=== PATIENT | female | born 1945 | race Caucasian/White ===

== ENCOUNTER 2022-08-31 08:48 | Emergency (ER) | payer OTHER, SELFPAY ==
[2022-08-31] VITALS (65 sets, daily range): BP systolic 57–163; BP diastolic 30–121; PULSE 80–127; RESP 20; TEMP 36.2; O2SAT 92–100
--- NOTE | 2022-08-31 09:37 | ED.GENADULT ---
HPI - General Adult General Time Seen by Provider: 09:37 Date Seen: 08/31/22 Chief complaint: Edema Stated complaint: Facial and tongue swelling +Covid 9 days Time Seen by Provider: 08/31/22 09:37 Source: patient, RN notes reviewed and old records reviewed Mode of arrival: ambulatory Limitations: no limitations History of Present Illness HPI narrative: Mary Jane is a very pleasant 77-year-old female with a history of hypertension currently on lisinopril, history of GERD currently on Protonix who comes to the emergency room for facial swelling. Patient notes the onset of some mild facial swelling yesterday morning at 1000 hours. She notes that she noticed this after she was brushing her teeth. She had no gum pain or recent work on her teeth. Last night she took a Benadryl after the swelling seemed to spread to her upper lip. Throughout the next 24 hours she has noticed gradual spreading of this to across her upper lip to her left lower jaw line and now to the right side of her tongue. She has never had this happen to her in the past. She denies any new medications or [id number]-dqa-[id number] medications. She did take her lisinopril this morning. Patient denies any difficulty with breathing, wheezing, swallowing or sore throat. She has not noticed a change in her voice. She notes that she is on day 9 or 10 of a COVID illness. She denies respiratory problems or shortness of breath. Related Data Previous Rx's Medication Instructions Recorded lisinopril 40 mg tablet 40 mg PO QDAY #90 tabs 06/20/22 Allergies Allergy/AdvReac Type Severity Reaction Status Date / Time bacitracin AdvReac Intermediate Verified 08/31/22 09:02 [From Neosporin ([id number])] gentamicin AdvReac Intermediate Verified 08/31/22 09:02 neomycin AdvReac Intermediate Verified 08/31/22 09:02 [From Neosporin ([id number])] polymyxin B AdvReac Intermediate Verified 08/31/22 09:02 [From Neosporin ([id number])] tobramycin AdvReac Intermediate Verified 08/31/22 09:02 Review of Systems Status of ROS: Reports: 10 or more systems reviewed and unremarkable except as noted in History and below Const: Denies: fever or fatigue ENMT: Denies: throat pain, neck pain, throat swelling, difficulty swallowing or hoarseness Cardio: Denies: chest pain or shortness of breath with exertion Resp: Denies: shortness of breath or cough GI: Denies: abdominal pain, nausea or difficulty swallowing : Denies: painful urination Musculo: Denies: neck pain Integ/Breast: Reports: skin swelling Neuro: Denies: headache Endo: Denies: fatigue Allergy/Immuno: Denies: throat swelling PFSH PFSH Medical History Hypertension Social History Smoking Status: Smoker, status unknown Non-prescribed substance use: denies use Exam Narrative: Exam Narrative: Mary Jane is alert and oriented. Very well-spoken woman in no acute distress. Nontoxic in appearance Eyes are clear. Patient has obvious non erythematous edema of the upper lip with some slight protrude parents there. Mild fullness negligible of the right lower draw line. No pain with palpation. Dentition appear to be intact with no swelling of the gum line. Tongue shows some slight increased size on the right less than 25% of the tongue compromise. Posterior oropharynx easily seen and open. Neck is supple without lymphadenopathy. Heart with regular rate and rhythm and lungs are clear in all lung dalton. Abdomen soft. Lower extremities without edema or calf tenderness. Const: Vital Signs, click to edit/add: Vital Signs - 24 hr 08/31/22 08:57 08/31/22 09:50 08/31/22 13:43 Temperature 97.1 F L Pulse Rate 97 Pulse Rate [Right Pulse Oximeter] 83 Respiratory Rate 20 Blood Pressure Blood Pressure [Ri ght Upper Arm] 156/121 H Pulse Oximetry 100 97 Oxygen Delivery Me thod Room Air 08/31/22 14:00 08/31/22 14:02 08/31/22 14:20 Temperature Pulse Rate 83 86 87 Pulse Rate [Right Pulse Oximeter] Respiratory Rate Blood Pressure 161/94 H Blood Pressure [Ri ght Upper Arm] Pulse Oximetry 97 96 97 Oxygen Delivery Me thod 08/31/22 14:23 08/31/22 14:40 08/31/22 14:42 Temperature Pulse Rate 89 92 80 Pulse Rate [Right Pulse Oximeter] Respiratory Rate Blood Pressure 162/89 H 152/102 H Blood Pressure [Ri ght Upper Arm] Pulse Oximetry 97 98 98 Oxygen Delivery Me thod 08/31/22 14:43 08/31/22 15:00 08/31/22 15:02 Temperature Pulse Rate 89 93 92 Pulse Rate [Right Pulse Oximeter] Respiratory Rate Blood Pressure 149/97 H Blood Pressure [Ri ght Upper Arm] Pulse Oximetry 98 97 97 Oxygen Delivery Me thod 08/31/22 15:20 08/31/22 15:22 08/31/22 15:40 Temperature Pulse Rate 94 95 96 Pulse Rate [Right Pulse Oximeter] Respiratory Rate Blood Pressure 147/82 H Blood Pressure [Ri ght Upper Arm] Pulse Oximetry 97 97 97 Oxygen Delivery Me thod 08/31/22 15:42 08/31/22 16:00 08/31/22 16:01 Temperature Pulse Rate 109 H 99 102 H Pulse Rate [Right Pulse Oximeter] Respiratory Rate Blood Pressure 135/82 139/87 Blood Pressure [Ri ght Upper Arm] Pulse Oximetry 98 97 98 Oxygen Delivery Me thod 08/31/22 16:20 08/31/22 16:22 08/31/22 16:40 Temperature Pulse Rate 93 98 102 H Pulse Rate [Right Pulse Oximeter] Respiratory Rate Blood Pressure 141/69 H Blood Pressure [Ri ght Upper Arm] Pulse Oximetry 98 97 97 Oxygen Delivery Me thod 08/31/22 16:42 Temperature Pulse Rate 103 H Pulse Rate [Right Pulse Oximeter] Respiratory Rate Blood Pressure 139/83 Blood Pressure [Ri ght Upper Arm] Pulse Oximetry 96 Oxygen Delivery Me thod Documenting provider has reviewed patient's vital signs: yes Course Course Hospital Course: At this time I am most worried about angioedema. There does not appear to be underlying dental problems here. Patient is on day 9 or 10 of a COVID infection. She does not appear to have any sequela of that as she is breathing normally and oxygen saturations are 100%. At this time patient will receive dexamethasone 10 mg, Benadryl 50 mg, famotidine 20 mg IV. She will be monitor here in the emergency room. We did speak about the possibility of worsening symptoms and should that occur I will need to likely RSI/intubation and transfer for complement therapy. She does understand that. Reevaluation(s) Reevaluation #1: Patient noted to be improved at 1130 after having received steroids, H2 maricarmen as well as antihistamine. Will continue to monitor at this time. Reevaluation #2: Patient feels that she has been resting comfortably. She does not feel any worse than when she was previously checked on and she is better than when she 1st arrived. I feel that her exam shows that she has had mild improvement of the swelling but still has some edema edema in the upper lip. Time: 13:18 Reevaluation #3: Patient now noted to have worsening swelling once again although she still states she is feeling well. She has developed a slight list to her speech. Airway continues to be patent. Consult with [facility] expediter service order. Time: 16:00 Additional Reevaluation(s): Post epinephrine administration, hydroxyzine IM and repeat dose of steroids, patient is noted to be improved. Still has fullness of the jaw however and some slight edema of the upper lip. At this time would recommend continued monitoring and admission. Consultations Consultation #1: I had the pleasure of speaking to Dr. Fong expediter service order at [facility]. Patient's swelling has slightly worsened since she has been here. She herself does not feel better but I can visualize this. He did suggest the use of epi, repeat dose of dexamethasone 10 mg and hydroxyzine as he feels this has more antihistamine benefit than Benadryl does. I did discuss this with patient and she is willing to do a trial of this. If this is not helpful will need to call [facility] back as patient likely needs complement. Will consider RSI prior to transport. Time: 14:30 Vital Signs Vital signs: Initial Vital Signs Temperature 97.1 F L 08/31/22 08:57 Temperature Source Temporal Artery Scan 08/31/22 08:57 Pulse Rate 83 08/31/22 08:57 Pulse Rhythm 08/31/22 08:57 Respiratory Rate 20 08/31/22 08:57 Blood Pressure 156/121 H 08/31/22 08:57 Blood Pressure Mean 132 08/31/22 08:57 Blood Pressure Position Semi-Fowlers 08/31/22 08:57 Pulse Oximetry 100 08/31/22 08:57 Oxygen Delivery Method 08/31/22 08:57 Vital Signs Temperature 97.1 F L 08/31/22 08:57 Pulse Rate 83 08/31/22 08:57 Respiratory Rate 20 08/31/22 08:57 Blood Pressure 156/121 H 08/31/22 08:57 Pulse Oximetry 100 08/31/22 08:57 Oxygen Delivery Method 08/31/22 08:57 Temperature 97.1 F L 08/31/22 08:57 Pulse Rate 103 H 08/31/22 16:42 Respiratory Rate 20 08/31/22 08:57 Blood Pressure 139/83 08/31/22 16:42 Pulse Oximetry 96 08/31/22 16:42 Oxygen Delivery Method 08/31/22 08:57 Medical Decision Making MDM Narrative Medical decision making narrative: 1. Angioedema-patient received dexamethasone 10 mg, Benadryl 50 mg, famotidine 20 mg IV initially. She did show improvement but however did note increasing edema after approximately 2-1/2 hours. After consultation with expediter service order patient received additional dose of dexamethasone 10 mg, hydroxyzine 50 mg IM as well as EpiPen. Patient has had gradual improvement but again still has some mild persisting edema. I do not feel comfortable sending her home as she did take her morning dose of lisinopril. Plan is to admit to the floor if we are able. At this time no beds available until 2300 hours Patient is willing to stay in the emergency room if necessary. Medications for overnight include: Famotidine IV at 2200 hours Hydroxyzine 50 mg p.o. at 2200 hours and every 6 hours after that. Epi as needed for recurrent symptoms. Should a 2nd dose of epinephrine be needed suggest transfer to tertiary care for complement therapy. If patient needs to stay in the ED overnight and has resolution of symptoms will need to discharge home on prednisone 40 mg daily for 4 days, Zyrtec 10 mg p.o. b.i.d. for 4 days. This case will be signed out to my partner Dr. Vazquez. At this point I have spoken with Dr. Philippe hospitalist should a bed become available at 2300 hours. Medical Records Medical records reviewed: Yes I reviewed the patient's medical records Lab Data Lab results reviewed: Yes I reviewed the patient's lab results Labs: Lab Results 08/31/22 08/31/22 Range/Units 09:50 09:50 WBC 6.29 (4.50-11.00) K/uL RBC 4.02 (4.00-5.20) m/uL Hgb 12.2 (12.0-16.0) gm/dL Hct 38.8 (33.0-51.0) % MCV 97 (80-100) fL MCH 30 (26-34) pg MCHC 31 L (32-36) gm/dL RDW Coeff of Valdo 13.1 (11.5-15.5) % Plt Count 332 (140-440) K/uL Neut % (Auto) 65.0 (42.0-72.0) % Lymph % (Auto) 22.7 (20-44) % Pennington % (Auto) 8.3 (0.0-11.0) % Eos % (Auto) 3.2 (0.0-7.0) % Baso % (Auto) 0.6 (0.0-3.0) % Neut # (Auto) 4.09 (1.7-7.0) K/uL Lymph # (Auto) 1.43 (0.90-2.90) K/uL Pennington # (Auto) 0.50 (0.00-0.90) K/UL Eos # (Auto) 0.20 (0.00-0.50) K/uL Baso # (Auto) 0.04 (0.00-0.30) K/uL Abs Immat Gran (auto) 0.01 (0.00-0.30) K/uL Imm/Tot Granulo (auto) 0.2 % Sodium 141 (135-149) mmol/L Potassium 4.0 (3.6-5.1) mmol/L Chloride 107 (96-114) mmol/L Carbon Dioxide 27 (20-32) mmol/L BUN 21 (7-30) mg/dL Creatinine 0.9 (0.5-1.5) mg/dL Estimated GFR 66 ml/min Glucose 105 (60-115) mg/dL Calcium 9.4 (8.4-10.6) mg/dL Total Bilirubin 0.6 (0.1-1.5) mg/dL AST 31 (12-35) U/L ALT 25 (4-35) U/L Alkaline Phosphatase 87 (40-150) U/L C-Reactive Protein 0.7 (0.5-1.0) mg/dL Total Protein 7.8 (6.0-8.3) g/dL Albumin 4.4 (3.3-5.0) g/dL Procalcitonin 0.05 (<0.50) ng/mL Critical Care Time Critical Care Time Critical Care Time: Yes Attestation: The patient required my highest level preparedness to intervene emergently and I personally spent this critical care time directly and personally managing the patient. This critical care time included: Obtaining a history; Examining the patient; Pulse oximetry; Ordering and reviewing of studies; Arranging urgent treatment with development of a management plan; Evaluation of patients response to treatment; Frequent reassessment discussions with other providers. This critical care time was performed to assess and manage the high probability of imminent life-threatening deterioration that could result in multiorgan failure. It was exclusive of separate billable procedures and treating other patients and teaching time. Total Critical Care Time in Minutes: 90 Discharge Plan Discharge Clinical Impression: Angio-edema Patient Disposition: Home, Self-Care Condition: Improved Additional Instructions: For patient if she is discharged from the emergency room: Stop lisinopril. This is most likely the cause of your facial swelling. You will need to follow-up with your primary MD for new blood pressure medications. Zyrtec 10 mg twice daily for 4 days Prednisone 40 mg daily for 4 days Return to the emergency room for worsening symptoms especially for swelling of the face or tongue. Prescriptions: No Action lisinopril 40 mg tablet 40 mg PO QDAY Qty: 90 0RF Follow Up/Referrals: Anderson Castillo MD [Primary Care Provider] - Stand Alone Forms: [facility] Info Instructions
--- OUTSIDE RECORDS SUMMARY | 2022-08-31 10:05 | XMS_ITS | Encounter Summary ---
:1945 Author Organization [facility] Address [address] [place] [address] Care Team Providers Name Role Phone Chastity Davidson M.D. 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 - 01/03/2019 2:15 PM CDT PREPROCEDURE DIAGNOSIS: Ganglion cyst left ring finger POSTPROCEDURE DIAGNOSIS: Ganglion cyst left ring finger PROCEDURE: Excision of ganglion cyst from the left ring finger SURGEON: Jesus Choe MD ASSIST: None ANESTHESIA: Local EBL: Minimal COMPLICATIONS: None DESCRIPTION OF THE PROCEDURE: Prior to the procedure the risks and benefits of the procedure were discussed with the patient. Written consent was obtained and the site was identified. The patient was brought to the procedure room and placed in the supine position. Patient was prepped and draped in usual sterile fashion. Patient identified using preoperative pause. Attention was turned to the patient's left ring finger where there was a 8 mm subcutaneous ganglion cyst just proximal to the PIP joint. A longitudinal incision was made in the skin overlying the cyst using a 15 blade and then blunt sharpdissection was used to dissect out the cystic mass. The mass was excised in its entirety. The wound was irrigated with normal saline and the skin was closed using interrupted 4-0 Prolene sutures. Clean, dry dressings were applied. The patient tolerated the procedure well. There were no complications. documented in this encounter Plan of Treatment Not on filedocumented as of this encounter Visit Diagnoses Diagnosis Mass Finger Left documented in this encounter Care Teams Textile Machine Operator Relationship Specialty Start Date End Date Chastity Davidson M.D. PCP - General 03/19/17 01/11/20 documented as of this encounter
--- OUTSIDE RECORDS SUMMARY | 2022-08-31 10:05 | XMS_ITS | Encounter Summary ---
:1945 Author Organization [facility] Address [address] [place] [address] Care Team Providers Name Role Phone Chastity Davidson M.D. Primary Care Provider Unavailable Reason for Visit Reason Comments Follow-up Post-op Follow-up Post-op Outpatient (Routine) - Closed Specialty Diagnoses / Procedures Referred By Contact Refer red To Contact Orthopedic Surgery Gabriela Hernandez, [facility] [address] [place] [phone] Referral ID Status Reason Start Date Expiration Date Visits Requ ested Visits Authorized [id number] Closed 12/08/2018 12/08/2019 1 1 Encounter Details Date Type Department Care Team Description 06/10/2019 Office Visit Department of Fausto Hoffman, Follow Up Knee Orthopedic Surgery in [place] 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 - 06/10/2019 8:00 AM CDT SUBJECTIVE Pain reported: CHIEF COMPLAINT / REASON FOR VISIT Mary Jane Rockwell is a 74 y.o. female who presents for follow-up of Follow-up and Post-op of the Left Knee and Follow-up and Post-op of the Right Knee and is under the care of Chastity Davidson M.D.. HISTORY OF PRESENT ILLNESS Patient is a very pleasant 74-year-old female presenting today with her for revaluation of her knees. She is status post total knee arthroplasties approximately 1 year ago. Today she is doing quite well. She is very happy with the outcome of her knees. She has no pain and has been using it normally without difficulty or issue. Denies fevers or chills. No numbness or paresthesias. Her surgical history is notable for: Past Surgical History: Procedure Laterality Date ??? ARTHROPLASTY REPLACEMENT TOTAL KNEE Left 03/30/2018 Procedure: ARTHROPLASTY REPLACEMENT TOTAL KNEE; Surgeon: Fausto Hoffman D.O.; Location: [facility] ??? ARTHROPLASTY REPLACEMENT TOTAL KNEE Right 06/01/2018 Procedure: ARTHROPLASTY REPLACEMENT TOTAL KNEE; Surgeon: Fausto Hoffman D.O.; Location: [facility] ??? COLONOSCOPY N/A 02/01/2018 Procedure: COLONOSCOPY; Surgeon: Jazmyne Weaver M.D.; Location: [facility] ??? CYST REMOVAL ??? ESOPHAGOGASTRODUODENOSCOPY N/A 02/01/2018 Procedure: ESOPHAGOGASTRODUODENOSCOPY; Surgeon: Jazmyne Weaver M.D.; Location: [facility] ??? TONSILLECTOMY AND ADENOIDECTOMY N/A 1950 Tonsillectomy and adenoidectomy The following portions of the patient's history were reviewed and updated as appropriate: allergies,current medications, family history, medical history, social history, surgical history and problem list. REVIEW OF SYSTEMS All other systems reviewed and are negative. OBJECTIVE PHYSICAL EXAM Ortho Exam General Appearance: Appears to be their stated age and healthy. Body habitus: Normal. The patient isalert and oriented to person, place, and time. The patient's mood appears good. HEENT: Normocephalic, extraocular movements intact. Respiratory: Respirations are unlabored. Psych: Patient has a normal mood and affect. Extremities: Today her knees demonstrate essentially symmetric appearance. No erythema or ecchymosis. Incisions are well healed. No effusion. She has full extension bilaterally with flexion to approximately 130??. Knees are stable to varus valgus stress testing. Negative Homans. She has intact EHL FHLdorsiflexion and plantar flexion. Sensations are intact distally and symmetric. Cap refills are brisk. IMAGING Obtained radiographs of both knees were obtained reviewed. X-rays do not demonstrate new acute process. No fractures or dislocations. No interval change regarding alignment or positioning of components. ASSESSMENT / PLAN 1. Status post right total knee arthroplasty 06/01/2018 2. Status post left total knee arthroplasty, 03/30/2018 ?? Today we had a lengthy discussion patient regarding her knees. She continues to do quite well. She is happy with her outcome, as are we. She is using it normally without pain or restriction. Today we did discuss precautions regarding her knee replacements. All her questions were answered in detail. Atthis point she may follow up with us on an as-needed basis. She voiced understanding agreement this plan. documented in this encounter Plan of Treatment Not on filedocumented as of this encounter Visit Diagnoses Diagnosis Follow Up Knee Replacement Status Post - Primary documented in this encounter Care Teams Cycle Manager Relationship Specialty Start Date End Date Chastity Davidson M.D. PCP - General 03/19/17 01/11/20 documented as of this encounter
--- OUTSIDE RECORDS SUMMARY | 2022-08-31 10:05 | XMS_ITS | Encounter Summary ---
:1945 Author Organization [facility] Address [address] [place] [address] Care Team Providers Name Role Phone Chastity Davidson M.D. Primary Care Provider Unavailable Reason for Referral Outpatient (Routine) - Closed Specialty Diagnoses / Procedures Referred By Contact Refer red To Contact Plastic Surgery Diagnoses Mass Finger Left [facility]ush [address] [place] [phone] Referral ID Status Reason Start Date Expiration Date Visits Requ ested Visits Authorized [id number] Closed 12/07/2018 12/07/2019 1 1 LINING PASTER Reason for Visit Reason Comments Other cyst on left ring finger Encounter Details Date Type Department Care Team Description 12/07/2018 Office Visit Department of Family Matt Davidson Left Medicine in Ankush Haywood (Primary Dx) [address] [phone] Social History Tobacco Use Types Packs/Day Years Used Date Smoking Tobacco: Former Cigarettes 0.3 35 Smokeless Tobacco: Never Comments: quit about 10 yrs ago Alcohol Use Standard Drinks/Week Comments Yes 3 (1 standard drink = 0.6 oz pure 2x or so per month 1 drink each alcohol) time Sex Assigned at Date Recorded Female 10/12/2017 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 - 12/07/2018 10:00 AM CST SUBJECTIVE CHIEF COMPLAINT/REASON FOR VISIT Chief Complaint Patient presents with ??? Other cyst on left ring finger HISTORY OF PRESENT ILLNESS Mary Jane Rockwell is a 73 y.o. female who presents with off mass on her left 4th finger on the side of the finger between PIP and MCP. She had a similar 1 above her wrist that was taken off. She saysit has been about 2 months and her said it has been about 2 years that it has been there. Itis nontender but she can't get her ring on and off. REVIEW OF SYSTEMS Review of systems was negative except as noted in HPI. ALLERGIES/CONTRAINDICATIONS Allergies Allergen Reactions ??? Gentamicin Other (see comments) Made my eyes worse ??? Neosporin (Sff-Sjx-Boogg) [Rsukdgbr-Kmawagxcbt-Vaifmtwmz] Other (see comments) ??? Tobramycin Other (see comments) Made my eyes worse CURRENT MEDICATIONS Current Outpatient Prescriptions Medication Sig Dispense Refill ??? acetaminophen (for_TYLENOL 8 HR) 650 mg ER tablet Take 1,300 mg by mouth 2 (two) times a day. Asneeded ??? CALCIUM CARBONATE/VITAMIN D3 (CALCIUM WITH VITAMIN D ORAL) Take by mouth daily. ??? lisinopril (PRINIVIL,ZESTRIL) 5 mg tablet Take 1 tablet (5 mg total) by mouth daily. 90 tablet 1 ??? multivitamin capsule Take by mouth daily. ??? pantoprazole (PROTONIX) 20 mg EC tablet Take 1 tablet (20 mg total) by mouth daily. 90 tablet 3 OBJECTIVE VITAL SIGNS BP 136/84 (BP Location: Left arm, Patient Position: Sitting, Cuff Size: Large) Pulse 76 Temp 36.7 ??C (Temporal) Resp 20 Wt 84.8 kg BMI 34.40 kg/m?? PHYSICAL EXAMINATION General: The patient is in no apparent distress and is alert and oriented. Mood and affect normal. Patient is very pleasant. Lungs: Clear to auscultation bilaterally. Heart: Regular rate and rhythm without murmur. Extremities: As described above on the side of the left ring finger there is a 2 cm x 1 cm by 0.5 cmtall soft slightly bluish mass. . ASSESSMENT / PLAN #1 Mass Finger Left We are going to refer her to Plastic surgery because of where this is along the neurovascular chain of that finger. - Plastic Surgery - Hand and upper extremity consult (clinic); Future; Expected date: 12/07/2018 ADMINISTRATIVE BILLING Total time spent 20 minutes, 15 minutes spent in counseling and coordination of care. LINING PASTER documented in this encounter Plan of Treatment Scheduled Referrals Name Type Priority Associated Diagnoses [facility] - [facility]patient Referral Routine Mass Finger Left Expected: Hand and upper 12/07/2018 extremity consult (Approxima te), (clinic) Expires: 12/07/2021 documented as of this encounter Visit Diagnoses Diagnosis Mass Finger Left - Primary documented in this encounter Care Teams Bridge Maintenance Worker Relationship Specialty Start Date End Date Chastity Davidson M.D. PCP - General 03/19/17 01/11/20 documented as of this encounter
--- OUTSIDE RECORDS SUMMARY | 2022-08-31 10:05 | XMS_ITS | Encounter Summary ---
:1945 Author Organization [facility] Address [address] [place] [address] Care Team Providers Name Role Phone Elsewhere, Pcp Primary Care Provider Unavailable Encounter Details Date Type Department Care Team Description 07/30/2021 Orders Only [facility] PCP [facility] Aaron Lerner, D.O. 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
--- OUTSIDE RECORDS SUMMARY | 2022-08-31 10:05 | XMS_ITS | Encounter Summary ---
:1945 Author Organization [facility] Address [address] [place] [address] Care Team Providers Name Role Phone Chastity Davidson M.D. Primary Care Provider Unavailable Encounter Details Date Type Department Care Team Description 09/09/2019 Orders Only [facility]CP [facility] MNBart Padilla M.D. 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 PCP - General 03/19/17 01/11/20 documented as of this encounter
--- OUTSIDE RECORDS SUMMARY | 2022-08-31 10:05 | XMS_ITS | Encounter Summary ---
:1945 Author Organization [facility] Address [address] [place] [address] Care Team Providers Name Role Phone Chastity Davidson M.D. Primary Care Provider Unavailable Reason for Visit Reason Comments Deformity Ring finger Outpatient (Routine) - Closed Specialty Diagnoses / Procedures Referred By Contact Refer red To Contact Plastic Surgery Diagnoses Mass Finger Left Chastity Davidson [facility] [address] [place] [phone] Referral ID Status Reason Start Date Expiration Date Visits Requ ested Visits Authorized [id number] Closed 12/07/2018 12/07/2019 1 1 Encounter Details Date Type Department Care Team Description 12/22/2018 Comprehensive Visit Department of Jesus Choe Mass Finger Left Orthopedic Surgery Ankush Trotter (Primary Dx) in [address] [place], [place] [phone] (Work) [phone] Social History Tobacco Use Types Packs/Day Years Used Date Smoking Tobacco: Former Cigarettes 0.3 35 Smokeless Tobacco: Never Comments: quit about 10 yrs ago Alcohol Use Standard Drinks/Week Comments Yes 3 (1 standard drink = 0.6 oz pure 2x or so per month 1 drink each alcohol) time Sex Assigned at Date Recorded 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 - 12/22/2018 2:30 PM CDT SUBJECTIVE CHIEF COMPLAINT / REASON FOR VISIT Mary Jane Rockwell is a 73 y.o. female who presents for evaluation of Deformity of the Left Hand (Ring finger). HISTORY OF PRESENT ILLNESS Cherri is a 73-year-old woman who presents today for evaluation and treatment of a mass of her left ring finger. The mass has been there for several months. She denies any pain from the cyst however shedoes note that it is no longer possible to fit her wedding ring on. She denies any history of trauma. Past Surgical History: Procedure Laterality Date ??? ARTHROPLASTY REPLACEMENT TOTAL KNEE Left 03/30/2018 Procedure: ARTHROPLASTY REPLACEMENT TOTAL KNEE; Surgeon: Fausto Hoffman D.O.; Location: [facility] ??? ARTHROPLASTY REPLACEMENT TOTAL KNEE Right 06/01/2018 Procedure: ARTHROPLASTY REPLACEMENT TOTAL KNEE; Surgeon: Fausto Hoffman D.O.; Location: [facility] ??? COLONOSCOPY N/A 02/01/2018 Procedure: COLONOSCOPY; Surgeon: Jazmyne Weaver M.D.; Location: [facility] ??? CYST REMOVAL ??? ESOPHAGOGASTRODUODENOSCOPY N/A 02/01/2018 Procedure: ESOPHAGOGASTRODUODENOSCOPY; Surgeon: Jazmyne Weaver M.D.; Location: [facility] ??? TONSILLECTOMY AND ADENOIDECTOMY N/A 1950 Tonsillectomy and adenoidectomy The following portions of the patient's history were reviewed and updated as appropriate: allergies,current medications, medical history, social history, surgical history and problem list. Smoking status: Former Smoker Packs/day: 0.25 Years: 35.00 Types: Cigarettes Smokeless tobacco: Never Used Comment: quit about 10 yrs ago REVIEW OF SYSTEMS Review of Systems OBJECTIVE Vitals: 12/22/18 1423 BP: 126/82 Pulse: 70 Temp: 36.2 ??C PHYSICAL EXAM GENERAL: Well appearing in no apparent distress. NEURO: Alert and oriented x 3 PSYCH: Normal mood and affect HEENT: Extra ocular movements intact. Normal external ears. RESPIRATORY: Respirations non-labored. SKIN: No rashes, lacerations or abrasions. VASCULAR: Normal capillary refill. Ortho Exam Evaluation of the left ring finger demonstrates a roughly 1 cm firm mass along the dorsum of the PIPjoint. The mass is firm but mobile. She has full range of motion in the joint. ASSESSMENT / PLAN Mary Jane Rockwell is a 73 y.o. woman with what appears to be a simple ganglion cyst arising from the PIP joint of the left ring finger. We discussed treatment options including aspiration and surgical excision. She prefers to have the lesion excised. We will make arrangements to have this performed in the procedure room under local anesthesia at a later date. documented in this encounter Plan of Treatment Scheduled Orders Name Type Priority Associated Diagnoses Order S chedule ORS Miscellaneous Procedures Routine Mass Finger Left Expect ed: procedure 12/22/2018 (Approximate), Expires: 2021 documented as of this encounter Visit Diagnoses Diagnosis Mass Finger Left - Primary documented in this encounter Care Teams Maintenance Worker Municipal Relationship Specialty Start Date End Date Chastity Davidson M.D. PCP - General 03/19/17 01/11/20 documented as of this encounter
--- OUTSIDE RECORDS SUMMARY | 2022-08-31 10:05 | XMS_ITS | Encounter Summary ---
:1945 Author Organization [facility] Address [address] [place] [address] Care Team Providers Name Role Phone Chastity Davidson M.D. Primary Care Provider Unavailable Reason for Visit Reason Comments Med Refill Encounter Details Date Type Department Care Team Description 04/20/2019 Refill Department of Family Medicine in [facility]anna Temple L.P.N. 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 PCP - General 03/19/17 01/11/20 documented as of this encounter
--- OUTSIDE RECORDS SUMMARY | 2022-08-31 10:05 | XMS_ITS | Encounter Summary ---
:[address] [facility] Address [address] [place] [address] Care Team Providers Name Role Phone Zandra Valera APRN, C.N.P., M.S.N. Primary Care Provider Encounter Details Date Type Department Care Team Description 11/09/2020 Orders Only [facility] Lees Jr[facility] M.D. 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 PCP - General 01/12/20 12/25/[address] [place] [address] [place] [phone] documented as of this encounter
--- OUTSIDE RECORDS SUMMARY | 2022-08-31 10:05 | XMS_ITS | Clinical Summary ---
:1945 Author Organization [facility] Address [address] [place] [address] Care Team Providers Name Role Phone Elsewhere, Pcp Primary Care Provider Unavailable Source Comments Patient records contain information from all sites at [facility]. For routine questions regarding patient records, call [phone] during business hours, M-F 8:00 AM - 5:00 PM Central Time. Record requests for emergency care only can be directed to [phone] at any time.[facility] Allergies Active Allergy Reactions Severity Noted Date Comments Gentamicin Other (see comments) 11/13/2009 Made my eyes worse Yucxqoxa-Fwhlfiszeq-Gzjus Other (see comments) 010 Triple antibotic yxin Tobramycin Other (see comments) 11/13/2009 Made my eyes worse Medications Medication Sig Dispensed Refills Start Date End Date Status CALCIUM Take by mouth 0 11/13/2009 Activ e CARBONATE/VITAMIN D3 daily. (CALCIUM WITH VITAMIN D ORAL) multivitamin capsule Take by mouth 0 11/13/2009 Active daily. acetaminophen Take 1,300 mg by 0 Active (for_TYLENOL 8 HR) 650 mouth 2 (two) mg ER tablet times a day. As needed amoxicillin (AMOXIL) Take four (4) 4 capsule 0 12/22/2018 Active 500 mg capsule capsules - one (1) to two (2) hours prior to dental appointment. Additional Information Patient not taking. Reported on 12/02/2019 pantoprazole (PROTONIX) 20 mg Take 1 tablet (20 mg 90 tablet 3 12/02/2019 Active EC tablet total) by mouth daily. lisinopriL (PRINIVIL,ZESTRIL) Take 1 tablet (10 mg 90 tablet 3 12/02/2019 Active 10 mg tablet total) by mouth daily. Active Problems Problem Noted Date Chronic Idiopathic Constipation 06/02/2018 Gastroesophageal Reflux Disease 06/01/2018 Hypertension Essential Primary 06/01/2018 Follow Up Knee Replacement Status Post 05/10/2018 Overview: Added automatically from request for mindy matias [id number] Anemia 11/06/2017 Overview: Added automatically from request for mindy matias [id number] Hemorrhage Gastrointestinal 10/22/2017 Arthropathy 11/14/2009 Aftercare Total Knee Arthroplasty Resolved Problems Problem Noted Date Resolved Date Primary Osteoarthritis Knee Right 03/03/20182018 Primary Osteoarthritis Knee Left 03/03/2018 019 Hypertension Benign Renovascular 12/24/2010 020 Overview: Benign hypertension Immunizations Name Administration Dates Next Due Influenza, Unspecified 07/24/2014 PCV13 10/12/2017 PPSV23 12/17/2010 Tdap 01/14/2011 influenza high dose (65 years or older) 08/20/2017, 06/20/20 16, 08/31/2015 (PF) Family History Medical History Relation Name Comments Parkinsons disease Aunt Colon cancer Father Lung cancer Grandfather Prostate cancer Grandfather Dementia Grandmother Breast cancer Mother Alcohol consumption Son 1 carlos Anxiety State, Unspecified Son 1 carlos Hypertension Son 1 carlos Hypertension Son 2 warner Relation Name Status Comments Aunt Daughter cesia Alive Father Grandfather Grandmother Mother Son 1 carlos Alive Son 2 warner Alive Social History Tobacco Use Types Packs/Day Years Used Date Smoking Tobacco: Former Cigarettes 0.3 35 Smokeless Tobacco: Never Comments: quit about 10 yrs ago Alcohol Use Standard Drinks/Week Comments Yes 3 (1 standard drink = 0.6 oz pure 2x or so per month 1 drink each alcohol) time Sex Assigned at Date Recorded 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 Last Filed Vital Signs Vital Sign Reading Time Taken Comments Blood Pressure 160/101 03/31/2020 4:00 PM CDT Pulse 73 03/31/2020 3:45 PM CDT Temperature 36.9 ??C (98.4 ??F) 03/31/2020 12:56 PM CDT Respiratory Rate 20 03/31/2020 12:56 PM CDT Oxygen Saturation 99% 03/31/2020 3:45 PM CDT Inhaled Oxygen Concentration - - Weight 87.5 kg (192 lb 14.4 oz) 03/31/2020 12:55 PM CDT Height 160 cm (5' 3) 03/31/2020 12:55 PM CDT Body Mass Index 34.17 03/31/2020 12:55 PM CDT Plan of Treatment Health Maintenance Due Date Last Done Comments Office Visit for Blood Pressure 1945 Check / Re-check Zoster Vaccines (1 of 2) 1995 Depression Screening (Annual 10/05/2021 PHQ-2) Fall Risk Screen (Annual) 10/05/2021 DTaP,Tdap,and Td Vaccines (3 - Td 06/23/2032 06/23/2022, or Tdap) Pneumococcal vaccine (65+ years) Completed 10/12/2017, Colonoscopy Discontinued 02/01/2018, 01/27/2006 Colorectal Cancer Surveillance Discontinued Hepatitis C Screening Completed 12/02/2019 Mammogram Discontinued 10/22/2020, 10/14/2019, 10/07/2018, Additional history exists COVID-19 Vaccine Completed 06/23/2022, 08/01/2021, 12/16/2020, Additional history exists Influenza Vaccine Completed 06/23/2022, 07/05/2021, 07/19/2020, Additional history exists CT Colonography Discontinued Cologuard Discontinued Medical Devices Implanted Type Area Drums Teacher Device Identifier Shelf Model / Expiration Serial / Date Lot Cmnt Bn Hi Visc Pmma 40 - [id number] Bone Cement Stryke r [id number] 10/04/2019 [id number] / Implanted: Qty: 1 on 06/01/2018 by Fausto Hoffman D.O. at [facility] / [id number] Ins Tib Att Rot Ps Sz4 7 - [id number] Knee Left: [employer] [id number] 05/04/2022 [id number] / Implanted: Qty: 1 on 03/30/2018 by Fausto Hoffman D.O. at [facility] Implant Knee / [id number] Ins Tib Att Rot Ps Sz4 10 - [id number] Knee Depuy Synthes [id number] 06/04/2022 [id number] / Implanted: Qty: 1 on 06/01/2018 by Fausto Hoffman D.O. at [facility] Implant / [id number] Insurance Payer Benefit Plan / Subscriber ID Effective Dates Phone Addre ss Type Group AETNA AETNA MEDICARE [id number] 2021-Present [phone] [address] [place] [address] AARP AARP MEDICARE [id number] 2020-Present [phone] [address] [address] [place] [address] Advance Directives For more information, please contact: [phone] Documents on File Type Date Recorded Patient Store Team Leader Explanati on Advance Directives 04/02/2018 11:24 AM Health Car e Directive Latest Code Status on File Code Status Date Activated Date Inactivated Comments Full Code 06/01/2018 3:40 PM 06/03/2018 1:12 PM Question Answer Comments Full Code: Discussed Code Status History Code Status Date Activated Date Inactivated Comments Full Code 06/01/2018 6:24 AM 06/01/2018 3:40 PM Question Answer Comments Full Code: Discussed Full Code 03/30/2018 1:27 PM 04/01/2018 4:24 PM Question Answer Comments Full Code: Discussed Full Code 03/30/2018 7:46 AM 03/30/2018 1:26 PM Question Answer Comments Full Code: Discussed Healthcare Agents on File Name Relationship Healthcare Agent Relationship Co mmunication Nima Rockwell Spouse Health Care Agent [phone] ( Home) Cesia Rockwell Daughter First Alternate Health Care Age nt Warner Rockwell Son Second Alternate Health Care Ag ent Care Teams Tent Assembler Relationship Specialty Start Date End Date Elsewhere, Pcp PCP - General Family Medicine 12/26/20
--- OUTSIDE RECORDS SUMMARY | 2022-08-31 10:05 | XMS_ITS | Encounter Summary ---
:1945 Author Organization [facility] Address [address] [place] [address] Care Team Providers Name Role Phone Chastity Davidson M.D. Primary Care Provider Unavailable Encounter Details Date Type Department Care Team Description 06/10/2019 Hospital Encounter Department of Gabriela Hernandez 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 As needed amoxicillin (AMOXIL) 500 Take four (4) 4 capsule 0 12/23/19 19 mg capsule capsules - one (1) to two (2) hours prior to dental appointment. CALCIUM CARBONATE/VITAMIN Take by mouth daily. 0 11/13/2009 D3 (CALCIUM WITH VITAMIN D ORAL) multivitamin capsule Take by mouth daily. 0 11/13 lisinopril Take 1 tablet (5 mg 90 tablet 1 04/20/201912/02 (PRINIVIL,ZESTRIL) 5 mg total) by mouth tablet daily. pantoprazole (PROTONIX) Take 1 tablet (20 mg 90 tablet 3 12/02/2019 20 mg EC tablet total) by mouth daily. documented as of this encounter Plan of Treatment Not on filedocumented as of this encounter Procedures Procedure Name Priority Date/Time Associated Comments Diagnosis DX KNEE BILATERAL RAD - Routine 06/10/2019 7:30 Aftercare Total Res ults for this 3 VIEWS (most inpatients AM CDT Knee Arthroplasty proced ure are in and all the results outpatients) section. documented in this encounter Results DX Knee Bilateral 3 Views (06/10/2019 7:30 AM CDT) Anatomical Region Laterality Modality Lower Extremity, Knee, Musculoskeletal RST LOS, Bilateral Digital Radiography Musculoskeletal ARZ LOS, Muskuloskeletal FLA LOS Specimen (Source) Anatomical Collection Method Collection Time Re ceived Time Location / / Volume Laterality 06/10/2019 8:06 AM CDT Impressions 06/10/2019 8:08 AM CDT Stable bilateral total knee arthroplasti es. Narrative 06/10/2019 8:08 AM CDT EXAM: DX KNEE BILATERAL 3 VIEWS COMPARISON: 12/08/2018 and 07/05/2018. FINDINGS: Soft tissues are unremarkable except for a left knee joint effusion. No fracture or destructive lesion is rafael ntified. Bilateral total knee arthroplasties are stable and unchanged. There is no significant interval change compared with 12/08/2018 and 07/05/2018. Procedure Note Pierre Marquez Jr., M.D. - 2018 EXAM: DX KNEE BILATERAL 3 VIEWS COMPARISON: 12/08/2018 and 07/05/2018. FINDINGS: Soft tissues are unremarkable except for a left knee joint effusion. No fracture or destructive lesion is rafael ntified. Bilateral total knee arthroplasties are stable and unchanged. There is no significant interval change compared with 12/08/2018 and 07/05/2018. IMPRESSION: Stable bilateral total knee arthroplasti es. Gabriela Hernandez P.A.-C. [facility] IMAGING PROC EDURES documented in this encounter Visit Diagnoses Diagnosis Aftercare Total Knee Arthroplasty documented in this encounter Care Teams Production Operations Manager Relationship Specialty Start Date End Date Chastity Davidson M.D. PCP - General 03/19/17 01/11/20 documented as of this encounter
--- OUTSIDE RECORDS SUMMARY | 2022-08-31 10:05 | XMS_ITS | Encounter Summary ---
:1945 Author Organization [facility] Address [address] [place] [address] Care Team Providers Name Role Phone Chastity Davidson M.D. Primary Care Provider Unavailable Reason for Referral Outpatient (Routine) - Closed Specialty Diagnoses / Procedures Referred By Contact Refer zoraida To Contact Orthopedic Surgery Gabriela Hernandez [facility] [address] [place] [phone] Referral ID Status Reason Start Date Expiration Date Visits Requ ested Visits Authorized [id number] Closed 12/08/2018 12/08/2019 1 1 T MANAGER Reason for Visit Reason Comments Follow-up LV: 09/08, L TKA, DOS 03/30, i edd completed, states she has no concerns Follow-up Outpatient (Routine) - Closed Specialty Diagnoses / Procedures Referred By Contact Ana Laura conway To Contact Orthopedic Surgery Gabriela Hernandez [facility]. [address] [place] [phone] Referral ID Status Reason Start Date Expiration Date Visits Requ ested Visits Authorized [id number] Closed 09/08/2018 09/08/2019 1 1 Encounter Details Date Type Department Care Team Description 12/08/2018 Office Visit Department of Gabriela [facility] Total Knee Orthopedic Surgery in [place] [facility] ([place], [place] [address] [phone] Social History Tobacco Use Types Packs/Day Years Used Date Smoking Tobacco: Former Cigarettes 0.3 35 Smokeless Tobacco: Never Comments: quit about 10 yrs ago Alcohol Use Standard Drinks/Week Comments Yes 3 (1 standard drink = 0.6 oz pure 2x or so per month 1 drink each alcohol) time Sex Assigned at Date Recorded 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 - 12/08/2018 2:45 PM CST REASON FOR VISIT Follow-up bilateral knee HISTORY OF PRESENT ILLNESS Mary Jane Rockwell is a 73 y.o. female who underwent a right total knee arthroplasty on 06/01/2018 and a left total knee arthroplasty on 03/30/[address] Hoffman. At her last appointment, patient was continuing to do quite well. Admitted to little to no pain. Was doing home exercise program. Today she states she continues to do well. No concerns or complaints. Overall very pleased with both knees. No other concerns today. Denies numbness, tingling, and fevers. SURGICAL HISTORY Past Surgical History: Procedure Laterality Date ??? ARTHROPLASTY REPLACEMENT TOTAL KNEE Left 03/30/2018 Procedure: ARTHROPLASTY REPLACEMENT TOTAL KNEE; Surgeon: Fausto Hoffman D.O.; Location: [facility] ??? ARTHROPLASTY REPLACEMENT TOTAL KNEE Right 06/01/2018 Procedure: ARTHROPLASTY REPLACEMENT TOTAL KNEE; Surgeon: Fausto Hoffman D.O.; Location: [facility] ??? COLONOSCOPY N/A 02/01/2018 Procedure: COLONOSCOPY; Surgeon: Jazmyne Weaver M.D.; Location: [facility] ??? CYST REMOVAL ??? ESOPHAGOGASTRODUODENOSCOPY N/A 02/01/2018 Procedure: ESOPHAGOGASTRODUODENOSCOPY; Surgeon: Jazmyne Weaver M.D.; Location: [facility] ??? TONSILLECTOMY AND ADENOIDECTOMY N/A 1950 Tonsillectomy and adenoidectomy HOME MEDICATIONS Home Medications ACETAMINOPHEN (FOR_TYLENOL 8 HR) 650 MG ER TABLET Take 1,300 mg by mouth 2 (two) times a day. As needed CALCIUM CARBONATE/VITAMIN D3 (CALCIUM WITH VITAMIN D ORAL) Take by mouth daily. LISINOPRIL (PRINIVIL,ZESTRIL) 5 MG TABLET Take 1 tablet (5 mg total) by mouth daily. MULTIVITAMIN CAPSULE Take by mouth daily. PANTOPRAZOLE (PROTONIX) 20 MG EC TABLET Take 1 tablet (20 mg total) by mouth daily. SOCIAL HISTORY Tobacco history is History Smoking Status ??? Former Smoker ??? Packs/day: 0.25 ??? Years: 35.00 ??? Types: Cigarettes Smokeless Tobacco ??? Never Used Comment: quit about 10 yrs ago . REVIEW OF SYSTEMS Constitutional: negative for chills, fever, nausea, vomiting. OBJECTIVE VITAL SIGNS BP 128/84 (12/08/18 1435) Temp 36.5 ??C (12/08/18 1435) Pulse Resp 14 (12/08/18 1435) SpO2 Body mass index is 34.69 kg/m??. LAB VALUES Lab Results Component Value Date WBC 6.7 06/03/2018 HGB 9.3 (L) 06/03/2018 HCT 28.9 (L) 06/03/2018 MCV 96.3 06/03/2018 PLT 244 06/03/2018 O PHYSICAL EXAM Orthopedic Physical Examination GENERAL: Patient appears alert, active, comfortable, and in no acute distress. The patient is alert and oriented to person, place, and time and able to follow commands. does answer all questions appropriately. SKIN/VASCULAR: The left lower extremity does appear well perfused. Dorsalis Pedis pulse is 2+ and capillary refill is <= 2 sec through all toes. Surgical site appearance: Intact. No significant erythema, ecchymosis, or concerns for infection. Calves are soft and nontender. MUSCULOSKELETAL: Attention was drawn to the patients bilateral lower extremities. Patient demonstrates unaffected ability to perform active ankle dorsiflexion, plantar flexion, inversion, eversion, as well as flex and extend all toes. EHL and FHL intact. Range of motion demonstrates range of motion dem onstrates 0 to 130?? bilaterally. Negative varus and valgus stress bilaterally. NEUROLOGIC: Intact sensation to light touch through the deep peroneal, superficial peroneal, sural, saphenous, and tibial nerve distributions of the affected leg. DIAGNOSTIC RESULTS Radiographs of the right knee demonstrate bilateral knee arthroplasties are intact. No acute fractures or dislocations noted. No evidence of loosening or dislocation. IMPRESSION/ASSESSMENT/PLAN 1. Status post right total knee arthroplasty performed on 06/01/[address] Hoffman 2. Status post left total knee arthroplasty performed on 03/30/[address] Hoffman Mary Jane Rockwell is a 73 y.o. female who is doing well and continuing to progress in her recoveryas expected. On exam she continues to be neurovascularly intact and has adequate range of motion. Overall we are very pleased with her progress. No concerns. She continues to be pain-free. Patient is approximately 6 months out from surgery on her right knee in 9 months out from surgery on her left knee. We will see her back in approximately 6 months for re-evaluation radiographs of her bilateral knees. ADMINISTRATIVE/BILLING No Charge, post-operative visit. T MANAGER documented in this encounter Plan of Treatment Scheduled Referrals Name Type Priority Associated Order Schedule Diagnoses Orthopedic Surgery Outpatient Referral Routine Ex pected: office visit 06/10/2019 (clinic) (Approximate), Expires: 12/08/2021 documented as of this encounter Results DX Knee Bilateral 3 [...] total knee arthroplasti es. Gabriela Hernandez P.A.-C. IMG DIAGNOSTIC IMAGING PROC EDURES documented in this encounter Visit Diagnoses Diagnosis Aftercare Total Knee Arthroplasty - Prim magdi Aftercare Total Knee Arthroplasty documented in this encounter Care Teams Garnett Mechanic Relationship Specialty Start Date End Date Chastity Davidson M.D. PCP - General 03/19/17 01/11/20 documented as of this encounter
--- OUTSIDE RECORDS SUMMARY | 2022-08-31 10:05 | XMS_ITS | Encounter Summary ---
:1945 Author Organization [facility] Address [address] [place] [address] Care Team Providers Name Role Phone Zandra Valera APRN, C.N.PLa, M.S.N. Primary Care Provider Encounter Details Date Type Department Care Team Description 03/05/2020 Orders Only [facility] PCP [facility] MNT Zandra Valera APRN, C.N.P., M.S.N. 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 PCP - General 01/12/20 12/25/20 [address] [facility] [place] [phone] documented as of this encounter
--- OUTSIDE RECORDS SUMMARY | 2022-08-31 10:05 | XMS_ITS | Encounter Summary ---
:1945 Author Organization [facility] Address [address] [place] [address] Care Team Providers Name Role Phone Chastity Davidson M.D. Primary Care Provider Unavailable Reason for Visit Reason Comments Post-op Left hand ring finger cyst e xcision Encounter Details Date Type Department Care Team Description 01/10/2019 Office Visit Department of Jesus Choe M.D. 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 - 01/10/2019 11:30 AM CDT REASON FOR VISIT Chief Complaint Patient presents with ??? Left Hand - Post-op Left hand ring finger cyst excision HPI Patient is a very pleasant 73 y.o. female here today status post excision of a ganglion cyst from the left ring finger on 01/03/2019 under the care of Dr. Choe. She feels as though this is well-healing. She denies any questions or concerns at the visit today. ROS Review of systems is negative other then pertinent positives in the HPI. VITAL SIGNS Vitals: 01/10/19 1119 BP: 128/74 Temp: 36.4 ??C Physical Exam GENERAL: Patient is well appearing, in no apparent distress NEURO: Patient is alert and oriented X3 PSYCH: Patient has normal and affect HEENT: Extraocular movements are intact. Ears are of normal positioning. RESPIRATORY: Respirations are unlabored MUSCULOSKELETAL: Patient moves extremities in a grossly normal range of motion. SKIN: Sutures were removed by nursing. Incision line remained clean, dry, and intact without erythema, induration, or drainage of the left ring finger. ASSESSMENT Ganglion cyst of the left ring finger status post excision PLAN Patient will continue to watch this area for any signs or symptoms of infection. She will call with questions, concerns, or any changes in symptoms. She was in agreement with this plan. documented in this encounter Plan of Treatment Not on filedocumented as of this encounter Visit Diagnoses Diagnosis Cyst Ganglion - Primary documented in this encounter Care Teams Welder Repair Relationship Specialty Start Date End Date Chastity Davidson M.D. PCP - General 03/19/17 01/11/20 documented as of this encounter
--- OUTSIDE RECORDS SUMMARY | 2022-08-31 10:05 | XMS_ITS | Encounter Summary ---
:1945 Author Organization [facility] Address [address] [place] [address] Care Team Providers Name Role Phone Elsewhere, Pcp Primary Care Provider Unavailable Reason for Visit Reason Comments Appointment BP check Encounter Details Date Type Department Care Team Description 10/19/2020 Clinical Communication Department of Jarocho Valera (BP Family Medicine in [facility], check) Marni Pollock, M.S.N. 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 - 12/26/2020 10:05 AM CDT Please attempt to contact patient, again. Inform patient nurse BP checks are no charge to patient and see if she would be willing to schedule. Telephone Encounter - Valeria Mukherjee - 10/19/2020 12:59 PM CST Patient states that do to insurance changes we are now out of network and she is working on checkingwith them to see if she can continue to come here or not. Does not want to schedule at this time. PREMISE SERVICE REPRESENTATIVE Telephone Encounter - Bonita Brooks L.PLaN. - 10/19/2020 11:41 AM OFF PREMISE SERVICE REPRESENTATIVE Please call patient to come in for a Blood Pressure check. Order is in the que. Thank you PREMISE SERVICE REPRESENTATIVE documented in this encounter Plan of Treatment Not on filedocumented as of this encounter Visit Diagnoses Not on filedocumented in this encounter Care Teams Undercover Cop Relationship Specialty Start Date End Date Elsewhere, Pcp PCP - General Family Medicine 12/26/20 documented as of this encounter
--- OUTSIDE RECORDS SUMMARY | 2022-08-31 10:05 | XMS_ITS | Encounter Summary ---
:1945 Author Organization [facility] Address [address] [place] [address] Care Team Providers Name Role Phone Zandra Valera APRN, C.N.P., M.S.N. Primary Care Provider Reason for Referral Outpatient (Routine) - Closed Specialty Diagnoses / Procedures Referred By Contact Refer red To Contact Diagnoses Screening Mammogram Average Risk Patient Zandra Valera APRN, [facility] Region Procedures BI Breast Screening Bilateral C.N.P., M.S.N. [address] [place] [phone] Referral ID Status Reason Start Date Expiration Date Visits Requ ested Visits Authorized [id number] Closed 10/19/2020 10/19/2021 1 1 ASSEMBLY TEAM WORKER Reason for Visit Outpatient (Routine) - Closed Specialty Diagnoses / Procedures Referred By Contact Refer red To Contact Diagnoses Screening Mammogram Average Risk Patient Zandra Valera APRN, [facility] Region Procedures BI Breast Screening Bilateral C.N.P., M.S.N. [address] [place] [phone] Referral ID Status Reason Start Date Expiration Date Visits Requ ested Visits Authorized [id number] Closed 10/19/2020 10/19/2021 1 1 Encounter Details Date Type Department Care Team Description 10/22/2020 Hospital Encounter Department of Kj Valera Mammogram Radiology in Zandra Allen APRN, Average Risk Patient [place] C.N.P., M.S.N. 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 As needed amoxicillin (AMOXIL) 500 Take four (4) 4 capsule 0 12/23/19 19 mg capsule capsules - one (1) to two (2) hours prior to dental appointment. CALCIUM CARBONATE/VITAMIN Take by mouth daily. 0 11/13/2009 D3 (CALCIUM WITH VITAMIN D ORAL) lisinopriL Take 1 tablet (10 mg 90 tablet 3 12/02/2019 (PRINIVIL,ZESTRIL) 10 mg total) by mouth tablet daily. multivitamin capsule Take by mouth daily. 0 11/13 pantoprazole (PROTONIX) 20 Take 1 tablet (20 mg 90 tablet 3 12/02/2019 mg EC tablet total) by mouth daily. documented as of this encounter Plan of Treatment Not on filedocumented as of this encounter Procedures Procedure Name Priority Date/Time Associated Comments Diagnosis BI BREAST RAD - Routine 10/22/2020 11:45 Screening Results fo r this SCREENING (most inpatients AM SUB ASSEMBLY TEAM WORKER Mammogram Average proced ure are in BILATERAL and all Risk Patient the results outpatients) section. documented in this encounter Results BI Breast Screening Bilateral (10/22/2020 11:45 AM SUB ASSEMBLY TEAM WORKER) Anatomical Region Laterality Modality Breast, Breast Imaging RST LOS, Breast Imaging ARZ LOS, H[address] st Bilateral Mammography Imaging FLA LOS Specimen (Source) Anatomical Collection Method Collection Time Re ceived Time Location / / Volume Laterality 10/22/2020 11:59 AM SUB ASSEMBLY TEAM WORKER Impressions 10/22/2020 12:00 PM SUB ASSEMBLY TEAM WORKER Benign. RECOMMENDATION: ??Annual Screening Mammo gram ASSESSMENT: ??BI-RADS: 2: Benign. Narrative 10/22/2020 12:00 PM SUB ASSEMBLY TEAM WORKER EXAM: ??BI BREAST SCREENING BILATERAL Current study was evaluated with a [employer] KROGNI Aided Detection (CAD) system. INDICATION: ??Screening mammogram. COMPARISON: ??Prior exam(s) were availab le and reviewed for comparison. DENSITY: ??c. The breast(s) are heteroge neously dense, which may obscure small masses. FINDINGS: ??No mammographic findings of malignancy. Scattered benign calcifications within both breasts. Procedure Note Yohan Bateman M.D. - 10/22/2020Formatt ing of this note might be different from the original. EXAM: BI BREAST SCREENING BILATERAL Current study was evaluated with a [employer] ter Aided Detection (CAD) system. INDICATION: Screening mammogram. COMPARISON: Prior exam(s) were available and reviewed for comparison. DENSITY: c. The breast(s) are heterogene ously dense, which may obscure small masses. FINDINGS: No mammographic findings of ma lignancy. Scattered benign calcifications within both breasts. IMPRESSION: Benign. RECOMMENDATION: Annual Screening Mammogr am ASSESSMENT: BI-RADS: 2: Benign. Michael Eugene APRNNSidney., M.S.N. IMG BI PROCEDURE S documented in this encounter Visit Diagnoses Diagnosis Screening Mammogram Average Risk Patient documented in this encounter Care Teams Scrap Iron Loader Relationship Specialty Start Date End Date Zandra Valera APRN, C.N.P., M.S.N. PCP - General 01/12/20 12/25/[address] [place] [address] [place] [phone] documented as of this encounter
--- OUTSIDE RECORDS SUMMARY | 2022-08-31 10:05 | XMS_ITS | Encounter Summary ---
:1945 Author Organization [facility] Address [address] [place] [address] Care Team Providers Name Role Phone Chastity Davidson M.D. Primary Care Provider Unavailable Encounter Details Date Type Department Care Team Description 12/08/2018 Hospital Encounter Department of Gabriela Hernandez [facility] Total Knee Radiology, [facility], in [address] [id number] Social History Tobacco Use Types Packs/Day Years Used Date Smoking Tobacco: Former Cigarettes 0.3 35 Smokeless Tobacco: Never Comments: quit about 10 yrs ago Alcohol Use Standard Drinks/Week Comments Yes 3 (1 standard drink = 0.6 oz pure 2x or so per month 1 drink each alcohol) time Sex Assigned at Date Recorded Female 10/12/2017 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 As needed CALCIUM CARBONATE/VITAMIN Take by mouth 0 010 D3 (CALCIUM WITH VITAMIN D daily. ORAL) multivitamin capsule Take by mouth 0 11/13/2009 daily. lisinopril Take 1 tablet (5 mg 90 tablet 1 11/16/201804/20 (PRINIVIL,ZESTRIL) 5 mg total) by mouth tablet daily. pantoprazole (PROTONIX) 20 Take 1 tablet (20 90 tablet 3 12/02/2019 mg EC tablet mg total) by mouth daily. documented as of this encounter Plan of Treatment Not on filedocumented as of this encounter Procedures Procedure Name Priority Date/Time Associated Comments Diagnosis DX KNEE RIGHT RAD - Routine 12/08/2018 2:09 Aftercare Total Results for this STANDING 1-2 (most inpatients PM SERVICE ORDER DISPATCHER CHIEF Knee Arthroplasty proced ure are in VIEWS and all the results outpatients) section. documented in this encounter Results DX Knee Right Standing 1-2 Views (12/08/2018 2:09 PM SERVICE ORDER DISPATCHER CHIEF) Anatomical Region Laterality Modality Lower Extremity, Knee, Musculoskeletal RST LOS, Right Digital Radiography Musculoskeletal ARZ LOS, Muskuloskeletal FLA LOS Specimen (Source) Anatomical Collection Method Collection Time Re ceived Time Location / / Volume Laterality 12/08/2018 4:02 PM SERVICE ORDER DISPATCHER CHIEF Impressions 12/08/2018 4:04 PM SERVICE ORDER DISPATCHER CHIEF IMPRESSION: Stable postoperative finding s status post right knee arthroplasty. Narrative 12/08/2018 4:04 PM SERVICE ORDER DISPATCHER CHIEF EXAM: DX KNEE RIGHT STANDING 1-2 VIEWS COMPARISON: 09/08/2018. FINDINGS: Postoperative findings status post bilateral knee arthroplasty. Small right suprapatellar joint effusion simil ar to previous. No acute fracture or destructive osseous abnormality. Procedure Note Len Hillman M.D. - 12/08/2018For matting of this note might be different from the original. EXAM: DX KNEE RIGHT STANDING 1-2 VIEWS COMPARISON: 09/08/2018. FINDINGS: Postoperative findings status post bilateral knee arthroplasty. Small right suprapatellar joint effusion simil ar to previous. No acute fracture or destructive osseous abnormality. IMPRESSION: Stable postoperative finding s status post right knee arthroplasty. Gabriela Hernandez P.A[facility] PROC EDURES documented in this encounter Visit Diagnoses Diagnosis Aftercare Total Knee Arthroplasty documented in this encounter Care Teams Acquisition Manager Relationship Specialty Start Date End Date Chastity Davidson M.D. PCP - General 03/19/17 01/11/20 documented as of this encounter
--- OUTSIDE RECORDS SUMMARY | 2022-08-31 10:05 | XMS_ITS | Clinical Summary ---
:1945 Author Organization [facility] [place] [address] Care Team Providers Name Role Phone Anderson Castillo MD Primary Care Provider [phone] Allergies Not on File Medications Not on file Active Problems Not on file Family History Medical History Relation Name Comments Cancer-breast Mother Relation Name Status Comments Mother Social History Tobacco Use Types Packs/Day Years Used Date Never Assessed Sex Assigned at Date Recorded Not on file Obstetrics History Plan of Treatment Health Maintenance Due Date Last Done Comments Tdap 1956 Depression screening for age 12+ 1957 BMI (ht and wt on same day) for age 18+ 1963 Hepatitis C screening for age 18-79 1963 Tetanus booster 1965 Zoster (shingles) series for age 50+ (1 of 1995 2) DEXA/DXA scan for age 65+ 2010 Pneumococcal series for age 65+ (1 - PCV) 2010 COVID-19 vaccine series (3 - Booster for 12/30/202108/01/2 021, 12/16/2020 Moderna series) Influenza for age 65+ 06/05/2022 Results Not on filefrom Last 3 Months Insurance Payer Benefit Plan / Subscriber ID Effective Dates Phone Addre ss Type Group MEDICARE PART A MEDICARE PART A [id number] 2010-Present ATTN: CLAIMS - HB USE ONLY HB ONLY [address] [place] [address] [employer] [id number] 2021-Present [address] [employer] [place] [employer] [place] [phone] Care Teams Dog Bather Relationship Specialty Start Date End Date Anderson Castillo MD PCP - General Family Practice 11/07/211999 [place] [address]
--- OUTSIDE RECORDS SUMMARY | 2022-08-31 10:05 | XMS_ITS | Encounter Summary ---
:1945 Author Organization [facility] Address [address] [place] [address] Care Team Providers Name Role Phone Zandra Valera APRN, C.N.P., M.S.N. Primary Care Provider Reason for Visit Reason Comments Numbness R arm numbness since she wok e. Tingling in 4th and 5th fingers. Hx of htn. LKW 0500 when she got up to use bathroom. Feels funny in her chest, comes and goes. Negative FAST exam . Reports she has arthritis all over. Encounter Details Date Type Department Care Team Description 03/31/2020 Emergency [facility] Nica Wall Pares thesias Hand (Primary Dx); [facility] Marni ARMIJO, Hypertension Essential Primary Emergency Department M.S.N. 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 - 03/31/2020 3:55 PM CDT Make sure to see your Primary Provider this week regarding your blood pressure. AttachmentsThe following attachments cannot be sent through Care Everywhere. Preventing Hypertension (Guinean)How to Take Your Blood Pressure (Guinean) Paresthesia Zldi-re-Ipdl (Guinean)documented in this encounter Medications at Time of Discharge Medication Sig Dispensed Refills Start Date End Date acetaminophen (for_TYLENOL Take 1,300 mg by 0 8 HR) 650 mg ER tablet mouth 2 (two) times a day. As needed CALCIUM CARBONATE/VITAMIN Take by mouth daily. 0 11/13/2009 D3 (CALCIUM WITH VITAMIN D ORAL) lisinopriL Take 1 tablet (10 mg 90 tablet 3 12/02/2019 (PRINIVIL,ZESTRIL) 10 mg total) by mouth tablet daily. multivitamin capsule Take by mouth daily. 0 11/13 pantoprazole (PROTONIX) 20 Take 1 tablet (20 mg 90 tablet 3 12/02/2019 mg EC tablet total) by mouth daily. amoxicillin (AMOXIL) 500 Take four (4) 4 capsule 0 12/23/19 19 mg capsule capsules - one (1) to two (2) hours prior to dental appointment. documented as of this encounter ED Notes Nica Wall APRN, C.N.Gisele., M.S.N. - 03/31/2020 1:00 PM CDT SUBJECTIVE: CHIEF COMPLAINT/REASON FOR VISIT: Numbness (R arm numbness since she woke. Tingling in 4th and 5th fingers. Hx of htn. LKW 0500 when she got up to use bathroom. Feels funny in her chest, comes and goes. Negative FAST exam. Reports she has arthritis all over.) HISTORY OF PRESENT ILLNESS: 74 yr old female presents with 4th and 5th fingers on right hand feeling tingling and chest feels different. She will intermittently have the right 4th and 5th fingers go to sleep on feel numb duringthe night and will resolve when she rolls over. The feeling she has today is the same as before however the tingling in fingers has not resolved. Her chest feels funny however she denies any chest pain, shortness of breath, nausea, sweatiness, or weakness. History provided by: Patient Chest Pain Pain location: Unable to specify Pain quality comment: No pain just a different feeling. Pain severity: No pain Onset quality: Sudden Duration: 5 hours Timing: Constant Progression: Unchanged Chronicity: New Relieved by: None tried Worsened by: Nothing Ineffective treatments: None tried REVIEW OF SYSTEMS: Cardiovascular: Positive for chest pain. All other systems reviewed and are negative. ALLERGIES/MEDICATIONS: Reviewed in medical record PAST MEDICAL/FAMILY/SOCIAL HISTORY: Medical History: Past Medical History: Diagnosis Date ??? Anemia ??? Arthritis Inflammatory (HCC) ??? Mendez's Esophagus ??? Gastroesophageal Reflux Disease NOS ??? Hemorrhage Gastrointestinal ??? Hypertension NOS ??? Primary Osteoarthritis Knee Left ??? Primary Osteoarthritis Knee Right Patient Active Problem List Diagnosis Date Noted ??? Chronic Idiopathic Constipation 06/02/2018 ??? Gastroesophageal Reflux Disease 06/01/2018 ??? Hypertension Essential Primary 06/01/2018 ??? Follow Up Knee Replacement Status Post 05/10/2018 ??? Aftercare Total Knee Arthroplasty ??? Anemia 11/06/2017 ??? Hemorrhage Gastrointestinal 10/22/2017 ??? Arthropathy 11/14/2009 Surgical History: Past Surgical History: Procedure Laterality Date ??? ARTHROPLASTY REPLACEMENT TOTAL KNEE Left 03/30/2018 Procedure: ARTHROPLASTY REPLACEMENT TOTAL KNEE; Surgeon: Fausto Hoffman D.O.; Location: [facility] ??? ARTHROPLASTY REPLACEMENT TOTAL KNEE Right 06/01/2018 Procedure: ARTHROPLASTY REPLACEMENT TOTAL KNEE; Surgeon: Fausto Hoffman D.O.; Location: [facility] ??? COLONOSCOPY N/A 02/01/2018 Procedure: COLONOSCOPY; Surgeon: Jazmyne Weaver M.D.; Location: [facility] ??? CYST REMOVAL ??? ESOPHAGOGASTRODUODENOSCOPY N/A 02/01/2018 Procedure: ESOPHAGOGASTRODUODENOSCOPY; Surgeon: Jazmyne Weaver M.D.; Location: [facility] ??? TONSILLECTOMY AND ADENOIDECTOMY N/A 1950 Tonsillectomy and adenoidectomy Family History: Reviewed in chart Social History: Social History Socioeconomic History ??? Marital status: Spouse name: None ??? Number of children: None ??? Years of education: None ??? Highest education level: None Occupational History ??? None Social Needs ??? Financial resource strain: None ??? Food insecurity Worry: None Inability: None ??? Transportation needs Medical: None Non-medical: None Tobacco Use ??? Smoking status: Former Smoker Packs/day: 0.25 Years: 35.00 Pack years: 8.75 Types: Cigarettes ??? Smokeless tobacco: Never Used ??? Tobacco comment: quit about 10 yrs ago Substance and Sexual Activity ??? Alcohol use: Yes Alcohol/week: 3.0 standard drinks Types: 3 Glasses of wine per week Comment: 2x or so per month 1 drink each time ??? Drug use: No ??? Sexual activity: Yes Partners: Male control/protection: Post-menopausal Lifestyle ??? Physical activity Days per week: None Minutes per session: None ??? Stress: None Relationships ??? Social connections Talks on phone: None Gets together: None Attends mormonism service: None Active member of club or organization: None Attends meetings of clubs or organizations: None Relationship status: None ??? Intimate partner violence Fear of current or ex partner: None Emotionally abused: None Physically abused: None Forced sexual activity: None Other Topics Concern ??? None Social History Narrative ??? None Social History Substance and Sexual Activity Alcohol Use Yes ??? Alcohol/week: 3.0 standard drinks ??? Types: 3 Glasses of wine per week Comment: 2x or so per month 1 drink each time Social History Substance and Sexual Activity Drug Use No OBJECTIVE: INITIAL VITAL SIGNS: Initial Vitals Temperature Pulse Rate Heart Rate Resp Rate Blood Pressure SpO2 03/31/20 1256 03/31/20 1256 -- 03/31/20 1256 03/31/20 1256 03/31/20 1256 36.9 ??C 86 20 157/89 99 % Pain Score 03/31/20 1257 0 - No pain PHYSICAL EXAMINATION: Constitutional: Nursing note and vitals reviewed. She is active and cooperative. Non-toxic appearance. She does not have a sickly appearance. She does not appear ill. No distress. HENT: Head: Normocephalic and atraumatic. No signs of injury. Mouth/Throat: Oropharynx is clear and moist. Mucous membranes are moist. Eyes: Conjunctivae and EOM are normal. Pupils are equal, round, and reactive to light. Extraocular Movements: EOM normal. Neck: Normal range of motion. Neck supple. Cardiovascular: Normal rate, regular rhythm and normal heart sounds. Pulses are strong and palpable. No murmur heard.Capillary refill: takes less than 3 seconds, Edema: no edema noted Pulmonary/Chest: Effort normal and breath sounds normal. There is normal air entry. Musculoskeletal: Normal range of motion. Neurological: She is alert and oriented to person, place, and time. No cranial nerve deficit (grossly intact II-XII). Skin: Skin is warm, dry and intact. Psychiatric: She has a normal mood and affect. Her behavior is normal. Judgment and thought content normal. LABS: Labs Reviewed COMPREHENSIVE METABOLIC PANEL, S/P - Abnormal Result Value Potassium, P 4.5 Sodium, P 141 Chloride, P 105 Bicarbonate, P 26 Anion Gap, P 10 BUN, P 14 Creatinine, P 1.02 eGFR Black 63 eGFR Non-Black 54 (*) Calcium, Total, P 9.6 Glucose, P 110 Protein, Total, P 7.7 Albumin, P 4.1 Aspartate Aminotransferase (AST), P 29 Alkaline Phosphatase, P 84 Alanine Aminotransferase (ALT), P 17 Bilirubin, Total, P 0.6 CBC WITH DIFFERENTIAL, B Hemoglobin 12.7 Hematocrit 38.9 Erythrocytes 4.06 MCV 95.8 RBC Distrib Width 13.4 Platelet Count 306 Leukocytes 7.2 Neutrophils 4.55 Lymphocytes 1.63 Monocytes 0.77 Eosinophils 0.17 Basophils 0.04 TROPONIN T, BASELINE, 5TH GEN, P Troponin T, Baseline, 5th gen 9 TROPONIN T, 2H/6H, 5TH GEN, P Troponin T, 2 hr, 5th gen 9 2H Delta 0 2H Delta Interp Not Changing Troponin T, 6 hr, 5th gen CANCELED Narrative: Specimen Information: Specimen ID: [id number] Specimen Type: Blood Specimen Collection Start Date: 03/31/2020 3:09 PM Specimen Received Date: 03/31/2020 3:14 PM Specimen ID: [id number] Specimen Type: Blood ECG: Ecg 12 Lead Result Date: 03/31/2020 Normal sinus rhythm Normal ECG When compared with ECG of 08-MAR-2018 15:18, No significant change was found Reviewed by CHEYANNE Page RADIOLOGY: DX Chest Portable 1 View Final Result No acute abnormality. ED COURSE: ED Course as of Mar 31 1613 Sat Mar 31, 2020 1352 Discussed with patient results. Both troponins are 9 with a negative delta. EKG is normal. Denies any chest pain. No previous history. Patient is stable to follow up outpatient with her primary provider in 1-2 days to discuss outpatient cardiac evaluation. She does have hypertension that is asymptomatic and she needs follow up with primary provider in 1-2 days. Final Diagnoses: as of Mar 31 1613 Paresthesias Hand Hypertension Essential Primary INTERVENTIONS: Medications sodium chloride 0.9 % injection 2-10 mL (has no administration in time range) aspirin chewable tablet 324 mg (324 mg oral Given 03/31/20 1313) ASSESSMENT AND PLAN: Impression and Plan Doubt cva or tia in regards to the tingling in the right 4th and 5th fingers. Patient has had the same sensation previously at night and it usually resolves on its own when she rolls over. Today the sensation hasn't gone away. Denies any weakness in the affected arm/hand. Denies any chest pain or associated symptoms. Does have a different sensation in her entire chest that she has intermittently. Labs have a negative troponin. ekg normal. Although patient does have hypertensin today she states at home it is much better. Needs to follow up with her primary provider this week to discuss her hypertension and outpatient cardiology evaluation. The intermittent tingling in her fingers seems to be rel ated to her sleeping position and she needs to try and adjust how she is sleeping. Return for chest pain, shortness of breath, or new concerns. Differential Diagnoses Cardiac, cva, neuropathy, anxiety I personally reviewed the lab result(s) and my interpretation is documented in ED Course and normal. I personally reviewed the radiology image(s) and reviewed the radiology report(s). The Radiology exam interpretation(s) is/are documented in ED Course and normal. I independently reviewed the ECG tracing and my interpretation is documented in ED Course and normal. DIAGNOSIS: Final diagnoses: [R20.2] Paresthesias Hand [I10] Hypertension Essential Primary ED DISCHARGE MEDS: ED Prescriptions None DISPOSITION: Home or Self Fpc or Self Care DISCHARGE VITAL SIGNS: Vitals: 03/31/20 1600 BP: (!) 160/101 Pulse: Resp: Temp: SpO2: FOLLOW UP: primary provider Nica Wall APRN [facility] Emergency Medicine Nica Wall APRN, C.N.P., M.S.N. 03/31/20 1620 documented in this encounter Plan of Treatment Not on filedocumented as of this encounter Procedures Procedure Name Priority Date/Time Associated Comments Diagnosis TROPONIN T, 2H/6H, Timed 03/31/2020 3:09 Result s for 5TH GEN, P PM CDT this procedure are in the results section. TROPONIN T, STAT 03/31/2020 1:17 Results for BASELINE, 5TH GEN, P PM CDT this pr ocedure are in the results section. CBC WITH STAT 03/31/2020 1:17 Results for DIFFERENTIAL, B PM CDT this procedu re are in the results section. COMPREHENSIVE STAT 03/31/2020 1:17 Results for METABOLIC PANEL, S/P PM CDT this pr ocedure are in the results section. DX CHEST PORTABLE 1 RAD - Semiurgent 03/31/2020 1:15 R esults for VIEW (Fast; most ED PM CDT this procedur e patients; some are in the inpatients) results section. ECG STAT 03/31/2020 1:10 Results for PM CDT this procedure are in the results section. documented in this encounter Results Troponin T, 2H/6H, 5th Gen (03/31/2020 3:09 PM CDT) athologist Signature Troponin T, 2 9 <=10 ng/L 03/31/2020 [facility] hr, 5th gen 3:32 PM CDT Comment: Biotin has been identified by the lore diaz as a potential interfering substance. ??Higher concentr ations of biotin may be found in multivitamins, hair/nail supple ments, and workout supplements. ??If the result does not ma [facility] clinical observations, repeat testing after patient refrains fr om the use of supplements for at least 12 hours. 2H Delta 0 ng/L 03/31/2020 3:32 PM CDT MK[facility] 2H Delta Interp Not Changing 03/31/2020 3:32 PM CD T [facility] Troponin T, 6 hr, 5th gen CANCELED ng/L 03/31/2020 3:3 2 PM CDT MK[facility] Comment: Result canceled by the ray castillo Specimen Anatomical Collection Method Collection Time Receive d Time (Source) Location / / Volume Laterality Blood (Blood, 03/31/2020 3:09 PM 03/31/20 20 3:14 Venous) CDT PM CDT Narrative [facility] - 03/31/2020 3:32 PM CDT Specimen Information: Specimen ID: [id number] Specimen Type: Blood Specimen Collection Start Date: 03/31/20 ??3:09 PM Specimen Received Date: 03/31/2020 ??3:1 4 PM Specimen ID: [id number] Specimen Type: Blood Nica Wall APRN C.N.P., M.S.N. LAB BLOOD TROPONIN Performing Organization Address City/State/ZIP Code Phon e Number [facility]- [address] [place] [id number] [facility] [place] [address] System in [facility] [address] [place] [address] Troponin T, Baseline, 5th gen (03/31/2020 1:17 PM CDT) athologist Signature Troponin T, 9 <=10 ng/L 03/31/2020 [facility] Baseline, 5th 1:49 PM CDT gen Comment: Biotin has been identified by the lore diaz as a potential interfering substance. ??Higher concentr ations of biotin may be found in multivitamins, hair/nail supple ments, and workout supplements. ??If the result does not ma [facility] clinical observations, repeat testing after patient refrains fr om the use of supplements for at least 12 hours. Specimen Anatomical Collection Method Collection Time Receive d Time (Source) Location / / Volume Laterality Blood (Blood, 03/31/2020 1:17 PM 03/31/20 20 1:24 Venous) CDT PM CDT Michael Araujo APRNNSidney., M.S.N. LAB BLOOD TROPONIN Performing Organization Address City/State/ZIP Code Phon e Number [facility]- [address] [place] [phone] [place] [address] [place] [address] [address] (ABNORMAL) Comprehensive Metabolic Panel (03/31/2020 1:17 PM CDT) P athologist Signature Potassium, P 4.5 3.6 - 5.2 03/31/2020 [facility] mmol/L 1:48 PM CDT Sodium, P 141 135 - 145 03/31/2020 [facility] mmol/L 1:48 PM CDT Chloride, P 105 98 - 107 03/31/2020 [facility] mmol/L 1:48 PM CDT Bicarbonate, P 26 22 - 29 03/31/2020 [facility] mmol/L 1:48 PM CDT Anion Gap, P 10 7 - 15 03/31/2020 [facility] 1:48 PM CDT BUN (Blood Urea 14 6 - 21 03/31/2020 [facility] Nitrogen), P mg/dL 1:48 PM CDT Creatinine 1.02 0.59 - 03/31/2020 [facility] 1.04 mg/dL 1:48 PM CDT eGFR-Black/Afric 63 >=60 03/31/2020 [facility] an Macedonian mL/min/BSA 1:48 PM CDT Comment: ----ADDITIONAL INFORMATION---- Estimated GFR calculated using the 2009 CKD_EPI creatinine equation. eGFR Non-Black/ 54 (L) >=60 mL/min/BSA 03/31/2020 1:48 PM CDT [facility] Macedonian Comment: ----ADDITIONAL INFORMATION---- Estimated GFR calculated using the 2009 CKD_EPI creatinine equation. Calcium, Total, P 9.6 8.8 - 10.2 mg/dL 03/31/2020 1:48 PM CDT [facility] Glucose, P 110 70 - 140 mg/dL 03/31/2020 1:48 PM CDT M KTO Protein, Total, P 7.7 6.3 - 7.9 g/dL 03/31/2020 1:48 P M CDT MK[facility] Albumin, P 4.1 3.5 - 5.0 g/dL 03/31/2020 1:48 PM CDT M KTO Aspartate Aminotransferase 29 8 - 43 U/L 03/31/2020 1 :48 PM CDT [facility] (AST), P Alkaline Phosphatase, P 84 35 - 104 U/L 03/31/2020 1: 48 PM CDT [facility] Alanine Aminotransferase (ALT), 17 7 - 45 U/L 020 1:48 PM CDT MKTO P Bilirubin, Total, P 0.6 <=1.2 mg/dL 03/31/2020 1:48 PM CDT MKTO Specimen Anatomical Collection Method Collection Time Receive d Time (Source) Location / / Volume Laterality Blood (Blood, 03/31/2020 1:17 PM 03/31/20 20 1:24 Venous) CDT PM CDT Mahendra Araujo APRN.N.P., M.S.N. LAB BLOOD ADD-ON Performing Organization Address City/State/ZIP Code Phon e Number [facility]- [address] [place] [id number] [place] [address] CBC with Differential, Blood (03/31/2020 1:17 PM CDT) P athologist Signature Hemoglobin 12.7 11.6 - 03/31/2020 [facility] 15.0 g/dL 1:27 PM CDT Hematocrit 38.9 35.5 - 03/31/2020 [facility] 44.9 % 1:27 PM CDT Erythrocytes 4.06 3.92 - 03/31/2020 [facility] 5.13 1:27 PM CDT x10(12)/L MCV 95.8 78.2 - 03/31/2020 [facility] 97.9 fL 1:27 PM CDT RBC Distrib Width 13.4 12.2 - 03/31/2020 [facility] 16.1 % 1:27 PM CDT Platelet Count 306 157 - 371 03/31/2020 [facility] x10(9)/L 1:27 PM CDT Leukocytes 7.2 3.4 - 9.6 03/31/2020 [facility] x10(9)/L 1:27 PM CDT Neutrophils 4.55 1.56 - 03/31/2020 [facility] 6.45 1:27 PM CDT x10(9)/L Lymphocytes 1.63 0.95 - 03/31/2020 [facility] 3.07 1:27 PM CDT x10(9)/L Monocytes 0.77 0.26 - 03/31/2020 [facility] 0.81 1:27 PM CDT x10(9)/L Eosinophils 0.17 0.03 - 03/31/2020 [facility] 0.48 1:27 PM CDT x10(9)/L Basophils 0.04 0.01 - 03/31/2020 [facility] 0.08 1:27 PM CDT x10(9)/L Specimen Anatomical Collection Method Collection Time Receive d Time (Source) Location / / Volume Laterality Blood (Blood, 03/31/2020 1:17 PM 03/31/20 20 1:24 Venous) CDT PM CDT Mahendra Araujo APRN.N.P., M.S.N. LAB BLOOD ADD-ON Performing Organization Address City/State/ZIP Code Phon e Number [facility]- [address] [place] [id number] [place] [address] DX Chest Portable 1 View (03/31/2020 1:15 PM CDT) Anatomical Region Laterality Modality Chest, Thoracic RST LOS, Thoracic ARZ LOS, Thoracic N/A Digital Radiography FLA LOS Specimen (Source) Anatomical Collection Method Collection Time Re ceived Time Location / / Volume Laterality 03/31/2020 1:44 PM CDT Impressions 03/31/2020 1:46 PM CDT No acute abnormality. Narrative 03/31/2020 1:46 PM CDT EXAM: DX CHEST PORTABLE 1 VIEW COMPARISON: Chest radiograph from 016 FINDINGS: The lungs and costophrenic sul ci are clear. No pneumothorax. The cardiomediastinal contours are within no rmal limits. No acute osseous abnormality. Procedure Note Shiraz Lyons M.D. - 03/31/2020Formattin g of this note might be different from the original. EXAM: DX CHEST PORTABLE 1 VIEW COMPARISON: Chest radiograph from 016 FINDINGS: The lungs and costophrenic sul ci are clear. No pneumothorax. The cardiomediastinal contours are within no rmal limits. No acute osseous abnormality. IMPRESSION: No acute abnormality. Nica Wall APRN, C.N.P., M.S.N. IMG DIAGNOSTIC [facility] GING PROCEDURES ECG 12 Lead (03/31/2020 1:10 PM CDT) P athologist Signature Ventricular Rate 77 BPM MUSE ECG/Min AK Interval 142 ms MUSE QRSD Interval 94 ms MUSE QT Interval 384 ms MUSE QTC Interval 434 ms MUSE P [place] 50 degrees MUSE R [place] -4 degrees MUSE T Wave [place] 27 degrees MUSE Specimen Anatomical Collection Method Collection Time Receive d Time (Source) Location / / Volume Laterality 03/31/2020 1:10 PM 0 1:15 CDT PM CDT Impressions MUSE - 03/31/2020 1:15 PM CDT Normal sinus rhythm Normal ECG When compared with ECG of 08-MAR-2018 15 :18, No significant change was found Reviewed by CHEYANNE Page Narrative This result has an attachment that is no t available. Procedure Note Khadar Burnett M.D., Ph.D. - 03/31/2020Fo rmatting of this note might be different from the original. IMPRESSION: Normal sinus rhythm Normal ECG When compared with ECG of 08-MAR-2018 15 :18, No significant change was found Reviewed by CHEYANNE Page Nica Wall APRN, C.N.P., M.S.N. ECG ORDERABLES Performing Organization Address City/State/ZIP Code Phon e Number MUSE MUSE NA documented in this encounter Visit Diagnoses Diagnosis Paresthesias Hand - Primary Hypertension Essential Primary documented in this encounter Administered Medications Inactive Administered Medications - up to 3 most recent administrations Medication Order MAR Action Action Date Dose Rate Site aspirin chewable tablet 324 mg Given 03/31/2020 1:13 PM CDT 324 mg 324 mg, oral, Once, On 03/31/20 at 1307, For 1 dose sodium chloride 0.9 % injection 2-10 mL 2-10 mL, intravenous, As needed, line care, Starting o n 03/31/20 at 1305 documented in this encounter Active and Recently Administered Medications Times are shown in CDT. Scheduled Medication Order 03/29/2020 03/30/2020 03/31/2020 aspirin chewable tablet 324 mg (COMPLETED) 1313 (Given - Provider: Samanta Bernal R.N.) 324 mg, oral, Once, On 03/31/20 at 1307, For 1 dose PRN Medication Order 03/29/2020 03/30/2020 03/31/2020 sodium chloride 0.9 % injection 2-10 mL(Linked Group 1) 2-10 mL, intravenous, As needed, line care, Starting on Sat 03/31 at 1305 Linked Groups Order Group 1: Place peripheral IV: No upper extremity site restrictions (COMPLETED) Upper extremity site restriction: No upp er extremity site restrictions
Quantity of PIVs requested: One
STAT, Once, 03/31/20 at 1306, For 1 occurrence And sodium chloride 0.9 % injection 2-10 mLJump to med 2-10 mL, intravenous, As needed, line ca re, Starting on 03/31/20 at 1305 documented in this encounter Care Teams Track Service Worker Relationship Specialty Start Date End Date Zandra Valera APRN, C.N.P., M.S.N. PCP - General 01/12/20 12/25/[address] [place] [address] [place] [phone] documented as of this encounter
--- OUTSIDE RECORDS SUMMARY | 2022-08-31 10:05 | XMS_ITS | Encounter Summary ---
:1945 Author Organization [facility] Address [address] [place] [address] Care Team Providers Name Role Phone Chastity Davidson M.D. Primary Care Provider Unavailable Reason for Visit Reason Comments Annual Exam no concerns Appointment Request (Routine) - Closed Specialty Diagnoses / Procedures Referred By Contact Refer red To Contact Family Medicine Referral ID Status Reason Start Date Expiration Date Visits Requ ested Visits Authorized [id number] Closed 11/28/2019 11/27/2020 1 1 Encounter Details Date Type Department Care Team Description 12/02/2019 Office Visit Department of Family Agustín Davidson Essential Primary (Primary Dx); Medicine in [place] Gastroesophage al Reflux Disease; [facility] Screening Test Laboratory; [address] [place] [address]; [place], [place] [phone] Social History Tobacco Use Types Packs/Day Years Used Date Smoking Tobacco: Former Cigarettes 0.3 35 Smokeless Tobacco: Never Comments: quit about 10 yrs ago Alcohol Use Standard Drinks/Week Comments Yes 3 (1 standard drink = 0.6 oz pure 2x or so per month 1 drink each alcohol) time Sex Assigned at Date Recorded Female 10/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 as of this encounter Last Filed Vital Signs Vital Sign Reading Time Taken Comments Blood Pressure 142/94 12/02/2019 9:24 AM VETERINARY SURGERY TECHNICIAN Pulse 72 12/02/2019 9:19 AM VETERINARY SURGERY TECHNICIAN Temperature 36.2 ??C (97.2 ??F) 12/02/2019 9:19 AM VETERINARY SURGERY TECHNICIAN Respiratory Rate 16 12/02/2019 9:19 AM VETERINARY SURGERY TECHNICIAN Oxygen Saturation - - Inhaled Oxygen Concentration - - Weight 86.2 kg (190 lb 0.6 oz) 12/02/2019 9:19 AM VETERINARY SURGERY TECHNICIAN Height 157 cm (5' 1.81) 12/02/2019 9:19 AM VETERINARY SURGERY TECHNICIAN Body Mass Index 34.97 12/02/2019 9:19 AM VETERINARY SURGERY TECHNICIAN documented in this encounter Progress Notes Chastity Davidson M.D. - 12/02/2019 9:30 AM CST SUBJECTIVE CHIEF COMPLAINT/REASON FOR VISIT Annual Exam (no concerns) HISTORY OF PRESENT ILLNESS Mary Jane Rockwell is a 74 y.o. female who presents for med check and refills. She has some chronicmedical issues but nothing that really is bothering her right now. She has chronic back pain but that does not bother her unless she standing too long or bending over. She has had some vertigo and at times she can lose her balance. She does have elevation in her blood pressure today and evidently we decreased her to 5 mg lisinopril because she was going low. We decided to increase that up again. She has a history of MRSA that was noted when she had her 2nd total knee arthroplasty so they thought shegot it when she had her 1st 1 and was in the hospital. She also had anemia with both of her knee operations. REVIEW OF SYSTEMS Musculoskeletal: Positive for back pain. Mild low back pain when active and standing at times Neurological: Positive for loss of balance or tendency to fall easily. Vertigo The following systems were negative: Constitutional, Skin, Eyes, ENT, CV, Respiratory, GI, , Hematologic, Psych MEDICAL HISTORY Patient Active Problem List Diagnosis ??? Arthropathy ??? Hemorrhage Gastrointestinal ??? Anemia ??? Aftercare Total Knee Arthroplasty ??? Follow Up Knee Replacement Status Post ??? Gastroesophageal Reflux Disease ??? Hypertension Essential Primary ??? Chronic Idiopathic Constipation SURGICAL HISTORY Past Surgical History: Procedure Laterality Date ??? ARTHROPLASTY REPLACEMENT TOTAL KNEE Left 03/30/2018 Procedure: ARTHROPLASTY REPLACEMENT TOTAL KNEE; Surgeon: Fausto Hoffman D.O.; Location: [facility] ??? ARTHROPLASTY REPLACEMENT TOTAL KNEE Right 06/01/2018 Procedure: ARTHROPLASTY REPLACEMENT TOTAL KNEE; Surgeon: Fausto Hoffman D.O.; Location: [facility] ??? COLONOSCOPY N/A 02/01/2018 Procedure: COLONOSCOPY; Surgeon: Jazmyne Weaver M.D.; Location: [facility] GI LAB ??? CYST REMOVAL ??? ESOPHAGOGASTRODUODENOSCOPY N/A 02/01/2018 Procedure: ESOPHAGOGASTRODUODENOSCOPY; Surgeon: Jazmyne Weaver M.D.; Location: [facility] GI LAB ??? TONSILLECTOMY AND ADENOIDECTOMY N/A 1950 Tonsillectomy and adenoidectomy FAMILY HISTORY Family History Problem Relation Age of Onset ??? Breast cancer Mother ??? Prostate cancer Grandfather ??? Lung cancer Grandfather ??? Parkinsons disease Aunt ??? Dementia Grandmother ??? Colon cancer Father ??? Hypertension Son ??? Anxiety State, Unspecified Son ??? Alcohol consumption Son ??? Hypertension Son SOCIAL HISTORY Social History Tobacco Use ??? Smoking status: Former Smoker Packs/day: 0.25 Years: 35.00 Pack years: 8.75 Types: Cigarettes ??? Smokeless tobacco: Never Used ??? Tobacco comment: quit about 10 yrs ago Substance Use Topics ??? Alcohol use: Yes Alcohol/week: 3.0 standard drinks Types: 3 Glasses of wine per week Comment: 2x or so per month 1 drink each time ??? Drug use: No ALLERGIES/CONTRAINDICATIONS Allergies Allergen Reactions ??? Gentamicin Other (see comments) Made my eyes worse ??? Neosporin (Fut-Sqf-Kiymn) [Yircgdov-Imfwypcemi-Jyqrcisut] Other (see comments) Triple antibotic ??? Tobramycin Other (see comments) Made my eyes worse CURRENT MEDICATIONS Current Outpatient Medications Medication Sig Dispense Refill ??? acetaminophen (for_TYLENOL 8 HR) 650 mg ER tablet Take 1,300 mg by mouth 2 (two) times a day. Asneeded ??? CALCIUM CARBONATE/VITAMIN D3 (CALCIUM WITH VITAMIN D ORAL) Take by mouth daily. ??? lisinopriL (PRINIVIL,ZESTRIL) 5 mg tablet Take 1 tablet (5 mg total) by mouth daily. 90 tablet 1 ??? multivitamin capsule Take by mouth daily. ??? pantoprazole (PROTONIX) 20 mg EC tablet Take 1 tablet (20 mg total) by mouth daily. 90 tablet 3 ??? amoxicillin (AMOXIL) 500 mg capsule Take four (4) capsules - one (1) to two (2) hours prior to dental appointment. (Patient not taking: Reported on 12/02/2019 ) 4 capsule 0 OBJECTIVE VITAL SIGNS BP (!) 142/94 Pulse 72 Temp 36.2 ??C (Temporal) Resp 16 Ht 157 cm Wt 86.2 kg BMI 34.97 kg/m?? PHYSICAL EXAMINATION General: Alert, in no apparent distress, nontoxic appearing. Mood and affect were appropriate to thesituation. HEENT: Oropharynx was clear with slight erythema, but no exudate or tonsillar enlargement. Moist mucous membranes. Tympanic membranes pearly mathews bilaterally. Neck: Trachea was midline. No lymphadenopathy. Positive thyromegaly. No carotid bruits. Heart: S1, S2 with no significant murmurs, rubs or gallops. Regular rate and rhythm. Lungs: Breath sounds were clear throughout bilaterally. Respirations were regular, nonlabored. Abdomen: Soft, nontender, nondistended with bowel sounds active x 4 quadrants. No abdominal bruits. No rebound tenderness or guarding. No obvious masses or hernias. No organomegaly noted. Extremities: Without redness, swelling, or edema. Skin: Metzger, warm, dry and intact with no rashes noted. Neurologic: No focal deficits. Sensorimotor function was intact in the bilateral upper and lower extremities. Normal gait and posture noted. DTRs 2+/4. Strengths 5/5. ASSESSMENT / PLAN #1 Hypertension Essential Primary We are checking a basic metabolic panel and we are going to increase her lisinopril up from 5 mg to 10 mg. - Basic Metabolic Panel #2 Gastroesophageal Reflux Disease Patient with history of GERD and we refilled her pantoprazole. #3 Screening Test Laboratory For health maintenance she is getting a hepatitis C screen. - HCV Ab Scrn w/Reflex to HCV PCR, Serum #4 Anemia She has had anemia and we would like to recheck to see if she has adequate on her hemoglobin. - CBC with Differential, Blood #5 Goiter Thyroid felt big so we're checking a TSH. Other orders - pantoprazole (PROTONIX) 20 mg EC tablet; Take 1 tablet (20 mg total) by mouth daily., Starting Thu12/02/2019, Normal - lisinopriL (PRINIVIL,ZESTRIL)10 mg tablet; Take 1 tablet (10 mg total) by mouth daily., Starting Thu12/02/2019, Normal ADMINISTRATIVE BILLING: Total time spent 40 minutes, 35 minutes spent in counseling and coordination of care. RINARY SURGERY TECHNICIAN documented in this encounter Plan of Treatment Not on filedocumented as of this encounter Procedures Procedure Name Priority Date/Time Associated Diagnosis Comme nts HCV AB SCRN Routine 12/02/2019 10:05 Screening Test Results f or this W/REFLEX TO HCV AM VETERINARY SURGERY TECHNICIAN Laboratory procedure ar e in PCR, S the results section. CBC WITH Routine 12/02/2019 10:05 Anemia Results for this DIFFERENTIAL, B AM VETERINARY SURGERY TECHNICIAN procedure ar e in the results section. THYROID-STIMULATING Routine 12/02/2019 10:05 Goiter Resu lts for this HORMONE-SENSITIVE AM VETERINARY SURGERY TECHNICIAN procedure are in (S-TSH) the results section. BASIC METABOLIC Routine 12/02/2019 10:05 Hypertension Results for this PANEL, S/P AM VETERINARY SURGERY TECHNICIAN Essential Primary procedure are in the results section. documented in this encounter Results S-TSH (Thyroid-Stimulating Hormone - Sensitive) (12/02/2019 10:05 AM VETERINARY SURGERY TECHNICIAN) P athologist Signature TSH, Sensitive 3.1 0.3 - 4.2 12/02/2019 [facility] mIU/L 1:17 PM VETERINARY SURGERY TECHNICIAN Comment: Biotin has been identified by the lore diaz as a potential interfering substance. ??Higher concentr ations of biotin may be found in multivitamins, hair/nail supple ments, and workout supplements. ??If the result does not [facility] clinical observations, repeat testing after patient refrains fr om the use of supplements for at least 12 hours. Specimen Anatomical Collection Method Collection Time Receive d Time (Source) Location / / Volume Laterality Blood (Blood, 12/02/2019 10:05 12/02/2019 Venous) AM VETERINARY SURGERY TECHNICIAN 12:56 PM VETERINARY SURGERY TECHNICIAN Chastity Davidson M.D. LAB BLOOD ADD-ON Performing Organization Address City/State/ZIP Code Phon e Number [facility]- [address] [place] [phone] [facility] [place] [address] System [address] CBC with Differential, Blood (12/02/2019 10:05 AM VETERINARY SURGERY TECHNICIAN) P athologist Signature Hemoglobin 13.1 11.6 - 12/02/2019 [facility] 15.0 g/dL 12:52 PM VETERINARY SURGERY TECHNICIAN Hematocrit 40.0 35.5 - 12/02/2019 [facility] 44.9 % 12:52 PM VETERINARY SURGERY TECHNICIAN Erythrocytes 4.21 3.92 - 12/02/2019 [facility] 5.13 12:52 PM VETERINARY SURGERY TECHNICIAN x10(12)/L MCV 95.0 78.2 - 12/02/2019 [facility] 97.9 fL 12:52 PM VETERINARY SURGERY TECHNICIAN RBC Distrib Width 14.3 12.2 - 12/02/2019 [facility] 16.1 % 12:52 PM VETERINARY SURGERY TECHNICIAN Platelet Count 253 157 - 371 12/02/2019 [facility] x10(9)/L 12:52 PM VETERINARY SURGERY TECHNICIAN Leukocytes 5.5 3.4 - 9.6 12/02/2019 [facility] x10(9)/L 12:52 PM VETERINARY SURGERY TECHNICIAN Neutrophils 2.97 1.56 - 12/02/2019 [facility] 6.45 12:52 PM VETERINARY SURGERY TECHNICIAN x10(9)/L Lymphocytes 1.68 0.95 - 12/02/2019 [facility] 3.07 12:52 PM VETERINARY SURGERY TECHNICIAN x10(9)/L Monocytes 0.63 0.26 - 12/02/2019 [facility] 0.81 12:52 PM VETERINARY SURGERY TECHNICIAN x10(9)/L Eosinophils 0.19 0.03 - 12/02/2019 [facility] 0.48 12:52 PM VETERINARY SURGERY TECHNICIAN x10(9)/L Basophils 0.01 0.01 - 12/02/2019 [facility] 0.08 12:52 PM VETERINARY SURGERY TECHNICIAN x10(9)/L Specimen Anatomical Collection Method Collection Time Receive d Time (Source) Location / / Volume Laterality Blood (Blood, 12/02/2019 10:05 12/02/2019 Venous) AM VETERINARY SURGERY TECHNICIAN 12:47 PM VETERINARY SURGERY TECHNICIAN Chastity Davidson M.D. LAB BLOOD ADD-ON Performing Organization Address City/State/ZIP Code Phon e Number [facility]- [address] [place] [address], [place] [phone] [facility] [place] [place] [address] System [address] Basic Metabolic Panel (12/02/2019 10:05 AM VETERINARY SURGERY TECHNICIAN) athologist Signature Potassium, P 4.4 3.6 - 5.2 12/02/2019 [facility] mmol/L 1:28 PM VETERINARY SURGERY TECHNICIAN Sodium, P 140 135 - 145 12/02/2019 [facility] mmol/L 1:28 PM VETERINARY SURGERY TECHNICIAN Chloride, P 103 98 - 107 12/02/2019 [facility] mmol/L 1:28 PM VETERINARY SURGERY TECHNICIAN Bicarbonate, P 25 22 - 29 12/02/2019 [facility] mmol/L 1:28 PM VETERINARY SURGERY TECHNICIAN Anion Gap, P 12 7 - 15 12/02/2019 [facility] 1:28 PM VETERINARY SURGERY TECHNICIAN BUN (Blood Urea 18 6 - 21 12/02/2019 [facility] Nitrogen), P mg/dL 1:28 PM VETERINARY SURGERY TECHNICIAN Creatinine 0.72 0.59 - 12/02/2019 [facility] 1.04 mg/dL 1:28 PM VETERINARY SURGERY TECHNICIAN eGFR-Black/Afric >90 >=60 12/02/2019 [facility] an [place]ican mL/min/BSA 1:28 PM VETERINARY SURGERY TECHNICIAN Comment: ----ADDITIONAL INFORMATION---- Estimated GFR calculated using the 2009 CKD_EPI creatinine equation. eGFR Non-Black/ 83 >=60 mL/min/BSA 1:28 PM VETERINARY SURGERY TECHNICIAN [facility] Comment: ----ADDITIONAL INFORMATION---- Estimated GFR calculated using the 2009 CKD_EPI creatinine equation. Calcium, Total, P 10.0 8.8 - 10.2 mg/dL 12/02/2019 1:28 PM VETERINARY SURGERY TECHNICIAN [facility] Glucose, P 100 70 - 140 mg/dL 12/02/2019 1:28 PM VETERINARY SURGERY TECHNICIAN [facility] Specimen Anatomical Collection Method Collection Time Receive d Time (Source) Location / / Volume Laterality Blood (Blood, 12/02/2019 10:05 12/02/2019 Venous) AM VETERINARY SURGERY TECHNICIAN 12:53 PM VETERINARY SURGERY TECHNICIAN Chastity Davidson M.D. LAB BLOOD ADD-ON Performing Organization Address City/State/ZIP Code Phon e Number [facility]- [address] [place] [phone] [facility] [place] [address] [address] HCV Ab Scrn w/Reflex to HCV PCR, Serum (12/02/2019 10:05 AM VETERINARY SURGERY TECHNICIAN) athologist Signature HCV Ab Screen, Negative Negative 12/03/2019 [facility] 7:16 AM VETERINARY SURGERY TECHNICIAN Comment: Qbecqb-tg-tgkrnb ratio is <1.00 . Specimen Anatomical Collection Method Collection Time Receive d Time (Source) Location / / Volume Laterality Blood (Blood, 12/02/2019 10:05 12/03/2019 6:12 Venous) AM VETERINARY SURGERY TECHNICIAN AM VETERINARY SURGERY TECHNICIAN Chastity Davidson M.D. LAB MICROBIOLOGY - BLOOD ORD ERABLES Performing Organization Address City/State/ZIP Code Phon e Number [facility] [address] [place] [address] SUPPORT CENTER [facility] [place] [address] Laboratory Medicine and Pathology [address] [place] documented in this encounter Visit Diagnoses Diagnosis Hypertension Essential Primary - Primary Gastroesophageal Reflux Disease Screening Test Laboratory Anemia Goiter documented in this encounter Care Teams Heavy Equipment Engine Mechanic Relationship Specialty Start Date End Date Chastity Davidson M.D. PCP - General 03/19/17 01/11/20 documented as of this encounter
[2022-08-31] MEDS: FAMOTIDINE 10 MG/ML inj 20 MG IVP ×2 (10:06→21:46)
[2022-08-31] MEDS: diphenhydrAMINE 50 MG/ML inj IVP (10:06)
[2022-08-31] MEDS: dexAMETHasone 10 MG/ML inj IVP (10:06)
--- OUTSIDE RECORDS SUMMARY | 2022-08-31 10:06 | XMS_ITS | Encounter Summary ---
:1945 Author Organization [facility] Address [address] [place] [address] Care Team Providers Name Role Phone Chastity Davidson M.D. Primary Care Provider Unavailable Reason for Visit Physical Therapy (Routine) - Canceled Specialty Diagnoses / Procedures Referred By Contact Refer red To Contact Diagnoses Aftercare Total Knee Arthroplasty Gabriela Hernandez [facility] Procedures PT Ongoing treatment P.A.-C. [address] [place] [phone] Referral ID Status Reason Start Date Expiration Date Visits V isits Requested Authorized [id number] Canceled 06/04/2018 07/30/2018 99 11 Encounter Details Date Type Department Care Team Description 07/22/2018 Clinical Support Department of Physical Irena Hernandez ret, P.A.-C. Aftercare Total Knee Medicine and Selwyn Nielson, PBruno, D.P.T. 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 - 07/22/2018 9:00 AM CDT Physical Therapy Outpatient Treatment Note SUBJECTIVE Patient Name: Mary Jane Rockwell Referring Provider: Flower Villalba Rehab Diagnosis: 1. Aftercare Total Knee Arthroplasty Reason for Referral: patient is status post right TKA on 06/01/2018. Patient was discharged from hospital on 06/03/2018. Onset Date: 06/01/18 Payor: [facility] / Plan: [employer] FOR [employer] HMO / Product Type: HMO / No Data Recorded Total Visit Count: 11 Visit Count since last G-Codes: 1 Pt comments: patient reports that she tolerated last therapy session well and that posterior knee felt better after therapy. OBJECTIVE Pain: Ortho Exam TREATMENT Treatment today consisted of: Therapeutic Exercise: Warmup on NuStep 5 min to improve passive knee range of motion. Exercise - Position Seated Exercise 1: Warmup on NuStep and upright bike 5 min each for PROM and endurance. Leg press machine: BLE 60 lb x 20, RLE 60 lb x 10 x 2, heel raises 60 lb RLE x 20. Knee extension RLE 12.5 lb x 10 Standing Exercise 2: 6 in step step-up and side step x 10 Step-down and side step 4 in height x 10 2in step step-down without upper extremity support x 20 Standing Exercise 3: Green Thera-Band 40 ft x 5 sidestepping. Green Thera-Band x 40 hip abduction BLE. Green Thera-Band x 20 x 2 hip extension BLE Assessment Clinical Impression: Patient tolerated therapy session well. Patient tolerated to all exercises very well she reports muscle fatigue at end of therapy session at hamstrings buttock and quads in BLE patient continues to improve with balance and confidence performing step-ups and step-downs Patient will continue to benefit from outpatient physical therapy to work on strengthening and balance BLE right > left Clinical Decision Making: Low: no complicating factors, 1-2 eval elements, stable clinical presentation Functional Goals and Timeframes: PT Goal #1: Patient will be independent home exercise program in order to improve knee PROM and strengthening PT Goal #1 Date: 04/09/18 PT Goal #2: Patient will navigate stairs in reciprocal pattern without use of railing in order to navigate stairs at home PT Goal #2 Date: 06/11/18 PT Goal #3: Patient will ambulate without assistive device independently in order to return to priorlevel of function PT Goal #3 Date: 08/13/18 Plan Continue to work on PROM, balance and strengthening of RLE. Dropped down to 1 time a week to see howpatient responds to decrease therapy tentative discharge 08/05/2018 Treatment/Interventions: Therapeutic exercise, Manual therapy, Neuromuscular re-education Plan: Continue with current plan Selwyn Nielson P.T., D.P.T. Time Spent with Patient Therapeutic Exercise (min): 30 min Time Calculation Total Timed Units (min): 30 min Total Treatment Time (min): 30 min Functional G-code Worksheet documented in this encounter Plan of Treatment Not on filedocumented as of this encounter Visit Diagnoses Diagnosis Aftercare Total Knee Arthroplasty documented in this encounter Care Teams Account Officer Relationship Specialty Start Date End Date Chastity Davidson M.D. PCP - General 03/19/17 01/11/20 documented as of this encounter
--- OUTSIDE RECORDS SUMMARY | 2022-08-31 10:06 | XMS_ITS | Encounter Summary ---
:1945 Author Organization [facility] Address [address] [place] [address] Care Team Providers Name Role Phone Chastity Davidson M.D. Primary Care Provider Unavailable Reason for Visit Physical Therapy (Routine) - Canceled Specialty Diagnoses / Procedures Referred By Contact Refer red To Contact Diagnoses Aftercare Total Knee Arthroplasty Gabriela Hernandez [facility] Procedures PT Ongoing treatment P.A.-C. [address] [place] [address] Referral ID Status Reason Start Date Expiration Date Visits V isits Requested Authorized [id number] Canceled 06/04/2018 07/30/2018 99 11 Encounter Details Date Type Department Care Team Description 07/29/2018 Clinical Support Department of Physical Irena Hernandez ret, P.A.-C. Aftercare Total Knee Medicine and Selwyn Nielson, PBruno, D.P.T. 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 - 07/29/2018 9:00 AM CDT Physical Therapy Outpatient Treatment Note SUBJECTIVE Patient Name: Mary Jane Rockwell Referring Provider: Flower Villalba Rehab Diagnosis: 1. Aftercare Total Knee Arthroplasty Reason for Referral: patient is status post right TKA on 06/01/2018. Patient was discharged from hospital on 06/03/2018. Onset Date: 06/01/18 Payor: [facility] / Plan: [employer] HMO / Product Type: HMO / No Data Recorded Total Visit Count: 12 Visit Count since last G-Codes: 2 Pt comments: patient reports that she tolerated last therapy session well and that posterior knee felt better after therapy and that she is ready for discharge OBJECTIVE Pain: Pain Assessment Pain Assessment: 0-10 Numeric Pain Intensity Scale Pain Score: 0 - No pain Ortho Exam TREATMENT Treatment today consisted of: Reviewed hip exercises x 20 x 2: Hip abduction in the supine with red Thera- Band, side-lying with leg straight, standing, and with hip abduction with bridging and achieve final measurements bilateral knees 0-125 ?? Assessment Clinical Impression: Patient completed 12 outpatient physical therapies for status post right TKA. During that time patient received manual therapy, therapeutic exercise, and neuromuscular re-education. Patient met all 3 goals listed below and improved outcome measure from 26% disability to 2%. Patient is confident that she will be able to continue independently with home exercise program to continue improving activity tolerance and strengthening and BLE right > left. Interpretation: [employer] Osteoarthritis Index (WOMAC): 0% equates to no pain, stiffness or difficulty with functional activities. Eval score 26% discharge score 2% Functional Goals and Timeframes: PT Goal #1: [...] function PT Goal #3 Date: 08/13/18 Plan Discharge Selwyn Nielson P.T., D.P.T. Time Spent with Patient Therapeutic Exercise (min): 15 min Time Calculation Total Timed Units (min): 15 min Total Treatment Time (min): 15 min Functional G-code Worksheet Functional Assessment Tool Used: [employer] Functional Limitation: Mobility: Walking and moving around Mobility: Walking and Moving Around Goal Status (G8979): 0 percent impaired, limited or restricted Mobility: Walking and Moving Around Discharge Status (G8980): 0 percent impaired, limited or restricted documented in this encounter Plan of Treatment Not on filedocumented as of this encounter Visit Diagnoses Diagnosis Aftercare Total Knee Arthroplasty documented in this encounter Care Teams Deck Specialist Relationship Specialty Start Date End Date Chastity Davidson M.D. PCP - General 03/19/17 01/11/20 documented as of this encounter
--- OUTSIDE RECORDS SUMMARY | 2022-08-31 10:06 | XMS_ITS | Encounter Summary ---
:1945 Author Organization [facility] Address [address] [place] [address] Care Team Providers Name Role Phone Chastity Davidson M.D. Primary Care Provider Unavailable Reason for Visit Auth/Cert Specialty Diagnoses / Procedures Referred By Contact Refer red To Contact Diagnoses Follow Up Knee Replacement Status Post Procedures [place] ARTHRO KNEE CONDYLE&PLAT (TKA) ARTHROPLASTY REPLACEMENT TOTAL KNEE Referral ID Status Reason Start Date Expiration Date Visits Requ ested Visits Authorized [id number] 1 1 Encounter Details Date Type Department Care Team Description 06/01/2018 Surgery [facility] NAVEED OR Fausto Hoffman, ARTHROPLASTY REPLACEMENT [address] [facility] 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 - 06/03/2018 11:07 AM CDT DISCHARGE SUMMARY BRIEF OVERVIEW Discharge Provider: Fausto Hoffman D.O. Primary Care Providers: Chastity Davidson M.D. [facility] [address] [place] [phone] Primary Care Provider Primary Care Provider Other Providers: Gabriela Hernandez PA-C Admission Date: 06/01/2018 Discharge Date: 06/03/2018 PRINCIPAL DIAGNOSIS No Principal Problem: There is no principal problem currently on the Problem List. Please update theProblem List and refresh. SECONDARY DIAGNOSES Active Problems: Aftercare Total Knee Arthroplasty Gastroesophageal Reflux Disease Hypertension Essential Primary Chronic Idiopathic Constipation Resolved Problems: * No resolved hospital problems. * Operative Procedures: Scheduled (Keven), Completed (Comp) or Canceled (Can) Case IDs Date Procedure Surgeon Location Status [id number] 06/01/18 ARTHROPLASTY REPLACEMENT TOTAL KNEE Fausto Hoffman D.O. [facility] OR Comp DISCHARGE DISPOSITION Home or Self Care [1] OUTPATIENT FOLLOW UP Future Appointments Date Time Provider Department Center 06/04/2018 7:00 AM Selwyn Nielson P.T., D.P.T. [facility] 06/16/2018 3:15 PM Gabriela Hernandez P.A.-C. [facility] 07/05/2018 10:15 AM DX [facility] RM 01 DR SILVA DX [facility] 07/05/2018 11:00 AM Fausto Hoffman D.O. [facility] 09/08/2018 3:00 PM DX [facility] ORTHO RM 01 RAD DX [facility] 09/08/2018 3:30 PM Gabriela Hernandez P.A.-C. ORS [facility] TEST RESULTS PENDING AT DISCHARGE DETAILS OF HOSPITAL STAY REASON FOR ADMISSION Follow Up Knee Replacement Status Post Follow Up Knee Replacement Status Post HOSPITAL COURSE This is a 73 year old female who underwent the above procedure on 06/01/[address] Hoffman. Please refer to his operative report dated the same day for further details regarding this operation itself. Prior to admission, the patient was medically optimized for the operation and subsequently taken to the operating room as planned. The patient tolerated the procedure well and was admitted to the generalcare floor for continued recovery and observation. The patient has not had any complications during her hospital stay. She has remained afebrile and vital signs have been stable. The patient has been tolerating a regular diet without difficulty. She has been having bowel movements and has been able to void independently without issues. The patient has been working with physical therapy and toleratingit well. The operative incisions appear to be well-healing and there is not a significant amount of drainage/strike through bleeding noted over the Aquacel dressing. No erythema or concerns for infection. As such, the patient is ready to be discharged home today. All instructions regarding diet, activity, and wound care were discussed thoroughly with the patient today. All questions and concerns wereanswered to her satisfaction. CONSULTS ORDERED DURING THIS ADMISSION IP CONSULT TO CARE MANAGEMENT IP CONSULT TO HOSPITAL INTERNAL MEDICINE CONDITION AT DISCHARGE stable Discharge instructions were provided to the patient and caregiver(s). documented in this encounter Medications at Time of Discharge Medication Sig Dispensed Refills Start Date End Date acetaminophen Take 1,300 mg by 0 (for_TYLENOL 8 HR) 650 mg mouth 2 (two) times ER tablet a day. As needed CALCIUM CARBONATE/VITAMIN Take by mouth daily. 0 11/13/2009 D3 (CALCIUM WITH VITAMIN D ORAL) multivitamin capsule Take by mouth daily. 0 11/13 lisinopril Take 1 tablet (5 mg 90 tablet 3 10/12/201711/16 (for_PRINIVIL,ZESTRIL) 5 total) by mouth mg tablet daily. pantoprazole Take 1 tablet (20 mg 90 tablet 3 01/08/2018 (for_PROTONIX) 20 mg EC total) by mouth tablet daily. aspirin [address] tablet Take 1 tablet (81 mg 90 tablet 11 12/07/2018 total) by mouth 2 (two) times a day. oxyCODONE (ROXICODONE) 5 Take 1-2 tablets 90 tablet 0 06/0306/16/2018 mg immediate release (5-10 mg total) by tablet mouth every 4 (four) hours as needed for moderate pain or score 4-6 of 10. sennosides-docusate Take 1 tablet by 30 tablet 0 06/03/2018 06/16/2018 sodium (SENOKOT-S) 8.6-50 mouth at bedtime as mg per tablet needed for constipation. documented as of this encounter Progress Notes Ziyad Gavin P.TLa - 06/03/2018 9:00 AM CDT Physical Therapy Inpatient Treatment Note SUBJECTIVE Patient Comments: Patient reports she is doing well did take two pain medications though. Patient reports he has no concerns about going home with her . Patient's and her sister in law all were present during the session. OBJECTIVE Patient demonstrates independence with supine to sit to stand. Patient is independent with ambulation with a wheeled walker 80 m no loss of balance and equal step length. Patient was able to demonstrate independence with the total knee home exercise program achieved 0-105 degrees knee flexion active assistive range of motion. Reviewed plan of care with the patient and she had no further questions. Pain Assessment Pain Score: 1 Pain Type: Surgical pain Pain Location: Knee Pain Orientation: Right Pain Descriptors: Sore Pain Interventions: Cold applied Measures - Tools Assessment Patient being discharged home with family today and will have outpatient therapy follow-up. Patient has met the goals is independent with home exercise program Measures - Tools Plan Patient agrees with the plan of care and goals. Time Spent with Patient Group Therapy (min): 30 min Total Treatment Time (min): 30 min Functional G-code Worksheet Nestor Frances PLaT.A. - 06/02/2018 1:03 PM CDT Physical Therapy Inpatient Treatment Note SUBJECTIVE Patient Comments: Patient pleasant and willing to participate in Joint Camp. was present forboth session. OBJECTIVE Pain Assessment Pain Assessment: 0-10 Numeric Pain Intensity Scale Pain Score: 1 Pain Type: Surgical pain Pain Location: Knee Pain Orientation: Right Pain Onset: Ongoing Pain Frequency: Constant/continuous Clinical Progression: Gradually improving Exercise - Protocol Total Joints Exercise: Total knee Total Joints Exercise Comment: 0-113 degrees. Transfer - Sit to Stand # of Assistants: 1 Device: Front wheeled walker Level of Assistance: Modified Independent Transfer - Stand to Sit # of Assistants: 1 Level of Assistance: Modified Independent Device: Front wheeled walker Endurance Ambulation # of Assistants: 1 Level of Assistance: Modified Independent Device: Front wheeled walker Distance: 80 Meters Stairs # of Assistants: 1 Level of Assistance: Supervision/Set-up # Stairs: 5 Rails: 2 Device: No device Measures - Tools Assessment Measures - Tools Patient continues to show good progression. Patient was independent with transfers and ambulation. Patient ambulated 80 m using front wheel walker. Patient received green feet today. Patient demonstrated up and down 5 steps using 2 railings. Patient required verbal and tactile cues to complete TKA exer cises. Will continue to progress patient as able until discharge. Plan Patient plans to return to home with help of and family, which would be appropriate from a therapy point of view. Patient agrees with the plan of care and goals. EMERGENCY PREPAREDNESS MANAGER Trackin Time Spent with Patient Group Therapy (min): 90 min Total Treatment Time (min): 90 min Functional G-code Worksheet Khadijah Cutler O.T. - 06/02/2018 11:44 AM CDT Patient sleeping upon arrival. Patient had family member present. Patient reports that upon last discharge from her left TKA, she had no difficulty with ADLs. Patient states that she feels very comfortable with her discharge plan, no OT needs at this time. OT will sign off. Gabriela Hernandez P.A.-C. - 06/02/2018 9:17 AM CDT SUBJECTIVE: Mary Jane was seen and examined this morning. She is POD 1 from a right total knee arthroplasty. No major concerns overnight. Doing well this morning. Has been able to ambulate to her chair and the bathroom with a walker. Pain is well controlled. Denies numbness, tingling, nausea, and fevers. OBJECTIVE: VITALS: Vitals: 06/02/18 0700 BP: 115/71 Pulse: 102 Resp: 18 Temp: 36.9 ??C SpO2: 95% LABS: Recent Results (from the past 24 hour(s)) CBC with Differential Collection Time: 06/02/18 6:44 AM Result Value Hemoglobin 8.7 (L) Hematocrit 27.3 (L) Erythrocytes 2.81 (L) MCV 97.2 RBC Distrib Width 14.5 Platelet Count 248 Leukocytes 5.0 Neutrophils 2.88 Lymphocytes 1.17 Monocytes 0.70 Eosinophils 0.19 Basophils 0.01 GENERAL: Patient is comfortably sitting in her chair . Alert and oriented, in no acute distress. SKIN: Aquacel dressing in place. Minimal strikethrough bleeding. No significant erythema or concernsfor infection. MSK: Sensation to light touch intact to the distal extremity. Superficial peroneal, deep peroneal, tibial, sural, and saphenous nerves all intact. Active dorsiflexion and plantarflexion of the ankle noted. EHL and FHL intact. Calves soft and nontender. Brisk capillary refill. ASSESSMENT/PLAN: 1. POD 2 right from total knee arthroplasty - patient is doing well postoperatively. Vitals and labs are stable. - pain is well controlled this morning - Aquacel dressing is dry and intact - weight-bearing as tolerated to the operative extremity - pain control - ice and elevate - physical therapy/occupational therapy - ASA 325 mg b.i.d. for DVT prophylaxis - keep Aquacel dressing in place, reinforced as needed - disposition: Pending social Work and Physical therapy recommendations. Likely discharge home tomorrow if medically stable 2. Acute blood loss anemia - hemoglobin 8.7. Asymptomatic. Continue to monitor for now 3. Hypertension 4. GERD Mercy Mancuso D.O. - 06/02/2018 7:35 AM CDT SUBJECTIVE Subjective Patient was seen and evaluated this morning. Patient slept well overnight and worked with PT yesterday afternoon was noted to have worsening of right knee pain after working with physical therapy. Painimproved with the use scheduled Tylenol and oxycodone. Vital signs stable. Continues to remain afebrile and had good range of motion of right knee. Able to ambulate to the bathroom with use of walker. Patient notes that she has not had a bowel movement in the past day, requests Senna. She denies lightheadedness or dizziness. Review of systems: Completely negative review of systems unless noted in subjective section. MEDICATIONS Reviewed in the electronic health record today OBJECTIVE PHYSICAL EXAM Admission Weight: 86 kg Current Weight: 86 kg Temperature: [36 ??C-36.9 ??C] 36.9 ??C Heart Rate: [67-88] 78 Resp Rate: [11-21] 18 Blood Pressure: (80-135)/(42-119) 115/71 SpO2: [94 %-100 %] 95 % Pulse Rate: [64-102] 102 BP 120/88 Pulse 90 Temp 36.9 ??C Resp 16 Ht 157 cm Wt 86 kg SpO2 100% BMI 34.89 kg/m?? General: ??Alert, in no apparent distress. Pleasant Heart: ??S1, S2 with no significant murmurs, rubs or gallops. ??Regular rate and rhythm. Lungs: ??Breath sounds were clear throughout bilaterally. ??Respirations were regular, nonlabored. Abdomen: ??Soft, nontender, nondistended with bowel sounds active x 4 quadrants. ??No abdominal bruits. ??No rebound tenderness or guarding. ?? Extremities: ??Without redness or swelling. Patient is able to ambulate with the use of her walker. Range of motion near 90?? at this time without worsening of pain. Nontender to palpation of right knee. Strength of right and left lower extremities are symmetric and 5/5. Distal pulses intact. Trace LEedema of right leg. Skin: [place], warm, dry and intact with no rashes noted. Neurologic: ??No focal deficits. ??Sensorimotor function was intact in the bilateral upper and lowerextremities. ?? DIAGNOSTICS: Reviewed in the electronic health record today. DX Knee Right 2 View Final Result IMPRESSION: Total knee arthroplasty ? Recent Results (from the past 24 hour(s)) CBC with Differential Collection Time: 06/02/18 6:44 AM Result Value Hemoglobin 8.7 (L) Hematocrit 27.3 (L) Erythrocytes 2.81 (L) MCV 97.2 RBC Distrib Width 14.5 Platelet Count 248 Leukocytes 5.0 Neutrophils 2.88 Lymphocytes 1.17 Monocytes 0.70 Eosinophils 0.19 Basophils 0.01 ASSESSMENT / PLAN Assessment and plan: Mary Jane Rockwell??is a 73 y.o.??female?? with a past medical history of hypertension, GERD, and bilateral knee osteoarthritis status post left knee replacement (March 2018) that presents today postoperatively after total right knee arthroplasty earlier this afternoon. Patient was consulted for further medical management. ?? #1 Follow Up Knee Replacement Status Post - Patient is doing well post operatively of her right total knee arthroplasty. She is up and able toambulate with the use of a walker, has near 90?? flexion of her right knee, and lower extremity strength is 5/5 bilaterally. - Pain management with use of scheduled Tylenol and p.r.n. q4h oxycodone. - Ad Vicki movement, nursing staff. - PT/OT Consulted. ?? #GERD: Protonix ?? #HTN: Lisinopril and daily ASA #Chronic Constipation: Senna BID ?? #Anemia: -hemoglobin this morning was 8.7. Likely secondary to acute blood loss during surgery. - patient noted to have history of anemia prior. - Hg had went to to ~9 after past knee replacement. - Asymptomatic Continue home calcium carbonate carbonate with vitamin-D and multivitamin. ?? FEN: -Regular Diet as tolerated - NaCL 0.9 at 75 ml/hr ?? Dispo: Expect 1-2 days in-hospital status post right knee arthroplasty. ?? Associated attestation - Geovanna Sutton D.O. - 06/02/2018 6:39 PM CDT I saw and evaluated the patient, participating in the de la torre portions of the service. I reviewed the resident/fellow???s note. I agree with the resident/fellow???s findings and plan. Mina Cisneros BCC - 06/01/2018 4:49 PM CDT A Spiritual Care Coordination Note Only: Pt. is [facility] [employer] chris and pt. is a member of [place], [place]. Rest Room Matron Gregory is the fuel house attendant and the fuel house attendant is f/u. Ziyad Gavin P.T. - 06/01/2018 4:24 PM CDT Physical Therapy Inpatient Treatment Note SUBJECTIVE Patient Comments: Patient very pleasant woman. Patient seen postop right total knee to be weightbearas tolerated. Patient accompanied by her daughter and . Patient just had a left total knee done back in March reports everything went well. Patient lives in a multilevel home. She was independentwith ADLs and self cares prior to this. OBJECTIVE Patient demonstrating independence with supine to sit. Patient was contact guard assist with sit to stand. Patient was able to ambulate with a wheeled walker 5 m to the bathroom. Patient is standby assist with sit to stand from the toilet was able to wash her hands as well. Reviewed postop isometrics in the plan of care with the patient and her family. Measures - Tools Assessment Patient this time demonstrates standby assist contact guard with mobility. Patient went home last time with success after her other total knee and plans to do the same this time. Please refer to chart for goals. Measures - Tools Plan we will progress as able and start joint Camp. Patient agrees with the plan of care and goals. Time Spent with Patient Functional G-code Worksheet documented in this encounter H&P Notes Fausto Hoffman D.O. - 06/01/2018 7:19 AM CDT INTERVAL HISTORY AND PHYSICAL PRE-PROCEDURE UPDATE H&P reviewed. The patient was examined and there are no significant changes to the H&P. I discussed the risks, benefits, and alternatives to further non- operative versus surgical treatment. At no time were any guarantees implied or stated. Patient expressed understanding and a preference to proceed with surgery. Informed consent was obtained. Fausto Hoffman D.O. Source Note - Chastity Davidson M.D. - 05/17/2018 9:45 AM CDT SUBJECTIVE CHIEF COMPLAINT/REASON FOR VISIT Chief Complaint Patient presents with ??? Pre-op Exam Rt knee Dr Mary Mejía HISTORY OF PRESENT ILLNESS Mary Jane Rockwell is a 73 y.o. female who presents at the request of Dr. Hoffman for preoperative evaluation for surgery on right total knee arthroplasty that will take place at [facility] on 05/24/2018. REVIEW OF SYSTEMS See pertinent findings noted above in the History of Present Illness.Musculoskeletal: Positive for arthralgias and pain or stiffness in the joints. Right knee The following systems were negative: Constitutional, Skin, Eyes, ENT, CV, Respiratory, GI, , Hematologic, Neuro, Psych MEDICAL HISTORY Patient Active Problem List Diagnosis ??? Hypertension Benign Renovascular ??? Reflux Esophageal ??? Arthropathy ??? Hemorrhage Gastrointestinal ??? Anemia ??? Screening Cancer Colon ??? Primary Osteoarthritis Knee Right ??? Primary Osteoarthritis Knee Left ??? Aftercare Total Knee Arthroplasty ??? Follow Up Knee Replacement Status Post SURGICAL HISTORY Past Surgical History: Procedure Laterality Date ??? ARTHROPLASTY REPLACEMENT TOTAL KNEE Left 03/30/2018 Procedure: ARTHROPLASTY REPLACEMENT TOTAL KNEE; Surgeon: Fausto Hoffman D.O.; Location: [facility] ??? COLONOSCOPY N/A 02/01/2018 Procedure: COLONOSCOPY; [...] ??? Alcohol consumption Son ??? Hypertension Son No anesthesia or bleeding problems. SOCIAL HISTORY Social History Substance Use Topics ??? Smoking status: Former Smoker Packs/day: 0.25 Years: 35.00 Types: Cigarettes ??? Smokeless tobacco: Never Used Comment: quit about 10 yrs ago ??? Alcohol use 1.8 oz/week 3 Glasses of wine per week Comment: 2x or so per month 1 drink each time ALLERGIES/CONTRAINDICATIONS Allergies Allergen Reactions ??? Gentamicin Other (see comments) Made my eyes worse ??? Neosporin (Plo-Lyf-Bntvm) [Lhkgilgg-Urfezrhsjz-Nipxeunie] Other (see comments) ??? Tobramycin Other (see comments) Made my eyes worse CURRENT MEDICATIONS Current Outpatient Prescriptions Medication Sig Dispense Refill ??? acetaminophen (for_TYLENOL 8 HR) 650 mg ER tablet Take 1,300 mg by mouth 2 (two) times a day. Asneeded ??? CALCIUM CARBONATE/VITAMIN D3 (CALCIUM WITH VITAMIN D ORAL) Take by mouth daily. ??? lisinopril (for_PRINIVIL,ZESTRIL) 5 mg tablet Take 1 tablet (5 mg total) by mouth daily. 90 tablet 3 ??? multivitamin capsule Take by mouth daily. ??? mupirocin (BACTROBAN) 2 % ointment Apply to the nose twice daily starting 5 days before surgery,including the morning of surgery. 22 g 0 ??? oxyCODONE (ROXICODONE) 5 mg immediate release tablet Take 1 tablet (5 mg total) by mouth every 4(four) hours as needed for moderate pain or score 4-6 of 10. 90 tablet 0 ??? pantoprazole (for_PROTONIX) 20 mg EC tablet Take 1 tablet (20 mg total) by mouth daily. 90 tablet 3 ??? traMADol (ULTRAM) 50 mg tablet Take 1 tablet (50 mg total) by mouth every 4 (four) hours as needed for pain. 60 tablet 0 ??? sennosides-docusate sodium (SENOKOT-S) 8.6-50 mg per tablet Take 1 tablet by mouth 2 (two) timesa day. (Patient not taking: Reported on 05/17/2018 ) 30 tablet 0 OBJECTIVE VITAL SIGNS BP 126/86 (BP Location: Left arm, Patient Position: Sitting, Cuff Size: Regular) Pulse 78 Temp 36.1 ??C (Temporal) Ht 157 cm Wt 85.9 kg BMI 34.85 kg/m?? PHYSICAL EXAMINATION General: Alert, in no apparent distress, nontoxic appearing. Mood and affect were appropriate to thesituation. HEENT: No pallor or icterus. Conjunctivae and sclerae clear without redness or drainage. Oropharynx was clear with no erythema, exudate or tonsillar enlargement. Moist mucous membranes. Tympanic membranes pearly mathews left but right partially obscured by cerumen.. Neck: Trachea was midline. No lymphadenopathy. No thyromegaly or palpable masses. No carotid bruits. Heart: S1, S2 with no significant murmurs, rubs or gallops. Regular rate and rhythm. Lungs: Breath sounds were clear throughout bilaterally. Respirations were regular, nonlabored. Abdomen: Soft, nontender, nondistended with bowel sounds active x 4 quadrants. No abdominal bruits. No rebound tenderness or guarding. No obvious masses or hernias. No organomegaly noted. Extremities: Without redness, swelling, but trace edema. Skin: [place], warm, dry and intact with no rashes noted. Neurologic: No focal deficits. Sensorimotor function was intact in the bilateral upper and lower extremities. Pupils were equal, round, and reactive to light. Normal gait and posture noted. DTR???s 2+/4, Strengths 5/5. DIAGNOSTICS Results for orders placed or performed during the hospital encounter of 05/17/18 Bacterial Culture, Aerobic + Susc, Urine Result Value Ref Range Bacterial Culture, Aerobic, Urine Mixed byron. Hemoglobin Result Value Ref Range Hemoglobin 11.9 11.6 - 15.0 g/dL Urinalysis with Microscopic if Indicated Result Value Ref Range Source Midstream Clarity Clear Clear Color Yellow Blood Trace (A) Negative Nitrite Negative Negative Leukocyte Esterase Negative Negative Protein 30 (A) mg/dL Glucose Negative Negative mg/dL Ketones, QI(U) Trace (A) Negative mg/dL Bilirubin Small (A) Negative pH 6.0 5.0 - 8.0 Specific [place] 1.020 1.001 - 1.035 Urobilinogen 0.2 0.2 - 1.0 mg/dL Microscopic Manual Result Value Ref Range White Blood Cells 4-10 /hpf Red Blood Cells 3-10 (A) 0 - 2 /hpf Dysmorphic Red Blood Cells <=25 <=25 % Squamous Cells Occ-3 /hpf Type and Screen (with reflex Antibody ID) Result Value Ref Range RH Type POS Antibody Screen NEG Type & Screen Expiraton 05/20/2018 23:59 ASSESSMENT / PLAN #1 Preoperative Exam We will check CBC, UA/ UC, and a protime. She just had her other knee done 6 weeks ago and EKG was done then. She has tolerated that procedure well and I forsee that she will be cleared for this procedure. - CBC with Differential, Blood - Bacterial Culture, Aerobic + Susc, Urine; Future; Expected date: 05/17/2018 - Urinalysis with Microscopic if Indicated; Future; Expected date: 05/17/2018 - PT (Prothrombin Time) with INR #2 Hypertension Benign Renovascular She was taking the hydrochlorothiazide the last time she had surgery because her blood pressure wentlow. Her blood pressure has been well controlled without it, but will test a basic metabolic panel. - BMP (Basic Metabolic Panel) Addendum: Urine culture showed mixed byron so were going to clear patient for surgery. ADMINISTRATIVE BILLING Total time spent 25 minutes, 20 minutes spent in counseling and coordination of care. documented in this encounter Consult Notes Amanda Maza L.S.W. - 06/02/2018 3:12 PM CDTAssociated Order(s): IP CONSULT TO CARE MANAGEMENT SUBJECTIVE PT/OT has cleared patient to return home with support from her and family when medically stable. OBJECTIVE Mary Jane Rockwell is a 72 year old female admitted due to Follow Up Knee Replacement Status Post [Z09]. Social work was consulted for discharge planning. ASSESSMENT / PLAN ASSESSMENT Not complete. PLAN 1. Patient will discharge home with the support of family when medically stable. 2. Social Work will continue to assist as needed or requested. Lary Quan 06/02/2018 Mercy Mancuso D.O. - 06/01/2018 6:10 PM CDTAssociated Order(s): IP CONSULT TO [facility] Date of admission: 06/01/2018 Primary care physician: Dr. Davidson Requesting provider: Dr. Barragan, orthopedics History of present illness: Mary Jane Rockwell is a 73 y.o. female with a past medical history of hypertension, GERD, and bilateral knee osteoarthritis status post left knee replacement (March 2018) that presents today postoperatively after total right knee arthroplasty earlier this afternoon. Patient was consulted for further me dical management. Patient reports that she is doing well post surgery and that she has been up and able to ambulate to the bathroom using her walker. She reports minimal right knee pain since the procedure and stay that pain is well controlled with the use of scheduled Tylenol and p.r.n. Oxycodone (patient uses this at home Q 4 p.r.n. prior to the procedure). She denies fevers, chills, numbness, tingling, or weakness of her right lower extremity postprocedure. She has a history of hypertension for which she takes lisinopril 5 mg, GERD for which she takes Protonix, pain medications for knee pain (described above), calcium carbonate with vitamin D3, and daily multivitamin. She no longer takes senna as that is what she previously used for constipation. Reportsnormal bowel movements. Past Medical History: Diagnosis Date ??? Anemia ??? Arthritis Inflammatory (HCC) ??? Mendez's Esophagus ??? Gastroesophageal Reflux Disease NOS ??? Hemorrhage Gastrointestinal ??? Hypertension NOS ??? Primary Osteoarthritis Knee Left ??? Primary Osteoarthritis Knee Right Past Surgical History: Procedure Laterality Date ??? ARTHROPLASTY REPLACEMENT TOTAL KNEE Left 03/30/2018 Procedure: ARTHROPLASTY REPLACEMENT TOTAL KNEE; Surgeon: Fausto Hoffman D.O.; Location: [facility] ??? COLONOSCOPY N/A 02/01/2018 Procedure: COLONOSCOPY; Surgeon: Jazmyne Weaver M.D.; Location: [facility] GI LAB ??? CYST REMOVAL ??? ESOPHAGOGASTRODUODENOSCOPY N/A 02/01/2018 Procedure: ESOPHAGOGASTRODUODENOSCOPY; Surgeon: Jazmyne Weaver M.D.; Location: [facility] ??? TONSILLECTOMY AND ADENOIDECTOMY N/A 1950 Tonsillectomy and adenoidectomy Family History Problem Relation Age of Onset ??? Breast cancer Mother ??? Prostate cancer Grandfather ??? Lung cancer Grandfather ??? Parkinsons disease Aunt ??? Dementia Grandmother ??? Colon cancer Father ??? Hypertension Son ??? Anxiety State, Unspecified Son ??? Alcohol consumption Son ??? Hypertension Son Social History Social History ??? Marital status: Spouse name: N/A ??? Number of children: N/A ??? Years of education: N/A Social History Main Topics ??? Smoking status: Former Smoker Packs/day: 0.25 Years: 35.00 Types: Cigarettes ??? Smokeless tobacco: Never Used Comment: quit about 10 yrs ago ??? Alcohol use 1.8 oz/week 3 Glasses of wine per week Comment: 2x or so per month 1 drink each time ??? Drug use: No ??? Sexual activity: Yes Partners: Male control/ protection: Post-menopausal Other Topics Concern ??? None Social History Narrative ??? None Allergies Allergen Reactions ??? Gentamicin Other (see comments) Made my eyes worse ??? Neosporin (Hyw-Qjr-Plqnk) [Ssbhjsod-Csctdkxvtj-Cicoupbcv] Other (see comments) ??? Tobramycin Other (see comments) Made my eyes worse Current Facility-Administered Medications Medication Dose Route Frequency Provider Last Rate Last Dose ??? acetaminophen tablet 1,000 mg (TYLENOL) 1,000 mg oral Q6H KEVEN Gabriela Hernandez, P.A.-C. 1,000mg at 06/01/18 1551 ??? aspirin tablet 325 mg 325 mg oral BID Gabriela Hernandez, P.A.-C. ??? bisacodyl suppository 10 mg (DULCOLAX) 10 mg rectal Daily PRN Gabriela Hernandez, P.A.-C. ??? calcium carbonate chewable tablet 400 mg of calcium (TUMS) 400 mg of calcium oral Q2H PRN Gabriela Hernandez P.A.-C. ??? [START ON 06/02/2018] calcium carbonate-vitamin D3 1,250 mg (500 mg calcium)- 200 unit per tablet 1 tablet 1 tablet oral Daily Gabriela Hernandez P.A.-C. ??? ceFAZolin in dextrose (iso-os) IVPB 2 g (ANCEF) 2 g intravenous Q8H Gabriela Hernandez P.A.-C.200 mL/hr at 06/01/18 1223 2 g at 06/01/18 1223 ??? dexamethasone injection 4 mg (DECADRON) 4 mg intravenous Once PRN Gabriela Hernandez P.A.-C. ??? droperidol injection 0.625 mg (INAPSINE) 0.625 mg intravenous Q6H PRN Gabriela Hernandez P.A.-C. ??? fentaNYL (SUBLIMAZE) 50 mcg/mL injection - ADS Override Pull ??? fentaNYL injection (SUBLIMAZE) Code/Trauma/Sedation Anderson Brennan M.D. 50 mcg at 06/01/18 0732 ??? HYDROmorphone injection 0.25 mg (DILAUDID) 0.25 mg intravenous Q2H PRN Gabriela Hernandez P.A.-C. ??? ketorolac injection 15 mg (TORADOL) 15 mg intravenous Q6H Gabriela Hernandez P.A.-C. ??? [START ON 06/02/2018] lisinopril tablet 5 mg (PRINIVIL,ZESTRIL) 5 mg oral Daily Mercy Mancuso, Charleen.O. ??? menthol lozenge 1 lozenge 1 lozenge oral PRN Gabriela Hernandez P.A.-C. ??? midazolam (PF) (VERSED) 1 mg/mL injection - ADS Override Pull ??? midazolam (PF) injection (VERSED) Code/Trauma/Sedation Anderson Brennan M.D. 2 mg at [id number] ??? [START ON 06/02/2018] xukkcaqdnagv-siou-NL-Ca-minerals 9 mg iron-400 mcg tablet 1 tablet (THERAPEUTIC-M) 1 tablet oral Daily Gabriela Hernandez P.A.-C. ??? NaCl 0.9% infusion 75 mL/hr intravenous Continuous Gabriela Hernandez P.A.-C. 75 mL/hr at 06/01/18 1552 75 mL/hr at 06/01/18 1552 ??? naloxone injection 0.2 mg (NARCAN) 0.2 mg intravenous PRN Gabriela Hernandez P.A.-C. ??? ondansetron (PF) injection 4 mg (ZOFRAN) 4 mg intravenous Q6H PRN Gabriela Hernandez P.A.-C. ??? oxyCODONE IR tablet 5 mg (ROXICODONE) 5 mg oral Q4H PRN Gabriela Hernandez P.A.-C. 5 mg at 06/01/18 1631 Or ??? oxyCODONE IR tablet 10 mg (ROXICODONE) 10 mg oral Q4H PRN Gabriela Hernandez P.A.-C. ??? [START ON 06/02/2018] pantoprazole DR tablet 40 mg (PROTONIX) 40 mg oral Daily before breakfast Gabriela Hernandez P.A.-C. ??? polyethylene glycol powder packet 1 packet (MIRALAX) 1 packet oral Daily PRN Gabriela Hernandez P.A.-C. ??? promethazine injection 6.25 mg (PHENERGAN) 6.25 mg intravenous Q6H PRN Gabriela Hernandez P.A.-C. ??? vancomycin injection PRN Fausto Hoffman D.O. 1 g at 06/01/18 0916 BP 120/88 Pulse 90 Temp 36.9 ??C Resp 16 Ht 157 cm Wt 86 kg SpO2 100% BMI 34.89 kg/m?? General: Alert, in no apparent distress. [place]: S1, S2 with no significant murmurs, rubs or gallops. Regular rate and rhythm. Lungs: Breath sounds were clear throughout bilaterally. Respirations were regular, nonlabored. Abdomen: Soft, nontender, nondistended with bowel sounds active x 4 quadrants. No abdominal bruits. No rebound tenderness or guarding. Extremities: Without redness or swelling. Patient is able to ambulate with the use of her walker. Right leg is wrapped in dressing. Range of motion near 90?? at this time without worsening of pain. Nontender to palpation of right knee. Strength of right and left lower extremities are symmetric and 5/5. Distal pulses intact. Skin: [place], warm, dry and intact with no rashes noted. Neurologic: No focal deficits. Sensorimotor function was intact in the bilateral upper and lower extremities. No results found for this or any previous visit (from the past 24 hour(s)). DX Knee Right 2 View Final Result IMPRESSION: Total knee arthroplasty Assessment and plan: Mary Jane Rockwell is a 73 y.o. female with a past medical history of hypertension, GERD, and bilateral knee osteoarthritis status post left knee replacement (March 2018) that presents today postoperatively after total right knee arthroplasty earlier this afternoon. Patient was consulted for further nd dical management. #1 Follow Up Knee Replacement Status Post - Patient is doing well post operatively of her right total knee arthroplasty. She is up and able toambulate with the use of a walker, has near 90?? flexion of her right knee, and lower extremity strength is 5/5 bilaterally. - Pain management with use of scheduled Tylenol and p.r.n. q4h oxycodone. - Ad Vicki movement, nursing staff. - PT/OT Consulted. #GERD: Protonix #HTN: Lisinopril and daily ASA Continue home calcium carbonate carbonate with vitamin-D and multivitamin. FEN: -Regular Diet as tolerated - NaCL 0.9 at 75 ml/hr Dispo: Expect 1-2 days in-hospital status post right knee arthroplasty. Associated attestation - Guanako Mora M.D. - 06/13/2018 8:30 AM CDT I saw and evaluated the patient, participating in the de [place] tor[place] portions of the service. I reviewed the resident/fellow???s note. I agree with the resident/fellow???s findings and plan. documented in this encounter Nursing Notes Janiya Greer R.N. - 06/03/2018 11:00 AM CDT INPATIENT DISCHARGE SUMMARY Discharge Provider: Fausto Hoffman D.O. Admission Date: 06/01/2018 Discharge Date: 06/03/2018 DISCHARGE DISPOSITION Home/Self Care CONDITION AT DISCHARGE stable TREATMENTS None DEVICES/EQUIPMENT None PROFESSIONAL SKILLED SERVICES None MODE OF DISCHARGE Wheelchair TRANSPORTATION Private Vehicle ACCOMPANIED BY Escort/Volunteer All belongings sent home with patient. Pt dc'd home with family with return appt and RX . Reviewed cares and dc instructions TAT Janiya Greer R.N. - 06/03/2018 10:57 AM CDT Goals: Clinical Goals for the Shift: Patient to have adequate pain control. Patient to rest Identify possible barriers to meeting goals/advancing plan of care: Stability of the patient: Moderately Stable - Low risk of patient condition declining or worsening End of Shift Summary: Pt to therapy and tolerated well. Surg staff seen and relaxed home. Dr Sutton seen and ok to dc home. F/U appt and Therapy scheduled for 06-04-18. Pt given home RX for home and reviewed dc instructions for home care, activities,wound care . Lea Sanders R.N. - 06/03/2018 4:50 AM CDT Goals: Clinical Goals for the Shift: Patient to have adequate pain control. Patient to rest Identify possible barriers to meeting goals/advancing plan of care: none Stability of the patient: Moderately Stable - Low risk of patient condition declining or worsening End of Shift Summary: patient rested well during the night. Used call light appropriately. Pain was managed with Oxycodone. Jayla Nagy R.N. - 06/02/2018 9:00 PM CDT Goals: Maintain a safe environment Progressing Pain control Identify possible barriers to meeting goals/advancing plan of care: none Stability of the patient: Moderately Stable - Low risk of patient condition declining or worsening End of Shift Summary: pt has been doing very well. Had minimal pain at the surgical site, well controlled with meds. Ambulating in room independently, no complaints. Plan to be d/c'd in am. Len Payan R.N. - 06/02/2018 3:33 PM CDT Goals: Pain control, walk in halls with staff BID. Identify possible barriers to meeting goals/advancing plan of care: None Stability of the patient: Moderately Stable - Low risk of patient condition declining or worsening End of Shift Summary: Patient doing well, pain has been controlled with minimal PRN use, and patienthas been up walking in halls with staff. Received green feet today and hopes to Dc tomorrow. Brigitte Lombardo R.N. - 06/02/2018 12:58 AM CDT Goals: Clinical Goals for the Shift: Patient to have adequate pain control. Patient to rest Identify possible barriers to meeting goals/advancing plan of care: None Stability of the patient: Moderately Stable - Low risk of patient condition declining or worsening End of Shift Summary: Patient resting in bed. Patient up to restroom, no complaint of pain with movement. ICE to right side. Patient has no other complaints at this time. Will continue to monitor patient. See MAR, patient declined toradol. Patient up to restroom again, with no complaints. Jayla Nagy R.N. - 06/01/2018 8:48 PM CDT Goals: stable post op recovery, pain control. Identify possible barriers to meeting goals/advancing plan of care: none Stability of the patient: Moderately Stable - Low risk of patient condition declining or worsening End of Shift Summary: Pt has been doing well this evening. Got up and worked with PT. Had moderate pain after, pain meds given as scheduled. VSS. Will continue with present POC. Emy Eagle R.N. - 06/01/2018 2:41 PM CDT Goals: Clinical Goals for the Shift: Patient will get situated in room and have adequate pain management Identify possible barriers to meeting goals/advancing plan of care: Post-Op Stability of the patient: Moderately Stable - Low risk of patient condition declining or worsening End of Shift Summary: Patient was situated in her room and denies having any pain. Patient is vitally stable. Will continue to monitor and follow plan of care. documented in this encounter OR Notes Op Note - Fausto Hoffman D.O. - 06/01/2018 8:19 AM CDT FULL OP NOTE Procedure(s): ARTHROPLASTY REPLACEMENT TOTAL KNEE (Right) Surgeon(s) and Role: * Fausto Hoffman D.O. - Primary Anesthesia Type: Regional Pre-Operative Diagnosis: Follow Up Knee Replacement Status Post [Z09] Post-Operative Diagnosis: Same as pre-operative diagnosis Findings: As expected Complications: None Description of Procedure: FOREIGN LANGUAGE INTERPRETER: Ileana Hernandez PA-C -The physician certified medical technician assistant was necessary in the surgical case as described above. The presence of a skilled physician certified medical technician assistant was integral for patient positioning, retraction, component implantation, and wound closure. DVT PROPHYLAXIS: Intermittent Compression devices for DVT prophylaxis were placed on the non-operative lower extremity INFECTION CONTROL l: This procedure was performed in a laminar airflow room. The surgical team wore total body exhaust suits. Tobramycin antibiotic impregnated cement was used during the procedure. Preoperative prophylactic antibiotics were given intravenously following appropriate S.C.I.P protocol. SURGICAL INDICATIONS: This is a 73 y.o. year old female with a history of pain and disability from progressive deterioration of the knee. Conservative management efforts have failed. I discussed the risks, benefits, and alternatives to further non-operative versus surgical treatment. At no time were any guarantees implied or stated. Patient expressed understanding and a preference to proceed with surgery. Informed consent was obtained. SURGICAL CONSENT: I discussed the risks, benefits, and alternatives to further non-operative versus surgical treatment. At no time were any guarantees implied or stated. Patient expressed understandingand a preference to proceed with surgery. Informed consent was obtained. PROCEDURE: The patient was met in the preop holding area where the operative limb was identified andappropriately marked with a skin pen. The appropriate antibiotic was verified. The patient was prepared by the nursing staff for the surgical procedure. The patient was also evaluated by the anesthesiastaff and the preoperative regional blocks as indicated were placed by anesthesia. Patient was then transported to the surgical operating room. The patient was placed on the operatingroom table in the supine position. And the above- designated anesthetic was induced. The patient was checked to make sure that all bony prominences were properly padded. A tourniquet was placed on the proximal thigh. Great care was taken in being certain that the tourniquet was well- padded. The tourniquet and genitilia were sealed from the operative zone by an impervious drape. The skin was then prepared with antibacterial prep and sterile draping was performed. A final timeout was performed verifying the appropriate limb for surgery and also verifying that thepreoperative prophylactic antibiotic of choice has been given based on the S.C.I.P. Standards. The extremity was exsanguinated and the pneumatic tourniquet was elevated. The anterior midline incision and joint arthrotomy was then performed exposing the knee joint. A minimal incision and a dissection was performed throughout the procedure in an effort to reduce morbidity, but still have adequate exposure to safely perform the procedure under direct vision. A proper debridement of inflammatory tissue and synovium as well as bony osteophytes was performed. The total knee component system was then used to size the distal femur, proximal tibia, patella, and tibial tray. Based on these sizes the appropriate jig system was used to make the proper cuts on the distal femur, proximal tibia and patella. During the procedure all soft tissues as well as neurovascular structures were appropriately protected and monitored. Additional osteophytes were removed from bone as necessary. Copious irrigation was performed frequently throughout the procedure. Electrocautery was used as necessary. Once all the appropriate cuts were made, the trial components were placed. With the trial componentsin position, the knee was taken through a range of motion. The knee achieved full extension without instability, as well as full flexion. There were no signs of anterior, posterior, medial, or lateral instability. The trial components were then removed. Additional extensive irrigation was performed. The cut surfaces were then appropriately dried. The periarticular injection was then placed in the posterior compartment and also in the medial and lateral gutters. This consisted of about 50% of the total volume. Using cement the final components were cemented into position. Once all permanent components had been cemented into place and the cement had hardened as well as excess cement removed, the range of motion of the knee was again evaluated. The knee reached full extension without hyperextension. The knee r eached full flexion without signs of anterior, posterior, medial, or lateral instability. Additionalirrigation was performed using an antibiotic solution. The remaining 50% of the injection was then injected in the anterior capsule and the surrounding anterior tissues. The tourniquet was released and hemostasis was fully obtained with electrocautery. Once hemostasis was adequate we performed a betadine solution irrigation, followed by placing 1 gram of vancomycin powder in the wound. The capsule was closed with #2 vicryl and a barbed running suture. The subcutaneous tissue was closed with multiple absorbable sutures. The skin was approximated using surgical maryana. Aquacell dressing was applied. The patient was transported to the recovery room when determined stable by the anesthesia personnel. Specimens * No specimens in log * Drains Estimated Blood Loss No blood loss documented. Implants Implant Name Type Inv. Item Serial No. Automotive Dismantler Lot No. LRB No. Used Action CMNT BN HI VISC PMMA 40 - [id number] Bone Cement CMNT BN HI VISC PMMA 40 [employer]Bubble [id number] Right 1 Implanted CMNT BN HI VISC PMMA 40 - [id number] Bone Cement CMNT BN HI VISC PMMA 40 [place] [id number] Right 1 Implanted PAT ATT MDLZD 35 - [id number] Knee Implant PAT ATT MDLZD 35 [employer] Spine [id number] Right 1 Implanted KN FEM ATT RT CMNT PS SZ-4 - [id number] Knee Implant KN FEM ATT RT CMNT PS SZ-4 Depuy Spine [id number] Right 1 Implanted BSPLT TIB ATT ROT SZ4 - [id number] Knee Implant BSPLT TIB ATT ROT SZ4 Depuy Synthes [id number] Right1 Implanted INS TIB ATT ROT PS SZ4 10 - [id number] Knee Implant INS TIB ATT ROT PS SZ4 10 Depuy Synthes [id number] Right 1 Implanted Intra-op Medications Date/Time Order Dose Route Action Action by 06/01/2018 0808 ceFAZolin in dextrose (iso-os) IVPB 2 g (ANCEF) 2 g intravenous Given Mahendra Ahmadi 06/01/2018 0816 tranexamic acid 1 g in NaCl 0.9% IVPB 1 g intravenous New Bag Mahendra Ahmadi 06/01/2018 0916 vancomycin injection 1 g topical Given Sergo Hoffman D.O. documented in this encounter Plan of Treatment Not on filedocumented as of this encounter Procedures Procedure Name Priority Date/Time Associated Comments Diagnosis CBC WITH Routine 06/03/2018 7:03 Results for DIFFERENTIAL, B AM CDT this procedu re are in the results section. CBC WITH Routine 06/02/2018 6:44 Results for DIFFERENTIAL, B AM CDT this procedu re are in the results section. DX KNEE RIGHT 2 RAD - Routine 06/01/2018 10:19 Results for VIEW (most inpatients AM CDT this proced ure and all are in the outpatients) results section. ADULT OXYGEN Routine 06/01/2018 10:02 THERAPY AM CDT EXTUBATION Routine 06/01/2018 10:02 AM CDT ARTHROPLASTY 06/01/2018 7:41 Follow Up Knee REPLACEMENT TOTAL AM CDT Replacement Status KNEE Post documented in this encounter Results (ABNORMAL) CBC with Differential (06/03/2018 7:03 AM CDT) [facility] Method Time Signature Hemoglobin 9.3 (L) 11.6 - 06/03/2018 [facility] 15.0 g/dL 7:20 AM CDT [facility] Hematocrit 28.9 (L) 35.5 - 06/03/2018 [facility] 44.9 % 7:20 AM CDT [facility] Erythrocytes 3.00 (L) 3.92 - 06/03/2018 [facility] 5.13 7:20 AM CDT [facility] x10(12)/L [facility] MCV 96.3 78.2 - 06/03/2018 [facility] 97.9 fL 7:20 AM T [facility] RBC Distrib Width 14.6 12.2 - 06/03/2018 [facility] 16.1 % 7:20 AM CDT [facility] Platelet Count 244 157 - 371 06/03/2018 [facility] x10(9)/L 7:20 AM CDT [facility] Leukocytes 6.7 3.4 - 9.6 06/03/2018 [facility] x10(9)/L 7:20 AM T [facility] Neutrophils 4.63 1.56 - 06/03/2018 [facility] 6.45 7:20 AM CDT [facility] x10(9)/L [facility] Lymphocytes 0.96 0.95 - 06/03/2018 [facility] 3.07 7:20 AM CDT [facility] x10(9)/L [facility] Monocytes 0.81 0.26 - 06/03/2018 [facility] 0.81 7:20 AM CDT [facility] x10(9)/L [facility] Eosinophils 0.29 0.03 - 06/03/2018 [facility] 0.48 7:20 AM CDT [facility] x10(9)/L [facility] Basophils 0.01 0.01 - 06/03/2018 [facility] 0.08 7:20 AM CDT [facility] x10(9)/L [facility] Specimen Anatomical Collection Method Collection Time Receive d Time (Source) Location / / Volume Laterality Blood (Blood, 06/03/2018 7:03 AM 06/03/20 18 7:14 Venous) CDT AM CDT Gabriela Hernandez P.A.-C. LAB BLOOD ADD-ON Performing Organization Address City/State/ZIP Code Phon e Number [facility] [address] [place] [address] LAB (ABNORMAL) CBC with Differential (06/02/2018 6:44 AM CDT) [facility] Method Time Signature Hemoglobin 8.7 (L) 11.6 - 06/02/2018 [facility] 15.0 g/dL 7:06 AM T [facility] Hematocrit 27.3 (L) 35.5 - 06/02/2018 [facility] 44.9 % 7:06 AM CDT [facility] Erythrocytes 2.81 (L) 3.92 - 06/02/2018 [facility] 5.13 7:06 AM CDT [facility] x10(12)/L [facility] MCV 97.2 78.2 - 06/02/2018 [facility] 97.9 fL 7:06 AM CDT [facility] RBC Distrib Width 14.5 12.2 - 06/02/2018 [facility] 16.1 % 7:06 AM T [facility] Platelet Count 248 157 - 371 06/02/2018 [facility] x10(9)/L 7:06 AM T [facility] Leukocytes 5.0 3.4 - 9.6 06/02/2018 [facility] x10(9)/L 7:06 AM T [facility] Neutrophils 2.88 1.56 - 06/02/2018 [facility] 6.45 7:06 AM CDT HEALTH x10(9)/L [facility] Lymphocytes 1.17 0.95 - 06/02/2018 [facility] 3.07 7:06 AM CDT HEALTH x10(9)/L [facility] Monocytes 0.70 0.26 - 06/02/2018 [facility] 0.81 7:06 AM CDT HEALTH x10(9)/L [facility] Eosinophils 0.19 0.03 - 06/02/2018 [facility] 0.48 7:06 AM CDT [facility](9[facility] Basophils 0.01 0.01 - 06/02/2018 [facility] 0.08 7:06 AM CDT HEALTH x10(9)/[facility] Specimen Anatomical Collection Method Collection Time Receive d Time (Source) Location / / Volume Laterality Blood (Blood, 06/02/2018 6:44 AM 06/02/20 18 6:54 Venous) CDT AM CDT Gabriela Hernandez P.A.-C. LAB BLOOD ADD-ON Performing Organization Address City/State/ZIP Code Phon e Number [facility] [address] [place] [address] LAB DX Knee Right 2 View (06/01/2018 10:19 AM CDT) Anatomical Region Laterality Modality Knee, Lower Extremity, Musculoskeletal RST LOS Right Digital Radiography Specimen (Source) Anatomical Collection Method Collection Time Re ceived Time Location / / Volume Laterality 06/01/2018 11:00 AM CDT Impressions 06/01/2018 11:08 AM CDT IMPRESSION: Total knee arthroplasty Narrative 06/01/2018 11:08 AM CDT EXAM: DX KNEE RIGHT 2 VIEW COMPARISON: February 24, 2018 FINDINGS: There is been total knee arthr oplasty. Position and alignment is satisfactory. An ossific opacity seen pr eviously superior and lateral to the patella is no longer evident. Gas in sof t tissues and surgical maryana are noted. Procedure Note Gabe Elliott M.D. - 06/01/2018Forma tting of this note might be different from the original. EXAM: DX KNEE RIGHT 2 VIEW COMPARISON: February 24, 2018 FINDINGS: There is been total knee arthr oplasty. Position and alignment is satisfactory. An ossific opacity seen pr eviously superior and lateral to the patella is no longer evident. Gas in sof t tissues and surgical maryana are noted. IMPRESSION: Total knee arthroplasty Gabriela Hernandez P.A.-C. IMG DIAGNOSTIC IMAGING PROC EDURES documented in this encounter Visit Diagnoses Diagnosis Follow Up Knee Replacement Status Post - Primary Aftercare Total Knee Arthroplasty Follow Up Knee Replacement Status Post documented in this encounter Admitting Diagnoses Diagnosis Follow Up Knee Replacement Status Post documented in this encounter Administered Medications Inactive Administered Medications - up to 3 most recent administrations Medication Order MAR Action Action Date Dose Rate Site acetaminophen tablet 1,000 mg Given 06/03/2018 6:13 AM CDT 1,000 mg (TYLENOL) 1,000 mg, oral, Every 6 hours scheduled, First dose on Thu06/01/18 at 1600 Given 06/03/2018 12:08 AM CDT 1,000 mg Given 06/02/2018 6:01 PM CDT 1,000 mg aspirin tablet 325 mg Given 06/03/2018 8:01 AM CDT 325 mg 325 mg, oral, 2 times daily, First dose on Thu06/01/18 at 2100 Given 06/02/2018 8:06 PM CDT 325 mg Given 06/02/2018 8:13 AM CDT 325 mg calcium carbonate-vitamin D3 1,250 mg (500 Given 06/03 8:00 AM CDT 1 tablet mg calcium)-200 unit per tablet 1 tablet 1 tablet, oral, Daily, First dose on Thu06/02/18 at 0900 Given 06/02/2018 8:12 AM CDT 1 tablet EPINEPHrine 0.2 mg, ketorolac 30 mg, Given 06/01/2018 9:35 AM CD T Right Knee ropivacaine (PF) 300 mg in NaCl 0.9% injection periarticular, Once, On Thu06/01/18 at 0900, For 1 dose, Intra-Op, Drug Monitoring Program: Pharmacist to adjust medication order based on comorbities and indication. lisinopril tablet 5 mg (PRINIVIL,ZESTRIL ) Given 06/03/2018 8:01 AM CDT 5 mg 5 mg, oral, Daily, First dose on Thu06/02/18 at 0900 Given 06/02/2018 8:13 AM CDT 5 mg hxvcfyfbcvol-iyek-MR-Ca-minerals 9 mg Given 06/03/2018 8:01 AM C DT 1 tablet iron-400 mcg tablet 1 tablet (THERAPEUTI C-M) 1 tablet, oral, Daily, First dose on Thu06/02/18 at 0900 Given 06/02/2018 8:12 AM CDT 1 tablet NaCl 0.9% infusion Rate/Dose Verify 06/02/2018 6:19 AM CDT 75 mL/hr 75 mL/hr 75 mL/hr, intravenous, Continuous, Starting on Thu06/01/18 at 1545, May discontinue once oral intake and urine output is adequate New Bag 06/02/2018 5:43 AM CDT 75 mL/hr 75 mL/hr New Bag 06/01/2018 3:52 PM CDT 75 mL/hr 75 mL/hr oxyCODONE IR tablet 10 mg (ROXICODONE) Given 06/03/2018 8:01 AM CDT 10 mg 10 mg, oral, Every 4 hours PRN, severe pain or score 7-10 of 10, Starting on Thu06/01/18 at 1540, Second line therapy. If patient is greater than 7 after 2 hours, call service for new order. oxyCODONE IR tablet 5 mg (ROXICODONE) Given 06/03/2018 4:19 AM CDT 5 mg 5 mg, oral, Every 4 hours PRN, moderate pain or score 4-6 of 10, Starting on Thu06/01/18 at 1540, Second line therapy Given 06/03/2018 12:08 AM CDT 5 mg Given 06/02/2018 8:06 PM CDT [address] tablet 40 mg (PROTONIX) Given 06/03/2018 6:12 AM CDT 40 mg 40 mg, oral, Daily before breakfast, First dose on Thu06/02/18 at 0700, Swallow whole. Do NOT crush, chew, or split tablet. Given 06/02/2018 6:15 AM CDT 40 mg sennosides-docusate sodium 8.6-50 mg per Given 06/03/2018 8:01 A M CDT 1 tablet tablet 1 tablet (SENOKOT-S) 1 tablet, oral, 2 times daily, First dose on Thu06/02/18 at 0900 Given 06/02/2018 8:06 PM CDT 1 tablet Given 06/02/2018 11:58 AM CDT 1 tablet vancomycin injection Given 06/01/2018 9:16 AM CDT 1 g Right Knee As needed, Starting on Thu06/01/18 at 0916, Intra-Op documented in this encounter Active and Recently Administered Medications Times are shown in CDT. Scheduled Medication Order 06/01/2018 06/02/2018 06/03/2018 acetaminophen tablet 1,000 mg (TYLENOL) (COMPLETED) 07 04 (Given - Provider: Lupe Layton R.N.) 1,000 mg, oral, Once, On Thu06/01/18 at 0645, For 1 dose, Pre-Op acetaminophen tablet 1,000 mg (TYLENOL) 1551 (Given - Provider: Jayla Nagy RLaN.) 0042 (Given - Provider: Brigitte Lombardo R.N.)0615 (Given - Provider: Brigitte M Goskeson, R.N.)1158 (Given - Provider: Len Payan R.N.)1801 (Given - Provider: Jayla Nagy R.N.) 0008 (Given - Provider: Lea Sanders RLaNLa)0613 (Given - Provider: Lea Sanders RLaNLa) 1,000 mg, oral, Every 6 hours scheduled, First dose on Thu at 1600 aspirin tablet 325 mg 2008 (Given - Provider: Jayla chua RLaNLa) 08 (Given - Provider: Len Payan R.N.)2005 (Given - Provider: Jayla Nagy R.N.) 0801 (Given - Provider: Beverly DiazNLa) 325 mg, oral, 2 times daily, First dose on Thu06/01/18 at 2100 calcium carbonate-vitamin D3 1,250 mg (5 00 mg calcium)-200 unit per tablet 1 tablet 0812 (Given - Provider: Len pablo RSuresh) 0800 (Given - Provider: Janiya Greer R.N.) 1 tablet, oral, Daily, First dose on Thu06/02/18 at 0900 ceFAZolin in dextrose (iso-os) IVPB 2 g (ANCEF) (COMPL ETED) 0808 (Given - Provider: Lei Ahmadi APRN, [facility]) 2 g, intravenous, at 200 mL/hr, Administ er over 30 Minutes, Once, Thu06/01/18 at 0630, For 1 dose, Intra-Op, Preoperatively within 1 hour prior to surgical incision premix, Drug Monitoring Program: Phar macist to adjust medication order based on comorbities and indication., Indications: Prophylaxis, Surgical ceFAZolin in dextrose (iso-os) IVPB 2 g (ANCEF) (COMPL ETED) 1223 (New Bag - Provider: Ann-Marie Sanford R.N.)2009 (New Bag - Provider: Jayla Nagy R.N.) 2 g, intravenous, at 200 mL/hr, Administ er over 30 Minutes, Every 8 hours, First dose on Thu06/01/18 at 1215, For 2 doses, First post-operative dose to be given 4 hours from last pre-operative/intra-ope rative dose. Dose: 1 gm for patients lance ghing less than 80 kg, 2 gm for patients weighing 80 kg or greater. premix, Drug Monitoring Program: Pharmacist to adjust medication order based on comorbities an d indication., Indications: Prophylaxis, surgical celecoxib capsule 200 mg (CeleBREX) (COMPLETED) 07 ( Given - Provider: Lupe Layton R.N.) 200 mg, oral, Once, On Thu06/01/18 at 0645, For 1 dose EPINEPHrine 0.2 mg, ketorolac 30 mg, rop ivacaine (PF) 300 mg in NaCl 0.9% injection (COMPLETED) 899 (Due)0935 (Given - Provider: Bal Hernandez P.A.-C.) periarticular, Once, On Thu06/01/18 at 0 900, For 1 dose, Intra-Op, Drug Monitoring Program: Pharmacist to adjust medication order based on comorbities and indication. lisinopril tablet 5 mg (PRINIVIL,ZESTRIL) 0813 (Given - Provider: Len Payan R.N.) 0801 (Given - Provider: Janiya bettencourt R.N.) 5 mg, oral, Daily, First dose on Thu06/02/18 at 0900 fewgldfjbooy-oocg-QQ-Ca-minerals 9 mg ir on-400 mcg tablet 1 tablet (THERAPEUTIC-M) 0812 (Given - Provider: Len pablo R.N.) 0801 (Given - Provider: Janiya Greer R.N.) 1 tablet, oral, Daily, First dose on Thu06/02/18 at 0900 oxyCODONE 12 hr tablet 10 mg (OxyCONTIN) (COMPLETED) 0 705 (Given - Provider: Lupe Layton R.N.) 10 mg, oral, Once, On Thu06/01/18 at 064 5, For 1 dose, Pre-Op, On arrival to patient waiting area Swallow whole. Do NOT crush, chew, or split tablet. pantoprazole DR tablet 40 mg (PROTONIX) 0615 (Given - Provider: Brigitte M Goskeson, R.N.) 0612 (Given - Provider: Lea Sanders R.NLa) 40 mg, oral, Daily before breakfast, Fir st dose on Thu06/02/18 at 0700, Swallow whole. Do NOT crush, chew, or split tablet. sennosides-docusate sodium 8.6-50 mg per tablet 1 tablet (SE NOKOT-S) 1158 (Given - Provider: Len Payan R.N.)2005 (Given - Provider: Jayla Nagy R.N.) 0801 (Given - Provider: Janiya bettencourt R.N.) 1 tablet, oral, 2 times daily, First dose on Thu06/02/18 at 0900 tranexamic acid 1 g in NaCl 0.9% IVPB (COMPLETED) 0816 (New Bag - Provider: Lei Ahmadi APRN, MARY JO)0929 (Bolus - Provider: Lei Ahmadi APRN, MARY JO) 1 g, intravenous, at 150 mL/hr, Administ er over 20 Minutes, Once, Thu06/01/18 at 0630, For 1 dose, Intra-Op, Administer in OR upon induction Mini-Bag Plus bag, Drug Monitoring Program: Pharmacist to adj ust medication order based on comorbities and indication. Continuous Medication Order 06/01/2018 06/02/2018 06/03/2018 lactated ringers (CANCELED) 0742 (New Bag - Provider: Lei Ahmadi APRN, MARY JO)0840 (New Bag - Provider: Lei Ahmadi APRN, MARY JO)0957 (Anesthesia Volume Adjustment - Provider: Lei Ahmadi APRN, MARY JO) 20 mL/hr, intravenous, at 20 mL/hr, Cont inuous, Starting Thu06/01/18 at 0645, Pre-Op NaCl 0.9% infusion 1552 (New Bag - Provider: Jayla chua, R.N.) 0543 (New Bag - Provider: Brigitte Lombardo R.NLa)0619 (Rate/Dose Verify - Provider: Brigitte Lombardo R.NLa) 75 mL/hr, intravenous, Continuous, Start ing on Thu06/01/18 at 1545, May discontinue once oral intake and urine output is adequate PRN Medication Order 06/01/2018 06/02/2018 06/03/2018 bisacodyl suppository 10 mg (DULCOLAX) 10 mg, rectal, Daily PRN, constipation, Starting Thu06/01/18 at 1539, Ordered sequence of administration: polyethylene glycol, then bisacodyl until BM achieved. calcium carbonate chewable tablet 400 mg of calcium (TUMS) 400 mg of calcium, oral, Every 2 hour NH N, indigestion, Starting Thu06/01/18 at 1539, Doses listed are in mg of elemental calcium. Take with food. 500 mg calcium carbonate contains 200 mg of elemental calcium. dexamethasone injection 4 mg (DECADRON) 4 mg, intravenous, Once as needed, nause a, vomiting, Starting Thu06/01/18 at 1539, For 1 dose, Give only if NOT given during the pre or intraoperative period. If ondansetron ordered, give dexamethasone with first dose of ondansetron. droperidol injection 0.625 mg (INAPSINE) 0.625 mg, intravenous, Every 6 hours PRN , nausea, vomiting, Starting Thu06/01/18 at 1539, For 48 hours, Total of 3 doses in 24 hour period. RASS must be -2 or higher to administer. Reassess for nausea o r vomiting after at least 10 minutes. If nausea or vomiting persists administer next ordered antiemetic medications (order for antiemetic medication administration ondansetron then droperidol then promethazine). fentaNYL injection (SUBLIMAZE) (CANCELED) 0730 (Given - Provider: Lupe Layton RWagner.)0732 (Given - Provider: Lupe Layton R.N.) Code/trauma/sedation medication, Starting on Thu06/01/18 at 0730 HYDROmorphone injection 0.25 mg (DILAUDID) 0.25 mg, intravenous, Every 2 hour PRN, severe pain or score 7-10 of 10, Starting Thu06/01/18 at 1539, For 2 doses, May administer if pain is greater than 7 after scheduled and PRN regimen exhausted. If pain remains greater than 7, notify primary service. menthol lozenge 1 lozenge 1 lozenge, oral, As needed, sore throat, Starting Thu06/01/18 at 1539 midazolam (PF) injection (VERSED) (CANCELED) 0728 (Giv en - Provider: Lupe Layton R.N.) Code/trauma/sedation medication, Starting on Thu06/01/18 at 0728 naloxone injection 0.2 mg (NARCAN) 0.2 mg, intravenous, As needed, respirat ory depression, Starting Thu06/01/18 at 1539, For respiratory rate less than 8 breaths per minute or RASS score of -3, - 4, -5. Apply oxygen to keep oxygen saturations greater than 90% and notify service. ondansetron (PF) injection 4 mg (ZOFRAN) 4 mg, intravenous, Every 6 hours PRN, na usea, vomiting, Starting Thu06/01/18 at 1539, For 48 hours, Reassess for nausea or vomiting after at least 10 minutes. If nausea or vomiting persists administer n ext ordered antiemetic medications (orde r for antiemetic medication administration ondansetron then droperidol then promethazine). oxyCODONE IR tablet 10 mg (ROXICODONE)(Linked Group 1) 1631 (See Alternative - Provider: Jayla Nagy R.N.)2009 (See Alternative - Provider: Jayla Nagy RWagner.) 0042 (See Alternative - Provider: Brigitte Lombardo R.N.)0428 (See Alternative - Provider: Brigitte Lombardo R.N.)0812 (See Alternative - Provider: Len Payan RSuresh)1159 (See Alternative - Provider: Len Payan R.Dom) 0008 (See Alternative - Provider: Lea Sanders R.NLa)0419 (See Alternative - Provider: Lea Sanders R.N.)0801 (Given - Provider: Janiya Greer RLaNLa) 10 mg, oral, Every 4 hours PRN, severe p ain or score 7-10 of 10, Starting on Thu06/01/18 at 1540, Second line therapy. If patient is greater than 7 after 2 hours, call service for new order. 1535 (See Alternati ve - Provider: Jayla Nagy RLaN.)2005 (See Alternative - Provider: Beverly KiserN.) oxyCODONE IR tablet 5 mg (ROXICODONE)(Linked Group 1) 1631 (Given - Provider: Jayla Nagy R.N.)2008 (Given - Provider: Beverly KiserN.) 0042 (Given - Provider: Brigitte Lombardo R.N.)0428 (Given - Provider: Brigitte Lombardo R.N.)0812 (Given - Provider: Len Payan R.N.)1159 (Given - Provider: Len Payan R.N.)1535 (Given - Provider: Sergo Kiser.N.) 0008 (Given - Provider: Lea Sanders R.N.)0419 (Given - Provider: Lea Sanders RSuresh)0801 (See Alternative - Provider: Janiya Greer RLaNLa) 5 mg, oral, Every 4 hours PRN, moderate pain or score 4-6 of 10, Starting on Thu06/01/18 at 1540, Second line therapy 2005 (Given - Pr ovider: Jayla Nagy R.NLa) polyethylene glycol powder packet 1 packet (MIRALAX) 1 packet, oral, Daily PRN, constipation, Starting Thu06/01/18 at 1539, Ordered sequence of administration: polyethylene glycol, then bisacodyl until BM achieved. Avoid mixing with starch-based thickened liquids. promethazine injection 6.25 mg (PHENERGAN) 6.25 mg, intravenous, Every 6 hours PRN, nausea, vomiting, Starting Thu06/01/18 at 1539, For 48 hours, RASS must be -2 or higher to administer. Reassess for nausea/vomiting after at least 10 minutes. If nausea or vomiting persists administer next ordered antiemetic medications (order for antiemetic medication administration ondansetron then droperidol then promethazine). scopolamine base 1 mg over 3 days 1 patch (TRANSDERM S STATOR TESTER) (CANCELED) 0701 (Medication Applied - Provider: Lupe Layton R.N.)1540 (Medication Removed - Provider: Jayla Nagy R.N. - Comment: Time automatically adjusted from order being discontinued) 1 patch, transdermal, Administer over 72 Hours, Once as needed, nausea, vomiting, Starting on Thu06/01/18 at 0639, For 1 dose, Pre-Op vancomycin injection (CANCELED) 0916 (Given - Provider: Fausto Hoffman D.O.) As needed, Starting on Thu06/01/18 at 0916, Intra-Op Linked Groups Order Group 1: oxyCODONE IR tablet 5 mg (ROXICODONE)Jump to med 5 mg, oral, Every 4 hours PRN, moderate pain or score 4-6 of 10, Starting on Thu06/01/18 at 1540
Second line therapy
Or oxyCODONE IR tablet 10 mg (ROXICODONE)Jump to med 10 mg, oral, Every 4 hours PRN, severe p ain or score 7-10 of 10, Starting on Thu06/01/18 at 1540
Second line therapy. If patient is greater than 7 after 2 hours, call service for new order.
documented in this encounter Care Teams [place] Relationship Specialty Start Date End Date Chastity Davidson M.D. PCP - General 03/19/17 01/11/20 documented as of this encounter
--- OUTSIDE RECORDS SUMMARY | 2022-08-31 10:06 | XMS_ITS | Encounter Summary ---
:1945 Author Organization [facility] Address [address] [place] [address] Care Team Providers Name Role Phone Chastity Davidson M.D. Primary Care Provider Unavailable Reason for Referral Physical Therapy (Routine) - Closed Specialty Diagnoses / Procedures Referred By Contact Refer red To Contact Physical Medicine and Diagnoses Aftercare Total Knee Arthroplasty Gabriela Hernandez [facility] Rehabilitation Procedures PT Evaluate and treat Gisele Wood.A.-CLa [address] [place] [address] Referral ID Status Reason Start Date Expiration Date Visits Requ ested Visits Authorized [id number] Closed 06/03/2018 06/03/2019 12 12 Reason for Visit Auth/Cert Specialty Diagnoses / Procedures Referred By Contact Refer red To Contact Diagnoses Follow Up Knee Replacement Status Post Procedures [place] ARTHRO KNEE CONDYLE&PLAT (TKA) ARTHROPLASTY REPLACEMENT TOTAL KNEE Referral ID Status Reason Start Date Expiration Date Visits Requ ested Visits Authorized [id number] 1 1 Encounter Details Date Type Department Care Team Description 06/01/2018 - Hospital Encounter [facility] Fausto Hoffman Knee Replacement Status Post (Primary Dx); 06/03/2018 Kym Freeman D.O. 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 Primary Care Providers: Chastity Davidson M.D. (General) [address] [place] [phone] Primary Care Provider Primary Care Provider Other [...] Case IDs Date Procedure Surgeon Location Status [id number] 8/28/18 ARTHROPLASTY REPLACEMENT TOTAL KNEE Fausto Hoffman D.O. [facility] OR Comp DISCHARGE DISPOSITION Home or Self Care [1] OUTPATIENT FOLLOW UP Future Appointments Date Time Provider Department Center 06/04/2018 7:00 AM Selwyn Nielson P.T., Charleen.PBruno [facility] 06/16/2018 3:15 PM Gabriela Hernandez P.A.-C. [facility] 07/05/2018 10:15 AM DX [facility] RM [address] DR SILVA DX [facility] 07/05/2018 11:00 AM Fausto Hoffman D.O. [facility] 09/08/2018 3:00 PM DX [facility] ORTHO RM 01 RAD DX [facility] 09/08/2018 3:30 PM Gabriela Hernandez P.A.-C. [facility] TEST RESULTS PENDING AT DISCHARGE DETAILS OF [...] of this encounter Progress Notes Ziyad Gavin P.T. - 06/03/2018 9:00 AM CDT Physical Therapy [...] 30 min Functional G-code Worksheet Nestor Frances P.TPadilla - 06/02/2018 1:03 PM CDT Physical Therapy [...] with the plan of care and goals. 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 Trace LEedema of right leg. Skin: [place], warm, dry and intact with no rashes [...] Spiritual Care Coordination Note Only: Pt. is [employer] [place] [employer] chris and pt. is a member of [facility], [place], [place]. Customer Service Receptionist Gregory is the health data analyst and the health data analyst is f/u. Ziyad Gavin P.T. - 06/01/2018 [...] knee arthroplasty that will take place at [facility] on 05/24/2018. REVIEW OF SYSTEMS See pertinent [...] TOTAL KNEE; Surgeon: Fausto Hoffman D.O.; Location[facility] ??? COLONOSCOPY N/A 02/01/2018 Procedure: COLONOSCOPY; Surgeon: Jazmyne Weaver M.D.; Location: [facility] GI LAB ??? CYST REMOVAL ??? ESOPHAGOGASTRODUODENOSCOPY N/A 02/01/2018 Procedure: ESOPHAGOGASTRODUODENOSCOPY; Surgeon: Jazmyne Weaver M.D.; Location: [facility] GI LAB ??? TONSILLECTOMY AND ADENOIDECTOMY [...] comments) Made my eyes worse ??? Neosporin (Pew-Avy-Dxead) [Yvsabect-Xwqrjdqkbc-Vtiozefpc] Other (see comments) ??? Tobramycin Other (see [...] Without redness, swelling, but trace edema. Skin: [place], warm, dry and intact with no rashes [...] Negative pH 6.0 5.0 - 8.0 Specific [place] 1.020 1.001 - 1.035 Urobilinogen 0.2 0.2 [...] 6:10 PM CDTAssociated Order(s): IP CONSULT TO HOSPITAL INTERNAL MEDICINE Date of admission: 06/01/2018 [...] TOTAL KNEE; Surgeon: Fausto Hoffman D.O.; Location: [facility] ??? COLONOSCOPY N/A 02/01/2018 Procedure: COLONOSCOPY; Surgeon: Jazmyne Weaver M.D.; Location: [facility] GI LAB ??? CYST REMOVAL ??? ESOPHAGOGASTRODUODENOSCOPY N/A 02/01/2018 Procedure: ESOPHAGOGASTRODUODENOSCOPY; Surgeon: Jazmyne Weaver M.D.; Location: [facility] GI LAB ??? TONSILLECTOMY AND ADENOIDECTOMY [...] comments) Made my eyes worse ??? Neosporin (Kvj-Uhl-Mnart) [Thohjuab-Vbgmghkueh-Bwrczedci] Other (see comments) ??? Tobramycin Other (see comments) Made my eyes worse Current Facility-Administered Medications Medication Dose Route Frequency Provider Last Rate Last Dose ??? acetaminophen tablet 1,000 mg (TYLENOL) 1,000 mg oral Q6H KEVEN Gabriela Hernandez P.A.-CLa 1,000mg at 06/01/18 1551 ??? aspirin tablet 325 mg 325 mg oral BID Gabriela Hernandez P.A.-C. ??? bisacodyl suppository 10 mg (DULCOLAX) 10 mg rectal Daily PRN Gabriela Hernandez P.A.-C. ??? calcium carbonate chewable tablet 400 mg of calcium (TUMS) 400 mg of calcium oral Q2H PRN Gabriela Hernandez P.A.-C. ??? [START ON 06/02/2018] calcium carbonate-vitamin D3 1,250 mg (500 mg calcium)- 200 unit per tablet 1 tablet 1 tablet oral Daily Gabriela Hernandez P.A.-C. ??? ceFAZolin in dextrose (iso-os) IVPB 2 g (ANCEF) 2 g intravenous Q8H Gabriela Hernandez, P.A.-C.200 mL/hr at 06/01/18 1223 2 g [...] (PRINIVIL,ZESTRIL) 5 mg oral Daily Mercy Mancuso, Miriam. ??? menthol lozenge 1 lozenge 1 lozenge oral PRN Gabriela Hernandez P.A.-C. ??? midazolam (PF) (VERSED) 1 mg/mL injection - ADS Override Pull ??? midazolam (PF) injection (VERSED) Code/Trauma/Sedation Anderson Brennan M.D. 2 mg at [id number] ??? [START ON 06/02/2018] jlvqkhskcevf-dbtt-CE-Ca-minerals 9 mg iron-400 mcg tablet 1 tablet [...] symmetric and 5/5. Distal pulses intact. Skin: [place], warm, dry and intact with no rashes [...] was consulted for further me dical management. #1 Follow Up Knee Replacement [...] RX . Reviewed cares and dc instructions Janiya Greer R.N. - 06/03/2018 10:57 AM [...] As expected Complications: None Description of Procedure: ASSISTANT WOMEN'S SOCCER COACH: Ileana Hernandez PA-C -The physician assistant account executive was necessary in the surgical case as described above. The presence of a skilled physician assistant account executive was integral for patient positioning, retraction, component [...] Implant Name Type Inv. Item Serial No. Banking Pin Adjuster Lot No. LRB No. Used Action CMNT BN HI VISC PMMA 40 - [id number] Bone Cement CMNT BN HI VISC PMMA 40 Fel[place]erto [id number] Right 1 Implanted CMNT BN HI VISC PMMA 40 - [id number] Bone Cement CMNT BN HI VISC PMMA 40 Aurora [id number] Right 1 Implanted PAT ATT MDLZD 35 - [id number] Knee Implant PAT ATT MDLZD 35 Depuy Spine [id number] Right 1 Implanted KN FEM ATT RT CMNT PS SZ-4 - [id number] Knee Implant KN FEM ATT RT CMNT PS SZ-4 Depuy Spine [id number] Right 1 Implanted BSPLT TIB ATT ROT SZ4 - [id number] Knee Implant BSPLT TIB ATT ROT SZ4 Depuy Synthes [id number] Right1 Implanted INS TIB ATT ROT PS SZ4 10 - [id number] Knee Implant INS TIB ATT ROT PS SZ4 10 Depuy Synthes [id number] Right 1 Implanted Intra-op Medications Date/Time Order [...] CBC with Differential (06/03/2018 7:03 AM CDT) [facility] Method Time Signature Hemoglobin 9.3 (L) 11.6 - 06/03/2018 [facility] 15.0 g/dL 7:20 AM CDT [facility] Hematocrit 28.9 (L) 35.5 - 06/03/2018 [facility] 44.9 % 7:20 AM CDT [facility] Erythrocytes 3.00 (L) 3.92 - 06/03/2018 [facility] 5.13 7:20 AM CDT HEALTH x10(12)/L [facility] MCV 96.3 78.2 - 06/03/2018 [facility] 97.9 fL 7:20 AM T [facility] RBC Distrib Width 14.6 12.2 - 06/03/2018 [facility] 16.1 % 7:20 AM CDT [facility] [place] [facility] Platelet Count 244 157 - 371 06/03/2018 [facility] x10(9)/L 7:20 AM T [facility] Leukocytes 6.7 3.4 - 9.6 06/03/2018 [facility] x10(9)/L 7:20 AM CDT [facility] Neutrophils 4.63 1.56 - 06/03/2018 [facility] 6.45 7:20 AM CDT HEALTH x10(9)/L [facility] Lymphocytes 0.96 0.95 - 06/03/2018 [facility] 3.07 7:20 AM CDT HEALTH x10(9)/L [facility] Monocytes 0.81 0.26 - 06/03/2018 [facility] 0.81 7:20 AM CDT HEALTH x10(9)/L [facility] Eosinophils 0.29 0.03 - 06/03/2018 [facility] 0.48 7:20 AM CDT HEALTH x10(9)/L [facility] Basophils 0.01 0.01 - 06/03/2018 [facility] 0.08 7:20 AM CDT HEALTH x10(9)/L [facility] Specimen Anatomical Collection Method Collection Time Receive d Time (Source) Location / / Volume Laterality Blood (Blood, 06/03/2018 7:03 AM 06/03/20 18 7:14 Venous) CDT AM CDT Gabriela Hernandez P.A.-C. LAB BLOOD ADD-ON Performing Organization Address City/State/ZIP Code Phon e Number [facility] [address] [place] [address] LAB (ABNORMAL) CBC with Differential (06/02/2018 6:44 AM CDT) [facility] Method Time Signature Hemoglobin 8.7 (L) 11.6 - 06/02/2018 [facility] 15.0 g/dL 7:06 AM [facility] Hematocrit 27.3 (L) 35.5 - 06/02/2018 [facility] 44.9 % 7:06 AM T [facility] Erythrocytes 2.81 (L) 3.92 - 06/02/2018 [facility] 5.13 7:06 AM CDT HEALTH x10(12)/L [facility] MCV 97.2 78.2 - 06/02/2018 [facility] 97.9 fL 7:06 AM [facility] LAB RBC Distrib Width 14.5 12.2 - 06/02/2018 [facility] 16.1 % 7:06 AM T [facility] Platelet Count 248 157 - 371 06/02/2018 [facility] x10(9)/L 7:06 AM T [facility] Leukocytes 5.0 3.4 - 9.6 06/02/2018 [facility] x10(9)/L 7:06 AM T [facility] Neutrophils 2.88 1.56 - 06/02/2018 [facility] 6.45 7:06 AM CDT HEALTH x10(9)/L [facility] Lymphocytes 1.17 0.95 - 06/02/2018 [facility] 3.07 7:06 AM CDT HEALTH x10(9)/L [facility] Monocytes 0.70 0.26 - 06/02/2018 [facility] 0.81 7:06 AM CDT HEALTH x10(9)/L [facility] Eosinophils 0.19 0.03 - 06/02/2018 [facility] 0.48 7:06 AM CDT HEALTH x10(9)/L [facility] Basophils 0.01 0.01 - 06/02/2018 [facility] 0.08 7:06 AM CDT HEALTH x10(9)/L [facility] Specimen Anatomical Collection Method Collection Time Receive d Time (Source) Location / / Volume Laterality Blood (Blood, 06/02/2018 6:44 AM 06/02/20 18 6:54 Venous) CDT AM CDT Gabriela Hernandez P.A.-C. LAB BLOOD ADD-ON Performing Organization Address City/State/ZIP Code Phon e Number [facility] [address] [place] [address] LAB DX Knee Right 2 View (06/01/2018 [...] Post - Primary Aftercare Total Knee Arthroplasty Aftercare Total Knee Arthroplasty Gastroesophageal Reflux Disease Hypertension Essential Primary Chronic Idiopathic Constipation documented in this encounter Admitting Diagnoses Diagnosis Follow Up Knee Replacement Status Post documented in this encounter Administered Medications Inactive Administered Medications - up to 3 most recent administrations Medication Order MAR Action Action Date Dose Rate Site acetaminophen tablet 1,000 mg Given 06/01/2018 7:04 AM CDT 1,000 mg (TYLENOL) 1,000 mg, oral, Once, On Thu06/01/18 at 0645, For 1 dose, Pre-Op acetaminophen tablet 1,000 mg (TYLENOL) Given 06/03/2018 6:13 AM CDT 1,000 mg 1,000 mg, oral, Every 6 hours scheduled, [...] Given 06/02/2018 8:12 AM CDT 1 tablet ceFAZolin in dextrose (iso-os) IVPB 2 g New Bag 06/01/2018 8:1 0 PM 2 g 200 mL/hr (ANCEF) CDT 2 g, intravenous, at 200 mL/hr, Administer over 30 Minutes, Every 8 hours, First dose on Thu06/01/18 at 1215, For 2 doses, First post-operative dose to be given 4 hours from last pre-operative/intra-operative dose. Dose: 1 gm for patients weighing less than 80 kg, 2 gm for patients weighing 80 kg or greater. premix, Drug Monitoring Program: Pharmacist to adjust medication order based on comorbities and indication., Indications: Prophylaxis, surgical New Bag 06/01/2018 12:23 PM CDT 2 g 200 mL/hr celecoxib capsule 200 mg (CeleBREX) Given 06/01/2018 7:04 AM CDT 200 mg 200 mg, oral, Once, On Thu06/01/18 at 0645, For 1 dose fentaNYL injection (SUBLIMAZE) Given 06/01/2018 7:32 AM CDT 50 mcg Code/trauma/sedation medication, Starting on Thu06/01/18 at 0730 Given 06/01/2018 7:30 AM CDT 50 mcg lisinopril tablet 5 mg (PRINIVIL,ZESTRIL ) Given 06/03/2018 8:01 AM CDT 5 mg 5 mg, oral, Daily, First dose on Thu06/02/18 at 0900 Given 06/02/2018 8:13 AM CDT 5 mg midazolam (PF) injection (VERSED) Given 06/01/2018 7:28 AM CDT 2 mg Code/trauma/sedation medication, Starting on Thu06/01/18 at 0728 dufcrcyewqwb-pofs-AL-Ca-minerals 9 mg Given 06/03/2018 8:01 AM C [...] PM CDT 75 mL/hr 75 mL/hr oxyCODONE 12 hr tablet 10 mg (OxyCONTIN) Given 06/01/2018 7:05 AM CDT 10 mg 10 mg, oral, Once, On Thu06/01/18 at 0645, For 1 dose, Pre-Op, On arrival to patient waiting area Swallow whole. Do NOT crush, chew, or split tablet. oxyCODONE IR tablet 10 mg (ROXICODONE) Given [...] Given 06/02/2018 6:15 AM CDT 40 mg scopolamine base 1 mg Medication Applied 06/01/2018 7:01 AM 1 patch Behind Left Ear over 3 days 1 patch CDT (TRANSDERM SCOP) 1 patch, transdermal, Administer over 72 Hours, Once as needed, nausea, vomiting, Starting on Thu06/01/18 at 0639, For 1 dose, Pre-Op sennosides-docusate sodium 8.6-50 mg per Given 06/03/2018 8:01 A M CDT 1 tablet tablet 1 tablet (SENOKOT-S) 1 tablet, oral, 2 times daily, First dose on Thu06/02/18 at 0900 Given 06/02/2018 8:06 PM CDT 1 tablet Given 06/02/2018 11:58 AM CDT 1 tablet documented in this encounter Active and Recently Administered Medications Times are shown in CDT. Scheduled Medication Order 06/01/2018 06/02/2018 06/03/2018 acetaminophen tablet 1,000 mg (TYLENOL) (COMPLETED) 07 04 (Given - Provider: Lupe Layton R.N.) 1,000 mg, oral, Once, On Thu06/01/18 at 0645, For 1 dose, Pre-Op acetaminophen tablet 1,000 mg (TYLENOL) 1551 (Given - Provider: Jayla Nagy R.N.) 0042 (Given - Provider: Brigitte Lombardo R.N.)0615 (Given - Provider: Brigitte Lombardo R.N.)1158 (Given - Provider: Len Payan R.N.)1801 (Given - Provider: Jayla Nagy R.N.) 0008 (Given - Provider: Lea Sanders R.N.)0613 (Given - Provider: Lea Sanders R.N.) 1,000 mg, oral, Every 6 hours scheduled, First dose on Thu at 1600 aspirin tablet 325 mg 2008 (Given - Provider: Jayla chua RLaNLa) 0813 (Given - Provider: Len Payan R.N.)2005 (Given - Provider: Jayla Nagy R.N.) 0801 (Given - Provider: Janiya bettencourt R.N.) 325 mg, oral, 2 times daily, First [...] 0808 (Given - Provider: Lei Ahmadi APRN, GAMING HOST) 2 g, intravenous, at 200 mL/hr, Administ [...] surgical celecoxib capsule 200 mg (CeleBREX) (COMPLETED) 703 ( Given - Provider: Lupe Layton R.N.) 200 mg, oral, Once, On Thu06/01/18 at 0645, For 1 dose EPINEPHrine 0.2 mg, ketorolac 30 mg, rop ivacaine (PF) 300 mg in NaCl 0.9% injection (COMPLETED) 899 (Due)0935 (Given - Provider: Bal Hernandez P.A.-C.) periarticular, Once, Thu06/01/18 at 0900 , For 1 dose, Intra-Op, Drug Monitoring Program: Pharmacist to adjust medication order based on comorbities and indication. lisinopril tablet 5 mg (PRINIVIL,ZESTRIL) 0813 (Given - Provider: Len Payan R.N.) 0801 (Given - Provider: Janiya bettencourt R.N.) 5 mg, oral, Daily, First dose on Thu06/02/18 at 0900 lmqkgffkbbsl-vnsc-ND-Ca-minerals 9 mg ir on-400 mcg tablet 1 tablet (THERAPEUTIC-M) 0812 (Given - Provider: Beverly CrawfordNLa) 0801 (Given - Provider: Janiya Greer R.N.) [...] mg (PROTONIX) 0615 (Given - Provider: Brigitte Lombardo RLaNLa) 0612 (Given - Provider: Lea Sanders RLaNLa) 40 mg, oral, Daily before breakfast, Fir st dose on Thu06/02/18 at 0700, Swallow whole. Do NOT crush, chew, or split tablet. sennosides-docusate sodium 8.6-50 mg per tablet 1 tablet (SE NOKOT-S) 1158 (Given - Provider: Len Payan RLaNLa)2005 (Given - Provider: Jayla Nagy RLaNLa) 0801 (Given - Provider: Janiya bettencourt RLaNLa) 1 tablet, oral, 2 times daily, First [...] infusion 1552 (New Bag - Provider: Jayla chua R.NLa) 0543 (New Bag - Provider: Brigitte Lombardo RLaN.)0619 (Rate/Dose Verify - Provider: Brigitte Lombardo R.N.) 75 mL/hr, intravenous, Continuous, Start ing on [...] mg of calcium, oral, Every 2 hour [place] N, indigestion, Starting Thu06/01/18 at 1539, Doses [...] (CANCELED) 0730 (Given - Provider: Lupe Layton R.N.)0732 (Given - Provider: Lupe Layton R.N.) Code/trauma/sedation [...] 1631 (See Alternative - Provider: Jayla Nagy R.N.)2008 (See Alternative - Provider: Jayla Nagy R.N.) 0042 (See Alternative - Provider: Brigitte Lombardo R.N.)0428 (See Alternative - Provider: Brigitte Lombardo R.N.)0812 (See Alternative - Provider: Len Payan R.N.)1159 (See Alternative - Provider: Len Payan R.N.) 0008 (See Alternative - Provider: Lea Sanders R.N.)0419 (See Alternative - Provider: Lea Sanders R.N.)0801 (Given - Provider: Janiya Greer R.N.) 10 mg, oral, Every 4 hours PRN, severe p ain or score 7-10 of 10, Starting on Thu06/01/18 at 1540, Second line therapy. If patient is greater than 7 after 2 hours, call service for new order. 153 (See Alternati ve - Provider: Jayla Nagy R.N.)2005 (See Alternative - Provider: Jayla Nagy R.N.) oxyCODONE IR tablet 5 mg (ROXICODONE)(Linked Group 1) 1631 (Given - Provider: Jayla Nagy R.N.)2008 (Given - Provider: Jayla Nagy R.N.) 0042 (Given - Provider: Brigitte Lombardo R.N.)0428 (Given - Provider: Brigitte Lombardo R.N.)0812 (Given - Provider: Len Payan R.N.)1159 (Given - Provider: Len Payan R.N.)1535 (Given - Provider: Jayla Nagy R.N.) 0008 (Given - Provider: Lea Sanders R.N.)0419 (Given - Provider: Lea Sanders R.N.)0801 (See Alternative - Provider: Beverly EscobedoNLa) 5 mg, oral, Every 4 hours PRN, moderate pain or score 4-6 of 10, Starting on Thu06/01/18 at 1540, Second line therapy 2005 (Given - Pr ovider: Jayla Nagy R.N.) polyethylene glycol powder packet 1 packet (MIRALAX) [...] over 3 days 1 patch (TRANSDERM S MULLING MACHINE OPERATOR) (CANCELED) 0701 (Medication Applied - Provider: Lupe Layton R.N.)1540 (Medication Removed - Provider: Jayla Nagy R.N. - Comment: Time automatically adjusted from order being discontinued) 1 patch, transdermal, Administer over 72 Hours, Once as needed, nausea, vomiting, Starting on Thu06/01/18 at 0639, For 1 dose, Pre-Op vancomycin injection (CANCELED) 0916 (Given - Provider: Fausto Hoffman D.O.) As needed, Starting Thu06/01/18 at 0916, Intra-Op Linked Groups Order [...] order.
documented in this encounter Care Teams Stroboscope Operator Relationship Specialty Start Date End Date Chastity Davidson M.D. PCP - General 03/19/17 01/11/20 documented as of this encounter
--- OUTSIDE RECORDS SUMMARY | 2022-08-31 10:06 | XMS_ITS | Encounter Summary ---
:1945 Author Organization [facility] Address [address] [place] [address] Care Team Providers Name Role Phone Chastity Davidson M.D. Primary Care Provider Unavailable Reason for Visit Reason Comments Med Refill Encounter Details Date Type Department Care Team Description 11/16/2018 Refill Department of Family Medicine Belen Emmanuel, L.P.N. 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 - 11/16/2018 8:37 AM WIGS SALESPERSON Last visit with you 05/17/18. SALESPERSON documented in this encounter Plan of Treatment Not on filedocumented as of this encounter Visit Diagnoses Not on filedocumented in this encounter Care Teams Forensic Pathologist Relationship Specialty Start Date End Date Chastity Davidson M.D. PCP - General 03/19/17 01/11/20 documented as of this encounter
--- OUTSIDE RECORDS SUMMARY | 2022-08-31 10:06 | XMS_ITS | Encounter Summary ---
:1945 Author Organization [facility] Address [address] [place] [address] Care Team Providers Name Role Phone Chastity Davidson M.D. Primary Care Provider Unavailable Reason for Visit Physical Therapy (Routine) - Canceled Specialty Diagnoses / Procedures Referred By Contact Refer red To Contact Diagnoses Aftercare Total Knee Arthroplasty Gabriela Hernandez [facility] Procedures PT Ongoing treatment P.A.-C. [address] [place] [address] Referral ID Status Reason Start Date Expiration Date Visits V isits Requested Authorized [id number] Canceled 06/04/2018 07/30/2018 99 11 Encounter Details Date Type Department Care Team Description 06/25/2018 Clinical Support Department of Physical Irena Hernandez ret, P.A.-C. Aftercare Total Knee Medicine and Selwyn Nielson, PBruno, D.P.T. 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 - 06/25/2018 10:00 AM CDT Physical Therapy Outpatient Treatment Note SUBJECTIVE Patient Name: Mary Jane Rockwell Referring Provider: Flower Villalba Rehab Diagnosis: 1. Aftercare Total Knee Arthroplasty Reason for Referral: patient is status post right TKA on 06/01/2018. Patient was discharged from hospital on 06/03/2018. Onset Date: 06/01/18 Payor: [facility] / Plan: [employer] HMO / Product Type: HMO / No Data Recorded Total Visit Count: 4 Visit Count since last G-Codes: 3 Pt comments: patient reports she tolerated last therapy session well and that she has seen a big improvement in pain and confidence going downstairs since last therapy. OBJECTIVE Pain: Pain Assessment Pain Score: 3 (Right knee) Ortho Exam TREATMENT Treatment today consisted of: Therapeutic Exercise: Warmup on NuStep 5 min to improve passive knee range of motion. Exercise - Position Standing Exercise 2: 6 in step step-up and side step x 10: With upper extremity support and without upper extremity support. Step-down and side step 4 in height x 10: With upper extremity support and without upper extremity support. 2 in step step-down without upper extremity support x 20 Six stairs in stair while x 4 reciprocal pattern ascending step to descending left leg leading. Assessment Clinical Impression: Decision to again focus on stairs secondary to patient still having difficulty navigating home. Patient required max verbal cues to correct RLE while navigating downstairs. Patient tends to kick right hip out while keeping right knee straight while descending stairs. By 4th set patient was able to perform with minimal cuing and decreased compensation from hip Clinical Decision Making: Low: no complicating factors, [...] Date: 08/13/18 Plan Continue to work on PROM and strengthening of RLE. Treatment/Interventions: Therapeutic exercise, Manual therapy, Neuromuscular re-education [...] Arthroplasty documented in this encounter Care Teams School Traffic Guard Relationship Specialty Start Date End Date Chastity Davidson M.D. PCP - General 03/19/17 01/11/20 documented as of this encounter
--- OUTSIDE RECORDS SUMMARY | 2022-08-31 10:06 | XMS_ITS | Encounter Summary ---
:1945 Author Organization [facility] Address [address] [place] [address] Care Team Providers Name Role Phone Chastity Davidson M.D. Primary Care Provider Unavailable Reason for Visit Physical Therapy (Routine) - Canceled Specialty Diagnoses / Procedures Referred By Contact Refer red To Contact Diagnoses Aftercare Total Knee Arthroplasty Gabriela Hernandez [facility] Procedures PT Ongoing treatment P.A.-C. [address] [place] [address] Referral ID Status Reason Start Date Expiration Date Visits V isits Requested Authorized [id number] Canceled 06/04/2018 07/30/2018 99 11 Encounter Details Date Type Department Care Team Description 06/28/2018 Clinical Support Department of Physical Irena Hernandez ret, P.A.-C. Aftercare Total Knee Medicine and Selwyn Nielson, PBruno, D.P.T. 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 - 06/28/2018 10:30 AM CDT Physical Therapy Outpatient Treatment Note SUBJECTIVE Patient Name: Mary Jane Rockwell Referring Provider: Flower Villalba Rehab Diagnosis: 1. Aftercare Total Knee Arthroplasty Reason for Referral: patient is status post right TKA on 06/01/2018. Patient was discharged from hospital on 06/03/2018. Onset Date: 06/01/18 Payor: [facility] / Plan: [employer] H[employer] / Product Type: HMO / No Data Recorded Total Visit Count: 5 Visit Count since last G-Codes: 4 Pt comments: patient reports that she was quite sore after last therapy session however she continues to try and work on ambulating and navigating stairs patient reports that she is now able to descendstairs however this still takes max concentration. OBJECTIVE Pain: Pain Assessment Pain Score: 4 (Right knee/thigh) Ortho Exam TREATMENT Treatment today consisted of: Therapeutic Exercise: Warmup on NuStep 5 min to improve passive knee range of motion. Squats to chair height and to 8 in height x 10 x 2 each 6 in step step-down intermittent upper extremity support using mirror and max verbal cuing x 10 x 2 Neuromuscular Re-education: 4 in candace without upper extremity support x 10 with RLE stance: Forward, side, retro Assessment Clinical Impression: Patient tolerated therapy session well. Patient continues to have difficulty with navigating downstairs however patient is now able to perform proper step- down without compensating in at the hip however this still continues max concentration on patient's part. Patient did fatigue with squats to 8 in height and with step-downs. Patient performed very well on balance exercises with stance on RLE CGA toSBA Clinical Decision Making: Low: no complicating factors, [...] Nielson P.T., D.P.T. Time Spent with Patient Neuromuscular Re-Education (min): 15 min Therapeutic Exercise (min): 15 min Time Calculation Total Timed Units (min): 30 min Total Treatment Time (min): 30 min Functional G-code Worksheet documented in this encounter Plan of Treatment Not on filedocumented as of this encounter Visit Diagnoses Diagnosis Aftercare Total Knee Arthroplasty documented in this encounter Care Teams Specimen Accessioner Relationship Specialty Start Date End Date Chastity Davidson M.D. PCP - General 03/19/17 01/11/20 documented as of this encounter
--- OUTSIDE RECORDS SUMMARY | 2022-08-31 10:06 | XMS_ITS | Encounter Summary ---
:1945 Author Organization [facility] Address [address] [place] [address] Care Team Providers Name Role Phone Chastity Davidson M.D. Primary Care Provider Unavailable Reason for Visit Reason Comments Follow-up right knee. patient is doing well. she does have a more pain this time around. Appointment Request (Routine) - Closed Specialty Diagnoses / Procedures Referred By Contact Refer red To Contact Orthopedic Surgery Referral ID Status Reason Start Date Expiration Date Visits Requ ested Visits Authorized [id number] Closed 05/10/2018 05/10/2019 1 1 Encounter Details Date Type Department Care Team Description 06/16/2018 Office [facility] Knee [facility] Surgery in A, P.A.-C. 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 - 06/16/2018 3:15 PM CDT REASON FOR CONSULT Postoperative followup right knee HISTORY OF PRESENT ILLNESS Mary Jane Rockwell is a 73 y.o. female who underwent a right total knee arthroplasty on 06/01/[address] Hoffman. Patient states they are doing well postoperatively. Upon discharge, patient was able to return home without issues. They have been ambulating with the use of a walker. Pain is controlled with the use of narcotic pain medications. States that her knee is more sore this time than her last replacement. They are not currently experiencing numbness, tingling to the effected limb. Her first physical therapy session is scheduled for the end of the week. Patient has not had any issues with incision drainage or healing to this point. No other concerns today. SURGICAL HISTORY Past Surgical History: Procedure Laterality Date ??? ARTHROPLASTY REPLACEMENT TOTAL KNEE Left 03/30/2018 Procedure: ARTHROPLASTY REPLACEMENT TOTAL KNEE; Surgeon: Fausto Hoffman D.O.; Location: [facility] ??? ARTHROPLASTY REPLACEMENT TOTAL KNEE Right 06/01/2018 Procedure: ARTHROPLASTY REPLACEMENT TOTAL KNEE; Surgeon: Fausto Hoffman D.O.; Location: [facility] ??? COLONOSCOPY N/A 02/01/2018 Procedure: COLONOSCOPY; Surgeon: Jazmyne Weaver M.D.; Location: [facility] ??? CYST REMOVAL ??? ESOPHAGOGASTRODUODENOSCOPY N/A 02/01/2018 Procedure: ESOPHAGOGASTRODUODENOSCOPY; Surgeon: Jazmyne Weaver M.D.; Location: [facility] ??? TONSILLECTOMY AND ADENOIDECTOMY N/A 1950 Tonsillectomy and adenoidectomy HOME MEDICATIONS Home Medications ACETAMINOPHEN (FOR_TYLENOL 8 HR) 650 MG ER TABLET Take 1,300 mg by mouth 2 (two) times a day. As needed ASPIRIN [address] TABLET Take 1 tablet (81 mg total) by mouth 2 (two) times a day. CALCIUM CARBONATE/VITAMIN D3 (CALCIUM WITH VITAMIN D ORAL) Take by mouth daily. LISINOPRIL (FOR_PRINIVIL,ZESTRIL) 5 MG TABLET Take 1 tablet (5 mg total) by mouth daily. MULTIVITAMIN CAPSULE Take by mouth daily. PANTOPRAZOLE (FOR_PROTONIX) 20 MG EC TABLET Take 1 tablet (20 mg total) by mouth daily. SOCIAL HISTORY Tobacco history is History Smoking Status ??? Former Smoker ??? Packs/day: 0.25 ??? Years: 35.00 ??? Types: Cigarettes Smokeless Tobacco ??? Never Used Comment: quit about 10 yrs ago . REVIEW OF SYSTEMS Constitutional: negative for chills, fever, nausea, vomiting. OBJECTIVE VITAL SIGNS BP 128/74 (06/16/18 1506) Temp (!) 35.7 ??C (06/16/18 1506) Pulse Resp SpO2 There is no height or weight on file to calculate BMI. LAB VALUES Lab Results Component Value Date [...] does answer all questions appropriately. SKIN/VASCULAR: The right lower extremity does appear well perfused. Dorsalis Pedis pulse is 2+ and capillary refill is <= 2 sec through all toes. Surgical site appearance: Intact. No significant erythema, ecchymosis, or concerns for infection. Calves are soft and nontender. MUSCULOSKELETAL: Attention was drawn to the patients right lower extremity. Patient demonstrates unaffected ability to perform active ankle dorsiflexion, plantar flexion, inversion, eversion, as well as flex and extend all toes. EHL and FHL intact. Range of motion lacking a few degrees from full extension. Flexion to 100??. Negative varus and valgus stress. NEUROLOGIC: Intact sensation to light touch through the deep peroneal, superficial peroneal, sural, saphenous, and tibial nerve distributions of the affected leg. DIAGNOSTIC RESULTS No results found. He likes to open the for IMPRESSION/ASSESSMENT/PLAN 1. Status post right total knee arthroplasty, date of surgery 06/01/2018 2. Status post left total knee arthroplasty, date of surgery 03/30/2018 Mary Jane Rockwell is a 73 y.o. female who is doing well and continuing to progress in their recovery as expected from their above stated procedure. According to the most recent radiographs of the operative extremity, the patients replacement is stable without any evidence of loosening, dislocation, o r acute fractures. On physical exam, the patient demonstrates no acute neuromuscular deficit to operative extremity. Surgical incision appears to be healing well without signs of active drainage, erythema, or concern for infection today. Therefore, surgical maryana were removed today and Steri-strips placed over the top of the incision. Wound care instructions: Surgical maryana were removed in office today by nursing staff and cleansedwith Betadine solution. Patient will begin performing daily wound care cleansing with soap and running water. Patient will avoid submersion of wound in areas such as hot tubs, lakes, baths and also avoid saunas and steam rooms for at least two more weeks. Patient was advised to contact our Clinic if they were to develop fevers, chills, nausea, or vomiting or in they begin to notice any redness, warmth, or purulent drainage from their surgical incision site. Plan/Follow up instructions: Mary Jane Rockwell will continue to have a full weight bearing status to the operative extremity and progress in their activities as tolerated. The patient may begin to wean away from their walker to a cane as tolerated. She will continue to work with physical therapy for strengthening and range of motion in their operative extremity. The patient is encourage to continueto ice and elevate the operative extremity as needed. She will followup in 1 month for repeat films and reevaluation for both her right and left knee. We did give her a refill of her narcotic pain medication today. Patient understood and agreed to the above plan. ADMINISTRATIVE/BILLING No Charge, post-operative visit. documented in this encounter Procedure Notes Shani Ratliff C.M.A. - 06/16/2018 3:15 PM CDTAssociated Order(s): SUTURE REMOVAL Post-Procedure Diagnose(s): Aftercare Total Knee Arthroplasty Suture removal Date/Time: 06/16/2018 4:03 PM Performed by: SHANI RATLIFF Authorized by: GABRIELA HERNANDEZ Pre-procedure details: Sutures were placed at [facility] facility: yes Indicaton: scheduled staple removal Location: Lower extremity Lower extremity location: Knee Knee location: Right knee Procedure details: Wound appearance: No signs of infection Number of maryana removed: 18 Post-procedure details: Procedure completed successfully: no Complications: no immediate complications Post-removal: Steri-Strips applied documented in this encounter Plan of Treatment Not on filedocumented as of this encounter Procedures Procedure Name Priority Date/Time Associated Diagnosis Comme nts SUTURE REMOVAL Routine 06/16/2018 3:15 PM Aftercare Total Knee Results for this CDT Arthroplasty procedure are i n the results section. documented in this encounter Results SUTURE REMOVAL (06/16/2018 3:15 PM CDT) Narrative [facility] - 06/16/2018 3:15 PM CDT Shani Ratliff, C.M.A. ? 06/16/2018 ??4:05 PM Suture removal Date/Time: 06/16/2018 4:03 PM Performed by: SHANI RATLIFF Authorized by: GABRIELA HERNANDEZ Pre-procedure details: ??Sutures were placed at [facility] facility: yes ?Indicaton: scheduled staple removal ?Location: ??Lower extremity ??Lower extremity location: ??Knee ??Knee location: ??Right knee Procedure details: ??Wound appearance: ??No signs of infec tion ??Number of maryana removed: ??18 Post-procedure details: ??Procedure completed successfully: no ?Complications: no immediate complicat ions ?Post-removal: ??Steri-Strips applied Gabriela Hernandez P.A.-C. PROCEDURE/MINOR SURGICAL OR DERABLES Performing Organization Address City/State/ZIP Code Phon e Number MMODAL MMODAL NA documented in this encounter Visit Diagnoses Diagnosis Aftercare Total Knee Arthroplasty - Prim magdi documented in this encounter Care Teams Certified Court Interpreter Relationship Specialty Start Date End Date Chastity Davidson M.D. PCP - General 03/19/17 01/11/20 documented as of this encounter
--- OUTSIDE RECORDS SUMMARY | 2022-08-31 10:06 | XMS_ITS | Encounter Summary ---
:1945 Author Organization [facility] Address [address] [place] [address] Care Team Providers Name Role Phone Chastity Davidson M.D. Primary Care Provider Unavailable Reason for Visit Physical Therapy (Routine) - Canceled Specialty Diagnoses / Procedures Referred By Contact Refer red To Contact Diagnoses Aftercare Total Knee Arthroplasty Gabriela Hernandez [facility] Procedures PT Ongoing treatment P.A.-C. [address] [place] [address] Referral ID Status Reason Start Date Expiration Date Visits V isits Requested Authorized [id number] Canceled 06/04/2018 07/30/2018 99 11 Encounter Details Date Type Department Care Team Description 07/06/2018 Clinical Support Department of Physical Irena Hernandez ret, P.A.-C. Aftercare Total Knee Medicine and Selwyn Nielson, PBruno, D.P.T. 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 - 07/06/2018 10:00 AM CDT Physical Therapy Outpatient Treatment Note SUBJECTIVE Patient Name: Mary Jane Rockwell Referring Provider: Flower Villalba Rehab Diagnosis: 1. Aftercare Total Knee Arthroplasty Reason for Referral: patient is status post right TKA on 06/01/2018. Patient was discharged from hospital on 06/03/2018. Onset Date: 06/01/18 Payor: [facility] / Plan: [employer] HMO / Product Type: HMO / No Data Recorded Total Visit Count: 7 Visit Count since last G-Codes: 6 Pt comments: patient reports that she tolerated last therapy session well and feels that knee continues to improve. She did have increased knee pain after last therapy session that lasted into the weekend. OBJECTIVE Pain: Pain Assessment Pain Score: 3 (Right knee) Ortho Exam TREATMENT Treatment today consisted of: Therapeutic Exercise: Warmup on NuStep 5 min to improve passive knee range of motion. Exercise - Position Seated Exercise: More Seated Exercises Seated Exercise 1: Warmup on NuStep and upright bike 5 min each for PROM and endurance. Leg press machine: BLE 60 lb x 20, RLE 60 lb x 10 x 2, heel raises 60 lb RLE x 20. Knee extension RLE 12.5 lb x 10 Standing Exercise: More Standing Exercises Standing Exercise 3: Green Thera-Band 40 ft x 5 sidestepping. Green Thera-Band x 40 hip abduction BLE. Green Thera-Band x 20 x 2 hip extension BLE Assessment Clinical Impression: Patient tolerated therapy session well. Decision to continue to work on strengthening for RLE quad hamstring and also hip glute med glute max. Patient had most difficulty with knee extension RLE reporting some pain by 10th repetition she also had increased hip pain with hip abduction BLE. Patient will continue to benefit from outpatient [...] on PROM, balance and strengthening of RLE. Treatment/Interventions: Therapeutic exercise, [...] Arthroplasty documented in this encounter Care Teams Tire Layer Relationship Specialty Start Date End Date Chastity Davidson M.D. PCP - General 03/19/17 01/11/20 documented as of this encounter
--- OUTSIDE RECORDS SUMMARY | 2022-08-31 10:06 | XMS_ITS | Encounter Summary ---
:1945 Author Organization [facility] Address [address] [place] [address] Care Team Providers Name Role Phone Chastity Davidson M.D. Primary Care Provider Unavailable Reason for Visit Reason Comments Med Refill Encounter Details Date Type Department Care Team Description 12/06/2018 Refill Department of Family Medicine, Belen Hopper, L.P.N. 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 - 12/06/2018 3:00 PM BOW REHAIRER Last visit with you 05/17/18. REHAIRER documented in this encounter Plan of Treatment Not on filedocumented as of this encounter Visit Diagnoses Not on filedocumented in this encounter Care Teams Department Manager Relationship Specialty Start Date End Date Chastity Davidson M.D. PCP - General 03/19/17 01/11/20 documented as of this encounter
--- OUTSIDE RECORDS SUMMARY | 2022-08-31 10:06 | XMS_ITS | Encounter Summary ---
:1945 Author Organization [facility] Address [address] [place] [address] Care Team Providers Name Role Phone Chastity Davidson M.D. Primary Care Provider Unavailable Reason for Visit Physical Therapy (Routine) - Canceled Specialty Diagnoses / Procedures Referred By Contact Refer red To Contact Diagnoses Aftercare Total Knee Arthroplasty Gabriela Hernandez [facility] Procedures PT Ongoing treatment P.A.-C. [address] [place] [address] Referral ID Status Reason Start Date Expiration Date Visits V isits Requested Authorized [id number] Canceled 06/04/2018 07/30/2018 99 11 Encounter Details Date Type Department Care Team Description 07/12/2018 Clinical Support Department of Physical Irena Hernandez ret, P.A.-C. Aftercare Total Knee Medicine and Selwny Nielson, PBruno, D.P.T. 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 - 07/12/2018 9:30 AM CDT Physical Therapy Outpatient Treatment Note SUBJECTIVE Patient Name: Mary Jane Rockwell Referring Provider: Flower Villalba Rehab Diagnosis: 1. Aftercare Total Knee Arthroplasty Reason for Referral: patient is status post right TKA on 06/01/2018. Patient was discharged from hospital on 06/03/2018. Onset Date: 06/01/18 Payor: [facility] / Plan: [employer] HMO / Product Type: HMO / No Data Recorded Total Visit Count: 9 Visit Count since last G-Codes: 8 Pt comments: patient reports that she tolerated last therapy session well and that posterior knee felt better after therapy. She reports that yesterday she rule to and from [place] using RLE and irritated back of knee again. OBJECTIVE Pain: Pain Assessment Pain Score: 3 (Right knee) Ortho Exam TREATMENT Treatment today consisted of: Therapeutic Exercise: Warmup on NuStep 5 min to improve passive knee range of motion. Hamstring curl machine BLE 30 lb x 20, RLE 30 lb x5, RLE 15 lb x 10. Prolonged stretch hamstring machine 2 minutes x3 Bilateral RDL 7lbs x20. Single RDL 7lbs x20 Hmatsign curls x20 Assessment Clinical Impression: Patient tolerated therapy session well. To focus on RLE hamstring secondary to patient still having pain/weakness. Patient tolerated to all exercises very well she did feel a stretch on hamstring machine however when trying to perform stretching in seated or standing patient does not feel any stretch. Patient will continue to benefit from outpatient [...] Nielson P.T., D.P.T. Time Spent with Patient Manual Therapy (min): 10 min Therapeutic Exercise (min): 20 min Time Calculation Total Timed Units (min): 30 min Total Treatment Time (min): 30 min Functional G-code Worksheet documented in this encounter Plan of Treatment Not on filedocumented as of this encounter Visit Diagnoses Diagnosis Aftercare Total Knee Arthroplasty documented in this encounter Care Teams Netting Weaver Relationship Specialty Start Date End Date Chastity Davidson M.D. PCP - General 03/19/17 01/11/20 documented as of this encounter
--- OUTSIDE RECORDS SUMMARY | 2022-08-31 10:06 | XMS_ITS | Encounter Summary ---
:1945 Author Organization [facility] Address [address] [place] [address] Care Team Providers Name Role Phone Chastity Davidson M.D. 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 documented in this encounter Results ANESTHESIOLOGY IMAGE EXAM (06/01/2018 7:20 AM CDT) Specimen (Source) Anatomical Collection Method Collection Time Re ceived Time Location / / Volume Laterality 06/01/2018 7:20 AM CDT Narrative [facility] - 06/01/2018 7:42 AM CDT This order has been created and auto-finalized to support the import of images acquired without order. The clini robert documentation to support these images can be found on the encounter umm t produced images. Provider Not In System IMG NON RAD IMAGING PROCEDUR ES Performing Organization Address City/State/ZIP Code Phon e Number [facility] NA documented in this encounter Visit Diagnoses Not on filedocumented in this encounter Care Teams Food And Beverage Lead Relationship Specialty Start Date End Date Chastity Davidson M.D. PCP - General 03/19/17 01/11/20 documented as of this encounter
--- OUTSIDE RECORDS SUMMARY | 2022-08-31 10:06 | XMS_ITS | Encounter Summary ---
:1945 Author Organization [facility] Address [address] [place] [address] Care Team Providers Name Role Phone Chastity Davidson M.D. Primary Care Provider Unavailable Reason for Visit Physical Therapy (Routine) - Canceled Specialty Diagnoses / Procedures Referred By Contact Refer red To Contact Diagnoses Aftercare Total Knee Arthroplasty Gabriela Hernandez [facility] Procedures PT Ongoing treatment P.A.-C. [address] [place] [phone] Referral ID Status Reason Start Date Expiration Date Visits V isits Requested Authorized [id number] Canceled 06/04/2018 07/30/2018 99 11 Encounter Details Date Type Department Care Team Description 06/22/2018 Clinical Support Department of Physical Irena Hernandez ret, P.A.-C. Aftercare Total Knee Medicine and Selwyn Nielson, PBruno, D.P.T. 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 - 06/22/2018 9:00 AM CDT Physical Therapy Outpatient Treatment Note SUBJECTIVE Patient Name: Mary Jane Rockwell Referring Provider: Flower Villalba Rehab Diagnosis: 1. Aftercare Total Knee Arthroplasty Reason for Referral: patient is status post right TKA on 06/01/2018. Patient was discharged from hospital on 06/03/2018. Onset Date: 06/01/18 Payor: [facility] / Plan: [employer] HMO / Product Type: HMO / No Data Recorded Total Visit Count: 3 Visit Count since last G-Codes: 2 Pt comments: patient tolerated last therapy session well. She reports that she continues to be noncompliant with home exercise program and reports she is very fearful of descending stairs with trustingRLE OBJECTIVE Pain: Pain Assessment Pain Score: 3 (Right knee) Ortho Exam TREATMENT Treatment today consisted of: Therapeutic Exercise: Warmup on NuStep 5 min to improve passive knee range of motion. Exercise - Position Standing Exercise: More Standing Exercises Standing Exercise 2: 6 in step step-up and side step x 10: With upper extremity support and without upper extremity support. Step-down and side step 4 in height x 10: With upper extremity support and without upper extremity support. 2 in step step-down without upper extremity support x 20 Assessment Clinical Impression: Patient arrived late to therapy session. Decision to focus on strengthening RLE while working on confidence of navigating stairs at home. Patient relies heavily on upper extremity support when descending steps. Patient reports increased pain at right knee lateral aspect 4/10 pain. Patient required maxverbal tactile and mirror feedback cues in order to perform stairs without compensating. Clinical Decision Making: Low: no complicating factors, [...] Time Spent with Patient Therapeutic Exercise (min): 20 min Time Calculation Total Timed Units (min): 20 min Total Treatment Time (min): 20 min Functional G-code Worksheet documented in this encounter Plan of Treatment Not on filedocumented as of this encounter Visit Diagnoses Diagnosis Aftercare Total Knee Arthroplasty documented in this encounter Care Teams Fire Ranger Relationship Specialty Start Date End Date Chastity Davidson M.D. PCP - General 03/19/17 01/11/20 documented as of this encounter
--- OUTSIDE RECORDS SUMMARY | 2022-08-31 10:06 | XMS_ITS | Encounter Summary ---
:1945 Author Organization [facility] Address [address] [place] [address] Care Team Providers Name Role Phone Chastity Davidson M.D. Primary Care Provider Unavailable Reason for Visit Physical Therapy (Routine) - Canceled Specialty Diagnoses / Procedures Referred By Contact Refer red To Contact Diagnoses Aftercare Total Knee Arthroplasty Gabriela Hernandez [facility] Procedures PT Ongoing treatment P.A.-C. [address] [place] [address] Referral ID Status Reason Start Date Expiration Date Visits V isits Requested Authorized [id number] Canceled 06/04/2018 07/30/2018 99 11 Encounter Details Date Type Department Care Team Description 06/18/2018 Clinical Support Department of Physical Irena Hernandez ret, P.A.-C. Aftercare Total Knee Medicine and Selwyn Nielson, PBruno, D.P.T. 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 - 06/18/2018 1:30 PM CDT Physical Therapy Outpatient Treatment Note SUBJECTIVE Patient Name: Mary Jane Rockwell Referring Provider: Flower Villalba Rehab Diagnosis: 1. Aftercare Total Knee Arthroplasty Reason for Referral: patient is status post right TKA on 06/01/2018. Patient was discharged from hospital on 06/03/2018. Onset Date: 06/01/18 Payor: [facility] / Plan: [employer] HMO / Product Type: HMO / No Data Recorded Total Visit Count: 2 Visit Count since last G-Codes: 1 Pt comments: patient returns outpatient physical therapies since initial eval on 06/04/2018. Patient reports that she had not been performing any exercises or stretches since initial eval. She reports that right knee has been a little bit more painful than left knee however she reports overall right knee is doing fair. OBJECTIVE Pain: Pain Assessment Pain Score: 3 (Right knee) Ortho Exam TREATMENT Treatment today consisted of: Therapeutic Exercise: Warmup on NuStep 5 min to improve passive knee range of motion. Step-up 4 in step x 10 RLE. Sit to stands x 20 without upper extremity support. Split squat right leg leading x 10 with railing. LAQ 5 lb ankle weight x 10. Seated high knee marching RLE x 10 5 lb ankle weight. Manual Therapy: Other Manual Therapy: PROM and therapy 0?? from full knee extension 105?? flexion RLE. Following techniques were used: Prolonged stretch, patient lead stretch, therapist lead stretch, and contract relax. Assessment Clinical Impression: Decision to keep therapy light today secondary to patient reporting that she has not performed any exercises or stretches since surgery. Although she has not been performing any home exercise program range of motion is fair with 0-105 degrees before stretching. After stretching patient was 110?? flexion. Patient did report muscle soreness and fatigue on right thigh after performing light therapeutic exercise will see how patient responds next therapy session Clinical Decision Making: Low: no complicating factors, [...] Time Spent with Patient Manual Therapy (min): 15 min Therapeutic Exercise (min): 15 min Time Calculation Total Timed Units (min): 30 min Total Treatment Time (min): 30 min Functional G-code Worksheet documented in this encounter Plan of Treatment Not on filedocumented as of this encounter Visit Diagnoses Diagnosis Aftercare Total Knee Arthroplasty documented in this encounter Care Teams Patient Educator Relationship Specialty Start Date End Date Chastity Davidson M.D. PCP - General 03/19/17 01/11/20 documented as of this encounter
--- OUTSIDE RECORDS SUMMARY | 2022-08-31 10:06 | XMS_ITS | Encounter Summary ---
:1945 Author Organization [facility] Address [address] [place] [address] Care Team Providers Name Role Phone Chastity Davidson M.D. Primary Care Provider Unavailable Encounter Details Date Type Department Care Team Description 09/08/2018 Hospital Encounter Department of Fausto Hoffman Osteoarthritis Radiology, Dawson Sulema Kirby [facility], in [address] [place] [phone] [place], [place] [phone] (Work) [phone] Social History Tobacco Use Types Packs/Day Years Used Date Smoking Tobacco: Former Cigarettes 0.3 35 Smokeless Tobacco: Never Comments: quit about 10 yrs ago Alcohol Use Standard Drinks/Week Comments Yes 3 (1 standard drink = 0.6 oz pure 2x or so per month 1 drink each alcohol) time Sex Assigned at Date Recorded 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 As needed CALCIUM CARBONATE/VITAMIN Take by mouth daily. 0 11/13/2009 D3 (CALCIUM WITH VITAMIN D ORAL) multivitamin capsule Take by mouth daily. 0 11/[address] tablet Take 1 tablet (81 mg 90 tablet 11 12/07/2018 total) by mouth 2 (two) times a day. HYDROcodone-acetaminophen Indication: 60 tablet 0 8 12/07/2018 (NORCO) 5-325 mg per Prolonged Acute tabletIndications: Pain/Traumatic Prolonged Acute Injury. 1-2 tabs PO Pain/Traumatic Injury Q6H PRN lisinopril Take 1 tablet (5 mg 90 tablet 3 10/12/201711/16 (for_PRINIVIL,ZESTRIL) 5 total) by mouth mg tablet daily. oxyCODONE (ROXICODONE) 5 Take 1-2 tablets 60 tablet 0 06/1612/07/2018 mg immediate release (5-10 mg total) by tabletIndications: mouth every 4 (four) Prolonged Acute hours as needed for Pain/Traumatic Injury moderate pain or score 4-6 of 10 Indication: Prolonged Acute Pain/Traumatic Injury. pantoprazole Take 1 tablet (20 mg 90 tablet 3 01/08/2018 (for_PROTONIX) 20 mg EC total) by mouth tablet daily. sennosides-docusate Take 1 tablet by 30 tablet 0 06/16/2018 12/07/2018 sodium (SENOKOT-S) 8.6-50 mouth at bedtime as mg per tablet needed for constipation. traMADol (ULTRAM) 50 mg Take 1 tablet (50 mg 30 tablet 0 12/07/2018 tabletIndications: total) by mouth Prolonged Acute every 4 (four) hours Pain/Traumatic Injury as needed for pain Indications: Prolonged Acute Pain/Traumatic Injury. documented as of this encounter Plan of Treatment Not on filedocumented as of this encounter Procedures Procedure Name Priority Date/Time Associated Diagnosis Comme nts DX KNEE RIGHT RAD - Routine 09/08/2018 2:37 Primary Results fo r STANDING 1-2 (most inpatients PM EXTENSION WORK INSTRUCTOR Osteoarthritis Knee this procedure VIEWS and all Right are in the outpatients) results section. documented in this encounter Results DX Knee Right Standing 1-2 Views (09/08/2018 2:37 PM EXTENSION WORK INSTRUCTOR) Anatomical Region Laterality Modality Lower Extremity, Knee, Musculoskeletal RST LOS, Right Digital Radiography Musculoskeletal ARZ LOS, Muskuloskeletal FLA LOS Specimen (Source) Anatomical Collection Method Collection Time Re ceived Time Location / / Volume Laterality 09/08/2018 3:20 PM EXTENSION WORK INSTRUCTOR Impressions 09/08/2018 3:21 PM EXTENSION WORK INSTRUCTOR IMPRESSION: Status post bilateral knee r eplacement. Narrative 09/08/2018 3:21 PM EXTENSION WORK INSTRUCTOR EXAM: DX KNEE RIGHT STANDING 1-2 VIEWS COMPARISON: 07/05/2018 FINDINGS: Bilateral knee prostheses are unchanged in appearance, with no evidence of fracture, dislocation or pro sthesis loosening. The surrounding soft tissues appear normal. Procedure Note Wai Ralph M.D. - 09/08/2018Format ting of this note might be different from the original. EXAM: DX KNEE RIGHT STANDING 1-2 VIEWS COMPARISON: 07/05/2018 FINDINGS: Bilateral knee prostheses are unchanged in appearance, with no evidence of fracture, dislocation or pro sthesis loosening. The surrounding soft tissues appear normal. IMPRESSION: Status post bilateral knee r eplacement. Fausto [facility] PROCE KIN documented in this encounter Visit Diagnoses Diagnosis Primary Osteoarthritis Knee Right documented in this encounter Care Teams Ent Consultant Relationship Specialty Start Date End Date Chastity Davidson M.D. PCP - General 03/19/17 01/11/20 documented as of this encounter
--- OUTSIDE RECORDS SUMMARY | 2022-08-31 10:06 | XMS_ITS | Encounter Summary ---
:1945 Author Organization [facility] Address [address] [place] [address] Care Team Providers Name Role Phone Chastity Davidson M.D. Primary Care Provider Unavailable Encounter Details Date Type Department Care Team Description 10/07/2018 Hospital Encounter Department of K[facility] Davidson Mammogram Radiology in Chastity Albrecht M.D. 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 documented in this encounter Results BI Breast Screening Bilateral (10/07/2018 1:15 PM ALUM MIXER) Anatomical Region Laterality Modality Breast, Breast Imaging RST LOS, Breast Imaging ARZ LOS, [place] [address] Bilateral Mammography Imaging FLA LOS Specimen (Source) Anatomical Collection Method Collection Time Re ceived Time Location / / Volume Laterality 10/07/2018 1:37 PM ALUM MIXER Impressions 10/07/2018 1:38 PM ALUM MIXER IMPRESSION: ??Benign. RECOMMENDATION: ??Annual Screening Mammo gram ASSESSMENT: ??BI-RADS: 2: Benign. Narrative 10/07/2018 1:38 PM ALUM MIXER EXAM: ??BI BREAST SCREENING BILATERAL Current study was evaluated with a Compu RunRev Aided Detection (CAD) system. INDICATION: ??Screening mammogram. COMPARISON: ??Prior exam(s) were availab le and reviewed for comparison. DENSITY: ??c. The breast(s) are heteroge neously dense, which may obscure small masses. FINDINGS: ??No mammographic findings of malignancy. Scattered benign calcifications again noted throughout ea ch breast. Procedure Note Wai Ralph M.D. - 10/07/2018Format ting of this note might be different from the original. EXAM: BI BREAST SCREENING BILATERAL Current study was evaluated with a Compu RunRev Aided Detection (CAD) system. INDICATION: Screening mammogram. COMPARISON: Prior exam(s) were available and reviewed for comparison. DENSITY: c. The breast(s) are heterogene ously dense, which may obscure small masses. FINDINGS: No mammographic findings of ma lignancy. Scattered benign calcifications again noted throughout ea ch breast. IMPRESSION: Benign. RECOMMENDATION: Annual Screening Mammogr am ASSESSMENT: BI-RADS: 2: Benign. Chastity Davidson M.D. IMG BI PROCEDURES documented in this encounter Visit Diagnoses Diagnosis Screening Mammogram Breast Cancer documented in this encounter Care Teams Precision Millwright Relationship Specialty Start Date End Date Chastity Davidson M.D. PCP - General 03/19/17 01/11/20 documented as of this encounter
--- OUTSIDE RECORDS SUMMARY | 2022-08-31 10:06 | XMS_ITS | Encounter Summary ---
:1945 Author Organization [facility] Address [address] [place] [address] Care Team Providers Name Role Phone Chastity Davidson M.D. Primary Care Provider Unavailable Encounter Details Date Type Department Care Team Description 07/05/2018 Hospital Encounter Department of Fausto Hoffman Primary Osteoarthritis Knee Left; Radiology, Kym Kirby D.O. 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 documented in this encounter Results DX Knee Bilateral Standing 2 Views (07/05/2018 10:15 AM CDT) Anatomical Region Laterality Modality Lower Extremity, Knee, Musculoskeletal RST LOS, Bilateral Digital Radiography Musculoskeletal ARZ LOS, Muskuloskeletal FLA LOS Specimen (Source) Anatomical Collection Method Collection Time Re ceived Time Location / / Volume Laterality 07/05/2018 10:20 AM CDT Impressions 07/05/2018 10:21 AM CDT IMPRESSION: Stable bilateral total knee arthroplasties. Narrative 07/05/2018 10:21 AM CDT EXAM: DX KNEE BILATERAL STANDING 2 VIEWS COMPARISON: Right knee of 06/01/2018 and left knee of 05/10/2018. FINDINGS: There are small knee joint eff usions bilaterally. There is no change in appearance or alignment of bilateral total knee arthroplasties. There is no evidence of loosening or dislocation. Procedure Note Pierre Marquez Jr., M.D. - 2017 EXAM: DX KNEE BILATERAL STANDING 2 VIEWS COMPARISON: Right knee of 06/01/2018 and left knee of 05/10/2018. FINDINGS: There are small knee joint eff usions bilaterally. There is no change in appearance or alignment of bilateral total knee arthroplasties. There is no evidence of loosening or dislocation. IMPRESSION: Stable bilateral total knee arthroplasties. Fausto [facility] ARIANNE SANDERSON documented in this encounter Visit Diagnoses Diagnosis Primary Osteoarthritis Knee Left Primary Osteoarthritis Knee Right Primary Osteoarthritis Knee Bilateral documented in this encounter Care Teams Mold Shifter Relationship Specialty Start Date End Date Chastity Davidson M.D. PCP - General 03/19/17 01/11/20 documented as of this encounter
--- OUTSIDE RECORDS SUMMARY | 2022-08-31 10:06 | XMS_ITS | Encounter Summary ---
:1945 Author Organization [facility] Address [address] [place] [address] Care Team Providers Name Role Phone Chastity Davidson M.D. Primary Care Provider Unavailable Reason for Visit Physical Therapy (Routine) - Closed Specialty Diagnoses / Procedures Referred By Contact Refer red To Contact Physical Medicine and Diagnoses Aftercare Total Knee Arthroplasty Gabriela Hernandez [facility] Procedures PT Evaluate and treat [place] P.A.-CLa [address] [place] [phone] Referral ID Status Reason Start Date Expiration Date Visits Requ ested Visits Authorized [id number] Closed 06/03/2018 06/03/2019 12 12 Encounter Details Date Type Department Care Team Description 06/04/2018 Comprehensive Visit Department of Gabriela Hernandez P.ALa-CLa Aftercare Total Physical Medicine and Selwyn Nielson, PLaTLa, D.P.T. 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 - 06/04/2018 7:00 AM CDT Consults Physical Therapy Evaluation and Treatment Outpatient By co-signing this note, the provider certifies the therapy being provided to this patient is reasonable and necessary for the diagnosis or treatment of this patient. SUBJECTIVE Patient's Name: Mary Jane Rockwell Referring Provider: Flower Villalba Rehab Diagnosis: 1. Aftercare Total Knee Arthroplasty Reason for Referral: patient is status post right TKA on 06/01/2018. Patient was discharged from hospital on 06/03/2018. Onset Date: 06/01/18 Payor: [employer] / Plan: [employer] HMO / Product Type: HMO / PT Next Certification Date: 08/27/18 PERTINENT MEDICAL / SURGICAL HISTORY: Patient Active Problem List Diagnosis ??? Hypertension Benign Renovascular ??? Reflux Esophageal ??? Arthropathy ??? Hemorrhage Gastrointestinal ??? Anemia ??? Screening Cancer Colon ??? Primary Osteoarthritis Knee Right ??? Primary Osteoarthritis Knee Left ??? Aftercare Total Knee Arthroplasty ??? Follow Up Knee Replacement Status Post ??? Gastroesophageal Reflux Disease ??? Hypertension Essential Primary ??? Chronic Idiopathic Constipation Past Surgical History: Procedure Laterality Date ??? ARTHROPLASTY REPLACEMENT TOTAL KNEE Left 03/30/2018 Procedure: ARTHROPLASTY REPLACEMENT TOTAL KNEE; Surgeon: Fausto Hoffman D.O.; Location: [facility] ??? ARTHROPLASTY REPLACEMENT TOTAL KNEE Right 06/01/2018 Procedure: ARTHROPLASTY REPLACEMENT TOTAL KNEE; Surgeon: Fausto Hoffman D.O.; [facility] ??? COLONOSCOPY N/A 02/01/2018 Procedure: COLONOSCOPY; Surgeon: Jazmyne Weaver M.D.; Location: [facility] ??? CYST REMOVAL ??? ESOPHAGOGASTRODUODENOSCOPY N/A 02/01/2018 Procedure: ESOPHAGOGASTRODUODENOSCOPY; Surgeon: Jazmyne Weaver M.D.; Location: [facility] ??? TONSILLECTOMY AND ADENOIDECTOMY N/A 1950 Tonsillectomy and adenoidectomy Prior Hospitalization: 06/01/2018 to 06/03/2018 Total Visit Count: 1 Visit Count since last G-Codes: 1 Mary Jane Rockwell is a 73 y.o. female who presents to outpatient physical therapy for evaluation. Her symptoms consist of status post right TKA, which began 06/01/18. Overall she reports her status is improving . History of Present Illness/Current Level of Function: Patient is status post right TKA on 06/01/2018. Patient was discharged from hospital on 06/03/2018. She reports that she has had no difficulty returning home and that she is able to navigate around home independently. Currently patient requires use of FWW for all ambulation and transfers. Aggravating Factors: Prolonged positions or initial movement Relieving Factors: Movement ice medication Previous Treatments: None Occupational Profile Prior Level of Function: Patient had left TKA 2 months prior to this current surgery patient was ambulating without assistive device and was independent with all activities prior to recent surgery Patient/Caregiver Goals: Improve mobility strength and PROM of right knee. OBJECTIVE REVIEW OF SYSTEMS General ROS: negative for - chills, fatigue or fever PHYSICAL EXAM Pain: Pain Assessment Pain Score: 5 - Moderate pain (Right knee) Observation/Inspection: Patient is a pleasant 73-year-old female in no acute distress incision is covered by island bandage she has [id number] swelling around right knee. Range of Motion: ROM - Lower Extremity Screen: Impaired right (5?? from full knee extension to 104??flexion) Strength:Strength - Lower Extremity Screen: (Right knee not tested secondary to postsurgical gross strength 3+/5) Neuro Screen/Motor Control: Patient denies any numbness or tingling in RLE. Ambulation/Balance: Device: Front wheeled walker decreased stance on RLE antalgic gait pattern. Ortho Exam Outcome Measures: Interpretation: [employer] Osteoarthritis Index (WOMAC): 0% equates to no pain, stiffness or difficulty with functional activities. Eval score 26% TREATMENT Treatment today consisted of: Therapeutic Exercise: Exercise - Position Position Exercise Comment: Initiated and practiced home exercise program: X 20 x 2; sit to stands without upper extremity support, step-up RLE. Stretching x5 x5 minute holds x2: Seated knee flexion, seated knee extension, supine knee flexion/knee extension hip at 90?? Assessment Clinical Impression: Ms. Rockwell presents to physical therapy with signs and symptoms consistent with right TKA on 06/01/2018. Overall patient reports that symptoms are improving. Rehab Potential: Ms. Rockwell has Excellent potential to achieve established physical therapy goalswithin the time frame outlined below, provided she actively participates in her physical therapy treatment plan and home program. Complicating Factors: Personal Factors: Age Clinical Presentation: Stable Examination elements: 1-2 Clinical Decision Making Complexity: Low: no complicating factors, 1-2 eval elements, [...] of function PT Goal #3 Date: 08/13/18 The severity of Ms. Rockwell???s functional limitation will be re-assessed within the next 20 visits. Plan Ms. Rockwell was educated regarding evaluative findings, diagnosis, prognosis, potential risks and benefits of rehabilitation interventions. A collaborative effort was used to establish goals and planof care. She was informed of her right to make decisions regarding her care, including refusal of examination or treatment or selection of therapy services from another provider if desired. The treatment plan may be progressed or modified based upon her response to treatment. Treatment Plan: Start of Plan of Care: 06/04/2018 PT Next Certification Date: 08/27/18 Number of Visits: up to 20 visits PT Duration: 10 weeks PT Frequency: 1-2x/week Treatment interventions may include: Therapeutic exercise, Manual therapy, Neuromuscular re-education Selwyn Nielson PPierre., D.P.T. Time Spent with Patient PT Evaluation (min): 20 min Therapeutic Exercise (min): 30 min Time Calculation Total Timed Units (min): 30 min Total Treatment Time (min): 50 min Functional G-code Worksheet Functional Assessment Tool Used: womac Functional Limitation: Mobility: Walking and moving around Mobility: Walking and Moving Around Current Status (G8978): At least 20 percent but less than 40 percent impaired, limited or restricted Mobility: Walking and Moving Around Goal Status (G8979): 0 percent impaired, limited or restricted documented in this encounter Plan of Treatment Not on filedocumented as of this encounter Visit Diagnoses Diagnosis Aftercare Total Knee Arthroplasty documented in this encounter Care Teams Fruit [employer] 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 PCP - General 03/19/17 01/11/20 documented as of this encounter
--- OUTSIDE RECORDS SUMMARY | 2022-08-31 10:06 | XMS_ITS | Encounter Summary ---
:1945 Author Organization [facility] Address [address] [place] [address] Care Team Providers Name Role Phone Chastity Davidson M.D. Primary Care Provider Unavailable Reason for Visit Physical Therapy (Routine) - Canceled Specialty Diagnoses / Procedures Referred By Contact Refer red To Contact Diagnoses Aftercare Total Knee Arthroplasty Gabriela Hernandez [facility] Procedures PT Ongoing treatment P.A.-C. [address] [place] [phone] Referral ID Status Reason Start Date Expiration Date Visits V isits Requested Authorized [id number] Canceled 06/04/2018 07/30/2018 99 11 Encounter Details Date Type Department Care Team Description 07/16/2018 Clinical Support Department of Physical Irena Hernandez ret, P.A.-C. Aftercare Total Knee Medicine and Selwyn Nielson, PBruno, D.P.T. 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 - 07/16/2018 9:30 AM CDT Physical Therapy Outpatient Treatment Note SUBJECTIVE Patient Name: Mary Jane Rockwell Referring Provider: Flower Villalba Rehab Diagnosis: 1. Aftercare Total Knee Arthroplasty Reason for Referral: patient is status post right TKA on 06/01/2018. Patient was discharged from hospital on 06/03/2018. Onset Date: 06/01/18 Payor: [facility] / Plan: [employer] HMO / Product Type: HMO / No Data Recorded Total Visit Count: 10 Visit Count since last G-Codes: 9 Pt comments: patient reports that she tolerated last therapy session well and that posterior knee felt better after therapy. OBJECTIVE Pain: Pain Assessment Pain Score: [...] muscle fatigue at end of therapy session that hamstrings buttock and quads BLE patient continues to improve with balance [...] Time (min): 30 min Functional G-code Worksheet Functional Assessment Tool Used: Subjective Functional Limitation: Mobility: Walking and moving around Mobility: Walking and Moving Around Current Status (G8978): At least 1 percent but less than 20 percent impaired, limited or restricted Mobility: Walking and Moving Around Goal Status (G8979): 0 percent impaired, limited or restricted documented in this encounter Plan of Treatment Not on filedocumented as of this encounter Visit Diagnoses Diagnosis Aftercare Total Knee Arthroplasty documented in this encounter Care Teams Vp Medical Relationship Specialty Start Date End Date Chastity Davidson M.D. PCP - General 03/19/17 01/11/20 documented as of this encounter
--- OUTSIDE RECORDS SUMMARY | 2022-08-31 10:06 | XMS_ITS | Encounter Summary ---
:1945 Author Organization [facility] Address [address] [place] [address] Care Team Providers Name Role Phone Chastity Davidson M.D. 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 Reason for Visit Reason Comments Follow-up BL TKA DOS:06/01/18 Follow-up Encounter Details Date Type Department Care Team Description 09/08/2018 Office Visit Department of [facility] Knee [facility]opedic Surgery in [place], [facility] ([place], [place]) [address] [place] [phone] Social History Tobacco Use Types Packs/Day Years Used Date Smoking Tobacco: Former Cigarettes 0.3 35 Smokeless Tobacco: Never Comments: quit about 10 yrs ago Alcohol Use Standard Drinks/Week Comments Yes 3 (1 standard drink = 0.6 oz pure 2x or so per month 1 drink each alcohol) time Sex Assigned at Date Recorded 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 - 09/08/2018 3:30 PM CST REASON FOR VISIT Postoperative followup left total knee arthroplasty on March 30, 2018 and right total knee arthroplasty on June 01, 2018 HISTORY OF PRESENT ILLNESS Mary Jane Rockwell is a 73 y.o. female who underwent a left total knee arthroplasty on March 30, 2018 and right total knee arthroplasty on June 01, [address] Hoffman. Patient states she is doing well postoperatively . She has completed physical therapy and now participates in a exercise program that i nvolves total body workout. She denies any numbness, tingling and/or fever. At this point she denieshaving any pain except right lateral aspect of knee only when driving. SURGICAL HISTORY Past Surgical History: Procedure Laterality Date ??? ARTHROPLASTY REPLACEMENT TOTAL KNEE Left 03/30/2018 Procedure: ARTHROPLASTY REPLACEMENT TOTAL KNEE; Surgeon: Fausto Hoffman D.O.; Location: [facility] ??? ARTHROPLASTY REPLACEMENT TOTAL KNEE Right 06/01/2018 Procedure: ARTHROPLASTY REPLACEMENT TOTAL KNEE; Surgeon: Fausto Hoffman D.O.; Location: [facility] ??? COLONOSCOPY N/A 02/01/2018 Procedure: COLONOSCOPY; Surgeon: Jazmyne Weaver M.D.; Location: [facility] ??? CYST REMOVAL ??? ESOPHAGOGASTRODUODENOSCOPY N/A 02/01/2018 Procedure: ESOPHAGOGASTRODUODENOSCOPY; Surgeon: Jazmyne Weaver M.D.; Location: [facility] ??? TONSILLECTOMY AND ADENOIDECTOMY [...] VITAMIN D ORAL) Take by mouth daily. HYDROCODONE-ACETAMINOPHEN (NORCO) 5-325 MG PER TABLET Indication: Prolonged Acute Pain/Traumatic Injury. 1-2 tabs PO Q6H PRN LISINOPRIL (FOR_PRINIVIL,ZESTRIL) 5 MG TABLET Take 1 tablet (5 mg total) by mouth daily. MULTIVITAMIN CAPSULE Take by mouth daily. OXYCODONE (ROXICODONE) 5 MG IMMEDIATE RELEASE TABLET Take 1-2 tablets (5-10 mg total) by mouth every 4 (four) hours as needed for moderate pain or score 4-6 of 10 Indication: Prolonged Acute Pain/Traumatic Injury. PANTOPRAZOLE (FOR_PROTONIX) 20 MG EC TABLET Take 1 tablet (20 mg total) by mouth daily. SENNOSIDES-DOCUSATE SODIUM (SENOKOT-S) 8.6-50 MG PER TABLET Take 1 tablet by mouth at bedtime as needed for constipation. TRAMADOL (ULTRAM) 50 MG TABLET Take 1 tablet (50 mg total) by mouth every 4 (four) hours as needed for pain Indications: Prolonged Acute Pain/Traumatic Injury. SOCIAL HISTORY Tobacco history is History Smoking Status ??? Former Smoker ??? Packs/day: 0.25 ??? Years: 35.00 ??? Types: Cigarettes Smokeless Tobacco ??? Never Used Comment: quit about 10 yrs ago . REVIEW OF SYSTEMS Constitutional: negative for chills, fever, nausea, vomiting. OBJECTIVE VITAL SIGNS BP Temp 36.4 ??C (09/08/18 1532) Pulse Resp SpO2 There is no height or weight on file to calculate BMI. PHYSICAL EXAM Orthopedic Physical Examination GENERAL: Patient appears alert, active, comfortable, and in no acute distress. The patient is alert and oriented to person, place, and time and able to follow commands. does answer all questions appropriately. SKIN/VASCULAR: The left and right lower extremity does appear well perfused. Dorsalis Pedis pulse is2+ and capillary refill is <= 2 sec through all toes. Surgical site appearance: Intact. No significant erythema, ecchymosis, or concerns for infection. Calves are soft and nontender. MUSCULOSKELETAL: Attention was drawn to the patients left and right lower extremities. Patient demonstrates unaffected ability to perform active ankle dorsiflexion, plantar flexion, inversion, eversion, as well as flexion and extension of all toes. EHL and FHL intact. Range of motion of the knee demons trates approximately 0 -130?? with flexion/extension. NEUROLOGIC: Intact sensation to light touch through the deep peroneal, superficial peroneal, sural, saphenous, and tibial nerve distributions of the affected leg. DIAGNOSTIC RESULTS Dx Knee Right Standing 1-2 Views Result Date: 09/08/2018 Impression: IMPRESSION: Status post bilateral knee replacement. IMPRESSION/ASSESSMENT/PLAN 1. Status post left total knee arthroplasty, date of surgery March 30, 2018 2. Status post right total knee arthroplasty, date of surgery June 01, 2018 Mary Jane Rockwell is a 73 y.o. female who is doing well and continuing to progress in her recoveryas expected from the above stated procedures. On physical exam, the patient demonstrates no acute neuromuscular deficit to the operative extremities. Her surgical incisions appear to be healing well. Today we provided and discussed knee exercises to help with her right knee pain she experiences duringdriving. Overall pleased with her progress. Plan/Follow up instructions: Mary Jane Rockwell will follow up in 3 months for her right knee with repeat imaging. Patient understood and agreed to the above plan. TER PUMP OPERATOR documented in this encounter Plan of Treatment Scheduled Referrals Name Type Priority Associated Order Schedule Diagnoses Orthopedic Surgery Outpatient Referral Routine Ex pected: office visit 12/07/2018 (clinic) (Approximate), Expires: 09/08/2021 documented as of this encounter Results DX Knee Right Standing 1-2 Views (12/08/2018 2:09 PM BOOSTER PUMP OPERATOR) Anatomical Region Laterality Modality Lower Extremity, Knee, Musculoskeletal RST LOS, Right Digital Radiography Musculoskeletal ARZ LOS, Muskuloskeletal FLA LOS Specimen (Source) Anatomical Collection Method Collection Time Re ceived Time Location / / Volume Laterality 12/08/2018 4:02 PM BOOSTER PUMP OPERATOR Impressions 12/08/2018 4:04 PM BOOSTER PUMP OPERATOR IMPRESSION: Stable postoperative finding s status post right knee arthroplasty. Narrative 12/08/2018 4:04 PM BOOSTER PUMP OPERATOR EXAM: DX KNEE RIGHT STANDING 1-2 VIEWS COMPARISON: 09/08/2018. FINDINGS: Postoperative findings status post bilateral knee arthroplasty. Small right suprapatellar joint effusion simil ar to previous. No acute fracture or destructive osseous abnormality. Procedure Note Lne Hillman M.D. - 12/08/2018For matting of this [...] Arthroplasty documented in this encounter Care Teams Nurse Consultant Relationship Specialty Start Date End Date Chastity Davidson M.D. PCP - General 03/19/17 01/11/20 documented as of this encounter
--- OUTSIDE RECORDS SUMMARY | 2022-08-31 10:06 | XMS_ITS | Encounter Summary ---
:1945 Author Organization [facility] Address [address] [place] [address] Care Team Providers Name Role Phone Chastity Davidson M.D. Primary Care Provider Unavailable Reason for Visit Auth/Cert Specialty Diagnoses / Procedures Referred By Contact Refer red To Contact Diagnoses Follow Up Knee Replacement Status Post Procedures TX ARTHRO KNEE CONDYLE&PLAT (TKA) ARTHROPLASTY REPLACEMENT TOTAL KNEE Referral ID Status Reason Start Date Expiration Date Visits Requ ested Visits Authorized [id number] 1 1 Encounter Details Date Type Department Care Team Description 06/01/2018 Anesthesia Event [facility] OR Yony Mason M.D. [address] [place] [address] 1025 [facility] Moe Banda, D.OLa [address] [place] [address] [place] [address] 52 Anesthesia Record Procedure Summary Procedure Name Responsible Anesthesia Start Anesthesia Stop Anesthesiologist Time Time ARTHROPLASTY Yony Mason M.D. 06/01/18 0742 06/01/18 0957 REPLACEMENT TOTAL KNEE (Right) Events Date Time Event Comment 06/01/2018 0717 0741 In Room 0742 An Start Machine/Equipmen t Checked Infection Precautions Foll owed Procedure/Site Verified NPO Sta tus Verified Supine Standard ASA Mon itors Applied 0810 Turnover to Proceduralist 0819 Proc Start 0951 Proc Fin 0951 Turnover to ANE Staff 0952 an stop data 0953 Out of Room 0957 An End I completed my h andoff to the receiving staff during [facility] we 1. Identified the patient 2. Ident ified the responsible provider 3. Revi ewed the pertinent medical history 4. Discu ssed the surgical course 5. Reviewed intra-o p anesthesia management and issues during an esthesia 6. Set expectations for post-procedure period 7. Allowed opportun ity for questions and acknowledgement of understanding. Name Total midazolam 1 mg/mL injection 1 mg propofol 10 mg/mL infusion 458.81 mg bupivacaine-EPINEPHrine PF 0.5%-1:200,000 injection 30 mL ceFAZolin in dextrose (iso-os) IVPB 2 g (ANCEF) 2 g bupivacaine PF 0.75% injection 1.8 mL morphine PF 1 mg/mL Regional 0.15 mg tranexamic acid 1 g in NaCl 0.9% IVPB 2 g ketamine 10 mg/mL injection 30 mg phenylephrine 100 mcg/mL injection 600 mcg lactated ringers 1,900 mL Agents No agents on file. Blood No blood administrations on file. Lines, Drains, and Airways Type Details Placement Removal (RETIRED) Incision 03/30/18; 1004; Knee; 03/30/18 1004 by 0000 by Left; AMEYA MILLER Linell R, Olimpia Rainey I., CAR.; 03/31/20; Resolved R.N. R.N. Peripheral IV Placement Date: 06/01/18; 06/01/18 0715 by 06/03 1022 by Placement Time: 714; Lupe Layton Vanotte rloo, Catheter Size: 20 G; R.N. Janiya R.N. Orientation: Left; Location: Wrist; Site Prep: Chlorhexidine (Preferred); Technique: Anatomical landmarks; Inserted by: Lc Ahmadi CRNA; Insertion Attempts: 1; Removal Date: 06/03/18; Removal Time: 1022 (RETIRED) Incision 06/01/18; 0931; Knee; 06/01/18 0931 by 0000 by Right; TANYA AQC 3.5X12, Lizette Ward John son, Janice I., DRSG CAST PAD WEBRIL 6X4 R.N. R.N. 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 - 06/01/2018 10:56 AM CDT Patient: Mary Jane Rockwell Procedure Summary Date: 06/01/18 Room / Location: [place] [address] [id number] / [facility] OR Anesthesia Start: 741 Anesthesia Stop: 956 Procedure: ARTHROPLASTY REPLACEMENT TOTAL KNEE (Right ) Diagnosis: Follow Up Knee Replacement Status Post (Follow Up Knee Replacement Status Post [Z09]) Provider: Fausto Hoffman D.O. Responsible Provider: Yony Mason M.D. Anesthesia Type: regional ASA Status: 2 Anesthesia Type: regional Last vitals BP 111/71 (06/01/18 1050) Temp 36.2 ??C (06/01/18 1001) Pulse 72 (06/01/18 1050) Resp 14 (06/01/18 1050) SpO2 97 % (06/01/18 1050) Anesthesia Post Evaluation 06/01/2018 10:56 AM Patient Disposition: general care unit Cardiovascular status: hemodynamics (HR & BP) acceptable Respiratory status: patent airway with spontaneous effort Temperature: normothermic Oxygen requirements: room air Level of consciousness: awake Pain score: pain adequately controlled and/or at baseline Post Op nausea/vomiting: none Hydration status: euvolemic Anesthesia Procedure Notes - Yony Mason M.D. - 06/01/2018 7:39 AM CDT Associated Order(s): ANESTHESIA REGIONAL BLOCK Regional Block Date/Time: 06/01/2018 7:39 AM Performed by: YONY MASON Authorized by: YONY MASON Location: Pre Op / PACU [place] protocol: All relevant documentation and testing were reviewed and available. All required blood products, implants, devices and/or special equipment were made available as applicable. The pre-procedure verification was conducted, the correct site was marked if required, and the procedural time out was conducted prior to performing the procedure and confirmed in a procedural pause: yes Pre-procedure details: Appropriate hand hygiene, gown, cap, mask, protective eyewear, sterile gloves, skin preparation, sterile drape, and strict aseptic technique were utilized as applicable for the procedure.: yes Skin prep: chlorhexidine Sedation/Anesthesia (see MAR for exact dosages): Anesthesia method: local infiltration Procedure details: Block type: pain block Block type comment: Post-Op pain block at request of surgeon Positioning: supine Block technique: ultrasound guided Ultrasound image: image acquired and saved Adductor canal blockade were identified. Local anesthetic was injected under direct visualization and good circumferential spread was observed. No pain on injection or needle advancement. No complications noted patient tolerated procedure well. Injection technique: single injection Needle type: insulated Gauge: 20G Test dose: yes- negative test dose Incremental injection of local anesthetic with aspiration every:5cc Pain with needle advancement or injection of local anesthetic: no Post-procedure details: Procedure completed successfully: successful procedure Other complications: none Anesthesia Preprocedure Evaluation - Yony Mason M.D. - 06/01/2018 7:17 AM CDT Anesthesia Pre-Evaluation Pertinent components of the patient's history including current problem list, medical history, surgical history, family history, social history, medications and allergies were reviewed and updated as appropriate. The patient was examined and the Pre-op diagnosis, planned procedure, and H&P were reviewed and remain unchanged. PROBLEM LIST Relevant Problems HEME (+) Anemia OBJECTIVE PHYSICAL EXAMINATION Airway (HEENT) Mallampati: II TM Distance: >3 FB Neck ROM: Full Cardiovascular Rhythm: Regular Rate: Normal Cardiovascular Assessment: Normal Functional Capacity: >4 METS Pulmonary Pulmonary Assessment: Clear Neurological Normal Dental Normal General / Constitutional Normal Abdomen Normal Musculoskeletal Normal Skin Normal ASSESSMENT / PLAN ANESTHESIA PLAN ASA: 2 Anesthesia Plan: regional Patient seen and allergies reviewed; anesthesia plan and risks discussed directly with patient / legal guardian, or through an per diem interpreter; patient evaluated and approved for anesthesia / sedation. The use of blood products not discussed documented in this encounter Plan of Treatment Not on filedocumented as of this encounter Procedures Procedure Name Priority Date/Time Associated Comments Diagnosis MC ANE NERVE BLOCK Routine 06/01/2018 7:39 AM Res ults for this WITH ULTRASOUND CDT procedure ar e in the results section. TX US GUIDE PLC NDL Routine 06/01/2018 7:39 AM Re sults for this CDT procedure are i n the results section. TX INJ ANES FEM Routine 06/01/2018 7:39 AM Result s for this NERVE CDT procedure are i n the results section. documented in this encounter Results TX INJ ANES FEM NERVE, TX US GUIDE PLC NDL, MC ANE NERVE BLOCK WITH ULTRASOUND (06/01/2018 7:39 AM CDT) Narrative Yony Mason M.D. - 06/01/2018 7:39 A M CDT Yony Mason M.D. ? 06/01/2018 ??7:39 AM Regional Block Date/Time: 06/01/2018 7:39 AM Performed by: YONY MASON Authorized by: YONY MASON Location: Pre Op / PACU [place] protocol: All relevant documentation and testing w ere reviewed and available. All required blood products, implants, devic es and/or special equipment were made available as applicable. The pre-pr ocedure verification was conducted, the correct site was marked i f required, and the procedural time out was conducted prior to performi ng the procedure and confirmed in a procedural pause: yes ?? Pre-procedure details: Appropriate hand hygiene, gown, cap, mas k, protective eyewear, sterile gloves, skin preparation, sterile drape, and strict aseptic technique were utilized as applicable for the procedure .: yes ?? Skin prep: chlorhexidine Sedation/Anesthesia (see MAR for exact d osages): Anesthesia method: local infiltration Procedure details: Block type: pain block ?? Block type comment: Post-Op pain block a t request of surgeon Positioning: supine ?? Block technique: ultrasound guided ?? Ultrasound image: image acquired and helen ed Adductor canal blockade were identified. Local anesthetic was injected under direct visualization and good circ umferential spread was observed. No pain on injection or needle advanceme nt. No complications noted patient tolerated procedure well. Injection technique: single injection Needle type: insulated Gauge: 20G Test dose: yes- negative test dose ?? Incremental injection of local anestheti c with aspiration every:5cc Pain with needle advancement or injectio n of local anesthetic: no ?? Post-procedure details: Procedure completed successfully: succes sful procedure Other complications: none Procedure Note Yony Mason M.D. - 06/01/2018 7:39 A M CDT Regional Block Date/Time: 06/01/2018 7:39 AM Performed by: YONY MASON Authorized by: YONY MASON Location: Pre Op / PACU [place] protocol: All relevant documentation and testing w ere reviewed and available. All required blood products, implants, devices and/or special equipment were made available as applicable. The pre-procedure verification was conducted, the correct site was marked i f required, and the procedural time out was conducted prior to performing the procedure and confirmed in a procedural pause: yes Pre-procedure details: Appropriate hand hygiene, gown, cap, mas k, protective eyewear, sterile gloves, skin preparation, sterile drape, and strict aseptic technique were utilized as applicable for the procedure.: yes Skin prep: chlorhexidine Sedation/Anesthesia (see MAR for exact d osages): Anesthesia method: local infiltration Procedure details: Block type: pain block Block type comment: Post-Op pain block a t request of surgeon Positioning: supine Block technique: ultrasound guided Ultrasound image: image acquired and helen ed Adductor canal blockade were identified. Local anesthetic was injected under direct visualization and good circumferential spread was observed. No pain on injection or needle advancement. No complications noted patient tolerated procedure well. Injection technique: single injection Needle type: insulated Gauge: 20G Test dose: yes- negative test dose Incremental injection of local anestheti c with aspiration every:5cc Pain with needle advancement or injectio n of local anesthetic: no Post-procedure details: Procedure completed successfully: succes sful procedure Other complications: none Yony Mason M.D. PROCEDURE/MINOR SURGICAL ORD ERABLES documented in this encounter Visit Diagnoses Not on filedocumented in this encounter Administered Medications Inactive Administered Medications - up to 3 most recent administrations Medication Order MAR Action Action Date Dose Rate Site bupivacaine PF 0.75 % (7.5 mg/mL) Given 06/01/2018 8:01 AM CDT 1 .8 mL injection (MARCAINE) As needed, Starting on Thu06/01/18 at 0801, Anesthesia Intra-op bupivacaine-EPINEPHrine (PF) 0.5 %-1:200,000 Given 8 7:35 AM CDT 10 mL injection (MARCAINE w/EPI) As needed, Starting on Thu06/01/18 at 0733, Anesthesia Intra-op Given 06/01/2018 7:34 AM CDT 10 mL Given 06/01/2018 7:33 AM CDT 10 mL ceFAZolin in dextrose (iso-os) IVPB 2 g (ANCEF) Given 06/01/2018 8:08 AM CDT 2 g 2 g, intravenous, at 200 mL/hr, Administer over 30 Minutes, Once, On Thu06/01/18 at 0630, For 1 dose, Intra-Op, Preoperatively within 1 hour prior to surgical incision premix, Drug Monitoring Program: Pharmacist to adjust medication order based on comorbities and indication., Indications: Prophylaxis, surgical ketamine injection (KETALAR) Given 06/01/2018 9:12 AM CDT 10 mg As needed, Starting on Thu06/01/18 at 0829, Anesthesia Intra-op Given 06/01/2018 8:52 AM CDT 10 mg Given 06/01/2018 8:29 AM CDT 10 mg lactated ringers New Bag 06/01/2018 8:40 AM CDT 20 mL/hr, intravenous, Continuous, Starting on Thu06/01/18 at 0645, Pre-Op New Bag 06/01/2018 7:42 AM CDT midazolam (PF) injection (VERSED) Given 06/01/2018 8:16 AM CDT 1 mg intravenous, As needed, Starting on Thu06/01/18 at 0816, Anesthesia Intra-op morphine (PF) injection Regional (DURAMO RPH) Given 06/01/2018 8:01 AM CDT 0.15 mg As needed, Starting on Thu06/01/18 at 0801, Anesthesia Intra-op phenylephrine injection Given 06/01/2018 9:29 AM CDT 100 mcg As needed, Starting on Thu06/01/18 at 0856, Anesthesia Intra-op Given 06/01/2018 9:25 AM CDT 100 mcg Given 06/01/2018 9:16 AM CDT 100 mcg propofol 10 mg/mL infusion Rate/Dose 06/01/2018 9:03 35 mcg/kg/min 1 8.06 (DIPRIVAN) Change AM CDT mL/hr intravenous, Continuous Infusion: Per Instructions PRN, Starting on Thu06/01/18 at 0806, Anesthesia Intra-op Rate/Dose Change 06/01/2018 8:52 AM CDT 45 mcg/kg/min 23.2 mL/hr Rate/Dose Change 06/01/2018 8:35 AM CDT 55 mcg/kg/min 28.4 mL/hr tranexamic acid 1 g in NaCl 0.9% IVPB Bolus 06/01/2018 9:29 AM CDT 1 g 1 g, intravenous, at 150 mL/hr, Administer over 20 Minutes, Once, On Thu06/01/18 at 0630, For 1 dose, Intra-Op, Administer in OR upon induction Mini-Bag Plus bag, Drug Monitoring Program: Pharmacist to adjust medication order based on comorbities and indication. New Bag 06/01/2018 8:16 AM CDT 1 g documented in this encounter Care Teams Groundsman Relationship Specialty Start Date End Date Chastity Davidson M.D. PCP - General 03/19/17 01/11/20 documented as of this encounter
--- OUTSIDE RECORDS SUMMARY | 2022-08-31 10:06 | XMS_ITS | Encounter Summary ---
:[address] [facility] Address [address] [place] [address] Care Team Providers Name Role Phone Chastity Davidson M.D. Primary Care Provider Unavailable Reason for Visit Reason Comments Follow-up Follow-up Encounter Details Date Type Department Care Team Description 07/05/2018 Office Visit Department of Gabriela Hernandez P.A.-C . Follow Up Knee Orthopedic Surgery in Fausto Hoffman D.O. 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 - 07/05/2018 11:00 AM CDT SUBJECTIVE Pain reported: CHIEF COMPLAINT / REASON FOR VISIT Mary Jane Rockwell is a 73 y.o. female who presents for follow-up of No chief complaint on file. and is under the care of Chastity Davidson M.D.. HISTORY OF PRESENT ILLNESS Patient is a very pleasant 73-year-old female presented for revaluation of her right knee. She is status post right total knee arthroplasty on 06/01/2018. Today she states she is doing quite well. She is happy with her progress. She still has pain, primarily at night. She does continue to take pain medication for this. She has been working with therapy and is happy with her improvement. No new concerns today. No numbness paresthesias. No fevers or chills. Her surgical history is notable for: Past Surgical History: Procedure Laterality Date ??? ARTHROPLASTY REPLACEMENT TOTAL KNEE Left 03/30/2018 Procedure: ARTHROPLASTY REPLACEMENT TOTAL KNEE; Surgeon: Fausto Hoffman D.O.; Location: [facility] ??? ARTHROPLASTY REPLACEMENT TOTAL KNEE Right 06/01/2018 Procedure: ARTHROPLASTY REPLACEMENT TOTAL KNEE; Surgeon: Fausto Hoffman D.O.; Location: [facility] ??? COLONOSCOPY N/A 02/01/2018 Procedure: COLONOSCOPY; Surgeon: Jazmyne Weaver M.D.; Location: [facility] ??? CYST REMOVAL ??? ESOPHAGOGASTRODUODENOSCOPY N/A 02/01/2018 Procedure: ESOPHAGOGASTRODUODENOSCOPY; Surgeon: Jazmyne Weaver M.D.; Location: [facility] ??? TONSILLECTOMY AND ADENOIDECTOMY N/A 1950 Tonsillectomy and adenoidectomy The following portions of the patient's history were reviewed and updated as appropriate: allergies,current medications, family history, medical history, social history, surgical history and problem list. REVIEW OF SYSTEMS All other systems reviewed and are negative. OBJECTIVE PHYSICAL EXAM Ortho Exam Extremities: My attention then 1st directed toward the right knee. Incision is well healed. No surrounding erythema or ecchymosis. Normal postoperative appearance. She does lack, still, 1 or 2?? full extension. Flexion to 110??. knee is stable to varus valgus stress testing.. Negative Homans. She has intact EHL FHL dorsiflexion and plantar flexion. Sensations are intact. Cap fill is brisk. I then evaluate patient's left knee. Again incision is well healed. No surrounding erythema or ecchymosis. She is able fully extend the knee and flex to 120??. Knee is stable to varus and valgus stresstesting. Negative Homans. She has intact EHL FHL dorsiflexion and plantar flexion. Sensations are intact. Cap fill is brisk. IMAGING Radiographs of bilateral knees were obtained reviewed. X-rays do not demonstrate any acute process. No fracture dislocation. No interval change regards to alignment positioning of components. ASSESSMENT / PLAN 1. Status post right total knee arthroplasty 06/01/2018 2. Status post left total knee arthroplasty, 03/30/2018 Today we had a lengthy discussion patient regarding her knees. This point she is doing quite well. She is happy with her progress as are we. She will continue with outpatient therapy. We encouraged home exercise program. We also reviewed continued restrictions precautions. We will give her final prescriptions for [place] and tramadol to use only as needed. She will stop the oxycodone. I would like to see her back in 2 months for revaluation. She voiced understanding agreement this plan. documented in this encounter Plan of Treatment Not on filedocumented as of this encounter Visit Diagnoses Diagnosis Follow Up Knee Replacement Status Post - Primary documented in this encounter Care Teams Table Worker Relationship Specialty Start Date End Date Chastity Davidson M.D. PCP - General 03/19/17 01/11/20 documented as of this encounter
--- OUTSIDE RECORDS SUMMARY | 2022-08-31 10:06 | XMS_ITS | Encounter Summary ---
:1945 Author Organization [facility] Address [address] [place] [address] Care Team Providers Name Role Phone Chastity Davidson M.D. Primary Care Provider Unavailable Reason for Visit Physical Therapy (Routine) - Canceled Specialty Diagnoses / Procedures Referred By Contact Refer red To Contact Diagnoses Aftercare Total Knee Arthroplasty Gabriela Hernandez [facility] Procedures PT Ongoing treatment P.A.-C. [address] [place] [address] Referral ID Status Reason Start Date Expiration Date Visits V isits Requested Authorized [id number] Canceled 06/04/2018 07/30/2018 99 11 Encounter Details Date Type Department Care Team Description 07/02/2018 Clinical Support Department of Physical Irena Hernandez ret, P.A.-C. Aftercare Total Knee Medicine and Selwyn Nielson, PBruno, D.P.T. 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 - 07/02/2018 10:00 AM CDT Physical Therapy Outpatient Treatment Note SUBJECTIVE Patient Name: Mary Jane Rockwell Referring Provider: Flower Villalba Rehab Diagnosis: 1. Aftercare Total Knee Arthroplasty Reason for Referral: patient is status post right TKA on 06/01/2018. Patient was discharged from hospital on 06/03/2018. Onset Date: 06/01/18 Payor: [facility] / Plan: [employer] HMO / Product Type: HMO / No Data Recorded Total Visit Count: 6 Visit Count since last G-Codes: 5 Pt comments: patient reports that she tolerated last therapy session well and feels that knee continues to improve OBJECTIVE Pain: Pain Assessment Pain Score: 3 (Right knee) Ortho Exam TREATMENT Treatment today consisted of: Therapeutic Exercise: Warmup on NuStep 5 min to improve passive knee range of motion. 6 stairs x 6: Ascending alternating step without upper extremity support. Descending alternating step 3 sets with upper extremity support 3 sets without Neuromuscular Re-education: tandem stance 30 x3 sec right leg leading left leg leading Assessment Clinical Impression: Patient tolerated therapy session very well. Patient had improved sequencing and balance performing stairs. Patient no longer needed to pause before every step- down with RLE and was able to perform with minimal cuing. Upon ascending stairs without upper extremity support patient would lean forward andattempt to have LLE assist RLE however by 3rd set patient was able to navigate stairs in upright position with equal royce between steps. With balance exercises patient had increased difficulty with right foot back compared to left foot Clinical Decision Making: Low: no complicating factors, [...] Time Spent with Patient Neuromuscular Re-Education (min): 10 min Therapeutic Exercise (min): 10 min Time Calculation Total Timed Units (min): 20 min Total Treatment Time (min): 20 min Functional G-code Worksheet documented in this encounter Plan of Treatment Not on filedocumented as of this encounter Visit Diagnoses Diagnosis Aftercare Total Knee Arthroplasty documented in this encounter Care Teams Arbitrator Relationship Specialty Start Date End Date Chastity Davidson M.D. PCP - General 03/19/17 01/11/20 documented as of this encounter
--- OUTSIDE RECORDS SUMMARY | 2022-08-31 10:07 | XMS_ITS | Encounter Summary ---
:1945 Author Organization [facility] Address [address] [place] [address] Care Team Providers Name Role Phone Chastity Davidson M.D. Primary Care Provider Unavailable Reason for Visit Reason Onset Date Comments Post Hospital Follow-up 04/02/2018 Encounter Details Date Type Department Care Team Description 04/02/2018 Clinical Communication Department of Claudette Momin [facility] Family Medicine, Maritza RSuresh Follow-up [facility], in [address] [place] [address] [address] [facility] [phone] [place], [place] [phone] (Work) [phone] Social History Tobacco Use Types Packs/Day Years Used Date Smoking Tobacco: Former Cigarettes 0.3 35 Smokeless Tobacco: Never Comments: quit about 10 yrs ago Alcohol Use Standard Drinks/Week Comments Yes 3 (1 standard drink = 0.6 oz pure 2x or so per month 1 drink each alcohol) time Sex Assigned at Date Recorded Female 10/12/2017 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 - 04/02/2018 10:18 AM CDT SUBJECTIVE REASON FOR CALL Post-Hospital follow-up phone call with patient after Mary Jane Rockwell discharge on 04/01/18 for RTKA. General Health Mary Jane Rockwell notes today she is feeling the same than when she left the hospital. Patient confirms that the condition for which she was admitted remains the same experiencing post oppain as expected. Home management assessment post discharge: Patient states she has no questions or concerns. Actions taken: home care instructions reinforced or provided, provider notified and appointment ordered/scheduled as per TCM guidelines Infection related to a resistant organism: no Surgical/Procedural Follow-up Medication Status Medication status assessment: is taking new medications as prescribed Medication management: Patient states medication is self managed. MTM Referral warranted: no Patient's understanding of medication's side effects: Patient recalls and understands some of the side effects and reactions relating to new medication(s) - education provided? yes. Medications concerns: none Is patient taking any of the following: Controlled substances: yes Taking as instructed: yes Experiencing side effects: no Antibiotics: no Labs scheduled: n/a Taking as instructed:n/a Experiencing side effects: n/a Diabetic medications: no Type: n/a Home glucose monitoring: n/a Difficulties managing diabetes since discharge: n/a Anticoagulants: no Home Care/Equipment Home care ordered: no Activities of Daily Living Has activities of daily living changed since hospitalization: yes - decreased mobility due to RTKA surgery Ambulation Has ambulation changed since hospitalization: yes - using walker Difficulty ambulating: yes post op RTKA Follow-Up Appointment Follow-up appointment scheduled? yes Date of appointment: 04/06/18 Does patient plan to go to the appointment?: yes Concerns about getting to the appointment: issues getting to your appointment: none General Care and Feedback Actions: reviewed discharge plan of care with patient Post-Hospital Assessment: Areas for hospital feedback: Post hospital near miss assessment: Rescheduled post hospital follow upto within 7 days of discharge. documented in this encounter Plan of Treatment Not on filedocumented as of this encounter Visit Diagnoses Not on filedocumented in this encounter Care Teams Integrated Circuit Ic Layout Designer Relationship Specialty Start Date End Date Chastity Davidson M.D. PCP - General 03/19/17 01/11/20 documented as of this encounter
--- OUTSIDE RECORDS SUMMARY | 2022-08-31 10:07 | XMS_ITS | Encounter Summary ---
:1945 Author Organization [facility] Address [address] [place] [address] Care Team Providers Name Role Phone Chastity Davidson M.D. Primary Care Provider Unavailable Reason for Visit Physical Therapy (Routine) - Canceled Specialty Diagnoses / Procedures Referred By Contact Refer red To Contact Diagnoses Aftercare Total Knee Arthroplasty Gabriela Hernandez [facility] Procedures PT Ongoing treatment P.A.-C. [address] [place] [phone] Referral ID Status Reason Start Date Expiration Date Visits V isits Requested Authorized [id number] Canceled 04/02/2018 05/20/2018 99 11 Encounter Details Date Type Department Care Team Description 04/09/2018 Clinical Support Department of Physical Irena Hernandez ret, P.A.-C. Aftercare Total Knee Medicine and Selwyn Nielson, PBruno, D.P.T. 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 - 04/09/2018 8:00 AM CDT Physical Therapy Outpatient Treatment Note SUBJECTIVE Patient Name: Mary Jane Rockwell Referring Provider: Flower Villalba Rehab Diagnosis: 1. Aftercare Total Knee Arthroplasty Reason for Referral: Patient is status post left TKA on 03/30/2018. Onset Date: 03/30/18 Payor: [facility] / Plan: [facility] FOR [employer] HMO / Product Type: HMO / Total Visit Count: 2 Visit Count since last G-Codes: 1 03/30/2018 for total knee Pt comments: patient reports that all exercises have been going well at home she does report increase in swelling secondary to not elevating or icing as much as she should be. OBJECTIVE Pain: Pain Assessment Pain Assessment: 0-10 Numeric Pain Intensity Scale Pain Score: 2 Ortho Exam TREATMENT Treatment today consisted of: Manual Therapy: Other Manual Therapy: PROM and therapy 3?? from full knee extension 115?? flexion Therapeutic Exercise: Exercise - Position Seated Exercise: More Seated Exercises Seated Exercise 1: Warmup on NuStep to improved PROM 8 min. Hamstring curl 30 lb x 10. Hamstring curl machine holds 2 min x3. Standing Exercise: More Standing Exercises Standing Exercise 1: Step-up 6 in step x 10, side step-up 2 in step x 10, step- down 2 in step x 10. Home Exercise Program/Education: Educated patient and on how to use Vinny wrap to help with swelling. Assessment Clinical Impression: Patient tolerated all therapy exercises well today she did have moderate difficulty with 2 in step Downs secondary to pain. PROM is progressing nicely. Patient arrived with FWW however after assessing balance patient can now start to trial using SEC for all ambulation Clinical Decision Making: Low: no complicating factors, [...] priorlevel of function PT Goal #3 Date: 06/11/18 Plan Continue to work with patient on PROM AROM strengthening and balance for LLE Treatment/Interventions: Therapeutic exercise, Manual therapy, Neuromuscular re-education [...] Arthroplasty documented in this encounter Care Teams Forging Operator Relationship Specialty Start Date End Date Chastity Davidson M.D. PCP - General 03/19/17 01/11/20 documented as of this encounter
--- OUTSIDE RECORDS SUMMARY | 2022-08-31 10:07 | XMS_ITS | Encounter Summary ---
:1945 Author Organization [facility] Address [address] [place] [address] Care Team Providers Name Role Phone Chastity Davidson M.D. Primary Care Provider Unavailable Reason for Visit Reason Comments Post Hospital Follow-up follow up L TKA Outpatient (Routine) - Closed Specialty Diagnoses / Procedures Referred By Contact Refer red To Contact Diagnoses Primary Osteoarthritis Knee Right Primary Osteoarthritis Knee Left Hypertension Benign Renovascular Bonilla Bragg M.D. [facility] [address] [place] [phone] Referral ID Status Reason Start Date Expiration Date Visits Requ ested Visits Authorized [id number] Closed 04/01/2018 04/01/2019 1 1 Encounter Details Date Type Department Care Team Description 04/06/2018 Office Visit Department of Family Davidson, Primary Osteoarthritis Knee Right (Primary Dx); Medicine tony Haywood M.D. 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 - 04/06/2018 11:15 AM CDT SUBJECTIVE CHIEF COMPLAINT/REASON FOR VISIT Chief Complaint Patient presents with ??? Post Hospital Follow-up follow up L TKA HISTORY OF PRESENT ILLNESS Mary Jane Rockwell is a 72 y.o. female who presents in follow-up for hospitalization for left totalknee arthroplasty. Dr. Hoffman did the procedure on 03/30/2018. She will be seeing the PA to remove dressing and maryana on 04/12/[address] Hoffman on 05/10/2018. The top of the dressing is loose kne e little so we did put some Tegaderm over the top as she is not supposed to remove that till she sees the PA. Her pain is basically well controlled. She says it hurts with weight-bearing some but she is using oxycodone as needed. She does say she has had a sharp pain in the last couple of days down the front of her knee. She has a lot of bruising on the posterior thigh and medial thigh. She ices and elevates and she is doing physical therapy twice a week. Her blood pressure went low while she was int hospital so they removed her hydrochlorothiazide and potassium. Her blood pressure is within normal limits right now but told her to watch closely is we may have to restart the medication. 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 Other than discussion in HPI, complete review of systems is negative. ALLERGIES/CONTRAINDICATIONS Allergies Allergen Reactions ??? Gentamicin Other (see comments) Made my eyes worse ??? Neosporin (Ydc-Vgo-Drdwe) [Uzpatvlj-Njgqvfmmwk-Shgcfdigq] Other (see comments) ??? Tobramycin Other (see comments) Made my eyes worse CURRENT MEDICATIONS Current Outpatient Prescriptions Medication Sig Dispense Refill ??? acetaminophen (for_TYLENOL 8 HR) 650 mg ER tablet Take 1,300 mg by mouth 2 (two) times a day. Asneeded ??? aspirin 81 mg chewable tablet Chew 1 tablet (81 mg total) 2 (two) times a day. 90 tablet 0 ??? CALCIUM CARBONATE/VITAMIN D3 (CALCIUM WITH VITAMIN D ORAL) Take by mouth daily. ??? lisinopril (for_PRINIVIL,ZESTRIL) 5 mg tablet Take 1 tablet (5 mg total) by mouth daily. 90 tablet 3 ??? multivitamin capsule Take by mouth daily. ??? oxyCODONE (ROXICODONE) 5 mg immediate release tablet Take 1 tablet (5 mg total) by mouth every 4(four) hours as needed for moderate pain or score 4-6 of 10. 90 tablet 0 ??? pantoprazole (for_PROTONIX) 20 mg EC tablet Take 1 tablet (20 mg total) by mouth daily. 90 tablet 3 ??? sennosides-docusate sodium (SENOKOT-S) 8.6-50 mg per tablet Take 1 tablet by mouth 2 (two) timesa day. 30 tablet 0 OBJECTIVE VITAL SIGNS BP 130/86 (BP Location: Left arm, Patient Position: Sitting, Cuff Size: Large) Pulse 96 Temp 36.8 ??C (Temporal) Resp 20 Ht 158 cm Wt 89.6 kg BMI 35.89 kg/m?? PHYSICAL EXAMINATION General: The patient is in no apparent distress and is alert and oriented. Mood and affect normal. Patient is very pleasant. Lungs: Clear to auscultation bilaterally. Heart: Regular rate and rhythm without murmur. Abdomen: Soft, nontender without hepatosplenomegaly, rebound or rigidity. Skin: Bruising as mentioned in HPI Extremities: No cyanosis, clubbing but 1+ edema on the left lower extremity. Musculoskeletal: Left knee bends to 110?? and extends to 170??. Dressing has minimal dry blood on itand we did not remove it Neuro: Balance, coordination and gait are normal. Speech and recall are normal. DTR 2+/4, Strengths 5/5. ASSESSMENT / PLAN #1 Primary Osteoarthritis Knee Right She says she is probably going to get the right knee done when she is rehab the left side. That alsowas in stage arthritis. #2 Primary Osteoarthritis Knee Left She is progressing nicely with her range of motion and strength. She is working with physical therapy and will see Orthopedics next week. #3 Hypertension Benign Renovascular She will monitor but her blood pressure and contact me if it started to go high. #4 Other Specified Anemias Her hemoglobin was low after surgery so were going to check the CBC to make sure she is improving. - CBC with Differential, Blood Other orders - Post Hospital Visit Primary Care ADMINISTRATIVE BILLING Total time spent 25 minutes, 20 minutes spent in counseling and coordination of care. documented in this encounter Plan of Treatment Not on filedocumented as of this encounter Procedures Procedure Name Priority Date/Time Associated Diagnosis Comme nts CBC WITH Routine 04/06/2018 11:48 AM Other Specified Resul ts for this DIFFERENTIAL, B CDT Anemias procedure ar e in the results section. documented in this encounter Results (ABNORMAL) CBC with Differential, Blood (04/06/2018 11:48 AM CDT) [facility] Method Time Signature Hemoglobin 10.4 (L) 11.6 - 04/06/2018 [facility] 15.0 g/dL 12:17 PM CDT [facility] Hematocrit 32.5 (L) 35.5 - 04/06/2018 [facility] 44.9 % 12:17 PM CDT [facility] Erythrocytes 3.30 (L) 3.92 - 04/06/2018 [facility] 5.13 12:17 PM CDT [facility] MCV 98.5 (H) 78.2 - 04/06/2018 [facility] 97.9 fL 12:17 PM CDT [facility] RBC Distrib Width 13.9 12.2 - 04/06/2018 [facility] 16.1 % 12:17 PM T [facility] Platelet Count 368 157 - 371 04/06/2018 [facility] x10(9)/L 12:17 PM CDT [facility] Leukocytes 6.1 3.4 - 9.6 04/06/2018 [facility] x10(9)/L 12:17 PM CDT [facility] Neutrophils 3.76 1.56 - 04/06/2018 [facility] 6.45 12:17 PM CDT [facility] x10(9)/[facility] Lymphocytes 1.34 0.95 - 04/06/2018 [facility] 3.07 12:17 PM CDT [facility]10(9[facility] Monocytes 0.76 0.26 - 04/06/2018 [facility] 0.81 12:17 PM CDT [facility]10(9[facility] Eosinophils 0.23 0.03 - 04/06/2018 [facility] 0.48 12:17 PM CDT [facility](9[facility] Basophils 0.03 0.01 - 04/06/2018 [facility] 0.08 12:17 PM CDT [facility] x10(9[facility] Specimen Anatomical Collection Method Collection Time Receive d Time (Source) Location / / Volume Laterality Blood (Blood, 04/06/2018 11:48 04/06/2018 Venous) AM CDT 12:13 PM CDT Chastity Davidson M.D. LAB BLOOD ADD-ON Performing Organization Address City/State/ZIP Code Phon e Number [facility] [address] [place] [address], [place] [phone] [facility] documented in this encounter Visit Diagnoses Diagnosis Primary Osteoarthritis Knee Right - Prim magdi Primary Osteoarthritis Knee Left Hypertension Benign Renovascular Other Specified Anemias documented in this encounter Care Teams Latin American Studies Director Relationship Specialty Start Date End Date Chastity Davidson M.D. PCP - General 03/19/17 01/11/20 documented as of this encounter
--- OUTSIDE RECORDS SUMMARY | 2022-08-31 10:07 | XMS_ITS | Encounter Summary ---
:1945 Author Organization [facility] Address [address] [place] [address] Care Team Providers Name Role Phone Chastity Davidson M.D. Primary Care Provider Unavailable Reason for Visit Physical Therapy (Routine) - Canceled Specialty Diagnoses / Procedures Referred By Contact Refer red To Contact Diagnoses Aftercare Total Knee Arthroplasty Gabriela Hernandez [facility] Procedures PT Ongoing treatment P.A.-C. [address] [place] [phone] Referral ID Status Reason Start Date Expiration Date Visits V isits Requested Authorized [id number] Canceled 04/02/2018 05/20/2018 99 11 Encounter Details Date Type Department Care Team Description 05/04/2018 Clinical Support Department of Physical Irena Hernandez ret, P.A.-C. Aftercare Total Knee Medicine and Selwyn Nielson, PBruno, D.P.T. 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 - 05/04/2018 9:30 AM CDT Physical Therapy Outpatient Treatment Note SUBJECTIVE Patient Name: Mary Jane Rockwell Referring Provider: Flower Villalba Rehab Diagnosis: 1. Aftercare Total Knee Arthroplasty Reason for Referral: Patient is status post left TKA on 03/30/2018. Onset Date: 03/30/18 Payor: [facility] / Plan: [facility] FOR [employer] HMO / Product Type: HMO / Total Visit Count: 9 Visit Count since last G-Codes: 8 03/30/2018 for total knee status post 2 weeks Pt comments: patient reports that she tolerated last therapy session well and that she has been compliant with home exercise program. She has most difficulty with knee extension exercises. OBJECTIVE Pain: Pain Assessment Pain Assessment: 0-10 Numeric Pain Intensity Scale Pain Score: 1 (left knee) Ortho Exam TREATMENT Treatment today consisted of: Therapeutic Exercise: Exercise - Position Seated Exercise 1: Warmup on NuStep and upright bike to improve PROM x5 minutes. Leg press machine LLE: 60 lb x 10, 80 lb x5. Leg extension machine LLE: 25 lb eccentric lowering x5, concentric and eccentric 12.5 lb x5. Assessment Clinical Impression: Today's therapy focus was on strengthening along with neuromuscular re- education. Patient had increased difficulty with knee extension machine only tolerating 12.5 lb for concentric muscle activation. Patient was able to tolerate eccentric activation 25 lb. Patient also has increased difficulty with ankle activation/righting technique for balance compared to right ankle. Patient required verbal and demonstration for correction. At end of therapy patient had improved ankle righting technique for improved balance. Clinical Decision Making: Low: no complicating factors, [...] on PROM AROM strengthening and balance for LLE. Patient has follow-up appointment with Dr. mclaughlin at that time patient will discuss possible elective total knee arthroplasty for right knee if that is the case was plan for tentative discharge 05/28/2018 Treatment/Interventions: Therapeutic exercise, Manual therapy, Neuromuscular re-education Plan: Continue with current plan Selwyn Nielson P.T., D.P.T. Time Spent with Patient Therapeutic Exercise (min): 25 min Time Calculation Total Timed Units (min): 25 min Total Treatment Time (min): 25 min Functional G-code Worksheet documented in this encounter Plan of Treatment Not on filedocumented as of this encounter Visit Diagnoses Diagnosis Aftercare Total Knee Arthroplasty documented in this encounter Care Teams Shake Feeder Relationship Specialty Start Date End Date Chastity Davidson M.D. PCP - General 03/19/17 01/11/20 documented as of this encounter
--- OUTSIDE RECORDS SUMMARY | 2022-08-31 10:07 | XMS_ITS | Encounter Summary ---
:[address] [facility] Address [address] [place] [address] Care Team Providers Name Role Phone Chastity Davidson M.D. Primary Care Provider Unavailable Reason for Visit Reason Comments Follow-up Encounter Details Date Type Department Care Team Description 05/10/2018 Office Visit Department of Gabriela Hernandez P.A.-C . Follow Up Knee Replacement Status Post (Primary Dx); Orthopedic Surgery Fausto Hoffman D.O. 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 - 05/10/2018 11:00 AM CDT SUBJECTIVE Pain reported: Site 1 Pain Score: 1, Pain Location: Knee, Pain Orientation: Left, Pain Descriptors: Tingling, Other(Comment) (discomfort), Pain Frequency: Constant/continuous, (05/10/18 1112 : Radha Alex) CHIEF COMPLAINT / REASON FOR VISIT Chris Rockwell is a 73 y.o. female who presents for follow-up of Follow-up of the Left Knee andis under the care of Chastity Davidson M.D.. HISTORY OF PRESENT ILLNESS Patient is a pleasant 70-year-old female presented for evaluation her left as well as her right knee. She is status post left total knee arthroplasty on 03/30. She states she is doing quite well. She has no pain is quite happy with her progress. She wishes to discuss proceeding with right total knee ar throplasty. No other new concerns. Her surgical history is notable for: Past Surgical History: Procedure Laterality Date ??? ARTHROPLASTY REPLACEMENT TOTAL KNEE Left 03/30/2018 Procedure: ARTHROPLASTY REPLACEMENT TOTAL KNEE; Surgeon: Fausto Hoffman D.O.; Location: [facility] ??? ARTHROPLASTY REPLACEMENT TOTAL KNEE Right 06/01/2018 Procedure: ARTHROPLASTY REPLACEMENT TOTAL KNEE; Surgeon: Fausto Hoffman D.O.; Location: [facility] ??? COLONOSCOPY N/A 02/01/2018 Procedure: COLONOSCOPY; Surgeon: Jazmyne Weaver M.D.; Location: [facility] ??? CYST REMOVAL ??? ESOPHAGOGASTRODUODENOSCOPY N/A 02/01/2018 Procedure: ESOPHAGOGASTRODUODENOSCOPY; Surgeon: Jazmyne Weaver M.D.; Location: [facility] ??? TONSILLECTOMY AND ADENOIDECTOMY N/A 1950 Tonsillectomy and adenoidectomy The following portions of the patient's history were reviewed and updated as appropriate: allergies,current medications, family history, medical history, social history, surgical history and problem list. REVIEW OF SYSTEMS All other systems reviewed and are negative. OBJECTIVE PHYSICAL EXAM Ortho Exam Extremities: My attention is 1st directed toward her left knee. Incisions well healed. No surrounding erythema or ecchymosis. Patient lacks maybe 0 degree or 2 from full extension is able to flex to 110?? without difficulty. Knee is stable to varus valgus stress testing. Negative Homans. She has intact EHL FHL dorsiflexion and plantar flexion. Sensations are intact. Cap fill is brisk. Then evaluate the patient's right knee. No erythema or ecchymosis. Mild knee effusion. Genu valgus deformity. Nearly fully correctable. She is able to fully extend the knee and flex to 120??. Pain withflexion. Retropatellar crepitance noted with range of motion testing. Tenderness to the lateral joint line. Negative Homans. She has intact EHL FHL dorsiflexion and plantar flexion. Sensations are intact. Cap fill is brisk. DIAGNOSTICS IMAGING Two views of the left knee were obtained reviewed. X-rays do not demonstrate acute process. No fracture dislocation. No interval change regards to alignment positioning components. ASSESSMENT / PLAN #1 Follow Up Knee Replacement Status Post #2 Primary Osteoarthritis Knee Right Today we had a lengthy discussion the patient regarding her knees. At this point she is doing fairlywell with the left knee. She really has no pain is happy with her progress up to this point. Her main concern is the right knee. This gives her pain at rest. She has failed conservative treatment up tothis point and is happy with her knee, and wish to proceed with surgery. I discussed the risks, benefits, and alternatives to further non-operative versus surgical treatment. At no time were any guarantees implied or stated. Patient expressed understanding and a preference to proceed with surgery. Informed consent was obtained. The earliest mutually convenient time we will schedule her for right total knee arthroplasty. She voiced understanding agreement this plan. documented in this encounter Plan of Treatment Not on filedocumented as of this encounter Procedures Procedure Name Priority Date/Time Associated Diagnosis Comme nts MRSA/STAPHYLOCOCCU Routine 05/10/2018 11:47 Primary Osteoarthr itis Results for this S AUREUS, NASAL, AM CDT Knee Right procedure a re in BY PCR the results section. documented in this encounter Results DX Knee Right Standing 1-2 Views (09/08/2018 2:37 PM UTILITY SYSTEM OPERATOR) Anatomical Region Laterality Modality Lower Extremity, Knee, Musculoskeletal RST LOS, Right Digital Radiography Musculoskeletal ARZ LOS, Muskuloskeletal FLA LOS Specimen (Source) Anatomical Collection Method Collection Time Re ceived Time Location / / Volume Laterality 09/08/2018 3:20 PM UTILITY SYSTEM OPERATOR Impressions 09/08/2018 3:21 PM UTILITY SYSTEM OPERATOR IMPRESSION: Status post bilateral knee r eplacement. Narrative 09/08/2018 3:21 PM UTILITY SYSTEM OPERATOR EXAM: DX KNEE RIGHT STANDING 1-2 [...] Status post bilateral knee r eplacement. Fausto Hoffman D.O. IMG DIAGNOSTIC IMAGING PROCE KIN Hemoglobin (05/17/2018 10:28 AM CDT) athologist Signature Hemoglobin 11.9 11.6 - 15.0 05/17/2018 [facility] g/dL 12:43 PM CDT [facility] Specimen Anatomical Collection Method Collection Time Receive d Time (Source) Location / / Volume Laterality Blood (Blood, 05/17/2018 10:28 05/17/2018 Venous) AM CDT 12:21 PM CDT Fausto Hoffman D.O. LAB BLOOD ADD-ON Performing Organization Address City/State/ZIP Code Phon e Number [facility]- [address] [place] [phone] [place] (ABNORMAL) MRSA/Staphylococcus aureus, Nasal, by PCR (05/10/2018 11:47 AM CDT) athologist Signature MRSA, PCR Negative Negative 05/10/2018 [facility] 2:35 PM CDT [facility] Comment: Notes\S\\S\CHRIS ROCKWELL 1945 Staphylococcus aureus, Positive (A) Negative 05/10/2018 2:3 5 PM [facility] PCR CDT [facility] Comment: Notes\S\\S\CHRIS ROCKWELL 1945 Specimen Anatomical Collection Method Collection Time Receive d Time (Source) Location / / Volume Laterality Swab (Nares) 05/10/2018 11:47 05/10/2018 AM CDT 12:05 PM CDT Fausto Hoffman D.O. 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 PCP - General 03/19/17 01/11/20 documented as of this encounter
--- OUTSIDE RECORDS SUMMARY | 2022-08-31 10:07 | XMS_ITS | Encounter Summary ---
:1945 Author Organization [facility] Address [address] [place] [address] Care Team Providers Name Role Phone Chastity Davidson M.D. Primary Care Provider Unavailable Reason for Visit Physical Therapy (Routine) - Closed Specialty Diagnoses / Procedures Referred By Contact Refer red To Contact Physical Medicine and Diagnoses Aftercare Total Knee Arthroplasty Gabriela Hernandez [facility] Rehabilitation Procedures PT Evaluate and treat Israel, P.A.-CLa [address] [place] [address] Referral ID Status Reason Start Date Expiration Date Visits Requ ested Visits Authorized [id number] Closed 04/01/2018 04/01/2019 12 12 Encounter Details Date Type Department Care Team Description 04/02/2018 Comprehensive Visit Department of Gabriela Hernandez PLaALa-CLa Aftercare Total Physical Medicine and Selwyn Nielson, PLaTLa, D.P.T. 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 - 04/02/2018 7:00 AM CDT Consults Physical Therapy Evaluation and Treatment Outpatient SUBJECTIVE Patient's Name: Mary Jane Rockwell Referring Provider: Flower Villalba Rehab Diagnosis: 1. Aftercare Total Knee Arthroplasty Reason for Referral: Patient is status post left TKA on 03/30/2018. Onset Date: 03/30/18 Payor: [facility] / Plan: [employer] HMO / Product Type: HMO / PERTINENT MEDICAL / SURGICAL HISTORY: Patient Active Problem List Diagnosis ??? Hypertension Benign Renovascular ??? Reflux Esophageal ??? Arthropathy ??? Hemorrhage Gastrointestinal ??? Anemia ??? Screening Cancer Colon ??? Primary Osteoarthritis Knee Right ??? Primary Osteoarthritis Knee Left ??? Aftercare Total Knee Arthroplasty Past Surgical History: Procedure Laterality Date ??? ARTHROPLASTY REPLACEMENT TOTAL KNEE Left 03/30/2018 Procedure: ARTHROPLASTY REPLACEMENT TOTAL KNEE; Surgeon: aFusto Hoffman D.O.; Location: [facility] ??? COLONOSCOPY N/A 02/01/2018 Procedure: COLONOSCOPY; Surgeon: Jazmyne Weaver M.D.; Location: [facility] ??? CYST REMOVAL ??? ESOPHAGOGASTRODUODENOSCOPY N/A 02/01/2018 Procedure: ESOPHAGOGASTRODUODENOSCOPY; Surgeon: Jazmyne Weaver M.D.; Location: [facility] ??? TONSILLECTOMY AND ADENOIDECTOMY N/A 1950 Tonsillectomy and adenoidectomy Prior Hospitalization: 03/30/2018 to 04/01/2018 Total Visit Count: 1 Visit Count since last G-Codes: 1 Mary Jane Rockwell is a 72 y.o. female who presents to outpatient physical therapy for evaluation. Her symptoms consist of left TKA, which began 03/30/18. Overall she reports her status is improving . History of Present Illness/Current Level of Function: Prior to total knee arthroplasty of the left knee patient was independent with all functional tasks and mobility without using assistive device. Currently patient requires using FWW for all mobility and is performing step to pattern with stairs Aggravating Factors: Moving the knee Relieving Factors: Ice and medication Previous Treatments: None Occupational Profile Prior Level of Function: Patient was independent with all functional tasks and mobility without use of assistive device however pain was 7/10 Patient/Caregiver Goals: Get better OBJECTIVE REVIEW OF SYSTEMS General ROS: negative for - chills, fatigue or fever PHYSICAL EXAM Pain: Pain Assessment Pain Assessment: 0-10 Numeric Pain Intensity Scale Pain Score: 2 Observation/Inspection: Patient is a pleasant 72-year-old female in no acute distress Posture: Fair posture with mild guarding of LLE. Range of Motion: ROM - Lower Extremity Screen: Impaired left (10?? from full knee extension 105?? flexion) Strength:Strength - Lower Extremity Screen: (LLE not tested secondary to postsurgical grossly 3/5 strength) Neuro Screen/Motor Control: Patient denies any numbness or tingling in LLE patellar tendon reflex not tested secondary to postsurgical. Palpation: Patient has mild to moderate swelling LLE. All bony structures are intact no abnormal findings Ambulation/Balance: Static Standing-Balance: Good (Maintains balance without support) Dynamic Standing-Balance: Fair (Maintains balance with handheld assistance) Device: Front wheeled walker Quality: Decreased heel strike, Decreased toe off Ortho Exam Outcome Measures: Interpretation: [employer] Osteoarthritis Index (WOMAC): 0% equates to no pain, stiffness or difficulty with functional activities. Eval score 11% TREATMENT Treatment today consisted of: Therapeutic Exercise: Exercise - Position Position Exercise Comment: Initiated and practiced home exercise program: X 20 x 2; sit to stands without upper extremity support, step-up LLE. Stretching x5 x5 minute holds x2: Seated knee flexion, seated knee extension, supine knee flexion/knee extension hip at 90?? Assessment Clinical Impression: Mary Jane Rockwell is a 72 y.o. female who presents to outpatient physical therapy for evaluation. Her symptoms consist of left TKA, which began 03/30/18. Overall she reports her status is improving .Patient is doing very well progressing nicely with minimal pain. Rehab Potential: Ms. Rockwell has Excellent potential [...] of function PT Goal #3 Date: 06/11/18 The severity of Ms. Rockwell???s functional limitation [...] Treatment Plan: Start of Plan of Care: 04/02/2018 PT Next Certification Date: 06/25/18 Number of Visits: up to 20 visits PT Duration: Two x a week for 10 weeks Treatment interventions may include: Therapeutic exercise, Manual therapy, Neuromuscular re-education Selwyn Nielson P.T., D.P.T. Time Spent with Patient PT Evaluation (min): 20 min Therapeutic Exercise (min): 30 min Time Calculation Total Timed Units (min): 30 min Total Treatment Time (min): 50 min Functional G-code Worksheet Functional Assessment Tool Used: WOMAC Functional Limitation: Mobility: Walking and moving around Mobility: Walking and Moving Around Current Status (G8978): At least 1 percent but less than 20 percent impaired, limited or restricted Mobility: Walking and Moving Around Goal Status (G8979): 0 percent impaired, limited or restricted By co-signing this note, the provider certifies the therapy being provided to this patient is reasonable and necessary for the diagnosis or treatment of this patient. documented in this encounter Plan of Treatment Not on filedocumented as of this encounter Visit Diagnoses Diagnosis Aftercare Total Knee Arthroplasty documented in this encounter Care Teams Answerer Relationship Specialty Start Date End Date Chastity Davidson M.D. PCP - General 03/19/17 01/11/20 documented as of this encounter
--- OUTSIDE RECORDS SUMMARY | 2022-08-31 10:07 | XMS_ITS | Encounter Summary ---
:1945 Author Organization [facility] Address [address] [place] [address] Care Team Providers Name Role Phone Chastity Davidson M.D. Primary Care Provider Unavailable Encounter Details Date Type Department Care Team Description 05/17/2018 Hospital Encounter Department of Fausto Hoffman Follow Up Knee Replacement Status Post; Laboratory Medicine J, D.OLa Preoperative Exam in [address] [address] [place], [place] [phone] (Work) [phone] Social History Tobacco Use Types Packs/Day Years Used Date Smoking Tobacco: Former Cigarettes 0.3 35 Smokeless Tobacco: Never Comments: quit about 10 yrs ago Alcohol Use Standard Drinks/Week Comments Yes 3 (1 standard drink = 0.6 oz pure 2x or so per month 1 drink each alcohol) time Sex 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 As needed CALCIUM CARBONATE/VITAMIN Take by mouth daily. 0 11/13/2009 D3 (CALCIUM WITH VITAMIN D ORAL) multivitamin capsule Take by mouth daily. 0 11/13 acetaminophen (TYLENOL) Take 2 tablets 90 tablet 0 06/03/20 18 06/03/2018 500 mg tablet (1,000 mg total) by mouth every 6 (six) hours. aspirin 325 mg tablet Take 1 tablet (325 90 tablet 0 201706/03/2018 mg total) by mouth 2 (two) times a day. aspirin [address] tablet Take 1 tablet (81 mg 90 tablet 11 12/07/2018 total) by mouth 2 (two) times a day. lisinopril Take 1 tablet (5 mg 90 tablet 3 10/12/201711/16 (for_PRINIVIL,ZESTRIL) 5 total) by mouth mg tablet daily. mupirocin (BACTROBAN) 2 % Apply to the nose 22 g 0 04/201806/03/2018 ointment twice daily starting 5 days before surgery, including the morning of surgery. oxyCODONE (ROXICODONE) 5 Take 1 tablet (5 mg 90 tablet 0 06/03/2018 mg immediate release total) by mouth tablet every 4 (four) hours as needed for moderate pain or score 4-6 of 10. oxyCODONE (ROXICODONE) 5 Take 1-2 tablets 90 tablet 0 06/0306/16/2018 mg immediate release (5-10 mg total) by tablet mouth every 4 (four) hours as needed for moderate pain or score 4-6 of 10. pantoprazole Take 1 tablet (20 mg 90 tablet 3 01/08/2018 (for_PROTONIX) 20 mg EC total) by mouth tablet daily. sennosides-docusate Take 1 tablet by 30 tablet 0 04/01/2018 06/03/2018 sodium (SENOKOT-S) 8.6-50 mouth 2 (two) times mg per tablet a day. sennosides-docusate Take 1 tablet by 30 tablet 0 06/03/2018 06/16/2018 sodium (SENOKOT-S) 8.6-50 mouth at bedtime as mg per tablet needed for constipation. traMADol (ULTRAM) 50 mg Take 1 tablet (50 mg 60 tablet 0 06/03/2018 tablet total) by mouth every 4 (four) hours as needed for pain. documented as of this encounter Plan of Treatment Not on filedocumented as of this encounter Procedures Procedure Name Priority Date/Time Associated Diagnosis Comme nts URINALYSIS WITH Routine 05/17/2018 10:42 Preoperative Exam Res ults for this MICROSCOPIC IF AM CDT procedure are in INDICATED, U the results section. MICROSCOPIC MANUAL Routine 05/17/2018 10:42 Resul ts for this AM CDT procedure are i n the results section. BACTERIAL CULTURE, Routine 05/17/2018 10:42 Preoperative Exam Results for this AEROBIC + SUSC, AM CDT procedure ar e in URINE the results section. HEMOGLOBIN, B Routine 05/17/2018 10:28 Follow Up Knee Results for this AM CDT Replacement Status procedure are in Post the results section. TYPE AND SCREEN Routine 05/17/2018 10:21 Results for this AM CDT procedure are i n the results section. documented in this encounter Results (ABNORMAL) Microscopic Manual (05/17/2018 10:42 AM CDT) P athologist Signature White Blood 4-10 /hpf 05/17/2018 [facility] Cells 12:53 PM CDT [facility]- [facility] Comment: ----REFERENCE VALUE---- Males: 0-3 Females: 0-10 Unknown: 0-10 Red Blood Cells 3-10 (A) 0 - 2 /hpf 05/17/2018 12:53 PM [facility] [employer] [facility]- [facility] Dysmorphic Red Blood <=25 <=25 % 05/17/2018 12:53 PM [facility] [employer] CDT [facility]- [facility] Squamous Cells Occ-3 /hpf 05/17/2018 12:53 PM [facility] Specimen Anatomical Collection Method Collection Time Receive d Time (Source) Location / / Volume Laterality Urine 05/17/2018 10:42 05/17/2018 AM CDT 12:47 PM CDT Chastity Davidson M.D. LAB URINE ORDERABLES Performing Organization Address City/State/ZIP Code Phon e Number [facility]- [address] [place] [address], [place] [phone] [place] [facility] (ABNORMAL) Urinalysis with Microscopic if Indicated (05/17/2018 10:42 AM CDT) P athologist Signature Source Midstream 05/17/2018 [facility] 10:48 AM CDT [facility] Clarity Clear Clear 05/17/2018 [facility] 10:48 AM [facility] Color Yellow 05/17/2018 [facility] 10:48 AM [facility] Comment: ----REFERENCE VALUE---- Colorless Yellow [place] Blood Trace (A) Negative 05/17/2018 [facility]:[address] [facility] Nitrite Negative Negative 05/17/2018 10:48 AM [facility] Leukocyte Esterase Negative Negative 05/17/2018 10:48 AM [facility] Protein 30 (A) mg/dL 05/17/2018 10:48 AM [facility] Comment: ----REFERENCE VALUE---- Negative Trace Glucose Negative Negative mg/dL 05/17/2018 10:48 AM [facility] Ketones, QI(U) Trace (A) Negative mg/dL 05/17/2018 10:48 AM [facility] Bilirubin Small (A) Negative 05/17/2018 10:48 AM [facility] pH 6.0 5.0 - 8.0 05/17/2018 10:48 AM [facility] Specific [place] 1.020 1.001 - 1.035 05/17/2018 10:48 AM [facility] Urobilinogen 0.2 0.2 - 1.0 mg/dL 05/17/2018 10:48 AM [facility] Specimen Anatomical Collection Method Collection Time Receive d Time (Source) Location / / Volume Laterality Urine (Urine, 05/17/2018 10:42 05/17/2018 Clean Catch) AM CDT 10:42 AM CDT Chastity Davidson M.D. LAB URINE ORDERABLES Performing Organization Address City/State/ZIP Code Phon e Number [facility]- [address] [place], [place] [address] [place] [facility] Bacterial Culture, Aerobic + Susc, Urine (05/17/2018 10:42 AM CDT) Analysis Performed At Patho logist Time Signature Bacterial Mixed 05/18/2018 [facility] Culture, byron. 10:49 AM CDT HEALTH Aerobic, Urine SYSTEM- [place] [facility] Specimen Anatomical Collection Method Collection Time Receive d Time (Source) Location / / Volume Laterality Urine (Urine, 05/17/2018 10:42 05/17/2018 1:56 Midstream) AM CDT PM CDT Comment: Specimen Source Site: Urine Chastity Davidson M.D. LAB MICROBIOLOGY - GENERAL O RDERABLES Performing Organization Address City/[facility]/ZIP Code Phon e Number [facility] [address] [place] [address] LAB Hemoglobin (05/17/2018 10:28 AM CDT) P athologist Signature Hemoglobin 11.9 11.6 - 15.0 05/17/2018 [facility] g/dL 12:43 PM CDT [facility] Specimen Anatomical Collection Method Collection Time Receive d Time (Source) Location / / Volume Laterality Blood (Blood, 05/17/2018 10:28 05/17/2018 Venous) AM CDT 12:21 PM CDT Fausto Hoffman D.O. LAB BLOOD ADD-ON Performing Organization Address City/[facility] Phon e Number [facility]- [address] [place] [phone] [place] [facility] Type and Screen (with reflex Antibody ID) (05/17/2018 10:21 AM CDT) [facility] gist Method Time Signature ABO Group O 05/20/2018 [facility] 2:26 PM T [facility] Rh Type POS 05/18/2018 [facility] 12:32 AM T [facility] Antibody Screen NEG 05/18/2018 [facility] 12:32 AM T [facility] Type & Screen 07/12/2018 05/20/2018 [facility] Expiration 23:59 2:26 PM [facility] ELXM Eligible Y 05/20/2018 [facility] 2:26 PM [facility] LAB Specimen Anatomical Collection Method Collection Time Receive d Time (Source) Location / / Volume Laterality Blood 05/17/2018 10:21 05/17/2018 AM CDT 11:25 PM CDT Fausto Hoffman D.O. LAB BLOOD BANK TEST ORDERABL ES Performing Organization Address City/State/ZIP Code Phon e Number [facility]- [address] [place], [place] [phone] [place] [facility]- [address] [place] [address], [facility] documented in this encounter Visit Diagnoses Diagnosis Follow Up Knee Replacement Status Post Preoperative Exam documented in this encounter Care Teams Visual Communications Instructor Relationship Specialty Start Date End Date Chastity Davidson M.D. PCP - General 03/19/17 01/11/20 documented as of this encounter
--- OUTSIDE RECORDS SUMMARY | 2022-08-31 10:07 | XMS_ITS | Encounter Summary ---
:1945 Author Organization [facility] Address [address] [place] [address] Care Team Providers Name Role Phone Chastity Davidson M.D. 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 documented in this encounter Results ANESTHESIOLOGY IMAGE EXAM (03/30/2018 8:15 AM CDT) Specimen (Source) Anatomical Collection Method Collection Time Re ceived Time Location / / Volume Laterality 03/30/2018 8:13 AM CDT Narrative [facility] - 03/30/2018 8:22 AM CDT This order has been created [...] on filedocumented in this encounter Care Teams Machine Builder Relationship Specialty Start Date End Date Chastity Davidson M.D. PCP - General 03/19/17 01/11/20 documented as of this encounter
--- OUTSIDE RECORDS SUMMARY | 2022-08-31 10:07 | XMS_ITS | Encounter Summary ---
:1945 Author Organization [facility] Address [address] [place] [address] Care Team Providers Name Role Phone Chastity Davidson M.D. Primary Care Provider Unavailable Reason for Referral Outpatient (Routine) - Closed Specialty Diagnoses / Procedures Referred By Contact Refer red To Contact Diagnoses Primary Osteoarthritis Knee Right Primary Osteoarthritis Knee Left Hypertension Benign Renovascular Bonilla Bragg M.D. [address] [phone] Referral ID Status Reason Start Date Expiration Date Visits Requ ested Visits Authorized [id number] Closed 04/01/2018 04/01/2019 1 1 Scheduling Instructions We will be contacting you with more info rmation on this referral. An appointment will be scheduled for you. More information i s listed below. hysical Therapy (Routine) - Closed Specialty Diagnoses / Procedures Referred By Contact Refer red To Contact Physical Medicine and Diagnoses Aftercare Total Knee Arthroplasty Gabriela Hernandez [facility] Rehabilitation Procedures PT Evaluate and treat Regina Wood [address] [place] [phone] Referral ID Status Reason Start Date Expiration Date Visits Requ ested Visits Authorized [id number] Closed 04/01/2018 04/01/2019 12 12 Reason for Visit Auth/Cert Specialty Diagnoses / Procedures Referred By Contact Refer red To Contact Diagnoses Primary Osteoarthritis Knee Left Procedures AR ARTHRO KNEE CONDYLE&PLAT (TKA) ARTHROPLASTY REPLACEMENT TOTAL KNEE Referral ID Status Reason Start Date Expiration Date Visits Requ ested Visits Authorized [id number] 1 1 Encounter Details Date Type Department Care Team Description 03/30/2018 - Hospital Encounter [facility] Fausto Hoffman Primary Osteoarthritis Knee Right (Primary Dx[facility], Second [address] [place] [address] Primary Osteoarthritis Knee Left; Floor [place], [place] Hypertension Benign Renovasc ular [address] [facility] [phone] [place], [place] [phone] (Work) [phone] Social History Tobacco Use Types Packs/Day Years Used Date Smoking Tobacco: Former Cigarettes 0.3 35 Smokeless Tobacco: Never Comments: quit about 10 yrs ago Alcohol Use Standard Drinks/Week Comments Yes 3 (1 standard drink = 0.6 oz pure 2x or so per month 1 drink each alcohol) time Sex Assigned at Date Recorded Female 10/12/2017 8:[address] [facility] documented as of this encounter Last Filed Vital Signs Vital Sign Reading Time Taken Comments Blood Pressure 106/71 04/01/2018 11:22 AM CDT Pulse 77 04/01/2018 11:22 AM CDT Temperature 36.8 ??C (98.2 ??F) 04/01/2018 11:22 AM CDT Respiratory Rate 18 04/01/2018 11:22 AM CDT Oxygen Saturation 100% 04/01/2018 11:22 AM CDT Inhaled Oxygen Concentration - - Weight 86.5 kg (190 lb 11.2 oz) 03/30/2018 7:02 AM CDT Height 158 cm (5' 2.21) 03/30/2018 7:02 AM CDT Body Mass Index 34.65 03/30/2018 7:02 AM CDT documented in this encounter Discharge Summaries Gabriela Hernandez P.A.-C. - 04/01/2018 10:42 AM CDT DISCHARGE SUMMARY BRIEF OVERVIEW Discharge Provider: Fausto Hoffman D.O. Primary Care Providers: Chastity Davidson M.D. (General) [address] [place] [phone] Primary Care Provider Primary Care Provider Admission Date: 03/30/2018 Discharge Date: PRINCIPAL DIAGNOSIS Primary Osteoarthritis Knee Left SECONDARY DIAGNOSES Principal Problem: Primary Osteoarthritis Knee Left Active Problems: Primary Osteoarthritis Knee Right Resolved Problems: * No resolved hospital problems. * Operative Procedures: Scheduled (Keven), Completed (Comp) or Canceled (Can) Case IDs Date Procedure Surgeon Location Status [id number] 03/30/18 ARTHROPLASTY REPLACEMENT TOTAL KNEE Fausto Hoffman D.O. [facility] OR Comp DISCHARGE DISPOSITION Home or Self Care [1] OUTPATIENT FOLLOW UP Future Appointments Date Time Provider Department Center 04/12/2018 11:30 AM Gabriela Hernandez P.A.-C. ORS [facility] 05/10/2018 10:15 AM DX [facility] 01 DR RICARDO CALDERON [facility] 05/10/2018 11:00 AM Fausto Hoffman D.O. ORS [facility] 07/05/2018 10:15 AM DX [facility] [address] DR RICARDO CALDERON [facility] 07/05/2018 11:00 AM Gabriela Hernandez P.A.-C. ORS [facility] TEST RESULTS PENDING AT DISCHARGE DETAILS OF HOSPITAL STAY REASON FOR ADMISSION Primary Osteoarthritis Knee Left Primary Osteoarthritis Knee Right HOSPITAL COURSE This is a 72 year old female who underwent the above procedure on 03/30/[address] Hoffman. Please refer to his [...] questions and concerns wereanswered to her satisfaction. PERTINENT LAB VALUES Hemoglobin: 9.5 Hematocrit: 29.8 Platelets: 251 White Blood Cell Count: 6.3 VITAL SIGNS Temperature Core: 36.9 Heart Rate: 90 Systolic Blood Pressure: 116 Diastolic Blood Pressure: 73 CONSULTS ORDERED DURING THIS ADMISSION IP CONSULT [...] by mouth tablet daily. aspirin 81 mg chewable Chew 1 tablet (81 mg 90 tablet 0 05/17/2018 tablet total) 2 (two) times a day. oxyCODONE (ROXICODONE) 5 Take 1 tablet (5 mg 90 tablet 0 06/03/2018 mg immediate release total) by mouth tablet every 4 (four) hours as needed for moderate pain or score 4-6 of 10. sennosides-docusate Take 1 tablet by 30 tablet 0 04/01/2018 06/03/2018 sodium (SENOKOT-S) 8.6-50 mouth 2 (two) times mg per tablet a day. documented as of this encounter Progress Notes Nestor Frances P.T.A. - 04/01/2018 12:50 PM CDT Physical Therapy Inpatient Treatment Note SUBJECTIVE Patient Comments: Patient pleasant willing to participate in Joint Camp both a.m. and p.m. sessions. 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 OBJECTIVE Pain Assessment Pain Assessment: 0-10 Numeric Pain Intensity Scale Pain Score: 1 Pain Type: Surgical pain Pain Location: Knee Pain Orientation: Left Pain Descriptors: Aching Pain Onset: Ongoing Exercise - Protocol Total Joints Exercise: Total knee Total Joints Exercise Comment: 0-110 degrees . x 10 reps. Bed Mobility - Supine to Sit Level of Assistance: Independent Device: None Bed Mobility - Sit to Supine Level of Assistance: Independent Device: None Transfer - Sit to Stand # of Assistants: 1 Device: Front wheeled walker Level of Assistance: Modified Independent Transfer - Stand to Sit # of Assistants: 1 Level of Assistance: Modified Independent Device: Front wheeled walker Endurance Ambulation Level of Assistance: Modified Independent Device: Front wheeled walker Distance: 80 Meters Stairs # of Assistants: 1 Level of Assistance: Supervision/Set-up # Stairs: 5 Rails: 2 Device: No device Measures - Tools Assessment Measures - Tools Patient continues to show good progression. Patient is independent with home bed mobility transfers and ambulation. Patient ambulated independently 80 meters using front wheel walker. Patient received green feet. Had discussion of discharge planning and all questions were answered. Patient received front wheel walker. Patient plans to return to home later today. Plan Patient plans to return to home with help of , which would be appropriate from a therapy point of view. Patient agrees with the plan of care and goals. PATTERN PUNCHER Trackin Time Spent with Patient Group Therapy (min): 120 min Total Treatment Time (min): 120 min Functional G-code Worksheet TAT Bonilla Bragg M.D. - 04/01/2018 11:31 AM CDT INTERNAL MEDICINE PROGRESS NOTE Date of Admission: 03/30/2018 LOS: 2 days REASON FOR CONSULT: Medical comanagement SUBJECTIVE: Mary Jane Rockwell was seen and examined at the bedside along with nursing staff, this morning patient denies any chest pain, shortness of breath or palpitation. Her left upper extremity rash noted jared significantly improved. No significant events reported overnight. OBJECTIVE: VITAL SIGNS: Vitals: 04/01/18 1122 BP: 106/71 Pulse: 77 Resp: 18 Temp: 36.8 ??C SpO2: 100% PHYSICAL EXAMINATION: General: A pleasant patient lying comfortably on the recliner. Patient appears in no acute distress. HEENT: Atraumatic, normocephalic, mucosal membranes are moist. Skin: No rash Heart: S1, S2, I could not appreciate any murmur. Chest: Clear to auscultation bilaterally. Abdomen: Soft, nontender. Extremities: No edema. An aquacel noted placed at the Surgical site on left knee. Central nervous system: Patient is AO x3. Neurological examination is grossly intact. Intake/Output Summary (Last 24 hours) at 04/01/18 1131 Last data filed at 04/01/18 0435 Gross per 24 hour Intake 1180 ml Output 301 ml Net 879 ml DIAGNOSTIC DATA: LABS: Results from last 7 days Lab Units 04/01/18 0717 03/31/18 0729 WHITE BLOOD CELLS x10(9)/L 6.3 9.3 HEMOGLOBIN g/dL 9.5* 9.6* HEMATOCRIT % 29.8* 29.7* PLATELETS AUTO x10(9)/L 251 246 Results from last 7 days Lab Units 04/01/18 0717 03/31/18 0729 SODIUM mmol/L 139 138 POTASSIUM mmol/L 3.9 3.7 CHLORIDE mmol/L 103 101 BUN mg/dL 29* 24* CREATININE mg/dL 0.94 0.94 CALCIUM mg/dL 9.1 9.4 CURRENT INPATIENT MEDICATIONS: Scheduled Meds: acetaminophen 1,000 mg oral Q6H KEVEN aspirin 81 mg oral BID lisinopril 5 mg oral Daily multivitamin/mineral-adult 1 tablet oral Daily pantoprazole 40 mg oral Daily before breakfast sennosides-docusate sodium 1 tablet oral BID Continuous Infusions: PRN Meds:bisacodyl ??? calcium carbonate ??? dexamethasone ??? droperidol ??? benzocaine-menthol ??? morphine ??? naloxone ??? ondansetron ??? oxyCODONE OR oxyCODONE ??? polyethylene glycol ??? povidone iodine (Betadine) 15 mL in NaCl 0.9% 500 mL irrigation OSM ??? promethazine ASSESSMENT/PLAN: Delightful 72 year old female with HTN, GERD, Mendez's esophagus, osteoarthritis, GI bleeding 02/01 (colonoscopy & endoscopy reviewed but no clear source of bleeding on these reports). She is doingvery well post operatively. Today is postop day 2 ?? # Left total knee arthroplasty 03/30. Uncomplicated # Left upper extremity rash, improved # HTN on lisinopril # GERD on PPI ?? Plan: > Continue lisinopril with holding parameters (Hold SBP <120) > given currently blood pressure is on lower side, we will discontinue hydrochlorothiazide(as well as potassium supplements) > In regards to left upper extremityrash, it is significantly Improved. > patient has cleared by physical therapy team and is scheduled for discharge later today. From medicine standpoint, patient is stable to be discharged with recommendations to follow up with primarycare physician in 1 week, that visit her antihypertensive regimen should be further optimized. ?? Deep venous thrombosis prophylaxis: Per Orthopedic Service Code status: Full Code ADMINISTRATIVE BILLING TIME: Total time spent 25 minutes, 20 minutes spent in [id number] evaluation and coordination of care (This document was generated using voice recognition software and may contain errors including errors in grammar, punctuation and spellings as well as unintended word substitution errors. In order to expedite delivery, this note was not edited. If there are any questions or concerns, please feel free to contact the dictating provider for clarification) Bonilla Bragg M.D. - 03/31/2018 9:26 PM CDT INTERNAL MEDICINE PROGRESS NOTE Date of Admission: 03/30/2018 LOS: 1 day REASON FOR CONSULT: Medical comanagement SUBJECTIVE: Mary Jane Rockwell was seen and examined at the bedside along with nursing staff, this morning patient denies any chest pain, shortness of breath or palpitation. Patient did complain about minimal left upper extremity rash, But denied for any associated itching. OBJECTIVE: VITAL SIGNS: Vitals: 03/31/18 1854 BP: 106/72 Pulse: 83 Resp: 16 Temp: 36 ??C SpO2: 100% PHYSICAL EXAMINATION: General: A pleasant patient lying comfortably on the recliner. Patient appears in no acute distress. HEENT: Atraumatic, normocephalic, mucosal membranes are moist. Skin: Very mild left upper extremity rash Heart: S1, S2, I could not appreciate any murmur. Chest: Clear to auscultation bilaterally. Abdomen: Soft, nontender. Extremities: No edema. And aquacel noted placed at the Surgical site on left knee. Central nervous system: Patient is AO x3. Neurological examination is grossly intact. Intake/Output Summary (Last 24 hours) at 03/31/182125 Last data filed at 03/31/18 1355 Gross per 24 hour Intake 1310 ml Output 551 ml Net 759 ml Weight change: DIAGNOSTIC DATA: LABS: Results from last 7 days Lab Units 03/31/18 0729 WHITE BLOOD CELLS x10(9)/L 9.3 HEMOGLOBIN g/dL 9.6* HEMATOCRIT % 29.7* PLATELETS AUTO x10(9)/L 246 Results from last 7 days Lab Units 03/31/18 0729 SODIUM mmol/L 138 POTASSIUM mmol/L 3.7 CHLORIDE mmol/L 101 BUN mg/dL 24* CREATININE mg/dL 0.94 CALCIUM mg/dL 9.4 CURRENT INPATIENT MEDICATIONS: Scheduled Meds: acetaminophen 1,000 mg oral Q6H KEVEN aspirin 81 mg oral BID lisinopril 5 mg oral Daily multivitamin/mineral-adult 1 tablet oral Daily pantoprazole 40 mg oral Daily before breakfast sennosides-docusate sodium 1 tablet oral BID Continuous Infusions: PRN Meds:bisacodyl ??? calcium carbonate ??? dexamethasone ??? droperidol ??? benzocaine-menthol ??? morphine ??? naloxone ??? ondansetron ??? oxyCODONE OR oxyCODONE ??? polyethylene glycol ??? povidone iodine (Betadine) 15 mL in NaCl 0.9% 500 mL irrigation OSM ??? promethazine ASSESSMENT/PLAN: Delightful 72 year old female with HTN, GERD, Mendez's esophagus, osteoarthritis, GI bleeding 02/01 (colonoscopy & endoscopy reviewed but no clear source of bleeding on these reports). She is doingvery well post operatively. Today is postop day 1 ?? # Left total knee arthroplasty 03/30. Uncomplicated # Left upper extremity rash # HTN on lisinopril & HCTZ # GERD on PPI ?? Plan: > Continue lisinopril with holding parameters (Hold SBP <120) > Continue to hold HCTZ given blood pressure is still on lower side > Please call hospitalist purple team with questions > In regards to left upper extremityrash, this may be side effect to any of multiple medications she received while during service. Given it is very mild in nature, will continue to monitor at this time. ?? Deep venous thrombosis prophylaxis: Per Orthopedic Service per their protocol. Code status: Full Code ADMINISTRATIVE BILLING TIME: Total time spent 25 minutes, 18 minutes spent in [id number] evaluation and coordination of care (This document was generated using voice recognition software and may contain errors including errors in grammar, punctuation and spellings as well as unintended word substitution errors. In order to expedite delivery, this note was not edited. If there are any questions or concerns, please feel free to contact the dictating provider for clarification) Nestor Frances, P.TPadilla - 03/31/2018 1:00 PM CDT Physical Therapy Inpatient Treatment Note SUBJECTIVE Patient Comments: Patient pleasant and willing to participate and Joint Camp both a.m. and p.m. sessions. was present for both sessions. OBJECTIVE Pain Assessment Pain Assessment: 0-10 Numeric Pain Intensity Scale Pain Score: 1 Pain Type: Surgical pain Pain Location: Knee Pain Orientation: Left Exercise - Protocol Total Joints Exercise: Total knee Total Joints Exercise Comment: 3-110 degrees . x 10 reps. Transfer - Sit to Stand # of Assistants: 1 Device: Front wheeled walker Level of Assistance: Supervision/Set-up Transfer - Stand to Sit # of Assistants: 1 Level of Assistance: Supervision/Set-up Device: Front wheeled walker Endurance Ambulation # of Assistants: 1 Level of Assistance: Supervision/Set-up Device: Front wheeled walker Distance: 80 Meters Measures - Tools Assessment Measures - Tools Patient continues to show good progression. Patient showing independence with transfers and mobility. Patient ambulated 80 meters using front wheel walker independently. Patient received green feet. Patient received verbal and tactile cues for proper completion of TKA exercises. Will continue to progress as patient is able. Plan Patient plans to return to home with help of , which would be appropriate from a therapy point of view. Patient agrees with the plan of care and goals. PATTERN PUNCHER Trackin Time Spent with Patient Group Therapy (min): 120 min Total Treatment Time (min): 120 min Functional G-code Worksheet Gabriela Hernandez P.A.-C. - 03/31/2018 8:54 AM CDT SUBJECTIVE: Mary Jane was seen and examined this morning. She is POD 1 from a left total knee arthroplasty. No major concerns overnight. Patient admits to little to no pain today. She has been able to ambulate to her chair in the bathroom without issues. She Has not worked with physical therapy yet this morning. She was hoping to discharge home tomorrow.Denies numbness, tingling, nausea, and fevers. OBJECTIVE: VITALS: Vitals: 03/31/18 0722 BP: 104/68 Pulse: 85 Resp: 16 Temp: 36.2 ??C SpO2: 97% LABS: Recent Results (from the past 24 hour(s)) CBC with Differential Collection Time: 03/31/18 7:29 AM Result Value Hemoglobin 9.6 (L) Hematocrit 29.7 (L) Erythrocytes 3.12 (L) MCV 95.2 RBC Distrib Width 13.8 Platelet Count 246 Leukocytes 9.3 Neutrophils 7.65 (H) Lymphocytes 1.05 Monocytes 0.60 Eosinophils 0.01 (L) Basophils 0.01 Basic Metabolic Panel Collection Time: 03/31/18 7:29 AM Result Value Potassium, S 3.7 Sodium, S 138 Chloride, S 101 Bicarbonate, S 26 Anion Gap 11 Bld Urea Nitrog(BUN), S 24 (H) Creatinine, S 0.94 eGFR-Non Black 61 eGFR-Black 70 Calcium, Total 9.4 Glucose, S 151 (H) GENERAL: Patient is comfortably Sitting in a chair . Alert and oriented, in no [...] nontender. Brisk capillary refill. ASSESSMENT/PLAN: 1. POD 1 from Left total knee arthroplasty - Patient is doing well postoperatively. Vitals and labs are stable. - Aquacel dressing With minimal saturation and intact. - Pain is well controlled this morning - Weight-bearing as tolerated to the operative extremity - Physical therapy - Pain control - Ice and elevate - ASA 81 mg b.i.d. For DVT prophylaxis x 6 weeks - Keep Aquacel dressing in place, reinforced as needed - Disposition: Likely discharge home tomorrow depending on social Work and Physical therapy assessment 2. Acute blood loss anemia - Hemoglobin 9.6. Asymptomatic. Continue to monitor for now 3. Hypertension Gabriela Hernandez P.A.-C. - 03/31/2018 8:48 AM CDT Error Trudy Rainey L.S.W. - 03/22/2018 1:45 PM CDT Psychosocial Assessment SUBJECTIVE DEMOGRAPHIC INFORMATION Referral by: Referral Source: Early Screen for Discharge Planning Referral Reason: Psychosocial assessment, Discharge Planning Discharge Planning: Early screen discharge Person(s) present during interview: Patient Primary care clinic and provider: Chastity Davidson M.D. Primary Language: Romanian Rn Office services used: None. Legal Status: No legal concerns noted. Legal Decision Maker: Self Citizenship: [place] Citizen REASON FOR CONSULT Psychosocial assessment, Discharge Planning Auxiliary Equipment Tender contacted patient at home to complete pre-surgical discharge planning. Patient is a 72 y.o. female who is anticipated to undergo surgery with Dr. Hoffman on her knee. Patient shared she is currently independent with her ADL's and has no concerns of returning home. patient reports her and daughter will assist her as needed. Auxiliary Equipment Tender thanked patient for sharing her discharge plan and shared that physical therapy will also assess to make sure that is an appropriate and safe option. Patientexpressed understanding and had no questions at this time. Disclaimer: The patient was advised regarding the various topics to be interviewed during this evaluation. Patient consented to proceed. The information provided in the assessment is based on review ofthe medical record as well as the face to face interview with the patient. The patient was advised that the content of this interview will be shared with the health care team. It was discussed with thepatient that staff are mandated reporters and they reported understanding. Past Medical History: Diagnosis Date ??? Anemia ??? Arthritis Inflammatory (HCC) ??? Mendez's Esophagus ??? Gastroesophageal Reflux Disease NOS ??? Hemorrhage Gastrointestinal ??? Hypertension NOS ??? Primary Osteoarthritis Knee Left ??? Primary Osteoarthritis Knee Right Past Surgical History: Procedure Laterality Date ??? COLONOSCOPY N/A 02/01/2018 Procedure: COLONOSCOPY; Surgeon: Jazmyne Weaver M.D.; Location: [facility] ??? CYST REMOVAL ??? ESOPHAGOGASTRODUODENOSCOPY N/A 02/01/2018 Procedure: ESOPHAGOGASTRODUODENOSCOPY; Surgeon: Jazmyne Weaver M.D.; Location: [facility] ??? TONSILLECTOMY AND ADENOIDECTOMY N/A 1950 Tonsillectomy and adenoidectomy SOCIAL HISTORY Early growth and development: The patient met social and developmental milestones as expected. Family of Origin: Patient is . She lives with her spouse, Nima, of 48 years. They live in their home outside of [place], [place]. Patient has three adult children and states they are very supportive. Marital Status / Family / Household Status: Household information: Number of persons in household: 2 Relationships of persons in household: patient and spouse/SO Type of housing: Home Pets: Not discussed. Support Systems: Spouse, Children. We have not received permission to contact them. Primary caregiver: Self Spirituality / Sabianist / Culture: No jain affiliation History: None. Education: Not discussed. Employment: Retired Psychosocial Risk Factors impacting the patient: None noted. Abuse, Neglect, Maltreatment, Trauma: Current: None reported. Past: None reported. ENVIRONMENTAL SUPPORTS Current Living Situation: Private residence Patient's Home Environment: House Anticipated modifications to the patient's home environment: None FUNCTIONAL STATUS (ADL's and IADL's) Activities of Daily Living Functional Status: Independent Type of Residence: Private residence Level of Assistance: Independent Dressing: Independent Feeding: Independent Bathing: Independent Grooming: Independent Toileting: Independent Behavior: Oriented Communication: Can write, Talks, Understands speaking, Understands Romanian, Reads It is anticipated that the patient will need assistance with tasks appropriate to the patient's age/development, None. ASSISTIVE DEVICES Patient has the following equipment: Not discussed. Patient anticipates potentially needing the following additional equipment: Walker [employer]ACLE DATABASE MANAGER Formal and Informal Resources: The patient does not have an identified caregiver. FINANCES/INSURANCE Primary [place] [employer] [facility] [place] insurance: N/A Income Information Does the Patient have any Financial Concerns?: No Income Source: Social security ADVANCE DIRECTIVES Legal Decision Maker: Self OBJECTIVE Current psychological symptoms: Behaviors Observed: Calm, Pleasant Patient Level of Consciousness: Alert and oriented Status of Patient's Memory: Intact Patient Cooperation: Cooperative ASSESSMENT / PLAN IMPRESSION Patient was alert and oriented to person, place, time and situation. INTERVENTIONS 1. Psychosocial assessment completed. 2. Provided supportive services. 3. Provided education regarding the role of social work. 4. Provided education regarding referral resources and options. Patient educational needs assessed: ready to learn with no apparent learning barriers. Education on treatment plan provided according to patient???s preferred learning style. Patient expressed understanding of the information provided and expressed the intention, except where otherwise noted, to follow through with the recommendations. PLAN ?? Patient is a 72 y.o. female who is anticipated to undergo surgery with Dr. Hoffman on March 30. Auxiliary Equipment Tender contacted patient to complete presurgical discharge planning. Patient desires to return home at discharge as her will assist as well as her daughter. Patient had no questions or concerns for medical underwriter at this time. Anticipated barriers to the transition of care/plan: None noted. Lary Bethea 03/22/2018 documented in this encounter H&P Notes Fausto Hoffman D.O. - 03/30/2018 7:18 AM CDT INTERVAL HISTORY AND PHYSICAL PRE-PROCEDURE [...] obtained. Fausto Hoffman D.O. Source Note - Fausto Hoffman D.O. - 03/03/2018 2:45 PM CDT SUBJECTIVE Pain reported: REASON FOR CONSULT Mary Jane Rockwell is a 72 y.o. female who presents for evaluation of No chief complaint on file. and is under the care of Chastity Davidson M.D.. HISTORY OF PRESENT ILLNESS patient is a very pleasant 72-year-old female presenting at the request of Dr. Chastity Davidson M.D. for evaluation left greater than right knee pain. This is been ongoing for some time without specific injury or trauma that she recall. She does have pain in her left knee that will give out with activity. Minimal symptoms at rest it will only awaken her on occasion. She does take Tylenol with norelief in symptoms. No other treatment up to this point. Her current list of health issues include: #1 Primary Osteoarthritis Knee Right #2 Primary Osteoarthritis Knee Left #3 Hypertension Benign Renovascular #4 Reflux Esophageal #5 Arthropathy #6 Hemorrhage Gastrointestinal #7 Anemia #8 Screening Cancer Colon Her surgical history is notable for: Past Surgical History: Procedure Laterality Date ??? COLONOSCOPY N/A 02/01/2018 Procedure: COLONOSCOPY; Surgeon: Jazmyne Weaver M.D.; Location: [facility] ??? ESOPHAGOGASTRODUODENOSCOPY N/A 02/01/2018 Procedure: ESOPHAGOGASTRODUODENOSCOPY; Surgeon: Jazmyne Weaver M.D.; Location: [facility] ??? TONSILLECTOMY AND ADENOIDECTOMY N/A 1950 Tonsillectomy and adenoidectomy Tobacco history is History Smoking Status ??? Former Smoker ??? Packs/day: 0.25 ??? Years: 35.00 ??? Types: Cigarettes Smokeless Tobacco ??? Never Used . The following portions of the patient's history were reviewed and updated as appropriate: allergies,current medications, family history, medical history, social history, surgical history and problem list. REVIEW OF SYSTEMS All other systems reviewed and are negative. OBJECTIVE body mass index is unknown because there is no height or weight on file. PHYSICAL EXAM Ortho Exam General Appearance: Appears to be their stated age and healthy. Body habitus: normal. The patient isalert and oriented to person, place, and time. The patient's mood appears good. HEENT: Normocephalic, extraocular movements intact Respiratory: Respirations are unlabored Psych: Patient has a normal mood and affect Extremities: The 1st evaluate the patient's left knee. No surrounding erythema or ecchymosis. No significant knee effusion today. She is able fully extend the knee and flex to approximately 110??. Retropatellar crepitance is noted. Lateral greater than medial joint line tenderness. Knee is grossly stable ligamentous testing. Negative Homans. She has intact EHL FHL dorsiflexion and plantar flexion. Sensations are intact. Cap fill is brisk. Evaluation of the right knee is very similar. Again no erythema ecchymosis or muscle atrophy. No significant effusion. She has full extension and flexion to 120??. Mild crepitance noted with range of motion testing. Knee is stable ligamentous testing. Mild joint line tenderness. She is neurovascular intact. IMAGING Multiple radiographs of bilateral knees were obtained reviewed. X-rays do not demonstrate any acute process. There is significant tricompartmentaldegenerative changes to the right knee. 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 The left knee also demonstrates advanced degenerative changes with tricompartmental changes and loss of lateral joint space. ASSESSMENT / PLAN #1 Primary Osteoarthritis Knee Right #2 Primary Osteoarthritis Knee Left Today we had a lengthy discussion with patient regarding knees. We discussed the natural progressionof osteoarthritis. She is unhappy with her knees in wish to proceed with surgery. I discussed the risks, benefits, and alternatives to further non-operative versus surgical treatment. At no time were any guarantees implied or stated. Patient expressed understanding and a preference to proceed with surgery. Informed consent was obtained. At the earliest mutually convenient time we will schedule her for left total knee arthroplasty. The right knee will likely be performed later thisyear. She voiced understanding agreement this plan. documented in this encounter Consult Notes Debbie Ram O.T. - 03/31/2018 3:11 PM CDT Occupational Therapy Inpatient Evaluation/Treatment SUBJECTIVE Principal Problem: Primary Osteoarthritis Knee Left Reason for Referral: discharge disposition and ADL education History of Present Illness: L TKA Onset Date: 03/30/18 Family/Caregiver Present: No Patient/Caregiver Goals: return to home OBJECTIVE Pain Assessment Pain Assessment: 0-10 Numeric Pain Intensity Scale Pain Score: 0 - No pain Home Equipment Gait Devices: Walker rolling or standard Type of Home: House Home Layout: One level, Laundry in basement Home Access: Stairs to enter with rails Entrance Stairs-Rails: Right Entrance Stairs-Number of Steps: 2 Bathroom Shower/Tub: Tub/shower unit Bathroom Toilet: Comfort height Level of [place]: Independent with ADLs and functional transfers, Independent with homemaking with ambulation Lives With: Spouse Receives Help From: Family ADL Assistance: Independent Homemaking Assistance: Independent (was receiving some assist with laundry from spouse) Driving: Independent Current Level of Function LE Dressing LE Dressing Comments: Patient was educated regarding how to complete lower extremity dressing appropriately in order to adhere to precautions. She was able to verbalize comprehension. She was able to complete donning/doffing socks independently. Noted that patient did cross legs for one attempt of donning socks. She was provided with education as to how to complete more appropriately and safely. Bed Mobility - Supine to Sit Level of Assistance: Independent Comments: Bed was raised to the appropriate taller height of her bed at home. Transfer - Sit to Stand Device: Front wheeled walker Level of Assistance: Modified Independent Transfers - Shower/Tub # of Assistants: 1 Device: FWW Level of Assistance: Supervision/Set-up Comments: Patient was provided with education as to how to complete in a safe manner. Cognition Cognition Comments: No overt cognitive deficits noted at time of initial evaluation. Patient did demonstrate some impulsivity and was educated regarding the importance of taking her time to complete tasks. AM-PAC Activity: How much help from another person does the patient currently need??? Putting on and taking off regular lower body clothing?: None Putting on and taking off regular upper body clothing?: None Taking care of personal grooming such as brushing teeth?: None Bathing (including washing, rinsing, drying)?: A Little Toileting, which includes using toilet, bedpan, or urinal?: None Eating meals?: None AM-PAC Activity: Score Daily Activities Raw Score (max 24): 23 Daily Activities Standardized Score: 51.12 Daily Activities CMS 0-100% Score: 15.86 Daily Activities CMS Modifier: CI Assessment Patient is a 72 year old female who was admitted on 03/30/18 to undergo a L TKA. Prior to her hospitalization, patient was residing in a [facility] with her spouse where she was independent in all ADLs/IADLs. Patient participated in OT initial evaluation on this date with activities as detailed above. She diddemonstrate one instance of impulsivity and was educated regarding this safety hazard. Otherwise, noadditional overt concerns were noted at time of evaluation. Patient is appropriate to return to homewith spouse at time of discharge. No further acute OT needs. Rehab Potential: Excellent Occupational Profile and History review: Brief Performance Deficits: 1 - 3 performance deficits Evaluation Complexity: Low Barriers to Discharge: None Discharge Recommendation: Ongoing skilled outpatient therapy recommended (home with spouse) Plan OT Frequency: One-time visit OT Duration: 1x OT evaluation Inpatient OT Received On Date: 03/31/18 Requires Inpatient Follow-Up: No Plan: Plan of care initiated Patient agrees with the plan of care and goals. Time Spent with Patient OT Evaluation (min): 15 min Time Calculation Total Treatment Time (min): 15 min Functional G-code Worksheet Daily Activities Raw Score (max 24): 23 Daily Activities Standardized Score: 51.12 Daily Activities CMS 0-100% Score: 15.86 Daily Activities CMS Modifier: CI Trudy Rainey L.S.W. - 03/31/2018 8:10 AM CDTAssociated Order(s): IP CONSULT TO CARE MANAGEMENT SUBJECTIVE Patient is a 72 y.o. female admitted to [facility] on 03/30/2018 due to Primary Osteoarthritis Knee Left [M17.12] Primary Osteoarthritis Knee Right [M17.11]. Auxiliary Equipment Tender is familiar with patient as medical underwriter previously complete a full Psychosocial Assessment on March 22, 2018. At that time, patients' plan was to return home with her . OBJECTIVE Auxiliary Equipment Tender received the above consult. Auxiliary Equipment Tender reviewed physical therapy note and notes patient is anticipated to return home with her family upon discharge. Auxiliary Equipment Tender will continue to be available as needs arise. ASSESSMENT / PLAN ASSESSMENT Patient was not assessed. PLAN 1. Care team reporting patient is expected to discharge to home when medically stable. 2. There are no identified social work needs at this time. 3. Social work will assist as needed and requested. Lary Bethea 03/31/2018 Ziyad Gavin P.T. - 03/30/2018 3:00 PM CDT Physical Therapy Inpatient Evaluation and Treatment SUBJECTIVE patient very pleasant individual accompanied by her and daughter. Patient reportsstill some numbness and had some incontinence of urine in the bed. Patient lives in a 1 level home with 2 steps in a railing. She has a standard and a 4 wheeled walker available to her at home as well as a cane. Patient has been independent with mobility and ADLs up and does plan but limited distance ambulation. Primary Osteoarthritis Knee Left Reason for Referral: Mobility and discharge plan History of Present Illness: postop left total knee Onset Date: 03/30/18 Patient Active Problem List Diagnosis ??? Hypertension Benign Renovascular ??? Reflux Esophageal ??? Arthropathy ??? Hemorrhage Gastrointestinal ??? Anemia ??? Screening Cancer Colon ??? Primary Osteoarthritis Knee Right ??? Primary Osteoarthritis Knee Left OBJECTIVE Patient's upper extremities and right lower extremity within functional limits active range of motion. Patient is contact guard assist with supine to sit to stand. Patient was assisted with min to contact guard assist to a commode and into recliner with a wheeled walker. Patient is able take 1-2 small steps with a walker. Reviewed postop isometrics with the patient. Reviewed plan of care with the patient in agreement with the plan and hopes to go home with her at discharge. Pain Assessment Pain Score: 0 - No pain Pain Interventions: Cold applied Cognition Orientation: Oriented X4 Precautions Weight Bearing Status: weightbear as tolerated Cognition Orientation: Oriented X4 Measures - Tools AM-PAC Mobility: How much difficulty does the patient currently have??? Turning over in bed (including adjusting bedclothes, sheets and blankets)?: A Little Sitting down on and standing up from a chair with arms (e.g., wheelchair, bedside commode, etc.): A Little Moving from lying on back to sitting on the side of the bed?: A Little AM-PAC Mobility: How much help from another person does the patient currently need??? Moving to and from a bed to a chair: A Little Need to walk in hospital room?: A Lot Climbing 3-5 steps with a railing?: A Lot AM-PAC Mobility: Score Basic Mobility Raw Score: 16 Basic Mobility Standardized Score: 40.78 CMS 0-100% Score: 54.16 % Basic Mobility CMS Modifier: CK Assessment Clinical Impression Patient contact guard to Min assist with 1st time up. Patient will go home with family assist at discharge. Rehab Potential: Excellent Discharge Recommendation: Ongoing skilled outpatient therapy recommended (Home with family) Recommendation: Home independently (With family) Measures - Tools Plan Will progress as able. Treatment/Interventions: Therapeutic exercise, Therapeutic functional activity, Gait training PT Frequency: Twice a day PT Duration: one week PT Goal #1: patient be independent with bed mobilit PT Goal #1 Date: 04/06/18 PT Goal #2: patient be independent with ambulation with PT Goal #2 Date: 04/06/18 PT Goal #3: patient be independent with a total knee home exercise program 0-90 degrees knee flexion PT Goal #3 Date: 04/06/18 PT Goal #4: patient independent on stairs with a railing PT Goal #4 Date: 04/06/18 Patient agrees with the plan of care and goals. Time Spent with Patient PT Evaluation (min): 14 min Therapeutic Activity (min): 14 min Total Timed Units (min): 14 min Total Treatment Time (min): 28 min Functional G-code Worksheet Basic Mobility Raw Score: 16 Basic Mobility Standardized Score: 40.78 CMS 0-100% Score: 54.16 % Basic Mobility CMS Modifier: CK Balwinder Chaudhry M.D. - 03/30/2018 2:51 PM CDTAssociated Order(s): IP CONSULT TO HOSPITAL INTERNAL MEDICINE CONSULT- HOSPITALIST TIME OF NOTE: 2:51 PM Requesting Physician: Fausto Hoffman D.O. Reason for Consult: Post op management after ARTHROPLASTY REPLACEMENT TOTAL KNEE (Left Knee) History of present illness: Patient is a 72 y.o. female who presents for elective left TKA. She is doing well after surgery and has no complaints. We discussed her current medications. Reviewed history of GERD, HTN, Mendez's esophagus, hiatal hernia, hemorrhoids. The patient denies any headaches, vision changes, hearing problems, problems swallowing, chest pain,shortness of breath, Palpitations, cough, sputum, abdominal pain, nausea, vomiting, constipation, diarrhea, dysuria, blood in urine/ stool, focal tingling/ weakness/ numbness, fevers or chills. Past Medical History: Diagnosis Date ??? Anemia ??? Arthritis Inflammatory (HCC) ??? Mendez's Esophagus ??? Gastroesophageal Reflux Disease NOS ??? Hemorrhage Gastrointestinal ??? Hypertension NOS ??? Primary Osteoarthritis Knee Left ??? Primary Osteoarthritis Knee Right Past Surgical History: Procedure Laterality Date ??? COLONOSCOPY N/A 02/01/2018 Procedure: COLONOSCOPY; Surgeon: Jazmyne Weaver M.D.; Location: [facility] ??? CYST REMOVAL ??? ESOPHAGOGASTRODUODENOSCOPY N/A 02/01/2018 Procedure: ESOPHAGOGASTRODUODENOSCOPY; Surgeon: Jazmyne Weaver M.D.; Location: [facility] ??? TONSILLECTOMY AND ADENOIDECTOMY N/A 1950 Tonsillectomy and adenoidectomy Prescriptions Prior to Admission Medication Sig Dispense Refill Last Dose ??? acetaminophen (for_TYLENOL 8 HR) 650 mg ER tablet Take 1,300 mg by mouth 2 (two) times a day. Asneeded 03/30/2018 at 0500 ??? CALCIUM CARBONATE/VITAMIN D3 (CALCIUM WITH VITAMIN D ORAL) Take by mouth daily. 03/29/2018 at Unknown time ??? hydroCHLOROthiazide (for_HYDRODIURIL) 25 mg tablet Take 1 tablet (25 mg total) by mouth daily. 90 tablet 3 03/29/2018 at Unknown time ??? lisinopril (for_PRINIVIL,ZESTRIL) 5 mg tablet Take 1 tablet (5 mg total) by mouth daily. 90 tablet 3 03/29/2018 at Unknown time ??? multivitamin capsule Take by mouth daily. Past Month at Unknown time ??? pantoprazole (for_PROTONIX) 20 mg EC tablet Take 1 tablet (20 mg total) by mouth daily. 90 tablet 3 03/30/2018 at Unknown time ??? potassium chloride (K-TAB) 20 mEq CR tablet Take 99 mEq by mouth daily. 03/30/2018 at Unknown time Allergies Allergen Reactions ??? Gentamicin Other (see comments) Made my eyes worse ??? Neosporin (Mjk-Pml-Utkhu) [Picbvvqg-Vyohyazfuv-Iflvtmcqv] Other (see comments) ??? Tobramycin Other (see comments) Made my eyes worse Social History Substance Use Topics ??? Smoking status: Former Smoker Packs/day: 0.25 Years: 35.00 Types: Cigarettes ??? Smokeless tobacco: Never Used Comment: quit about 10 yrs ago ??? Alcohol use 1.8 oz/week 3 Glasses of wine per week Comment: 2x or so per month 1 drink each time Family History Problem Relation Age of Onset ??? Breast cancer Mother ??? Prostate cancer Grandfather ??? Lung cancer Grandfather ??? Parkinsons disease Aunt ??? Dementia Grandmother ??? Colon cancer Father ??? Hypertension Son ??? Anxiety State, Unspecified Son ??? Alcohol consumption Son ??? Hypertension Son Review of Systems: Pertinent review of systems is as noted in the Interval history of present illness(HPI) above. PHYSICAL EXAM Vitals: Vitals: 03/30/18 1255 03/30/18 1300 03/30/18 1330 03/30/18 1400 BP: 117/71 131/73 129/63 BP Location: Patient Position: Pulse: 69 65 72 83 Resp: 12 18 18 20 Temp: (!) 35.9 ??C (!) 35.9 ??C (!) 35.9 ??C TempSrc: SpO2: 100% 98% 99% 98% Weight: Height: General: The patient is pleasant, awake and appears comfortable. Skin: Warm and no cyanosis Eyes: EOMI, conjunctivae: clear. HENT: Mucosae - moist, Neck Supple Chest: CTA b/l, b/l symmetrical breath sounds CV: S1S2+, RRR, no JVD GI: Soft, NTND, BS+ Genitourinary: No suprapubic pain Neurologic: AAO*3, no new focal deficits Extremities: No edema Left TKA, dressed Imaging Studies: DX Knee Left 2 Views (Results Pending) Medications: Scheduled Meds: acetaminophen 1,000 mg oral Q6H KEVEN [START ON 03/31/2018] aspirin 81 mg oral BID ceFAZolin 2 g intravenous Q8H fentaNYL ketorolac 15 mg intravenous Q6H KEVEN [START ON 03/31/2018] lisinopril 5 mg oral Daily midazolam (PF) [START ON 03/31/2018] multivitamin/mineral-adult 1 tablet oral Daily [START ON 03/31/2018] pantoprazole 40 mg oral Daily before breakfast sennosides-docusate sodium 1 tablet oral BID Continuous Infusions: NaCl 0.9% infusion 75 mL/hr Last Rate: 75 mL/hr (03/30/18 1412) PRN Meds: bisacodyl ??? calcium carbonate ??? dexamethasone ??? droperidol ??? HYDROmorphone ??? benzocaine-menthol ??? naloxone ??? ondansetron ??? oxyCODONE OR oxyCODONE ??? polyethylene glycol ??? povidone iodine (Betadine) 15 mL in NaCl 0.9% 500 mL irrigation OSM ??? promethazine ??? vancomycin ASSESSMENT AND PLAN: Delightful 72 year old female with HTN, GERD, Mendez's esophagus, osteoarthritis, GI bleeding 02/01 (colonoscopy & endoscopy reviewed but no clear source of bleeding on these reports). She is doingvery well post operatively. # Left total knee arthroplasty 03/30. Uncomplicated # HTN on lisinopril & HCTZ # GERD on PPI Plan: > Continue lisinopril with hold parameters (Hold SBP <120) > Hold HCTZ until BP re-assessed 03/31 by hospitalist > Please call hospitalist purple team with questions Total time spent 60 minutes, 50 minutes spent in twuf-dy-orqa evaluation and coordination of care Balwinder Chaudhry M.D. 03/30/2018 2:51 PM (This document was generated using voice recognition software and may contain errors including errors in grammar, punctuation and spellings as well as unintended word substitution errors. In order to expedite delivery, this note was not edited. If there are any questions or concerns, please feel free to contact the dictating provider for clarification) documented in this encounter Nursing Notes Belen Elias R.N. - 04/01/2018 2:18 PM CDT INPATIENT DISCHARGE SUMMARY Discharge Provider: Fabiola att. providers found Admission Date: 03/30/2018 Discharge Date: 04/01/2018 DISCHARGE DISPOSITION Home/Self Care CONDITION AT DISCHARGE stable TREATMENTS None DEVICES/EQUIPMENT Walker [employer] Physical Therapy MODE OF DISCHARGE Wheelchair TRANSPORTATION Private Vehicle ACCOMPANIED BY Nurse and Family: daughter All belongings sent home with patient. Mina Cardoza R.N. - 04/01/2018 12:44 AM CDT Goals: Patient to report good sleep hygiene and adequate pain control for the shift. Identify possible barriers to meeting goals/advancing plan of care: none evident Stability of the patient: Moderately Stable - Low risk of patient condition declining or worsening End of Shift Summary: Patient stated receiving great sleep for the shift. Pain was well controlled, reduced PRN medication @ 0400 due to reduced pain. Patient states she thinks she is ready for discharge after today's therapy sessions. Portia Purvis R.N. - 03/31/2018 10:30 PM CDT Goals: Clinical Goals for the Shift: Patient will have adequate pain control and will use call light when needing assistance. Identify possible barriers to meeting goals/advancing plan of care: none Stability of the patient: Moderately Stable - Low risk of patient condition declining or worsening End of Shift Summary: Patient calling appropriately. Patient reporting pain improvement with PRN. Patient asks for PRNs when needed. Patient walking independently in halls and room. Meenakshi Lucero R.N. - 03/31/2018 1:16 PM CDT Goals: Adequate pain control, participate in joint camp Identify possible barriers to meeting goals/advancing plan of care: none Stability of the patient: Moderately Stable - Low risk of patient condition declining or worsening End of Shift Summary: Pt reported adequate pain control with oxy and tylenol. Participated in joint camp and obtained her green feet. Lora Taylor R.N. - 03/31/2018 5:48 AM CDT Goals: Clinical Goals for the Shift: Patient will have adequate pain control and will use call light when needing assistance. Identify possible barriers to meeting goals/advancing plan of care: None. Stability of the patient: Moderately Stable - Low risk of patient condition declining or worsening End of Shift Summary: Patient's pain has been well controlled with scheduled tylenol and toradol. She rates her pain 0-1/10 when lying still and 2-3 when moving. Patient used her call light appropriately when needing assistance to the bathroom. She tolerated ambulating well and slept between cares. iG Schwab R.N. - 03/30/2018 7:14 PM CDT Goals: Adequate pain control. Encourage activity as tolerated. Identify possible barriers to meeting goals/advancing plan of care: None Stability of the patient: Moderately Stable - Low risk of patient condition declining or worsening End of Shift Summary: Pain is adequately controlled with scheduled Tylenol and scheduled Toradol. Noother significant changes and pt remains fall free. documented in this encounter OR Notes Op Note - Fausto Hoffman D.O. - 03/30/2018 9:48 AM CDT FULL OP NOTE Procedure(s): ARTHROPLASTY REPLACEMENT TOTAL KNEE (Left) Surgeon(s) and Role: * Fausto Hoffman D.O. - Primary Anesthesia Type: Regional Pre-Operative Diagnosis: Primary Osteoarthritis Knee Left [M17.12] Post-Operative Diagnosis: Findings: Complications: Description of Procedure: MANAGER FIXED INCOME: Ileana Hernandez PA-C -The physician personal banking assistant was necessary in the surgical case as described above. The presence of a skilled physician personal banking assistant was integral for patient positioning, retraction, component implantation, and wound closure. DVT PROPHYLAXIS: Intermittent Compression devices for DVT prophylaxis were placed on the non-operative lower extremity INFECTION CONTROL l: This procedure was performed in a laminar airflow room. The surgical team wore total body exhaust suits. . Preoperative prophylactic antibiotics were given intravenously following appropriate S.C.I.P protocol. SURGICAL INDICATIONS: This is a 72 y.o. year old female with a history of pain and disability from progressive deterioration of the knee. Conservative management efforts have failed. This patient has elected to proceed with joint replacement surgery. The details of the procedure as well as the postoperative protocol and long-term prognosis have been reviewed and are understood by the patient. Any andall questions have been answered. SURGICAL CONSENT: I discussed the risks, benefits, [...] Implant Name Type Inv. Item Serial No. Cane Burner Lot No. [id number] No. Used Action PALACOS R BONE CEMENT Knee Implant [employer] [id number] Left 2 Implanted KN FEM ATT LT CMNT BEENA SZ-4N - [id number] Knee Implant KN FEM ATT LT CMNT BEENA SZ-4N Depuy Spine [id number] Left 1 Implanted BSPLT TIB ATT ROT SZ3 - [id number] Knee Implant BSPLT TIB ATT ROT SZ3 [employer] [id number] Left 1 Implanted PAT ATT MDLZD 35 - [id number] Knee Implant PAT ATT MDLZD 35 Dep[employer] Spine [id number] Left 1 Implanted INS TIB ATT ROT PS SZ4 7 - [id number] Knee Implant INS TIB ATT ROT PS SZ4 7 [employer] [id number] Implanted Intra-op Medications Date/Time Order Dose Route Action Action by 03/30/2018 1039 EPINEPHrine 0.2 mg, ketorolac 30 mg, ropivacaine (PF) 300 mg in NaCl 0.9% injectionperiarticular Given Sergo Hoffman 03/30/2018 1058 tranexamic acid 1 g in NaCl 0.9% IVPB 1 g intravenous Bolus Charleen Garcia 03/30/2018 0938 tranexamic acid 1 g in NaCl 0.9% IVPB 1 g intravenous New Bag Charleen Garcia 03/30/2018 1052 vancomycin injection 1 g Given Sergo Hoffman D.O. documented in this encounter Plan of Treatment Scheduled Referrals Name Type Priority Associated Diagnoses Order S chedule Post Hospital Outpatient Referral Routine Primary Osteoarthrit is Expected: Visit Primary Knee Right 04/08/2018 Care Primary Osteoarthritis (Appr oximate), Knee Left Expires: Hypertension Benign 04/01/20 21 Renovascular documented as of this encounter Procedures Procedure Name Priority Date/Time Associated Diagnosis Comme nts CBC WITH Routine 04/01/2018 7:17 Results for DIFFERENTIAL, B AM CDT this procedu re are in the results section. BASIC METABOLIC Routine 04/01/2018 7:17 Results f or PANEL, S/P AM CDT this procedure are in the results section. CBC WITH Routine 03/31/2018 7:29 Results for DIFFERENTIAL, B AM CDT this procedu re are in the results section. BASIC METABOLIC Routine 03/31/2018 7:29 Results f or PANEL, S/P AM CDT this procedure are in the results section. DX KNEE LEFT 2 RAD - Routine 03/30/2018 Results for VIEWS (most inpatients 12:32 PM CDT this proced ure and all are in the outpatients) results section. ADULT OXYGEN Routine 03/30/2018 THERAPY 11:35 AM CDT ARTHROPLASTY 03/30/2018 9:12 Primary REPLACEMENT TOTAL AM CDT Osteoarthritis Knee KNEE Left documented in this encounter Results (ABNORMAL) Basic Metabolic Panel (04/01/2018 7:17 AM CDT) P athologist Signature Potassium, S 3.9 3.6 - 5.2 04/01/2018 [facility] mmol/L 7:57 AM T [facility] Sodium, S 139 135 - 145 04/01/2018 [facility] mmol/L 7:57 AM T [facility] Chloride, S 103 98 - 107 04/01/2018 [facility] mmol/L 7:57 AM T [facility] Bicarbonate, S 25 22 - 29 04/01/2018 [facility] mmol/L 7:57 AM [facility] Anion Gap 11 7 - 15 04/01/2018 [facility] 7:57 AM [facility] BUN (Blood Urea 29 (H) 6 - 21 04/01/2018 [facility] Nitrogen), S mg/dL 7:57 AM T [facility] Creatinine 0.94 0.59 - 04/01/2018 [facility] 1.04 mg/dL 7:57 AM [facility] eGFR-Non 61 >=60 04/01/2018 [facility] Black/ mL/min/BSA 7:57 AM T [facility] Comment: ----ADDITIONAL INFORMATION---- Estimated GFR calculated using the 2009 CKD_EPI creatinine equation. eGFR-Black/ 70 >=60 mL/min/BSA 2017 7:57 AM [facility] Comment: ----ADDITIONAL INFORMATION---- Estimated GFR calculated using the 2009 CKD_EPI creatinine equation. Calcium, Total, S 9.1 8.8 - 10.2 mg/dL 04/01/2018 7 :57 AM CDT [facility] Glucose, S 105 70 - 140 mg/dL 04/01/2018 7:57 AM CDT [facility] Specimen Anatomical Collection Method Collection Time Receive d Time (Source) Location / / Volume Laterality Blood (Blood, 04/01/2018 7:17 AM 04/01/20 18 7:21 Venous) CDT AM CDT Balwinder Chaudhry M.D. LAB BLOOD ADD-ON Performing Organization Address City/State/[facility] Code Phon e Number [place] [id number] [place] [address] LAB (ABNORMAL) CBC with Differential (04/01/2018 7:17 AM CDT) [facility] Method Time Signature Hemoglobin 9.5 (L) 11.6 - 04/01/2018 [facility] 15.0 g/dL 7:28 AM [facility] Hematocrit 29.8 (L) 35.5 - 04/01/2018 [facility] 44.9 % 7:28 AM [facility] Erythrocytes 3.10 (L) 3.92 - 04/01/2018 [facility] 5.13 7:28 AM [facility] x10(12)/L [facility] MCV 96.1 78.2 - 04/01/2018 [facility] 97.9 fL 7:28 AM [facility] RBC Distrib Width 13.8 12.2 - 04/01/2018 [facility] 16.1 % 7:28 AM [facility] Platelet Count 251 157 - 371 04/01/2018 [facility] x10(9)/L 7:28 AM CDT [facility] Leukocytes 6.3 3.4 - 9.6 04/01/2018 [facility] x10(9)/L 7:28 AM CDT [facility] Neutrophils 3.40 1.56 - 04/01/2018 [facility] 6.45 7:28 AM CDT [facility] x10(9)/L [facility] Lymphocytes 2.11 0.95 - 04/01/2018 [facility] 3.07 7:28 AM CDT HEALTH x10(9)/L [facility] Monocytes 0.67 0.26 - 04/01/2018 [facility] 0.81 7:28 AM CDT HEALTH x10(9)/L [facility] Eosinophils 0.09 0.03 - 04/01/2018 [facility] 0.48 7:28 AM CDT HEALTH x10(9)/L [facility] Basophils 0.02 0.01 - 04/01/2018 [facility] 0.08 7:28 AM CDT [facility] x10(9)/L [facility] Specimen Anatomical Collection Method Collection Time Receive d Time (Source) Location / / Volume Laterality Blood (Blood, 04/01/2018 7:17 AM 04/01/20 18 7:21 Venous) CDT AM CDT Gabriela Hernandez P.A.-C. LAB BLOOD ADD-ON Performing Organization Address City/State/ZIP Code Phon e Number [facility] [address] [place] [address] LAB (ABNORMAL) Basic Metabolic Panel (03/31/2018 7:29 AM CDT) P athologist Signature Potassium, S 3.7 3.6 - 5.2 03/31/2018 [facility] mmol/L 8:28 AM CDT [facility] Sodium, S 138 135 - 145 03/31/2018 [facility] mmol/L 8:28 AM CDT [facility] Chloride, S 101 98 - 107 03/31/2018 [facility] mmol/L 8:28 AM CDT [facility] Bicarbonate, S 26 22 - 29 03/31/2018 [facility] mmol[facility]L 8:28 [facility] Anion Gap 11 7 - 15 03/31/2018 [facility] 8:28 AM [facility] BUN (Blood Urea 24 (H) 6 - 21 03/31/2018 [facility] Nitrogen), S mg/dL 8:28 AM [facility] Creatinine 0.94 0.59 - 03/31/2018 [facility] 1.04 mg/dL 8:28 AM [facility] eGFR-Non 61 >=60 03/31/2018 [facility] Black/ mL/min/BSA 8:28 AM [facility] Comment: ----ADDITIONAL INFORMATION---- Estimated GFR calculated using the 2009 CKD_EPI creatinine equation. eGFR-Black/ 70 >=60 mL/min/BSA 2017 8:28 AM [facility] Comment: ----ADDITIONAL INFORMATION---- Estimated GFR calculated using the 2009 CKD_EPI creatinine equation. Calcium, Total, S 9.4 8.8 - 10.2 mg/dL 03/31/2018 8:28 AM [facility] Glucose, S 151 (H) 70 - 140 mg/dL 03/31/2018 8:28 AM [facility] Specimen Anatomical Collection Method Collection Time Receive d Time (Source) Location / / Volume Laterality Blood (Blood, 03/31/2018 7:29 AM 03/31/20 18 7:43 Venous) CDT AM CDT Balwinder Chaudhry M.D. LAB BLOOD ADD-ON Performing Organization Address City/State/ZIP Code Phon e Number [facility] [address] [place] [address] LAB (ABNORMAL) CBC with Differential (03/31/2018 7:29 AM CDT) [facility] Method Time Signature Hemoglobin 9.6 (L) 11.6 - 03/31/2018 [facility] 15.0 g/dL 7:47 AM [facility] Hematocrit 29.7 (L) 35.5 - 03/31/2018 [facility] 44.9 % 7:47 AM [facility] Erythrocytes 3.12 (L) 3.92 - 03/31/2018 [facility] 5.13 7:47 AM CDT [facility] x10(12)/L [facility] MCV 95.2 78.2 - 03/31/2018 [facility] 97.9 fL 7:47 AM CDT [facility] RBC Distrib Width 13.8 12.2 - 03/31/2018 [facility] 16.1 % 7:47 AM CDT [facility] Platelet Count 246 157 - 371 03/31/2018 [facility] x10(9)/L 7:47 AM CDT [facility] Leukocytes 9.3 3.4 - 9.6 03/31/2018 [facility] x10(9)/L 7:47 AM CDT [facility] Neutrophils 7.65 (H) 1.56 - 03/31/2018 [facility] 6.45 7:47 AM CDT [facility] x10(9)/L [facility] Lymphocytes 1.05 0.95 - 03/31/2018 [facility] 3.07 7:47 AM CDT [facility] x10(9)/L [facility] Monocytes 0.60 0.26 - 03/31/2018 [facility] 0.81 7:47 AM CDT [facility] x10(9)/L [facility] Eosinophils 0.01 (L) 0.03 - 03/31/2018 [facility] 0.48 7:47 AM CDT [facility] x10(9)/L [facility] Basophils 0.01 0.01 - 03/31/2018 [facility] 0.08 7:47 AM CDT [facility] x10(9)/L [facility] Specimen Anatomical Collection Method Collection Time Receive d Time (Source) Location / / Volume Laterality Blood (Blood, 03/31/2018 7:29 AM 03/31/20 18 7:43 Venous) CDT AM CDT Gabriela Hernandez P.A.-C. LAB BLOOD ADD-ON Performing Organization Address City/State/ZIP Code Phon e Number [facility] [address] [place] [address] LAB DX Knee Left 2 Views (03/30/2018 12:32 PM CDT) Anatomical Region Laterality Modality Lower Extremity, Knee, Musculoskeletal RST LOS Left Digital Radiography Specimen (Source) Anatomical Collection Method Collection Time Re ceived Time Location / / Volume Laterality 03/30/2018 3:58 PM CDT Impressions 03/30/2018 3:59 PM CDT IMPRESSION: Interval placement of left t otal knee prosthesis. Narrative 03/30/2018 3:59 PM CDT EXAM: DX KNEE LEFT 2 VIEWS COMPARISON: 02/24/2018 FINDINGS: There is interval placement of the total right knee prosthesis including patella prosthesis. Skin stapl es and air in the soft tissues from recent surgery are noted. Procedure Note Merna Pak M.D. - 03/30/2018Fo rmatting of this note might be different from the original. EXAM: DX KNEE LEFT 2 VIEWS COMPARISON: 02/24/2018 FINDINGS: There is interval placement of the total right knee prosthesis including patella prosthesis. Skin stapl es and air in the soft tissues from recent surgery are noted. IMPRESSION: Interval placement of left t otal knee prosthesis. Gabriela Hernandez P.A.-C. [facility] PROC EDURES documented in this encounter Visit Diagnoses Diagnosis Primary Osteoarthritis Knee Left - Prima ry Primary Osteoarthritis Knee Right Aftercare Total Knee Arthroplasty Primary Osteoarthritis Knee Left Hypertension Benign Renovascular Primary Osteoarthritis Knee Right documented in this encounter Admitting Diagnoses Diagnosis Primary Osteoarthritis Knee Left documented in this encounter Administered Medications Inactive Administered Medications - up to 3 most recent administrations Medication Order MAR Action Action Date Dose Rate Site acetaminophen tablet 1,000 mg Given 04/01/2018 11:59 AM CDT 1,00 0 mg (TYLENOL) 1,000 mg, oral, Every 6 hours scheduled, First dose on Thu03/30/18 at 1345 Given 04/01/2018 6:04 AM CDT 1,000 mg Given 04/01/2018 12:06 AM CDT 1,000 mg aspirin chewable tablet 81 mg Given 04/01/2018 8:03 AM CDT 81 mg 81 mg, oral, 2 times daily, First dose on Thu03/31/18 at 0900 Given 03/31/2018 8:22 PM CDT 81 mg Given 03/31/2018 8:10 AM CDT 81 mg ceFAZolin in dextrose (iso-os) IVPB 2 g New Bag 03/30/2018 9:0 8 PM 2 g 200 mL/hr (ANCEF) CDT 2 g, intravenous, at 200 mL/hr, Administer over 30 Minutes, Every 8 hours, First dose on Thu03/30/18 at 1330, For 2 doses, First post-operative dose to be given 4 hours from last pre-operative/intra-operative dose. , Dose: 1 gm for patients weighing less than 80 kg, 2 gm for patients weighing 80 kg or greater. premix, Drug Monitoring Program: Pharmacist to adjust medication order based on comorbities and indication., Indications: Prophylaxis, surgical New Bag 03/30/2018 2:12 PM CDT 2 g 200 mL/hr fentaNYL injection (SUBLIMAZE) Given 03/30/2018 8:12 AM CDT 50 mcg Code/trauma/sedation medication, Starting on Thu03/30/18 at 0812 ketorolac injection 15 mg (TORADOL) Given 03/31/2018 6:14 AM CDT 15 mg 15 mg, intravenous, Every 6 hours scheduled, First dose on Thu03/30/18 at 1345, For 4 doses, Hold if CrCl < 50ml/min Adult IV push rate: Over 15 seconds. Peds IV push rate: Over 1 minute. 60 mg dose only for IM, not recommended for IV., Drug Monitoring Program: Pharmacist to adjust medication order based on comorbities and indication. Given 03/31/2018 12:03 AM CDT 15 mg Given 03/30/2018 6:08 PM CDT 15 mg lisinopril tablet 5 mg (PRINIVIL,ZESTRIL ) Given 04/01/2018 8:03 AM CDT 5 mg 5 mg, oral, Daily, First dose on Thu03/31/18 at 0900, Hold for SBP <120mmHg Given 03/31/2018 8:10 AM CDT 5 mg midazolam (PF) injection (VERSED) Given 03/30/2018 8:12 AM CDT 1 mg Code/trauma/sedation medication, Starting on Thu03/30/18 at 0812 lbzizcdxzoqg-omwr-LO-Ca-minerals 9 mg Given 04/01/2018 8:03 AM C DT 1 tablet iron-400 mcg tablet 1 tablet (THERAPEUTI C-M) 1 tablet, oral, Daily, First dose on Thu03/31/18 at 0900 Given 03/31/2018 8:10 AM CDT 1 tablet NaCl 0.9% infusion New Bag 03/30/2018 2:12 PM CDT 75 mL/hr 75 mL/hr 75 mL/hr, intravenous, Continuous, Starting on Thu03/30/18 at 1330, May discontinue once oral intake and urine output is adequate oxyCODONE IR tablet 10 mg (ROXICODONE) Given 04/01/2018 8:06 AM CDT 10 mg 10 mg, oral, Every 4 hours PRN, severe pain or score 7-10 of 10, Starting on Thu03/30/18 at 1326, Second line therapy. If patient is greater than 7 after 2 hours, call service for new order. Given 04/01/2018 12:06 AM CDT 10 mg oxyCODONE IR tablet 5 mg (ROXICODONE) Given 04/01/2018 12:00 PM CDT 5 mg 5 mg, oral, Every 4 hours PRN, moderate pain or score 4-6 of 10, Starting on Thu03/30/18 at 1326, Second line therapy Given 04/01/2018 4:08 AM CDT 5 mg Given 03/31/2018 8:22 PM CDT [address] tablet 40 mg (PROTONIX) Given 04/01/2018 6:04 AM CDT 40 mg 40 mg, oral, Daily before breakfast, First dose on Thu03/31/18 at 0700, Swallow whole. Do NOT crush, chew, or split tablet. Given 03/31/2018 6:14 AM CDT 40 mg sennosides-docusate sodium 8.6-50 mg per Given 04/01/2018 8:03 A M CDT 1 tablet tablet 1 tablet (SENOKOT-S) 1 tablet, oral, 2 times daily, First dose on Thu03/30/18 at 2100, Do not give if patient has diarrhea. Given 03/31/2018 8:22 PM CDT 1 tablet Given 03/31/2018 8:16 AM CDT 1 tablet documented in this encounter Active and Recently Administered Medications Times are shown in CDT. Scheduled Medication Order 03/30/2018 03/31/2018 04/01/2018 acetaminophen tablet 1,000 mg (TYLENOL) 5589 (Given - Provider: Marnie Yeung RLaN.)1808 (Given - Provider: Gi Schwab R.N.) 0003 (Given - Provider: Beverly ChenNLa)0614 (Given - Provider: Lora Taylor R.N.)1215 (Given - Provider: Beverly CardosoNLa)1808 (Given - Provider: Beverly ValverdeNLa) 0006 (Given - Provider: Mina tee R.N.)0604 (Given - Provider: Mina Cardoza R.N.)1159 (Given - Provider: Belen Elias R.N.) 1,000 mg, oral, Every 6 hours scheduled, First dose on Thu at 1345 aspirin chewable tablet 81 mg 0810 (Give n - Provider: Meenakshi Lucero RLaNLa)202 (Given - Provider: Portia Purvis RLaNLa) 0803 (Given - Provider: Belen Elias R.N.) 81 mg, oral, 2 times daily, First dose on Thu03/31/18 at 0900 ceFAZolin in dextrose (iso-os) IVPB 2 g (ANCEF) (COMPL ETED) 0930 (Given - Provider: Martínez Garcia APRN, PLASTERING SUPERVISOR) 2 g, intravenous, at 200 mL/hr, Administ er over 30 Minutes, Once, Thu03/30/18 at 0800, For 1 dose, Pre-Op, Preoperatively within 1 hour prior to surgical incision premix, Drug Monitoring Program: Pharma cist to adjust medication order based on comorbities and indication., Indications: Prophylaxis, Surgical ceFAZolin in dextrose (iso-os) IVPB 2 g (ANCEF) (COMPL ETED) 1412 (New Bag - Provider: Marnie Yeung RLaNLa)210 (New Bag - Provider: Gi Schwab RSuresh) 2 g, intravenous, at 200 mL/hr, Administ er over 30 Minutes, Every 8 hours, First dose on Thu03/30/18 at 1330, For 2 doses, First post-operative dose to be given 4 hours from last pre-operative/intra-ope rative dose. , Dose: 1 gm for patients w eighing less than 80 kg, 2 gm for patients weighing 80 kg or greater. premix, Drug Monitoring Program: Pharmacist to adjust medication order based on comorbities and indication., Indications: Prophylaxis, surgical EPINEPHrine 0.2 mg, ketorolac 30 mg, rop ivacaine (PF) 300 mg in NaCl 0.9% injection (COMPLETED) 0800 (Due)1039 (Given - Provider: Fausto Hoffman D.O.) periarticular, Once, Thu03/30/18 at 0800 , For 1 dose, Intra-Op, Drug Monitoring Program: Pharmacist to adjust medication order based on comorbities and indication. ketorolac injection 15 mg (TORADOL) (COMPLETED) 1412 ( Given - Provider: Beverly WallNLa)1808 (Given - Provider: Gi Schwab R.N.) 0003 (Given - Provider: Lora Taylor R.N.)0614 (Given - Provider: Sergo Chen.N.) 15 mg, intravenous, Every 6 hours schedu led, First dose on Thu03/30/18 at 1345, For 4 doses, Hold if CrCl < 50ml/min Adult IV push rate: Over 15 seconds. Peds IV push rate: Over 1 minute. 60 mg dose only for IM, not recommended for IV., Dr ug Monitoring Program: Pharmacist to adjust medication order based on comorbities and indication. lisinopril tablet 5 mg (PRINIVIL,ZESTRIL) 0810 (Given - Provider: Meenakshi Lucero RLaNLa) 0803 (Given - Provider: Beverly Stephenson) 5 mg, oral, Daily, First dose on Thu03/31/18 at 0900, Hold for S BP <120mmHg qclcilrsybjr-jaml-DM-Ca-minerals 9 mg ir on-400 mcg tablet 1 tablet (THERAPEUTIC-M) 0810 (Given - Provider: Meenakshi Lucero R.N.) 0803 (Given - Provider: Belen Elias R.N.) 1 tablet, oral, Daily, First dose on Thu03/31/[address] tablet 40 mg (PROTONIX) 0614 (Given - Provider: Lora Taylor R.N.) 0604 (Given - Provider: Mina tee R.NLa) 40 mg, oral, Daily before breakfast, Fir st dose on Thu03/31/18 at 0700, Swallow whole. Do NOT crush, chew, or split tablet. sennosides-docusate sodium 8.6-50 mg per tablet 1 tabl et (SENOKOT-S) 2108 (Given - Provider: Gi Schwab, R.N.) 0816 (Given - Provider: Meenakshi Lucero , R.N.)2021 (Given - Provider: Portia Purvis R.N.) 08 (Given - Provider: Belen Elias R.N.) 1 tablet, oral, 2 times daily, First dos e on Thu03/30/18 at 2100, Do not give if patient has diarrhea. tranexamic acid 1 g in NaCl 0.9% IVPB (COMPLETED) 0938 (New Bag - Provider: Martínez Garcia APRN, MARY JO)1058 (Bolus - Provider: Martínez Garcia APRN, MARY JO) 1 g, intravenous, at 150 mL/hr, Administ er over 20 Minutes, Once, Thu03/30/18 at 0800, For 1 dose, Intra-Op, Administer in OR upon induction Mini-Bag Plus bag, Drug Monitoring Program: Pharmacist to adj ust medication order based on comorbities and indication. Continuous Medication Order 03/30/2018 03/31/2018 04/01/2018 lactated ringers (CANCELED) 0730 (Due)0912 (Canceled E ntry - Provider: Martínez Garcia APRN, AMRY JO)0924 (New Bag - Provider: Martínez Garcia APRN, MARY JO)0943 (Canceled Entry - Provider: Martínez Garcia APRN, MARY JO)1015 (New Bag - Provider: Martínez Garcia APRN, PLASTERING SUPERVISOR) 20 mL/hr, intravenous, at 20 mL/hr, Cont inuous, Starting Thu03/30/18 at 0730, Pre-Op 1136 (Anesthesia Volume Adjustment - Pro vider: Martínez Garcia APRN, MARY JO) NaCl 0.9% infusion (CANCELED) 1412 (New Bag - Provider: Scotty Dyson, R.NLa) 75 mL/hr, intravenous, Continuous, Start ing on Thu03/30/18 at 1330, May discontinue once oral intake and urine output is adequate PRN Medication Order 03/30/2018 03/31/2018 04/01/2018 bisacodyl suppository 10 mg (DULCOLAX) 10 mg, rectal, Daily PRN, constipation, Starting Thu03/30/18 at 1326, Ordered sequence of administration: polyethylene glycol, then bisacodyl until BM achieved. calcium carbonate chewable tablet 400 mg of calcium (TUMS) 400 mg of calcium, oral, Every 2 hour AR N, indigestion, Starting Thu03/30/18 at 1326, Doses listed are in mg of elemental calcium. Take with food. 500 mg calcium carbonate contains 200 mg of elemental calcium. dexamethasone injection 4 mg (DECADRON) 4 mg, intravenous, Once as needed, nause a, vomiting, Starting Thu03/30/18 at 1326, For 1 dose, Give only if NOT given during the pre or intraoperative period. If ondansetron ordered, give dexamethasone with first dose of ondansetron. droperidol injection 0.625 mg (INAPSINE) 0.625 mg, intravenous, Every 6 hours PRN , nausea, vomiting, Starting Thu03/30/18 at 1326, For 48 hours, Total of 3 doses in 24 hour period. RASS must be -2 or higher to administer. Reassess for nausea o r vomiting after at least 10 minutes. If nausea or vomiting persists administer next ordered antiemetic medications (order for antiemetic medication administration ondansetron then droperidol then promethazine)., Indications: Nausea and Vomiting fentaNYL injection (SUBLIMAZE) (COMPLETED) 811 (Given - Provider: Giorgi Betancourt M.D.) Code/trauma/sedation medication, Starting on Thu03/30/18 at 0812 menthol lozenge 1 lozenge 1 lozenge, oral, As needed, sore throat, Starting Thu03/30/18 at 1326 midazolam (PF) injection (VERSED) (COMPLETED) 811 (Gi ghazal - Provider: Giorgi Betancourt M.D.) Code/trauma/sedation medication, Starting on Thu03/30/18 at 0812 morphine injection 1 mg 1 mg, intravenous, Every 2 hour PRN, sev ere pain or score 7-10 of 10, Starting Thu03/30/18 at 1824 naloxone injection 0.2 mg (NARCAN) 0.2 mg, intravenous, As needed, respirat ory depression, Starting Thu03/30/18 at 1326, For respiratory rate less than 8 breaths per minute or RASS score of -3, - 4, -5. Apply oxygen to keep oxygen saturations greater than 90% and notify service. ondansetron (PF) injection 4 mg (ZOFRAN) 4 mg, intravenous, Every 6 hours PRN, na usea, vomiting, Starting Thu03/30/18 at 1326, For 48 hours, Reassess for nausea or vomiting after at least 10 minutes. If nausea or vomiting persists administer n ext ordered antiemetic medications (orde r for antiemetic medication administration ondansetron then droperidol then promethazine). oxyCODONE IR tablet 10 mg (ROXICODONE)(Linked Group 1) 2108 (See Alternative - Provider: Gi Schwab R.N.) 0810 (See Alternative - Provider: Meenakshi Lucero R.N.)1540 (See Alternative - Provider: Portia Purvis R.N.)2021 (See Alternative - Provider: Portia Purvis R.N.) 0006 (Given - Provider: Mina Cardoza R.N.)0408 (See Alternative - Provider: Mina Cardoza R.N.)0759 (See Alternative - Provider: Belen Elias R.N.)0806 (Given - Provider: Belen Elias R.N.) 10 mg, oral, Every 4 hours PRN, severe p ain or score 7-10 of 10, Starting on Thu03/30/18 at 1326, Second line therapy. If patient is greater than 7 after 2 hours, call service for new order. 1200 (See Alternative - Provider: Belen Elias R.N.) oxyCODONE IR tablet 5 mg (ROXICODONE)(Linked Group 1) 2108 (Given - Provider: Gi Schwab R.N.) 0810 (Given - Provider: Meenakshi Lucero R.N.)1540 (Given - Provider: Portia Purvis R.N.)2021 (Given - Provider: Portia Purvis R.N.) 0006 (See Alternative - Provider: Carmelo Cardoza R.N.)0408 (Given - Provider: Mina Cardoza R.N.)0759 (Not Given - Provider: Belen Elias R.N. - Reason: Other - Comment: 5 mg, removed twice from pyxis. 10mg given total.) 5 mg, oral, Every 4 hours PRN, moderate pain or score 4-6 of 10, Starting on Thu03/30/18 at 1326, Second line therapy 08 06 (See Alternative - Provider: Belen Elias R.N.)1200 (Given - Provider: Belen Elias R.N.) polyethylene glycol powder packet 1 packet (MIRALAX) 1 packet, oral, Daily PRN, constipation, Starting e 03/30/18 at 1326, Ordered sequence of administration: polyethylene glycol, then bisacodyl until BM achieved. Avoid mixing with starch-based thickened liquids. povidone-iodine 15 mL in NaCl 0.9 % 500 mL irrigation (CANCELED) 1050 (Given - Provider: Fausto Hoffman D.O.) As needed, Starting e 03/30/18 at 1050, Intra-Op promethazine injection 6.25 mg (PHENERGAN) 6.25 mg, intravenous, Every 6 hours PRN, nausea, vomiting, Starting e 03/30/18 at 1326, For 48 hours, RASS must be -2 or higher to administer. Reassess for nausea/vomiting after at least 10 minutes. If nausea or vomiting persists administer next ordered antiemetic medications (order for antiemetic medication administration ondansetron then droperidol then promethazine). vancomycin injection (CANCELED) 1052 (Given - Provider : Fausto Hoffman D.O. - Comment: PLACED IN WOUND.) As needed, Starting e 03/30/18 at 1052, Intra-Op Linked Groups Order Group 1: oxyCODONE IR tablet 5 mg (ROXICODONE)Jump to med 5 mg, oral, Every 4 hours PRN, moderate pain or score 4-6 of 10, Starting on Thu03/30/18 at 1326
Second line therapy
Or oxyCODONE IR tablet 10 mg (ROXICODONE)Jump to med 10 mg, oral, Every 4 hours PRN, severe p ain or score 7-10 of 10, Starting on Thu03/30/18 at 1326
Second line therapy. If patient is greater than 7 after 2 hours, call service for new order.
documented in this encounter Care Teams Revenue Accountant Relationship Specialty Start Date End Date Chastity Davidson M.D. PCP - General 03/19/17 01/11/20 documented as of this encounter
--- OUTSIDE RECORDS SUMMARY | 2022-08-31 10:07 | XMS_ITS | Encounter Summary ---
:1945 Author Organization [facility] Address [address] [place] [address] Care Team Providers Name Role Phone Chastity Davidson M.D. Primary Care Provider Unavailable Encounter Details Date Type Department Care Team Description 05/10/2018 Hospital Encounter Department of [facility], [place] [facility], in [address] [place] [phone] [place], [place] [phone] (Work) [phone] Social History Tobacco Use Types Packs/Day Years Used Date Smoking Tobacco: Former Cigarettes 0.3 35 Smokeless Tobacco: Never Comments: quit about 10 yrs ago Alcohol Use Standard Drinks/Week Comments Yes 3 (1 standard drink = 0.6 oz pure 2x or so per month 1 drink each alcohol) time Sex Assigned at Date Recorded 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 aspirin 81 mg chewable Chew 1 tablet (81 mg 90 tablet 0 05/17/2018 tablet total) 2 (two) times a day. aspirin [address] tablet Take 1 tablet (81 mg 90 tablet 11 12/07/2018 total) by mouth 2 (two) times a day. lisinopril Take 1 tablet (5 mg 90 tablet 3 10/12/201711/16 (for_PRINIVIL,ZESTRIL) 5 total) by mouth mg tablet daily. oxyCODONE (ROXICODONE) 5 Take 1 tablet (5 [...] Date/Time Associated Diagnosis Comme nts DX KNEE LEFT RAD - Routine 05/10/2018 10:19 Primary Results fo r STANDING 1-2 (most inpatients AM CDT Osteoarthritis Knee this procedure VIEWS and all Left are in the outpatients) results section. documented in this encounter Results DX Knee Left Standing 1-2 Views (05/10/2018 10:19 AM CDT) Anatomical Region Laterality Modality Lower Extremity, Knee, Musculoskeletal RST LOS Left Digital Radiography Specimen (Source) Anatomical Collection Method Collection Time Re ceived Time Location / / Volume Laterality 05/10/2018 11:04 AM CDT Impressions 05/10/2018 11:06 AM CDT IMPRESSION: Stable left total knee arthr oplasty. Narrative 05/10/2018 11:06 AM CDT EXAM: DX KNEE LEFT STANDING 1-2 VIEWS COMPARISON: 03/30/2018. FINDINGS: There is a small left knee rell nt effusion. There is no change in appearance or alignment of left total kn ee arthroplasty which shows no evidence of loosening or dislocation. Incidentall y visualized right knee on the AP view demonstrates advanced degenerative osteo arthritis primarily involving the medial compartment. 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 Procedure Note Pierre Marquez Jr., M.D. - 2017 EXAM: DX KNEE LEFT STANDING 1-2 VIEWS COMPARISON: 03/30/2018. FINDINGS: There is a small left knee rell nt effusion. There is no change in appearance or alignment of left total kn ee arthroplasty which shows no evidence of loosening or dislocation. Incidentall y visualized right knee on the AP view demonstrates advanced degenerative osteo arthritis primarily involving the medial compartment. 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 IMPRESSION: Stable left total knee arthr oplasty. [facility] ARIANNE SANDERSON documented in this encounter Visit Diagnoses Diagnosis Primary Osteoarthritis Knee Left documented in this encounter Care Teams Bioinformatics Analyst Relationship Specialty Start Date End Date Chastity Davidson M.D. PCP - General 03/19/17 01/11/20 documented as of this encounter
--- OUTSIDE RECORDS SUMMARY | 2022-08-31 10:07 | XMS_ITS | Encounter Summary ---
:1945 Author Organization [facility] Address [address] [place] [address] Care Team Providers Name Role Phone Chastity Davidson M.D. Primary Care Provider Unavailable Encounter Details Date Type Department Care Team Description 05/27/2018 Orders Only Department of Orthopedic Patricia Torres R.N. 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 PCP - General 03/19/17 01/11/20 documented as of this encounter
--- OUTSIDE RECORDS SUMMARY | 2022-08-31 10:07 | XMS_ITS | Encounter Summary ---
:[address] [facility] Address [address] [place] [address] Care Team Providers Name Role Phone Chastity Davidson M.D. Primary Care Provider Unavailable Reason for Visit Physical Therapy (Routine) - Canceled Specialty Diagnoses / Procedures Referred By Contact Refer red To Contact Diagnoses Aftercare Total Knee Arthroplasty Gabriela Hernandez [facility] Procedures PT Ongoing treatment P.A.-C. [address] [place] [address] Referral ID Status Reason Start Date Expiration Date Visits V isits Requested Authorized [id number] Canceled 04/02/2018 05/20/2018 99 11 Encounter Details Date Type Department Care Team Description 04/16/2018 Clinical Support Department of Physical Irena Hernandez ret, P.A.-C. Aftercare Total Knee Medicine and [place]wyn Nielson, PBruno, D.P.T. 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 - 04/16/2018 1:30 PM CDT Physical Therapy Outpatient Treatment Note SUBJECTIVE Patient Name: Mary Jane Rockwell Referring Provider: Flower Villalba Rehab Diagnosis: 1. Aftercare Total Knee Arthroplasty Reason for Referral: Patient is status post left TKA on 03/30/2018. Onset Date: 03/30/18 Payor: [facility] / Plan: [facility] FOR [employer] HMO / Product Type: HMO / Total Visit Count: 4 Visit Count since last G-Codes: 3 03/30/2018 for total knee status post 2 weeks Pt comments: patient reports that she tolerated last therapy session well and that she has been compliant with home exercise program. She has most difficulty with knee extension exercises. OBJECTIVE Pain: Pain Assessment Pain Assessment: 0-10 Numeric Pain Intensity Scale Pain Score: 2 (Left knee) Hello Ortho Exam .rhb TREATMENT Treatment today consisted of: Manual Therapy: Other Manual Therapy: PROM and therapy 3?? from full knee extension 115?? flexion current range of motion at end of therapy 3?? from full knee extension to 115?? flexion Therapeutic Exercise: Exercise - Position Seated Exercise 1: Warmup on NuStep and upright bike to improved PROM 5 min. Standing Exercise 1: Step-up 6 in step x 10, side step-up 4 in step x 10, step- down 4 in step x 10. Toe taps 8 in x10: RLE only, LLE only, alternating. Sit to stand without upper extremity support x 10: RLE kept forward, elevated seat height light taps, regular chair height light taps Assessment Clinical Impression: Patient tolerated therapy session well today she continues to have difficulty with step-downs however this improved with patient now tolerating 4 in step Downs. Patient was able to perform full revolution on upright bike and demonstrated mild hip hiking. Sit to stands in order to improve knee strengthfor LLE. Overall patient is doing very well with minor cuing for all exercises. PROM has not improved since last therapy however patient's function has improved. Clinical Decision Making: Low: no complicating factors, [...] Time Spent with Patient Manual Therapy (min): 5 min Therapeutic Exercise (min): 25 min Time Calculation Total Timed Units (min): 30 min Total Treatment Time (min): 30 min Functional G-code Worksheet documented in this encounter Plan of Treatment Not on filedocumented as of this encounter Visit Diagnoses Diagnosis Aftercare Total Knee Arthroplasty documented in this encounter Care Teams Filer And Sander Relationship Specialty Start Date End Date Chastity Davidson M.D. PCP - General 03/19/17 01/11/20 documented as of this encounter
--- OUTSIDE RECORDS SUMMARY | 2022-08-31 10:07 | XMS_ITS | Encounter Summary ---
:[address] [facility] Address [address] [place] [address] Care Team Providers Name Role Phone Chastity Davidson M.D. Primary Care Provider Unavailable Reason for Visit Physical Therapy (Routine) - Canceled Specialty Diagnoses / Procedures Referred By Contact Refer red To Contact Diagnoses Aftercare Total Knee Arthroplasty Gabriela Hernandez [facility] Procedures PT Ongoing treatment P.A.-C. [address] [place] [phone] Referral ID Status Reason Start Date Expiration Date Visits V isits Requested Authorized [id number] Canceled 04/02/2018 05/20/2018 99 11 Encounter Details Date Type Department Care Team Description 05/07/2018 Clinical Support Department of Physical Irena Hernandez ret, P.A.-C. Aftercare Total Knee Medicine and [place]wyn Nielson, PBruno, D.P.T. 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 - 05/07/2018 11:30 AM CDT Physical Therapy Outpatient Treatment Note SUBJECTIVE Patient Name: Mary Jane Rockwell Referring Provider: Flower Villalba Rehab Diagnosis: 1. Aftercare Total Knee Arthroplasty Reason for Referral: Patient is status post left TKA on 03/30/2018. Onset Date: 03/30/18 Payor: [facility] / Plan: [facility] FOR [employer] HMO / Product Type: HMO / Total Visit Count: 10 Visit Count since last G-Codes: 9 03/30/2018 for total knee status post 2 [...] x5, concentric and eccentric 12.5 lb x5. Neuromuscular Re-education: Neuromuscular Re-Education: Single leg stance level ground intermittent upper extremity support 10 trials < 10 sec. On foam tandem stance right leg leading left leg leading x3 15 sec. Wobble board LLE x 10: Forward/backwards/side to side/clockwise rotation Assessment Clinical Impression: Today's therapy focus was [...] improved ankle righting technique for improved balance. Patient will continue to benefit from outpatient physical therapy in order to work on balance, strength, and performing functional tasks. Clinical Decision Making: Low: no complicating factors, [...] Time Spent with Patient Neuromuscular Re-Education (min): 20 min Therapeutic Exercise (min): 10 min Time [...] Arthroplasty documented in this encounter Care Teams Film Editor Supervisor Relationship Specialty Start Date End Date Chastity Davidson M.D. PCP - General 03/19/17 01/11/20 documented as of this encounter
--- OUTSIDE RECORDS SUMMARY | 2022-08-31 10:07 | XMS_ITS | Encounter Summary ---
:1945 Author Organization [facility] Address [address] [place] [address] Care Team Providers Name Role Phone Chastity Davidson M.D. Primary Care Provider Unavailable Reason for Visit Physical Therapy (Routine) - Canceled Specialty Diagnoses / Procedures Referred By Contact Refer red To Contact Diagnoses Aftercare Total Knee Arthroplasty Gabriela Hernandez [facility] Procedures PT Ongoing treatment P.A.-C. [address] [place] [address] Referral ID Status Reason Start Date Expiration Date Visits V isits Requested Authorized [id number] Canceled 04/02/2018 05/20/2018 99 11 Encounter Details Date Type Department Care Team Description 04/20/2018 Clinical Support Department of Physical Irena Hernandez ret, P.A.-C. Aftercare Total Knee Medicine and Selwyn Nielson, PBruno, D.P.T. 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 - 04/20/2018 8:00 AM CDT Physical Therapy Outpatient Treatment Note SUBJECTIVE Patient Name: Mary Jane Rockwell Referring Provider: Flower Villalba Rehab Diagnosis: 1. Aftercare Total Knee Arthroplasty Reason for Referral: Patient is status post left TKA on 03/30/2018. Onset Date: 03/30/18 Payor: [facility] / Plan: [facility] FOR [employer] H[employer] / Product Type: HMO / Total Visit Count: 5 Visit Count since last G-Codes: 4 03/30/2018 for total knee status post 2 weeks Pt comments: patient reports that she tolerated last therapy session well and that she has been compliant with home exercise program. She has most difficulty with knee extension exercises. OBJECTIVE Pain: Pain Assessment Pain Assessment: 0-10 Numeric Pain Intensity Scale Pain Score: 2 (Left knee) Hello Ortho Exam TREATMENT Treatment today consisted of: Manual Therapy: Other Manual Therapy: PROM and therapy 0?? from full knee extension 120?? flexion Therapeutic Exercise: Exercise - Position Seated Exercise 1: Warmup on NuStep and upright bike to improved PROM 7 min. Hamstring curl 30 lb x 10. Hamstring curl machine holds 2 min x3. Prone Exercises: More Prone Exercises Prone Exercise 1: Prone knee extension prolonged stretch x5 mins. Therapist and patient lead knee flexion with contract relax knee flexion x20 Assessment Clinical Impression: Patient tolerated therapy session well today decision to focus on manual therapy patient improved from last therapy session from 3?? from full knee extension to 115?? to today's measurements 0-120 degrees. Patient reported that last therapy session she had increased knee pain lasting 3 days. Patient also reports that swelling continues to do well only having swelling at end of day Clinical Decision Making: Low: no complicating factors, [...] Time Spent with Patient Manual Therapy (min): 20 min Therapeutic Exercise (min): 10 min Time Calculation Total Timed Units (min): 30 min Total Treatment Time (min): 30 min Functional G-code Worksheet documented in this encounter Plan of Treatment Not on filedocumented as of this encounter Visit Diagnoses Diagnosis Aftercare Total Knee Arthroplasty documented in this encounter Care Teams Sports Official Relationship Specialty Start Date End Date Chastity Davidson M.D. PCP - General 03/19/17 01/11/20 documented as of this encounter
--- OUTSIDE RECORDS SUMMARY | 2022-08-31 10:07 | XMS_ITS | Encounter Summary ---
:1945 Author Organization [facility] Address [address] [place] [address] Care Team Providers Name Role Phone Chastity Davidson M.D. Primary Care Provider Unavailable Reason for Visit Physical Therapy (Routine) - Canceled Specialty Diagnoses / Procedures Referred By Contact Refer red To Contact Diagnoses Aftercare Total Knee Arthroplasty Gabriela Hernandez [facility] Procedures PT Ongoing treatment P.A.-C. [address] [place] [phone] Referral ID Status Reason Start Date Expiration Date Visits V isits Requested Authorized [id number] Canceled 04/02/2018 05/20/2018 99 11 Encounter Details Date Type Department Care Team Description 2018 Clinical Support Department of Physical Irena Hernandez ret, P.A.-C. Aftercare Total Knee Medicine and Selwyn Nielson, PBruno, D.P.T. 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 - 2018 9:30 AM CDT Physical Therapy Outpatient Treatment Note SUBJECTIVE Patient Name: Mary Jane Rockwell Referring Provider: Flower Villalba Rehab Diagnosis: 1. Aftercare Total Knee Arthroplasty Reason for Referral: Patient is status post left TKA on 03/30/2018. Onset Date: 03/30/18 Payor: [facility] / Plan: [facility] HMO / Product Type: HMO / Total Visit Count: 8 Visit Count since last G-Codes: 7 03/30/2018 for total knee status post 2 weeks Pt comments: patient reports that she tolerated last therapy session well and that she has been compliant with home exercise program. She has most difficulty with knee extension exercises. OBJECTIVE Pain: Pain Assessment Pain Assessment: 0-10 Numeric Pain Intensity Scale Pain Score: 1 (Left knee) Hello Ortho Exam TREATMENT Treatment today consisted of: Manual Therapy: Therapeutic Exercise: Exercise - Position Seated Exercise [...] Arthroplasty documented in this encounter Care Teams Architecture Department Chair Relationship Specialty Start Date End Date Chastity Davidson M.D. PCP - General 03/19/17 01/11/20 documented as of this encounter
--- OUTSIDE RECORDS SUMMARY | 2022-08-31 10:07 | XMS_ITS | Encounter Summary ---
:1945 Author Organization [facility] Address [address] [place] [address] Care Team Providers Name Role Phone Chastity Davidson M.D. Primary Care Provider Unavailable Reason for Visit Reason Comments Pre-op Exam Rt knee Dr Mary Mejía Appointment Request (Routine) - Closed Specialty Diagnoses / Procedures Referred By Contact Refer red To Contact Orthopedic Surgery Referral ID Status Reason Start Date Expiration Date Visits Requ ested Visits Authorized [id number] Closed 05/10/2018 05/10/2019 1 1 Encounter Details Date Type Department Care Team Description 05/17/2018 Office Visit Department of Family Urmila Davidson ative Exam (Primary Dx); Medicine in [place] Hypertension B [facility]ign [facility] [place] [address] [place] [address] Social History Tobacco Use Types Packs/Day Years Used Date Smoking Tobacco: Former Cigarettes 0.3 35 Smokeless Tobacco: Never Comments: quit about 10 yrs ago Alcohol Use Standard Drinks/Week Comments Yes 3 (1 standard drink = 0.6 oz pure 2x or so per month 1 drink each alcohol) time Sex Assigned at Date Recorded 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 - 05/17/2018 9:45 AM CDT SUBJECTIVE CHIEF COMPLAINT/REASON FOR VISIT Chief Complaint Patient presents with ??? Pre-op Exam Rt knee Dr Mary Mejía HISTORY OF PRESENT ILLNESS Mary Jane Rockwell is a 73 y.o. female who presents at the request of Dr. Hoffman for preoperative evaluation for surgery on right total knee arthroplasty that will take place at [facility] on 05/24/2018. REVIEW OF SYSTEMS See pertinent [...] TOTAL KNEE; Surgeon: Fausto Hoffman D.O.; Location: [facility] ??? COLONOSCOPY N/A 02/01/2018 Procedure: COLONOSCOPY; Surgeon: Jazmyne Weaver M.D.; Location: [facility] ??? CYST REMOVAL ??? ESOPHAGOGASTRODUODENOSCOPY N/A 02/01/2018 Procedure: ESOPHAGOGASTRODUODENOSCOPY; Surgeon: Jazmyne Weaver M.D.; Location: [facility] ??? TONSILLECTOMY AND ADENOIDECTOMY [...] comments) Made my eyes worse ??? Neosporin (Jyp-Wco-Xnnyf) [Balklfib-Xcgjprkewx-Lvhobazko] Other (see comments) ??? Tobramycin Other (see [...] Without redness, swelling, but trace edema. Skin: [place], warm, dry and intact with no rashes [...] Negative pH 6.0 5.0 - 8.0 Specific [place] 1.020 1.001 - 1.035 Urobilinogen 0.2 0.2 [...] Name Priority Date/Time Associated Diagnosis Comme nts PROTHROMBIN TIME Routine 05/17/2018 10:28 Preoperative Exam Re sults for this (PT), P AM CDT procedure are i n the results section. CBC WITH Routine 05/17/2018 10:28 Preoperative Exam Result s for this DIFFERENTIAL, B AM CDT procedure ar e in the results section. BASIC METABOLIC Routine 05/17/2018 10:28 Hypertension Benign R esults for this PANEL, S/P AM CDT Renovascular procedure are i n the results section. documented in this encounter Results (ABNORMAL) Urinalysis with Microscopic if Indicated (05/17/2018 10:42 AM CDT) P athologist Signature Source Midstream 05/17/2018 [facility] 10:48 AM [facility] Clarity Clear Clear 05/17/2018 [facility] 10:48 AM [facility] Color Yellow 05/17/2018 [facility] 10:48 AM [facility] Comment: ----REFERENCE VALUE---- Colorless Yellow [place] Blood Trace (A) Negative 05/17/2018 10:48 AM [facility] Nitrite Negative Negative 05/17/2018 10:48 AM [facility] Leukocyte Esterase Negative Negative 05/17/2018 10:48 AM [facility] Protein 30 (A) mg/dL 05/17/2018 10:48 AM [facility] Comment: ----REFERENCE VALUE---- Negative Trace Glucose Negative Negative mg/dL 05/17/2018 10:48 AM [facility] Ketones, QI(U) Trace (A) Negative mg/dL 05/17/2018 10:48 AM [facility] Bilirubin Small (A) Negative 05/17/2018 10:48 AM [facility] pH 6.0 5.0 - 8.0 05/17/2018 10:48 AM [facility] Specific [place] 1.020 1.001 - 1.035 05/17/2018 10:48 AM [facility] Urobilinogen 0.2 0.2 - 1.0 mg/dL 05/17/2018 10:48 AM [facility] Specimen Anatomical Collection Method Collection Time Receive d Time (Source) Location / / Volume Laterality Urine (Urine, 05/17/2018 10:42 05/17/2018 Clean Catch) AM CDT 10:42 AM CDT Chastity Davidson M.D. LAB URINE ORDERABLES Performing Organization Address City/State/ZIP Code Phon e Number [facility] [address] [place], [place] [address] [place] LAB Bacterial Culture, Aerobic + Susc, Urine (05/17/2018 10:42 AM CDT) Analysis Performed At Patho logist Time Signature Bacterial Mixed 05/18/2018 [facility] Culture, byron. 10:49 AM CDT [facility] Aerobic, [facility] Specimen Anatomical Collection Method Collection Time Receive d Time (Source) Location / / Volume Laterality Urine (Urine, 05/17/2018 10:42 05/17/2018 1:56 Midstream) AM CDT PM CDT Comment: Specimen Source Site: Urine Chastity Davidson M.D. LAB MICROBIOLOGY - GENERAL O RDERABLES Performing Organization Address City/[facility]/ZIP Code Phon e Number [facility] [address] [place] [address] LAB PT (Prothrombin Time) with INR (05/17/2018 10:28 AM CDT) P athologist Signature Prothrombin 9.1 8.8 - 11.9 05/17/2018 [facility] Time, P sec 12:34 PM CDT [facility] [place] [facility] INR 0.9 0.9 - 1.2 05/17/2018 [facility] 12:34 PM CDT [facility] [place] [facility] Comment: Standard intensity warfarin therapeutic range: 2.0 to 3.0 High intensity warfarin therapeutic rang e: 2.5 to 3.5 Specimen Anatomical Collection Method Collection Time Receive d Time (Source) Location / / Volume Laterality Blood (Blood, 05/17/2018 10:28 05/17/2018 Venous) AM CDT 12:20 PM CDT Chastity Davidson M.D. LAB BLOOD ADD-ON Performing Organization Address City/State/ZIP Code Phon e Number [facility]- [address] [place] [phone] [place] [facility] BMP (Basic Metabolic Panel) (05/17/2018 10:28 AM CDT) P athologist Signature Potassium, S 4.6 3.6 - 5.2 05/17/2018 [facility] mmol/L 12:46 PM CDT [facility] [place] [facility] Sodium, S 140 135 - 145 05/17/2018 [facility] mmol/L 12:46 PM CDT [facility] [place] [facility] Chloride, S 102 98 - 107 05/17/2018 [facility] mmol/L 12:46 PM [facility] Bicarbonate, S 27 22 - 29 05/17/2018 [facility] mmol/L 12:46 PM [facility] Anion Gap 11 7 - 15 05/17/2018 [facility] 12:46 PM [facility] BUN (Blood Urea 17 6 - 21 05/17/2018 [facility] Nitrogen), S mg/dL 12:46 PM [facility] Creatinine 0.78 0.59 - 05/17/2018 [facility] 1.04 mg/dL 12:46 PM [facility] eGFR-Non 76 >=60 05/17/2018 [facility] Black/ mL/min/BSA 12:46 PM [facility] Comment: ----ADDITIONAL INFORMATION---- Estimated GFR calculated using the 2009 CKD_EPI creatinine equation. eGFR-Black/ 87 >=60 mL/min/BSA 2017 12:46 PM [facility] [place] [facility] Comment: ----ADDITIONAL INFORMATION---- Estimated GFR calculated using the 2009 CKD_EPI creatinine equation. Calcium, Total, S 9.8 8.8 - 10.2 mg/dL 05/17/2018 1 2:46 PM [facility] Glucose, S 90 70 - 140 mg/dL 05/17/2018 12:46 PM [facility] Specimen Anatomical Collection Method Collection Time Receive d Time (Source) Location / / Volume Laterality Blood (Blood, 05/17/2018 10:28 05/17/2018 Venous) AM CDT 12:21 PM CDT Chastity Davidson M.D. LAB BLOOD ADD-ON Performing Organization Address City/State/ZIP Code Phon e Number [facility] [address] [facility], [place] [phone] [facility] (ABNORMAL) CBC with Differential, Blood (05/17/2018 10:28 AM CDT) [facility] Method Time Signature Hemoglobin 11.8 11.6 - 05/17/2018 [facility] 15.0 g/dL 12:43 PM [facility] [place] [facility] Hematocrit 37.3 35.5 - 05/17/2018 [facility] 44.9 % 12:43 PM CDT [facility] [place] [facility] Erythrocytes 3.78 (L) 3.92 - 05/17/2018 [facility] 5.13 12:43 PM CDT HEALTH x10(12)/L SYSTEM- [place] [facility] MCV 98.7 (H) 78.2 - 05/17/2018 [facility] 97.9 fL 12:43 PM CDT [facility] [place] [facility] RBC Distrib Width 14.9 12.2 - 05/17/2018 [facility] 16.1 % 12:43 PM CDT [facility] [place] [facility] Platelet Count 349 157 - 371 05/17/2018 [facility] x10(9)/L 12:43 PM CDT [facility] [place] [facility] Leukocytes 5.4 3.4 - 9.6 05/17/2018 [facility] x10(9)/L 12:43 PM CDT [facility] [place] [facility] Neutrophils 3.36 1.56 - 05/17/2018 [facility] 6.45 12:43 PM CDT [facility]ALTH x10(9)/L [facility] [place] [facility] Lymphocytes 1.31 0.95 - 05/17/2018 [facility] 3.07 12:43 PM CDT [facility]ALTH x10(9)/L SYSTEM- [place] [facility] Monocytes 0.50 0.26 - 05/17/2018 [facility] 0.81 12:43 PM CDT [facility] x10(9)/L [facility]- [place] [facility] Eosinophils 0.20 0.03 - 05/17/2018 [facility] 0.48 12:43 PM CDT [facility] x10(9)/L [facility] [place] [facility] Basophils 0.02 0.01 - 05/17/2018 [facility] 0.08 12:43 PM CDT [facility] x10(9)/L [facility] [place] [facility] Specimen Anatomical Collection Method Collection Time Receive d Time (Source) Location / / Volume Laterality Blood (Blood, 05/17/2018 10:28 05/17/2018 Venous) AM CDT 12:21 PM CDT Chastity Davidson M.D. LAB BLOOD ADD-ON Performing Organization Address City/State/ZIP Code Phon e Number [facility]- [address] [facility], [place] [phone] [place] [facility] documented in this encounter Visit Diagnoses Diagnosis Preoperative Exam - Primary Hypertension Benign Renovascular documented in this encounter Care Teams Project Management Engineer Relationship Specialty Start Date End Date Chastity Davidson M.D. PCP - General 03/19/17 01/11/20 documented as of this encounter
--- OUTSIDE RECORDS SUMMARY | 2022-08-31 10:07 | XMS_ITS | Encounter Summary ---
:1945 Author Organization [facility] Address [address] [place] [address] Care Team Providers Name Role Phone Chastity Davidson M.D. Primary Care Provider Unavailable Reason for Visit Physical Therapy (Routine) - Canceled Specialty Diagnoses / Procedures Referred By Contact Refer red To Contact Diagnoses Aftercare Total Knee Arthroplasty Gabriela Hernandez [facility] Procedures PT Ongoing treatment P.A.-C. [address] [place] [address] Referral ID Status Reason Start Date Expiration Date Visits V isits Requested Authorized [id number] Canceled 04/02/2018 05/20/2018 99 11 Encounter Details Date Type Department Care Team Description 04/13/2018 Clinical Support Department of Physical Irena Hernandez ret, P.A.-C. Aftercare Total Knee Medicine and Selwyn Nielson, PBruno, D.P.T. 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 - 04/13/2018 8:30 AM CDT Physical Therapy Outpatient Treatment Note SUBJECTIVE Patient Name: Mary Jane Rockwell Referring Provider: Flower Villalba Rehab Diagnosis: 1. Aftercare Total Knee Arthroplasty Reason for Referral: Patient is status post left TKA on 03/30/2018. Onset Date: 03/30/18 Payor: [facility] / Plan: [facility] FOR [employer] HMO / Product Type: HMO / Total Visit Count: 3 Visit Count since last G-Codes: 2 03/30/2018 for total knee Pt comments: patient reports that she tolerated last therapy session well and that follow up for staple removal appointment also went very well. Patient reports that she does notice now decreased swelling since using stocking along with Vinny wrapping. OBJECTIVE Pain: Pain Assessment Pain Assessment: 0-10 Numeric Pain Intensity Scale Pain Score: 2 (LLE ) Ortho Exam TREATMENT Treatment today consisted of: Manual Therapy: current range of motion at end of therapy 3?? from full knee extension to 115?? flexion Therapeutic Exercise: Exercise - Position Seated Exercise 1: Warmup on NuStep and upright bike to improved PROM 5 min. Hamstring curl 30 lb x 10. Hamstring curl machine holds 2 min x3. Standing Exercise 1: Step-up 6 in step x 10, side step-up 2 in step x 10, step- down 4 in step x 10. Toe taps 8 in x10: RLE only, LLE only, alternating Sidestepping red Thera-Band 40 ft x2 Assessment Clinical Impression: Patient tolerated therapy session well today she continues to have difficulty with step-downs however this improved with patient now tolerating 4 in step Downs. Patient was able to perform full revolution on upright bike and demonstrated mild hip hiking. Decision to work on toe taps today secondary to patient having difficulty lifting leg up patient tends to circumduct at the hip when performing stair. After isolating toe taps patient was able to perform without circumducting the hip. Overall patient is doing very well with minor cuing for all exercises. Clinical Decision Making: Low: no complicating factors, [...] Arthroplasty documented in this encounter Care Teams Stock Selector Relationship Specialty Start Date End Date Chastity Davidson M.D. PCP - General 03/19/17 01/11/20 documented as of this encounter
--- OUTSIDE RECORDS SUMMARY | 2022-08-31 10:07 | XMS_ITS | Encounter Summary ---
:1945 Author Organization [facility] Address [address] [place] [address] Care Team Providers Name Role Phone Chastity Davidson M.D. Primary Care Provider Unavailable Reason for Visit Reason Comments Post-op Appointment Request (Routine) - Closed Specialty Diagnoses / Procedures Referred By Contact Refer red To Contact Orthopedic Surgery Referral ID Status Reason Start Date Expiration Date Visits Requ ested Visits Authorized [id number] Closed 03/03/2018 03/03/2019 1 1 Encounter Details Date Type Department Care Team Description 04/12/2018 Office Visit Department of Gabriela Hernandez Total Knee Orthopedic Surgery in A, P.A.-C. 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 - 04/12/2018 11:30 AM CDT REASON FOR CONSULT Postoperative followup left knee HISTORY OF PRESENT ILLNESS Mary Jane Rockwell is a 72 y.o. female who underwent a left total knee arthroplasty on 03/30/[address] Hoffman. Patient states they are doing well postoperatively. Upon discharge, patient was able to discharge home without issues. They have been ambulating with the use of a walker, however patient stat es that she has begin transitioning to a cane.. Pain is controlled with the use of narcotic pain medications, for which she states she has begin to wean away from these. They are not currently experiencing numbness, tingling, weakness to the effected limb. Patient has not had any issues with incision drainage or healing to this point. No other concerns today. SURGICAL HISTORY Past Surgical History: Procedure Laterality Date ??? ARTHROPLASTY REPLACEMENT TOTAL KNEE Left 03/30/2018 Procedure: ARTHROPLASTY REPLACEMENT TOTAL KNEE; Surgeon: Fausto Hoffman D.O.; Location: [facility] ??? COLONOSCOPY N/A 02/01/2018 Procedure: COLONOSCOPY; Surgeon: Jazmyne Weaver M.D.; Location: [facility] ??? CYST REMOVAL ??? ESOPHAGOGASTRODUODENOSCOPY N/A 02/01/2018 Procedure: ESOPHAGOGASTRODUODENOSCOPY; Surgeon: Jazmyne Weaver M.D.; Location: [facility] ??? TONSILLECTOMY AND ADENOIDECTOMY N/A 1950 Tonsillectomy and adenoidectomy HOME MEDICATIONS Home Medications ACETAMINOPHEN (FOR_TYLENOL 8 HR) 650 MG ER TABLET Take 1,300 mg by mouth 2 (two) times a day. As needed ASPIRIN 81 MG CHEWABLE TABLET Chew 1 tablet (81 mg total) 2 (two) times a day. CALCIUM CARBONATE/VITAMIN D3 (CALCIUM WITH VITAMIN D ORAL) Take by mouth daily. LISINOPRIL (FOR_PRINIVIL,ZESTRIL) 5 MG TABLET Take 1 tablet (5 mg total) by mouth daily. MULTIVITAMIN CAPSULE Take by mouth daily. OXYCODONE (ROXICODONE) 5 MG IMMEDIATE RELEASE TABLET Take 1 tablet (5 mg total) by mouth every 4 (four) hours as needed for moderate pain or score 4-6 of 10. PANTOPRAZOLE (FOR_PROTONIX) 20 MG EC TABLET Take 1 tablet (20 mg total) by mouth daily. SENNOSIDES-DOCUSATE SODIUM (SENOKOT-S) 8.6-50 MG PER TABLET Take 1 tablet by mouth 2 (two) times a day. SOCIAL HISTORY Tobacco history is History Smoking Status ??? Former Smoker ??? Packs/day: 0.25 ??? Years: 35.00 ??? Types: Cigarettes Smokeless Tobacco ??? Never Used Comment: quit about 10 yrs ago . REVIEW OF SYSTEMS Constitutional: negative for chills, fever, nausea, vomiting. OBJECTIVE VITAL SIGNS BP Temp 36.7 ??C (04/12/18 1116) Pulse Resp SpO2 There is no height or weight on file to calculate BMI. LAB VALUES Lab Results Component Value Date WBC 6.1 04/06/2018 HGB 10.4 (L) 04/06/2018 HCT 32.5 (L) 04/06/2018 MCV 98.5 (H) 04/06/2018 PLT 368 04/06/2018 O PHYSICAL EXAM Orthopedic Physical Examination GENERAL: [...] Attention was drawn to the patients left lower extremity. Patient demonstrates unaffected ability to perform active ankle dorsiflexion, plantar flexion, inversion, eversion, as well asflex and extend all toes. EHL and FHL intact. Knee range of motion demonstrates 110?? of flexion. Lacking a few degrees from full extension. Negative varus and valgus stress. NEUROLOGIC: Intact sensation to light touch through the deep peroneal, superficial peroneal, sural, saphenous, and tibial nerve distributions of the affected leg. DIAGNOSTIC RESULTS No results found. IMPRESSION/ASSESSMENT/PLAN 1. Status post left total knee arthroplasty 2. Date of surgery 03/30/2018 Mary Jane Rockwell is a 72 y.o. female who is doing well and [...] their activities as tolerated. The patient may continue towean away from their walker to a cane as tolerated. She will continue to work with physical therapy for strengthening and range of motion in their left knee. The patient is encourage to continue to iceand elevate the operative extremity as needed. She will followup in 1 month for repeat films and reevaluation. Patient understood and agreed to the above plan. ADMINISTRATIVE/BILLING No Charge, post-operative visit. documented in this encounter Procedure Notes Rita Eng C.M.A. - 04/12/2018 11:30 AM CDTAssociated Order(s): SUTURE REMOVAL Suture removal Date/Time: 04/12/2018 11:28 AM Performed by: RITA ENG Authorized by: GABRIELA HERNANDEZ Pre-procedure details: Sutures were placed at [facility] facility: yes Indicaton: scheduled staple removal Location: Lower extremity Lower extremity location: Knee Knee location: Left knee Procedure details: Wound appearance: Good wound healing, clean and good approximation of wound edges Number of maryana removed: 30 Post-procedure details: Procedure completed successfully: yes Complications: no immediate complications Post-removal: Steri-Strips applied documented in this encounter Plan of Treatment Not on filedocumented as of this encounter Procedures Procedure Name Priority Date/Time Associated Diagnosis Comme nts SUTURE REMOVAL Routine 04/12/2018 11:30 AM Aftercare Total Kne e Results for this CDT Arthroplasty procedure are i n the results section. documented in this encounter Results SUTURE REMOVAL (04/12/2018 11:30 AM CDT) Narrative [facility] - 04/12/2018 11:30 AM CDT Rita Eng, C.M.A. ? 04/12/2018 12:05 PM Suture removal Date/Time: 04/12/2018 11:28 AM Performed by: RITA ENG Authorized by: GABRIELA HERNANDEZ Pre-procedure details: ??Sutures were placed at [facility] facility: yes ?Indicaton: scheduled staple removal ?Location: ??Lower extremity ??Lower extremity location: ??Knee ??Knee location: ??Left knee Procedure details: ??Wound appearance: ??Good wound healin g, clean and good approximation of wound edges ??Number of maryana removed: ??30 Post-procedure details: ??Procedure completed successfully: yes ?Complications: no immediate complicat ions ?Post-removal: ??Steri-Strips applied Gabriela Hernandez P.A.-C. PROCEDURE/MINOR SURGICAL OR DERABLES Performing Organization Address City/State/ZIP Code Phon e Number [facility] NA documented in this encounter Visit Diagnoses Diagnosis Aftercare Total Knee Arthroplasty - Prim magdi documented in this encounter Care Teams Early Childhood Associate Relationship Specialty Start Date End Date Chastity Davidson M.D. PCP - General 03/19/17 01/11/20 documented as of this encounter
--- OUTSIDE RECORDS SUMMARY | 2022-08-31 10:07 | XMS_ITS | Encounter Summary ---
:1945 [facility] Address [address] [place] [address] Care Team Providers Name Role Phone Chastity Davidson M.D. Primary Care Provider Unavailable Reason for Visit Physical Therapy (Routine) - Canceled Specialty Diagnoses / Procedures Referred By Contact Refer red To Contact Diagnoses Aftercare Total Knee Arthroplasty Gabriela Hernandez [facility] Procedures PT Ongoing treatment P.A.-C. [address] [place] [address] Referral ID Status Reason Start Date Expiration Date Visits V isits Requested Authorized [id number] Canceled 04/02/2018 05/20/2018 99 11 Encounter Details Date Type Department Care Team Description 04/23/2018 Clinical Support Department of Physical Irena Hernandez ret, P.A.-C. Aftercare Total Knee Medicine and Selwyn Nielson, PBruno, D.P.T. 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 - 04/23/2018 7:30 AM CDT Physical Therapy Outpatient Treatment Note SUBJECTIVE Patient Name: Mary Jane Rockwell Referring Provider: Flower Villalba Re[facility] Diagnosis: 1. Aftercare Total Knee Arthroplasty Reason for Referral: Patient is status post left TKA on 03/30/2018. Onset Date: 03/30/18 Payor: [facility] / Plan: [employer] H[employer] / Product Type: HMO / Total Visit Count: 6 Visit Count since last G-Codes: 5 03/30/2018 for total knee status post 2 [...] Hamstring curl machine holds 2 min x3. Leg press machine 40 lb LLE x 10 Standing Exercise: More Standing Exercises Prone Exercise 1: Prone knee extension prolonged stretch x5 mins. Therapist and patient lead knee flexion with contract relax knee flexion x20 1 min seated holds 10 in seat height x3 Bilateral calf stretch and soleus stretch 1 min each x3 Hamstring stretch standing touching toes 30 sec x5 Leg on chair sitting back 10 sec holds x 10 Assessment Clinical Impression: Patient tolerated therapy session well today decision to focus on manual therapy patient improved from last therapy session from 3?? from full knee extension to 115?? to today's measurements 0-120 degrees. Patient reports that [place] and would like for knee to be tolerating car ride up which will be 2 hours. Will check in with patient to see how well knee tolerated car ride. Patient also reports that swelling continues to [...] Arthroplasty documented in this encounter Care Teams Engraver Wood Relationship Specialty Start Date End Date Chastity Davidson M.D. PCP - General 03/19/17 01/11/20 documented as of this encounter
--- OUTSIDE RECORDS SUMMARY | 2022-08-31 10:07 | XMS_ITS | Encounter Summary ---
:1945 Author Organization [facility] Address [address] [place] [address] Care Team Providers Name Role Phone Chastity Davidson M.D. Primary Care Provider Unavailable Encounter Details Date Type Department Care Team Description 05/11/2018 Orders Only Department of Orthopedic Patricia Torres R.N. 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 PCP - General 03/19/17 01/11/20 documented as of this encounter
--- OUTSIDE RECORDS SUMMARY | 2022-08-31 10:08 | XMS_ITS | Encounter Summary ---
:1945 Author Organization [facility] Address [address] [place] [address] Care Team Providers Name Role Phone Chastity Davidson M.D. Primary Care Provider Unavailable Encounter Details Date Type Department Care Team Description 03/22/2018 Hospital Encounter Department of Fausto Hoffman Primary Osteoarthritis Laboratory Sulema Kirby Knee Left Medicine, Specialty [address] [facility] [address], in [facility] [phone] [place] [address] [place], [place] (Work) [phone] Social History Tobacco Use Types Packs/Day Years Used Date Smoking Tobacco: Former Cigarettes 0.3 35 Smokeless Tobacco: Never Alcohol Use Standard Drinks/Week Comments Yes 3 (1 standard drink = 0.6 oz pure alcoho l) none since Oct Sex Assigned at Date Recorded 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 As needed CALCIUM CARBONATE/VITAMIN D3 Take by mouth 0 06/2010 (CALCIUM WITH VITAMIN D daily. ORAL) multivitamin capsule Take by mouth 0 11/13/2009 daily. aspirin 81 mg chewable Chew 1 tablet (81 90 tablet 0 201705/17/2018 tablet mg total) 2 (two) times a day. hydroCHLOROthiazide Take 1 tablet (25 90 tablet 3 8 04/01/2018 (for_HYDRODIURIL) 25 mg mg total) by tablet mouth daily. lisinopril Take 1 tablet (5 90 tablet 3 10/12/2017 11/16/19 19 (for_PRINIVIL,ZESTRIL) 5 mg mg total) by tablet mouth daily. oxyCODONE (ROXICODONE) 5 mg Take 1 tablet (5 90 tablet 0 06/03/2018 immediate release tablet mg total) by mouth every 4 (four) hours as needed for moderate pain or score 4-6 of 10. pantoprazole (for_PROTONIX) Take 1 tablet (20 90 tablet 3 0 01/08/2018 12/06/2018 20 mg EC tablet mg total) by mouth daily. potassium 99 mg tablet Take 1 tablet by 0 04/01/2018 mouth daily. potassium chloride (K-TAB) Take 99 mEq by 0 03/31/2018 20 mEq CR tablet mouth daily. sennosides-docusate sodium Take 1 tablet by 30 tablet 0 06/03/2018 (SENOKOT-S) 8.6-50 mg per mouth 2 (two) tablet times a day. documented as of this encounter Plan of Treatment Not on filedocumented as of this encounter Procedures Procedure Name Priority Date/Time Associated Diagnosis Comme nts HEMOGLOBIN, B Routine 03/22/2018 3:52 PM Primary Osteoarthriti s Results for this CDT Knee Left procedure are i n the results section. TYPE AND SCREEN Routine 03/22/2018 3:51 PM Primary Osteoarthri tis Results for this CDT Knee Left procedure are i n the results section. documented in this encounter Results Hemoglobin (03/22/2018 3:52 PM CDT) P athologist Signature Hemoglobin 12.4 11.6 - 15.0 03/22/2018 [facility] g/dL 4:08 PM CDT [facility] Specimen Anatomical Collection Method Collection Time Receive d Time (Source) Location / / Volume Laterality Blood (Blood, 03/22/2018 3:52 PM 03/22/20 18 4:04 Venous) CDT PM CDT Fausto Hoffman D.O. LAB BLOOD ADD-ON Performing Organization Address City/State/ZIP Code Phon e Number [facility] [address] [place] [address] LAB Type and screen (03/22/2018 3:51 PM CDT) [facility] gist Method Time Signature ABO Group O 03/22/2018 [facility] 4:54 PM CDT [facility] Rh Type POS 03/22/2018 [facility] 4:54 PM CDT [facility] Antibody Screen NEG 03/22/2018 [facility] 4:54 PM CDT [facility] Type & Screen 05/20/2018 [facility] Expiration 23:59 [facility] ELXM Eligible Y 03/22/2018 [facility] 4:54 PM CDT [facility] Specimen Anatomical Collection Method Collection Time Receive d Time (Source) Location / / Volume Laterality Blood (Blood, 03/22/2018 3:51 PM 03/22/20 18 4:04 Venous) CDT PM CDT Narrative [facility] - 03/22/2018 4:54 PM CDT Specimen Information: Specimen ID: [id number] Specimen Type: Blood Specimen Collection Start Date: 03/22/20 18 ??3:51 PM Specimen Received Date: 03/22/2018 ??4:0 4 PM Specimen ID: [id number] Specimen Type: Blood Specimen Collection Start Date: 03/22/20 18 ??3:44 PM Specimen Received Date: 03/22/2018 ??3:4 4 PM Fausto Hoffman D.O. LAB BLOOD BANK TEST ORDERABL ES Performing Organization Address [facility] Code Phon e Number [address] [address] LAB documented in this encounter Visit Diagnoses Diagnosis Primary Osteoarthritis Knee Left documented in this encounter Care Teams Senior Net Developer Architect Relationship Specialty Start Date End Date Chastity Davidson M.D. PCP - General 03/19/17 01/11/20 documented as of this encounter
--- OUTSIDE RECORDS SUMMARY | 2022-08-31 10:08 | XMS_ITS | Encounter Summary ---
:1945 Author Organization [facility] Address [address] [place] [address] Care Team Providers Name Role Phone Chastity Davidson M.D. Primary Care Provider Unavailable Reason for Visit Reason Comments Pain Pain Outpatient (Routine) - Closed Specialty Diagnoses / Procedures Referred By Contact Refer red To Contact Orthopedic Surgery Diagnoses Pain Knee Bilateral [facility] [address] [place] [address] Referral ID Status Reason Start Date Expiration Date Visits Requ ested Visits Authorized [id number] Closed 02/23/2018 08/22/2018 1 1 Encounter Details Date Type Department Care Team Description 03/03/2018 Comprehensive Visit Department of Fausto Hoffman Osteoarthritis Knee Right (Primary Dx); Orthopedic Surgery J, D.OLa Primary Osteoarthritis Knee Left; in [place] [id number] [facility] Pain Knee Bilateral [place], [place] [address] [facility] [address] [place], [place] [phone] [address] (Work) [phone] Social History Tobacco Use Types Packs/Day Years Used Date Smoking Tobacco: Former Cigarettes 0.3 35 Smokeless Tobacco: Never Alcohol Use Standard Drinks/Week Comments Yes 3 (1 standard drink = 0.6 oz pure alcoho l) none since Oct Sex Assigned at Date Recorded 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 - 03/03/2018 2:45 PM [...] Procedure: COLONOSCOPY; Surgeon: Jazmyne Weaver M.D.; Location: [facility] LAB ??? ESOPHAGOGASTRODUODENOSCOPY N/A 02/01/2018 Procedure: ESOPHAGOGASTRODUODENOSCOPY; Surgeon: Jazmyne Weaver M.D.; Location: [facility] LAB ??? TONSILLECTOMY AND [...] Not on filedocumented as of this encounter Results DX Knee Left Standing [...] Stable left total knee arthr oplasty. Fausto Hoffman D.O. IMG DIAGNOSTIC IMAGING PROCE KIN Hemoglobin (03/22/2018 3:52 PM CDT) P athologist Signature Hemoglobin 12.4 11.6 - 15.0 03/22/2018 [facility] g/dL 4:08 PM CDT [facility] Specimen Anatomical Collection Method Collection Time Receive d Time (Source) Location / / Volume Laterality Blood (Blood, 03/22/2018 3:52 PM 03/22/20 18 4:04 Venous) CDT PM CDT Fausto Hoffman D.O. LAB BLOOD ADD-ON Performing Organization Address City/[facility]/ZIP Code Phon e Number [facility] [address] [place] [address] LAB Type and screen (03/22/2018 3:51 PM CDT) [facility] Method Time Signature ABO Group O 03/22/2018 [facility] 4:54 PM CDT [facility] Rh Type POS 03/22/2018 [facility] 4:54 PM CDT [facility] Antibody Screen NEG 03/22/2018 [facility] 4:54 PM CDT [facility] Type & Screen 05/20/2018 [facility] Expiration 23:59 [facility] ELXM Eligible Y 03/22/2018 [facility] 4:54 PM CDT [facility] Specimen Anatomical Collection Method Collection Time Receive d Time (Source) Location / / Volume Laterality Blood (Blood, 03/22/2018 3:51 PM 03/22/20 18 4:04 Venous) CDT PM CDT Narrative [facility] - 03/22/2018 4:54 PM CDT Specimen Information: Specimen ID: [id number] Specimen Type: Blood Specimen Collection Start Date: 03/22/20 18 ??3:51 PM Specimen Received Date: 03/22/2018 ??4:0 4 PM Specimen ID: [id number] Specimen Type: Blood Specimen Collection Start Date: 03/22/20 18 ??3:44 PM Specimen Received Date: 03/22/2018 ??3:4 4 PM Fausto Hoffman D.O. LAB BLOOD BANK TEST ORDERABL ES Performing Organization Address City/[facility]/ZIP Code Phon e Number [address] [address] LAB MRSA/Staphylococcus aureus, Nasal, by PCR (03/03/2018 4:06 PM CDT) P athologist Signature MRSA, PCR Negative Negative 03/03/2018 [facility] 7:43 PM CDT [facility] LAB Comment: Notes\S\\S\mary jane rockwell 1945 Staphylococcus aureus, Negative Negative 03/03/2018 7:43 P M [facility] PCR CDT [facility] LAB Comment: Notes\S\\S\mary jane rockwell 1945 Specimen Anatomical Collection Method Collection Time Receive d Time (Source) Location / / Volume Laterality Swab (Nares) 03/03/2018 4:06 PM 8 4:30 CDT PM CDT Fausto Hoffman D.O. 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 PCP - General 03/19/17 01/11/20 documented as of this encounter
--- OUTSIDE RECORDS SUMMARY | 2022-08-31 10:08 | XMS_ITS | Encounter Summary ---
:1945 Author Organization [facility] Address [address] [place] [address] Care Team Providers Name Role Phone Chastity Davidson M.D. Primary Care Provider Unavailable Reason for Referral Outpatient (Routine) - Closed Specialty Diagnoses / Procedures Referred By Contact Refer zoraida To Contact Diagnoses Preoperative Exam Chastity Davidson M.D. [facility] Procedures ECG 12 Lead OR EKG 12 LEAD TRACE ONLY OR EKG I&R ONLY [address] [place] [address] Referral ID Status Reason Start Date Expiration Date Visits Requ ested Visits Authorized [id number] Closed 03/08/2018 03/08/2019 1 1 Reason for Visit Reason Comments Pre-op Exam Lt knee [facility] Hoffman. Appointment Request (Routine) - Closed Specialty Diagnoses / Procedures Referred By Contact Ana Laura conway To Contact Orthopedic Surgery Referral ID Status Reason Start Date Expiration Date Visits Requ ested Visits Authorized [id number] Closed 03/03/2018 03/03/2019 1 1 Encounter Details Date Type Department Care Team Description 03/08/2018 Office Visit Department of Arelis Weberoper ative Exam (Primary Dx); Medicine in [place] [facility] [address] [place] [address] Social History Tobacco Use Types Packs/Day Years Used Date Smoking Tobacco: Former Cigarettes 0.3 35 Smokeless Tobacco: Never Alcohol Use Standard Drinks/Week Comments Yes 3 (1 standard drink = 0.6 oz pure alcoho l) none since Oct Sex Assigned at Date Recorded 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 - 03/08/2018 2:15 PM CDT SUBJECTIVE CHIEF COMPLAINT/REASON FOR VISIT Chief Complaint Patient presents with ??? Pre-op Exam Lt knee [facility] Hoffman. HISTORY OF PRESENT ILLNESS Mary Jane Rockwell is a 72 y.o. female who presents for preoperative a valve at the requested Dr. Hoffman for left knee total arthroplasty which will take place at [facility] on March 30, 2018. REVIEW OF SYSTEMS See pertinent findings noted above in the History of Present Illness. Constitutional: Positive for weight loss of more than 10 pounds. Decreased appetite: Intentional. Musculoskeletal: Positive for arthralgias and pain or stiffness in the joints. Knee pain bilateral All other systems reviewed and are negative. The following systems were negative: Skin, Eyes, ENT, CV, Respiratory, GI, , Hematologic, Neuro, Psych MEDICAL HISTORY Patient Active Problem List Diagnosis ??? Hypertension Benign Renovascular ??? Reflux Esophageal ??? Arthropathy ??? Hemorrhage Gastrointestinal ??? Anemia ??? Screening Cancer Colon ??? Primary Osteoarthritis Knee Right ??? Primary Osteoarthritis Knee Left SURGICAL HISTORY Past Surgical History: Procedure Laterality Date ??? COLONOSCOPY N/A 02/01/2018 Procedure: COLONOSCOPY; Surgeon: Jazmyne Weaver M.D.; Location: [facility] ??? CYST REMOVAL ??? ESOPHAGOGASTRODUODENOSCOPY N/A 02/01/2018 Procedure: ESOPHAGOGASTRODUODENOSCOPY; Surgeon: Jazmyne Weaver M.D.; Location: [facility] ??? TONSILLECTOMY AND ADENOIDECTOMY N/A [...] Cigarettes ??? Smokeless tobacco: Never Used ??? Alcohol use 1.8 oz/week 3 Glasses of wine per week Comment: none since Hira ALLERGIES/CONTRAINDICATIONS Allergies Allergen Reactions ??? Gentamicin Other (see comments) ??? Neosporin (Lco-Env-Opglt) [Ebudagrn-Pvchrwfbec-Wflrhuxrp] Other (see comments) ??? Tobramycin Other (see comments) CURRENT MEDICATIONS Current Outpatient Prescriptions Medication Sig Dispense Refill ??? acetaminophen (for_TYLENOL 8 HR) 650 mg ER tablet Take 1,300 mg by mouth 2 (two) times a day. Asneeded ??? CALCIUM CARBONATE/VITAMIN D3 (CALCIUM WITH VITAMIN D ORAL) Take by mouth daily. ??? hydroCHLOROthiazide (for_HYDRODIURIL) 25 mg tablet Take 1 tablet (25 mg total) by mouth daily. 90 tablet 3 ??? lisinopril (for_PRINIVIL,ZESTRIL) 5 mg tablet Take 1 tablet (5 mg total) by mouth daily. 90 tablet 3 ??? multivitamin capsule Take by mouth daily. ??? pantoprazole (for_PROTONIX) 20 mg EC tablet Take 1 tablet (20 mg total) by mouth daily. 90 tablet 3 ??? potassium chloride (K-TAB) 20 mEq CR tablet Take 99 mEq by mouth daily. OBJECTIVE VITAL SIGNS BP 104/70 (BP Location: Left arm, Patient Position: Sitting, Cuff Size: Large) Pulse 80 Temp 36.4 ??C (Temporal) Resp 14 Ht 158 cm Wt 87.2 kg BMI 34.93 kg/m?? PHYSICAL EXAMINATION General: Alert, in no apparent distress, nontoxic appearing. Mood and affect were appropriate to thesituation. HEENT: No pallor or icterus. Conjunctivae and sclerae clear without redness or drainage. Oropharynx was clear with no erythema, tonsillar enlargement but there was some clear drainage in the posterior.Moist mucous membranes. Tympanic membranes pearly mathews bilaterally. Neck: Trachea was midline. No lymphadenopathy. No [...] Extremities: Without redness, swelling, or edema. Skin: Brenas, warm, dry and intact with no rashes noted. Neurologic: No focal deficits. Sensorimotor function was intact in the bilateral upper and lower extremities. Pupils were equal, round, and reactive to light. Normal gait and posture noted. DTR???s 2+/4, Strengths 5/5. DIAGNOSTICS Results for orders placed or performed in visit on 03/08/18 Bacterial Culture, Aerobic + Susc, Urine Result Value Ref Range Bacterial Culture, Aerobic, Urine No growth after 1 day of incubation. BMP (Basic Metabolic Panel) Result Value Ref Range Potassium, S 3.7 3.6 - 5.2 mmol/L Sodium, S 140 135 - 145 mmol/L Chloride, S 98 98 - 107 mmol/L Bicarbonate, S 29 22 - 29 mmol/L Anion Gap 13 7 - 15 Bld Urea Nitrog(BUN), S 22 (H) 6 - 21 mg/dL Creatinine, S 0.81 0.59 - 1.04 mg/dL eGFR-Non Black 73 >=60 mL/min/BSA eGFR-Black 84 >=60 mL/min/BSA Calcium, Total 10.1 8.8 - 10.2 mg/dL Glucose, S 98 70 - 140 mg/dL CBC with Differential, Blood Result Value Ref Range Hemoglobin 12.8 11.6 - 15.0 g/dL Hematocrit 39.5 35.5 - 44.9 % Erythrocytes 4.07 3.92 - 5.13 x10(12)/L MCV 97.1 78.2 - 97.9 fL RBC Distrib Width 13.6 12.2 - 16.1 % Platelet Count 316 157 - 371 x10(9)/L Leukocytes 7.0 3.4 - 9.6 x10(9)/L Neutrophils 3.86 1.56 - 6.45 x10(9)/L Lymphocytes 2.21 0.95 - 3.07 x10(9)/L Monocytes 0.69 0.26 - 0.81 x10(9)/L Eosinophils 0.21 0.03 - 0.48 x10(9)/L Basophils 0.02 0.01 - 0.08 x10(9)/L Urinalysis with Microscopic if Indicated Result Value Ref Range Source Midstream Clarity Clear Clear Color Yellow Blood Trace (A) Negative Nitrite Negative Negative Leukocyte Esterase Negative Negative Protein Negative mg/dL Glucose Negative Negative mg/dL Ketones, QI(U) Negative Negative mg/dL Bilirubin Negative Negative pH 6.5 5.0 - 8.0 Specific [place] 1.010 1.001 - 1.035 Urobilinogen 0.2 0.2 - 1.0 mg/dL PT (Prothrombin Time) with INR Result Value Ref Range Prothrombin Time, P 9.6 8.8 - 11.9 sec INR 1.0 0.9 - 1.2 Microscopic Manual Result Value Ref Range White Blood Cells None Seen /hpf Red Blood Cells Occ-2 0 - 2 /hpf ECG 12 Lead Result Value Ref Range Ventricular Rate ECG/Min 63 BPM OR Interval 144 ms QRSD Interval 90 ms QT Interval 420 ms QTC Interval 429 ms P [place] 36 degrees R [place] -8 degrees T Wave [place] 25 degrees ASSESSMENT / PLAN #1 Preoperative Exam She is cleared for her surgery as all her labs are within normal limits in her EKG is normal sinus rhythm. - CBC with Differential, Blood - Bacterial Culture, Aerobic + Susc, Urine - Urinalysis with Microscopic if Indicated - PT (Prothrombin Time) with INR - ECG 12 Lead #2 Hypertension Benign Renovascular Electrolytes are within normal limits. 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 documented in this encounter Plan of Treatment Not on filedocumented as of this encounter Procedures Procedure Name Priority Date/Time Associated Diagnosis Comme nts URINALYSIS WITH Routine 03/08/2018 3:28 PM Preoperative Exam R esults for this MICROSCOPIC IF CDT procedure are in INDICATED, U the results section. MICROSCOPIC MANUAL Routine 03/08/2018 3:28 PM Res ults for this CDT procedure are i n the results section. BACTERIAL CULTURE, Routine 03/08/2018 3:27 PM Preoperative Exa m Results for this AEROBIC + SUSC, CDT procedure ar e in URINE the results section. ECG Routine 03/08/2018 3:18 PM Preoperative Exam Resu lts for this CDT procedure are i n the results section. PROTHROMBIN TIME Routine 03/08/2018 3:14 PM Preoperative Exam Results for this (PT), P CDT procedure are i n the results section. CBC WITH Routine 03/08/2018 3:14 PM Preoperative Exam Resu lts for this DIFFERENTIAL, B CDT procedure ar e in the results section. BASIC METABOLIC Routine 03/08/2018 3:14 PM Hypertension Benign Results for this PANEL, S/P CDT Renovascular procedure are i n the results section. documented in this encounter Results Microscopic Manual (03/08/2018 3:28 PM CDT) Analysis Performed At Patho logist Time Signature White Blood None Seen /hpf 03/08/2018 [facility] Cells 4:28 PM CDT [facility] Comment: ----REFERENCE VALUE---- Males: 0-3 Females: 0-10 Unknown: 0-10 Red Blood Cells Occ-2 0 - 2 /hpf 03/08/2018 4:28 PM CDT [facility] Specimen Anatomical Collection Method Collection Time Receive d Time (Source) Location / / Volume Laterality Urine 03/08/2018 3:28 PM 8 4:20 CDT PM CDT Chastity Davidson M.D. LAB URINE ORDERABLES Performing Organization Address City/State/ZIP Code Phon e Number [facility] [address] [place], [place] [address] [place] [facility] (ABNORMAL) Urinalysis with Microscopic if Indicated (03/08/2018 3:28 PM CDT) P athologist Signature Source Midstream 03/08/2018 [facility] 3:33 PM T [facility] Clarity Clear Clear 03/08/2018 [facility] 3:33 PM T [facility] Color Yellow 03/08/2018 [facility] 3:33 PM T [facility] Comment: ----REFERENCE VALUE---- Colorless Yellow [place] Blood Trace (A) Negative 03/08/2018 3:33 PM CDT [facility] Nitrite Negative Negative 03/08/2018 3:33 PM CDT [facility] Leukocyte Esterase Negative Negative 03/08/2018 3:33 PM CD T [facility] Protein Negative mg/dL 03/08/2018 3:33 PM CDT [facility] Comment: ----REFERENCE VALUE---- Negative Trace Glucose Negative Negative mg/dL 03/08/2018 3:33 PM [facility] Ketones, QI(U) Negative Negative mg/dL 03/08/2018 3:33 PM [facility] Bilirubin Negative Negative 03/08/2018 3:33 PM [facility] pH 6.5 5.0 - 8.0 03/08/2018 3:33 PM [facility] Specific [place] 1.010 1.001 - 1.035 03/08/2018 3:33 PM [facility] Urobilinogen 0.2 0.2 - 1.0 mg/dL 03/08/2018 3:33 PM [facility] Specimen Anatomical Collection Method Collection Time Receive d Time (Source) Location / / Volume Laterality Urine (Urine, 03/08/2018 3:28 PM 03/08/20 18 3:28 Clean Catch) CDT PM CDT Chastity Davidson M.D. LAB URINE ORDERABLES Performing Organization Address City/State/ZIP Code Phon e Number [facility] [address] [place], [place] [address] [place] [facility] Bacterial Culture, Aerobic + Susc, Urine (03/08/2018 3:27 PM CDT) Patholo gist Method Time Signature Bacterial No growth 03/09/2018 [facility] Culture, after 1 day 4:06 PM CDT HEALTH Aerobic, Urine of SYSTEM- [facility] LAB Specimen Anatomical Collection Method Collection Time Receive d Time (Source) Location / / Volume Laterality Urine (Urine, 03/08/2018 3:27 PM 03/08/20 18 Midstream) CDT 11:16 PM CDT Comment: Specimen Source Site: Urine Chastity Davidson M.D. LAB MICROBIOLOGY - GENERAL O RDERABLES Performing Organization Address City/[facility]/ZIP Code Phon e Number [facility] [address] [place] [address] LAB ECG 12 Lead (03/08/2018 3:18 PM CDT) P athologist Signature Ventricular Rate 63 BPM MUSE ECG/Min OR Interval 144 ms MUSE QRSD Interval 90 ms MUSE QT Interval 420 ms MUSE QTC Interval 429 ms MUSE P [place] 36 degrees MUSE R [place] -8 degrees MUSE T Wave [place] 25 degrees MUSE Specimen Anatomical Collection Method Collection Time Receive d Time (Source) Location / / Volume Laterality 03/08/2018 3:18 PM 8 3:35 CDT PM CDT Impressions MUSE - 03/08/2018 3:35 PM CDT Normal sinus rhythm Normal ECG No previous ECGs available Narrative This result has an attachment that is no t available. Chastity Davidson M.D. ECG ORDERABLES Performing Organization Address City/[facility]/ZIP [facility] Phon e Number MUSE MUSE NA PT (Prothrombin Time) with INR (03/08/2018 3:14 PM CDT) P athologist Signature Prothrombin 9.6 8.8 - 11.9 03/08/2018 [facility] Time, P sec 4:33 PM [facility] [place] [facility] INR 1.0 0.9 - 1.2 03/08/2018 [facility] 4:33 PM CDT [facility] Comment: Standard intensity warfarin therapeutic range: 2.0 to 3.0 High intensity warfarin therapeutic rang e: 2.5 to 3.5 Specimen Anatomical Collection Method Collection Time Receive d Time (Source) Location / / Volume Laterality Blood (Blood, 03/08/2018 3:14 PM 03/08/20 18 4:20 Venous) CDT PM CDT Chastity Davidson M.D. LAB BLOOD ADD-ON Performing Organization Address City/State/ZIP Code Phon e Number [facility] [address] [facility], [place] [address] [facility] CBC with Differential, Blood (03/08/2018 3:14 PM CDT) P athologist Signature Hemoglobin 12.8 11.6 - 03/08/2018 [facility] 15.0 g/dL 4:23 PM T [facility] Hematocrit 39.5 35.5 - 03/08/2018 [facility] 44.9 % 4:23 PM T [facility] Erythrocytes 4.07 3.92 - 03/08/2018 [facility] 5.13 4:23 PM CDT HEALTH x10(12)/L [facility] [place] [facility] MCV 97.1 78.2 - 03/08/2018 [facility] 97.9 fL 4:23 PM T [facility] RBC Distrib Width 13.6 12.2 - 03/08/2018 [facility] 16.1 % 4:23 PM T [facility] Platelet Count 316 157 - 371 03/08/2018 [facility] x10(9)/L 4:23 PM T [facility] Leukocytes 7.0 3.4 - 9.6 03/08/2018 [facility] x10(9)/L 4:23 PM T [facility] Neutrophils 3.86 1.56 - 03/08/2018 [facility] 6.45 4:23 PM CDT HEALTH x10(9)/L [facility] [place] [facility] Lymphocytes 2.21 0.95 - 03/08/2018 [facility] 3.07 4:23 PM CDT HEALTH x10(9)/L [facility]- [place] [facility] Monocytes 0.69 0.26 - 03/08/2018 [facility] 0.81 4:23 PM CDT HEALTH x10(9)/L [facility]- [place] [facility] Eosinophils 0.21 0.03 - 03/08/2018 [facility] 0.48 4:23 PM CDT HEALTH x10(9)/L [facility] [place] [facility] Basophils 0.02 0.01 - 03/08/2018 [facility] 0.08 4:23 PM [facility] x10(9)/L [facility] [place] [facility] Specimen Anatomical Collection Method Collection Time Receive d Time (Source) Location / / Volume Laterality Blood (Blood, 03/08/2018 3:14 PM 03/08/20 18 4:20 Venous) CDT PM CDT Chastity Davidson M.D. LAB BLOOD ADD-ON Performing Organization Address City/State/ZIP Code Phon e Number [facility] [address] [facility], [place] [address] [facility] ([facility]NORMAL[facility] BMP (Basic Metabolic Panel) (03/08/2018 3:14 PM CDT) P athologist Signature Potassium, S 3.7 3.6 - 5.2 03/08/2018 [facility] mmol/L 5:09 PM [facility] [facility] Sodium, S 140 135 - 145 03/08/2018 [facility] mmol/L 5:09 PM [facility] [place] [facility] Chloride, S 98 98 - 107 03/08/2018 [facility] mmol/L 5:09 PM [facility] Bicarbonate, S 29 22 - 29 03/08/2018 [facility] mmol/L 5:09 PM [facility] Anion Gap 13 7 - 15 03/08/2018 [facility] 5:09 PM [facility] BUN (Blood Urea 22 (H) 6 - 21 03/08/2018 [facility] Nitrogen), S mg/dL 5:09 PM [facility] [facility] Creatinine 0.81 0.59 - 03/08/2018 [facility] 1.04 mg/dL 5:09 PM [facility] eGFR-Non 73 >=60 03/08/2018 [facility] Black/ mL/min/BSA 5:09 PM [facility] Comment: ----ADDITIONAL INFORMATION---- Estimated GFR calculated using the 2009 CKD_EPI creatinine equation. eGFR-Black/ 84 >=60 mL/min/BSA 2017 5:09 PM [facility] [place] [facility] Comment: ----ADDITIONAL INFORMATION---- Estimated GFR calculated using the 2009 CKD_EPI creatinine equation. Calcium, Total, S 10.1 8.8 - 10.2 mg/dL 03/08/2018 5 :09 PM CDT [facility] Glucose, S 98 70 - 140 mg/dL 03/08/2018 5:09 PM CDT [facility] [place] [facility] Specimen Anatomical Collection Method Collection Time Receive d Time (Source) Location / / Volume Laterality Blood (Blood, 03/08/2018 3:14 PM 03/08/20 18 4:20 Venous) CDT PM CDT Chastity Davidson M.D. LAB BLOOD ADD-ON Performing Organization Address City/State/ZIP Code Phon e Number [facility]- [address] [place] [phone] [place] [facility] documented in this encounter Visit Diagnoses Diagnosis Preoperative Exam - Primary Hypertension Benign Renovascular documented in this encounter Care Teams Credit Correspondence Clerk Relationship Specialty Start Date End Date Chastity Davidson M.D. PCP - General 03/19/17 01/11/20 documented as of this encounter
--- OUTSIDE RECORDS SUMMARY | 2022-08-31 10:08 | XMS_ITS | Encounter Summary ---
:1945 Author Organization [facility] Address [address] [place] [address] Care Team Providers Name Role Phone Chastity Davidson M.D. 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 PCP - General 03/19/17 01/11/20 documented as of this encounter
--- OUTSIDE RECORDS SUMMARY | 2022-08-31 10:08 | XMS_ITS | Encounter Summary ---
:1945 Author Organization [facility] Address [address] [place] [address] Care Team Providers Name Role Phone Chastity Davidson M.D. Primary Care Provider Unavailable Reason for Visit Auth/Cert Specialty Diagnoses / Procedures Referred By Contact Refer red To Contact Diagnoses Primary Osteoarthritis Knee Left Procedures [place] ARTHRO KNEE CONDYLE&PLAT (TKA) ARTHROPLASTY REPLACEMENT TOTAL KNEE Referral ID Status Reason Start Date Expiration Date Visits Requ ested Visits Authorized [id number] 1 1 Encounter Details Date Type Department Care Team Description 03/30/2018 Surgery [facility] NAVEED OR Fausto Hoffman, ARTHROPLASTY REPLACEMENT [address] [facility] 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 Primary Care Providers: Chastity Davidson M.D. ([facility]) [address] [place] [phone] Primary Care Provider Primary Care Provider Admission Date: 03/30/2018 Discharge Date: PRINCIPAL DIAGNOSIS Primary Osteoarthritis Knee Left SECONDARY DIAGNOSES Principal Problem: Primary Osteoarthritis Knee Left Active Problems: Primary Osteoarthritis Knee Right Resolved Problems: * No resolved hospital problems. * Operative Procedures: Scheduled (Keven), Completed (Comp) or Canceled (Can) Case IDs Date Procedure Surgeon Location Status [id number] 03/30/18 ARTHROPLASTY REPLACEMENT TOTAL KNEE Fausto Hoffman D.O. [facility] OR Comp DISCHARGE DISPOSITION Home or Self Care [1] OUTPATIENT FOLLOW UP Future Appointments Date Time Provider Department Center 04/12/2018 11:30 AM Gabriela Hernandez P.A.-C. ORS [facility] 05/10/2018 10:15 AM DX [facility] [address] RICARDO CALDERON [facility] 05/10/2018 11:00 AM Fausto Hoffman D.O. ORS [facility] 07/05/2018 10:15 AM DX [facility] [address] [facility] 07/05/2018 11:00 AM Gabriela Hernandez P.A.-C. ORS [facility] TEST RESULTS PENDING AT DISCHARGE DETAILS OF [...] a.m. and p.m. sessions. 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 OBJECTIVE Pain Assessment Pain Assessment: [...] with the plan of care and goals. CRIMINAL JUSTICE SOCIAL WORKER Trackin Time Spent with Patient Group Therapy (min): 120 min Total Treatment Time (min): 120 min Functional G-code Worksheet Bonilla Bragg M.D. - 04/01/2018 11:31 AM [...] spent 25 minutes, 20 minutes spent in cuzy-ci-tebd evaluation and coordination of care (This document [...] intact. Intake/Output Summary (Last 24 hours) at 03/31/186 Last data filed at 03/31/18 1355 Gross [...] on lower side > Please call hospitalist [facility] team with questions > In regards to [...] spent 25 minutes, 18 minutes spent in rluu-iw-yvbc evaluation and coordination of care (This document was generated using voice recognition software and may contain errors including errors in grammar, punctuation and spellings as well as unintended word substitution errors. In order to expedite delivery, this note was not edited. If there are any questions or concerns, please feel free to contact the dictating provider for clarification) Nestor Frances P.T.Nicole - 03/31/2018 1:00 PM CDT Physical Therapy [...] with the plan of care and goals. CRIMINAL JUSTICE SOCIAL WORKER Trackin Time Spent with Patient Group Therapy [...] and provider: Chastity Davidson M.D. Primary Language: Maltese Filament Welder services used: None. Legal Status: No legal concerns noted. Legal Decision Maker: Self Citizenship: [place] Citizen REASON FOR CONSULT Psychosocial assessment, Discharge Planning Electrical Fitter contacted patient at home to complete pre-surgical discharge planning. Patient is a 72 y.o. female who is anticipated to undergo surgery with Dr. Hoffman on her knee. Patient shared she is currently independent with her ADL's and has no concerns of returning home. patient reports her and daughter will assist her as needed. Electrical Fitter thanked patient for sharing her discharge plan [...] Procedure: COLONOSCOPY; Surgeon: Jazmyne Weaver M.D.; Location: [facility] ??? CYST REMOVAL ??? ESOPHAGOGASTRODUODENOSCOPY N/A 02/01/2018 Procedure: ESOPHAGOGASTRODUODENOSCOPY; Surgeon: Jazmyne Weaver M.D.; Location: [facility] ??? TONSILLECTOMY AND ADENOIDECTOMY N/A 1950 Tonsillectomy and adenoidectomy SOCIAL HISTORY Early growth and development: The patient met social and developmental milestones as expected. Family of Origin: Patient is . She lives with her spouse, Nima, of 48 years. They live in their home outside of [place], [place]. Patient has three adult children and states they are very supportive. Marital Status / Family / Household Status: Household information: Number of persons in household: 2 Relationships of persons in household: patient and spouse/SO Type of housing: Home Pets: Not discussed. Support Systems: Spouse, Children. We have not received permission to contact them. Primary caregiver: Self Spirituality / Gnosticist / Culture: No quaker affiliation History: None. Education: Not discussed. Employment: [...] Communication: Can write, Talks, Understands speaking, Understands Maltese, Reads It is anticipated that the patient will need assistance with tasks appropriate to the patient's age/development, None. ASSISTIVE DEVICES Patient has the following equipment: Not discussed. Patient anticipates potentially needing the following additional equipment: Walker INCOME TAX ADJUSTER Formal and Informal Resources: The patient does not have an identified caregiver. FINANCES/INSURANCE Primary insurance: [facility] Secondary insurance: N/A Income Information Does the [...] surgery with Dr. Hoffman on March 30. Electrical Fitter contacted patient to complete presurgical discharge planning. Patient desires to return home at discharge as her will assist as well as her daughter. Patient had no questions or concerns for writer producer at this time. Anticipated barriers to the [...] Procedure: COLONOSCOPY; Surgeon: Jazmyne Weaver M.D.; Location: [facility] ??? ESOPHAGOGASTRODUODENOSCOPY N/A 02/01/2018 Procedure: ESOPHAGOGASTRODUODENOSCOPY; Surgeon: Jazmyne Weaver M.D.; Location: [facility] ??? TONSILLECTOMY AND ADENOIDECTOMY N/A [...] documented in this encounter Consult Notes Debbie Ram, O.T. - 03/31/2018 3:11 PM CDT Occupational [...] unit Bathroom Toilet: Comfort height Level of Rex: Independent with ADLs and functional transfers, Independent [...] her hospitalization, patient was residing in a [facility] with her spouse where she was independent [...] is a 72 y.o. female admitted to [facility] on 03/30/2018 due to Primary Osteoarthritis Knee Left [M17.12] Primary Osteoarthritis Knee Right [M17.11]. Electrical Fitter is familiar with patient as writer producer previously complete a full Psychosocial Assessment on March 22, 2018. At that time, patients' plan was to return home with her . OBJECTIVE Electrical Fitter received the above consult. Electrical Fitter reviewed physical therapy note and notes patient is anticipated to return home with her family upon discharge. Electrical Fitter will continue to be available as needs arise. ASSESSMENT / PLAN ASSESSMENT Patient was not assessed. PLAN 1. Care team reporting patient is expected to discharge to home when medically stable. 2. There are no identified social work needs at this time. 3. Social work will assist as needed and requested. Lary Bethea 03/31/2018 Ziyad Gavin PBruno - 03/30/2018 3:00 PM CDT Physical Therapy [...] Procedure: COLONOSCOPY; Surgeon: Jazmyne Weaver M.D.; Location: [facility] ??? CYST REMOVAL ??? ESOPHAGOGASTRODUODENOSCOPY N/A 02/01/2018 Procedure: ESOPHAGOGASTRODUODENOSCOPY; Surgeon: Jazmyne Weaver M.D.; Location: [facility] ??? TONSILLECTOMY AND ADENOIDECTOMY N/A [...] comments) Made my eyes worse ??? Neosporin (Cvs-Onf-Ysxmy) [Vvnigcqm-Ygkjoedbbr-Ckbgkqumy] Other (see comments) ??? Tobramycin Other (see [...] Position: Pulse: 69 65 72 83 Resp: Temp: (!) 35.9 ??C (!) 35.9 ??C [...] Scheduled Meds: acetaminophen 1,000 mg oral Q6H KEEVN [START ON 03/31/2018] aspirin 81 mg oral [...] spent 60 minutes, 50 minutes spent in ozrq-dm-pehv evaluation and coordination of care Balwinder Chaudhry [...] PM CDT INPATIENT DISCHARGE SUMMARY Discharge Provider: No att. providers found Admission Date: 03/30/2018 Discharge [...] tolerated ambulating well and slept between cares. Gi Schwab R.N. - 03/30/2018 7:14 PM CDT [...] Post-Operative Diagnosis: Findings: Complications: Description of Procedure: AUDIO VISUAL PRODUCTION SPECIALIST: Ileana Hernandez PA-C -The physician legal administrative assistant was necessary in the surgical case as described above. The presence of a skilled physician legal administrative assistant was integral for patient positioning, retraction, [...] Implant Name Type Inv. Item Serial No. Customer Contact Representative Lot No. LRB No. Used Action PALACOS R BONE CEMENT Knee Implant [employer] [id number] Left 2 Implanted KN FEM ATT LT CMNT BEENA SZ-4N - [id number] Knee Implant KN FEM ATT LT CMNT BEENA SZ-4N Depuy Spine [id number] Left 1 Implanted BSPLT TIB ATT ROT SZ3 - [id number] Knee Implant BSPLT TIB ATT ROT SZ3 Depuy Synthes [id number] Left 1 Implanted PAT ATT MDLZD 35 - [id number] Knee Implant PAT ATT MDLZD 35 Depuy Spine [id number] Left 1 Implanted INS TIB ATT ROT PS SZ4 7 - [id number] Knee Implant INS TIB ATT ROT PS SZ4 7 Depuy Synthes [id number] 1 Implanted Intra-op Medications Date/Time Order Dose [...] Name Type Priority Associated Diagnoses [facility] Referral Routine Primary Osteoarthrit [...] Potassium, S 3.9 3.6 - 5.2 04/01/2018 [facility] mmol/L 7:57 AM CDT [facility] Sodium, S 139 135 - 145 04/01/2018 [facility] mmol/L 7:57 AM CDT [facility] Chloride, S 103 98 - 107 04/01/2018 [facility] mmol/L 7:57 AM T [facility] Bicarbonate, S 25 22 - 29 04/01/2018 [facility] mmol/L 7:57 AM [facility] Anion Gap 11 7 - 15 04/01/2018 [facility] 7:57 AM [facility] BUN (Blood Urea 29 (H) 6 - 21 04/01/2018 [facility] Nitrogen), S mg/dL 7:57 AM T [facility] Creatinine 0.94 0.59 - 04/01/2018 [facility] 1.04 mg/dL 7:57 AM [facility] eGFR-Non 61 >=60 04/01/2018 [facility] Black/ mL/min/BSA 7:57 AM [facility] LAB Comment: ----ADDITIONAL INFORMATION---- Estimated GFR calculated using the 2009 CKD_EPI creatinine equation. eGFR-Black/ 70 >=60 mL/min/BSA 2017 7:57 AM [facility] Comment: ----ADDITIONAL INFORMATION---- Estimated GFR calculated using the 2009 CKD_EPI creatinine equation. Calcium, Total, S 9.1 8.8 - 10.2 mg/dL 04/01/2018 7 :57 AM T [facility] Glucose, S 105 70 - 140 mg/dL 04/01/2018 7:57 AM CDT [facility] Specimen Anatomical Collection Method Collection Time Receive d Time (Source) Location / / Volume Laterality Blood (Blood, 04/01/2018 7:17 AM 04/01/20 18 7:21 Venous) CDT AM CDT Balwinder Chaudhry M.D. LAB BLOOD ADD-ON Performing Organization Address City/State/ZIP Code Phon e Number [facility] [address] [place] [address] LAB (ABNORMAL) CBC with Differential (04/01/2018 7:17 AM CDT) [facility] Method Time Signature Hemoglobin 9.5 (L) 11.6 - 04/01/2018 [facility] 15.0 g/dL 7:28 AM T [facility] Hematocrit 29.8 (L) 35.5 - 04/01/2018 [facility] 44.9 % 7:28 AM CDT [facility] Erythrocytes 3.10 (L) 3.92 - 04/01/2018 [facility] 5.13 7:28 AM CDT HEALTH x10(12)/L [facility] MCV 96.1 78.2 - 04/01/2018 [facility] 97.9 fL 7:28 AM T [facility] RBC Distrib Width 13.8 12.2 - 04/01/2018 [facility] 16.1 % 7:28 AM T [facility] Platelet Count 251 157 - 371 04/01/2018 [facility] x10(9)/L 7:28 AM [facility] Leukocytes 6.3 3.4 - 9.6 04/01/2018 [facility] x10(9)/L 7:28 AM [facility] Neutrophils 3.40 1.56 - 04/01/2018 [facility] 6.45 7:28 AM CDT HEALTH x10(9)/L [facility] LAB Lymphocytes 2.11 0.95 - 04/01/2018 [facility] 3.07 7:28 AM CDT HEALTH x10(9)/L [facility] LAB Monocytes 0.67 0.26 - 04/01/2018 [facility] 0.81 7:28 AM CDT HEALTH x10(9)/L [facility] LAB Eosinophils 0.09 0.03 - 04/01/2018 [facility] 0.48 7:28 AM CDT HEALTH x10(9)/L [facility] LAB Basophils 0.02 0.01 - 04/01/2018 [facility] 0.08 7:28 AM CDT HEALTH x10(9)/L [facility] LAB Specimen Anatomical Collection Method Collection Time Receive d Time (Source) Location / / Volume Laterality Blood (Blood, 04/01/2018 7:17 AM 04/01/20 18 7:21 Venous) CDT AM CDT Gabriela Hernandez P.A.-C. LAB BLOOD ADD-ON Performing Organization Address City/State/ZIP Code Phon e Number [facility] [address] [place] [address] LAB (ABNORMAL) Basic Metabolic Panel (03/31/2018 7:29 AM CD) P athologist Signature Potassium, S 3.7 3.6 - 5.2 03/31/2018 [facility] mmol/L 8:28 AM [facility] Sodium, S 138 135 - 145 03/31/2018 [facility] mmol/L 8:28 AM [facility] Chloride, S 101 98 - 107 03/31/2018 [facility] mmol/L 8:28 AM [facility] Bicarbonate, S 26 22 - 29 03/31/2018 [facility] mmol/L 8:28 AM [facility] Anion Gap 11 7 - 15 03/31/2018 [facility] 8:28 AM [facility] BUN (Blood Urea 24 (H) 6 - 21 03/31/2018 [facility] Nitrogen), S mg/dL 8:28 AM [facility] Creatinine 0.94 0.59 - 03/31/2018 [facility] 1.04 mg/dL 8:28 AM [facility] eGFR-Non 61 >=60 03/31/2018 [facility] Black/ mL/min/BSA 8:28 AM [facility] LAB Comment: ----ADDITIONAL INFORMATION---- Estimated GFR calculated using the 2009 CKD_EPI creatinine equation. eGFR-Black/ 70 >=60 mL/min/BSA 2017 8:28 AM [facility] Comment: ----ADDITIONAL INFORMATION---- Estimated GFR calculated using the 2009 CKD_EPI creatinine equation. Calcium, Total, S 9.4 8.8 - 10.2 mg/dL 03/31/2018 8:28 AM [facility] Glucose, S 151 (H) 70 - 140 mg/dL 03/31/2018 8:28 AM [facility] LAB Specimen Anatomical Collection Method Collection Time Receive d Time (Source) Location / / Volume Laterality Blood (Blood, 03/31/2018 7:29 AM 06/27/20 18 7:43 Venous) CDT AM CDT Balwinder Chaudhry M.D. LAB BLOOD ADD-ON Performing Organization Address City/State/ZIP Code Phon e Number [facility] [address] [place] [address] LAB (ABNORMAL) CBC with Differential (03/31/2018 7:29 AM CDT) [facility] Method Time Signature Hemoglobin 9.6 (L) 11.6 - 03/31/2018 [facility] 15.0 g/dL 7:47 AM CDT [facility] Hematocrit 29.7 (L) 35.5 - 03/31/2018 [facility] 44.9 % 7:47 AM CDT [facility] Erythrocytes 3.12 (L) 3.92 - 03/31/2018 [facility] 5.13 7:47 AM CDT HEALTH x10(12)/L [facility] MCV 95.2 78.2 - 03/31/2018 [facility] 97.9 fL 7:47 AM T [facility] RBC Distrib Width 13.8 12.2 - 03/31/2018 [facility] 16.1 % 7:47 AM CDT [facility] Platelet Count 246 157 - 371 03/31/2018 [facility] x10(9)/L 7:47 AM CDT [facility] Leukocytes 9.3 3.4 - 9.6 03/31/2018 [facility] x10(9)/L 7:47 AM T [facility] Neutrophils 7.65 (H) 1.56 - 03/31/2018 [facility] 6.45 7:47 AM CDT HEALTH x10(9)/L [facility] Lymphocytes 1.05 0.95 - 03/31/2018 [facility] 3.07 7:47 AM CDT HEALTH x10(9)/L [facility] Monocytes 0.60 0.26 - 03/31/2018 [facility] 0.81 7:47 AM CDT HEALTH x10(9)/L [facility] Eosinophils 0.01 (L) 0.03 - 03/31/2018 [facility] 0.48 7:47 AM CDT HEALTH x10(9)/L [facility] Basophils 0.01 0.01 - 03/31/2018 [facility] 0.08 7:47 AM CDT HEALTH x10(9)/L [facility] Specimen Anatomical Collection Method Collection Time Receive d Time (Source) Location / / Volume Laterality Blood (Blood, 03/31/2018 7:29 AM 03/31/20 18 7:43 Venous) CDT AM CDT Gabriela Hernandez P.A.-C. LAB BLOOD ADD-ON Performing Organization Address City/State/ZIP Code Phon e Number [facility] [address] [place] [address] LAB DX Knee Left 2 Views (03/30/2018 [...] t otal knee prosthesis. Gabriela Hernandez P.A.-C. IMG DIAGNOSTIC IMAGING PROC EDURES documented in this encounter Visit Diagnoses Diagnosis Primary Osteoarthritis Knee Left - Prima ry Primary Osteoarthritis Knee Right Aftercare Total Knee Arthroplasty Primary Osteoarthritis Knee Left Hypertension Benign Renovascular Primary Osteoarthritis Knee Right Primary Osteoarthritis Knee Left documented in this encounter Admitting Diagnoses Diagnosis [...] Given 03/31/2018 8:10 AM CDT 81 mg EPINEPHrine 0.2 mg, ketorolac 30 mg, Given 03/30/2018 10:39 AM C DT Left Knee ropivacaine (PF) 300 mg in NaCl 0.9% injection periarticular, Once, On Thu03/30/18 at 0800, For 1 dose, Intra-Op, Drug Monitoring Program: Pharmacist to adjust medication order based on comorbities and indication. lisinopril tablet 5 mg (PRINIVIL,ZESTRIL ) Given 04/01/2018 8:03 AM CDT 5 mg 5 mg, oral, Daily, First dose on Thu03/31/18 at 0900, Hold for SBP <120mmHg Given 03/31/2018 8:10 AM CDT 5 mg vhxvvaecmptg-nite-RB-Ca-minerals 9 mg Given 04/01/2018 8:03 AM C DT 1 tablet iron-400 mcg tablet 1 tablet (THERAPEUTI C-M) 1 tablet, oral, Daily, First dose on Thu03/31/18 at 0900 Given 03/31/2018 8:10 AM CDT 1 tablet oxyCODONE IR tablet 10 mg (ROXICODONE) Given [...] Given 03/31/2018 6:14 AM CDT 40 mg povidone-iodine 15 mL in NaCl 0.9 % Given 03/30/2018 10:50 AM CD T 515 mL Left Knee 500 mL irrigation As needed, Starting on Thu03/30/18 at 1050, Intra-Op sennosides-docusate sodium 8.6-50 mg per Given 04/01/2018 8:03 A M CDT 1 tablet tablet 1 tablet (SENOKOT-S) 1 tablet, oral, 2 times daily, First dose on Thu03/30/18 at 2100, Do not give if patient has diarrhea. Given 03/31/2018 8:22 PM CDT 1 tablet Given 03/31/2018 8:16 AM CDT 1 tablet vancomycin injection Given 03/30/2018 10:52 AM CDT 1 g Left Knee As needed, Starting on Thu03/30/18 at 1052, Intra-Op documented in this encounter Active and Recently Administered Medications Times are shown in CDT. Scheduled Medication Order 03/30/2018 03/31/2018 04/01/2018 acetaminophen tablet 1,000 mg (TYLENOL) 1412 (Given - Provider: Marnie Yeung, R.N.)1808 (Given - Provider: Gi Schwab R.N.) 0003 (Given - Provider: Lora Taylor, R.N.)0614 (Given - Provider: Lora Taylor R.N.)1215 (Given - Provider: Meenakshi Lucero R.N.)1808 (Given - Provider: Portia Purvis R.N.) 0006 (Given - Provider: Mina tee R.NLa)0604 (Given - Provider: Mina Cardoza RLaN.)1159 (Given - Provider: Belen Elias R.NLa) 1,000 mg, oral, Every 6 hours scheduled, First dose on Thu at 1345 aspirin chewable tablet 81 mg 0810 (Give n - Provider: Meenakshi Lucero RLaN.)202 (Given - Provider: Portia Purvis RLaNLa) 0803 (Given - Provider: Belen Elias RLaNLa) 81 mg, oral, 2 times daily, First dose on Thu03/31/18 at 0900 ceFAZolin in dextrose (iso-os) IVPB 2 g (ANCEF) (COMPL ETED) 0930 (Given - Provider: Martínez Garcia APRN, GUN REPAIR CLERK) 2 g, intravenous, at 200 mL/hr, Administ er over 30 Minutes, Once, Thu03/30/18 at 0800, For 1 dose, Pre-Op, Preoperatively within 1 hour prior to surgical incision premix, Drug Monitoring Program: Pharma cist to adjust medication order based on comorbities and indication., Indications: Prophylaxis, Surgical ceFAZolin in dextrose (iso-os) IVPB 2 g (ANCEF) (COMPL ETED) 1412 (New Bag - Provider: Marnie Yeung RSuresh)2107 (New Bag - Provider: Gi Schwab R.N.) 2 g, intravenous, at 200 mL/hr, [...] - Provider: Fausto Hoffman D.O.) periarticular, Once, On Thu03/30/18 at 0 800, For 1 dose, Intra-Op, Drug Monitoring Program: Pharmacist to adjust medication order based on comorbities and indication. ketorolac injection 15 mg (TORADOL) (COMPLETED) 1412 ( Given - Provider: Marnie Yeung R.N.)1808 (Given - Provider: Gi Schwab R.N.) 0003 (Given - Provider: Lora Taylor R.N.)0614 (Given - Provider: Lora Taylor R.N.) 15 mg, intravenous, Every 6 hours schedu [...] (PRINIVIL,ZESTRIL) 0810 (Given - Provider: Meenakshi Lucero R.N.) 0803 (Given - Provider: Beverly Stephenson) 5 mg, oral, Daily, First dose on Thu03/31/18 at 0900, Hold for S BP <120mmHg adwfwpununjy-xcha-KJ-Ca-minerals 9 mg ir on-400 mcg tablet 1 tablet (THERAPEUTIC-M) 0810 (Given - Provider: Meenakshi Lucero R.N.) 0803 (Given - Provider: Belen Elias R.N.) 1 tablet, oral, Daily, First dose on Thu03/31/[address] tablet 40 mg (PROTONIX) 0614 (Given - Provider: Lora Taylor RLaN.) 0604 (Given - Provider: Mina tee RLaNLa) 40 mg, oral, Daily before breakfast, Fir st dose on Thu03/31/18 at 0700, Swallow whole. Do NOT crush, chew, or split tablet. sennosides-docusate sodium 8.6-50 mg per tablet 1 tabl et (SENOKOT-S) 2108 (Given - Provider: Gi Schwab R.N.) 08 (Given - Provider: Meenakshi Lucero R.N.)2021 (Given - Provider: Portia Purvis RLaN.) 0803 (Given - Provider: Belen Elias RLaNLa) 1 tablet, oral, 2 times daily, First dos e on Thu03/30/18 at 2100, Do not give if patient has diarrhea. tranexamic acid 1 g in NaCl 0.9% IVPB (COMPLETED) 0938 (New Bag - Provider: Martínez Garcia APRN, MAR YJO)1058 (Bolus - Provider: Martínez Garcia APRN, MARY [...] E ntry - Provider: Martínez Garcia APRN, MARY JO)0924 (New Bag - Provider: Martínez Garcia APRN, MARY JO)0943 (Canceled Entry - Provider: Martínez Garcia APRN, MARY JO)1015 (New Bag - Provider: Martínez Garcia APRN, MARY JO) 20 mL/hr, intravenous, at 20 mL/hr, Cont inuous, Starting Thu03/30/18 at 0730, Pre-Op 1136 (Anesthesia Volume Adjustment - Pro vider: Martínez Garcia APRN, MARY JO) NaCl 0.9% infusion (CANCELED) 1412 (New Bag - Provider: Scotty Dyson R.NLa) 75 mL/hr, intravenous, Continuous, Start ing [...] mg of calcium, oral, Every 2 hour [place] N, indigestion, Starting Thu03/30/18 at 1326, Doses [...] (See Alternative - Provider: Gi Schwab R.N.) 08 (See Alternative - Provider: Meenakshi Lucero R.N.)154 (See Alternative - Provider: Portia Purvis R.N.)2021 [...] 1 packet, oral, Daily PRN, constipation, Starting Thu03/30/18 at 1326, Ordered sequence of administration: polyethylene glycol, then bisacodyl until BM achieved. Avoid mixing with starch-based thickened liquids. povidone-iodine 15 mL in NaCl 0.9 % 500 mL irrigation (CANCELED) 1050 (Given - Provider: Fausto Hoffman D.O.) As needed, Starting on Thu03/30/18 at 1050, Intra-Op promethazine injection 6.25 mg (PHENERGAN) 6.25 mg, intravenous, Every 6 hours PRN, nausea, vomiting, Starting Thu03/30/18 at 1326, For 48 hours, RASS must be -2 or higher to administer. Reassess for nausea/vomiting after at least 10 minutes. If nausea or vomiting persists administer next ordered antiemetic medications (order for antiemetic medication administration ondansetron then droperidol then promethazine). vancomycin injection (CANCELED) 1052 (Given - Provider : Fausto Hoffman D.O. - Comment: PLACED IN WOUND.) As needed, Starting on Thu03/30/18 at 1052, Intra-Op Linked Groups Order Group [...] order.
documented in this encounter Care Teams Short Order Fry Cook Relationship Specialty Start Date End Date Chastity Davidson M.D. PCP - General 03/19/17 01/11/20 documented as of this encounter
--- OUTSIDE RECORDS SUMMARY | 2022-08-31 10:08 | XMS_ITS | Encounter Summary ---
:1945 Author Organization [facility] Address [address] [place] [address] Care Team Providers Name Role Phone Chastity Davidson M.D. 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 PCP - General 03/19/17 01/11/20 documented as of this encounter
--- OUTSIDE RECORDS SUMMARY | 2022-08-31 10:08 | XMS_ITS | Encounter Summary ---
:1945 Author Organization [facility] Address [address] [place] [address] Care Team Providers Name Role Phone Chastity Davidson M.D. Primary Care Provider Unavailable Reason for Visit Reason Comments Annual Exam Encounter Details Date Type Department Care Team Description 10/12/2017 Office Visit Department of Family Lety, General Medical Examination Adult (Primary Dx); Medicine in [place] Reflux Esophag eal; [facility] Hypertension Benign Renovasc ular; [address] Anemia Iron Deficiency; [place], [place] Screening [facility] [id number] Social History Tobacco Use Types Packs/Day Years Used Date Smoking Tobacco: Former Cigarettes 0.3 35 Smokeless Tobacco: Never Alcohol Use Standard Drinks/Week Comments Not Asked 3 (1 standard drink = 0.6 oz pure alcoho l) Sex Assigned at Date Recorded Female 10/12/2017 8:38 AM [place] documented as of this encounter Last Filed Vital Signs Vital Sign Reading Time Taken Comments Blood Pressure 90/70 10/12/2017 8:40 AM [place] Pulse 62 10/12/2017 8:40 AM [place] Temperature 36.6 ??C (97.9 ??F) 10/12/2017 8:40 AM [place] Respiratory Rate 14 10/12/2017 8:40 AM [place] Oxygen Saturation - - Inhaled Oxygen Concentration - - Weight 93.6 kg (206 lb 5.6 oz) 10/12/2017 8:40 AM [place] Height 157 cm (5' 1.81) 10/12/2017 8:40 AM [place] Body Mass Index 37.97 10/12/2017 8:40 AM [place] documented in this encounter Progress Notes Chastity Davidson M.D. - 10/12/2017 8:30 AM CST SUBJECTIVE CHIEF COMPLAINT / REASON FOR VISIT Mary Jane Rockwell is a 72 y.o. female who presents for evaluation of Annual Exam. HISTORY OF PRESENT ILLNESS Patient is a 72-year-old female here for wellness physical. She has some complaints of joint swelling and arthritis but she can't use NSAIDs due to her GI bleed. She has had some pretty severe pain in her knees and I asked if she wanted to have them replaced and she said she wants to wait until after she talks Gastroenterology. She has an appointment with them in early November and there is a possibility she is going a colonoscopy. She has some urgency with urination and even some incontinence if she does not go on time. She has already had her mammogram. She is trying to lose weight and she is watching what she eats especially carbohydrates. We discussed [id number] potassium because she takes a diuretic. Answers for HPI/ROS submitted by the patient on 10/12/2017 No general issues: Yes No eye issues: Yes No ENT issues: Yes No heart issues: Yes No respiratory issues: Yes Abdominal (belly) pain or cramping: Yes Vomiting: Yes Joint swelling: Yes No skin issues: Yes No neurologic issues: Yes Loud snoring: Yes No blood/lymph issues: Yes Incontinence (urine leakage): Yes The following portions of the patient's history were reviewed and updated as appropriate: allergies,current medications, family history, medical history, social history, surgical history and problem list. OBJECTIVE BP 90/70 (BP Location: Left arm, Patient Position: Sitting, Cuff Size: Large) Pulse 62 Temp 36.6 ??C (Temporal) Resp 14 Ht 157 cm Wt 93.6 kg BMI 37.97 kg/m?? PHYSICAL EXAM Constitutional: She is oriented to person, place, and time. She appears well- developed and well-nourished. HENT: Head: Normocephalic and atraumatic. Right Ear: External ear normal. Left Ear: External ear normal. Mouth/Throat: Oropharynx is clear and moist. TMS clear Neck: Normal range of motion. Neck supple. No thyromegaly present. Cardiovascular: Normal rate, regular rhythm and normal heart sounds. She exhibits no edema. Exam reveals no gallop and no friction rub. No murmur heard. Pulmonary/Chest: Effort normal and breasts normal. No respiratory distress. She has wheezes. She hasno rales. [address] base Abdominal: Soft. Bowel sounds are normal. She exhibits no distension and no mass. There is no tenderness. There is no rebound and no guarding. Genitourinary: Genitourinary Comments: deferred Musculoskeletal: Normal range of motion. She exhibits no tenderness. Lymphadenopathy: She has no cervical adenopathy. Neurological: She is alert and oriented to person, place, and time. She has normal reflexes. She exhibits normal muscle tone. Skin: Skin is warm and dry. Psychiatric: She has a normal mood and affect. Her behavior is normal. Judgment and thought content normal. ASSESSMENT / PLAN #1 General Medical Examination Adult We reviewed health maintenance and she has already had her mammogram. She will likely get colonoscopy when she talks a Gastroenterology. 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 She has had some anemia in the past and elevated MCV, so were going to check a vitamin B12 and folate. She is going to get her pneumococcal vaccine #2 Reflux Esophageal Refilled pantoprazole and she is following up with Gastroenterology. #3 Hypertension Benign Renovascular Will check a basic metabolic panel and refill her hydrochlorothiazide and lisinopril - BMP (Basic Metabolic Panel) #4 Anemia Iron Deficiency As mentioned were going to be checking vitamin B12 and folate due to her previous anemia, also checka CBC. - Vitamin B12 Assay - Folate - CBC with Differential #5 Screening Test Laboratory As mentioned above were going to test for hepatitis C. - HCV Ab Scrn w/Reflex to HCV PCR; Future Other orders - hydroCHLOROthiazide (for_HYDRODIURIL) 25 mg tablet; Take 1 tablet (25 mg total) by mouth daily., Starting Thu10/12/2017, Normal - lisinopril (for_PRINIVIL,ZESTRIL) 5 mg tablet; Take 1 tablet (5 mg total) by mouth daily., Starting Thu10/12/2017, Normal - pantoprazole (for_PROTONIX) 20 mg EC tablet; Take 1 tablet (20 mg total) by mouth daily., StartingMon 10/12/2017, Normal - PCV13: pneumococcal conjugate vaccine (6 weeks and older) Total time spent was 45 minutes with 40 minutes in counseling coordination of care. [place] documented in this encounter Plan of Treatment Not on filedocumented as of this encounter Procedures Procedure Name Priority Date/Time Associated Diagnosis Comme nts CBC WITH Routine 10/12/2017 9:32 AM Anemia Iron Results f or this DIFFERENTIAL, B [place] Deficiency procedure ar e in the results section. FOLATE, S Routine 10/12/2017 9:32 AM Anemia Iron Results f or this [place] Deficiency procedure are i n the results section. VITAMIN B12 ASSAY, Routine 10/12/2017 9:32 AM Anemia Iron Res ults for this S [place] Deficiency procedure are i n the results section. BASIC METABOLIC Routine 10/12/2017 9:32 AM Hypertension Benign Results for this PANEL, S/P [place] Renovascular procedure are i n the results section. documented in this encounter Results (ABNORMAL) CBC with Differential (10/12/2017 9:32 AM [place]) [facility] gist Method Time Signature Hemoglobin 12.1 11.6 - 10/12/2017 [facility] 15.0 g/dL 1:03 PM [facility] Hematocrit 37.6 35.5 - 10/12/2017 [facility] 44.9 % 1:03 PM [facility] Erythrocytes 3.91 (L) 3.92 - 10/12/2017 [facility] 5.13 1:03 PM [facility] [employer] x10(12)/L [facility]- [employer] [facility] MCV 96.2 78.2 - 10/12/2017 [facility] 97.9 fL 1:03 PM [place] [facility] RBC Distrib Width 13.1 12.2 - 10/12/2017 [facility] 16.1 % 1:03 PM [facility] Platelet Count 325 157 - 371 10/12/2017 [facility] x10(9)/L 1:03 PM [facility] Leukocytes 4.4 3.4 - 9.6 10/12/2017 [facility] x10(9)/L 1:03 PM [facility] Neutrophils 2.41 1.56 - 10/12/2017 [facility] 6.45 1:03 PM [facility] x[facility](9[facility]L [facility] Lymphocytes 1.26 0.95 - 10/12/2017 [facility] 3.07 1:03 PM [facility] x[facility](9[facility] Monocytes 0.50 0.26 - 10/12/2017 [facility] 0.81 1:03 PM [facility](9[facility] Eosinophils 0.22 0.03 - 10/12/2017 [facility] 0.48 1:03 PM [facility] x[facility](9[facility] Basophils 0.04 0.01 - 10/12/2017 [facility] 0.08 1:03 PM [facility](9[facility] Specimen Anatomical Collection Method Collection Time Receive d Time (Source) Location / / Volume Laterality Blood (Blood, 10/12/2017 9:32 AM 10/12/19 18 Venous) [place] 12:24 PM [place] Chastity Davidson M.D. LAB BLOOD ADD-ON Performing Organization Address City/[facility]/ZIP Code Phon e Number [facility]- [address] [place] [phone] [facility] Folate (10/12/2017 9:32 AM [place]) athologist Signature Folate, S 14.1 >=4.0 mcg/L 10/12/2017 [facility] 11:48 PM [place] [facility] Comment: Biotin has been identified by the lore diaz as a potential interfering substance. ??Higher concentr ations of biotin may be found in multivitamins, hair/nail supple ments, and workout supplements. ??If the result does not [facility] clinical observations, repeat testing after patient refrains fr om the use of supplements for at least 12 hours. Specimen Anatomical Collection Method Collection Time Receive d Time (Source) Location / / Volume Laterality Blood (Blood, 10/12/2017 9:32 AM 10/12/19 18 Venous) [place] 11:16 PM [place] Chastity Davidson M.D. LAB BLOOD ADD-ON Performing Organization Address City/[facility]/ZIP Code Phon e Number [facility]- [address] [address] LAB Vitamin B12 Assay (10/12/2017 9:32 AM [place]) athologist Signature Vitamin B12 475 200 - 1961 10/12/2017 [facility] Assay, S ng/L 11:48 PM [facility] Comment: Biotin has been identified by the lore diaz as a potential interfering substance. ??Higher concentr ations of biotin may be found in multivitamins, hair/nail supple ments, and workout supplements. ??If the result does not ma [facility] clinical observations, repeat testing after patient refrains fr om the use of supplements for at least 12 hours. Specimen Anatomical Collection Method Collection Time Receive d Time (Source) Location / / Volume Laterality Blood (Blood, 10/12/2017 9:32 AM 10/12/19 18 Venous) [place] 11:16 PM [place] Chastity Davidson M.D. LAB BLOOD ADD-ON Performing Organization Address City/State/ZIP Code Phon e Number [address] [phone] LAB (ABNORMAL) BMP (Basic Metabolic Panel) (10/12/2017 9:32 AM [place]) athologist Signature Potassium, S 3.9 3.6 - 5.2 10/12/2017 [facility] mmol/L 2:18 PM [facility] Sodium, S 141 135 - 145 10/12/2017 [facility] mmol/L 2:18 PM [facility] Chloride, S 99 98 - 107 10/12/2017 [facility] mmol/L 2:18 PM [facility] Bicarbonate, S 25 22 - 29 10/12/2017 [facility] mmol/L 2:18 PM [facility] [employer] [facility] [facility] Anion Gap 17 (H) 7 - 15 10/12/2017 [facility] 2:18 PM [facility] BUN (Blood Urea 30 (H) 6 - 21 10/12/2017 [facility] Nitrogen), S mg/dL 2:18 PM [facility] Creatinine 0.88 0.59 - 10/12/2017 [facility] 1.04 mg/dL 2:18 PM [facility] [employer] [facility] [facility] eGFR 66 >=60 10/12/2017 [facility] Non-Black/Afric mL/min/BSA 2:18 PM [facility] [employer] [facility] Comment: ----ADDITIONAL INFORMATION---- Estimated GFR calculated using the 2009 CKD_EPI creatinine equation. eGFR Black/ 76 >=60 mL/min/BSA 10/12/2017 2:18 PM [facility] [place] [facility] Comment: ----ADDITIONAL INFORMATION---- Estimated GFR calculated using the 2009 CKD_EPI creatinine equation. Calcium, Total, S 10.1 8.9 - 10.1 mg/dL 10/12/2017 2 :18 PM [place] [facility] Glucose, S 95 70 - 140 mg/dL 10/12/2017 2:18 PM [place] [facility] Specimen Anatomical Collection Method Collection Time Receive d Time (Source) Location / / Volume Laterality Blood (Blood, 10/12/2017 9:32 AM 10/12/19 18 Venous) [place] 12:23 PM [place] Chastity Davidson M.D. LAB BLOOD ADD-ON Performing Organization Address City/State/ZIP Code Phon e Number [facility]- [address] [place] [address], [place] [phone] [facility] documented in this encounter Visit Diagnoses Diagnosis General Medical Examination Adult - Prim magdi Reflux Esophageal Hypertension Benign Renovascular Anemia Iron Deficiency Screening Test Laboratory documented in this encounter Care Teams Wire Charger Relationship Specialty Start Date End Date Chastity Davidson M.D. PCP - General 03/19/17 01/11/20 documented as of this encounter
--- OUTSIDE RECORDS SUMMARY | 2022-08-31 10:08 | XMS_ITS | Encounter Summary ---
:1945 Author Organization [facility] Address [address] [place] [address] Care Team Providers Name Role Phone Chastity Davidson M.D. Primary Care Provider Unavailable Encounter Details Date Type Department Care Team Description 02/24/2018 Hospital Encounter Department of [facility] Bilateral Radiology in Chastity Albrecht M.D. 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 As needed CALCIUM CARBONATE/VITAMIN D3 Take by mouth 0 06/2010 (CALCIUM WITH VITAMIN D ORAL) daily. multivitamin capsule Take by mouth 0 11/13/2009 daily. hydroCHLOROthiazide Take 1 tablet 90 tablet 3 10/12/2017 (for_HYDRODIURIL) 25 mg (25 mg total) by tablet mouth daily. lisinopril Take 1 tablet (5 90 tablet 3 10/12/2017 11/16/19 19 (for_PRINIVIL,ZESTRIL) 5 mg mg total) by tablet mouth daily. pantoprazole (for_PROTONIX) Take 1 tablet 90 tablet 3 01/0812/06/2018 20 mg EC tablet (20 mg total) by mouth daily. potassium chloride (K-TAB) 20 Take 99 mEq by 0 03/31/2018 mEq CR tablet mouth daily. documented as of this encounter Progress Notes Chastity Davidson M.D. - 02/24/2018 1:46 PM CDT Patient not in for results today documented in this encounter Plan of Treatment Not on filedocumented as of this encounter Procedures Procedure Name Priority Date/Time Associated Comments Diagnosis DX KNEE BILATERAL RAD - Routine 02/24/2018 10:25 Pain Knee Resul ts for this 4+ VIEWS (most inpatients AM CDT Bilateral procedure a re in and all the results outpatients) section. documented in this encounter Results DX Knee Bilateral 4+ Views (02/24/2018 10:25 AM CDT) Anatomical Region Laterality Modality Lower Extremity, Knee, Musculoskeletal RST LOS Bilateral Computed Radiography Specimen (Source) Anatomical Collection Method Collection Time Re ceived Time Location / / Volume Laterality 02/24/2018 10:34 AM CDT Impressions 02/24/2018 10:37 AM CDT IMPRESSION: 1. Advanced tricompartmental degenerativ e osteoarthritis of the right knee with the worst involvement of the medial comp artment and mild genu varus. 2. Advanced degenerative osteoarthritis of the left knee involving the lateral compartment and patellofemoral joint wit h mild associated genu valgus. 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 No fracture or destructive lesion is identified. There is advanced degenerati ve osteoarthritis of involving both the medial and lateral compartments with valente rowing and subchondral sclerosis and degenerative spurring and there is also narrowing and degenerative spurring of the patellofemoral joint. There is mild genu varus on the upright view. On the left there is no significant knee joint effusion. No fracture or destructive lesion is identified. There is a advanced degenerative osteoarthritis of the lateral compartmen t which is markedly narrowed with subchondral sclerosis and spurring. Ther e is mild genu valgus on the upright view. Medial compartment is relatively p reserved. There is degenerative change of the patellofemoral joint. Procedure Note Pierre Marquez Jr., M.D. 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 No fracture or destructive lesion is identified. There is advanced degenerati ve osteoarthritis of involving both the medial and lateral compartments with valente rowing and subchondral sclerosis and degenerative spurring and there is also narrowing and degenerative spurring of the patellofemoral joint. There is mild genu varus on the upright view. On the left there is no significant knee joint effusion. No fracture or destructive lesion is identified. There is a advanced degenerative osteoarthritis of the lateral compartmen t which is markedly narrowed with subchondral sclerosis and spurring. Ther e is mild genu valgus on the upright view. Medial compartment is relatively p reserved. There is degenerative change of the patellofemoral joint. IMPRESSION: 1. Advanced tricompartmental degenerativ e osteoarthritis of the right knee with the worst involvement of the medial comp artment and mild genu varus. 2. Advanced degenerative osteoarthritis of the left knee involving the lateral compartment and patellofemoral joint wit h mild associated genu valgus. Chastity Davidson M.D. [facility] ARIANNE SANDERSON documented in this encounter Visit Diagnoses Diagnosis Pain Knee Bilateral documented in this encounter Care Teams Instrumentation Designer Relationship Specialty Start Date End Date Chastity Davidson M.D. PCP - General 03/19/17 01/11/20 documented as of this encounter
--- OUTSIDE RECORDS SUMMARY | 2022-08-31 10:08 | XMS_ITS | Encounter Summary ---
:1945 Author Organization [facility] Address [address] [place] [address] Care Team Providers Name Role Phone Chastity Davidson M.D. Primary Care Provider Unavailable Reason for Visit Auth/Cert Specialty Diagnoses / Procedures Referred By Contact Refer red To Contact Diagnoses Primary Osteoarthritis Knee Left Procedures MT ARTHRO KNEE CONDYLE&PLAT (TKA) ARTHROPLASTY REPLACEMENT TOTAL KNEE Referral ID Status Reason Start Date Expiration Date Visits Requ ested Visits Authorized [id number] 1 1 Encounter Details Date Type Department Care Team Description 03/30/2018 Anesthesia Event [facility] N[facility] OR Debora Betancourt M.D. [address] [place] [address] 1025 [facility] Escobar Cummings M.D. [facility] [place] [phone] [place] [phone] Anesthesia Record Procedure Summary Procedure Name Responsible Anesthesia Start Anesthesia Stop Anesthesiologist Time Time ARTHROPLASTY Debora Betancourt M.D. 03/30/18 0912 03/30/18 1 136 REPLACEMENT TOTAL KNEE (Left: Knee) Events Date Time Event Comment 03/30/2018 0742 0912 An Start Machine/Equipmen t Checked Infection Precautions Foll owed Procedure/Site Verified NPO Sta tus Verified Supine Standard ASA Mon itors Applied 0912 In Room 0926 Turnover to Proceduralist 0948 Proc Start 1128 Proc Fin 1130 Turnover to ANE Staff 1130 an stop data 1131 Out of Room 1136 An End I completed my h andoff to the receiving staff during [facility] we 1. Identified the patient 2. Ident ified the responsible provider 3. Revi ewed the pertinent medical history 4. Discu ssed the surgical course 5. Reviewed intra-o p anesthesia management and issues during an esthesia 6. Set expectations for post-procedure period 7. Allowed opportun ity for questions and acknowledgement of understanding. Name Total midazolam 1 mg/mL injection 2 mg propofol 10 mg/mL infusion 349.03 mg bupivacaine-EPINEPHrine PF 0.5%-1:200,000 injection 15 mL ceFAZolin in dextrose (iso-os) IVPB 2 g (ANCEF) 2 g bupivacaine-dextrose PF 0.75%-8.25% injection 1.6 mL lidocaine 2% (mg) injection 60 mg ketamine 10 mg/mL injection 20 mg tranexamic acid 1 g in NaCl 0.9% IVPB 2 g phenylephrine 100 mcg/mL injection 800 mcg dexamethasone 4 mg/mL injection 8 mg ondansetron PF 4 mg/2 mL injection 4 mg lactated ringers 1,400 mL Agents No agents on file. Blood No blood administrations on file. Lines, Drains, and Airways Type Details Placement Removal Peripheral IV Placement Date: 03/30/18; 03/30/18 0758 by 04/01 1419 by Placement Time: 0758; Quin Rand Born, Amber L, R.N. Catheter Size: 20 G; R.N. Orientation: Left; Location: Hand; Site Prep: Chlorhexidine (Preferred); Technique: Anatomical landmarks; Inserted by: Pavel Rand RN; Insertion Attempts: 1; Removal Date: 04/01/18; Removal Time: 1419; Removal Reason: Per protocol (RETIRED) Incision 03/30/18; 1004; Knee; 03/30/18 1004 by 0000 by Left; AMEYA MILLER Linell R, Johnson, Janice I., CAR.; 03/31/20; Resolved R.N. R.N. 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 - 03/30/2018 12:27 PM CDT Patient: Mary Jane Rockwell Procedure Summary Date: 03/30/18 Room / Location: [address] 02 [address] / [facility] OR Anesthesia Start: 911 Anesthesia Stop: 1135 Procedure: ARTHROPLASTY REPLACEMENT TOTAL KNEE (Left Knee) Diagnosis: Primary Osteoarthritis Knee Left (Primary Osteoarthritis Knee Left [M17.12]) Provider: Fausto Hoffman D.O. Responsible Provider: Debora Betancourt M.D. Anesthesia Type: regional ASA Status: 2 Anesthesia Type: regional Last vitals BP 99/64 (03/30/18 1220) Temp (!) 35.9 ??C (03/30/18 1155) Pulse 71 (03/30/18 1225) Resp 15 (03/30/18 1225) SpO2 97 % (03/30/18 1225) Anesthesia Post Evaluation 03/30/2018 12:27 PM Patient Disposition: general care unit Cardiovascular status: hemodynamics (HR & BP) acceptable Respiratory status: patent airway with spontaneous effort Temperature: normothermic Oxygen requirements: room air Level of consciousness: awake Pain score: pain adequately controlled and/or at baseline Post Op nausea/vomiting: none Hydration status: euvolemic Anesthesia Procedure Notes - Martínez Garcia, ZOFIA, ENVIRONMENTAL ADVISOR - 03/30/2018 9:37 AM CDTAssociated Order(s): ANESTHESIA REGIONAL BLOCK Regional Block Date/Time: 03/30/2018 9:27 AM Performed by: MARTÍNEZ GARCIA Authorized by: DEBORA BETANCOURT Location: OR [place] protocol: All relevant documentation and testing were [...] method: local infiltration Procedure details: Block type: primary anesthetic Neuraxial: spinal Positioning: sitting Approach: midline Level inserted: L3-4 Injection technique: single injection Needle type: rosa Gauge: 25G Length: 5 CSF: yes Pain with needle advancement or injection of local anesthetic: no Post-procedure details: Procedure completed successfully: successful procedure Other complications: none Anesthesia Procedure Notes - Debora Betancourt M.D. - 03/30/2018 8:18 AM CDT Associated Order(s): ANESTHESIA REGIONAL BLOCK Regional Block Date/Time: 03/30/2018 8:19 AM Performed by: DEBORA BETANCOURT Authorized by: DEBORA BETANCOURT Location: Pre Op / PACU [place] protocol: All relevant documentation and testing were [...] single injection Needle type: insulated Gauge: 20G Length: 10 Test dose: yes- negative test dose Incremental injection of local anesthetic with aspiration every:5cc Pain with needle advancement or injection of local anesthetic: no Post-procedure details: Procedure completed successfully: successful procedure Other complications: none Anesthesia Preprocedure Evaluation - Debora Betancourt M.D. - 03/30/2018 7:42 AM CDT Anesthesia Pre-Evaluation Pertinent components of the patient's history including current problem list, medical history, surgical history, family history, social history, medications and allergies were reviewed and updated as appropriate. The patient was examined and the Pre-op diagnosis, planned procedure, and H&P were reviewed and remain unchanged. PROBLEM LIST Relevant Problems HEME (+) Anemia OBJECTIVE PHYSICAL EXAMINATION Airway (HEENT) Mallampati: I TM Distance: >3 FB Neck ROM: Full Cardiovascular Rhythm: Regular Rate: Normal Cardiovascular Assessment: Normal Functional Capacity: >4 METS Pulmonary Pulmonary Assessment: Clear Neurological Normal Dental Normal General / Constitutional Normal ASSESSMENT / PLAN ANESTHESIA PLAN ASA: 2 Anesthesia Plan: regional Patient seen and allergies reviewed; anesthesia plan and risks discussed directly with patient / legal guardian, or through an informatics specialist; patient evaluated and approved for anesthesia / sedation. Use of blood products discussed with patient who consented to blood products. documented in this encounter Plan of Treatment Not on filedocumented as of this encounter Procedures Procedure Name Priority Date/Time Associated Comments Diagnosis ANESTHESIA REGIONAL Routine 03/30/2018 9:37 AM Re sults for this BLOCK CDT procedure are i n the results section. MC ANE NERVE BLOCK Routine 03/30/2018 8:18 AM Res ults for this WITH ULTRASOUND CDT procedure ar e in the results section. MT US GUIDE PLC NDL Routine 03/30/2018 8:18 AM Re sults for this CDT procedure are i n the results section. MT INJ ANES FEM Routine 03/30/2018 8:18 AM Result s for this NERVE CDT procedure are i n the results section. documented in this encounter Results Regional Block (03/30/2018 9:37 AM CDT) Narrative Martínez Garcia APRN, CRNA - 03/30/20 18 9:37 AM CDT Martínez Garcia APRN, CRNA ? 03/30/2018 ??9:38 AM Regional Block Date/Time: 03/30/2018 9:27 AM Performed by: MARTÍNEZ GARCIA Authorized by: DEBORA BETANCOURT Location: OR [place] protocol: All relevant documentation and testing w [...] method: local infiltration Procedure details: Block type: primary anesthetic ?? Neuraxial: spinal ?? Positioning: sitting ?? Approach: midline Level inserted: L3-4 Injection technique: single injection Needle type: rosa Gauge: 25G Length: 5 CSF: yes ?? Pain with needle advancement or injectio n of local anesthetic: no ?? Post-procedure details: Procedure completed successfully: succes sful procedure Other complications: none Procedure Note Martínez Garcia APRN, CRNA - 03/30/20 18 9:37 AM CDT Regional Block Date/Time: 03/30/2018 9:27 AM Performed by: MARTÍNEZ GARCIA Authorized by: DEBORA BETANCOURT Location: OR [place] protocol: All relevant documentation and testing w [...] method: local infiltration Procedure details: Block type: primary anesthetic Neuraxial: spinal Positioning: sitting Approach: midline Level inserted: L3-4 Injection technique: single injection Needle type: rosa Gauge: 25G Length: 5 CSF: yes Pain with needle advancement or injectio n of local anesthetic: no Post-procedure details: Procedure completed successfully: succes sful procedure Other complications: none Debora Betancourt M.D. PROCEDURE/MINOR SURGICAL ORD ERABLES MT INJ ANES FEM NERVE, MT US GUIDE PLC NDLCHARISMA ANE NERVE BLOCK WITH ULTRASOUND (03/30/2018 8:18 AM CDT) Narrative Debora Betancourt M.D. - 03/30/2018 8:18 AM CDT Debora Betancourt M.D. ? 03/30/2018 ??8:19 AM Regional Block Date/Time: 03/30/2018 8:19 AM Performed by: DEBORA BETANCOURT Authorized by: DEBORA BETANCOURT Location: Pre Op / PACU [place] protocol: All relevant documentation and testing w [...] single injection Needle type: insulated Gauge: 20G Length: 10 Test dose: yes- negative test dose ?? Incremental injection of local anestheti c with aspiration every:5cc Pain with needle advancement or injectio n of local anesthetic: no ?? Post-procedure details: Procedure completed successfully: succes sful procedure Other complications: none Procedure Note Debora Betancourt M.D. - 03/30/2018 8:18 AM CDT Regional Block Date/Time: 03/30/2018 8:19 AM Performed by: DEBORA BETANCOURT Authorized by: DEBORA BETANCOURT Location: Pre Op / PACU [place] protocol: All relevant documentation and testing w [...] single injection Needle type: insulated Gauge: 20G Length: 10 Test dose: yes- negative test dose Incremental injection of local anestheti c with aspiration every:5cc Pain with needle advancement or injectio n of local anesthetic: no Post-procedure details: Procedure completed successfully: succes sful procedure Other complications: none Debora Betancourt M.D. PROCEDURE/MINOR SURGICAL ORD ERABLES documented in this encounter Visit Diagnoses Not on filedocumented in this encounter Administered Medications Inactive Administered Medications - up to 3 most recent administrations Medication Order MAR Action Action Date Dose Rate Site vihxqntbift-qddwnnpr-yhnlf (PF) Given 03/30/2018 9:24 AM CDT 1.6 mL 0.75 % (7.5 mg/mL) injection (MARCAINE SPINAL) As needed, Starting on Thu03/30/18 at 0924, Anesthesia Intra-op bupivacaine-EPINEPHrine (PF) 0.5 %-1:200,000 Given 8 8:17 AM CDT 15 mL injection (MARCAINE w/EPI) As needed, Starting on Thu03/30/18 at 0817, Anesthesia Intra-op ceFAZolin in dextrose (iso-os) IVPB 2 g (ANCEF) Given 03/30/2018 9:30 AM CDT 2 g 2 g, intravenous, at 200 mL/hr, Administer over 30 Minutes, Once, On Thu03/30/18 at 0800, For 1 dose, Pre-Op, Preoperatively within 1 hour prior to surgical incision premix, Drug Monitoring Program: Pharmacist to adjust medication order based on comorbities and indication., Indications: Prophylaxis, surgical dexamethasone injection (DECADRON) Given 03/30/2018 10:11 AM CDT 8 mg As needed, Starting on Thu03/30/18 at 1011, Anesthesia Intra-op ketamine injection (KETALAR) Given 03/30/2018 10:18 AM CDT 5 mg As needed, Starting on Thu03/30/18 at 0940, Anesthesia Intra-op Given 03/30/2018 9:57 AM CDT 5 mg Given 03/30/2018 9:40 AM CDT 10 mg lactated ringers New Bag 03/30/2018 10:15 AM CDT 20 mL/hr, intravenous, Continuous, Starting on Thu03/30/18 at 0730, Pre-Op New Bag 03/30/2018 9:24 AM CDT lidocaine (PF) (cardiac) injection Given 03/30/2018 9:30 AM CDT 60 mg As needed, Starting on Thu03/30/18 at 0930, Anesthesia Intra-op midazolam (PF) injection (VERSED) Given 03/30/2018 9:26 AM CDT 1 mg intravenous, As needed, Starting on Thu03/30/18 at 0914, Anesthesia Intra-op Given 03/30/2018 9:14 AM CDT 1 mg ondansetron (PF) injection (ZOFRAN) Given 03/30/2018 10:59 AM CDT 4 mg As needed, nausea, vomiting, Starting on Thu03/30/18 at 1059, Anesthesia Intra-op phenylephrine injection Given 03/30/2018 11:15 AM CDT 100 mcg As needed, Starting on Thu03/30/18 at 0936, Anesthesia Intra-op Given 03/30/2018 10:49 AM CDT 200 mcg Given 03/30/2018 10:33 AM CDT 100 mcg propofol 10 mg/mL infusion Rate/Dose 03/30/2018 40 mcg/kg/min 20.8 m L/hr (DIPRIVAN) Change 10:26 AM CDT intravenous, Continuous Infusion: Per Instructions PRN, Starting on Thu03/30/18 at 0929, Anesthesia Intra-op Rate/Dose Change 03/30/2018 9:50 AM CDT 25 mcg/kg/min 12.98 mL/hr Rate/Dose Change 03/30/2018 9:37 AM CDT 35 mcg/kg/min 18.17 mL/hr tranexamic acid 1 g in NaCl 0.9% IVPB Bolus 03/30/2018 10:58 AM CDT 1 g 1 g, intravenous, at 150 mL/hr, Administer over 20 Minutes, Once, On Thu03/30/18 at 0800, For 1 dose, Intra-Op, Administer in OR upon induction Mini-Bag Plus bag, Drug Monitoring Program: Pharmacist to adjust medication order based on comorbities and indication. New Bag 03/30/2018 9:38 AM CDT 1 g documented in this encounter Care Teams Small Order Cutter Relationship Specialty Start Date End Date Chastity Davidson M.D. PCP - General 03/19/17 01/11/20 documented as of this encounter
--- OUTSIDE RECORDS SUMMARY | 2022-08-31 10:08 | XMS_ITS | Encounter Summary ---
:1945 Author Organization [facility] Address [address] [place] [address] Care Team Providers Name Role Phone Chastity Davidson M.D. 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 multivitamin capsule Take by mouth 0 11/13/2009 daily. albuterol sulfate 90 Inhale 2 puffs 0 06/13/2016 10/12/2017 mcg/actuation aerosol powdr every 4 (four) breath activated hours as needed. fexofenadine (for_ALLEGRA) Take 180 mg by 0 07/0910/12/2017 180 mg tablet mouth daily. hydroCHLOROthiazide Take 1 tablet 90 tablet 1 09/09/2017 (for_HYDRODIURIL) 25 mg (25 mg total) by tablet mouth daily. HYDROcodone-acetaminophen Take by mouth 0 016 10/12/2017 (NORCO) 5-325 mg per tablet every 6 (six) hours as needed. ibuprofen (for_ADVIL,MOTRIN) Take 1 tablet by 0 0 11/13/2009 10/12/2017 600 mg tablet mouth 3 (three) times a day as needed. lisinopril Take 1 tablet by 0 07/09/2016 09/30/20 17 (for_PRINIVIL,ZESTRIL) 5 mg mouth daily. tablet pantoprazole (for_PROTONIX) Take 1 tablet 90 tablet 3 09/0910/12/2017 20 mg EC tablet (20 mg total) by mouth daily. documented as of this encounter Plan of Treatment Not on filedocumented as of this encounter Procedures Procedure Name Priority Date/Time Associated Diagnosis Comme nts MORPHOLOGY Routine 09/21/2017 9:45 Results for this EVALUATION AM EDUCATIONAL PSYCHOLOGY PROFESSOR procedure are i n the results section. CBC WITH Routine 09/21/2017 9:45 Hemorrhage Results for this DIFFERENTIAL, B AM EDUCATIONAL PSYCHOLOGY PROFESSOR Gastrointestinal procedur e are in the results section. documented in this encounter Results Morphology Evaluation (09/21/2017 9:45 AM EDUCATIONAL PSYCHOLOGY PROFESSOR) Analysis Performed At Patho logist Time Signature RBC Morphology Normal 09/21/2017 [facility] 1:17 PM [facility] [place] [facility] PLT Morphology Normal 09/21/2017 [facility] 1:17 PM [facility] [facility] PLT Estimate Adequate Adequate 09/21/2017 [facility] 1:17 PM [facility] Specimen Anatomical Collection Method Collection Time Receive d Time (Source) Location / / Volume Laterality Blood 09/21/2017 9:45 AM 7 1:17 EDUCATIONAL PSYCHOLOGY PROFESSOR PM EDUCATIONAL PSYCHOLOGY PROFESSOR Chastity Davidson M.D. LAB BLOOD ADD-ON Performing Organization Address City/State/ZIP Code Phon e Number [facility] [address] [facility] [place] [phone] [place] [facility] (ABNORMAL) CBC with Differential (09/21/2017 9:45 AM EDUCATIONAL PSYCHOLOGY PROFESSOR) Patholo gist Method Time Signature Hemoglobin 11.9 11.6 - 09/21/2017 [facility] 15.0 g/dL 1:17 PM [facility] [facility] Hematocrit 37.4 35.5 - 09/21/2017 [facility] 44.9 % 1:17 PM [facility] [place] [facility] Erythrocytes 3.81 (L) 3.92 - 09/21/2017 [facility] 5.13 1:17 PM EDUCATIONAL PSYCHOLOGY PROFESSOR [facility]ALTH x10(12)/L [facility] [facility] MCV 98.2 (H) 78.2 - 09/21/2017 [facility] 97.9 fL 1:17 PM [facility] [place] [facility] RBC Distrib Width 12.9 12.2 - 09/21/2017 [facility] 16.1 % 1:17 PM [facility] [place] [facility] Platelet Count 315 157 - 371 09/21/2017 [facility] x10(9)/L 1:17 PM [facility] [facility] Leukocytes 4.9 3.4 - 9.6 09/21/2017 [facility] x10(9)/L 1:17 PM [facility] Neutrophils 2.19 1.56 - 09/21/2017 [facility] 6.45 1:17 PM EDUCATIONAL PSYCHOLOGY PROFESSOR HEALTH x10(9)/L SYSTEM- [place] [facility] Lymphocytes 1.98 0.95 - 09/21/2017 [facility] 3.07 1:17 PM EDUCATIONAL PSYCHOLOGY PROFESSOR HEALTH x10(9)/L SYSTEM- [place] [facility] Monocytes 0.48 0.26 - 09/21/2017 [facility] 0.81 1:17 PM EDUCATIONAL PSYCHOLOGY PROFESSOR HEALTH x10(9)/L SYSTEM- [place] [facility] Eosinophils 0.18 0.03 - 09/21/2017 [facility] 0.48 1:17 PM EDUCATIONAL PSYCHOLOGY PROFESSOR HEALTH x10(9)/L SYSTEM- [place] [facility] Basophils 0.03 0.01 - 09/21/2017 [facility] 0.08 1:17 PM EDUCATIONAL PSYCHOLOGY PROFESSOR HEALTH x10(9)/L SYSTEM- [place] [facility] Specimen Anatomical Collection Method Collection Time Receive d Time (Source) Location / / Volume Laterality Blood (Blood, 09/21/2017 9:45 AM 09/21/20 17 1:17 Venous) EDUCATIONAL PSYCHOLOGY PROFESSOR PM EDUCATIONAL PSYCHOLOGY PROFESSOR Chastity Davidson M.D. LAB BLOOD ADD-ON Performing Organization Address City/State/ZIP Code Phon e Number [facility] [address] [facility] [place] [phone] [facility] documented in this encounter Visit Diagnoses Diagnosis Hemorrhage Gastrointestinal documented in this encounter Care Teams Chief Diversity Officer Relationship Specialty Start Date End Date Chastity Davidson M.D. PCP - General 03/19/17 01/11/20 documented as of this encounter
--- OUTSIDE RECORDS SUMMARY | 2022-08-31 10:08 | XMS_ITS | Encounter Summary ---
:1945 Author Organization [facility] Address [address] [place] [address] Care Team Providers Name Role Phone Chastity Davidson M.D. Primary Care Provider Unavailable Encounter Details Date Type Department Care Team Description 11/25/2017 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 PCP - General 03/19/17 01/11/20 documented as of this encounter
--- OUTSIDE RECORDS SUMMARY | 2022-08-31 10:08 | XMS_ITS | Encounter Summary ---
:1945 Author Organization [facility] Address [address] [place] [address] Care Team Providers Name Role Phone Chastity Davidson M.D. 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 Plan of Treatment Not on filedocumented as of this encounter Results (ABNORMAL) CBC with Differential (09/21/2017 9:45 AM WATERSHED TENDER) [facility] Method Time Signature Hemoglobin 11.9 11.6 - 09/21/2017 [facility] 15.0 g/dL 1:17 PM WATERSHED TENDER [facility] [place] [facility] Hematocrit 37.4 35.5 - 09/21/2017 [facility] 44.9 % 1:17 PM WATERSHED TENDER [place] [facility] [facility] Erythrocytes 3.81 (L) 3.92 - 09/21/2017 [facility] 5.13 1:17 PM WATERSHED TENDER [facility] x10(12)/L [facility]- [place] [facility] MCV 98.2 (H) 78.2 - 09/21/2017 [facility] 97.9 fL 1:17 PM [facility] [place] [facility] RBC Distrib Width 12.9 12.2 - 09/21/2017 [facility] 16.1 % 1:17 PM [facility] [place] [facility] Platelet Count 315 157 - 371 09/21/2017 [facility] x10(9)/L 1:17 PM [facility] [facility] Leukocytes 4.9 3.4 - 9.6 09/21/2017 [facility] x10(9)/L 1:17 PM [facility] [place] [facility] Neutrophils 2.19 1.56 - 09/21/2017 [facility] 6.45 1:17 PM WATERSHED TENDER HEALTH x10(9)/L SYSTEM- [place] [facility] Lymphocytes 1.98 0.95 - 09/21/2017 [facility] 3.07 1:17 PM WATERSHED TENDER HEALTH x10(9)/L SYSTEM- [place] [facility] Monocytes 0.48 0.26 - 09/21/2017 [facility] 0.81 1:17 PM WATERSHED TENDER HEALTH x10(9)/L SYSTEM- [place] [facility] Eosinophils 0.18 0.03 - 09/21/2017 [facility] 0.48 1:17 PM WATERSHED TENDER HEALTH x10(9)/L SYSTEM- [place] [facility] Basophils 0.03 0.01 - 09/21/2017 [facility] 0.08 1:17 PM WATERSHED TENDER HEALTH x10(9)/L SYSTEM- [place] [facility] Specimen Anatomical Collection Method Collection Time Receive d Time (Source) Location / / Volume Laterality Blood (Blood, 09/21/2017 9:45 AM 09/21/20 17 1:17 Venous) WATERSHED TENDER PM WATERSHED TENDER Chastity Davidson M.D. LAB BLOOD ADD-ON Performing Organization Address City/State/ZIP Code Phon e Number [facility]- [address] [place] [phone] [facility] documented in this encounter Visit Diagnoses Diagnosis Hemorrhage Gastrointestinal - Primary documented in this encounter Care Teams Control Room Supervisor Relationship Specialty Start Date End Date Chastity Davidson M.D. PCP - General 03/19/17 01/11/20 documented as of this encounter
--- OUTSIDE RECORDS SUMMARY | 2022-08-31 10:08 | XMS_ITS | Encounter Summary ---
:1945 Author Organization [facility] Address [address] [place] [address] Care Team Providers Name Role Phone Chastity Davidson M.D. 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 documented in this encounter Results GASTROENTEROLOGY IMAGE EXAM (02/01/2018 9:55 AM CDT) Specimen (Source) Anatomical Collection Method Collection Time Re ceived Time Location / / Volume Laterality 02/01/2018 9:55 AM CDT Narrative [facility] - 02/01/2018 11:05 AM CDT This order has been created [...] on filedocumented in this encounter Care Teams Ham Passer Relationship Specialty Start Date End Date Chastity Davidson M.D. PCP - General 03/19/17 01/11/20 documented as of this encounter
--- OUTSIDE RECORDS SUMMARY | 2022-08-31 10:08 | XMS_ITS | Encounter Summary ---
:1945 Author Organization [facility] Address [address] [place] [address] Care Team Providers Name Role Phone Chastity Davidson M.D. Primary Care Provider Unavailable Encounter Details Date Type Department Care Team Description 09/21/2017 Orders Only Department of Family Brenda Leal Screening Mammogram Medicine in [address] [facility] Average Risk Patient [facility] melanie [place], [place] (Primary Dx) [address] 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 RECOMMENDATION: ??Annual Screening Mammo gram ASSESSMENT: ??BI-RADS: 2: Benign. Narrative 10/01/2017 12:05 PM [place] MACHINE OPERATOR EXAM: ??BI BREAST SCREENING BILATERAL Current study was evaluated with a Compu ter Aided Detection (CAD) system. INDICATION: ??Screening mammogram. COMPARISON: ??Prior exams were available for comparison. DENSITY: ??c. The breast(s) are heteroge neously dense, which may obscure small masses. FINDINGS: ??There are stable scattered b enign-appearing calcifications bilaterally. No mammographic findings of malignancy. Procedure Note Pierre Marquez Jr., M.D. - 2016 EXAM: BI BREAST SCREENING BILATERAL Current study was evaluated with a Compu ter Aided Detection (CAD) system. INDICATION: Screening mammogram. COMPARISON: Prior exams were available f or comparison. DENSITY: c. The breast(s) are heterogene ously dense, which may obscure small masses. FINDINGS: There are stable scattered adam ign-appearing calcifications bilaterally. No mammographic findings of malignancy. IMPRESSION: Benign. RECOMMENDATION: Annual Screening Mammogr am ASSESSMENT: BI-RADS: 2: Benign. Chastity Davidson M.D. IMG BI PROCEDURES documented in this encounter Visit Diagnoses Diagnosis Screening Mammogram Average Risk Patient - Primary Screening Mammogram Average Risk Patient documented in this encounter Care Teams Devulcanizer Tender Relationship Specialty Start Date End Date Chastity Davidson M.D. PCP - General 03/19/17 01/11/20 documented as of this encounter
--- OUTSIDE RECORDS SUMMARY | 2022-08-31 10:08 | XMS_ITS | Encounter Summary ---
:1945 Author Organization [facility] Address [address] [place] [address] Care Team Providers Name Role Phone Chastity Davidson M.D. Primary Care Provider Unavailable Reason for Visit Reason Comments Med Refill Encounter Details Date Type Department Care Team Description 01/08/2018 Refill Department of Gastroenterology in [facility] Refill [place], [place] ZOFIA Syed, C.N.P., [address] [facility] 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 - 01/08/2018 9:58 AM CDT Spoke with [facility] as this prescription was just renewed back in 2017. She states that pt has only been taking this as one tab daily as insurance won't cover the medication. They are requesting a new prescription to reflect this updated dosing. If you agree with this dosing, pleaseapprove rx. Thanks. documented in this encounter Plan of Treatment Not on filedocumented as of this encounter Visit Diagnoses Not on filedocumented in this encounter Care Teams Medical Technologist Prn Relationship Specialty Start Date End Date Chastity Davidson M.D. PCP - General 03/19/17 01/11/20 documented as of this encounter
--- OUTSIDE RECORDS SUMMARY | 2022-08-31 10:08 | XMS_ITS | Encounter Summary ---
:1945 Author Organization [facility] Address [address] [place] [address] Care Team Providers Name Role Phone Chastity Davidson M.D. Primary Care Provider Unavailable Encounter Details Date Type Department Care Team Description 10/01/2017 Hospital Encounter Department of [facility] Mammogram Radiology in Chastity Albrecht M.D. 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 lisinopril Take 1 tablet (5 90 tablet 1 09/30/2017 10/12/19 18 (for_PRINIVIL,ZESTRIL) 5 mg mg total) by tablet mouth daily. pantoprazole (for_PROTONIX) Take 1 tablet 90 tablet 3 09/0910/12/2017 20 mg EC tablet (20 mg total) by mouth daily. documented as of this encounter Plan of Treatment Not on filedocumented as of this encounter Procedures Procedure Name Priority Date/Time Associated Comments Diagnosis BI BREAST RAD - Routine 10/01/2017 11:01 Screening Results fo r this SCREENING (most inpatients AM FIREWORKS DISPLAY SPECIALIST Mammogram Average proced ure are in BILATERAL and all Risk Patient the results outpatients) section. documented in this encounter Results BI Breast Screening Bilateral (10/01/2017 11:01 AM FIREWORKS DISPLAY SPECIALIST) Anatomical Region Laterality Modality Breast Bilateral Mammography Specimen (Source) Anatomical Collection Method Collection Time Re ceived Time Location / / Volume Laterality 10/01/2017 12:03 PM FIREWORKS DISPLAY SPECIALIST Impressions 10/01/2017 12:05 PM FIREWORKS DISPLAY SPECIALIST IMPRESSION: ??Benign. RECOMMENDATION: ??Annual Screening Mammo gram ASSESSMENT: ??BI-RADS: 2: Benign. Narrative 10/01/2017 12:05 PM FIREWORKS DISPLAY SPECIALIST EXAM: ??BI BREAST SCREENING BILATERAL Current study [...] Patient documented in this encounter Care Teams Social Psychologist Relationship Specialty Start Date End Date Chastity Davidson M.D. PCP - General 03/19/17 01/11/20 documented as of this encounter
--- OUTSIDE RECORDS SUMMARY | 2022-08-31 10:08 | XMS_ITS | Encounter Summary ---
:1945 Author Organization [facility] Address [address] [place] [address] Care Team Providers Name Role Phone Chastity Davidson M.D. Primary Care Provider Unavailable Reason for Visit Auth/Cert Specialty Diagnoses / Procedures Referred By Contact Refer red To Contact Diagnoses Anemia Hemorrhage Gastrointestinal Screening Cancer Colon Procedures AK COLONOSCOPY W TMR ABLATE AK EGD TRANSORAL DX ESOPHAGOGASTRODUODENOSCOPY COLONOSCOPY Referral ID Status Reason Start Date Expiration Date Visits Requ ested Visits Authorized [id number] 1 1 Encounter Details Date Type Department Care Team Description 02/01/2018 Hospital Encounter Department of Jazmyne Weaver, Gastroenterology in [place] [address] [address] Social History Tobacco Use Types Packs/Day Years Used Date Smoking Tobacco: Former Cigarettes 0.3 35 Smokeless Tobacco: Never Alcohol Use Standard Drinks/Week Comments Yes 3 (1 standard drink = 0.6 oz pure alcoho l) none since Oct Sex Assigned at Date Recorded 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 multivitamin capsule Take by mouth 0 11/13/2009 daily. acetaminophen (for_TYLENOL 8 Take 1,300 mg by 0 HR) 650 mg ER tablet mouth 2 (two) times a day. As needed hydroCHLOROthiazide Take 1 tablet 90 tablet 3 [...] mouth daily. documented as of this encounter H&P Notes Jazmyne Weaver M.D. - 02/01/2018 10:08 AM CDT ASSESSMENT / PLAN Patient Name: Mary Jane Rockwell Department : DEPARTMENT OF GASTROENTEROLOGY IN [place], [place] SUBJECTIVE Past Medical History: Diagnosis Date ??? Arthritis Inflammatory (HCC) ??? Cancer Colon Family History ??? Gastroesophageal Reflux Disease NOS ??? Hemorrhage Gastrointestinal ??? Hypertension NOS Past Surgical History: Procedure Laterality Date ??? TONSILLECTOMY AND ADENOIDECTOMY N/A 1950 Tonsillectomy and adenoidectomy OB History No data available Social History Social History ??? Marital status: Spouse name: N/A ??? Number of children: N/A ??? Years of education: N/A Social History Main Topics ??? Smoking status: Former Smoker Packs/day: 0.25 Years: 35.00 Types: Cigarettes ??? Smokeless tobacco: Never Used ??? Alcohol use 1.8 oz/week 3 Glasses of wine per week Comment: none since Oct ??? Drug use: No ??? Sexual activity: Yes Partners: Male control/ protection: Post-menopausal Other Topics Concern ??? None Social History Narrative ??? 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 yes Review of systems: pertinent ROS negative Mallampati: II - soft palate, uvula, fauces visible Heart: normal Lung: normal ASA physical exam: class 3 - patient with severe systemic disease Sedation plan: moderate sedation Patient seen, evaluated and approved for sedation Baseline Behavior: Abdominal Exam: Gastrointestinal (WDL): Within Defined Limits Abdomen Inspection: Soft, Flat Dental Information: documented in this encounter Procedure Notes Jazmyne Weaver M.D. - 02/01/2018 9:56 AM CDTAssociated Order(s): UPPER GI ENDOSCOPY Final Diagnosis A. Stomach, polypectomies: Fragments of fundic gland polyps (8). B. Esophagus, 32 cm, biopsies: Columnar-type mucosa with intestinal metaplasia, consistent with specialized Mendez-type mucosa. Negative for dysplasia. No squamous esophageal mucosa present for histologic evaluation. C. Esophagus, 30 cm, biopsies: Columnar-type gastric mucosa with intestinal metaplasia, consistent with specialized Mendez-type mucosa. Negative for dysplasia. Associated squamous esophageal mucosa with no diagnostic abnormalities. D. Esophagus, 28 cm, biopsies: Columnar-type gastric mucosa with intestinal metaplasia, consistent with specialized Mendez-type mucosa. Negative for dysplasia. Associated squamous esophageal mucosa with histologically mild reflux esophagitis. E. Colon, sigmoid, polypectomy: Tubular adenoma; negative for high grade dysplasia. 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 Biopsied. - Multiple gastric polyps. Biopsied. - 2 cm hiatal hernia. - No gross lesions in the entire examined duodenum. Recommendation: - Await pathology results. - Repeat upper endoscopy in 2 years for surveillance. Findings: There were esophageal mucosal changes suggestive of long-segment Mendez's esophagus present in the lower third of the esophagus. The maximum longitudinal extent of these mucosal changes was 5 cm in length (from 28 to 33cm). Mucosa was biopsied with a cold forceps for histology in 4 quadrants at intervals of 2 cm in the lower third of the esophagus. A total of 3 specimen bottles were sent to pathology. Multiple 10 mm pedunculated and sessile polyps with no bleeding and no stigmata of recent bleeding were found in the gastric body. Biopsies were taken with a cold forceps for histology. Estimated blood loss was minimal. A 2 cm hiatal hernia was present. No gross lesions were noted in the entire examined duodenum. Medicines: Midazolam 6 mg IV, Fentanyl 100 micrograms IV Complications: No immediate complications. Estimated blood loss: Minimal. Procedure Details: The patient was seen, evaluated, and history reviewed. Airway and heart and lung exams were performed and were satisfactory for planned sedation care. The risks, benefits and alternatives for the procedure and sedation were discussed and informed consent was obtained. A procedural pause was conducted in the presence of assisting personnel to verify the correct patient identity and procedure to be performed. Throughout the procedure, the patient's blood pressure, pulse, and oxygen saturations were monitored continuously. The Endoscope was introduced under direct vision through the mouth, and advanced to the second part of duodenum. The upper GI endoscopy was accomplished without difficulty. The patient tolerated the procedure well. Sedation: Moderate (conscious) sedation was administered by the endoscopy nurse and supervised by the endoscopist. The following parameters were monitored: oxygen saturation, heart rate, blood pressure, and response to care. Total physician intraservice time was 10 minutes. Jazmyne Weaver MD 02/01/2018 10:52:07 AM This report has been signed electronically. Number of Addenda: 0 Note Initiated On: 02/01/2018 9:56 AM Jazmyne Weaver M.D. - 02/01/2018 9:55 AM CDTAssociated Order(s): COLONOSCOPY Final Diagnosis A. Stomach, polypectomies: Fragments of fundic gland polyps (8). B. Esophagus, 32 cm, biopsies: Columnar-type mucosa with intestinal metaplasia, consistent with specialized Mendez-type mucosa. Negative for dysplasia. No squamous esophageal mucosa present for histologic evaluation. C. Esophagus, 30 cm, biopsies: Columnar-type gastric mucosa with intestinal metaplasia, consistent with specialized Mendez-type mucosa. Negative for dysplasia. Associated squamous esophageal mucosa with no diagnostic abnormalities. D. Esophagus, 28 cm, biopsies: Columnar-type gastric mucosa with intestinal metaplasia, consistent with specialized Mendez-type mucosa. Negative for dysplasia. Associated squamous esophageal mucosa with histologically mild reflux esophagitis. E. Colon, sigmoid, polypectomy: Tubular adenoma; negative for high grade dysplasia. [facility] Patient Name: Mary Jane Rockwell Procedure Date: 02/01/2018 9:55 AM Date of : 1945 Age: 72 Gender: Female Procedure: Colonoscopy Providers: Jazmyne Weaver MD, Kerry Armas NP (Ordering Provider) Referring Provider: Kerry Armas NP Pre-op Diagnoses: Screening for colorectal malignant neoplasm Post-op Diagnoses: - Diverticulosis in the sigmoid colon, in the descending colon and in the transverse colon. - One 3 mm polyp in the sigmoid colon, removed with a cold snare. Resected and retrieved. - Non-bleeding internal hemorrhoids. Recommendation: - Repeat colonoscopy in 5 years for surveillance. Findings: The digital rectal exam was normal. Pertinent negatives include normal sphincter tone. Multiple large-mouthed diverticula were found in the sigmoid colon, descending colon and transverse colon. A 3 mm polyp was found in the sigmoid colon. The polyp was flat. The polyp was removed with a cold snare. Resection and retrieval were complete. Estimated blood loss was minimal. Non-bleeding internal hemorrhoids were found during retroflexion. The hemorrhoids were small. Medicines: Fentanyl 50 micrograms IV Complications: No immediate complications. Estimated blood loss: Minimal. Procedure Details: The patient was seen, evaluated, and history reviewed. Airway and heart and lung exams were performed and were satisfactory for planned sedation care. The risks, benefits and alternatives for the procedure and sedation were discussed and informed consent was obtained. A procedural pause was conducted in the presence of assisting personnel to verify the correct patient identity and procedure to be performed. Throughout the procedure, the patient's blood pressure, pulse, and oxygen saturations were monitored continuously. The Colonoscope was introduced under direct vision through the anus and advanced to 2 cm into the ileum. The colonoscopy was performed without difficulty. The patient tolerated the procedure well. The quality of the bowel preparation was good. Sedation: Moderate (conscious) sedation was administered by the endoscopy nurse and supervised by the endoscopist. The following parameters were monitored: oxygen saturation, heart rate, blood pressure, and response to care. Total physician intraservice time was 25 minutes. Jazmyne Weaver MD 02/01/2018 10:54:41 AM This report has been signed electronically. Number of Addenda: 0 Note Initiated On: 02/01/2018 9:55 AM Scope Withdrawal Time 0 hours 14 minutes 2 seconds documented in this encounter Plan of Treatment Not on filedocumented as of this encounter Procedures Procedure Name Priority Date/Time Associated Comments Diagnosis SURGICAL PATHOLOGY Routine 02/01/2018 10:13 Resul ts for this AM CDT procedure are i n the results section. UPPER GI ENDOSCOPY 02/01/2018 9:56 Result s for this AM CDT procedure are i n the results section. COLONOSCOPY 02/01/2018 9:55 Results for this AM CDT procedure are i n the results section. COLONOSCOPY 02/01/2018 9:53 Anemia AM CDT Hemorrhage Gastrointestinal Screening Cancer Colon ESOPHAGOGASTRODUODENOSCOPY 02/01/2018 9:53 Anemi a AM CDT Hemorrhage Gastrointestinal Screening Cancer Colon documented in this encounter Results Surgical Pathology (02/01/2018 10:13 AM CDT) Component Value Ref Test Analysis Performed Pathologis t Range Method Time At Signature Report Lora Boogie, 02/02/2018 [facility] electronically 12:10 PM [facility]ALTH [facility] 02/[facility]2018 [facility] 12:10 PM HEALTH CDT SYSTEM- [facility] Specimen Received A. Stomach biopsy, polyp 018 [facility] B. Esophagus biopsy, 32cm, r/o Mendez's 12:10 PM HEALTH C. Esophagus biopsy, 30cm, r/o Mendez's CDT SYSTEM- D. Esophagus biopsy, 28cm, r/o Mendez's [facility] E. Colon biopsy, sigmoid polyp Clinical History Anemia 02/02/2018 [facility] Gastrointestinal hemorrhage 12:10 PM HE ALTH Colon cancer screening CDT SYSTEM- [facility] Gross Description A: ??Stomach. ??Consists of mucosal fragments to a 1 cm 02/02/2018 [facility] diameter. ??ESB, A. 12:10 PM HEALTH B: ??Esophagus 32 cm. ??Consists of mucosal fragments to a 2 CDT SYSTEM- millimeter diameter. ??ESB, B. [facility] C: ??Esophagus 30 cm. ??Consists of mucosal fragments to a 2 millimeter diameter. ??ESB, C. D: ??Esophagus 28 cm. ??Consists of mucosal fragments to a 2 millimeter diameter. ??ESB, D. E: ??Colon. ??Consists of mucosal fragments to a 3 millimete r diameter. ??ESB, E. ?? DDGpp Interpretation A. Stomach, polypectomies: Fragments of fundic gland polyps 02/02/2018 [facility] (8). 12:10 PM HEALTH B. Esophagus, 32 cm, biopsies: Columnar-type mucosa with CDT SYSTEM- intestinal metaplasia, consistent with specialized [facility] Mendez-type mucosa. Negative for dysplasia. No squamous esophageal mucosa present for histologic evaluation. C. Esophagus, 30 cm, biopsies: Columnar-type gastric mucosa with intestinal metaplasia, consistent with specialized Mendez-type mucosa. Negative for dysplasia. Associated squamous esophageal mucosa with no diagnostic abnormalities. D. Esophagus, 28 cm, biopsies: Columnar-type gastric mucosa with intestinal metaplasia, consistent with specialized Mendez-type mucosa. Negative for dysplasia. Associated squamous esophageal mucosa with histologically mild reflux esophagitis. E. Colon, sigmoid, polypectomy: Tubular adenoma; negative for high grade dysplasia. Specimen (Source) Anatomical Collection Method Collection Time Re ceived Time Location / / Volume Laterality Biopsy (Stomach) 02/01/2018 10:13 AM CDT Comment: Gastric polyps Biopsy (Esophagus) 02/01/2018 10:18 AM CD T Biopsy (Esophagus) 02/01/2018 10:19 AM CD T Biopsy (Esophagus) 02/01/2018 10:21 AM CD T Polyp (Colon) 02/01/2018 10:39 AM CDT Narrative This result has an attachment that is no t available. Jazmyne Weaver M.D. LAB SURG PATH ORDERABLES Performing Organization Address City/State/ZIP Code Phon e Number [facility] [address] [place] [address] LAB UPPER GI ENDOSCOPY (02/01/2018 9:56 AM CDT) Specimen (Source) Anatomical Location Collection Method / Collectio n Time Received Time / Laterality Volume Narrative This result has an attachment that is no t available. Procedure Note Jazmyne Weaver M.D. - 02/01/2018 9:56 AM CDT Final Diagnosis A. Stomach, polypectomie s: Fragments of fundic gland polyps (8). B. Esophagus, 32 cm, biopsies: Columnar- type mucosa with intestinal metaplasia, consistent with s pecialized Mendez-type mucosa. Negative for dyspla zheng. No squamous esophageal mucosa present for histologic evaluation. C. Esophagus, 30 cm, biopsies: Columnar- type gastric mucosa with intestinal metaplasia, consistent w ith specialized Mendez-type mucosa. Negative for dyspla zheng. Associated squamous esophageal mucosa with no diagn ostic abnormalities. D. Esophagus, 28 cm, biopsies: Columnar- type gastric mucosa with intestinal metaplasia, consistent w ith specialized Mendez-type mucosa. Negative for dyspla zheng. Associated squamous esophageal mucosa with histolog ically mild reflux esophagitis. E. Colon, sigmoid, polypectomy: Tubular adenoma; negative for high grade dysplasia. 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 Biopsied. - Multiple gastric polyps. Biopsied. - 2 cm hiatal hernia. - No gross lesions in the entire examin ed duodenum. Recommendation: - Await pathology results. - Repeat upper endoscopy in 2 years for surveillance. Findings: There were esophageal mucosal changes s uggestive of long-segment Mendez's esophagus present in the lowe r third of the esophagus. The maximum longitudinal extent of these mu cosal changes was 5 cm in length (from 28 to 33cm). Mucosa was biopsied with a cold forceps for histology in 4 quadrants at intervals of 2 cm in the lower third of the esophagus. A total of 3 specimen bottles were sent to pathology. Multiple 10 mm pedunculated and sessile polyps with no bleeding and no stigmata of recent bleeding were found in the gastric body. Biopsies were taken with a cold forceps for hist ology. Estimated blood loss was minimal. A 2 cm hiatal hernia was present. No gross lesions were noted in the enti re examined duodenum. Medicines: Midazolam 6 mg IV, Fentanyl 100 microgr ams IV Complications: No immediate complication s. Estimated blood loss: Minimal. Procedure Details: The patient was seen, evaluated, and history reviewed. Airway and heart and lung exa ms were performed and were satisfactory for alexandre nned sedation care. The risks, benefits and alternatives fo r the procedure and sedation were discussed a nd informed consent was obtained. A procedural paus e was conducted in the presence of assisting personnel to verify the correct patient identity and procedure to be performed. Throughout the procedure, the patient's blood pressure, pulse, and ox ygen saturations were monitored continuously . The Endoscope was introduced under dire ct vision through the mouth, and advanced to the second part of duodenum. The upper GI endoscopy was accomplished without difficulty. The patient tolerat ed the procedure well. Sedation: Moderate (conscious) sedation was admin istered by the endoscopy nurse and supervised by the endoscopist. The following parameters were monitored: oxygen saturation, heart rat e, blood pressure, and response to care. Total physician intraservice t trey was 10 minutes. Jazmyne Weaver MD 02/01/2018 10:52:07 AM This report has been signed electronical ly. Number of Addenda: 0 Note Initiated On: 02/01/2018 9:56 AM Jazmyne Weaver M.D. GI PROCEDURE ORDERABLES COLONOSCOPY (02/01/2018 9:55 AM CDT) Specimen (Source) Anatomical Location Collection Method / Collectio n Time Received Time / Laterality Volume Narrative This result has an attachment that is no t available. Procedure Note Jazmyne Weaver M.D. - 02/01/2018 9:55 AM CDT Final Diagnosis A. Stomach, polypectomie s: Fragments of fundic gland polyps (8). B. Esophagus, 32 cm, biopsies: Columnar- type mucosa with intestinal metaplasia, consistent with s pecialized Mendez-type mucosa. Negative for dyspla zheng. No squamous esophageal mucosa present for histologic evaluation. C. Esophagus, 30 cm, biopsies: Columnar- type gastric mucosa with intestinal metaplasia, consistent w ith specialized Mendez-type mucosa. Negative for dyspla zheng. Associated squamous esophageal mucosa with no diagn ostic abnormalities. D. Esophagus, 28 cm, biopsies: Columnar- type gastric mucosa with intestinal metaplasia, consistent w ith specialized Mendez-type mucosa. Negative for dyspla zheng. Associated squamous esophageal mucosa with histolog ically mild reflux esophagitis. E. Colon, sigmoid, polypectomy: Tubular adenoma; negative for high grade dysplasia. [facility] GI Patient Name: Mary Jane Rockwell Procedure Date: 02/01/2018 9:55 AM Date of : 1945 Age: 72 Gender: Female Procedure: Colonoscopy Providers: Jazmyne Weaver MD, Kerry Foreman NP (Ordering Provider) Referring Provider: Kerry Armas NP Pre-op Diagnoses: Screening for colorect al malignant neoplasm Post-op Diagnoses: - Diverticulosis in the sigmoid colon, in the descending colon and in the transverse colon. - One 3 mm polyp in the sigmoid colon, removed with a cold snare. Resected and retrieved. - Non-bleeding internal hemorrhoids. Recommendation: - Repeat colonoscopy in 5 years for mindy veillance. Findings: The digital rectal exam was normal. Per tinent negatives include normal sphincter tone. Multiple large-mouthed diverticula were found in the sigmoid colon, descending colon and transverse colon. A 3 mm polyp was found in the sigmoid c olon. The polyp was flat. The polyp was removed with a cold snare. Re section and retrieval were complete. Estimated blood loss was mini mal. Non-bleeding internal hemorrhoids were found during retroflexion. The hemorrhoids were small. Medicines: Fentanyl 50 micrograms IV Complications: No immediate complication s. Estimated blood loss: Minimal. Procedure Details: The patient was seen, evaluated, and history reviewed. Airway and heart and lung exa ms were performed and were satisfactory for alexandre nned sedation care. The risks, benefits and alternatives fo r the procedure and sedation were discussed a nd informed consent was obtained. A procedural paus e was conducted in the presence of assisting personnel to verify the correct patient identity and procedure to be performed. Throughout the procedure, the patient's blood pressure, pulse, and ox ygen saturations were monitored continuously . The Colonoscope was introduced under di rect vision through the anus and advanced to 2 cm i nto the ileum. The colonoscopy was performed wi thout difficulty. The patient tolerated the p rocedure well. The quality of the bowel preparat ion was good. Sedation: Moderate (conscious) sedation was admin istered by the endoscopy nurse and supervised by the endoscopist. The following parameters were monitored: oxygen saturation, heart rat e, blood pressure, and response to care. Total physician intraservice t trey was 25 minutes. Jazmyne Weaver MD 02/01/2018 10:54:41 AM This report has been signed electronical ly. Number of Addenda: 0 Note Initiated On: 02/01/2018 9:55 AM Scope Withdrawal Time 0 hours 14 minutes 2 seconds Jazmyne Weaver M.D. GI PROCEDURE ORDERABLES documented in this encounter Visit Diagnoses Diagnosis Hemorrhage Gastrointestinal Anemia Screening Cancer Colon documented in this encounter Admitting Diagnoses Diagnosis Hemorrhage Gastrointestinal Anemia Screening Cancer Colon documented in this encounter Administered Medications Inactive Administered Medications - up to 3 most recent administrations Medication Order MAR Action Action Date Dose Rate Site fentaNYL injection (SUBLIMAZE) Given 02/01/2018 10:29 AM CDT 50 mcg intravenous, Code/trauma/sedation medication, Starting on Thu02/01/18 at 1008 Given 02/01/2018 10:16 AM CDT 50 mcg Given 02/01/2018 10:08 AM CDT 50 mcg lactated ringers 75 mL/hr, intravenous, Continuous, Starting on 01/05 at 0900, Pre-Op lidocaine (PF) 40 mg/mL (4 %) injection Given 02/01/2018 10:08 A M CDT 3 mL (XYLOCAINE) Code/trauma/sedation medication, Starting on Thu02/01/18 at 1009 midazolam (PF) injection (VERSED) Given 02/01/2018 10:19 AM CDT 2 mg Code/trauma/sedation medication, Starting on Thu02/01/18 at 1008 Given 02/01/2018 10:11 AM CDT 2 mg Given 02/01/2018 10:08 AM CDT 2 mg sodium chloride injection 10 mL 10 mL, intravenous, Every 8 hours scheduled (RT), Firs t dose on Thu02/01/18 at 1500, Pre-Op, Peripheral Intravenous Cat heter and Rapid Infusion Catheter, prior to blood sampling, post blood transfusion or post blood s ampling sodium chloride injection 3 mL 3 mL, intravenous, As needed, line care, Starting on Thu02/01/18 at 0850, Pre-Op, Prior to and following infusion and betw een multiple consecutive infusions: sodium chloride 0.9 % injection sodium chloride injection 3 mL 3 mL, intravenous, Every 12 hours scheduled, First dos e on Thu02/01/18 at 0900, Pre-Op, Peripheral Intravenous Catheter and Rapid Infu bill Catheter, when no infusion to maintain patency documented in this encounter Active and Recently Administered Medications Times are shown in CDT. Scheduled Medication Order 01/30/2018 01/31/2018 02/01/2018 sodium chloride injection 10 mL 10 mL, intravenous, Every 8 hours schedu led (RT), First dose on Thu02/01/18 at 1500, Pre-Op, Peripheral Intravenous Catheter and Rapid Infusion Catheter, prior to blood sampling, post blood transfusion or post blood sampling sodium chloride injection 3 mL 0 900 (Due) 3 mL, intravenous, Every 12 hours schedu led, First dose on Thu02/01/18 at 0900, Pre-Op, Peripheral Intravenous Catheter and Rapid Infusion Catheter, when no infusion to maintain patency Continuous Medication Order 01/30/2018 01/31/2018 02/01/2018 lactated ringers 0900 (Due) 75 mL/hr, intravenous, Continuous, Starting on Thu02/01/18 at 09 00, Pre-Op PRN Medication Order 01/30/2018 01/31/2018 02/01/2018 fentaNYL injection (SUBLIMAZE) (COMPLETED) 1008 (Given - Provider: Marlen Cannon)1016 (Given - Provider: Marlen Cannon)1029 (Given - Provider: Marlen Cannon) intravenous, Code/trauma/sedation medication, Starting on Thu at 1008 lidocaine (PF) 40 mg/mL (4 %) injection (XYLOCAINE) (COMPLETED) 1008 (Given - Provider: Mareln Cannon - Comment: oral) Code/trauma/sedation medication, Starting on Thu02/01/18 at 1009 midazolam (PF) injection (VERSED) (COMPLETED) 1008 (Given - Provider: Marlen Cannon)1011 (Given - Provider: Marlen Cannon)1019 (Given - Provider: Marlen Cannon) Code/trauma/sedation medication, Starting on Thu02/01/18 at 1008 sodium chloride injection 3 mL 3 mL, intravenous, As needed, line care, Starting on Thu02/01/18 at 0850, Pre- Op, Prior to and following infusion and between multiple consecutive infusions: sodium chloride 0.9 % injection documented in this encounter Care Teams [place]amb[place] Pilot Relationship Specialty Start Date End Date Chastity Davidson M.D. PCP - General 03/19/17 01/11/20 documented as of this encounter
--- OUTSIDE RECORDS SUMMARY | 2022-08-31 10:08 | XMS_ITS | Encounter Summary ---
:1945 Author Organization [facility] Address [address] [place] [id number] Care Team Providers Name Role Phone Chastity Davidson M.D. Primary Care Provider Unavailable Reason for Referral Outpatient (Routine) - Closed Specialty Diagnoses / Procedures Referred By Referred To Contact Contact Gastroenterology and Diagnoses Hemorrhage Gastrointestinal JAYCE Davidson [facility] Hepatology Ankush [facility]wood [address] [place] [address] Referral ID Status Reason Start Date Expiration Date Visits V isits Requested Authorized [id number] Closed Specialty 09/23/2017 03/22/2018 1 1 Services Required ETING PROJECT MANAGER Reason for Visit Reason Comments Follow-up ED follow up, GI bleed Outpatient (Routine) - Closed Specialty Diagnoses / Procedures Referred By Contact Refer red To Contact Emergency Medicine Diagnoses Hemorrhage Gastrointestinal Sven Bansal [facility] Ronan Villaseñor M.D. [address] [place] [phone] Referral ID Status Reason Start Date Expiration Date Visits Requ ested Visits Authorized [id number] Closed 09/16/2017 03/15/2018 1 1 Encounter Details Date Type Department Care Team Description 09/23/2017 Office Visit Department of Stacey Bansal M.D. [address] [place] [phone] [facility] Family Medicine in Chastity Davidson M.D. 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 documented as of this encounter Last Filed Vital Signs Vital Sign Reading Time Taken Comments Blood Pressure 110/70 09/23/2017 10:27 AM MARKETING PROJECT MANAGER Pulse 84 09/23/2017 10:27 AM MARKETING PROJECT MANAGER Temperature 36.8 ??C (98.2 ??F) 09/23/2017 10:27 AM MARKETING PROJECT MANAGER Respiratory Rate 20 09/23/2017 10:27 AM MARKETING PROJECT MANAGER Oxygen Saturation - - Inhaled Oxygen Concentration - - Weight 96.7 kg (213 lb 3 oz) 09/23/2017 10:27 AM MARKETING PROJECT MANAGER Height 157.5 cm (5' 2.01) 09/23/2017 10:27 AM MARKETING PROJECT MANAGER Body Mass Index 38.98 09/23/2017 10:27 AM MARKETING PROJECT MANAGER documented in this encounter Progress Notes Chastity Davidson M.D. - 09/23/2017 10:30 AM CST SUBJECTIVE CHIEF COMPLAINT / REASON FOR VISIT Mary Jane Rockwell is a 72 y.o. female who presents for evaluation of Follow-up (ED follow up, GI bleed). HISTORY OF PRESENT ILLNESS Patient is a 72-year-old female who is seen in the emergency room for GI bleed. Things started [place] with a burning in her stomach and esophagus to the point where she could not sleep on . She then had emesis which was dark brown but she felt better afterwards. She did admit that her stools were blackish. Three days later she called in for an appointment and they thought she should be seen in the emergency room, so she was referred there. Her hemoglobin was 11.7 and she did have positive guaiac. She had been using a lot of ibuprofen 800 milligram for pain in her knees and the day of the incident some sciatic notch pain on the right. The day after she was in the ER her stools became normal and she has felt fine since. She has stopped the ibuprofenand is chronically taking pantoprazole. She does admit that yesterday she had a little vertigo when she rolled over in bed. Review of systems Constitutional: Negative. Skin: Negative. Eyes: Negative. HENT: Negative. Respiratory: Negative. Cardiovascular: Negative. Gastrointestinal: Positive for blood in stool, heartburn and vomiting. Genitourinary: Positive for incontinence. Hematological: Negative. Musculoskeletal: Positive for arthralgias, back pain and pain or stiffness in the joints. Neurological: Positive for light-headedness. Psychiatric/Behavioral: Negative. The following portions of the patient's history were reviewed and updated as appropriate: allergies,current medications, family history, medical history, social history, surgical history and problem list. OBJECTIVE BP 110/70 (BP Location: Left arm, Patient Position: Sitting, Cuff Size: Large) Pulse 84 Temp 36.8 ??C (Temporal) Resp 20 Ht 157.5 cm Wt 96.7 kg BMI 38.98 kg/m?? PHYSICAL EXAM Constitutional: She appears well-developed and well-nourished. Cardiovascular: Normal rate, regular rhythm and normal heart sounds. Exam reveals no gallop and no friction rub. No murmur heard. Pulmonary/Chest: Effort normal and breath sounds normal. No respiratory distress. She has no wheezes. She has no rales. Abdominal: Soft. Bowel sounds are normal. She exhibits no distension and no mass. There is no tenderness. There is no rebound and no guarding. Psychiatric: She has a normal mood and affect. Her behavior is normal. Judgment and thought content normal. ASSESSMENT / PLAN #1 Hemorrhage Gastrointestinal She had another CBC done yesterday and her hemoglobin is now 11.9 she is seen no more signs of bleeding rectally. Since we are unsure where this bleeding came from I think she should be scoped so I am referring her to Gastroenterology to evaluate. She agrees with this. Comments: Possibly from NSAID use Orders: - Post ED visit - Gastroenterology and Hepatology - General consult (clinic); Future Total time spent was 30 minutes with 25 minutes in counseling coordination of care. ETING PROJECT MANAGER documented in this encounter Plan of Treatment Scheduled Referrals Name Type Priority Associated Diagnoses Order S chedule Gastroenterology and Outpatient Routine Hemorrhage Expecte d: Hepatology - General Referral Gastrointestinal consult (clinic) (Approximat e), Expires: 09/23/2020 documented as of this encounter Visit Diagnoses Diagnosis Hemorrhage Gastrointestinal documented in this encounter Care Teams Aquaculture Farmer Relationship Specialty Start Date End Date Chastity Davidson M.D. PCP - General 03/19/17 01/11/20 documented as of this encounter
--- OUTSIDE RECORDS SUMMARY | 2022-08-31 10:08 | XMS_ITS | Encounter Summary ---
:1945 Author Organization [facility] Address [address] [place] [address] Care Team Providers Name Role Phone Chastity Davidson M.D. Primary Care Provider Unavailable Reason for Visit Reason Comments Possible Stomach bleed incident Referral by Dasia taylor Outpatient (Routine) - Closed Specialty Diagnoses / Procedures Referred By Referred To Contact Contact Gastroenterology and Diagnoses Hemorrhage Gastrointestinal Lety [facility] Hepatology Ankush Haywood [address] [place] [address] Referral ID Status Reason Start Date Expiration Date Visits V isits Requested Authorized [id number] Closed Specialty 09/23/2017 03/22/2018 1 1 Services Required Encounter Details Date Type Department Care Team Description 11/06/2017 Comprehensive Visit Department of Chastity Davidson M.D. Screening Cancer Colon (Primary Dx); [facility] Kerry Syed APRN, C.N.P., B.S.N., R.N. 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 documented as of this encounter Last Filed Vital Signs Vital Sign Reading Time Taken Comments Blood Pressure 122/80 11/06/2017 8:15 AM MEDICAL COST CONSULTANT Pulse 88 11/06/2017 8:15 AM MEDICAL COST CONSULTANT regular Temperature 36.2 ??C (97.2 ??F) 11/06/2017 8:15 AM MEDICAL COST CONSULTANT Respiratory Rate 12 11/06/2017 8:15 AM MEDICAL COST CONSULTANT Oxygen Saturation - - Inhaled Oxygen Concentration - - Weight 92.3 kg (203 lb 7.8 oz) 11/06/2017 8:15 AM MEDICAL COST CONSULTANT Height 158 cm (5' 2.21) 11/06/2017 8:15 AM MEDICAL COST CONSULTANT Body Mass Index 36.97 11/06/2017 8:15 AM MEDICAL COST CONSULTANT documented in this encounter Patient Instructions Patient InstructionsHeather Faye L.P.N. - 11/06/2017 8:30 AM CST EGD/Colonoscopy - Next available CAL COST CONSULTANT documented in this encounter Consult Notes Kerry Armas, ZOFIA, C.N.P. - 11/06/2017 8:30 AM CST Referring Physician: Chastity Davidson,* Primary Care Physician: Chastity Davidson M.D. Chief Complaint/Reason for Consult: Chief Complaint Patient presents with ??? Possible Stomach bleed incident Referral by Lety History of present illness: This is a 72 y.o. female who was [facility] GI Departmentfor evaluation of GI bleeding. Symptoms originally started a few days before September 16. She describes having significant heartburn and acid reflux symptoms. She also had an episode of vomiting which she describes as bile with suspected coffee-ground. She also had a black stool. She presented to the emergency room on September 16 for evaluation. Hemoglobin was 11.7, occult stool positive she alsohad an elevated BUN. Patient was discharged home with recommended follow-up. Patient reports using ibuprofen 800 mg 1-2 times daily sometimes 3 times a day. She has been doing this for several years for her arthritis pain. She has since discontinued use of ibuprofen since her ER visit. She does take pantoprazole 20 mg daily and has been doing this for several years. For the most part this does provide adequate relief of her GERD symptoms. In today's visit patient states that she is doing quite well she is not having any black or bloody stools. No nausea or vomiting, no heartburn symptoms. She is able to eat and drink without difficulties. She reports her last colonoscopy to be roughly 16 years ago she does have a family history with a father who had colon cancer in his 60s. Current Outpatient Prescriptions on File Prior to Visit Medication Sig Dispense Refill ??? acetaminophen (for_TYLENOL [...] multivitamin capsule Take by mouth daily. ??? [DISCONTINUED] pantoprazole (for_PROTONIX) 20 mg EC tablet Take 1 tablet (20 mg total) by mouth daily. 90 tablet 3 No current facility-administered medications on file prior to visit. Allergies Allergen Reactions ??? Gentamicin Other (see comments) ??? Neosporin (Vmh-Voi-Okhhr) [Tcaikudo-Funjdspqpu-Hvpdddpgu] Other (see comments) ??? Tobramycin Other (see comments) All other systems reviewed and are negative. The following systems were negative: Respiratory, Neuro Past Medical History: Diagnosis Date ??? Arthritis Inflammatory (HCC) ??? Gastroesophageal Reflux Disease NOS ??? Hemorrhage Gastrointestinal ??? Hypertension NOS Past Surgical History: Procedure Laterality Date ??? TONSILLECTOMY AND ADENOIDECTOMY N/A 1950 Tonsillectomy and adenoidectomy Social History Social History ??? Marital status: Spouse name: N/A ??? Number of children: N/A ??? Years of education: N/A Occupational History ??? Not on file. Social History Main Topics ??? Smoking status: Former Smoker Packs/day: 0.25 Years: 35.00 Types: Cigarettes ??? Smokeless tobacco: Never Used ??? Alcohol use 1.8 oz/week 3 Glasses of wine per week Comment: none since Oct ??? Drug use: No ??? Sexual activity: Yes Partners: Male control/ protection: Post-menopausal Other Topics Concern ??? Not on file Social History Narrative ??? No narrative on file Family History Problem Relation Age of Onset ??? Breast cancer Mother ??? Prostate cancer Grandfather ??? Lung cancer Grandfather ??? Parkinsons disease Aunt ??? Dementia Grandmother ??? Colon cancer Father ??? Hypertension Son ??? Anxiety State, Unspecified Son ??? Alcohol consumption Son ??? Hypertension Son Objective: Vital Signs: Vitals: 11/06/17 0815 BP: 122/80 BP Location: Left arm Patient Position: Sitting Cuff Size: Large Pulse: 88 Resp: 12 Temp: 36.2 ??C TempSrc: Temporal Weight: 92.3 kg Height: 158 cm Constitutional: She appears well-developed. Cardiovascular: Normal rate. Pulmonary/Chest: Effort normal. Abdominal: Soft. Diagnostics: All diagnostic information pertinent to this visit was reviewed in detail. Assessment/Plan: 72-year-old female recent episode in mid September of GI bleeding suspected from peptic ulcer diseasegiven chronic NSAID use. Longstanding history of GERD. Her hemoglobin has remained stable. She has had no further signs of GI bleeding since that time. Patient is overdue for surveillance colonoscopy given her family history it is recommended that she pursue colonoscopy in addition would recommend an upper endoscopy as well to rule out any other potential etiologies that contributed to her GI bleeding episode. Patient is in agreement with this plan. Will also increase her proton pump inhibitor to 40 mg a day and will adjust medication after endoscopy. Avoid all NSAID medications. GoLYTELY was also sent to patient's pharmacy to prep for colonoscopy. Teaching was provided per nursing staff. Will follow up with patient once endoscopies are complete. I personally spent over half of a total 30 minutes face to face with the patient in counseling and discussion and/or coordination of care as described above. CAL COST CONSULTANT documented in this encounter Plan of Treatment Not on filedocumented as of this encounter Visit Diagnoses Diagnosis Screening Cancer Colon - Primary Hemorrhage Gastrointestinal Anemia Chronic Or Unspecified Peptic Ulcer Site Unspecified With Hemorrhage Gastroesophageal Reflux Disease Without Esophagitis documented in this encounter Care Teams Cement Mixer Driver Relationship Specialty Start Date End Date Chastity Davidson M.D. PCP - General 03/19/17 01/11/20 documented as of this encounter
--- OUTSIDE RECORDS SUMMARY | 2022-08-31 10:08 | XMS_ITS | Encounter Summary ---
:1945 Author Organization [facility] Address [address] [place] [address] Care Team Providers Name Role Phone Chastity Davidson M.D. Primary Care Provider Unavailable Reason for Visit Reason Comments Med Refill Encounter Details Date Type Department Care Team Description 01/08/2018 Refill Department of [facility] Fuad Ramos, L.P.NLa Med Refill Medicine, [facility], in [address] [place] [phone] [address] [facility] [place] [address] Social History Tobacco Use Types Packs/Day Years Used Date Smoking Tobacco: Former Cigarettes 0.3 35 Smokeless Tobacco: Never Alcohol Use Standard Drinks/Week Comments Yes 3 (1 standard drink = 0.6 oz pure alcoho l) none since Oct Sex Assigned at Date Recorded Female 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 PCP - General 03/19/17 01/11/20 documented as of this encounter
--- OUTSIDE RECORDS SUMMARY | 2022-08-31 10:08 | XMS_ITS | Encounter Summary ---
:[address] [facility] Address [address] [place] [address] Care Team Providers Name Role Phone Chastity Davidson M.D. Primary Care Provider Unavailable Reason for Visit Auth/Cert Specialty Diagnoses / Procedures Referred By Contact Refer red To Contact Diagnoses Anemia Hemorrhage Gastrointestinal Screening Cancer Colon Procedures AR COLONOSCOPY W TMR ABLATE AR EGD TRANSORAL DX ESOPHAGOGASTRODUODENOSCOPY COLONOSCOPY Referral ID Status Reason Start Date Expiration Date Visits Requ ested Visits Authorized [id number] 1 1 Encounter Details Date Type Department Care Team Description 02/01/2018 Surgery Department of Jazmyne Weaver, ESOPHAGOGASTR ODUODENOSCOPY Gastroenterology in [place] [address] [phone] Social History Tobacco Use Types Packs/Day Years Used Date Smoking Tobacco: Former Cigarettes 0.3 35 Smokeless Tobacco: Never Alcohol Use Standard Drinks/Week Comments Yes 3 (1 standard drink = 0.6 oz pure alcoho l) none since Oct Sex Assigned at Date Recorded Female 10/12/2017 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 None Ambulatory Infusion Pump/Implanted Humane Officer- OBJECTIVE Pain Score: 0 - No pain [...] Tubular adenoma; negative for high grade dysplasia. [facility] [place], operated [facility] Patient Name: Mary Jane Rockwell Procedure [...] Tubular adenoma; negative for high grade dysplasia. [facility] [place], [facility] Patient Name: Mary Jane Rockwell Procedure [...] Time At Signature Report Lora Boogie, 02/02/2018 [facility] C electronicbrian DAMON 12:10 PM [facility] signed by [employer] [facility] 02[facility]02/[address] [facility] 12:10 PM HEALTH CDT SYSTEM- [facility] Specimen Received A. Stomach biopsy, polyp [address] [facility] B. Esophagus biopsy, 32cm, r/o [facility] 12:10 PM HEALTH C. Esophagus biopsy, 30cm, r/o [facility] CDT SYSTEM- D. Esophagus biopsy, 28cm, r/o [facility] E. Colon biopsy, sigmoid polyp Clinical History Anemia 02/02/[address] [facility] Gastrointestinal hemorrhage 12:10 PM HE ALTH Colon cancer screening CDT SYSTEM- [facility] Gross Description A: ??Stomach. ??Consists of mucosal fragments to a 1 cm 02/02/[address] [facility] diameter. ??ESB, A. 12:10 PM HEALTH B: ??Esophagus 32 cm. ??Consists of mucosal fragments to a 2 CDT SYSTEM- millimeter diameter. ??ESB, B. [facility] C: ??Esophagus 30 cm. ??Consists of mucosal fragments to a 2 millimeter diameter. ??ESB, C. D: ??Esophagus 28 cm. ??Consists of mucosal fragments to a 2 millimeter diameter. ??ESB, D. E: ??Colon. ??Consists of mucosal fragments to a 3 millimete r diameter. ??ESB, E. ?? DDGpp Interpretation A. Stomach, polypectomies: Fragments of fundic gland polyps 02/02/[address] [facility] (8). 12:10 PM HEALTH B. 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 Negative for dysplasia. No squamous [...] Organization Address City/State/ZIP Code Phon e Number [facility] [address] [place] [address] LAB UPPER GI ENDOSCOPY (02/01/2018 9:56 AM [...] Tubular adenoma; negative for high grade dysplasia. [facility] [place], operated [facility] Patient Name: Mary Jane Rockwell Procedure [...] Tubular adenoma; negative for high grade dysplasia. [facility] [place] Patient Name: Mary Jane Rockwell Procedure Date: 02/01/2018 9:55 AM Date of : 1945 Age: 72 Gender: Female Procedure: Colonoscopy Providers: Jazmyne Weaver MD, Keryr Foreman NP (Ordering Provider) Referring Provider: Kerry [...] Diagnosis Hemorrhage Gastrointestinal Anemia Screening Cancer Colon Anemia Hemorrhage Gastrointestinal Screening Cancer Colon documented in [...] injection (XYLOCAINE) (COMPLETED) 1008 (Given - Provider: Marlen Cannon - Comment: oral) Code/trauma/sedation medication, Starting [...] injection documented in this encounter Care Teams Commercial Attorney Relationship Specialty Start Date End Date Chastity Davidson M.D. PCP - General 03/19/17 01/11/20 documented as of this encounter
--- OUTSIDE RECORDS SUMMARY | 2022-08-31 10:08 | XMS_ITS | Encounter Summary ---
:1945 Author Organization [facility] Address [address] [place] [address] Care Team Providers Name Role Phone Chastity Davidson M.D. Primary Care Provider Unavailable Encounter Details Date Type Department Care Team Description 03/03/2018 Orders Only Department of Geovanna Lozano Primary Ost eoarthritis Orthopedic Surgery in [facility] Knee Left [place], [place] [address] [facility] [address] [place] [phone] Social History Tobacco Use Types Packs/Day Years Used Date Smoking Tobacco: Former Cigarettes 0.3 35 Smokeless Tobacco: Never Alcohol Use Standard Drinks/Week Comments Yes 3 (1 standard drink = 0.6 oz pure alcoho l) none since Oct Sex Assigned at Date Recorded Female 10/12/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 documented in this encounter Results MRSA/Staphylococcus aureus, Nasal, by PCR (03/03/2018 4:06 PM CDT) P athologist Signature MRSA, PCR Negative Negative 03/03/2018 [facility] 7:43 PM T [facility] Comment: Notes\S\\S\mary jane rockwell 1945 Staphylococcus aureus, Negative Negative 03/03/2018 7:43 P M [facility] PCR CDT [facility] Comment: Notes\S\\S\mary jane rockwell 1945 Specimen Anatomical Collection Method Collection Time Receive d Time (Source) Location / / Volume Laterality Swab (Nares) 03/03/2018 4:06 PM 8 4:30 CDT PM CDT Fausto Hoffman D.O. LAB MICROBIOLOGY - GENERAL O RDERABLES Performing Organization Address City/State/ZIP Code Phon e Number [facility] [address] [place] [address] LAB documented in this encounter Visit Diagnoses Diagnosis Primary Osteoarthritis Knee Left documented in this encounter Care Teams Fence Supervisor Relationship Specialty Start Date End Date Chastity Davidson M.D. PCP - General 03/19/17 01/11/20 documented as of this encounter
--- OUTSIDE RECORDS SUMMARY | 2022-08-31 10:08 | XMS_ITS | Encounter Summary ---
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 documented in this encounter Results GASTROENTEROLOGY IMAGE EXAM (02/01/2018 10:00 AM CDT) Specimen (Source) Anatomical Collection Method Collection Time Re ceived Time Location / / Volume Laterality 02/01/2018 9:56 AM CDT Narrative [facility] - 02/01/2018 10:55 AM CDT This order has been created [...] on filedocumented in this encounter Care Teams Footwear Sales Coordinator Relationship Specialty Start Date End Date Chastity Davidson M.D. PCP - General 03/19/17 01/11/20 documented as of this encounter
--- OUTSIDE RECORDS SUMMARY | 2022-08-31 10:09 | XMS_ITS | Encounter Summary ---
:1945 Author Organization [facility] Address [address] [place] [address] Care Team Providers Name Role Phone Unavailable Primary Care Provider Unavailable Encounter Details Date Type Department Care Team Description 01/02/[address] [facility] Velasquez Davidson M.D. 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 ORAL) multivitamin capsule Take by mouth 0 11/13/2009 daily. ibuprofen Take 1 tablet by 0 11/13/2009 10/12/19 18 (for_ADVIL,MOTRIN) 600 mg mouth 3 (three) tablet times a day as needed. documented as of this encounter Miscellaneous Notes Miscellaneous - Tiki Davidson M.D. - 01/04/2016 2:36 PM CDT Normal Results Letter January 04, 2016 CHRIS ROCKWELL [id number] [facility] [id number] Dear CHRISDebo ROCKWELL, I am pleased to report that your results from the following diagnostic test(s) are normal. Please follow up with us as we discussed during your visit or sooner if you have any concerns. If you have questions or concerns, please do not hesitate to call our office. Result Name Current Result Normal Range FIT/Fecal Occult Bld-Cannon Negative 01/02/2016 Negative - Sincerely, TIKI DAVIDSON [address] [place] [address] Electronic Signature Electronically Signed By: TIKI DAVIDSON MD On: January 04, 2016 This document has images extracted. Source: [facility] POWERCHART Document Id: [id number] Miscellaneous - Tiki Davidson M.D. - 01/02/2016 4:35 PM CDT Normal Results Letter January 02, 2016 CHRIS ROCKWELL [id number] [facility] [id number] Dear CHRIS ROCKWELL, Your results from the following diagnostic test(s) are below. Please follow up with us as we discussed during your visit or sooner if you have any concerns. If you have questions or concerns, please donot hesitate to call our office. Sugar is mildly elevated. Result Name Current Result Previous Result Normal Range Sodium Lvl (mmol/L) 141 01/02/2016 142 12/04/2014 135 - 145 Potassium Lvl (mmol/L) 4.1 01/02/2016 3.6 12/04/2014 3.5 - 5.1 Chloride (mmol/L) 99 01/02/2016 103 12/04/2014 98 - 107 CO2 (mmol/L) 28 01/02/2016 (H) 30 12/04/2014 22 - 29 AGAP (mmol/L) 14 01/02/2016 9 12/04/2014 7 - 15 Glucose Fasting (mg/dL) (H) 109 01/02/2016 70 - 99 Creatinine (mg/dL) 0.9 01/02/2016 0.9 12/04/2014 0.6 - 1.1 EGFR (MDRD) (mL/min/SA) >60.0 01/02/2016 >60.0 12/04/2014 >=60.0 - EGFR (MDRD) (mL/min/SA) >60 01/02/2016 >60 12/04/2014 >=60 - BUN (mg/dL) 21 01/02/2016 20 12/04/2014 6 - 24 ertalt Calcium Lvl (mg/dL) 9.7 01/02/2016 9.6 12/04/2014 8.8 - 10.3 Cholesterol (mg/dL) 167 01/02/2016 - <=199 Trig (mg/dL) 83 01/02/2016 - <=149 HDL (mg/dL) 65 01/02/2016 >=50 - LDL Calculated (mg/dL) 85 01/02/2016 - <=129 Sincerely, TIKI DAVIDSON [address] [place] [address] Electronic Signature Electronically Signed By: TIKI DAVIDSON MD On: January 02, 2016 This document has images extracted. Source: [facility] IntrusicCHART Document Id: [id number] Electronically signed by Conversion, [facility] Business Operations Coordinator [id number] at 02/28/2017 3:54 PM CDT documented in this encounter Plan of Treatment Not on filedocumented as of this encounter Procedures Procedure Name Priority Date/Time Associated Diagnosis Comme nts LIPID PANEL, S Routine 01/02/2016 8:23 AM Results for this CDT procedure are i n the results section. OCCULT BLOOD, QL, Routine 01/02/2016 8:23 AM Resu lts for this IMMUNOCHEMICAL, F CDT procedure are in the results section. BASIC METABOLIC Routine 01/02/2016 8:23 AM Result s for this PANEL, S/P CDT procedure are i n the results section. documented in this encounter Results (ABNORMAL) BMP (Basic Metabolic Panel) (01/02/2016 8:23 AM CDT) [facility] gist Method Time Signature Sodium, S 141 135 - 145 POWERCHART MMOLL Potassium, S 4.1 3.5 - 5.1 POWERCHART MMOLL Chloride, S 99 98 - 107 POWERCHART MMOLL CO2 Total 28 22 - 29 POWERCHART MMOLL Glucose, 109 (H) 70 - 99 MGDL POWERCHART Fasting, S BUN (Blood Urea 21 6 - 24 MGDL POWERCHART Nitrogen), S Creatinine 0.9 0.6 - 1.1 POWERCHART MGDL Calcium, Total, 9.7 8.8 - 10.3 POWERCHART S MGDL Anion Gap 14 7 - 15 MMOLL POWERCHART HXeGFR (MDRD) >60.0 >=60.0 POWERCHART MLMINSA Comment: Results are in mL/min/1.73m squared CKD Stage I: GFR > 90 CKD Stage II: GFR 60 to 89 CKD Stage III: GFR 30 to 59 CKD Stage IV: GFR 15 to 29 CKD Stage V: GFR < 15 or Dialysis eGFR Black/ >60 >=60 MLMINSA POWERCHART Specimen (Source) Anatomical Collection Method Collection Time Re ceived Time Location / / Volume Laterality Blood 01/02/2016 8:23 AM CDT Tiki Davidson M.D. LAB BLOOD ADD-ON Performing Organization Address City/State/ZIP Code Phon e Number POWERCHART Fecal Occult Blood, Colorectal Cancer Screen, Qualitative, Immunochemical (01/02/2016 8:23 AM CDT) athologist Signature Occult Blood, Negative Negative POWERCHART Fecal Comment: Negative result. ??This test will not de tect upper gastrointestinal bleeding; the HemoQuant test (9220)should be ordered if clinically indicated. Test Performed by: [place] [address] Content Architect: Mina Neil II, M.D., Ph.D. Specimen (Source) Anatomical Collection Method Collection Time Re ceived Time Location / / Volume Laterality Stool 01/02/2016 8:23 AM CDT Tiki Davidson M.D. LAB BODY FLUIDS AND STOOLS O RDERABLES Performing Organization Address City/State/ZIP Code Phon e Number POWERCHART Lipid Panel (01/02/2016 8:23 AM CDT) athologist Signature Cholesterol, 167 <=199 MGDL POWERCHART Total Comment: 2014 National Lipid Association recommen dations for Total Cholesterol in adults ages 18 and up: Desirable <200 mg/dL Borderline high 200-239 mg/dL High 240 mg/dL 2014 National Lipid Association recommen dations for Total Cholesterol in children ages 2 to 17. Acceptable <170 mg/dL Borderline High 170-199 mg/dL High 200 mg/dL HX HDL 65 >=50 MGDL POWERCHART Comment: 2014 National Lipid Association recommen dations for HDL-C in adults ages 18 and up: Low <40 mg/dL (Men) Low <50 mg/dL (Women) 2014 National Lipid Association recommen dations for HDL-C in children ages 2 to 17. Low <40 mg/dL Borderline Low 40-45 mg/dL Acceptable >45 mg/dL Triglycerides 83 <=149 MGDL POWERCHART Comment: 2014 National Lipid Association recommen dations for Triglycerides in adults ages 18 and up: Normal <150 mg/dL Borderline High 150-199 mg/dL High 200-499 mg/dL Very High 500 mg/dL 2014 National Lipid Association recommen dations for Triglycerides in children ages 2 to 9. Acceptable <75 mg/dL Borderline High 75-99 mg/dL High 100 mg/dL 2014 National Lipid Association recommen dations for Triglycerides in children ages 10 to 17. Acceptable <90 mg/dL Borderline High 90-129 mg/dL High 130 mg/dL Trigs >400mg/dL: Triglycerides >400 mg/ dL. Calculated LDL cholesterol is not valid. Non-HDL cholesterol may be used for risk assessment when triglycerides are >400mg/dL. Calculated LDL 85 <=129 MGDL POWERCHART Comment: 2014 National Lipid Association recommen dations for LDL-C in adults ages 18 and up: Desirable <100 mg/dL Above desirable 100-129 mg/dL Borderline high 130-159 mg/dL High 160-189 mg/dL Very High 190 mg/dL 2014 National Lipid Association recommen dations for LDL-C in children ages 2 to 17. Acceptable <110 mg/dL Borderline High 110-129mg/dL High 130 mg/dL LDL-C >190mg/dL: The markedly elevated LDL level is suggestive of a genetic condition such as familial hypercholesterolemia(FH) or familial defective apolipoprotein B-100 (FDB). Molecular genetic t esting for FH and FDB is available throu [facility]: FH/ADH Genetic Reflex Hussein el (test ADHP). Acquired (non-genetic) causes of markedly increased LDL cholesterol include cholestatic liver disease due to the presence of LpX. If a genetic form of hypercholesterolemia is suspected, family studies including biochemical testing fo r lipids (total cholesterol,triglycerides, LDL cholesterol and HDL cholesterol) are recommended. ??Please contact the laboratory at or the on-line test catalog at [employer] for information about how to order these polly ts or to speak with a genetic counselor. Further interpretation would require clinical information. Specimen (Source) Anatomical Collection Method Collection Time Re ceived Time Location / / Volume Laterality Blood 01/02/2016 8:23 AM CDT Tiki Davidson M.D. LAB BLOOD ADD-ON Performing Organization Address City/State/ZIP Code Phon e Number POWERCHART documented in this encounter Visit Diagnoses Not on filedocumented in this encounter
--- OUTSIDE RECORDS SUMMARY | 2022-08-31 10:09 | XMS_ITS | Encounter Summary ---
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 documented as of this encounter Progress Notes Katherine Musa P.T., D.P.T. - 02/01/2016 12:00 AM CDT [id number] DATE: 02/01/2016 START OF CARE: 01/25/2016 REASON FOR VISIT: Patient returns to outpatient physical therapy for followup with right BPPV, canalithiasis. Patient states that she has had no symptoms since her initial evaluation and treatment. Additionally, patient has had no symptom reproduction with self Viri at home. She states that she is independent with her home exercise program. DISCHARGE SUMMARY: The patient is appropriate for discharge from outpatient physical therapy due to resolution of symptoms. Patient has achieved all short- term and long-term goals at this time. Chargesnot appropriate this session. PLAN: Discharge patient from outpatient physical therapy at this time. G CODES: W5237-ED, W3253-ZR. Katherine Musa P.T., D.P.T./pos Electronically Signed By: KATHERINE MUSA DPT On: 02/05/2016 11:49 AM Modified by and Electronically Signed by: KATHERINE MUSA DPT On: 02/05/2016 11:49 AM Source: [facility] [email or web address] Document Id: [id number] documented in this encounter Consult Notes Katherine Musa P.T., Bobby. - 01/25/2016 12:00 AM CDT [id number] PT MEDICARE PLAN OF CARE Start of Care: 01/25/2016. Onset Date: 2015. Medicare Number: [id number]. Patient Type: Physical therapy. Provider Number: [id number]. Referring Physician: Chastity Davidson M.D. Prior Hospitalization: N/A. Medical Diagnosis: Vertigo. Treatment Diagnosis: Right benign paroxysmal positional vertigo, canalithiasis. INITIAL ASSESSMENT History/interview/reason for referral/current complaint: The patient is a 70-year-old female referred to outpatient physical therapy by Dr. Davidson for vertigo that began last September around the same time that the patient had an upper respiratory infection. The patient notes that her dizziness resolved over the course of the following month with most movements, but she continues to experience dizziness with lying down, especially quickly and rotating to the right with her head. She states that her symptoms were re exacerbated over Easter when she had a cough/cold. She continues to report lyingdown in bed and rolling in bed her aggravating activities. Patient describes her dizziness as a spinning sensation. She denies any falls or near falls associated with the onset of her symptoms. However, she does note mild path deviation, which she reports has occurred over the last several years. She attributes this to poor alignment of her great knee. The patient states that relieving activities forher symptoms include time. She has not taken any medications to help with her symptoms. She denies any numbness or tingling throughout the upper or lower extremities, any changes in bowel or bladder, any fever. The patient states that her functional limitations include disrupted walking, disrupted sleep and decreased quality of life. Pertinent medical and social history: Hypertension, GERD, post fracture of the hand. Patient notes ahistory of BPPV stating that she received physical therapy for vertigo 11 to 12 years ago with good effect. She states that her symptoms feel the same as what they were at that time. She lives in a multilevel home with her . She notes she has a flight of stairs up to the bedroom and down to thebasement, as well as 1 to 2 steps to enter her house. Patient notes she is negotiating these withoutdifficulty. Patient is retired. Patient goals: To get the rocks back where they belong/to decrease her dizziness. EXAMINATION: Observation: The patient is a pleasant, 70-year-old female, who is alert and oriented x3. She ambulates back to the treatment room independently about 50 feet without an assistive device. She demonstrates mild forward head and rounded shoulders. PROM/AROM: Within normal limits throughout bilateral upper extremities and cervical spine. MMT: Within normal limits throughout bilateral upper extremities. Palpation: Patient denies tenderness to palpation of cervical paraspinals and suboccipital muscles. She denies any history of headaches, aural fullness and ringing. Pain: Patient denies pain. Special tests/functional outcome measures: Patient is negative for vertebral artery testing, as wellas Spurling's and distraction. Patient demonstrated normal gaze holding, visual tracking, and remaining cranial nerve testing 1 through 12. She had a negative cVOR, head shake, head thrust, left Kyle-Hallpike, bilateral roll test and Fukuda stepping. Her only positive test was right Kyle- Hallpike, demonstrating immediate onset of upbeating right torsional nystagmus lasting approximately 10 seconds. Integumentary: Unremarkable. Neurologic evaluation: Reflexes: 1+ for bilateral biceps, triceps and brachioradialis. Sensation: Intact to light touch throughout the face, cervical and upper extremity dermatomes. Gait/Balance: Romberg: Negative, single limb stance: Patient unable to maintain. In 2 seconds, tandem patient able to maintain for approximately 10 seconds bilaterally. The patient's gait had no remarkable deficits other than widened base of support and age appropriate royce. TREATMENT (30 minutes initial evaluation, 15 minutes canalith repositioning maneuver, 15 minutes total treatment time): Following positive right Kyle-Hallpike, patient immediately transitioned into canalith repositioning maneuver. Patient demonstrated upbeating right torsional nystagmus in the first and third position. Patient denied any significant dizziness in the second and third positions. Patient then educated on objective findings and plan of care, verbalizing understanding and agreement. Additionally, patient educated on self Viri to perform at home, with patient demonstrating understanding. Patient noted withdecreased duration of nystagmus and subjective dizziness to about 5 seconds with first position. No nystagmus noted with second and third position. Patient also provided with 5 habituation exercises jared performed in the next day or 2 and then every day thereafter. She voiced understanding and agreement. Assessment: Patient presents with signs and symptoms consistent with right BPPV, most likely canalithiasis. Patient has had several episodes of this in the past and is deemed appropriate for education on self Viri for improved self- management of symptoms now and in the future. Current status of functional and relevant impairments: 1. Dizziness. 2. Impaired walking. 3. Disrupted sleep. 4. Decreased quality of life. Prognosis for improvements and indicators: Excellent given patient's current level of functioning, success with previous treatment and high motivation. Patient/family goals: As stated above. PLAN: Therapeutic exercise, incorporating habituation exercises, neuromuscular re-education for balance training, canalith repositioning maneuver for symptom reduction/alleviation. G CODES: Change in body position, W4068-YP, L0803-EK. SHORT-TERM GOALS: 1. Patient will be independent with self Viri by next session for improved self-management of symptoms. 2. Patient will be independent with habituation exercises in 2 weeks for improved self-management ofsymptoms. 3. Patient will report 50% reduction in dizziness with aggravating positions such as lying in bed and rolling to the right to promote return to prior level of function. LONG-TERM GOALS: 1. Patient will report 90% improvement in dizziness with aggravating positions lying in bed and rolling to the right to promote prior level of function in 4 to 6 weeks. 2. Implement advanced home exercise program to promote improved balance with patient following discharge from outpatient physical therapy in 4 to 6 weeks. FREQUENCY AND DURATION: 1 to 2 times per week for a total of up to 12 sessions. CERTIFICATION PERIOD: 01/25/2016 to 03/28/2016. Provider Signature Date/Time I have reviewed this plan of treatment and re-certify a continuing need for services. Please sign this plan of care and return in the enclosed self-addressed, stamped envelope. Katherine Musa P.T., Charleen.P.T./pos Electronically Signed By: KATHERINE MUSA DPT On: 01/29/2016 07:04 AM Modified by and Electronically Signed by: KATHERINE MUSA DPT On: 01/29/2016 07:04 AM Co-Signed By: CHASTITY DAVIDSON MD On: 02/25/2016 03:32 PM Source: [facility] [email or web address] Document Id: [id number] documented in this encounter Miscellaneous Notes Miscellaneous - Conversion, Historical Provider Ser - 01/29/2016 2:28 PM CDT Coding Summary-Paper Based CODING DATE: 01/29/2016 FINAL MA [place] [facility] STATUS: Still Patient/Expected to Rtn pt [facility] PAYOR: Medicare Advantage ADMIT DX: REASON FOR VISIT DX: FINAL DX: PRINCIPAL: H81.11 Benign paroxysmal vertigo, right ear SECONDARY: R26.89 Other abnormalities of gait and mobility I10 Essential (primary) hypertension K21.9 Gastro-esophageal reflux disease without esophagitis PROCEDURES DOCTOR NAME DATE NOTE: The code number assigned matches the documented diagnosis and / or procedure in the patient's chart. However, the narrative phrase printed from the coding software may appear abbreviated, or result in slightly different terminology. Coded By: AVA MAYERS Date Saved: 01/29/2016 02:28 pm [facility] Document Id: [id number] documented in this encounter Plan of Treatment Not on filedocumented as of this encounter Visit Diagnoses Not on filedocumented in this encounter
--- OUTSIDE RECORDS SUMMARY | 2022-08-31 10:09 | XMS_ITS | Encounter Summary ---
:1945 Author Organization [facility] Address [address] [place] [address] Care Team Providers Name Role Phone Chastity Davidson M.D. Primary Care Provider Unavailable Reason for Referral Outpatient (Routine) - Closed Specialty Diagnoses / Procedures Referred By Contact Refer red To Contact Emergency Medicine Diagnoses Hemorrhage Gastrointestinal Sven Bansal [facility] Ronan Villaseñor M.D. [address] [place] [address] Referral ID Status Reason Start Date Expiration Date Visits Requ ested Visits Authorized [id number] Closed 09/16/2017 03/15/2018 1 1 [facility] Reason for Visit Reason Comments Black or Bloody Stool pt had dark emesis on Thursday . she has been having close to black stools since then. nimo rangel called PCP today and they told her that was an emergency a nd to come to ER Encounter Details Date Type Department Care Team Description 09/16/2017 Emergency [facility] Sven Bansal [facility] [place] Villaseñor M.D. Gastrointestinal (Primary Emergency Department [address] [place] [address]) [address] [place] [phone] Social History Tobacco Use Types Packs/Day Years Used Date Smoking Tobacco: Former Sex Assigned at Date Recorded Female 10/12/2017 8:38 AM [facility] documented as of this encounter Last Filed Vital Signs Vital Sign Reading Time Taken Comments Blood Pressure 135/79 09/16/2017 1:30 PM [facility] Pulse 75 09/16/2017 1:30 PM [facility] [employer] [employer] Temperature 36.5 ??C (97.7 ??F) 09/16/2017 11:25 AM [facility] Respiratory Rate 18 09/16/2017 11:25 AM [facility] [employer] [facility] Oxygen Saturation 99% 09/16/2017 1:30 PM [facility] [employer] [employer] Inhaled Oxygen Concentration - - Weight 96.5 kg (212 lb 11.9 oz) 09/16/2017 11:25 AM [facility] [employer] [employer] Height 157.5 cm (5' 2) 09/16/2017 11:25 AM [facility] [employer] [facility] Body Mass Index 38.91 09/16/2017 11:25 AM [facility] documented in this encounter Discharge Instructions AttachmentsThe following attachments cannot be sent through Care Everywhere. Gastrointestinal Bleeding (Citizen Of [place])documented in this encounter Medications at Time of [...] mouth daily. documented as of this encounter ED Notes Sven Bansal M.D. - 09/16/2017 1:44 PM CST SUBJECTIVE CHIEF COMPLAINT/REASON FOR VISIT Black or Bloody Stool (pt had dark emesis on Thursday. she has been having close to black stools since then. she called PCP today and they told her that was an emergency and to come to ER) HISTORY OF PRESENT ILLNESS The patient is a 72-year-old female presenting to the emergency department for evaluation of dark stool. Patient states that she had a dark emesis on Thursday, since that time she has been having black stools, known to use chronic NSAIDs, ibuprofen, for arthritis. Patient was concern for possible GI bleeding, called her clinical referred to the emergency department. She has no abdominal pain, no other associated symptoms, nothing making it better or worse, she has tried no medications or interventions, now here for emergent evaluation. REVIEW OF SYSTEMS Constitutional: Negative. HENT: Negative. Eyes: Negative. Respiratory: Negative. Cardiovascular: Negative. Gastrointestinal: Positive for blood in stool. Genitourinary: Negative. Musculoskeletal: Negative. Skin: Negative. Neurological: Negative. Psychiatric/Behavioral: Negative. OBJECTIVE Initial Vitals Temperature Pulse Rate Heart Rate Resp Rate Blood Pressure SpO2 09/16/17 1125 09/16/17 1200 09/16/17 1125 09/16/17 1125 09/16/17 1125 09/16/17 1125 36.5 ??C 79 86 18 (!) 127/94 96 % Pain Score 09/16/17 1125 0 - No pain PHYSICAL EXAMINATION Constitutional: She appears well-developed and well-nourished. HENT: Head: Atraumatic. Nose: Nose normal. Mouth/Throat: Oropharynx is clear and moist. Mucous membranes are moist. Eyes: Conjunctivae and EOM are normal. Neck: Neck supple. Cardiovascular: Normal rate, regular rhythm and normal heart sounds. Pulses are strong and palpable.Capillary refill: takes less than 3 seconds, Pulmonary/Chest: Effort normal and breath sounds normal. Abdominal: Soft. Bowel sounds are normal. Rectal examination performed in the emergency department showed no evidence of external hemorrhoids,no bright red blood, she did have pranav black stool identified on gross inspection, will be sent for testing. Musculoskeletal: Normal range of motion. Neurological: She is alert and oriented to person, place, and time. Skin: Skin is warm and dry. Psychiatric: She has a normal mood and affect. ASSESSMENT/PLAN Impression and Plan Patient is a 72-year-old hemodynamically and vital is stable female presenting to the emergency department with dark stool. Guaiac test was positive. Her hemoglobin shows no evidence of anemia, she hasno active bright red blood per rectum, no hemodynamic instability. We did recommend discontinuation of her NSAID medication for possible gastritis asEtiology, she is comfortable with discharge home andwe referred her for outpatient GI follow-up for likely endoscopy/colonoscopy for possible GI bleeding. Patient was strongly advised and counseled reasons to return including near syncope, generalized weakness, or bright red blood per rectum for repeat evaluation. She and her are comfortable inunderstanding of this plan, safe for discharge home. Final diagnosis: Rectal bleeding Disposition: Home with outpatient GI follow-up recommended.. Reviewed and summarized previous medical records including: Lab results. ED Course Final Diagnoses: as of Sep 16 1818 Hemorrhage Gastrointestinal - Possibly from NSAID use Sven Bansal M.D. 09/16/171821 [facility] documented in this encounter Plan of Treatment Scheduled Referrals Name Type Priority Associated Diagnoses Order S chedule Post ED visit Outpatient Referral Routine Hemorrhage Expecte d: Gastrointestinal 09/16/2017 (Approximate), Expires: 09/16/2020 documented as of this encounter Procedures Procedure Name Priority Date/Time Associated Comments Diagnosis HEMOCCULT STAT 09/16/2017 12:43 Results for this PM [facility] [employer] [employer] procedure are i n the results section. PROTHROMBIN TIME STAT 09/16/2017 11:57 Results for this (PT), P AM [facility] [employer] [employer] procedure are i n the results section. CBC WITHOUT STAT 09/16/2017 11:57 Results for this DIFFERENTIAL, B AM [employer] [employer] procedure ar e in the results section. TYPE AND SCREEN STAT 09/16/2017 11:57 Results for this AM [facility] [employer] [employer] procedure are i n the results section. BASIC METABOLIC STAT 09/16/2017 11:57 Results for this PANEL, S/P AM [employer] [employer] procedure are i n the results section. documented in this encounter Results (ABNORMAL) Hemoccult, Feces (09/16/2017 12:43 PM [facility] [employer] [employer]) athologist Signature Hemoccult Positive (A) Negative 09/16/2017 [facility] 1:32 PM [facility] Specimen Anatomical Collection Method Collection Time Receive d Time (Source) Location / / Volume Laterality Stool (Stool) 09/16/2017 12:43 09/16/2017 1:13 PM [facility] [employer] [employer] PM [facility] Sven Bansal M.D. LAB BODY FLUIDS AND STOOLS O RDERABLES Performing Organization Address City/[facility] Phon e Number [address] [address] LAB Type and screen (09/16/2017 11:57 AM [facility] [employer] [employer]) athologist [facility] ABO Group O 09/16/2017 [facility] 12:40 PM [facility] Rh Type POS 09/16/2017 [facility] 12:40 PM [facility] Antibody Screen NEG 09/16/2017 [facility] 12:53 PM [facility] ELXM Eligible Y 09/16/2017 [facility] 12:53 PM [facility] Specimen Anatomical Collection Method Collection Time Receive d Time (Source) Location / / Volume Laterality Blood (Blood, 09/16/2017 11:57 09/16/2017 Venous) AM [facility] [employer] [employer] 12:01 PM [facility] [employer] [employer] Sven Bansal M.D. LAB BLOOD BANK TEST ORDERABL ES Performing Organization Address [facility] Phon e Number [address] [address] LAB (ABNORMAL) BMP (Basic Metabolic Panel) (09/16/2017 11:57 AM [facility] [employer] [employer]) athologist [facility] Potassium, S 3.5 (L) 3.6 - 5.2 09/16/2017 [facility] mmol/L 12:23 PM [facility] Sodium, S 143 135 - 145 09/16/2017 [facility] mmol/L 12:23 PM [facility] Chloride, S 102 98 - 107 09/16/2017 [facility] mmol/L 12:23 PM [facility] Bicarbonate, S 26 22 - 29 09/16/2017 [facility] mmol/L 12:23 PM [facility] Anion Gap 15 7 - 15 09/16/2017 [facility] 12:23 PM [facility] BUN (Blood Urea 22 (H) 6 - 21 09/16/2017 [facility] Nitrogen), S mg/dL 12:23 PM [facility] Creatinine 0.96 0.59 - 09/16/2017 [facility] 1.04 mg/dL 12:23 PM [facility] eGFR 59 (L) >=60 09/16/2017 [facility] Non-Black/Afric mL/min/BSA 12:23 PM [facility] LAB Comment: ----ADDITIONAL INFORMATION---- Estimated GFR calculated using the 2009 CKD_EPI creatinine equation. eGFR Black/ 68 >=60 mL/min/BSA 09/16/2017 12:[address] [facility] LAB Comment: ----ADDITIONAL INFORMATION---- Estimated GFR calculated using the 2009 CKD_EPI creatinine equation. Calcium, Total, S 9.4 8.9 - 10.1 mg/dL 09/16/2017 1 2:23 PM [facility] Glucose, S 113 70 - 140 mg/dL 09/16/2017 12:23 PM [facility] Specimen Anatomical Collection Method Collection Time Receive d Time (Source) Location / / Volume Laterality Blood (Blood, 09/16/2017 11:57 09/16/2017 Venous) AM [facility] [employer] [employer] [facility] 12:01 PM [facility] [employer] [facility] Sven Bansal M.D. LAB BLOOD ADD-ON Performing Organization Address City/State/ZIP Code Phon e Number [facility] [address] [place] [address] LAB PT (Prothrombin Time) with INR (09/16/2017 11:57 AM [facility] [employer] [employer]) P athologist Signature Prothrombin 9.9 8.8 - 11.9 09/16/2017 [facility] Time, P sec 12:12 PM [facility] INR 1.0 0.9 - 1.2 09/16/2017 [facility] 12:12 PM [facility] LAB Comment: Standard intensity warfarin therapeutic range: 2.0 to 3.0 High intensity warfarin therapeutic rang e: 2.5 to 3.5 Specimen Anatomical Collection Method Collection Time Receive d Time (Source) Location / / Volume Laterality Blood (Blood, 09/16/2017 11:57 09/16/2017 Venous) AM [facility] [employer] [employer] 12:01 PM [facility] [employer] [employer] Sven Bansal M.D. LAB BLOOD ADD-ON Performing Organization Address City/[facility] Phon e Number [address] [address] LAB (ABNORMAL) CBC without Differential (09/16/2017 11:57 AM [facility] [employer] [employer]) [facility] gist Method Time Signature Hemoglobin 11.7 11.6 - 09/16/2017 [facility] 15.0 g/dL 12:07 PM [facility] Hematocrit 36.7 35.5 - 09/16/2017 [facility] 44.9 % 12:07 PM [facility] Erythrocytes 3.85 (L) 3.92 - 09/16/2017 [facility] 5.13 12:07 PM [facility] x10(12)/L [facility] MCV 95.3 78.2 - 09/16/2017 [facility] 97.9 fL 12:07 PM [facility] RBC Distrib Width 13.4 12.2 - 09/16/2017 [facility] 16.1 % 12:07 PM [facility] Platelet Count 264 157 - 371 09/16/2017 [facility] x10(9)/L 12:07 PM [facility] Leukocytes 4.1 3.4 - 9.6 09/16/2017 [facility] x10(9)/L 12:07 PM [facility] Specimen Anatomical Collection Method Collection Time Receive d Time (Source) Location / / Volume Laterality Blood (Blood, 09/16/2017 11:57 09/16/2017 Venous) AM [facility] [employer] [employer] 12:01 PM [facility] [employer] [facility] [employer] [facility] Sven Bansal M.D. LAB BLOOD ADD-ON Performing Organization Address City/[facility]/ZIP [facility] Phon e Number [address] [address] LAB documented in this encounter Visit Diagnoses Diagnosis Hemorrhage Gastrointestinal - Primary documented in this encounter Administered Medications Inactive Administered Medications - up to 3 most recent administrations Medication Order MAR Action Action Date Dose Rate Site NaCl 0.9 % bolus 1,000 mL New Bag 09/16/2017 12:00 PM 1,000 mL 2000 mL/hr 1,000 mL, intravenous, at [facility] [employer] [employer] 2,000 mL/hr, Administer over 0.5 Hours, Once, On Thu09/16/17 at 1138, For 1 dose documented in this encounter Active and Recently Administered Medications Times are shown in [facility] [employer] [employer]. Scheduled Medication Order 09/14/2017 09/15/2017 09/16/2017 NaCl 0.9 % bolus 1,000 mL (COMPLETED) 1200 (New Bag - Provider: Kaykay Maza R.N.)[id number] (Stopped - Provider: Kaykay Maza R.N.) 1,000 mL, intravenous, at 2,000 mL/hr, A dminister over 0.5 Hours, Once, Thu09/16/17 at 1138, For 1 dose documented in this encounter Care Teams Hall Clerk Relationship Specialty Start Date End Date Chastity Davidson M.D. PCP - General 03/19/17 01/11/20 documented as of this encounter
--- OUTSIDE RECORDS SUMMARY | 2022-08-31 10:09 | XMS_ITS | Encounter Summary ---
:1945 Author Organization [facility] Address [address] [place] [address] Care Team Providers Name Role Phone Unavailable Primary Care Provider Unavailable Encounter Details Date Type Department Care Team Description 08/04/2016 Hospital Encounter HX [facility] Mick Clark M.D. 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 fexofenadine (for_ALLEGRA) Take 180 mg by 0 07/0910/12/2017 180 mg tablet mouth daily. ibuprofen Take 1 tablet by 0 11/13/2009 10/12/19 18 (for_ADVIL,MOTRIN) 600 mg mouth 3 (three) tablet times a day as needed. lisinopril Take 1 tablet by 0 07/09/2016 09/30/20 17 (for_PRINIVIL,ZESTRIL) 5 mouth daily. mg tablet documented as of this encounter H&P Notes Quin Sanders P.A.-C. - 08/04/2016 12:33 PM CDT [id number] REFERRING PROVIDER: Chastity Brink M.D. CHIEF COMPLAINT: Cyst on the dorsum of the left wrist. HISTORY OF PRESENT ILLNESS: Chris Rockwell is a 71-year-old, right-handed, female, presenting for evaluation and treatment of a cyst on the dorsal aspect of the left wrist. The patient states that she first noticed this approximately 4 months ago. She has noticed some enlargement of it over the past few months. She notes that she has never had any redness or swelling. She denies pain or issues with range of motion of the wrist. She denies paresthesias or weakness into the hand. She offers no other concerns. PAST MEDICAL HISTORY: 1. Hypertension. 2. GERD. 3. History of a tonsillectomy as a child. SOCIAL HISTORY: The patient is . She presents with her today. She is from [place], [place]. She is a nonsmoker. She quit smoking approximately 1 decade ago. CURRENT MEDICATIONS: Per the electronic medical record. 1. Albuterol CFC-free 90 mcg per inhalation. 2. Kika 24 Hour Allergy tablet. 3. Calcium 600+vitamin D. 4. Hydrochlorothiazide 25 mg. 5. Ibuprofen 800 mg. 6. Lisinopril 5 mg. 7. Multivitamin 8. Pantoprazole 20 mg. ALLERGIES: Gentamicin. Neosporin. Tobramycin. REVIEW OF SYSTEMS: Otherwise negative aside from which is mentioned in the history of present illness. VITAL SIGNS: Temperature 36.5 degrees Celsius, heart rate 68 beats per minute. Blood pressure 110/64. PHYSICAL EXAMINATION: GENERAL: Patient is a well-nourished, well-developed, female, in no apparent distress. SKIN: No suspicious rashes or lesions. HEENT: Normocephalic, atraumatic. NECK: No cervical range of motion restriction. LUNGS: Respirations are nonlabored. Clear to auscultation anteriorly and posteriorly bilaterally. HEART: Regular rate and rhythm without murmurs, gallops, or rubs. ABDOMEN: Soft and nondistended. EXTREMITIES: Warm and dry. Fingertips are pink and well perfused. MUSCULOSKELETAL: On the dorsum of the left wrist, there is a sizable ganglion cyst. It is soft and mobile. There is no surrounding erythema or edema. No other areas of deformity or atrophy. Range of motion of the extremities is unrestricted, and negative for pain provocation. Gait is nonantalgic and steady. NEUROLOGIC: Cranial nerves are grossly intact. Strength and sensation is full and symmetric throughout. PSYCH: Patient is alert and oriented x3. Conversation is appropriate in speed, volume and content. IMPRESSION/REPORT/PLAN: Left wrist dorsal ganglion cyst. We discussed the etiology, diagnosis, prognosis, and treatment options. Ms. Rockwell is interested in having this addressed surgically. We discussed the details of theprocedure including risks versus benefits of the same. Written consent was obtained. We will obtain some preoperative lab work today. Should these be within normal, we will proceed with an excision of left dorsal ganglion cyst. All the patient's questions and concerns were addressed to her satisfaction. She was encouraged to call or return should any additional concerns arise prior to our next visit. Quin Sanders P.A.-C./pos Electronically Signed By: QUIN SANDERS PA-C On: 08/12/2016 05:15 PM Source: [facility] MHSDOLBEYNONRADSYS Document Id: [id number] RITY RESEARCHER documented in this encounter Miscellaneous Notes Miscellaneous - Quin Sanders P.A.-C. - 08/04/2016 2:09 PM CDT Ambulatory Patient Summary [place] [address] [facility], [address] [place], [place] [id number] Visit Information Name: CHRIS ROCKWELL [facility] Number: [id number] Current Date: 08/04/2016 14:09:31 Physicians Attending Provider: JESUS RUELAS MD Primary Care Provider: CHASTITY BRINK MD CHRIS ROCKWELL has been given the following list of follow-up instructions, medication list, and patient education materials: Follow-up Instructions Your Medications Here is a list of your medications. It is important to take your medications as directed. Use a pillbox or chart to help remind you to take your medications. Please let your doctor or nurse know if you have problems taking your medications. Medication/Strength How to Take Indications/Special Instructions/Comments/Notes for Patient Medication Changes/Routing albuterol (albuterol CFC free 90 mcg/inh inhalation aerosol) 2 puff(s), Inhalation, every 4 hours asneeded for Shortness of breath / Wheezing calcium-vitamin D (Calcium 600+D) 1 tab, Oral, once a day fexofenadine (Kika 24 Hour Allergy) 180 mg, Oral, once a day hydrochlorothiazide (hydrochlorothiazide 25 mg oral tablet) 1 Tablet(s), Oral, once a day ibuprofen (ibuprofen 800 mg oral tablet) 1 Tablet(s), Oral, three times a day as needed for Pain Take with food lisinopril (lisinopril 5 mg oral tablet) 1 Tablet(s), Oral, once a day multivitamin (multivitamin) 1 tab, Oral, once a day pantoprazole (pantoprazole 20 mg oral delayed release tablet) 1 Tablet(s), Oral, once a day Stop Taking the Following Medications: Medication list as of 08-04-16 14:09 Attention: If you have any medications at home that are not on this list, DO NOT take them until youcontact your provider for clarification. Give a copy of your medication list to your primary care provider. Update your medication list any time medications or doses are changed and carry your medication list at all times in case of emergency. Electronically Signed By: QUIN SANDERS PA-C Signed On:04-AUG-2016 14:09:28 Your Allergies & Intolerances Substance Reaction Symptoms Category Comments gentamicin Drug tobramycin Drug Neosporin Drug Your Problem List Problem Status Onset Comments Benign hypertension Active Arthritis Active 3 Active Para 3 Active Family History of Malignant Neoplasm of Breast Active Family history of colon cancer Active Family history of Parkinson's disease Active Family history of lung cancer Active Family history of prostate cancer Active Family history of dementia Active GERD [Gastroesophageal reflux disease] Active 12/17/2011 Your Upcoming Appointments Date Time Location Provider 08/21/2016 08:45 Jesus Clark MD Attention: Contact your local Clinic if further appointment detail needed. Consider Using Patient Online Services Patient Online Services is a secure online and Mobile application that lets you: ?? View lab and test results ?? View portions of your medical record including clinical notes, immunizations and discharge summaries ?? Request an appointment or medication refill ?? Review your appointment schedule ?? Send secure messages to your care team Its easy to create an account if you dont have one. Go to [email or web address] and click on Create Your Account. Then, follow the directions to complete the online form. Youll be asked for your [facility] number which you can find at the top of this document. Your Goals/Additional instructions: Source: [facility] POWERCHART Document Id: [id number] Miscellaneous - Quin Sanders P.A.-C. - 08/04/2016 2:09 PM CDT Ambulatory Discharge Medication List [facility] [address], [address] [place], [place] [id number] Visit Information Name: CHRIS ROCKWELL [facility] Number: [id number] Current Date: 08/04/2016 14:09:30 Attending Provider: JESUS RUELAS MD Primary Care Provider: CHASTITY BRINK MD ESTEBAN ROCKWELLERINE has been given the following list of medications: Your Medications It is important to take your medications as directed. Use a pill box or chart to help remind you to take your medications. Please let your doctor or nurse know if you have problems taking your medications. Medication/Strength How to Take Indications/Special Instructions/Comments/Notes for Patient Medication Changes/Routing albuterol (albuterol CFC free 90 mcg/inh inhalation aerosol) 2 puff(s), Inhalation, every 4 hours asneeded for Shortness of breath / Wheezing calcium-vitamin D (Calcium 600+D) 1 tab, Oral, once a day fexofenadine (Kika 24 Hour Allergy) 180 mg, Oral, once a day hydrochlorothiazide (hydrochlorothiazide 25 mg oral tablet) 1 Tablet(s), Oral, once a day ibuprofen (ibuprofen 800 mg oral tablet) 1 Tablet(s), Oral, three times a day as needed for Pain Take with food lisinopril (lisinopril 5 mg oral tablet) 1 Tablet(s), Oral, once a day multivitamin (multivitamin) 1 tab, Oral, once a day pantoprazole (pantoprazole 20 mg oral delayed release tablet) 1 Tablet(s), Oral, once a day Stop Taking the Following Medications: Medication list as of 08-04-16 14:09 Attention: If you have any medications at home that are not on this list, DO NOT take them until youcontact your provider for clarification. Give a copy of your medication list to your primary care provider. Update your medication list any time medications or doses are changed and carry your medication list at all times in case of emergency. Electronically Signed By: QUIN SANDERS PA-C Signed On:04-AUG-2016 14:09:28 Additional Information: Source: [facility] POWERCHART Document Id: [id number] Miscellaneous - Zandra Heck, L.P.N. 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 Intake/History Entered On: 08/04/2016 12:48 CDT Performed On: 08/04/2016 12:45 CDT by EDSTROM, ZANDRA S PIPE ORGAN TECHNICIAN Intake Chief Complaint : new patient cyst on the top of the left hand Temperature Core : 36.5 DegC(Converted to: 97.7 DegF) Peripheral Pulse Rate : 68 /min Systolic Blood Pressure : 110 mmHg Diastolic Blood Pressure : 64 mmHg NIBP Mean : 79 mmHg ZANDRA HECK KELTON - 08/04/2016 12:45 CDT General Info Information Given By : Patient, Spouse Languages : Citizen Of [place] Is Patient Female and 13-50 no hysterectomy : No EDDIEBRUNOZANDRA GÓMEZ KELTON - 08/04/2016 12:45 CDT Subjective Pain Symptoms : No ROXYZANDRA KELTON - 08/04/2016 12:45 CDT Dependent Habits Exposure to Tobacco Smoke : Other: former smoker 2007 Smoking Status : Former smoker Tobacco 2A : Yes Tobacco Use/Currently Using : No Tobacco Use/Last 30 Days : No Tobacco Use/Last 12 months : No Tobacco Last Use/Year : 2007 ROXY ZANDRARUSS Crowley LPN - 08/04/2016 12:45 CDT Caffeine Use Grid Caffeine Use : Current Type : Chocolate, Coffee Frequency : Daily Amount : 2-3 EDDIEBRUNOZANDRA GÓMEZ Carline MELARA - 08/04/2016 12:45 CDT Recreational Drug Use Grid Drug Use : None ROXYZANDRA Carline MELARA - 08/04/2016 12:45 CDT Source: [email or web address] Document Id: [id number] CDT!31 documented in this encounter Plan of Treatment Not on filedocumented as of this encounter Procedures Procedure Name Priority Date/Time Associated Diagnosis Comme nts CBC WITH Routine 08/04/2016 1:39 PM Results f or this DIFFERENTIAL, B CDT procedure ar e in the results section. BASIC METABOLIC Routine 08/04/2016 1:39 PM Result s for this PANEL, S/P CDT procedure are i n the results section. documented in this encounter Results CBC with Differential (08/04/2016 1:39 PM CDT) P athologist Signature Leukocytes 7.5 3.5 - 10.5 POWERCHART X109L Erythrocytes 4.07 3.90 - 5.03 POWERCHART V1883H Hemoglobin 13.0 12.0 - 15.5 POWERCHART GDL Hematocrit 39.1 34.9 - 44.5 POWERCHART MCV 96.1 81.6 - 98.3 POWERCHART FL HX RDW 13.3 11.9 - 15.5 POWERCHART Platelet Count 319 150 - 450 POWERCHART X109L Specimen (Source) Anatomical Collection Method Collection Time Re ceived Time Location / / Volume Laterality Blood 08/04/2016 1:39 PM CDT Quin Sanders P.A.-C. LAB BLOOD ADD-ON Performing Organization Address City/State/ZIP Code Phon e Number POWERCHART (ABNORMAL) BMP (Basic Metabolic Panel) (08/04/2016 1:39 PM CDT) Analysis Performed At Patho logist Time Signature CO2 Total 31 (H) 22 - 29 POWERCHART MMOLL Glucose 63 (L) 70 - 140 POWERCHART MGDL BUN (Blood Urea 28 (H) 6 - 24 MGDL POWERCHART Nitrogen), S Creatinine 1.0 0.6 - 1.1 POWERCHART MGDL Calcium, Total, 9.6 8.8 - 10.3 POWERCHART S MGDL Anion Gap 13 7 - 15 [facility] POWERCHART Sodium, S 143 135 - 145 POWERCHART [facility] Potassium, S 4.0 3.5 - 5.1 POWERCHART [facility] Chloride, S 99 98 - 107 POWERCHART [facility] eGFR >60 >=60 [facility] POWERCHART Black/ HXeGFR (MDRD) 55 (L) >=60 [facility] POWERCHART Comment: Results are in mL/min/1.73m squared CKD Stage I: ? GFR > 90 CKD Stage II: ?GFR 60 to 89 CKD Stage III: ? GFR 30 to 59 CKD Stage IV: ? GFR 15 to 29 CKD Stage V: ?GFR < 15 or Dialysi s Specimen (Source) Anatomical Collection Method Collection Time Re ceived Time Location / / Volume Laterality Blood 08/04/2016 1:39 PM CDT Quin Sanders P.A.-C. LAB BLOOD ADD-ON Performing Organization Address City/State/ZIP Code Phon e Number POWERCHART documented in this encounter Visit Diagnoses Not on filedocumented in this encounter
--- OUTSIDE RECORDS SUMMARY | 2022-08-31 10:09 | XMS_ITS | Encounter Summary ---
:1945 Author Organization [facility] Address [address] [place] [address] Care Team Providers Name Role Phone Unavailable Primary Care Provider Unavailable Encounter Details Date Type Department Care Team Description 12/08/2014 Hospital Encounter HX [facility] Karlee Davidson M.D. 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 - 12/18/2014 7:56 PM CDT From: TIKI DAVIDSON MD To: TRISHA GUERIN; Sent: 12/18/2014 19:56:49 CDT I put in order for x-ray shoulder in 6 months Source: [facility] [employer] Document Id: [id number] Miscellnatalia - Tiki Davidson M.D. - 12/18/2014 7:55 PM CDT From: TIKI DAVIDSON MD Sent: 12/18/2014 19:55:56 CDT gave results. humeral xr in 6 months Source: [facility] [employer] Document Id: [id number] Miscellaneous - Tiki Davidson M.D. - 12/12/2014 5:04 PM CDT From: TIKI DAVIDSON MD Sent: 12/12/2014 17:04:12 CDT not in for results Source: [facility] BringItCHART Document Id: [id number] Miscellaneous - Tiki Davidson M.D. - 12/11/2014 4:20 PM CDT From: TIKI DAVIDSON MD Sent: 12/11/2014 16:20:21 CDT not in for results Source: [facility] BringItCHART Document Id: [id number] Miscellaneous - Conversion, Historical Provider Ser - 12/08/2014 11:59 PM PASSENGER COACH DRIVER Coding Summary-Paper Based CODING DATE: 12/13/2014 FINAL MA [place] [facility] STATUS: * Discharged to Home or Self Care PAYOR: Medicare Advantage ADMIT DX: REASON FOR VISIT DX: FINAL DX: PRINCIPAL: 733.99 Other Disorders of Bone and Cartilage SECONDARY: PROCEDURES DOCTOR NAME DATE NOTE: The code number assigned matches the documented diagnosis and / or procedure in the patient's chart. However, the narrative phrase printed from the coding software may appear abbreviated, or result in slightly different terminology. 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 documented in this encounter Results DX Shoulder Right 2+ Views (12/08/2014 10:17 AM PASSENGER COACH DRIVER) Anatomical Region Laterality Modality Upper Extremity, Shoulder Right Radiographic I maging Specimen (Source) Anatomical Collection Method Collection Time Re ceived Time Location / / Volume Laterality 12/08/2014 10:17 AM PASSENGER COACH DRIVER Addenda Addendum by ProviderErmias M.D. 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 XR Shoulder Right 2 or more vie ws Clinical history: rt. arm pain, scleroti c lesion on humeral xray Comparison: 12/04/2014 Findings: There is mild degenerative tj nge of acromioclavicular joint. The right upper thorax is within normal limits. The area of sclerosis is seen within the greater tub erosity and proximal humerus and unchanged compared to previous. Ther e are no aggressive features noted. The proximal humerus is otherwise intact and well aligned with the glenoid. The humeral acromial interv al is within normal limits. There is mild degenerative change of the glenoid and the inferior acromial surface. Impression: Area of sclerosis in the hum eral head appears to represent subchondral change in the grea ter tuberosity. A followup radiograph in 6 months could be obtained to document stability if history of cancer. Procedure Note Len Diaz M.D. / Provider, Kumar ulloa M.D. - 02/11/2017 Exam: XR Shoulder Right 2 or more views Clinical history: rt. arm pain, scleroti c lesion on humeral xray Comparison: 12/04/2014 Findings: There is mild degenerative tj nge of acromioclavicular joint. The right upper thorax is within normal limits. The area of sclerosis is seen within the greater tub erosity and proximal humerus and unchanged compared to previous. Ther e are no aggressive features noted. The proximal humerus is otherwise intact and well aligned with the glenoid. The humeral acromial interv al is within normal limits. There is mild degenerative change of the glenoid and the inferior acromial surface. Impression: Area of sclerosis in the hum eral head appears to represent subchondral change in the grea ter tuberosity. A followup radiograph in 6 months could be obtained to document stability if history of cancer. Mira Linares R.T.(R)(CT), R.T.(R) IMG DIAGNOSTIC IMAG ING PROCEDURES documented in this encounter Visit Diagnoses Not on filedocumented in this encounter
--- OUTSIDE RECORDS SUMMARY | 2022-08-31 10:09 | XMS_ITS | Encounter Summary ---
:1945 Author Organization [facility] Address [address] [place] [address] Care Team Providers Name Role Phone Unavailable Primary Care Provider Unavailable Encounter Details Date Type Department Care Team Description 07/09/2016 Hospital Encounter [facility] Tiki Paige M.D. 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 - 07/09/2016 2:00 PM CDT FM-LE CHIEF COMPLAINT/REASON FOR VISIT A 71-year-old female who was seen in Urgent Care for bronchitis and is following up after that. She does have continuous nasal drip. We suggested possibly Kika might help. She was given some Advair and albuterol, which she has not used since June 20. They started her on 60 mg of prednisone. She took it for five days. The last day she said she felt weak. She feels much better, feels like she is pretty much over the bronchitis. She says she is drinking plenty of fluids. She does not feel lightheaded, but her blood pressure is pretty low today. In Urgent Care her systolic blood pressure was 100. She has lost weight and we are thinking maybe her lisinopril was a little too high. PAST MEDICAL/SURGICAL HISTORY Arthropathy. Hypertension. 3, para 3. Reflux esophagitis. She had an endometrial biopsy in 2012. Pap smear in 2010 Colonoscopy in 2005. Closed fracture of the arm in 1954. Tonsillectomy/adenoidectomy in 1949. Fracture of hand. SOCIAL HISTORY She is not a smoker. She quit in 2007. She drinks chocolate and coffee about 2-3 cups daily. FAMILY HISTORY Mother had breast cancer. Father had colon cancer. Grandfather had prostate cancer and lung cancer. Grandmother had dementia. Aunt had Parkinson's. MEDICATIONS Albuterol, like I said she has not been using it. Kika 24-hour 180 mg daily, as mentioned, we suggested she start using that. Calcium 600 plus D 1 tab daily. Hydrochlorothiazide 25 mg 1 tab daily. Ibuprofen 800 mg as needed. Lisinopril 10 mg. We are going to decrease that to 5 mg. Multivitamin daily. Pantoprazole 20 mg daily. ALLERGIES Gentamycin, Neosporin and Tobramycin. SYSTEMS REVIEW See HPI. She has a cyst on her wrist that she wants evaluated and removed. The remainder of the review of systems negative. PHYSICAL EXAMINATION VITAL SIGNS: Blood pressure 84/62, pulse 100, respirations 20, temperature 36.7, weight 88.8 kg, height 159.4 cm. CHEST: Clear to auscultation bilaterally. CARDIOVASCULAR: Regular rate and rhythm, no murmur. EXTREMITIES: On her left wrist, on the dorsum, is a 15 x 10 mm moveable, hard lump, kind of like there are 2 lumps joined. She says it is growing. IMPRESSION/REPORT/PLAN 1. Bronchitis. 2. Skin lump. PLAN: We are going to have her see plastics, hand, to get the lump off. We are going to decrease herlisinopril from 10 mg to 5 mg. Congratulated her on weight loss. It has been about 20 pounds. Returnas needed. ADMINISTRATIVE BILLING Total time spent was 20 minutes with 17 minutes in counselling and coordination of care. Tiki Davidson M.D./pos Electronically Signed By: TIKI DAVIDSON MD On: 07/29/2016 12:06 PM Source: [facility] MHSDOLBEYNONRADSYS Document Id: [id number] documented in this encounter Nursing Notes Tiki Davidson M.D. - 07/09/2016 2:57 PM CDT Ambulatory Patient Education The following Patient Education Materials have been given to the patient: Patient Education Materials: Ambulatory ASTHMA, Acute (Adult) Ambulatory Asthma [Adult] Asthma is a disease where the small air passages within the lung go into spasm and restrict the flowof air. Inflammation and swelling of the airways cause further restriction. During an acute asthma attack, these factors cause difficulty breathing, wheezing, cough and chest tightness. An asthma attack can be triggered by many things. Common triggers include the common cold, bronchitis, pneumonia, irritants such as smoke or pullutants in the air, emotional upset and heavy exercise. In many adults with asthma, allergies to dust, mold, pollen and animal dander can cause an asthma attack. Skipping doses of daily asthma medicine can also bring on an asthma attack. Asthma can be controlled with proper medicines and decreased exposure to known allergens. Home Care: ?? Take prescribed medicine exactly at the times advised. If you have a hand- held inhaler or aerosolbreathing medicine, do not use it more than once every four hours, unless told to do so. (If you need this medicine more than every four hours, you may need to return to the Emergency Room.) If prescribed an antibiotic or prednisone, take all of the medicine even if you are feeling better after a few days. ?? Do not smoke. Avoid being exposed to the smoke of others. ?? Some persons with asthma have worsening of their symptoms when they take aspirin and non-steroidal medicines like ibuprofen (Motrin, Advil) and naproxen (Aleve, Naprosyn). Talk to your doctor if youthink this may apply to you. Acetaminophen (Tylenol) should be safe to use. Follow Up with your doctor, or as advised by our staff. Always bring all of your current medicines with you for your doctor to see. If you do not already have one, talk to your doctor about developing a personalized Asthma Action Plan. [NOTE: A pneumococcal vaccine and yearly flu shot (every fall) are recommended. Ask your doctor about this.] Get Prompt Medical Attention if any of the following occur: ?? Increased wheezing or shortness of breath ?? Need to use your inhalers more often than usual without relief ?? Fever of 100.4??F (38??C) or higher, or as directed by your healthcare provider ?? Coughing up lots of dark-colored or bloody sputum (mucus) ?? Chest pain with each breath ?? You do not start to improve within 24 hours Call 911 If Any Of The Following Occur : ?? Trouble walking or talking because of shortness of breath ?? If you use a peak flow meter and you are still in the red zone (less than 50 percent) 15 minutes after using inhaler medication ?? Lips or fingernails turning mathews or blue ?? [id number] [facility], [address] [place] [address], [place] [address]. All rights reserved. This information is not intended as a substitute for professional medical care. Always follow your healthcare professional's instructions. This document has images extracted. Please consider using [employer] for all your patient education needs. Source: [facility] POWERCHART Document Id: [id number] documented in this encounter Miscellaneous Notes Miscellaneous - Tiki Davidson M.D. - 07/09/2016 2:57 PM CDT Ambulatory Patient Summary [place] - [address] [id number] Visit Information Name: CHRIS ROCKWELL [facility] Number: [id number] Current Date: 07/09/2016 14:57:46 Physicians Attending Provider: TIKI DVAIDSON MD Primary Care Provider: TIKI DAVIDSON MD CHRIS ROCKWELL has been given the [...] tablet) 1 Tablet(s), Oral, once a day This is a CHANGE Routed to [address] [address] multivitamin (multivitamin) 1 tab, Oral, once a day pantoprazole (pantoprazole 20 mg oral delayed release tablet) 1 Tablet(s), Oral, once a day Stop Taking the Following Medications: Medication list as of 07-09-16 14:57 Attention: If you have any medications at home that are not on this list, DO NOT take them until youcontact your provider for clarification. Give a copy of your medication list to your primary care provider. Update your medication list any time medications or doses are changed and carry your medication list at all times in case of emergency. Electronically Signed By: TIKI DAVIDSON MD Signed On:09-JUL-2016 14:57:28 Your Allergies & Intolerances Substance Reaction Symptoms [...] Your Upcoming Appointments Date Time Location Provider No Appointments found Attention: Contact your local Clinic if further appointment detail needed. Asthma [Adult] Asthma is a disease where the small air passages within the lung go into spasm and restrict the flowof air. Inflammation and swelling of the airways cause further restriction. During an acute asthma attack, these factors cause difficulty breathing, wheezing, cough and chest tightness. An asthma attack can be triggered by many things. Common triggers include the common cold, bronchitis, pneumonia, irritants such as smoke or pullutants in the air, emotional upset and heavy exercise. In many adults with asthma, allergies to dust, mold, pollen and animal dander can cause an asthma attack. Skipping doses of daily asthma medicine can also bring on an asthma attack. Asthma can be controlled with proper medicines and decreased exposure to known allergens. Home Care: ?? Take prescribed medicine exactly at the times advised. If you have a hand- held inhaler or aerosolbreathing medicine, do not use it more than once every four hours, unless told to do so. (If you need this medicine more than every four hours, you may need to return to the Emergency Room.) If prescribed an antibiotic or prednisone, take all of the medicine even if you are feeling better after a few days. ?? Do not smoke. Avoid being exposed to the smoke of others. ?? Some persons with asthma have worsening of their symptoms when they take aspirin and non-steroidal medicines like ibuprofen (Motrin, Advil) and naproxen (Aleve, Naprosyn). Talk to your doctor if youthink this may apply to you. Acetaminophen (Tylenol) should be safe to use. Follow Up with your doctor, or as advised by our staff. Always bring all of your current medicines with you for your doctor to see. If you do not already have one, talk to your doctor about developing a personalized Asthma Action Plan. [NOTE: A pneumococcal vaccine and yearly flu shot (every fall) are recommended. Ask your doctor about this.] Get Prompt Medical Attention if any of the following occur: ?? Increased wheezing or shortness of breath ?? Need to use your inhalers more often than usual without relief ?? Fever of 100.4?F (38?C) or higher, or as directed by your healthcare provider ?? Coughing up lots of dark-colored or bloody sputum (mucus) ?? Chest pain with each breath ?? You do not start to improve within 24 hours Call 911 If Any Of The Following Occur : ?? Trouble walking or talking because of shortness of breath ?? If you use a peak flow meter and you are still in the red zone (less than 50 percent) 15 minutes after using inhaler medication ?? Lips or fingernails turning mathews or blue ?? 1155-7129 [facility], [address] [place] [address], [place] [address]. All rights reserved. This information is not intended as a substitute for professional medical care. Always follow your healthcare professional's instructions. Consider Using Patient Online Services Patient Online [...] if you dont have one. Go to [email or web address] and click on Create Your Account. Then, follow the directions to complete the online form. Youll be asked for your [facility] number which you can find at the top of this document. Your Goals/Additional instructions: This document has images extracted. Please consider using [employer] for all your patient education needs. Source: [facility] POWERCHART Document Id: [id number] Miscellaneous - Tiki Davidson M.D. - 07/09/2016 2:57 PM CDT Ambulatory Discharge Medication List [place] - [address] [id number] Visit Information Name: ESTEBAN ROCKWELLERINE [facility] Number: [id number] Current Date: 07/09/2016 14:57:46 Attending Provider: TIKI DAVIDSON MD Primary Care Provider: TIKI DAVIDSON MD ESTEBAN ROCKWELLERINE has been given the [...] tablet) 1 Tablet(s), Oral, once a day This is a CHANGE Routed to [address] [address] multivitamin (multivitamin) 1 tab, Oral, once a day pantoprazole (pantoprazole 20 mg oral delayed release tablet) 1 Tablet(s), Oral, once a day Stop Taking the Following Medications: Medication list as of 07-09-16 14:57 Attention: If you have any medications at home that are not on this list, DO NOT take them until youcontact your provider for clarification. Give a copy of your medication list to your primary care provider. Update your medication list any time medications or doses are changed and carry your medication list at all times in case of emergency. Electronically Signed By: TIKI DAVIDSON MD Signed On:09-JUL-2016 14:57:28 Additional Information: Yes - . Source: [facility] POWERCHART Document Id: [id number] Miscellaneous - Chapo Fajardo L.PLaN. 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 Entered On: 07/09/2016 14:08 CDT Performed On: 07/09/2016 14:06 CDT by CHAPO FAJARDO LPN Intake Chief Complaint : follow up UCk, bronchitis Temperature Core : 36.7 DegC(Converted to: 98.1 DegF) Peripheral Pulse Rate : 100 /min Respiratory Rate : 20 /min Heart Rhythm : Regular Systolic Blood Pressure : 84 mmHg (<LLOW) Diastolic Blood Pressure : 62 mmHg NIBP Mean : 69 mmHg BP Location : Left upper extremity Blood Pressure Cuff Size : Large Height : 159.4 cm(Converted to: 5 ft 3 inch(es), 63 inch(es)) Actual Weight : 88.8 kg(Converted to: 195 lb 12 oz) Weight Source : Standing scale Dosing Weight Clinic : 88.8 kg Clinic BSA : 1.98 Body Mass Index : 34.95 kg/m2 CHAPO FAJARDO LPN - 07/09/2016 14:06 CDT General Info Information Given By : Patient Preferred Communication Mode : Verbal Languages : Colombian Is Patient Female and 13-50 no hysterectomy : No FAJARDOCHAPO ROBLERO KEN MELARA - 07/09/2016 14:06 CDT Subjective Pain Symptoms : No TANA CHAPO ROGERS LPN - 07/09/2016 14:06 CDT Dependent Habits Exposure to Tobacco Smoke : Other: former smoker 2007 Smoking Status : Former smoker Tobacco 2A : Yes Tobacco Use/Currently Using : No Tobacco Use/Last 30 Days : No Tobacco Use/Last 12 months : No Tobacco Last Use/Year : 2007 CHAPO FAJARDO LPN - 07/09/2016 14:06 CDT Caffeine Use Grid Caffeine Use : Current Type : Chocolate, Coffee Frequency : Daily Amount : 2-3 CHAPO FAJARDO LPN - 07/09/2016 14:06 CDT Recreational Drug Use Grid Drug Use : None CHAPO FAJARDO LPN - 07/09/2016 14:06 CDT Source: [employer] Document Id: [id number] CDT!42 documented in this encounter Plan of Treatment Not on filedocumented as of this encounter Visit Diagnoses Not on filedocumented in this encounter
--- OUTSIDE RECORDS SUMMARY | 2022-08-31 10:09 | XMS_ITS | Encounter Summary ---
:1945 Author Organization [facility] Address [address] [place] [address] Care Team Providers Name Role Phone Unavailable Primary Care Provider Unavailable Encounter Details Date Type Department Care Team Description 05/25/2013 [facility] Clement Lunsford M.[facility] 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 - 05/25/2013 2:06 PM CDT [id number] CHIEF COMPLAINT/REASON FOR VISIT Follow up of simple endometrial hyperplasia. HISTORY OF PRESENT ILLNESS The patient is a 68-year-old, postmenopausal female, who was previously evaluated for postmenopausalvaginal bleeding. She had an endometrial biopsy that showed simple endometrial hyperplasia without atypia. She since that time has been on approximately 6 months of Provera. She reports taking this well without any difficulty or side effects identified. She denies any sleepiness. She denies any headaches. VITAL SIGNS Pulse is 80, blood pressure 112/74, weight is 93.7 kg. PHYSICAL EXAMINATION GENERAL: She is a well-developed, well-nourished female, in no acute distress. ABDOMEN: Obese, soft, nontender. EXTREMITIES: Warm and dry. PELVIC EXAM: Normal external genitalia with no masses or lesions. On speculum examination, vaginal briseno are pink. There is no abnormal discharge. The cervix is normal appearing. PROCEDURE: The risks, benefits, indications and alternatives of repeat endometrial biopsy are discussed in detail. Informed consent was obtained. With the speculum in her vagina the cervix is swabbed with Betadine. The Pipelle was placed through the cervix into the uterus to a depth of 7 cm. A small amount of tissue is obtained with 2 passes of the endometrial biopsy Pipelle. The Pipelle and speculumare removed. The patient overall tolerated the procedure well. IMPRESSION/REPORT/PLAN Simple endometrial hyperplasia without atypia. PLAN: I recommended further management be based on the results of the biopsy from today. She will benotified of the results when they become available. All of her questions were answered today to the best of my ability. Abdirahman Jain M.D./pos Electronically Signed By: ABDIRAHMAN JAIN MD On: 06/08/2013 02:05 PM Source: [facility] MHSDOLBEYNONRADSYS Document Id: [id number] documented in this encounter Miscellaneous Notes Miscellaneous - Abdirahman Jain M.D. - 06/24/2013 11:59 AM CDT General Message Document Contains Addenda Addendum by CHAPO TILLEY LPN on 24 June 2013 13:20:58 CDT Pt given telephone number of Lora Allen in [facility] and pt encouraged to call me if she has any problems/questions From: ABDIRAHMAN JAIN MD To: CHAPO TILLEY LPN; Sent: 06/24/2013 11:59:52 CDT Subject: General Message Actions: Notify patient of results Please send Chris a copy of her recent endometrial biopsy pathology report. I discussed it with her on the phone but she would like a paper copy. Source: [facility] POWERCHART Document Id: [id number] Electronically signed by Conversion, [facility] Shipping And Receiving Associate [id number] at 03/04/2017 3:20 AM CDT Miscellaneous - Angela Biggs R.N. - 06/24/2013 11:50 AM CDT Pathology report Document Contains Addenda Addendum by ELIZABETH SILVERIO on 24 June 2013 12:19:35 CDT From: ELIZABETH SILVERIO ([facility] Clinic Referral Team) To: [place] Specialty Obstetrics/Gynecology Nurse; Sent: 06/24/2013 12:19:35 CDT Subject: RE: Pathology report THANK YOU FOR THIS MESSAGE. THE PATH REPORT FROM 05-25-2013 HAS BEEN MAILED TO HER RESIDENCE. IF YOU NEED ANYTHING, PLEASE ADVISE. ELIZABETH SILVERIO From: ANGELA BIGGS RN ([place] Specialty Obstetrics/Gynecology Nurse) To: [facility] Referral Team; Sent: 06/24/2013 11:50:30 CDT Subject: Pathology report Please send Chris a copy of her pathology report from 05-25-[address] Jain's request. Please let me know if you need any other information. 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 Entered On: 05/25/2013 14:31 CDT Performed On: 05/25/2013 14:28 CDT by CHAPO TILLEY KELTON Intake Chief Complaint : follow up on hyperplasia Peripheral Pulse Rate : 80 /min Systolic Blood Pressure : 112 mmHg Diastolic Blood Pressure : 74 mmHg NIBP Mean : 87 mmHg Oxygen Therapy : Room air Actual Weight : 93.7 kg(Converted to: 206 lb 9 oz) Weight Source : Standing scale Dosing Weight Clinic : 93.7 kg CHAPO TILLEY KELTON - 05/25/2013 14:28 CDT General Info Information Given By : Patient Preferred Communication Mode : Verbal Languages : Citizen Of [place] CHAPO TILLEY KELTON - 05/25/2013 14:28 CDT Subjective Pain Symptoms : No CHAPO TILLEY KELTON - 05/25/2013 14:28 CDT Dependent Habits Tobacco Use/Currently Using : No Smoking Status : Former smoker Alcohol Use : Yes CHAPO TILLEY KELTON - 05/25/2013 14:28 CDT Caffeine Use Grid Caffeine Use : Current Type : Chocolate, Coffee Frequency : Daily Amount : 2-3 CHAPO TILLEY KELTON - 05/25/2013 14:28 CDT Recreational Drug Use Grid Drug Use : None CHAPO TILLEY KELTON - 05/25/2013 14:28 CDT Source: [facility] [employer] Document Id: [id number] CDT!30 documented in this encounter Plan of Treatment Not on filedocumented as of this encounter Procedures Procedure Name Priority Date/Time Associated Diagnosis Comme nts SURGICAL PATHOLOGY Routine 05/25/2013 12:26 PM Re sults for this CDT procedure are i n the results section. documented in this encounter Results Pathology Surgical Pathology (05/25/2013 12:26 PM CDT) Specimen (Source) Anatomical Collection Method Collection Time Re ceived Time Location / / Volume Laterality 05/25/2013 12:26 PM CDT Narrative [facility] - 05/27/2013 11:24 AM CDT [facility] [place] [address] [address] Patient Name: CHRIS ROCKWELL Patient ID #: [id number] Collected: 05/25/2013 Address: [facility]/State/Zip: [address] [place], [place] ??[phone] Received: Reported: 05/26/2013 05/27/2013 Soc. Sec. #: [id number] ?? DO B/Age/Sex 1945 (Age: 68) ??F Physician(s): MIKEL JAIN MD Copy To: [facility] [place] ??[id number] [facility], ??[place] ??[address] SURGICAL PATHOLOGY REPORT FINAL DIAGNOSIS: ENDOMETRIUM, BIOPSY: --- POLYPOID FRAGMENT OF ENDOMETRIUM WIT H A SIMPLE HYPERPLASTIC GLAND PATTERN WITHOUT CYTOLOGIC ATYPIA. --- ADDITIONAL ACCOMPANYING FRAGMENTS OF FLATTER ENDOMETRIUM WITH SIMPLE HYPERPLASTIC GLAND PATTERN WITH N O EVIDENCE OF ATYPIA. Signed Copy in Chart pap/05/27/2013 NEY CARUSO M.D. SPECIMEN(S) RECEIVED: ENDOMETRIAL BIOPSY CLINICAL HISTORY: HISTORY OF SIMPLE ENDOMETRIAL HYPERPLASI A GROSS DESCRIPTION: Consists of folded corbett tissue to a loose 1.5 cm diameter. ESB, one cassette. ([id number]) DDG/KEANU/05/26/2013 MICROSCOPIC DESCRIPTION: Reviewed by Ney Caruso M.D.; Path ologist DMS/05/27/2013 Abdirahman Jani M.D. LAB SURG PATH ORDERABLES Performing Organization Address City/[facility]/ZIP Code Phon e Number [facility] documented in this encounter Visit Diagnoses Not on filedocumented in this encounter
--- OUTSIDE RECORDS SUMMARY | 2022-08-31 10:09 | XMS_ITS | Encounter Summary ---
:1945 Author Organization [facility] Address [address] [place] [address] Care Team Providers Name Role Phone Unavailable Primary Care Provider Unavailable Encounter Details Date Type Department Care Team Description 07/24/2014 Hospital Encounter HX [facility] Velasquez Brink M.D. 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 - 07/24/2014 7:48 PM CDT Normal Results Letter 24 July 2014 CHRIS PERSON [id number] [facility] [id number] Dear CHRIS PERSON, I am pleased to report that your results from the following diagnostic test(s) are normal. Please follow up with us as we discussed during your visit or sooner if you have any concerns. If you have questions or concerns, please do not hesitate to call our office. Result Name Current Result Previous Result Normal Range Potassium Lvl (mmol/L) 3.7 07/24/2014 3.7 12/15/2013 3.5 - 5.1 Sincerely, TIKI BRINK [address] [place] [address] Electronic Signature Electronically Signed By: TIKI BRINK MD On: 24 July 2014 This document has images extracted. Source: [facility] [employer] LabsCHART Document Id: [id number] documented in this encounter Plan of Treatment Not on filedocumented as of this encounter Procedures Procedure Name Priority Date/Time Associated Diagnosis Comme nts POTASSIUM, S/P Routine 07/24/2014 9:41 AM Results for this CDT procedure are i n the results section . documented in this encounter Results Potassium (07/24/2014 9:41 AM CDT) P athologist Signature Potassium, S 3.7 3.5 - 5.1 POWERCHART MMOLL Specimen (Source) Anatomical Collection Method Collection Time Re ceived Time Location / / Volume Laterality Blood 07/24/2014 9:41 AM CDT Tiki Brink M.D. LAB BLOOD ADD-ON Performing Organization Address City/State/ZIP Code Phon e Number POWERCHART documented in this encounter Visit Diagnoses Not on filedocumented in this encounter
--- OUTSIDE RECORDS SUMMARY | 2022-08-31 10:09 | XMS_ITS | Encounter Summary ---
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 ORAL) multivitamin capsule Take by mouth 0 11/13/2009 daily. albuterol sulfate 90 Inhale 2 puffs 0 06/13/2016 10/12/2017 mcg/actuation aerosol every 4 (four) powdr breath activated hours as needed. ibuprofen Take 1 tablet by 0 11/13/2009 10/12/19 18 (for_ADVIL,MOTRIN) 600 mg mouth 3 (three) tablet times a day as needed. documented as of this encounter Progress Notes Moriah Sherwood P.A.-C. - 06/20/2016 10:32 AM CDT [id number] CHIEF COMPLAINT/REASON FOR VISIT Productive cough on and off x2 months. HISTORY OF PRESENT ILLNESS The patient is a 71-year-old female who states she has had a productive cough off and on for approximately 2 months which is increased over the last month. She states it is worse at night particularly over the last 2 to 3 days. She states she has had wheezing at times. Her productive cough the sputum is clear. The patient states she does have a history of wheezing. She has been using albuterol regularly. She has also taken Benadryl at night which has helped somewhat with her symptoms. PAST MEDICAL/SURGICAL HISTORY Reviewed in EMR. MEDICATIONS Reviewed, reconciled in EMR. ALLERGIES Reviewed in the EMR. PHYSICAL EXAMINATION GENERAL: Patient well developed, well-nourished female, pleasant and well-appearing. VITAL SIGNS: Temperature is 36.5 degrees Celsius, pulse rate is 80 and regular, respiration 18 and regular. Blood pressure 100/70, SpO2 is 97% on room air. Weight is 88.4 kg. HEENT: Head is normocephalic, atraumatic. Eyes: Pupils are equal, round, and reactive to light. Conjunctivae are clear. Ears: The patient's TMs are intact, there is no erythema. They are sharp with cone of light. Mouth: Mucous membranes are moist. Throat has no erythema, edema or exudates. LUNGS: Mildly wheezy throughout. There is no rales, and no rhonchi. HEART: Regular rate and rhythm. No murmurs heard. CLINICAL COURSE: The patient was treated with a DuoNeb and post treatment her wheezing was significantly decreased. DIAGNOSTICS: Chest X-ray: No acute disease. No Pulmonary Edema. No interstitial or airspace disease identified. IMPRESSION/REPORT/PLAN Asthma exacerbation. PLAN: The patient is to increase her albuterol usage to every 4 hours. In addition, the patient was prescribed Advair to be used as directed. The patient is also to start taking a seasonal allergy medicine. Recommended Kika to be taken daily. The patient continued to take Benadryl as needed at nighttime. In addition, the patient was placed on prednisone 60 mg to be taken daily for 7 days. She was urged to make an appointment with her family practice doctor for re-evaluation as well as a management plan for her symptoms. The patient is to return to Urgent Care or ER if she has any new or worsening symptoms. Moriah Sherwood P.A.-C./pos Electronically Signed By: MORIAH SHERWOOD PA-C On: 06/24/2016 09:19 AM Modified by and Electronically Signed by: MORIAH SHERWOOD PA-C On: 06/24/2016 09:15 AM Source: [facility] MHSDOLBEYNONRADSYS Document Id: [id number] documented in this encounter Nursing Notes Moriah Sherwood P.A.-C. - 06/20/2016 12:54 PM CDT Ambulatory Patient Education The following Patient Education Materials have been given to the patient: Patient Education Materials: Pulmonology Acute Bronchitis Pulmonology Acute Bronchitis Your health care provider has told you that you have acute bronchitis. Bronchitis is infection or inflammation of the bronchial tubes (airways in the lungs). Normally, air moves easily in and out of the airways. Bronchitis narrows the airways, making it harder for air to flow in and out of the lungs. This causes symptoms such as shortness of breath, coughing, and wheezing. Bronchitis can be acute or chronic. Acute means the condition comes on quickly and goes away in a short time. Chronic means a condition lasts a long time and often comes back. Read on to learn more about acute bronchitis. What Causes Acute Bronchitis? Acute bronchitis almost always starts as a viral respiratory infection, such as a cold or the flu. Certain factors make it more likely for a cold or flu to turn into bronchitis. These include being very young or very old or having a heart or lung problem. Cigarette smoking also makes bronchitis more likely. When bronchitis develops, the airways become swollen. The airways may also become infected with bacteria. This is known as a secondary infection. Diagnosing Acute Bronchitis Your health care provider will examine you and ask about your symptoms and health history. You may also have a sputum culture to test the fluid in your lungs. Chest X-rays may be done to look for infection in the lungs. Treating Acute Bronchitis Bronchitis usually clears up as the cold or flu goes away. You can help feel better faster by doing the following: ?? Take medication as directed. You may be told to take ibuprofen or other bjwp-evp-aljnjtl medications. These help relieve inflammation in your bronchial tubes. Your doctor may prescribe an inhaler tohelp open up the bronchial tubes. If you have a bacterial infection, you may be prescribed antibiotics. If so, take all of this medication as directed until it is gone, even if you feel better. ?? Drink plenty of fluids, such as water, juice, or warm soup. Fluids loosen mucus so that you can cough it up. This helps you breathe more easily. Fluids also prevent dehydration. ?? Make sure you get plenty of rest. ?? Do not smoke. Do not allow anyone else to smoke in your home. Recovery and Follow-Up Follow up with your doctor as you are told. You will likely feel better in a week or two. But a dry cough can linger beyond that time. Let your doctor know if you still have symptoms (other than a dry cough) after 2 weeks. If youre prone to getting bronchial infections, let your doctor know. And take steps to protect yourself from future infections. These steps include stopping smoking and avoiding tobacco smoke, washing your hands often, and getting a yearly flu shot. When to Call the Doctor Call the doctor if you have any of the following: Fever of 100.4??F (38.0??C) higher Symptoms that get worse, or new symptoms Trouble breathing Symptoms that dont start to improve within a week, or within 3 days of taking antibiotics ?? [id number] [facility], [address] [place] [address], [place] [address]. All rights reserved. This information is not intended as a substitute for professional medical care. Always follow your healthcare professional's instructions. This document has images extracted. Please consider using [employer] for all your patient education needs. Source: [facility] POWERCHART Document Id: [id number] Moriah Sherwood P.A.-C. - 06/20/2016 12:49 PM CDT Ambulatory Patient Education The following Patient Education Materials have been given to the patient: Patient Education Materials: Source: [facility] POWERCHART Document Id: [id number] documented in this encounter Miscellaneous Notes Miscellaneous - Moriah Sherwood P.A.-C. - 06/20/2016 12:54 PM CDT Ambulatory Patient Summary [place] - [address] [phone] Visit Information Name: CHRIS ROCKWELL [facility] Number: [id number] Current Date: 06/20/2016 12:54:08 Physicians Attending Provider: MORIAH SHERWOOD PA-C Primary Care Provider: TIKI BRINK MD CHRIS ROCKWELL has been given the following list of follow-up instructions, medication list, and patient education materials: Follow-up Instructions With: Address: When: Follow up with your usual provider In 7 days 06/27/2016, only if needed Comments: sooner or return to Urgent Care if symptoms worsen or persist. Your Medications Here is a list of [...] tab, Oral, once a day fexofenadine (Kika 180 mg oral tablet) 1 Tablet(s), Oral, once a day New fluticasone-salmeterol (Advair Diskus 100 mcg-50 mcg inhalation powder) 1 puff(s), Inhalation, two times a day New Routed to Printer hydrochlorothiazide (hydrochlorothiazide 25 mg oral tablet) 1 Tablet(s), Oral, once a day ibuprofen (ibuprofen 800 mg oral tablet) 1 Tablet(s), Oral, three times a day as needed for Pain Take with food lisinopril (lisinopril 10 mg oral tablet) 1 Tablet(s), Oral, once a day multivitamin (multivitamin) 1 tab, Oral, once a day pantoprazole (pantoprazole 20 mg oral delayed release tablet) 1 Tablet(s), Oral, once a day predniSONE (predniSONE 20 mg oral tablet) 3 Tablet(s), Oral, once a day x 7 day(s) New Routed to Printer Stop Taking the Following Medications: Medication list as of 06-20-16 12:54 Attention: If you have any medications at home that are not on this list, DO NOT take them until youcontact your provider for clarification. Give a copy of your medication list to your primary care provider. Update your medication list any time medications or doses are changed and carry your medication list at all times in case of emergency. Electronically Signed By: MORIAH SHERWOOD PA-C Signed On:20-JUN-2016 12:46:04 Your Allergies & Intolerances Substance Reaction Symptoms [...] local Clinic if further appointment detail needed. Acute Bronchitis Your health care provider has told you that you have acute bronchitis. Bronchitis is infection or inflammation of the bronchial tubes (airways in the lungs). Normally, air moves easily in and out of the airways. Bronchitis narrows the airways, making it harder for air to flow in and out of the lungs. This causes symptoms such as shortness of breath, coughing, and wheezing. Bronchitis can be acute or chronic. Acute means the condition comes on quickly and goes away in a short time. Chronic means a condition lasts a long time and often comes back. Read on to learn more about acute bronchitis. What Causes Acute Bronchitis? Acute bronchitis almost always starts as a viral respiratory infection, such as a cold or the flu. Certain factors make it more likely for a cold or flu to turn into bronchitis. These include being very young or very old or having a heart or lung problem. Cigarette smoking also makes bronchitis more likely. When bronchitis develops, the airways become swollen. The airways may also become infected with bacteria. This is known as a secondary infection. Diagnosing Acute Bronchitis Your health care provider will examine you and ask about your symptoms and health history. You may also have a sputum culture to test the fluid in your lungs. Chest X-rays may be done to look for infection in the lungs. Treating Acute Bronchitis Bronchitis usually clears up as the cold or flu goes away. You can help feel better faster by doing the following: ?? Take medication as directed. You may be told to take ibuprofen or other skjh-ypx-xdtwpgr medications. These help relieve inflammation in your bronchial tubes. Your doctor may prescribe an inhaler tohelp open up the bronchial tubes. If you have a bacterial infection, you may be prescribed antibiotics. If so, take all of this medication as directed until it is gone, even if you feel better. ?? Drink plenty of fluids, such as water, juice, or warm soup. Fluids loosen mucus so that you can cough it up. This helps you breathe more easily. Fluids also prevent dehydration. ?? Make sure you get plenty of rest. ?? Do not smoke. Do not allow anyone else to smoke in your home. Recovery and Follow-Up Follow up with your doctor as you are told. You will likely feel better in a week or two. But a dry cough can linger beyond that time. Let your doctor know if you still have symptoms (other than a dry cough) after 2 weeks. If youre prone to getting bronchial infections, let your doctor know. And take steps to protect yourself from future infections. These steps include stopping smoking and avoiding tobacco smoke, washing your hands often, and getting a yearly flu shot. When to Call the Doctor Call the doctor if you have any of the following: Fever of 100.4?F (38.0?C) higher Symptoms that get worse, or new symptoms Trouble breathing Symptoms that dont start to improve within a week, or within 3 days of taking antibiotics ?? [id number] [facility], [address] [place] [address], [place] [address]. All rights reserved. This information is not [...] if you dont have one. Go to [email or web address] and click on Create Your Account. Then, follow the directions to complete the online form. Youll be asked for your [facility] number which you can find at the top of this document. Your Goals/Additional instructions: This document has images extracted. Please consider using [employer] for all your patient education needs. Source: [facility] POWERCHART Document Id: [id number] Miscellaneous - Moriah Sherwood P.A.-C. - 06/20/2016 12:54 PM CDT Ambulatory Discharge Medication List [facility] [address] [place] [id number] Visit Information Name: RAZA CHRIS [facility] Number: [id number] Visit Date: 06/20/2016 12:54:07 Attending Provider: MORIAH SHERWOOD PA-C Primary Care Provider: TIKI BRINK MD CHRIS ROCKWELL has been given [...] tab, Oral, once a day fexofenadine (Kika 180 mg oral tablet) 1 Tablet(s), Oral, once a day New fluticasone-salmeterol (Advair Diskus 100 mcg-50 mcg inhalation powder) 1 puff(s), Inhalation, two times a day New Routed to Printer hydrochlorothiazide (hydrochlorothiazide 25 mg oral tablet) 1 Tablet(s), Oral, once a day ibuprofen (ibuprofen 800 mg oral tablet) 1 Tablet(s), Oral, three times a day as needed for Pain Take with food lisinopril (lisinopril 10 mg oral tablet) 1 Tablet(s), Oral, once a day multivitamin (multivitamin) 1 tab, Oral, once a day pantoprazole (pantoprazole 20 mg oral delayed release tablet) 1 Tablet(s), Oral, once a day predniSONE (predniSONE 20 mg oral tablet) 3 Tablet(s), Oral, once a day x 7 day(s) New Routed to Printer Stop Taking the Following Medications: Medication list as of 06-20-16 12:54 Attention: If you have any medications at home that are not on this list, DO NOT take them until youcontact your provider for clarification. Give a copy of your medication list to your primary care provider. Update your medication list any time medications or doses are changed and carry your medication list at all times in case of emergency. Electronically Signed By: MORIAH SHERWOOD PA-C Signed On:20-JUN-2016 12:46:04 Additional Information: Source: [facility] POWERCHART Document Id: [id number] Miscellaneous - Kerry Martin L.P.N. - 06/20/2016 12:54 PM CDT Ambulatory Vitals Height Weight Ambulatory Vitals Height Weight Entered On: 06/20/2016 12:56 CDT Performed On: 06/20/2016 12:54 CDT by KERRY MARTIN LPN Vitals/Ht/Wt SpO2 : 99 % Oxygen Therapy : Room air KERRY MARTIN LPN - 06/20/2016 12:54 CDT Source: [facility] POWERCHART Document Id: [id number] CDT!4 Miscellaneous - Elif Young L.P.N. 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 c/o wheezing at times Ambulatory Intake Additional Information : history of this in december Temperature Core : 36.5 DegC(Converted to: 97.7 DegF) Peripheral Pulse Rate : 80 /min Respiratory Rate : 18 /min Systolic Blood Pressure : 100 mmHg Diastolic Blood Pressure : 70 mmHg NIBP Mean : 80 mmHg BP Location : Left upper extremity Blood Pressure Cuff Size : Regular SpO2 : 97 % Oxygen Therapy : Room air Actual Weight : 88.4 kg(Converted to: 194 lb 14 oz) Dosing Weight Clinic : 88.4 kg ELIF YOUNG LPN - 06/20/2016 11:50 CDT General Info Information Given By : Patient Preferred Communication Mode : Verbal, Written Languages : Algerian Is Patient Female and 13-50 no hysterectomy : No ELIF YOUNG LPN - 06/20/2016 11:50 CDT Subjective Pain Symptoms : No ELIF YOUNG LPN - 06/20/2016 11:50 CDT Dependent Habits Exposure to Tobacco Smoke : Other: former smoker 2007 Smoking Status : Former smoker Tobacco 2A : Yes Tobacco Use/Currently Using : No Tobacco Use/Last 30 Days : No Tobacco Use/Last 12 months : No Tobacco Last Use/Year : 2007 ELIF YOUNG LPN - 06/20/2016 11:50 CDT Caffeine Use Grid Caffeine Use : Current Type : Chocolate, Coffee Frequency : Daily Amount : 2-3 ELIF YOUNG [employer]IMBERLI [employer]OR [employer] - 06/20/2016 11:50 CDT Recreational Drug Use Grid Drug Use : None ELIF YOUNG [employer]IMBERLI [employer] - 06/20/2016 11:50 CDT Source: [facility] [employer]o Document Id: [id number] CDT!40 documented in this encounter Plan of Treatment Not on filedocumented as of this encounter Procedures Procedure Name Priority Date/Time Associated Diagnosis Comme nts DX CHEST AP OR PA Routine 06/20/2016 12:19 PM Res ults for this AND LATERAL 2 VIEWS CDT procedur e are in the results section. documented in this encounter Results DX Chest Anterior Posterior or Posterior Anterior and Lateral 2 Views (06/20/2016 12:19 PM CDT) Anatomical Region Laterality Modality Chest N/A Radiographic Imaging Specimen (Source) Anatomical Collection Method Collection Time Re ceived Time Location / / Volume Laterality 06/20/2016 12:19 PM CDT Addenda Addendum by Provider, Ankush Monson 06/20/2016 12:19 PM CDT RAD^^^MA XR Chest 2 Views 06/20/2016 12:19:33 Narrative 06/20/2016 12:51 PM CDT Exam: ?? XR Chest 2 Views Clinical history: cough x 2 mos wheezing Comparison: None Findings: The heart and mediastinum are within nor mal limits. ??The bilateral costophrenic angles and hemidiaphragms a re sharp. There is no acute interstitial or airspace opacity identif ied. The pulmonary vasculature is within normal limits. [<> ] Impression: No acute disease Procedure Note Len Diaz M.D. / Provider, Kumar ulloa M.D. - 02/07/2017 Exam: XR Chest 2 Views Clinical history: cough x 2 mos wheezing Comparison: None Findings: The heart and mediastinum are within nor mal limits. The bilateral costophrenic angles and hemidiaphragms a re sharp. There is no acute interstitial or airspace opacity identif ied. The pulmonary vasculature is within normal limits. [<> ] Impression: No acute disease Mira Linares R.T.(R)(CT), R.T.(R) IMG DIAGNOSTIC IMAG ING PROCEDURES documented in this encounter Visit Diagnoses Not on filedocumented in this encounter
--- OUTSIDE RECORDS SUMMARY | 2022-08-31 10:09 | XMS_ITS | Encounter Summary ---
:1945 Author Organization [facility] Address [address] [place] [address] Care Team Providers Name Role Phone Unavailable Primary Care Provider Unavailable Encounter Details Date Type Department Care Team Description 01/01/2016 Hospital Encounter [facility] Chastity Paige M.D. 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 documented as of this encounter H&P Notes Chastity Davidson M.D. - 01/01/2016 8:13 AM CDT [id number] CHIEF COMPLAINT/REASON FOR VISIT A 70-year-old female here for her annual physical. She also has a cold and cough for the past several days. She declines hepatitis C. We discussed colonoscopy, she had one in 2005. She wants to do the FIT test. She is also due for lipid screening. PAST MEDICAL/SURGICAL HISTORY Arthropathy. Benign hypertension. 3, para 3. Reflux esophagitis. She had an endometrial biopsy in May 2013. Pap smear December 2010. Colonoscopy 2005. Closed fracture of the arm 1954. Tonsillectomy and adenoidectomy 1949. Fracture of the hand. FAMILY HISTORY Mother had breast cancer. Aunt had Parkinson's disease. Grandmother had dementia. Grandfather had prostate and lung cancer. Father had colon cancer. SOCIAL HISTORY She is a former smoker. She drinks 2 to 3 cups of coffee or chocolate daily. MEDICATIONS Calcium 600 plus D 1 tab daily. Hydrochlorothiazide 25 mg 1 tab daily. Ibuprofen 800 mg 3 times a day as needed. Lisinopril 10 mg daily. Multivitamin daily. Pantoprazole 20 mg daily. ALLERGIES GENTAMICIN. NEOSPORIN. TOBRAMYCIN. SYSTEMS REVIEW Last week she was hoarse and her nose was running clear stuff, now she is short of breath with a cough. She has a bad smell and taste in her mouth when she coughs. She has not had any fevers, but she does feel short of breath. Generally, she is trying to lose some weight. CARDIOVASCULAR: Palpitations when she eats high potassium foods, then it goes away. MUSCULOSKELETAL: She has arthritis for which she takes the anti-inflammatories. NEURO: She has had some vertigo with the upper respiratory infection, started back in September. Now when she lies down and rolls over she has some symptoms of vertigo. Remainder of 11 point review of systems was negative. VITAL SIGNS Blood pressure 118/80, pulse 100, respirations 20, temp 36.8. Weight 91.1 kg, height 159.4 cm. O2 sat was 96% to 97% on room air. PHYSICAL EXAMINATION HEENT: Right tympanic membrane had quite a bit of wax. I could see a little bit of the tympanic membrane, it was clear. Left was clear. Oropharynx posterior had dark pink swollen streaks . NECK: Without lymphadenopathy or thyromegaly. CHEST: With wheeze throughout. CARDIOVASCULAR: Regular rate and rhythm. No murmur. : Deferred. BREAST: Deferred. ABDOMEN: Soft, plus bowel sounds. Nontender. NEURO: DTRs are 2+/4. Strengths are 5/5. EXTREMITIES: Full range of motion. No edema. IMPRESSION/REPORT/PLAN 1. Hypertension. 2. Asthmatic bronchitis. 3. Encounter for screening for cardiovascular disorders. 4. Encounter for screening for malignant neoplasm of the colon. 5. Adult well exam. 6. Benign paroxysmal vertigo. PLAN: We are going to do a FIT test and lipid as mentioned, basic metabolic panel because of her hypertension. Physical therapy consult for the vertigo. We are going to start azithromycin in the form of a Z-Chris and albuterol metered- dose inhaler for her upper respiratory infection and bronchitis. She should return as needed and annually. We are going to check her potassium though in 6 months. ADMINISTRATIVE BILLING Total time spent was 34 minutes with 30 minutes in counseling and coordination of care. Chastity Davidson M.D./pos Electronically Signed By: CHASTITY DAVIDSON MD On: 01/08/2016 03:42 PM Modified by and Electronically Signed by: CHASTTIY DAVIDSON MD On: 01/08/2016 03:42 PM Source: [facility] MHSDOLBEYNONRADSYS Document Id: [id number] documented in this encounter Nursing Notes Chastity Davidson M.D. - 01/01/2016 9:15 AM CDT Ambulatory Patient Education The following Patient [...] or fingernails turning mathews or blue ?? [id number] [facility], [address] [place] [address], [place] [address]. All rights reserved. This information is not intended as a substitute for professional medical care. Always follow your healthcare professional's instructions. This document has images extracted. Please consider using [employer] for all your patient education needs. Source: [facility] POWERCHART Document Id: [id number] documented in this encounter Miscellaneous Notes Miscellaneous - Chastity Davidson M.D. - 01/01/2016 9:15 AM CDT Ambulatory Patient Summary [facility] [address] [place], [place] [id number] Visit Information Name: CHRIS ROCKWELL [facility] Number: [id number] Current Date: 01/01/2016 09:15:10 Physicians Attending Provider: CHASTITY DAVIDSON MD Primary Care Provider: CHASTITY DAVIDSON MD ESTEBAN ROCKWELLERINE has been given [...] asneeded for Shortness of breath / Wheezing New Routed to [address] [address] azithromycin (Azithromycin 5 Day Dose Pack 250 mg oral tablet) 2 tablets on day 1, then 1 tablet on days 2-5, Oral, as directed x 5 day(s) New Routed to [address] [place] [address] calcium-vitamin D (Calcium 600+D) 1 tab, Oral, once a day hydrochlorothiazide (hydrochlorothiazide 25 mg oral tablet) 1 Tablet(s), Oral, once a day Routed to [address] [place] [address] ibuprofen (ibuprofen 800 mg oral tablet) 1 Tablet(s), Oral, three times a day as needed for Pain Take with food lisinopril (lisinopril 10 mg oral tablet) 1 Tablet(s), Oral, once a day Routed to [address] [place] [address] multivitamin (multivitamin) 1 tab, Oral, once a day pantoprazole (pantoprazole 20 mg oral delayed release tablet) 1 Tablet(s), Oral, once a day Routed to [address] [place] [address] Stop Taking the Following Medications: Medication list as of 01-01-16 09:15 Attention: If you have any medications at home that are not on this list, DO NOT take them until youcontact your provider for clarification. Give a copy of your medication list to your primary care provider. Update your medication list any time medications or doses are changed and carry your medication list at all times in case of emergency. Electronically Signed By: CHASTITY DAVIDSON MD Signed On:01-JAN-2016 09:14:43 Your Allergies & Intolerances Substance Reaction Symptoms [...] or fingernails turning mathews or blue ?? [phone] Britney Oden, [address] [place] [address]. All rights reserved. This information is not [...] if you dont have one. Go to [email or web address] and click on Create Your Account. Then, follow the directions to complete the online form. Youll be asked for your [facility] number which you can find at the top of this document. Your Goals/Additional instructions: This document has images extracted. Please consider using [employer] for all your patient education needs. Source: [facility] POWERCHART Document Id: [id number] Miscellaneous - Chastity Davidson M.D. - 01/01/2016 9:15 AM CDT Ambulatory Discharge Medication List [facility] [address] [place] [id number] Visit Information Name: RAZACHRIS [facility] Number: [id number] Visit Date: 01/01/2016 09:15:09 Attending Provider: CHASTITY DAVIDSON MD Primary Care Provider: CHASTITY DAVIDSON MD RAZA CHRIS has been given the following list of [...] asneeded for Shortness of breath / Wheezing New Routed to [address] [place] [address] azithromycin (Azithromycin 5 Day Dose Pack 250 mg oral tablet) 2 tablets on day 1, then 1 tablet on days 2-5, Oral, as directed x 5 day(s) New Routed to [address] [place] [place] [address] calcium-vitamin D (Calcium 600+D) 1 tab, Oral, once a day hydrochlorothiazide (hydrochlorothiazide 25 mg oral tablet) 1 Tablet(s), Oral, once a day Routed to [address] [place] [place] [address] ibuprofen (ibuprofen 800 mg oral tablet) 1 Tablet(s), Oral, three times a day as needed for Pain Take with food lisinopril (lisinopril 10 mg oral tablet) 1 Tablet(s), Oral, once a day Routed to [address] [place] [address] multivitamin (multivitamin) 1 tab, Oral, once a day pantoprazole (pantoprazole 20 mg oral delayed release tablet) 1 Tablet(s), Oral, once a day Routed to [address] [place] [address] Stop Taking the Following Medications: Medication list as of 01-01-16 09:15 Attention: If you have any medications at home that are not on this list, DO NOT take them until youcontact your provider for clarification. Give a copy of your medication list to your primary care provider. Update your medication list any time medications or doses are changed and carry your medication list at all times in case of emergency. Electronically Signed By: CHASTITY DAVIDSON MD Signed On:01-JAN-2016 09:14:43 Additional Information: Yes - . Source: [facility] POWERCHART Document Id: [id number] Miscellaneous - Windy Geovanna Kirby L.P.N. - 01/01/2016 8:29 AM CDT Health Assessment Health Assessment Entered On: 01/01/2016 8:30 CDT Performed On: 01/01/2016 8:29 CDT by GEOVANNA FAJARDO LPN Health Assessment Complete Health Assessment Complete or Modified : Annual Health Assessment Annual Health Assessment Completed : Yes WINDYGEOVANNA KEN MELARA - 01/01/2016 8:29 CDT Nutrition Nutrition Risk Factors by History Adult : None Home Diet : Regular GEOVANNA FAJARDO KEN MELARA - 01/01/2016 8:29 CDT Functional Living Situation : Home independently Current Daily Living Assistance : None WINDYGEOVANNA KEN MELARA - 01/01/2016 8:29 CDT Dependent Habits Exposure to Tobacco Smoke : Other: former smoker Smoking Status : Former smoker Tobacco 2A : Yes Tobacco Use/Currently Using : No Tobacco Use/Last 30 Days : No Tobacco Use/Last 12 months : No WINDYGEOVANNA KEN MELARA - 01/01/2016 8:29 CDT Caffeine Use Grid Caffeine Use : Current Type : Chocolate, Coffee Frequency : Daily Amount : 2-3 GEOVANNA FAJARDO KEN MELARA - 01/01/2016 8:29 CDT Alcohol Use : Yes WINDY GEOVANNA ROGERS LPN - 01/01/2016 8:29 CDT Recreational Drug Use Grid Drug Use : None GEOVANNA FAJARDO KEN MELARA - 01/01/2016 8:29 CDT AUDIT Tool How Often Do You Have A Drink : 2 to 4 times a month How Many Drinks in a Day When Drinking : 1 or 2 Six or More Drinks On One Occassion : Never Audit Phase 1 Score : 2 GEOVANNA FAJARDO KEN MELARA - 01/01/2016 8:29 CDT Psychosocial Domestic Abuse Concerns : None Behavioral Health Screen/Safety Assmt : No Scientologist Preference : No qualifying data available. WINDY GEOVANNA ROGERS LPN - 01/01/2016 8:29 CDT Advance Directive Advanced Directives : No Advance Directive Additional Information : No GEOVANNA FAJARDO KEN MELARA - 01/01/2016 8:29 CDT Educ Needs Learning Style Preference Adult Grid Patient : None Family : None FAJARDOGEOVANNA ROBLERO KEN MELARA - 01/01/2016 8:29 CDT Source: [facility] POWERCHART Document Id: [id number] CDT!43 Miscellaneous - Geovanna Fajardo L.P.N. 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 Pt has had cold and cough for the past several days Temperature Core : 36.8 DegC(Converted to: 98.2 DegF) Peripheral Pulse Rate : 100 /min Respiratory Rate : 20 /min Heart Rhythm : Regular Systolic Blood Pressure : 118 mmHg Diastolic Blood Pressure : 80 mmHg NIBP Mean : 93 mmHg BP Location : Left upper extremity Blood Pressure Cuff Size : Large Height : 159.4 cm(Converted to: 5 ft 3 inch(es), 63 inch(es)) Actual Weight : 91.1 kg(Converted to: 200 lb 13 oz) Weight Source : Standing scale Dosing Weight Clinic : 91.1 kg Clinic BSA : 2.01 Body Mass Index : 35.85 kg/m2 FAJARDO, GEOVANNA ROGERS LPN - 01/01/2016 8:24 CDT General Info Information Given By : Patient Preferred Communication Mode : Verbal Languages : Libyan Is Patient Female and 13-50 no hysterectomy : No GEOVANNA FAJARDO LPN - 01/01/2016 8:24 CDT Subjective Pain Symptoms : No GEOVANNA FAJARDO LPN - 01/01/2016 8:24 CDT Dependent Habits Exposure to Tobacco Smoke : Other: former smoker Smoking Status : Former smoker Tobacco 2A : Yes Tobacco Use/Currently Using : No Tobacco Use/Last 30 Days : No Tobacco Use/Last 12 months : No GEOVANNA FAJARDO LPN - 01/01/2016 8:24 CDT Caffeine Use Grid Caffeine Use : Current Type : Chocolate, Coffee Frequency : Daily Amount : 2-3 GEOVANNA FAJARDO LPN - 01/01/2016 8:24 CDT Recreational Drug Use Grid Drug Use : None GEOVANNA FAJARDO LPN - 01/01/2016 8:24 CDT [facility] Document Id: [id number] CDT!41 documented in this encounter Plan of Treatment Not on filedocumented as of this encounter Visit Diagnoses Not on filedocumented in this encounter
--- OUTSIDE RECORDS SUMMARY | 2022-08-31 10:09 | XMS_ITS | Encounter Summary ---
:1945 Author Organization [facility] Address [address] [place] [address] Care Team Providers Name Role Phone Unavailable Primary Care Provider Unavailable Encounter Details Date Type Department Care Team Description 08/21/2016 Hospital Encounter [facility] Mick [place] M.D. 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 HYDROcodone-acetaminophen Take by mouth every 0 1 10/12/2015 10/12/2017 (NORCO) 5-325 mg per 6 (six) hours as tablet needed. ibuprofen Take 1 tablet by 0 11/13/2009 10/12/19 18 (for_ADVIL,MOTRIN) 600 mg mouth 3 (three) tablet times a day as needed. lisinopril Take 1 tablet by 0 07/09/2016 09/30/20 17 (for_PRINIVIL,ZESTRIL) 5 mouth daily. mg tablet documented as of this encounter Progress Notes Jesus Choe M.D. - 08/21/2016 8:43 AM CST [id number] HISTORY OF PRESENT ILLNESS Mary Jane returns today 1 week after excision of a dorsal ganglion from the left wrist. She has no complaints at today's visit. PHYSICAL EXAMINATION VITAL SIGNS: On examination, she is afebrile with stable vital signs. She has full active range of motion in the digits and the wrist. Her incision is clean, dry and intact. There is no erythema or edema. IMPRESSION/REPORT/PLAN Mary Jane Rockwell is a 71-year-old woman who is 1 week status post excision of a left wrist dorsalganglion. She is doing well. Her sutures were removed without complication. She will return to activity as tolerated and follow up on an as needed basis. Jesus Choe M.D./pos Electronically Signed By: JESUS CHOE MD On: 09/08/2016 11:37 AM Source: [facility] MHSDOLBEYNONRADSYS Document Id: [id number] EASING SOLUTION MIXER documented in this encounter Miscellaneous Notes Miscellaneous - Karen Modi R.N. 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 Entered On: 08/21/2016 8:51 DEGREASING SOLUTION MIXER Performed On: 08/21/2016 8:49 DEGREASING SOLUTION MIXER by KAREN MODI chemical production technician Chief Complaint : post op left wrist Temperature Core : 36.2 DegC(Converted to: 97.2 DegF) (LOW) Peripheral Pulse Rate : 72 /min Respiratory Rate : 16 /min Systolic Blood Pressure : 124 mmHg Diastolic Blood Pressure : 76 mmHg NIBP Mean : 92 mmHg BP Location : Right upper extremity Blood Pressure Cuff Size : Large KAREN MODI RN - 08/21/2016 8:49 DEGREASING SOLUTION MIXER General Info Information Given By : Patient Preferred Communication Mode : Verbal Languages : Kittitian Is Patient Female and 13-50 no hysterectomy : No KAREN MODI RN - 08/21/2016 8:49 DEGREASING SOLUTION MIXER Subjective Pain Symptoms : No KAREN MODI RN - 08/21/2016 8:49 DEGREASING SOLUTION MIXER Dependent Habits Exposure to Tobacco Smoke : Other: former smoker 2007 Smoking Status : Former smoker Tobacco 2A : Yes Tobacco Use/Currently Using : No Tobacco Use/Last 30 Days : No Tobacco Use/Last 12 months : No Tobacco Last Use/Year : 2007 KAREN MODI RN - 08/21/2016 8:49 DEGREASING SOLUTION MIXER Caffeine Use Grid Caffeine Use : Current Type : Chocolate, Coffee Frequency : Daily Amount : 2-3 KAREN MODI RN - 08/21/2016 8:49 DEGREASING SOLUTION MIXER Recreational Drug Use Grid Drug Use : None KAREN MODI RN - 08/21/2016 8:49 DEGREASING SOLUTION MIXER Source: [employer] Document Id: [id number] DEGREASING SOLUTION MIXER!35 EASING SOLUTION MIXER documented in this encounter Plan of Treatment Not on filedocumented as of this encounter Visit Diagnoses Not on filedocumented in this encounter
--- OUTSIDE RECORDS SUMMARY | 2022-08-31 10:09 | XMS_ITS | Encounter Summary ---
:1945 Author Organization [facility] Address [address] [place] [address] Care Team Providers Name Role Phone Unavailable Primary Care Provider Unavailable Encounter Details Date Type Department Care Team Description 02/16/2017 Hospital Encounter HX [facility] Chastity Paige M.D. 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 multivitamin capsule Take by mouth 0 11/13/2009 daily. albuterol sulfate 90 Inhale 2 puffs 0 06/13/2016 10/12/2017 mcg/actuation aerosol powdr every 4 (four) breath activated hours as needed. fexofenadine (for_ALLEGRA) Take 180 mg by 0 07/0910/12/2017 180 mg tablet mouth daily. hydroCHLOROthiazide Take 1 tablet by 0 12/03/2016 09/09/2017 (for_HYDRODIURIL) 25 mg mouth daily. tablet HYDROcodone-acetaminophen Take by mouth 0 016 10/12/2017 (NORCO) 5-325 mg per tablet every 6 (six) hours as needed. ibuprofen (for_ADVIL,MOTRIN) Take 1 tablet by 0 0 11/13/2009 10/12/2017 600 mg tablet mouth 3 (three) times a day as needed. lisinopril Take 1 tablet by 0 07/09/2016 09/30/20 17 (for_PRINIVIL,ZESTRIL) 5 mg mouth daily. tablet pantoprazole (for_PROTONIX) Take 1 tablet by 0 09/09/2017 20 mg EC tablet mouth daily. documented as of this encounter Miscellaneous Notes Miscellaneous - Katalina Ramsay, L.P.N. - 02/16/2017 4:40 PM CDT Ambulatory Vitals Height Weight Ambulatory Vitals Height Weight Entered On: 02/16/2017 16:42 CDT Performed On: 02/16/2017 16:40 CDT by KATALINA RAMSAY LPN Vitals/Ht/Wt Peripheral Pulse Rate : 64 /min Heart Rhythm : Regular Systolic Blood Pressure : 122 mmHg Diastolic Blood Pressure : 70 mmHg NIBP Mean : 87 mmHg BP Location : Left upper extremity Blood Pressure Cuff Size : Large KATALINA RAMSAY LPN - 02/16/2017 16:40 CDT [facility] Document Id: [id number] CDT!9 documented in this encounter Plan of Treatment Not on filedocumented as of this encounter Visit Diagnoses Not on filedocumented in this encounter
--- OUTSIDE RECORDS SUMMARY | 2022-08-31 10:09 | XMS_ITS | Encounter Summary ---
:1945 Author Organization [facility] Address [address] [place] [address] Care Team Providers Name Role Phone Chastity Davidson M.D. 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 PCP - General 03/19/17 01/11/20 documented as of this encounter
--- OUTSIDE RECORDS SUMMARY | 2022-08-31 10:09 | XMS_ITS | Encounter Summary ---
:1945 Author Organization [facility] Address [address] [place] [address] Care Team Providers Name Role Phone Unavailable Primary Care Provider Unavailable Encounter Details Date Type Department Care Team Description 12/15/2013 Hospital Encounter [facility] Tiki Paige M.D. 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 - 12/15/2013 2:23 PM CDT [id number] CHIEF COMPLAINT/REASON FOR VISIT A 68-year-old female here for wellness physical. HISTORY OF PRESENT ILLNESS She is on Provera for bleeding. She has been seeing Dr. Mcnamara. She will be seeing him next month. For the last 6 months, she has not had any warm spells at night probably due to the Provera. PAST MEDICAL/SURGICAL HISTORY MEDICAL: Arthropathy. 3, para 3. Esophageal reflux. Hypertension. Endometrial biopsy in 2012. Pap smear 2010. Colonoscopy 2005. Closed fracture of the arm in 1954. Tonsillectomy and adenoidectomy in 1949. Fracture of hand. SOCIAL HISTORY She is a former smoker. She drinks coffee and chocolate 2 to 3 cups a day. FAMILY HISTORY Mother had breast cancer. Cancer of the GI tract, lung cancer, prostate cancer, dementia, kidney disease, and Parkinson's disease. MEDICATIONS Calcium 600 plus D 1 tab daily. Hydrochlorothiazide 25 mg daily. Ibuprofen 800 mg 3 times a day as needed pain. Lisinopril 10 mg daily. Multivitamin 1 tab daily. Pantoprazole 20 mg daily. Provera 5 mg daily. ALLERGIES FLU VACCINE. GENTAMICIN. NEOSPORIN. TOBRAMYCIN. SYSTEMS REVIEW General: See HPI in regard to warm spells. They are decreased. ENT: No ear, nose, throat problems. CHEST: No shortness of breath or cough. CARDIOVASCULAR: No chest pain or palpitations. GI: No nausea, vomiting, diarrhea, constipation, or heartburn. : No dysuria, hematuria, or vaginal discharge. MUSCULOSKELETAL: Her knees bother her. NEUROLOGIC: No numbness or tingling. ENDOCRINE: No increased thirst, urination, heat, or cold intolerance. PSYCH: No depression or anxiety. SKIN: No rash or lesions. VITAL SIGNS Blood pressure 138/88, pulse 72, respirations 20, temp 36.8, weight 95.5 kg, height 168 cm. PHYSICAL EXAMINATION HEENT: Tympanic membranes: The right is obscured by cerumen. The left appears normal. Mentioned Debrox as something she could use for the ears. 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 Pupils equal and reactive to light. Oropharynx is nonerythematous. NECK: Supple without lymphadenopathy or thyromegaly. CHEST: Clear to auscultation bilaterally. CARDIOVASCULAR: Regular rate and rhythm. No murmur. ABDOMEN: Soft, plus bowel sounds, nontender. NEURO: DTRs are 2+/4. EXTREMITIES: Without edema. BREAST AND : Exam deferred per patient. IMPRESSION/REPORT/PLAN 1. General medical exam. 2. Hypertension. PLAN: We are going to check a basic metabolic panel. Refilled medicines as needed. She should returnas needed and annually. ADMINISTRATIVE BILLING Total time spent was 25 minutes, with 20 minutes in counseling and coordination of care. Tiki Davidson M.D./pos Electronically Signed By: TIKI DAVIDSON MD On: 03/11/2014 10:31 AM Source: [facility] [id number] Document Id: [id number] documented in this encounter Miscellaneous Notes Miscellaneous - Tiki Davidson M.D. - 03/10/2014 9:34 AM CDT RE: The Coding Query From: TIKI DAVIDSON MD To: TOMEKA GARCIA; Sent: 03/10/2014 09:34:14 CDT Subject: RE: The Coding Query done From: TOMEKA GARCIA To: TIKI DAVIDSON MD; Sent: 02/03/2014 13:46:11 CDT Subject: The Coding Query Missing dictation for dos 12/15/13, [id number] Thanks Tomeka Garcia Coding Source: [facility] POWERCHART Document Id: [id number] Miscellaneous - Tiki Davidson M.D. - 02/12/2014 6:35 PM CDT RE: The Coding Query From: TIKI DAVIDSON MD To: TOMEKA GARCIA; Sent: 02/12/2014 18:35:53 CDT Subject: RE: The Coding Query done From: TOMEKA GARCIA To: TIKI DAVIDSON MD; Sent: 12/21/2013 13:53:09 CDT Subject: The Coding Query Dictation, dos 12/15/13, encounter [id number] Source: [employer] Document Id: [id number] Electronically signed by [facility] Cnc Specialist [id number] at 03/03/2017 5:05 AM CDT Miscellaneous - Tiki Davidson M.D. - 02/12/2014 6:18 PM CDT RE: The Coding Query From: TIKI DAVIDSON MD To: TOMEKA GARCIA; Sent: 02/12/2014 18:18:52 CDT Subject: RE: The Coding Query done From: TOMEKA GARCIA To: TIKI DAVIDSON MD; Sent: 01/17/2014 10:33:54 CDT Subject: FW: The Coding Query 2nd request From: TOMEKA GARCIA To: TIKI DAVIDSON MD; Sent: 12/21/2013 13:53:09 CDT Subject: The Coding Query Dictation, dos 12/15/13, encounter [id number] Source: [employer] Document Id: [id number] Luis Miguel - Tiki Davidson M.D. - 12/15/2013 7:56 PM CDT Normal Results Letter 15 December 2013 [facility] [place] [id number] [facility] [id number] Dear CHRIS ROCKWELL, I am pleased to report that your results from the following diagnostic test(s) are normal. Please follow up with us as we discussed during your visit or sooner if you have any concerns. If you have questions or concerns, please do not hesitate to call our office. Result Name Current Result Normal Range Sodium Lvl (mmol/L) 141 12/15/2013 135 - 145 Potassium Lvl (mmol/L) 3.7 12/15/2013 3.5 - 5.1 Chloride (mmol/L) 105 12/15/2013 98 - 107 CO2 (mmol/L) 26 12/15/2013 22 - 29 AGAP (mmol/L) 10 12/15/2013 7 - 15 Glucose Lvl (mg/dL) 95 12/15/2013 70 - 140 Creatinine (mg/dL) 0.8 12/15/2013 0.6 - 1.2 EGFR (MDRD) >60.0 12/15/2013 >=60.0 - EGFR (MDRD) >60 12/15/2013 >=60 - BUN (mg/dL) 22 12/15/2013 6 - 24 Calcium Lvl (mg/dL) 9.8 12/15/2013 8.6 - 10.2 Sincerely, TIKI DAVIDSON [address] [place] [address] Electronic Signature Electronically Signed By: TIKI DAVIDSON MD On: 15 December 2013 This document has images extracted. Source: [facility] POWERCHART Document Id: [id number] Tiki Abrams M.D. - 12/15/2013 3:09 PM CDT Ambulatory Patient Summary [place] [facility] [address], [place] [id number] Visit Information Name: CHRIS ROCKWELL [facility] Number: [id number] Current Date: 12/15/2013 15:09:48 Physicians Attending Provider: TIKI DAVIDSON MD Primary Care [...] Take Indications/Special Instructions/Comments/Notes for Patient Medication Changes/Routing calcium-vitamin D (Calcium 600+D) 1 tab, Oral, once a day hydrochlorothiazide (hydrochlorothiazide 25 mg oral tablet) 1 Tablet(s), Oral, once a day Routed to [address] [address] ibuprofen (ibuprofen 800 mg oral tablet) 1 Tablet(s), Oral, three times a day as needed for Pain Take with food lisinopril (lisinopril 10 mg oral tablet) 1 Tablet(s), Oral, once a day Routed to [address] [address] medroxyPROGESTERone (Provera 5 mg oral tablet) 1 Tablet(s), Oral, once a day This is a CHANGE multivitamin (multivitamin) 1 tab, Oral, once a day pantoprazole (pantoprazole 20 mg oral enteric coated tablet) 1 Tablet(s), Oral, once a [place] [address] [address] Stop Taking the Following Medications: Medication list as of 12-15-13 15:09 Attention: If you have any medications at home that are not on this list, DO NOT take them until youcontact your provider for clarification. Give a copy of your medication list to your primary care provider. Update your medication list any time medications or doses are changed and carry your medication list at all times in case of emergency. Your Allergies & Intolerances Substance Reaction Symptoms Category Comments gentamicin Drug tobramycin Drug Neosporin Drug flu vaccines Redness Drug Your Problem List Problem Status Onset Comments Benign hypertension Active Arthritis Active 3 Active Para 3 Active Family History of Malignant Neoplasm of Breast Active Family history of colon cancer Active Family history of Parkinson's disease Active Family history of lung cancer Active Family history of prostate cancer Active Family history of kidney disease Active Family history of dementia Active GERD [Gastroesophageal reflux disease] Active 12/17/2011 Your Upcoming Appointments Date Time Location Reason Provider 12/26/2013 13:15 [facility] SHAREPOINT TRAINER OUTREACH DIRECTOR Naima DAMON, Abdirahman Kirby Attention: Contact your local Clinic if further appointment detail needed. Your Goals/Additional instructions: Source: [facility] POWERCHART Document Id: [id number] Miscellaneous - Tiki Davidson M.D. - 12/15/2013 3:09 PM CDT Ambulatory Discharge Medication List [place] - [address] [id number] Visit Information Name: CHRIS ROCKWELL [facility] Number: [id number] Visit Date: 12/15/2013 15:09:46 Attending Provider: TIKI DAVIDSON MD Primary Care [...] Take Indications/Special Instructions/Comments/Notes for Patient Medication Changes/Routing calcium-vitamin D (Calcium 600+D) 1 tab, Oral, once a day hydrochlorothiazide (hydrochlorothiazide 25 mg oral tablet) 1 Tablet(s), Oral, once a day Routed to [address] [id number] ibuprofen (ibuprofen 800 mg oral tablet) 1 Tablet(s), Oral, three times a day as needed for Pain Take with food lisinopril (lisinopril 10 mg oral tablet) 1 Tablet(s), Oral, once a day Routed to [address] [address] medroxyPROGESTERone (Provera 5 mg oral tablet) 1 Tablet(s), Oral, once a day This is a CHANGE multivitamin (multivitamin) 1 tab, Oral, once a day pantoprazole (pantoprazole 20 mg oral enteric coated tablet) 1 Tablet(s), Oral, once a day Routed to[address] [address] Stop Taking the Following Medications: Medication list as of 12-15-13 15:09 Attention: If you have any medications at home that are not on this list, DO NOT take them until youcontact your provider for clarification. Give a copy of your medication list to your primary care provider. Update your medication list any time medications or doses are changed and carry your medication list at all times in case of emergency. Additional Information: Yes - . Source: [facility] POWERCHART Document Id: [id number] Miscellaneous - Chapo Fajardo, LLaP.N. 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/History Entered On: 12/15/2013 14:35 CDT Performed On: 12/15/2013 14:32 CDT by CHAPO FAJARDO LPN Intake Chief Complaint : annual physical Temperature Core : 36.8 DegC(Converted to: 98.2 DegF) Peripheral Pulse Rate : 72 /min Respiratory Rate : 20 /min Heart Rhythm : Regular Systolic Blood Pressure : 138 mmHg Diastolic Blood Pressure : 88 mmHg NIBP Mean : 105 mmHg BP Location : Left upper extremity Blood Pressure Cuff Size : Large Height : 158 cm(Converted to: 5 ft 2 inch(es), 62 inch(es)) Actual Weight : 95.5 kg(Converted to: 210 lb 9 oz) Dosing Weight Clinic : 95.5 kg Clinic BSA : 2.05 Body Mass Index : 38.26 kg/m2 CHAPO FAJARDO LPN - 12/15/2013 14:32 CDT General Info Information Given By : Patient Preferred Communication Mode : Verbal Languages : Beninese CHAPO FAJARDO LPN - 12/15/2013 14:32 CDT Subjective Pain Symptoms : No CHAPO FAJARDO LPN - 12/15/2013 14:32 CDT Dependent Habits Tobacco Use/Currently Using : No Exposure to Tobacco Smoke : Other: former smoker Smoking Status : Former smoker CHAPO FAJARDO LPN - 12/15/2013 14:32 CDT Caffeine Use Grid Caffeine Use : Current Type : Chocolate, Coffee Frequency : Daily Amount : 2-3 CHAPO FAJARDO LPN - 12/15/2013 14:32 CDT Recreational Drug Use Grid Drug Use : None CHAPO FAJARDO LPN - 12/15/2013 14:32 CDT Source: [employer] Document Id: [id number] CDT!36 Miscellaneous - Chapo Fajardo L.P.NLa - 12/15/2013 2:31 PM CDT Health Assessment Health Assessment Entered On: 12/15/2013 14:32 CDT Performed On: 12/15/2013 14:31 CDT by CHAPO FAJARDO LPN Health Assessment Complete Health Assessment Complete or Modified : Annual Health Assessment Annual Health Assessment Completed : Yes CHAPO FAJARDO LPN - 12/15/2013 14:31 CDT Nutrition Nutrition Risk Factors by History Adult : None CHAPO FAJARDO LPN - 12/15/2013 14:31 CDT Functional Living Situation : Home independently Current Daily Living Assistance : None CHAPO FAJARDO LPN - 12/15/2013 14:31 CDT Dependent Habits Tobacco Use/Currently Using : No Exposure to Tobacco Smoke : Other: former smoker Smoking Status : Former smoker CHAPO FAJARDO LPN - 12/15/2013 14:31 CDT Caffeine Use Grid Caffeine Use : Current Type : Chocolate, Coffee Frequency : Daily Amount : 2-3 CHAPO FAJARDO 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 - 12/15/2013 14:31 CDT Recreational Drug Use Grid Drug Use : None CHAPO FAJARDO 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 - 12/15/2013 14:31 CDT Psychosocial Domestic Abuse Concerns : None CHAPO FAJARDO 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 - 12/15/2013 14:31 CDT Advance Directive Advanced Directives : No CHAPO FAJARDO 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 - 12/15/2013 14:31 CDT Educ Needs Learning Style Preference Adult Grid Patient : None Family : None CHAPO FAJARDO 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 - 12/15/2013 14:31 CDT [facility] Document Id: [id number] CDT!30 documented in this encounter Plan of Treatment Not on filedocumented as of this encounter Procedures Procedure Name Priority Date/Time Associated Diagnosis Comme nts BASIC METABOLIC Routine 12/15/2013 3:37 PM Result s for this PANEL, S/P CDT procedure are i n the results section. documented in this encounter Results BMP (Basic Metabolic Panel) (12/15/2013 3:37 PM CDT) P athologist Signature Sodium, S 141 135 - 145 POWERCHART MMOLL Potassium, S 3.7 3.5 - 5.1 POWERCHART MMO[facility] Chloride, S 105 98 - 107 POWERCHART [facility] CO2 Total 26 22 - 29 POWERCHART MMOLL BUN (Blood Urea 22 6 - 24 POWERCHART Nitrogen), S MGDL Creatinine 0.8 0.6 - 1.2 POWERCHART MGDL Calcium, Total, 9.8 8.6 - 10.2 POWERCHART S MGDL Anion Gap 10 7 - 15 POWERCHART M[facility] HXeGFR (MDRD) >60.0 >=60.0 POWERCHART Comment: Results are in mL/min/1.73m squared CKD Stage I: GFR > 90 CKD Stage II: GFR 60 to 89 CKD Stage III: GFR 30 to 59 CKD Stage IV: GFR 15 to 29 CKD Stage V: GFR < 15 or Dialysis eGFR Black/ >60 >=60 PO WERCHART Glucose 95 70 - 140 MGDL POWERCHART Specimen (Source) Anatomical Collection Method Collection Time Re ceived Time Location / / Volume Laterality Blood 12/15/2013 3:37 PM CDT Tiki Davidson M.D. LAB BLOOD ADD-ON Performing Organization Address City/State/ZIP Code Phon e Number POWERCHART documented in this encounter Visit Diagnoses Not on filedocumented in this encounter
--- OUTSIDE RECORDS SUMMARY | 2022-08-31 10:09 | XMS_ITS | Encounter Summary ---
:1945 Author Organization [facility] Address [address] [place] [address] Care Team Providers Name Role Phone Chastity Davidson M.D. Primary Care Provider Unavailable Reason for Visit Reason Comments Med Refill Encounter Details Date Type Department Care Team Description 09/09/2017 Refill Department of Family Medicine, Charleen Renee, L.P.N. 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 PCP - General 03/19/17 01/11/20 documented as of this encounter
--- OUTSIDE RECORDS SUMMARY | 2022-08-31 10:09 | XMS_ITS | Encounter Summary ---
:1945 Author Organization [facility] Address [address] [place] [address] Care Team Providers Name Role Phone Unavailable Primary Care Provider Unavailable Encounter Details Date Type Department Care Team Description 08/10/2015 Hospital Encounter [facility] Karlee Bocanegra M.D. 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 Medications at [...] of this encounter Miscellaneous Notes Miscellaneous - Conversion, Historical Provider Ser - 08/10/2015 11:59 PM DEVOPS CONSULTANT Coding Summary-Paper Based CODING DATE: 08/14/2015 FINAL [facility] STATUS: * Discharged to Home or Self Care PAYOR: Medicare Advantage ADMIT DX: REASON FOR VISIT DX: FINAL DX: PRINCIPAL: Z12.31 Encounter for screening mammogram for malignant neoplasm of breast SECONDARY: M75.81 Other shoulder lesions, right shoulder PROCEDURES DOCTOR NAME DATE NOTE: The code number assigned matches the documented diagnosis and / or procedure in the patient's chart. However, the narrative phrase printed from the coding software may appear abbreviated, or result in slightly different terminology. Coded By: AVA MAYERS Date Saved: 08/14/2015 10:18 am Source: [employer] Document Id: [id number] Miscellaneous - Chastity Davidson M.D. - 08/10/2015 5:03 PM CST Normal Results Letter 10 August 2015 [facility] [place] [id number] [facility] [id number] Dear CHRIS ROCKWELL, I am pleased to report that your results from the following diagnostic test(s) are normal. Please follow up with us as we discussed during your visit or sooner if you have any concerns. If you have questions or concerns, please do not hesitate to call our office. Reason For Exam follow up sclerotic lesion Report Exam: XR Shoulder Right 2 or more views Clinical history: follow up sclerotic lesion Comparison: 12/08/2014 Findings: There are mild degenerative change of the acromioclavicular joint. There is subchondral change in the greater tuberosity. The humeral acromial interval is within normal limits. The proximal humerus is intact. The right upper thorax is unremarkable. Impression: No significant change. No evidence for fracture or dislocation. Result Name Current Result Previous Result XR Shoulder Right 2 or more views 08/10/2015 12/08/2014 Sincerely, CHASTITY DAVIDSON [address] [place] [address] Electronic Signature Electronically Signed By: CHASTITY DAVIDSON MD On: 10 August 2015 This document has images extracted. Source: [employer] Document Id: [id number] Electronically signed by Conversion, [facility] Valve Inserter [id number] at 03/02/2017 7:26 AM CDT documented in this encounter Plan of Treatment Not on filedocumented as of this encounter Procedures Procedure Name Priority Date/Time Associated Diagnosis Comme nts BI BREAST SCREENING Routine 08/10/2015 8:30 AM Re sults for this BILATERAL DEVOPS CONSULTANT procedure are i n the results section. DX SHOULDER RIGHT Routine 08/10/2015 8:07 AM Resu lts for this 2+ VIEWS DEVOPS CONSULTANT procedure are i n the results section. documented in this encounter Results BI Breast Screening Bilateral (08/10/2015 8:30 AM DEVOPS CONSULTANT) Anatomical Region Laterality Modality Breast Bilateral Mammography Specimen (Source) Anatomical Collection Method Collection Time Re ceived Time Location / / Volume Laterality 08/10/2015 8:30 AM DEVOPS CONSULTANT Addenda Addendum by Provider, Ankush Monson o n 08/10/2015 8:30 AM DEVOPS CONSULTANT RAD^^^MA MA Mammo Screening w/ CADD 08/10/2015 08:30:00 Impressions 08/10/2015 10:35 AM DEVOPS CONSULTANT 1. Stable examination with no mammograph ic evidence of malignancy. 2. Annual screening mammography is recom mended. BIRADS: Code 2, ??Benign Findings BREAST MAMMOGRAPHY-GENERAL OBSERVATION: The false negative rate for mammography is 15 to 20%. It cannot be u sed, therefore, to replace regular physical examination. A normal o r noncontributory mammogram report should also not deter the aggress itn further workup of any suspected palpable masses. Narrative 08/10/2015 10:35 AM DEVOPS CONSULTANT Bilateral craniocaudal and oblique views of the breasts were obtained digitally, and compared to the patient's prior studies of November 10, 2012 and prior. FINDINGS: The breast parenchyma remains heterogene ously dense with a stable appearance relative to prior studies. Th ere are no new or suspicious grouping of calcifications, dominant nod ules, areas of skin thickening or nipple retraction to sugge st malignancy. Stable benign calcifications. Computer Aided Detection was utilized du ring the interpretation of this exam. Procedure Note Marc Bull M.D. / Provider, Julio Cesar ortiz M.D. - 02/12/2017 Bilateral craniocaudal and oblique views of the breasts were obtained digitally, and compared to the patient's prior studies of November 10, 2012 and prior. FINDINGS: The breast parenchyma remains heterogene ously dense with a stable appearance relative to prior studies. Th ere are no new or suspicious grouping of calcifications, dominant nod ules, areas of skin thickening or nipple retraction to sugge st malignancy. Stable benign calcifications. Computer Aided Detection was utilized du ring the interpretation of this exam. IMPRESSION: 1. Stable examination with no mammograph ic evidence of malignancy. 2. Annual screening mammography is recom mended. BIRADS: Code 2, Benign Findings BREAST MAMMOGRAPHY-GENERAL OBSERVATION: The false negative rate for mammography is 15 to 20%. It cannot be u sed, therefore, to replace regular physical examination. A normal o r noncontributory mammogram report should also not deter the aggress tin further workup of any suspected palpable masses. Ayanna Naranjo R.TLa(R)(CT), R.T.(R), R.T.(R)(M) IM G BI PROCEDURES DX Shoulder Right 2+ Views (08/10/2015 8:07 AM DEVOPS CONSULTANT) Anatomical Region Laterality Modality Upper Extremity, Shoulder Right Radiographic I maging Specimen (Source) Anatomical Collection Method Collection Time Re ceived Time Location / / Volume Laterality 08/10/2015 8:07 AM DEVOPS CONSULTANT Addenda Addendum by Provider, Ankush Monson 08/10/2015 8:07 AM DEVOPS CONSULTANT RAD^^^MA XR Shoulder Right 2 or more views 08/10/2015 08:07:49 Narrative 08/10/2015 9:12 AM DEVOPS CONSULTANT Exam: ?? XR Shoulder Right 2 or more vie ws Clinical history: follow up sclerotic le bill Comparison: 12/08/2014 Findings: There are mild degenerative ch madison of the acromioclavicular joint. There is subchondral change in th e greater tuberosity. The humeral acromial interval is within norm al limits. The proximal humerus is intact. The right upper thora x is unremarkable. Impression: No significant change. No ev idence for fracture or dislocation. Procedure Note Len Diaz M.D. / Provider, Kumar ulloa M.D. - 02/12/2017 Exam: XR Shoulder Right 2 or more views Clinical history: follow up sclerotic le bill Comparison: 12/08/2014 Findings: There are mild degenerative ch madison of the acromioclavicular joint. There is subchondral change in th e greater tuberosity. The humeral acromial interval is within norm al limits. The proximal humerus is intact. The right upper thora x is unremarkable. Impression: No significant change. No ev idence for fracture or dislocation. Amelia Cantor(R)(CT), R.T.(R)(M) IMG DIAGNOSTIC IMAGING PROCEDURES documented in this encounter Visit Diagnoses Not on filedocumented in this encounter
--- OUTSIDE RECORDS SUMMARY | 2022-08-31 10:09 | XMS_ITS | Encounter Summary ---
:1945 Author Organization [facility] Address [address] [place] [address] Care Team Providers Name Role Phone Unavailable Primary Care Provider Unavailable Encounter Details Date Type Department Care Team Description 08/12/2016 Hospital Encounter [facility]X [facility] Klarissa Choe M.D. [address] [place] [address] [phone] (Wo rk) Social History Tobacco Use Types Packs/Day Years Used Date Smoking Tobacco: Never Assessed Sex Assigned at Date Recorded Female 10/12/2017 8:38 AM SAP SECURITY CONSULTANT documented as of this encounter Last Filed Vital Signs Vital Sign Reading Time Taken Comments Blood Pressure 101/52 08/12/2016 4:05 PM SAP SECURITY CONSULTANT Pulse 84 08/12/2016 4:05 PM SAP SECURITY CONSULTANT Temperature - - Respiratory Rate 18 08/12/2016 4:05 PM SAP SECURITY CONSULTANT Oxygen Saturation - - Inhaled Oxygen Concentration - - Weight 90 kg (198 lb 6.6 oz) 08/12/2016 12:44 PM SAP SECURITY CONSULTANT Height 161 cm (5' 3.39) 08/12/2016 4:05 PM SAP SECURITY CONSULTANT Body Mass Index 34.72 08/12/2016 12:44 PM SAP SECURITY CONSULTANT documented in this encounter Discharge Summaries Jenni Simpson RLaN. - 08/12/2016 3:41 PM CST Hospital Discharge Instructions [facility] [address] [facility] [address] [place], [place] [id number] Patient Discharge Instructions Name: CHRIS ROCKWELL Current Date: 08/12/2016 15:41:29 : 1945 12:00 AM [facility] Number: [id number] Patient Address: [address] [facility] [phone] Patient Primary Care Provider: Name: TIKI BRINK MD Discharge Diagnosis: [facility] in [place] would like to thank you for allowing us to assist you with yourhealthcare needs. The following includes patient education materials and information regarding your injury/illness. Comment: CHRIS ROCKWELL has been given the following list of follow-up instructions, medication list and patient education materials: Follow-up Instructions With: Address: When: JESUS CHOE [address] [place] [id number] Business (1) 08/21/2016 8:45 AM Comments: CALL DOCTOR WITH ANY QUESTIONS OR CONCERNS SEE TEACHING MATERIAL GIVEN FOR MORE INFORMATION NO DRIVING WHILE TAKING NARCOTIC PAIN MEDICATION Discharge Diet Diet Type: Resume previous diet Discharge Incision/Wound Care Wound Location: left wrist Keep Wound Dry: 24 Hours May Shower: In 24 Hours Dressing: Remove Day 1 Special Instructions: Replace post op bandage with band aid tomorrow Discharge Instruction General Activity Limitations: Activity as tolerated Driving Limitations: Don't drive while taking pain medicine Medications Medication/Strength How to Take Indications/Special Instructions/Comments/Notes for Patient Medication Changes/Routing albuterol (albuterol CFC free 90 mcg/inh inhalation aerosol) 2 puff(s), Inhalation, every 4 hours asneeded for Shortness of breath / Wheezing calcium-vitamin D (Calcium 600+D) 1 tab, Oral, once a day *fexofenadine (Kika 24 Hour Allergy) 180 mg, Oral, once a day hydrochlorothiazide (hydrochlorothiazide 25 mg oral tablet) 1 Tablet(s), Oral, once a day HYDROcodone-acetaminophen (Roanoke 5 mg-325 mg oral tablet) 1 to 2 tablets, Oral, every 6 hours as needed for Pain No more than 4,000mg acetaminophen/24hrs New Routed to Printer ibuprofen (ibuprofen 800 mg oral tablet) 1 Tablet(s), Oral, three times a day as needed for Pain Take with food lisinopril (lisinopril 5 mg oral tablet) 1 Tablet(s), Oral, once a day multivitamin (multivitamin) 1 tab, Oral, once a day pantoprazole (pantoprazole 20 mg oral delayed release tablet) 1 Tablet(s), Oral, once a day * You have let us know that you are not taking this medication as listed. Please talk with your primary care provider or the health care provider who prescribed the medication as soon as possible. Stop Taking the Following Medications: Medication list as of 08-12-16 15:41 Attention: If you have any medications at home that are not on this list, DO NOT take them until youcontact your provider for clarification. Give a copy of your medication list to your primary care provider. Update your medication list any time medications or doses are changed and carry your medication list at all times in case of emergency. Comment: Electronically Signed By: LITTLE SANDOVAL PA-C Signed On:12-AUG-2016 15:22:03 Your Upcoming Appointments Date Time Location Provider 08/21/2016 08:45 CARLIE Choe MD, Jesus Trotter Consider Using Patient Online Services Patient Online [...] if you dont have one. Go to [email or web address] and click on Create Your Account. Then, follow the directions to complete the online form. Youll be asked for your [facility] number which you can find at the top of this document. RAZA Hayes CATHERINE , have received the attached patient education materials/instructions and have verbalized understanding: Patient Signature Date Time Care Provider Signature Date Time Source: [facility] POWERCHART Document Id: [id number] SECURITY CONSULTANT Jenni Simpson R.N. - 08/12/2016 3:41 PM CST Hospital Discharge Medication List [place] [id number] [facility] [address] [place] [address] Discharge Medication List Name: CHRIS ROCKWELL Current Date: 08/12/2016 15:41:28 : 1945 12:00 AM [facility] Number: [id number] Patient Address: [address] [place] [phone] Patient Primary Care Provider: Name: TIKI BRINK MD Discharge Diagnosis: [facility] in [place] would like to thank you for allowing us to assist you with yourhealthcare needs. The following includes patient education materials and information regarding your injury/illness. Medications Medication/Strength How to Take Indications/Special Instructions/Comments/Notes for Patient Medication Changes/Routing albuterol (albuterol CFC free 90 mcg/inh inhalation aerosol) 2 puff(s), Inhalation, every 4 hours asneeded for Shortness of breath / Wheezing calcium-vitamin D (Calcium 600+D) 1 tab, Oral, once a day *fexofenadine (Kika 24 Hour Allergy) 180 mg, Oral, once a day hydrochlorothiazide (hydrochlorothiazide 25 mg oral tablet) 1 Tablet(s), Oral, once a day HYDROcodone-acetaminophen (Roanoke 5 mg-325 mg oral tablet) 1 to 2 tablets, Oral, every 6 hours as needed for Pain No more than 4,000mg acetaminophen/24hrs New Routed to Printer ibuprofen (ibuprofen 800 mg oral tablet) 1 Tablet(s), Oral, three times a day as needed for Pain Take with food lisinopril (lisinopril 5 mg oral tablet) 1 Tablet(s), Oral, once a day multivitamin (multivitamin) 1 tab, Oral, once a day pantoprazole (pantoprazole 20 mg oral delayed release tablet) 1 Tablet(s), Oral, once a day * You have let us know that you are not taking this medication as listed. Please talk with your primary care provider or the health care provider who prescribed the medication as soon as possible. Stop Taking the Following Medications: Medication list as of 08-12-16 15:41 Attention: If you have any medications at home that are not on this list, DO NOT take them until youcontact your provider for clarification. Give a copy of your medication list to your primary care provider. Update your medication list any time medications or doses are changed and carry your medication list at all times in case of emergency. Comment: Electronically Signed By: LITTLE SANDOVAL PA-C Signed On:12-AUG-2016 15:22:03 Source: [facility] [employer] Document Id: [id number] SECURITY CONSULTANT Jenni Simpson R.N. - 08/12/2016 3:41 PM CST Discharge Summary Discharge Summary Entered On: 08/12/2016 15:41 SAP SECURITY CONSULTANT Performed On: 08/12/2016 15:41 SAP SECURITY CONSULTANT by JENNI SIMPSON RN, DC Information Accompanied By : Nurse, Family Date/Time of Discharge : 08/12/2016 16:15 SAP SECURITY CONSULTANT JENNI SIMPSON RN - 08/12/2016 16:19 SAP SECURITY CONSULTANT Discharged to : Home with family care Current Home Treatments : None Home Equipment : None Professional Skilled Services : None Special Services and Community Resources : None Mode of Discharge : Wheelchair Discharge Transportation : Private vehicle JENNI SIMPSON RN - 08/12/2016 15:41 SAP SECURITY CONSULTANT Source: [facility] [employer] [address] [employer] Document Id: [id number] SAP SECURITY CONSULTANT!4 SECURITY CONSULTANT documented in this encounter Medications at Time [...] mg tablet documented as of this encounter Procedure Notes Cesia Chris - 08/12/2016 12:44 PM CST Preprocedure Checklist Document Has Been Updated Preprocedure Checklist Entered On: 08/06/2016 16:29 CDT Performed On: 08/12/2016 12:44 SAP SECURITY CONSULTANT by CESIA CHRIS RN Checklist Last Fluid Intake : 08/11/2016 22:00 SAP SECURITY CONSULTANT Last Food Intake : 08/11/2016 22:00 SAP SECURITY CONSULTANT Surgical Preparation : N/A MARCELA LEES RN - 08/12/2016 13:07 SAP SECURITY CONSULTANT Surgery Prep Grid Contacts/Glasses Removed : Yes (Comment: in sdc room [MARCELA LEES RN - 08/12/2016 13:07 SAP SECURITY CONSULTANT] ) Dentures Removed : NA Hairpins/Hairpiecies Removed : NA Hearing Aid Removed : NA Home Prep Complete : Yes (Comment: shower [MARCELA LEES RN - 08/12/2016 13:07 SAP SECURITY CONSULTANT] ) Jewelry/Piercing Removed : NA Makeup/Nail Azerbaijani Removed : NA Oral Hygiene : Yes Preop Scrub AM of Surgery : Yes (Comment: shower [MARCELA LEES RN - 08/12/2016 13:07 SAP SECURITY CONSULTANT] ) Preop Scrub Night Prior to Surgery : Yes (Comment: shower [MARCELA LEES RN - 08/12/2016 13:07 SAP SECURITY CONSULTANT] ) Prosthesis Removed : NA Tampon Removed : NA Verified - No hair products used : NA 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 : Yes (Comment: 1200 [MARCELA LEES RN - 08/12/2016 13:07 SAP SECURITY CONSULTANT] ) Wearing Patient Gown : Yes MARCELA LEES RN - 08/12/2016 13:07 SAP SECURITY CONSULTANT Pain Symptoms : No MARCELA LEES RN - 08/12/2016 13:07 SAP SECURITY CONSULTANT Patient Rights Grid Blood Consent Signed : NA Surgical/Procedure Consent Signed : Yes MARCELA LEES RN - 08/12/2016 13:07 SAP SECURITY CONSULTANT Family Location : [facility] in [facility] [place] area MARCELA LEES RN - 08/12/2016 13:07 SAP SECURITY CONSULTANT Checklist II Patient Safety Grid Allergy Band on and Verified : Yes Anesthesia Consult : Yes Band on for Limb Alert : NA Blood Band on and Verified : NA Current ECG in Medical Record : NA Current H&P in Medical Record : Yes Implants Verified : NA Medication Reconciliation on Chart : Yes (Comment: incomputer [MARCELA LEES RN - 08/12/2016 13:07 SAP SECURITY CONSULTANT] ) Pacemaker/AICD Verified : NA ID Band on and Verified : Yes Preop Medications Sent With Patient : Yes Relevant Images in Medical Record : NA Review of Labs : Yes Procedure/Site Verified by Patient/Family : Yes Procedure/Site Verified by RN : Yes Procedure/Site Verified by Physician : Yes Type & Screen/Type & Cross Completed : NA MARCELA LEES RN - 08/12/2016 13:07 SAP SECURITY CONSULTANT RN Who Verified Site : MARCELA LEES RN Physician Who Verified Site : JESUS CHOE MD, PATSY E RN - 08/12/2016 13:07 SAP SECURITY CONSULTANT CONSTANTINE Screening Known Obstructive Sleep Apnea : No - NOT diagnosed with CONSTANTINE CONSTANTINE Score : No qualifying data available. CONSTANTINE Results : No qualifying data available. CESIA CHRIS RN - 08/06/2016 16:29 CDT CONSTANTINE Assessment Neck Circumference - CONSTANTINE - HTN : 36/37 Total Sleep Apnea Clinical Score HTN Calc : 4 MARCELA LEES RN - 08/12/2016 13:07 SAP SECURITY CONSULTANT Do you have high blood pressure or have you been told to take medication for high blood pressure? : Yes Frequency of Snoring HTN : Sometimes (1-2 times per month) Frequency of Gasping, Choking, Snorting HTN : Never Total Number of Historical Features HTN : 0 GIO, CESIA Herber RN - 08/06/2016 16:29 CDT Valuables/Belongings Valuables/Belongings Grid Valuables at Bedside Clothes, Patient Valuables : Jacket, Pants, Shirt, Shoes, Undergarments Electronic Devices : Cell phone Monetary Items : Purse Personal Devices : Glasses MARCELA LEES RN - 08/12/2016 13:07 SAP SECURITY CONSULTANT Room Orientation/Facility Policy Reviewed : Yes Home Medication Disposition : None brought in with patient MARCELA LEES RN - 08/12/2016 13:07 SAP SECURITY CONSULTANT Education Preprocedure Education Grid Procedure Type : gang cyst removal Education Topics : Anesthesia/Sedation, Family instructions, Pain management, Plan of care, Tubes/Drains/IV's Individuals Taught : Patient, Spouse Barriers to Learning : None evident Teaching Method : Explanation, Printed materials Teaching Evaluation : Verbalizes understanding MARCELA LEES RN - 08/12/2016 13:07 SAP SECURITY CONSULTANT Preop Holding Mode of Arrival : Cart Preoperative Orders Complete : Yes MARCELA LEES RN - 08/12/2016 13:07 SAP SECURITY CONSULTANT Advance Directive Advanced Directives : No Advance Directive Additional Information : No MARCELA LEES RN - 08/12/2016 13:07 SAP SECURITY CONSULTANT Vital Signs Temperature Core : 36.8 DegC(Converted to: 98.2 DegF) Peripheral Pulse Rate : 88 /min Respiratory Rate : 16 /min Systolic Blood Pressure : 124 mmHg Diastolic Blood Pressure : 80 mmHg NIBP Mean : 95 mmHg BP Location : Right upper extremity SpO2 : 97 % Oxygen Saturation Monitoring Frequency : Intermittent Oxygen Therapy : Room air Height : 161 cm(Converted to: 5 ft 3 inch(es)) Actual Weight : 90.0 kg Actual Weight Conversion to Pounds : 198 lb Weight Source : Standing scale Height Source : Stated Body Mass Index : 34.72 kg/m2 MARCELA LEES RN - 08/12/2016 12:44 SAP SECURITY CONSULTANT Allergy (As Of: 08/12/2016 13:14:22 SAP SECURITY CONSULTANT) Allergies (Active) gentamicin Estimated Onset Date: Unspecified ; Created By: CHAPO FAJARDO LPN; Reaction Status: Active ; Category: Drug ; Substance: gentamicin ; Type: Allergy ; Updated By: CHAPO FAJARDO LPN; Reviewed Date: 08/12/2016 13:14 SAP SECURITY CONSULTANT Neosporin Estimated Onset Date: Unspecified ; Created By: CHAPO FAJARDO LPN; Reaction Status: Active ; Category: Drug ; Substance: Neosporin ; Type: Allergy ; Updated By: CHAPO FAJARDO LPN; Reviewed Date: 08/12/2016 13:14 SAP SECURITY CONSULTANT tobramycin Estimated Onset Date: Unspecified ; Created By: CHAPO FAJARDO LPN; Reaction Status: Active ; Category: Drug ; Substance: tobramycin ; Type: Allergy ; Updated By: CHAPO FAJARDO LPN; Reviewed Date: 08/12/2016 13:14 SAP SECURITY CONSULTANT Source: [employer] Document Id: [id number] SAP SECURITY CONSULTANT!74 documented in this encounter Nursing Notes Cesia Chris - 08/06/2016 4:32 PM CDT Preprocedure Education Preprocedure Education Entered On: 08/06/2016 16:33 CDT Performed On: 08/06/2016 16:32 CDT by CESIA CHRIS RN Education Preprocedure Education Grid Procedure Type : ganglion cyst Education Topics : Other: (Comment: NPO protocol Medicine regime per preop guidelines (form #[id number])Jewelry removal Admission/check-in Anesthesia restrictions (assistance 24 hours after surgery, 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, [address]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) Hygiene/skin-prep What to bring (insurance cards, meds in cont ainers) [CESIA CHRIS RN - 08/06/2016 16:32 CDT] ) Individuals Taught : Patient Barriers to Learning : None evident Teaching Method : Explanation Teaching Evaluation : Verbalizes understanding CESIA CHRIS RN - 08/06/2016 16:32 CDT Source: [employer] Document Id: [id number] Cesia Chris - 08/06/2016 4:26 PM CDT Day Surgery Admission History/Asmt Adult Document Has Been Updated Day Surgery Admission History/Asmt Adult Entered On: 08/06/2016 16:29 CDT Performed On: 08/06/2016 16:26 CDT by CESIA CHRIS RN General Info Information Given By : Patient MARCELA LEES RN - 08/12/2016 13:14 SAP SECURITY CONSULTANT Preferred Name : romain Admitted From : Non-Health Care Facility Point of Origin Mode of Arrival : Ambulatory Present in Room During Exam/Procedure : Spouse Preferred Communication Mode : Verbal Languages : Divehi Is Patient Female and 13-50 no hysterectomy : No CESIA CHRIS RN - 08/06/2016 16:26 CDT Allergy (As Of: 08/12/2016 13:20:16 SAP SECURITY CONSULTANT) Allergies (Active) gentamicin Estimated Onset Date: Unspecified ; Created By: CHAPO FAJARDO LPN; Reaction Status: Active ; Category: Drug ; Substance: gentamicin ; Type: Allergy ; Updated By: CHAPO FAJARDO LPN; Reviewed Date: 08/12/2016 13:14 SAP SECURITY CONSULTANT Neosporin Estimated Onset Date: Unspecified ; Created By: CHAPO FAJARDO LPN; Reaction Status: Active ; Category: Drug ; Substance: Neosporin ; Type: Allergy ; Updated By: CHAPO FAJARDO LPN; Reviewed Date: 08/12/2016 13:14 SAP SECURITY CONSULTANT tobramycin Estimated Onset Date: Unspecified ; Created By: CHAPO FAJARDO LPN; Reaction Status: Active ; Category: Drug ; Substance: tobramycin ; Type: Allergy ; Updated By: CHAPO FAJARDO LPN; Reviewed Date: 08/12/2016 13:14 SAP SECURITY CONSULTANT Anesth/Transfusion Anesthesia/Transfusions : Prior anesthesia CESIA CHRIS RN - 08/06/2016 16:26 CDT ID Screen Drug Resistant Organism : No MARCELA LEES RN - 08/12/2016 13:14 SAP SECURITY CONSULTANT Nutrition Home Diet : Regular Appetite : Good Eating Difficulties : None Feeding Ability : Complete independence MARCELA LEES RN - 08/12/2016 13:14 SAP SECURITY CONSULTANT Have you recently lost weight without trying? : No Decreased Appetite Nutrition : No Tube Feedings or Parenteral Nutrition : No MST Score : 0 CESIA CHRIS RN - 08/06/2016 16:26 CDT Home Environment Mobility Assistance Prior to Admission : Independent MARCELA LEES RN - 08/12/2016 13:14 SAP SECURITY CONSULTANT Current Daily Living Assistance : None Living Situation : Home with family alf Equipment : None Sensory Deficits : Other: glasses CESIA CHRIS RN - 08/06/2016 16:26 CDT Dependent Habits Exposure to Tobacco Smoke : Other: former smoker 2007 Smoking Status : Former smoker Tobacco 2A : Yes Tobacco Use/Currently Using : No Tobacco Use/Last 30 Days : No Tobacco Use/Last 12 months : No Tobacco Last Use/Year : 2007 CESIA CHRIS RN - 08/06/2016 16:26 CDT Caffeine Use Grid Caffeine Use : Current Type : Chocolate, Coffee Frequency : Daily Amount : 2-3 CESIA CHRIS RN - 08/06/2016 16:26 CDT Recreational Drug Use Grid Drug Use : None CESIA CHRIS RN - 08/06/2016 16:26 CDT Psychosocial Adult Emotional Support Available : Yes Caregiver Post Hospital Care : Yes Coping : Effective MARCELA LEES RN - 08/12/2016 13:14 SAP SECURITY CONSULTANT Domestic Abuse Concerns : None Behavioral Health Screen/Safety Assmt : No Taoism Preference : No qualifying data available. CESIA CHRIS RN - 08/06/2016 16:26 CDT Advance Directive Advanced Directives : No Advance Directive Additional Information : No CESIA HCRIS RN - 08/06/2016 16:26 CDT Educ Needs Patient/Family Education Needs : Activity limitations/expectations, Bathing/hygiene, Medications, Nutrition/Diet, Pain management, Plan of care, Postoperative instructions, Safety, fall, Treatments/Procedures/Tests, Wound care MARCELA LEES RN - 08/12/2016 13:14 SAP SECURITY CONSULTANT MARCELA LEES RN - 08/12/2016 13:14 SAP SECURITY CONSULTANT Learning Style Preference Adult Grid Patient : Printed materials, Verbal explanation Family : Printed materials, Verbal explanation CESIA CHRIS RN - 08/06/2016 16:26 CDT Education Preprocedure Education Grid Procedure Type : gang cyst removal on the left wrist Education Topics : Anesthesia/Sedation, Family instructions, Pain management, Plan of care, Tubes/Drains/IV's Individuals Taught : Patient, Spouse Barriers to Learning : None evident Teaching Method : Explanation, Printed materials Teaching Evaluation : Verbalizes understanding MARCELA LEES RN - 08/12/2016 13:14 SAP SECURITY CONSULTANT Outpatient Assessment Procedural Respiratory : Respirations unlabored, Respiratory pattern regular, Breath sounds clear all lobes, No cough Procedural Cardiovascular : Heart rhythm regular, Skin color normal for ethnicity, Skin dry and warm Procedural Antiembolism Device : Sequential Compression Device Procedural Neurological : Alert, Oriented x 3, Gait steady, No swallowing difficulty/aspiration risk Procedural Gastrointestinal : Abdomen non-tender and soft, Bowel sounds all quadrants Procedural Genitourinary : Voiding, no difficulties Procedural Integumentary : Skin integrity intact Procedural Musculoskeletal : Activity tolerance without distress MARCELA LEES RN - 08/12/2016 13:14 SAP SECURITY CONSULTANT Psycho/Emotional Pain Symptoms : No Affect/Behavior : Calm, Cooperative, Appropriate MARCELA LEES RN - 08/12/2016 13:14 SAP SECURITY CONSULTANT Coping Grid Uses effective strategies : Yes Family supportive and involved in care : Yes MARCELA LEES RN - 08/12/2016 13:14 SAP SECURITY CONSULTANT Safety Grid Vision, Hearing, Mobility Adequate to Meet Safety Needs : Yes MARCELA LEES RN - 08/12/2016 13:14 SAP SECURITY CONSULTANT Peripheral IV Peripheral IV Assess/Intervention Grid Peripheral IV #1 IV Activity : Start Number of Attempts : 1 Date of Insertion : 08/12/2016 SAP SECURITY CONSULTANT IV Site : Hand Laterality : Right Catheter Size : 20 Catheter Type : Over the needle Site Condition : No complications Dressing/ Activity : Dry, Intact, Transparent Flow/ Patency : No complications MARCELA LEES RN - 08/12/2016 13:14 SAP SECURITY CONSULTANT Source: [employer] Document Id: [id number] SAP SECURITY CONSULTANT!57 documented in this encounter OR Notes Op Note - Jesus Choe M.D. - 08/12/2016 12:00 AM CST [id number] DATE: 08/12/2016 PREOPERATIVE DIAGNOSIS: Left wrist dorsal ganglion. POSTOPERATIVE DIAGNOSIS: Left wrist dorsal ganglion. SURGEON: Jesus Choe M.D. ACADEMIC INTERN: Richard Turcios OPERATION: Excision of left wrist dorsal ganglion. ANESTHESIA: MAC. ESTIMATED BLOOD LOSS: Minimal. COMPLICATIONS: None. DESCRIPTION OF OPERATIVE PROCEDURE: The patient was brought to the operating room, placed in supine position. Patient was prepped and draped in usual sterile fashion. Patient was identified using standard preoperative pause. Attention was turned to the patient's left upper extremity which was exsanguinated using an Esmarch bandage, using an upper extremity tourniquet, which was inflated to 250 mmHg. A transverse incision was made over the dorsum of the wrist over the carpus. Blunt and sharp dissection was used to then dissect out the ganglion cyst. The cyst was dissected down to the wrist capsule and then excised with a small portion of the wrist capsule. The wound was then irrigated with normal sa line and the skin was closed using 4-0 Prolene suture in an interrupted fashion. Clean, dry dressings were then applied. The patient tolerated the procedure well. There were no complications. Jesus Choe M.D./cat Electronically Signed By: JESUS CHOE MD On: 08/20/2016 08:28 AM Source: [email or web address] Document Id: [id number] SECURITY CONSULTANT documented in this encounter Miscellaneous Notes Miscellaneous - April Hendrix, R.N. - 08/13/2016 12:22 PM CST Discharge Follow Up Discharge Follow Up Entered On: 08/13/2016 12:22 SAP SECURITY CONSULTANT Performed On: 08/13/2016 12:22 SAP SECURITY CONSULTANT by APRIL HENDRIX RN Discharge Follow Up Follow Up Completed : Via telephone Procedure Date : 08/12/2016 SAP SECURITY CONSULTANT Proceduralist : JESUS CHOE MD Reason for Follow Up : routine call back APRIL HENDRIX RN - 08/13/2016 12:22 SAP SECURITY CONSULTANT Uncontrolled Pain Uncontrolled Pain : No Bleeding : No Headache : No Dizziness : No Nausea/Vomiting : No Respiratory Symptoms : No Fever/Chills : No Numbness/Tingling : No Swelling : No Voiding Problems : No If yes to any symptoms, was MD contacted? : No Have symptoms improved? : No Do you have any questions about your discharge instructions? : No Do you have any questions or concerns regarding your medications? : No Other : No APRIL HENDRIX RN - 08/13/2016 12:22 SAP SECURITY CONSULTANT Source: [facility] [employer] Document Id: [id number] SAP SECURITY CONSULTANT!22 SECURITY CONSULTANT Miscellaneous - Conversion, Historical Provider Ser - 08/12/2016 4:15 PM SAP SECURITY CONSULTANT Coding Summary-Paper Based CODING DATE: 08/13/2016 FINAL [facility] STATUS: * Discharged to Home or Self Care PAYOR: Medicare Advantage APC DESCRIPTION 5121 Level1 Musculoskeletal Procedures ADMIT DX: REASON FOR VISIT DX: FINAL DX: PRINCIPAL: M67.432 Ganglion, left wrist SECONDARY: I10 Essential (primary) hypertension K21.9 Gastro-esophageal reflux disease without esophagitis PYMT PROC APC STAT DESCRIPTION DOCTOR NAME DATE 5120 T EXCISION GANGLION WRIST JESUS CHOE MD 08/12/2016 DORSAL/VOLAR PRIMARY LT LEFT SIDE (USED TO IDENTIFY PROCEDURES PERFORMED ON THE LEFT SIDE OF THE BODY) NOTE: The code number assigned matches the documented diagnosis and / or procedure in the patient's chart. However, the narrative phrase printed from the coding software may appear abbreviated, or result in slightly different terminology. Coded By: MARILEE TREVINO DIESEL TRAILER MECHANIC Date Saved: 08/13/2016 09:44 pm [facility] Document Id: [id number] Miscellaneous - Jenni Simpson RSuresh - 08/12/2016 4:05 PM CST Adult Postprocedure Assessment Adult Postprocedure Assessment Entered On: 08/12/2016 16:08 SAP SECURITY CONSULTANT Performed On: 08/12/2016 16:05 SAP SECURITY CONSULTANT by JENNI SIMPSON RN Vital Signs Peripheral Pulse Rate : 84 /min Respiratory Rate : 18 /min Systolic Blood Pressure : 101 mmHg Diastolic Blood Pressure : 52 mmHg NIBP Mean : 68 mmHg BP Location : Right upper extremity SpO2 : 99 % Oxygen Saturation Monitoring Frequency : Continuous Oxygen Therapy : Room air Height : 161 cm(Converted to: 5 ft 3 inch(es)) JENNI SIMPSON RN - 08/12/2016 16:05 SAP SECURITY CONSULTANT General Level of Consciousness : Alert Pain Symptoms : No JENNI SIMPSON - 08/12/2016 16:05 SAP SECURITY CONSULTANT Respiratory Respirations : Unlabored Respiratory Pattern : Regular JENNI SIMPSON - 08/12/2016 16:05 SAP SECURITY CONSULTANT GI/ Nausea Symptoms : No JENNI SIMPSON - 08/12/2016 16:05 SAP SECURITY CONSULTANT Integumentary Mucous Membrane Color : [place] JENNI SIMPSONMAIA - 08/12/2016 16:05 SAP SECURITY CONSULTANT Incision/Wound Incision/Wound Care Grid Activity : Assessed Dressing Type : Surgical incision Location : Hand Laterality : Left Drainage : None JENNI SIMPSONMAIA - 08/12/2016 16:05 SAP SECURITY CONSULTANT Peripheral IV Peripheral IV Assess/Intervention Grid Peripheral IV #1 IV Activity : Discontinue Removal : Catheter intact, Hemostasis within expected timeframe Date of Insertion : 08/12/2016 SAP SECURITY CONSULTANT Discontinued Date : 08/12/2016 SAP SECURITY CONSULTANT IV Site : Hand Laterality : Right Catheter Size : 20 JENNI SIMPSONMAIA - 08/12/2016 16:05 SAP SECURITY CONSULTANT I&O Oral Intake : 100 mL Other Intake : 900 mL (Comment: 900ml iv fluid [JENNI SIMPSONMAIA - 08/12/2016 16:05 SAP SECURITY CONSULTANT] ) JENNI SIMPSONMAIA - 08/12/2016 16:05 SAP SECURITY CONSULTANT PARSAP Activity Status : Moves 4 extremities voluntarily or on command Dressing : Dry and clean Respiratory Component : Able to deep breathe and cough freely Pain : Pain free Circulation Component : BP 20% of preanesthetic level Ambulation : Able to stand up and walk straight Consciousness : Fully awake Fasting and Feeding : Able to drink fluids Oxygen Saturation - Sedation : Can maintain > 92% on room air Urine Output, PARSAP : Not assessed PARSAP Score : 20 JENNI SIMPSONMAIA - 08/12/2016 16:05 SAP SECURITY CONSULTANT Breen Breen Agitation Sedation Scale (RASS) : Alert and calm RASS Score : 0 JENNI SIMPSONMAIA - 08/12/2016 16:05 SAP SECURITY CONSULTANT Education General Patient Education Powergrid Topics : Plan of care (Comment: patient stable post op, cont to deny pain, dressing left wrist dry and intact cms wnl's, has tolerated liquids, expressed understanding of dc teaching, feels ready for discharge, discharged with belongings. [JENNI SIMPSON RN - 08/12/2016 16:17 SAP SECURITY CONSULTANT] ) Individuals Taught : Patient, Spouse Barriers to Learning : None evident Teaching Method : Explanation, Printed materials Teaching Evaluation : Verbalizes understanding JENNI SIMPSON RN - 08/12/2016 16:17 SAP SECURITY CONSULTANT Source: [facility] POWERCHART Document Id: [id number] SAP SECURITY CONSULTANT!9 SECURITY CONSULTANT Miscellaneous - Jenni Simpson R.N. - 08/12/2016 3:46 PM CST Adult Postprocedure Assessment Adult Postprocedure Assessment Entered On: 08/12/2016 15:48 SAP SECURITY CONSULTANT Performed On: 08/12/2016 15:46 SAP SECURITY CONSULTANT by JENNI SIMPSON RN Vital Signs Peripheral Pulse Rate : 89 /min Respiratory Rate : 18 /min Systolic Blood Pressure : 110 mmHg Diastolic Blood Pressure : 62 mmHg NIBP Mean : 78 mmHg BP Location : Right upper extremity SpO2 : 99 % Oxygen Saturation Monitoring Frequency : Continuous Oxygen Therapy : Room air Height : 161 cm(Converted to: 5 ft 3 inch(es)) JENNI SIMPSON RN - 08/12/2016 15:46 SAP SECURITY CONSULTANT General Level of Consciousness : Alert Pain Symptoms : No JENNI SIMPSON RN - 08/12/2016 15:46 SAP SECURITY CONSULTANT Respiratory Respirations : Unlabored Respiratory Pattern : Regular JENNI SIMPSON RN - 08/12/2016 15:46 SAP SECURITY CONSULTANT GI/ Nausea Symptoms : No JENNI SIMPSON RN - 08/12/2016 15:46 SAP SECURITY CONSULTANT Integumentary Mucous Membrane Color : [place] JENNI SIMPSON RN - 08/12/2016 15:46 SAP SECURITY CONSULTANT Incision/Wound Incision/Wound Care Grid Activity : Assessed Dressing Type : Surgical incision Location : Hand Laterality : Left Drainage : None JENNI SIMPSON RN - 08/12/2016 15:46 SAP SECURITY CONSULTANT Breen Breen Agitation Sedation Scale (RASS) : Alert and calm RASS Score : 0 JENNI SIMPSON RN - 08/12/2016 15:46 SAP SECURITY CONSULTANT Education General Patient Education Powergrid Topics : Activity limitations/expectations, Discharge instructions/Medication list, Medication dosage, route, scheduling, Nutrition/Diet, Pain Management, Physical limitations, Postoperative instructions, Safety, fall, When to call health care provider Individuals Taught : Patient, Spouse Barriers to Learning : None evident Teaching Method : Explanation, Printed materials Teaching Evaluation : Verbalizes understanding JENNI SIMPSON RN - 08/12/2016 15:46 SAP SECURITY CONSULTANT Source: [facility] [employer] Document Id: [id number] SAP SECURITY CONSULTANT!41 SECURITY CONSULTANT Luis Miguel - Jenni Simpson R.N. - 08/12/2016 3:41 PM CST Valuables/Belongings Valuables/Belongings Entered On: 08/12/2016 15:41 SAP SECURITY CONSULTANT Performed On: 08/12/2016 15:41 SAP SECURITY CONSULTANT by JENNI SIMPSON RN Valuables/Belongings Valuables/Belongings Grid Valuables at Bedside Clothes, Patient Valuables : Jacket, Pants, Shirt, Shoes, Undergarments Electronic Devices : Cell phone Monetary Items : Purse Personal Devices : Glasses JENNI SIMPSON RN - 08/12/2016 15:41 SAP SECURITY CONSULTANT Room Orientation/Facility Policy Reviewed : Yes Belongings Sent Home With : HOME WITH BELONGINGS Home Medication Disposition : None brought in with patient JENNI SIMPSON RN - 08/12/2016 15:41 SAP SECURITY CONSULTANT Source: [facility] [employer] [address] [employer] Document Id: [id number] SAP SECURITY CONSULTANT!11 SECURITY CONSULTANT Jenni Remy R.N. - 08/12/2016 3:39 PM CST Hospital Patient Education The following Patient Education Materials have been given to the patient: Patient Education Materials: Source: [facility] [employer] Document Id: [id number] SECURITY CONSULTANT Jenni Remy R.N. - 08/12/2016 3:31 PM CST Adult Postprocedure Assessment Adult Postprocedure Assessment Entered On: 08/12/2016 15:32 SAP SECURITY CONSULTANT Performed On: 08/12/2016 15:31 SAP SECURITY CONSULTANT by JENNI SIMPSON RN Vital Signs Peripheral Pulse Rate : 87 /min Respiratory Rate : 16 /min Systolic Blood Pressure : 102 mmHg Diastolic Blood Pressure : 62 mmHg NIBP Mean : 75 mmHg BP Location : Right upper extremity SpO2 : 99 % Oxygen Saturation Monitoring Frequency : Continuous Oxygen Therapy : Room air Height : 161 cm(Converted to: 5 ft 3 inch(es)) JENNI SIMPSON RN - 08/12/2016 15:31 SAP SECURITY CONSULTANT General Level of Consciousness : Alert JENNI SIMPSON RN - 08/12/2016 15:31 SAP SECURITY CONSULTANT Breen Breen Agitation Sedation Scale (RASS) : Alert and calm RASS Score : 0 JENNI SIMPSON RN - 08/12/2016 15:31 SAP SECURITY CONSULTANT Source: [facility] [employer] Document Id: [id number] SAP SECURITY CONSULTANT!17 SECURITY CONSULTANT Miscellaneous - Jenni Simpson R.N. - 08/12/2016 3:16 PM CST Adult Postprocedure Assessment Adult Postprocedure Assessment Entered On: 08/12/2016 15:19 SAP SECURITY CONSULTANT Performed On: 08/12/2016 15:16 SAP SECURITY CONSULTANT by JENNI SIMPSON RN Vital Signs Temperature Core : 36 DegC(Converted to: 96.8 DegF) (LOW) Peripheral Pulse Rate : 83 /min Respiratory Rate : 16 /min Systolic Blood Pressure : 108 mmHg Diastolic Blood Pressure : 57 mmHg NIBP Mean : 74 mmHg BP Location : Right upper extremity SpO2 : 99 % Oxygen Saturation Monitoring Frequency : Continuous Oxygen Therapy : Room air Height : 161 cm(Converted to: 5 ft 3 inch(es)) JENNI SIMPSON RN - 08/12/2016 15:16 SAP SECURITY CONSULTANT General Level of Consciousness : Alert Pain Symptoms : No JENNI SIMPSON RN - 08/12/2016 15:16 SAP SECURITY CONSULTANT Respiratory Respirations : Unlabored Respiratory Pattern : Regular JENNI SIMPSON LU RN - 08/12/2016 15:16 SAP SECURITY CONSULTANT GI/ Nausea Symptoms : No JENNI SIMPSON LU RN - 08/12/2016 15:16 SAP SECURITY CONSULTANT Integumentary Mucous Membrane Color : [place] JENNI SIMPSONROSY RN - 08/12/2016 15:16 SAP SECURITY CONSULTANT Incision/Wound Incision/Wound Care Grid Activity : Assessed Dressing Type : Surgical incision Location : Hand Laterality : Left Drainage : None Wound Dressing : Gauze bandage Neurovascular Status : Other: cms wnl's JENNI SIMPSON LU RN - 08/12/2016 15:16 SAP SECURITY CONSULTANT Peripheral IV Peripheral IV Assess/Intervention Grid Peripheral IV #1 IV Activity : Assessment Date of Insertion : 08/12/2016 SAP SECURITY CONSULTANT IV Site : Hand Laterality : Right Catheter Size : 20 Site Condition : No complications JENNI SIMPSONROSY RN - 08/12/2016 15:16 SAP SECURITY CONSULTANT Breen Breen Agitation Sedation Scale (RASS) : Alert and calm RASS Score : 0 MAYTE SIMPSONNATHALIE LEIGH RN - 08/12/2016 15:16 SAP SECURITY CONSULTANT [facility] Document Id: [id number] SAP SECURITY CONSULTANT!45 SECURITY CONSULTANT Miscellaneous - Marcela Lees RSuresh - 08/12/2016 12:53 PM CST Height/Length Height/Length Entered On: 08/12/2016 12:53 SAP SECURITY CONSULTANT Performed On: 08/12/2016 12:53 SAP SECURITY CONSULTANT by MARCELA LEES RN Height/Length Height : 161 cm MARCELA LEES RN - 08/12/2016 12:53 SAP SECURITY CONSULTANT Source: [facility] [employer] [address] [employer] Document Id: [id number] SAP SECURITY CONSULTANT!3 SECURITY CONSULTANT documented in this encounter Plan of Treatment Not on filedocumented as of this encounter Visit Diagnoses Not on filedocumented in this encounter
--- OUTSIDE RECORDS SUMMARY | 2022-08-31 10:09 | XMS_ITS | Encounter Summary ---
:1945 Author Organization [facility] Address [address] [place] [address] Care Team Providers Name Role Phone Unavailable Primary Care Provider Unavailable Encounter Details Date Type Department Care Team Description 02/20/2016 Hospital Encounter [facility] Tiki Paige M.D. Social History Tobacco Use Types Packs/Day Years Used Date Smoking Tobacco: Never Assessed Sex Assigned at Date Recorded Female 10/12/2017 8:38 AM [employer] documented as of this encounter Last Filed Vital Signs Vital Sign Reading Time Taken Comments Blood Pressure 134/84 02/20/2016 2:04 PM CDT Pulse 80 02/20/2016 2:04 PM CDT Temperature - - Respiratory Rate 20 02/20/2016 2:04 PM CDT Oxygen Saturation - - Inhaled Oxygen Concentration - - Weight 91.1 kg (200 lb 13.4 oz) 02/20/2016 2:04 PM CDT Height 159.4 cm (5' 2.76) 02/20/2016 2:04 PM CDT Body Mass Index 35.85 02/20/2016 2:04 PM CDT documented in this [...] encounter Progress Notes Tiki Davidson M.D. - 02/20/2016 1:57 PM CDT [id number] CHIEF COMPLAINT/REASON FOR VISIT A 70-year-old female, who has been coughing and short of breath for about a week. She feels like herchest is full. She is short of breath with exertion. There was a little bit loose cough on Thursday, but she could not sleep. She realized she was having accessory muscle use after she went to a latter day group. She is having pale yellow phlegm. Her nose has clear rhinorrhea. No fever. PAST MEDICAL/SURGICAL HISTORY Past medical history reviewed on EMR. SOCIAL HISTORY She quit smoking and drinks chocolate and coffee. MEDICATIONS Reviewed and reconciled on EMR. ALLERGIES GENTAMICIN. NEOSPORIN. TOBRAMYCIN. SYSTEMS REVIEW Pertinent review of systems as in HPI. Remainder negative. VITAL SIGNS Blood pressure 134/84, pulse 80, respirations 20, temp 37.5. Weight 91.1 kg, height 159.4 cm. PHYSICAL EXAMINATION ENT: Tympanic membranes are clear. Oropharynx is erythematous with some white phlegm in the posterior. NECK: Supple without lymphadenopathy or thyromegaly. CHEST: With wheeze throughout. CARDIOVASCULAR: Regular rate and rhythm. No murmur. IMPRESSION/REPORT/PLAN Asthma, acute exacerbation. PLAN: We are going to give her a Z-Chris per instructions, prednisone 20 mg 2 tabs daily for 5 days and refilled her albuterol metered-dose inhaler. If not improving, she should return. ADMINISTRATIVE BILLING Total time spent was 15 minutes with 10 minutes in counseling and coordination of care. Tiki Davidson M.D./pos Electronically Signed By: TIKI DAVIDSON MD On: 02/26/2016 10:34 PM Source: [facility] MHSDOLBEYNONRADSYS Document Id: [id number] documented in this encounter Nursing Notes Tiki Davidson M.D. - 02/20/2016 2:52 PM CDT Ambulatory Patient Education The following [...] or fingernails turning mathews or blue ?? [id number] [facility], [address] [place] [address]. All rights reserved. This information is not intended as a substitute for professional medical care. Always follow your healthcare professional's instructions. This document has images extracted. Please consider using Appsindep for all your patient education needs. Source: [facility] POWERCHART Document Id: [id number] documented in this encounter Miscellaneous Notes Miscellaneous - Tiki Davidson M.D. - 02/20/2016 2:52 PM CDT Ambulatory Patient Summary [facility] [address] [place] [address] [phone] Visit Information Name: RAZA CHRIS [facility] Number: [id number] Current Date: 02/20/2016 14:52:31 Physicians Attending Provider: TIKI DAVIDSON MD Primary Care Provider: TIKI DAVIDSON MD RAZA CHRIS has been given [...] asneeded for Shortness of breath / Wheezing Routed to [address] [place] [address] azithromycin (Azithromycin 5 Day Dose Pack 250 mg oral tablet) 2 tablets on day 1, then 1 tablet on days 2-5, Oral, as directed x 5 day(s) New Routed to [address] [place] [address] calcium-vitamin D (Calcium 600+D) 1 tab, Oral, [...] day predniSONE (predniSONE 20 mg oral tablet) 2 Tablet(s), Oral, once a day x 5 day(s) New Routed to [address] [place] [address] Stop Taking the Following Medications: Medication list as of 02-20-16 14:52 Attention: If you have any medications at [...] Electronically Signed By: TIKI DAVIDSON MD Signed On:20-FEB-2016 14:52:08 Your Allergies & Intolerances Substance Reaction Symptoms [...] or fingernails turning mathews or blue ?? [phone] [facility], [address] [place] [address], [place] [address]. All rights reserved. This information is not [...] if you dont have one. Go to [email or web address] and click on Create Your Account. Then, follow the directions to complete the online form. Youll be asked for your [facility] number which you can find at the top of this document. Your Goals/Additional instructions: This document has images extracted. Please consider using Apps[employer] for all your patient education needs. Source: [facility] POWERCHART Document Id: [id number] Miscellaneous - Tiki Davidson M.D. - 02/20/2016 2:52 PM CDT Ambulatory Discharge Medication List [facility] [address] [place] [address] [phone] Visit Information Name: CHRIS ROCKWELL [facility] Number: [id number] Visit Date: 02/20/2016 14:52:30 Attending Provider: TIKI DAVIDSON MD Primary Care [...] asneeded for Shortness of breath / Wheezing Routed to [address] [address] azithromycin (Azithromycin 5 Day Dose Pack 250 mg oral tablet) 2 tablets on day 1, then 1 tablet on days 2-5, Oral, as directed x 5 day(s) New Routed to [address] [address] calcium-vitamin D (Calcium 600+D) 1 tab, Oral, [...] day predniSONE (predniSONE 20 mg oral tablet) 2 Tablet(s), Oral, once a day x 5 day(s) New Routed to [address] [address] Stop Taking the Following Medications: Medication list as of 02-20-16 14:52 Attention: If you have any medications at [...] Electronically Signed By: TIKI DAVIDSON MD Signed On:20-FEB-2016 14:52:08 Additional Information: Yes - . Source: [facility] POWERCHART Document Id: [id number] Miscellaneous - Chapo Fajardo L.P.N. - 02/20/2016 2:04 PM CDT Adult Pension Administrator Intake/History Adult Pension Administrator Intake/History Entered On: 02/20/2016 14:07 CDT Performed On: 02/20/2016 14:04 CDT by CHAPO FAJARDO LPN Intake Chief Complaint : cough and SOB for approx 1 week. Temperature Core : 37.5 DegC(Converted to: 99.5 DegF) Peripheral Pulse Rate : 80 /min Respiratory Rate : 20 /min Heart Rhythm : Regular Systolic Blood Pressure : 134 mmHg Diastolic Blood Pressure : 84 mmHg NIBP Mean : 101 mmHg BP Location : Left upper extremity Blood Pressure Cuff Size : Large Height : 159.4 cm(Converted to: 5 ft 3 inch(es), 63 inch(es)) Actual Weight : 91.1 kg(Converted to: 200 lb 13 oz) Weight Source : Standing scale Dosing Weight Clinic : 91.1 kg Clinic BSA : 2.01 Body Mass Index : 35.85 kg/m2 CHAPO FAJARDO LPN - 02/20/2016 14:04 CDT General Info Information Given By : Patient Preferred Communication Mode : Verbal Languages : Lithuanian Is Patient Female and 13-50 no hysterectomy : No CHAPO FAJARDO LPN - 02/20/2016 14:04 CDT Subjective Pain Symptoms : No CHAPO FAJARDO LPN - 02/20/2016 14:04 CDT Dependent Habits Exposure to Tobacco Smoke : Other: former smoker Smoking Status : Former smoker Tobacco 2A : Yes Tobacco Use/Currently Using : No Tobacco Use/Last 30 Days : No Tobacco Use/Last 12 months : No CHAPO FAJARDO LPN - 02/20/2016 14:04 CDT Caffeine Use Grid Caffeine Use : Current Type : Chocolate, Coffee Frequency : Daily Amount : 2-3 CHAPO FAJARDO LPN - 02/20/2016 14:04 CDT Recreational Drug Use Grid Drug Use : None CHAPO FAJARDO LPN - 02/20/2016 14:04 CDT Source: [facility] [employer] Document Id: [id number] CDT!41 documented in this encounter Plan of Treatment Not on filedocumented as of this encounter Visit Diagnoses Not on filedocumented in this encounter
--- OUTSIDE RECORDS SUMMARY | 2022-08-31 10:09 | XMS_ITS | Encounter Summary ---
:1945 Author Organization [facility] Address [address] [place] [address] Care Team Providers Name Role Phone Unavailable Primary Care Provider Unavailable Encounter Details Date Type Department Care Team Description 12/04/2014 Hospital Encounter [facility] Tiki Paige M.D. 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 Last Filed Vital Signs Vital Sign Reading Time Taken Comments Blood Pressure 106/76 12/04/2014 10:02 AM POULTRY OFFAL WORKER Pulse 80 12/04/2014 10:02 AM POULTRY OFFAL WORKER Temperature - - Respiratory Rate 20 12/04/2014 10:02 AM POULTRY OFFAL WORKER Oxygen Saturation - - Inhaled Oxygen Concentration - - Weight 97.8 kg (215 lb 9.8 oz) 12/04/2014 10:02 AM POULTRY OFFAL WORKER Height 158 cm (5' 2.21) 12/04/2014 10:02 AM POULTRY OFFAL WORKER Body Mass Index 39.18 12/04/2014 10:02 AM POULTRY OFFAL WORKER documented in this encounter Medications at Time [...] documented as of this encounter H&P Notes Tiki Davidson K, M.D. - 12/04/2014 9:53 AM CST [id number] CHIEF COMPLAINT/REASON FOR VISIT A 59-year-old female, here for wellness physical. She also has some soreness in her right upper arm,and that has been going on for several months. Plan on setting up her own mammogram, and surprisingly, she did not take her blood pressure medicines today and her blood pressure is in good shape. PAST MEDICAL/SURGICAL HISTORY Arthropathy. Benign hypertension. 3, para 3. Reflux esophagitis. Endometrial biopsy in May of 2013. Pap smear in 2010 Colonoscopy, 2005. Closed fracture of the arm, 1954. Tonsillectomy adenoidectomy in 1949. Fracture of the hand. SOCIAL HISTORY She stopped smoking in 2006, drinks chocolate and coffee daily 2 to 3 cups. FAMILY HISTORY Mother had breast cancer. Family history of lung cancer, GI tract cancer, prostate cancer, dementia,Parkinson's disease. MEDICATIONS Calcium 600+D 1 tab daily. Hydrochlorothiazide 25 mg daily. Ibuprofen 800 mg 3 times a day as needed. Lisinopril 10 mg daily. Multivitamin daily. Pantoprazole 20 mg daily. ALLERGIES FLU VACCINE. GENTAMICIN. NEOSPORIN. TOBRAMYCIN. SYSTEMS REVIEW An 11 point review of systems was positive for musculoskeletal on her right arm. It is aching at times. She does not recall any falls. The pain is mostly in the lateral deltoid area, hard to extend, especially if she is holding something. NEURO: When she sleeps on her right arm, her arm will go to sleep, and her right ulnar area went to sleep on a long drive. She occasionally has right sciatic notch tenderness. Remainder of 11 point review of systems was negative. VITAL SIGNS Blood pressure 106/76, pulse 80, respirations 20, temp 35.7, weight 97.8 kg, height 158 cm. PHYSICAL EXAMINATION HEENT: Tympanic membrane on the right is obscured by cerumen. Left appears normal. Oropharynx is nonerythematous. Pupils equal and reactive to light. NECK: Supple without lymphadenopathy, thyromegaly, or bruits. CHEST: 1 pop at the left base, otherwise clear. CARDIOVASCULAR: Regular rate and rhythm. No murmur. BREASTS: Without dominant masses, discharge, supraclavicular, or axillary nodes. ABDOMEN: Soft, plus bowel sounds, nontender. : Deferred. EXTREMITIES: Without edema. As mentioned, she has tenderness at the lateral side of the deltoid. NEURO: DTRs are 2+/4. Strengths are 5/5. IMPRESSION/REPORT/PLAN 1. Hypertension. 2. Adult well examination. 3. Right arm pain. PLAN: We are going to get an x-ray of the right humerus also get basic and refilled her meds. She should return as needed and annually. ADMINISTRATIVE BILLING Total time spent was 31 minutes, with 25 minutes in counseling and coordination of care. Tiki Davidson M.D./pos Electronically Signed By: TIKI DAVIDSON MD On: 12/10/2014 09:44 PM Source: [facility] MHSDOLBEYNONRADSYS Document Id: [id number] documented in this encounter Nursing Notes Tiki Davidson M.D. - 12/04/2014 10:51 AM CST Ambulatory Patient Education The following Patient Education Materials have been given to the patient: Patient Education Materials: ED/Trauma Controlling High Blood Pressure ED/Trauma Controlling High Blood Pressure High blood pressure (hypertension) is called the silent killer. This is because many people who haveit dont know it. Normal blood pressure is less than 120/80. Know your blood pressure and remember tocheck it regularly. Doing so can save your life. Here are some things you can do to help control your blood pressure. Choose heart-healthy foods ?? Select low-salt, low-fat foods. ?? Limit canned, dried, cured, packaged, and fast foods. These can contain a lot of salt. ?? Eat 8-10 servings of fruits and vegetables every day. ?? Choose lean meats, fish, or chicken. ?? Eat whole-grain pasta, brown rice, and beans. ?? Eat 2-3 servings of low-fat or fat-free dairy products ?? Ask your doctor about the DASH eating plan. This plan helps reduce blood pressure. Maintain a healthy weight ?? Ask your healthcare provider how many calories to eat a day. Then stick to that number. ?? Ask your healthcare provider what weight range is healthiest for you. If you are overweight, weight loss of only 10 lbs can help lower blood pressure. ?? Limit snacks and sweets. ?? Get regular exercise. Get up and get active ?? Choose activities you enjoy. Find ones you can do with friends or family. ?? Park farther away from building entrances. ?? Use stairs instead of the elevator. ?? When you can, walk or bike instead of driving. ?? Bogue leaves, garden, or do household repairs. ?? Be active for at least 30 minutes a day, most days of the week. Manage stress ?? Make time to relax and enjoy life. Find time to laugh. ?? Visit with family and friends, and keep up with hobbies. Limit alcohol and quit smoking ?? Men: Have no more than 2 drinks per day. ?? Women: Have no more than 1 drink per day. ?? Talk with your healthcare provider about quitting smoking. Smoking increases your risk for heart disease and stroke. Ask about local or community programs that can help. Medications If lifestyle changes arent enough, your healthcare provider may prescribe high blood pressure medicine. Take all medications as prescribed. ?? [id number] [facility], [address] [place] [address]. All rights reserved. This information is not intended as a substitute for professional medical care. Always follow your healthcare professional's instructions. This document has images extracted. Please consider using [employer] for all your patient education needs. Source: [facility] POWERCHART Document Id: [id number] TRY OFFAL WORKER documented in this encounter Miscellaneous Notes Miscellaneous - Kaia Huber - 11/14/2015 1:01 PM CST Health Maintenance Reminder 14 November 2015 CHRIS ROCKWELL [id number] [facility] [id number] Dear CHRIS ROCKWELL, IMPORTANT HEALTH INFORMATION We care about your long-term health and are committed to ensuring that the care we offer you is of the highest value and convenience. Our records show you are due for: ___x___ Colorectal Cancer Screening Consult ?? Colorectal cancer is the second leading cause of cancer in the [place], and it is preventable. It can develop without any symptoms, so routine screening is the best approach. Please call [phone] to schedule an appointment with your provider to discuss the above options. If you have received the services listed above elsewhere please call [phone] and ask for release of information person; so we can send you a release of information to obtain those records to be part of your medical record here at [facility]. We recommend that you contact your insurance to make sure you can schedule these services at the lowest cost to you. For example, some insurance plans may have limits around when you can schedule particular services within a calendar year. The following questions may be helpful when speaking with yourinsurance: ?? I need to have one of the services listed above. When is this service covered? ?? Will I have a co-pay for that service? ?? Do I need to notify you prior to that service appointment? We encourage you to log into or set up your Patient Online Services account at [email or web address]>, where you can communicate in a convenient way with your care team, set up appointments, receive lab results and more. If you have any questions about the services that are listed above or you are no longer receiving care from [facility] please contact us at [phone]; we are happy to partner with you in your health care. Sincerely, Dr. Tiki Santiago M.D. Your Primary Care Team [facility] in [place] Electronic Signature Electronically Signed By: Kaia Huber Chrome Worker On: 14 November 2015 This document has images extracted. Source: [facility] POWERCHART Document Id: [id number] Miscellaneous - Tiki Davidson M.D. - 12/04/2014 10:51 AM CST Ambulatory Patient Summary [place] [facility] [address] [place], [place] [id number] Visit Information Name: CHRIS ROCKWELL [facility] Number: [id number] Current Date: 12/04/2014 10:51:55 Physicians Attending Provider: TIKI DAVIDSON MD Primary [...] Tablet(s), Oral, once a day Routed to [address] [address] ibuprofen (ibuprofen 800 mg oral tablet) 1 Tablet(s), Oral, three times a day as needed for Pain Take with food lisinopril (lisinopril 10 mg oral tablet) 1 Tablet(s), Oral, once a day Routed to [address] [address] multivitamin (multivitamin) 1 tab, Oral, once a day pantoprazole (pantoprazole 20 mg oral enteric coated tablet) 1 Tablet(s), Oral, once a day Routed [address] [address] Stop Taking the Following Medications: Medication list as of 12-04-14 10:51 Attention: If you have any medications at [...] Electronically Signed By: TIKI DAVIDSON MD Signed On:04-DEC-2014 10:51:40 Your Allergies & Intolerances Substance Reaction Symptoms Category Comments gentamicin Drug tobramycin Drug Neosporin Drug flu vaccines Drug Your Problem List Problem Status Onset [...] local Clinic if further appointment detail needed. Controlling High Blood Pressure High blood pressure (hypertension) is called the silent killer. This is because many people who haveit dont know it. Normal blood pressure is less than 120/80. Know your blood pressure and remember tocheck it regularly. Doing so can save your life. Here are some things you can do to help control your blood pressure. Choose heart-healthy foods ?? Select low-salt, low-fat foods. ?? Limit canned, dried, cured, packaged, and fast foods. These can contain a lot of salt. ?? Eat 8--10 servings of fruits and vegetables every day. ?? Choose lean meats, fish, or chicken. ?? Eat whole-grain pasta, brown rice, and beans. ?? Eat 2--3 servings of low-fat or fat-free dairy products ?? Ask your doctor about the DASH eating plan. This plan helps reduce blood pressure. Maintain a healthy weight ?? Ask your healthcare provider how many calories to eat a day. Then stick to that number. ?? Ask your healthcare provider what weight range is healthiest for you. If you are overweight, weight loss of only 10 lbs can help lower blood pressure. ?? Limit snacks and sweets. ?? Get regular exercise. Get up and get active ?? Choose activities you enjoy. Find ones you can do with friends or family. ?? Park farther away from building entrances. ?? Use stairs instead of the elevator. ?? When you can, walk or bike instead of driving. ?? Bogue leaves, garden, or do household repairs. ?? Be active for at least 30 minutes a day, most days of the week. Manage stress ?? Make time to relax and enjoy life. Find time to laugh. ?? Visit with family and friends, and keep up with hobbies. Limit alcohol and quit smoking ?? Men: Have no more than 2 drinks per day. ?? Women: Have no more than 1 drink per day. ?? Talk with your healthcare provider about quitting smoking. Smoking increases your risk for heart disease and stroke. Ask about local or community programs that can help. Medications If lifestyle changes arent enough, your healthcare provider may prescribe high blood pressure medicine. Take all medications as prescribed. ?? [id number] [facility], [address] [place] [address], [place] [address]. All rights reserved. This information is not intended as a substitute for professional medical care. Always follow your healthcare professional's instructions. Your Goals/Additional instructions: This document has images extracted. Please consider using [employer] for all your patient education needs. Source: [facility] POWERCHART Document Id: [id number] TRY OFFAL WORKER Miscellaneous - Tiki Davidson M.D. - 12/04/2014 10:51 AM CST Ambulatory Discharge Medication List [place] [facility] [address] [place] [id number] Visit Information Name: RAZA CHRIS [facility] Number: [id number] Visit Date: 12/04/2014 10:51:53 Attending Provider: TIKI DAVIDSON MD Primary Care Provider: TIKI DAVIDSON MD SRIMARY JANE CHRIS has been given the following list [...] Tablet(s), Oral, once a day Routed to [facility] [address] [address] ibuprofen (ibuprofen 800 mg oral tablet) 1 Tablet(s), Oral, three times a day as needed for Pain Take with food lisinopril (lisinopril 10 mg oral tablet) 1 Tablet(s), Oral, once a day Routed to [facility] [address] [address] multivitamin (multivitamin) 1 tab, Oral, once a day pantoprazole (pantoprazole 20 mg oral enteric coated tablet) 1 Tablet(s), Oral, [facility] [address] [address] Stop Taking the Following Medications: Medication list as of 12-04-14 10:51 Attention: If you have any medications at [...] Electronically Signed By: TIKI DAVIDSON MD Signed On:04-DEC-2014 10:51:40 Additional Information: Yes - . Source: [facility] POWERCHART Document Id: [id number] TRY OFFAL WORKER Miscellaneous - Katalina Ramos, L.P.N. - 12/04/2014 10:02 AM CST Adult Desk Manager Intake/History Adult Desk Manager Intake/History Entered On: 12/04/2014 10:05 POULTRY OFFAL WORKER Performed On: 12/04/2014 10:02 POULTRY OFFAL WORKER by KATALINA RAMOS LPN Intake Chief Complaint : Annual wellness exam. 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 Temperature Core : 35.7 DegC(Converted to: 96.3 DegF) (LOW) Peripheral Pulse Rate : 80 /min Respiratory Rate : 20 /min Heart Rhythm : Regular Systolic Blood Pressure : 106 mmHg Diastolic Blood Pressure : 76 mmHg NIBP Mean : 86 mmHg BP Location : Left upper extremity Blood Pressure Cuff Size : Large Height : 158 cm(Converted to: 5 ft 2 inch(es), 62 inch(es)) Actual Weight : 97.8 kg(Converted to: 215 lb 10 oz) Weight Source : Standing scale Dosing Weight Clinic : 97.8 kg Clinic BSA : 2.07 Body Mass Index : 39.18 kg/m2 KATALINA RAMOS LPN - 12/04/2014 10:02 POULTRY OFFAL WORKER General Info Information Given By : Patient Languages : Kiswahili Is Patient Female and 13-50 no hysterectomy : KATALINA De La Rosa LPN - 12/04/2014 10:02 POULTRY OFFAL WORKER Subjective Pain Symptoms : KATALINA De La Rosa LPN - 12/04/2014 10:02 POULTRY OFFAL WORKER Dependent Habits Tobacco Use/Currently Using : No Exposure to Tobacco Smoke : Other: former smoker Smoking Status : Former smoker KATALINA RAMOS LPN - 12/04/2014 10:02 POULTRY OFFAL WORKER Tobacco Use Grid Last Use : 2006 KATALINA RAMOS LPN - 12/04/2014 10:02 POULTRY OFFAL WORKER Caffeine Use Grid Caffeine Use : Current Type : Chocolate, Coffee Frequency : Daily Amount : 2-3 KATALINA RAMOS LPN - 12/04/2014 10:02 POULTRY OFFAL WORKER Recreational Drug Use Grid Drug Use : None KATALINA RAMOS LPN - 12/04/2014 10:02 POULTRY OFFAL WORKER ID Screen Travel Within Last 21 Days : No Contact with someone with Ebola : KATALINA De La Rosa LPN - 12/04/2014 10:02 POULTRY OFFAL WORKER Source: [facility] POWERCHART Document Id: [id number] POULTRY OFFAL WORKER!43 TRY OFFAL WORKER documented in this encounter Plan of Treatment Not on filedocumented as of this encounter Procedures Procedure Name Priority Date/Time Associated Diagnosis Comme nts BASIC METABOLIC Routine 12/04/2014 10:55 AM Resul ts for this PANEL, S/P POULTRY OFFAL WORKER procedure are i n the results section. documented in this encounter Results (ABNORMAL) BMP (Basic Metabolic Panel) (12/04/2014 10:55 AM POULTRY OFFAL WORKER) Analysis Performed At Patho logist Time Signature Sodium, S 142 135 - 145 POWERCHART [facility] Potassium, S 3.6 3.5 - 5.1 POWERCHART [facility] Chloride, S 103 98 - 107 POWERCHART [facility] CO2 Total 30 (H) 22 - 29 POWERCHART [facility] BUN (Blood Urea 20 6 - 24 MGDL POWERCHART Nitrogen), S Creatinine 0.9 0.6 - 1.1 POWERCHART MGDL Calcium, Total, 9.6 8.8 - 10.3 POWERCHART S MGDL Anion Gap 9 7 - 15 [facility] POWERCHART HXeGFR (MDRD) >60.0 >=60.0 POWERCHART MLMINSA Comment: Results are in mL/min/1.73m squared CKD Stage I: GFR > 90 CKD Stage II: GFR 60 to 89 CKD Stage III: GFR 30 to 59 CKD Stage IV: GFR 15 to 29 CKD Stage V: GFR < 15 or Dialysis eGFR Black/ >60 >=60 MLMINSA POWERCHART Glucose 93 70 - 140 MGDL POWERCHART Specimen (Source) Anatomical Collection Method Collection Time Re ceived Time Location / / Volume Laterality Blood 12/04/2014 10:55 AM POULTRY OFFAL WORKER Tiki Davidson M.D. LAB BLOOD ADD-ON Performing Organization Address City/State/ZIP Code Phon e Number POWERCHART documented in this encounter Visit Diagnoses Not on filedocumented in this encounter
--- OUTSIDE RECORDS SUMMARY | 2022-08-31 10:09 | XMS_ITS | Encounter Summary ---
:1945 Author Organization [facility] Address [address] [place] [address] Care Team Providers Name Role Phone Unavailable Primary Care Provider Unavailable Encounter Details Date Type Department Care Team Description 07/24/2014 Hospital Encounter [facility] Tiki Paige M.D. 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 - 12/04/2014 1:54 PM CST xray result Document Contains Addenda Addendum by TIKI DAVIDSON MD on 05 December 2014 16:52:47 OSTEOLOGY TEACHER From: TIKI DAVIDSON MD To: ANNIE Albrecht Nurse; Sent: 12/05/2014 16:52:47 OSTEOLOGY TEACHER Subject: RE: xray result She wasn't there first time. called back and discussed and set up another x-ray Addendum by AUGUST VALVERDE RN on 04 December 2014 14:27:41 OSTEOLOGY TEACHER From: AUGUST VALVERDE RN (ANNIE Albrecht Nurse) To: TIKI DAVIDSON MD; Sent: 12/04/2014 14:27:41 OSTEOLOGY TEACHER Subject: FW: xray result results from today From: CHAPO GRAFF LPN To: ANNIE Albrecht Nurse; Sent: 12/04/2014 13:54:35 OSTEOLOGY TEACHER Subject: xray result Caller is: (x ) Patient ( ) Mother ( ) Father ( ) Spouse ( ) Daughter ( ) Son ( ) Pharmacy ( ) Other: Physician: Dr. Davidson Patient MRN #: Reason for Call: Message: Patient requesting a call with xray results. thanks! Advice/Action: Source used: ( ) Verbalizes understanding of instructions ( ) Instructed to call back if symptoms worsen or do not resolve ( ) Refused to see provider ( ) Appointment Scheduled ( ) OK to leave message on voice mail ( ) Patient told to expect return call: ( ) today ( ) tomorrow ( ) next work day ( ) Patient's email ( ) Patient told physician out of office, will call upon return call on ( ) ( ) Patient told physician out of office, routed to other physician ( ) Other ( ) Call back telephone number ( ) Call back cell phone number ( ) Source: [facility] POWERCHART Document Id: [id number] Electronically signed by Conversion, [facility] Courier Driver [id number] at 03/03/2017 1:21 AM CDT documented in this encounter Plan of Treatment Not on filedocumented as of this encounter Visit Diagnoses Not on filedocumented in this encounter
--- OUTSIDE RECORDS SUMMARY | 2022-08-31 10:09 | XMS_ITS | Encounter Summary ---
:1945 Author Organization [facility] Address [address] [place] [address] Care Team Providers Name Role Phone Chastity Davidson M.D. 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 PCP - General 03/19/17 01/11/20 documented as of this encounter
--- OUTSIDE RECORDS SUMMARY | 2022-08-31 10:09 | XMS_ITS | Encounter Summary ---
:1945 Author Organization [facility] Address [address] [place] [address] Care Team Providers Name Role Phone Unavailable Primary Care Provider Unavailable Encounter Details Date Type Department Care Team Description 07/04/2016 Hospital Encounter HX [facility] Velasquez Brink M.D. 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 - 07/09/2016 2:55 PM CDT Normal Results Letter July 09, 2016 CHRIS PERSON [id number] [facility] [id number] Dear CHRIS PERSON, I am pleased to report that your results from the following diagnostic test(s) are normal. Please follow up with us as we discussed during your visit or sooner if you have any concerns. If you have questions or concerns, please do not hesitate to call our office. Result Name Current Result Previous Result Normal Range Sodium Lvl (mmol/L) 142 07/04/2016 141 01/02/2016 135 - 145 Potassium Lvl (mmol/L) 3.8 07/04/2016 4.1 01/02/2016 3.5 - 5.1 Chloride (mmol/L) 101 07/04/2016 99 01/02/2016 98 - 107 CO2 (mmol/L) 28 07/04/2016 28 01/02/2016 22 - 29 AGAP (mmol/L) 13 07/04/2016 14 01/02/2016 7 - 15 Glucose Lvl (mg/dL) 72 07/04/2016 70 - 140 Creatinine (mg/dL) 0.9 07/04/2016 0.9 01/02/2016 0.6 - 1.1 EGFR (MDRD) (mL/min/SA) >60.0 07/04/2016 >60.0 01/02/2016 >=60.0 - EGFR (MDRD) (mL/min/SA) >60 07/04/2016 >60 01/02/2016 >=60 - BUN (mg/dL) 21 07/04/2016 21 01/02/2016 6 - 24 Calcium Lvl (mg/dL) 9.8 07/04/2016 9.7 01/02/2016 8.8 - 10.3 Sincerely, TIKI BRINK [address] [place] [id number] Electronic Signature Electronically Signed By: TIKI BRINK MD On: July 09, 2016 This document has images extracted. Source: [facility] POWERCHART Document Id: [id number] Electronically signed by Conversion, [facility] Business Info Consultant [id number] at 03/01/2017 4:22 AM CDT documented in this encounter Plan of Treatment Not on filedocumented as of this encounter Procedures Procedure Name Priority Date/Time Associated Diagnosis Comme nts BASIC METABOLIC Routine 07/04/2016 9:16 AM Result s for this PANEL, S/P CDT procedure are i n the results section. documented in this encounter Results BMP (Basic Metabolic Panel) (07/04/2016 9:16 AM CDT) P athologist Signature Sodium, S 142 135 - 145 POWERCHART MMOLL Potassium, S 3.8 3.5 - 5.1 POWERCHART MMOLL Chloride, S 101 98 - 107 POWERCHART MMOLL CO2 Total 28 22 - 29 POWERCHART MMOLL Glucose 72 70 - 140 POWERCHART MGDL BUN (Blood Urea 21 6 - 24 MGDL POWERCHART Nitrogen), S Creatinine 0.9 0.6 - 1.1 POWERCHART MGDL Calcium, Total, 9.8 8.8 - 10.3 POWERCHART S MGDL Anion Gap 13 7 - 15 MMOLL POWERCHART HXeGFR (MDRD) [...] Time Location / / Volume Laterality Blood 07/04/2016 9:16 AM CDT Tiki Brink M.D. LAB BLOOD ADD-ON Performing Organization Address City/State/ZIP Code Phon e Number POWERCHART documented in this encounter Visit Diagnoses Not on filedocumented in this encounter
--- OUTSIDE RECORDS SUMMARY | 2022-08-31 10:09 | XMS_ITS | Encounter Summary ---
:1945 Author Organization [facility] Address [address] [place] [address] Care Team Providers Name Role Phone Chastity Davidson M.D. 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 PCP - General 03/19/17 01/11/20 documented as of this encounter
--- OUTSIDE RECORDS SUMMARY | 2022-08-31 10:09 | XMS_ITS | Encounter Summary ---
:1945 Author Organization [facility] Address [address] [place] [address] Care Team Providers Name Role Phone Unavailable Primary Care Provider Unavailable Encounter Details Date Type Department Care Team Description 12/04/2014 Hospital Encounter [facility] Karlee Bocanegra M.D. 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 Last Filed Vital Signs Vital Sign Reading Time Taken Comments Blood Pressure - - Pulse - - Temperature - - Respiratory Rate - - Oxygen Saturation - - Inhaled Oxygen Concentration - - Weight - - Height 158 cm (5' 2.21) 12/04/2014 11:20 AM MANAGER FUND Body Mass Index - - documented in [...] Miscellaneous - Conversion, Historical Provider Ser - 12/04/2014 11:59 PM MANAGER FUND Coding Summary-Paper Based CODING DATE: 12/11/2014 FINAL MA [facility] STATUS: * Discharged to Home or Self Care PAYOR: Medicare Advantage ADMIT DX: REASON FOR VISIT DX: FINAL DX: PRINCIPAL: 401.1 Benign Essential Hypertension SECONDARY: 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 However, the narrative phrase printed from the coding software may appear abbreviated, or result in slightly different terminology. Coded By: SUSANA ORTIZ Date Saved: 12/11/2014 02:25 pm Source: [employer] Document Id: [id number] Tiki Abrams M.D. - 12/04/2014 5:55 PM CST From: TIKI BRINK MD To: TRISHA GUERIN; Sent: 12/04/2014 17:55:28 MANAGER FUND gave results of x-ray and need to set up x-ray of rt. shoulder in 3 days(thursday) Source: [employer] Document Id: [id number] Tiki Abrams M.D. - 12/04/2014 5:46 PM CST Normal Results Letter 04 December 2014 CHRIS ROCKWELL [id number] [facility] [id number] Dear CHRIS ROCKWELL, I am pleased to report that your results from the following diagnostic test(s) are normal. Please follow up with us as we discussed during your visit or sooner if you have any concerns. If you have questions or concerns, please do not hesitate to call our office. Result Name Current Result Previous Result Normal Range Sodium Lvl (mmol/L) 142 12/04/2014 141 12/15/2013 135 - 145 Potassium Lvl (mmol/L) 3.6 12/04/2014 3.7 07/24/2014 3.5 - 5.1 Chloride (mmol/L) 103 12/04/2014 105 12/15/2013 98 - 107 AGAP (mmol/L) 9 12/04/2014 10 12/15/2013 7 - 15 Glucose Lvl (mg/dL) 93 12/04/2014 95 12/15/2013 70 - 140 Creatinine (mg/dL) 0.9 12/04/2014 0.8 12/15/2013 0.6 - 1.1 EGFR (MDRD) (mL/min/SA) >60.0 12/04/2014 >60.0 12/15/2013 >=60.0 - EGFR (MDRD) (mL/min/SA) >60 12/04/2014 >60 12/15/2013 >=60 - BUN (mg/dL) 20 12/04/2014 22 12/15/2013 6 - 24 Calcium Lvl (mg/dL) 9.6 12/04/2014 9.8 12/15/2013 8.8 - 10.3 XR Humerus Right 2 views 12/04/2014 Sincerely, TIKI BRINK [address] [place] [address] [phone] Electronic Signature Electronically Signed By: TIKI BRINK MD On: 04 December 2014 This document has images extracted. Source: [facility] POWERCHART Document Id: [id number] documented in this encounter Plan of Treatment Not on filedocumented as of this encounter Procedures Procedure Name Priority Date/Time Associated Diagnosis Comme nts DX HUMERUS RIGHT 2 Routine 12/04/2014 10:43 AM Re sults for this VIEWS MANAGER FUND procedure are i n the results section. documented in this encounter Results DX Humerus Right 2 Views (12/04/2014 10:43 AM MANAGER FUND) Anatomical Region Laterality Modality Upper Extremity, Humerus Right Radiographic Im aging Specimen (Source) Anatomical Collection Method Collection Time Re ceived Time Location / / Volume Laterality 12/04/2014 10:43 AM MANAGER FUND Addenda Addendum by Provider, Ankush Monson 12/04/2014 10:43 AM MANAGER FUND RAD^^^MA XR Humerus Right 2 views 12/04/2014 10:43:50 Impressions 12/04/2014 11:42 AM MANAGER FUND Sclerotic lesion right humeral head, probably benign. Dedicated shoulder radiographs would be helpful to better define Narrative 12/04/2014 11:42 AM MANAGER FUND EXAM: XR Humerus Right 2 views INDICATION: right lateral arm pain near deltoid COMPARISON: None. FINDINGS: There is a sclerotic appearing lesion in the humeral head of uncertain significance. Some cystic c hanges most likely reflect benign etiology. No evidence for fracture or focal bone d estruction Procedure Note Ag Tinsley D.O. / Vera España M.D. - 02/11/2017 EXAM: XR Humerus Right 2 views INDICATION: right lateral arm pain near deltoid COMPARISON: None. FINDINGS: There is a sclerotic appearing lesion in the humeral head of uncertain significance. Some cystic c hanges most likely reflect benign etiology. No evidence for fracture or focal bone d estruction IMPRESSION: Sclerotic lesion right humer al head, probably benign. Dedicated shoulder radiographs would be helpful to better define Mira Linares R.T.(R)(CT), R.T.(R) IMG DIAGNOSTIC IMAG ING PROCEDURES documented in this encounter Visit Diagnoses Not on filedocumented in this encounter
--- OUTSIDE RECORDS SUMMARY | 2022-08-31 10:09 | XMS_ITS | Encounter Summary ---
:1945 Author Organization [facility] Address [address] [place] [address] Care Team Providers Name Role Phone Unavailable Primary Care Provider Unavailable Encounter Details Date Type Department Care Team Description 12/26/2013 Hospital Encounter HX [facility] Clement Lunsford M.D. 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 - 12/26/2013 1:01 PM CDT [id number] CHIEF COMPLAINT/REASON FOR VISIT Followup of simple hyperplasia. HISTORY OF PRESENT ILLNESS Patient is a 68-year-old female, who has had postmenopausal bleeding. She previously had an endometrial biopsy that showed simple endometrial hyperplasia without atypia. She was then placed on Provera and has been on that for 6 months. She denies any significant symptoms associated with it. She deniesany vaginal bleeding since March 2013. She has noted some decrease in her hot flashes and her night sweats. PHYSICAL EXAMINATION VITAL SIGNS: Pulse 72, respiratory rate 16, blood pressure 124/ , weight is 94.7 kg. GENERAL: She is a well-developed, well-nourished female in no acute distress. PROCEDURE: The risks, benefits, indications and alternatives of a repeat endometrial biopsy discussed in detail. Informed consent was obtained. She is placed in supine position. A speculum was placed into her vagina. The cervix is swabbed with Betadine. The endometrial biopsy Pipelle was inserted through the cervix into the uterus. An adequate amount of tissue was obtained with 1 pass of the endometrial biopsy Pipelle. The speculum was then removed from the vagina. IMPRESSION/REPORT/PLAN Simple endometrial hyperplasia without atypia. PLAN: The patient will be informed of the results of the biopsy from today. Should it report an absence of hyperplasia, I recommended she discontinue her Provera. If there continues to be any hyperplasia or if the hyperplasia has worsened, it is noted that she may need continued use of the Provera or even other measures. All of her questions were answered today to the best of my ability. Abdirahman Jain M.D./pos Electronically Signed By: ABDIRAHMAN JAIN MD On: 01/16/2014 03:58 PM Source: [facility] MHSDOLBEYNONRADSYS Document Id: [id number] documented in this encounter Miscellaneous Notes Miscellaneous - Abdirahman Jain M.D. - 12/28/2013 9:39 AM CDT Results Notification Document Contains Addenda Addendum by ANASTASIIA MENDOZA LPN on 29 December 2013 11:31:41 CDT Pt informed of the below results and understands. From: ABDIRAHMAN JAIN MD To: ANASTASIIA MENDOZA LPN; Sent: 12/28/2013 09:39:07 CDT Show up: 12/28/2013 09:39:00 CDT Subject: Results Notification Actions: Notify patient of results Please let Chris know her biopsy came back without any hyperplasia. She can discontinue her provera. She should call/return to clinic if she has any further vaginal bleeding. Results: Date Result Type Result Name 12/28/2013 9:22 Document - DOC Pathology-Surg Path Source: [facility] POWERCHART Document Id: [id number] Electronically signed by [facility] Appeals Reviewer Veteran [id number] at 03/03/2017 10:19 AM CDT Miscellaneous - Abdirahman Jain M.D. - 12/26/2013 1:45 PM CDT Ambulatory Patient Summary [address] [id number] Visit Information Name: CHRIS ROCKWELL [facility] Number: [id number] Current Date: 12/26/2013 13:45:41 Physicians Attending Provider: ABDIRAHMAN JAIN MD Primary Care Provider: TIKI BRINK MD YOJNAASCOOBYCHRIS has been given the following list of [...] tablet) 1 Tablet(s), Oral, once a day medroxyPROGESTERone (Provera 5 mg oral tablet) 1 Tablet(s), Oral, once a day multivitamin (multivitamin) 1 tab, Oral, once a day pantoprazole (pantoprazole 20 mg oral enteric coated tablet) 1 Tablet(s), Oral, once a day Stop Taking the Following Medications: Medication list as of 12-26-13 13:45 Attention: If you have any medications at [...] Upcoming Appointments Date Time Location Reason Provider No Appointments found Attention: Contact your local Clinic if further appointment detail needed. Your Goals/Additional instructions: Source: [facility] POWERCHART Document Id: [id number] Miscellaneous - Abdirahman Jain M.D. - 12/26/2013 1:45 PM CDT Ambulatory Discharge Medication List [address] [place], [place] [phone] Visit Information Name: CHRIS ROCKWELL [facility] Number: [id number] Visit Date: 12/26/2013 13:45:39 Attending Provider: ABDIRAHMAN JAIN MD Primary Care Provider: TIKI BRINK MD CHRIS [...] tablet) 1 Tablet(s), Oral, once a day medroxyPROGESTERone (Provera 5 mg oral tablet) 1 Tablet(s), Oral, once a day multivitamin (multivitamin) 1 tab, Oral, once a day pantoprazole (pantoprazole 20 mg oral enteric coated tablet) 1 Tablet(s), Oral, once a day Stop Taking the Following Medications: Medication list as of 12-26-13 13:45 Attention: If you have any medications at home that are not on this list, DO NOT take them until youcontact your provider for clarification. Give a copy of your medication list to your primary care provider. Update your medication list any time medications or doses are changed and carry your medication list at all times in case of emergency. Additional Information: Source: [facility] POWERCHART Document Id: [id number] Miscellaneous - Anastasiia Mendoza L.P.N. 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 Peripheral Pulse Rate : 72 /min Respiratory Rate : 16 /min Heart Rhythm : Regular Systolic Blood Pressure : 124 mmHg Diastolic Blood Pressure : 88 mmHg NIBP Mean : 100 mmHg BP Location : Right upper extremity Blood Pressure Cuff Size : Large Actual Weight : 94.7 kg(Converted to: 208 lb 12 oz) Weight Source : Standing scale Dosing Weight Clinic : 94.7 kg ANASTASIIA MENDOZA LPN - 12/26/2013 13:17 CDT General Info Information Given By : Patient Languages : Upper Sorbian ANASTASIIA MENDOZA LPN - 12/26/2013 13:17 CDT Subjective Pain Symptoms : No ANASTASIIA MENDOZA LPN - 12/26/2013 13:17 CDT Dependent Habits Tobacco Use/Currently Using : No Exposure to Tobacco Smoke : Other: former smoker Smoking Status : Former smoker ANASTASIIA MENDOZA LPN - 12/26/2013 13:17 CDT Tobacco Use Grid Last Use : 2006 ANASTASIIA MENDOZA LPN - 12/26/2013 13:17 CDT Alcohol Use : Yes ANASTASIIA MENDOZA LPN - 12/26/2013 13:17 CDT Caffeine Use Grid Caffeine Use : Current Type : Chocolate, Coffee Frequency : Daily Amount : 2-3 ANASTASIIA MENDOZA LPN - 12/26/2013 13:17 CDT Recreational Drug Use Grid Drug Use : None ANASTASIIA MENDOZA LPN - 12/26/2013 13:17 CDT [facility] Document Id: [id number] CDT!36 documented in this encounter Plan of Treatment Not on filedocumented as of this encounter Procedures Procedure Name Priority Date/Time Associated Diagnosis Comme nts SURGICAL PATHOLOGY Routine 12/26/2013 11:30 AM Re sults for this CDT procedure are i n the results section. documented in this encounter Results Pathology Surgical Pathology (12/26/2013 11:30 AM CDT) Specimen (Source) Anatomical Collection Method Collection Time Re ceived Time Location / / Volume Laterality 12/26/2013 11:30 AM CDT Narrative [facility] - 12/28/2013 9:22 AM CDT [facility] [place] [address] [address] Patient Name: CHRIS ROCKWELL Patient ID #: [id number] Collected: 12/26/2013 Address: [facility]/State/Zip: [address] [place], [place] ??[phone] Received: Reported: 12/27/2013 12/28/2013 Soc. Sec. #: [id number] ?? DO B/Age/Sex 1945 (Age: 68) ??F Physician(s): MIKEL JAIN MD Copy To: ? [facility] ??[id number] [facility], ??[place] ??[address] SURGICAL PATHOLOGY REPORT FINAL DIAGNOSIS: ENDOMETRIAL BIOPSY: --- POLYPOID FRAGMENT OF INACTIVE ENDOME TRIAL TISSUE WITH CYSTIC CHANGE. pap/12/28/2013 ELAINA GERBER M.D. Report electronically released. Interpretation by ELAINA GERBER M.D. SPECIMEN(S) RECEIVED: ENDOMETRIAL BIOPSY GROSS DESCRIPTION: Submitted as endometrial biopsy are corbett white biopsies aggregating to 0.5 cm. ESB, one cassette. ([id number]) EAE/KEANU/12/27/2013 MICROSCOPIC DESCRIPTION: Reviewed by Elaina Gerber M.D.; Path ologist [facility]/12/28/2013 Abdirahman Jain M.D. LAB SURG PATH ORDERABLES Performing Organization Address City/[facility]/ZIP Code Phon e Number [facility] documented in this encounter Visit Diagnoses Not on filedocumented in this encounter
--- OUTSIDE RECORDS SUMMARY | 2022-08-31 10:10 | XMS_ITS | Encounter Summary ---
:1945 Author Organization [facility] Address [address] [place] [address] Care Team Providers Name Role Phone Unavailable Primary Care Provider Unavailable Encounter Details Date Type Department Care Team Description 12/18/2010 Hospital Encounter [facility]X [facility] Chastity Paige M.D. 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 - 12/18/2010 1:56 PM CDT FAMILY MEDICINE DATE OF SERVICE: 12/18/2010 REASON FOR VISIT She is a 65-year-old female for wellness physical and Pap. HISTORY OF PRESENT ILLNESS She had a couple questions. For one thing, she noticed last month or so that she has got kind of a redness that she is wondering about it being a butterfly redness such as you would see with lupus but she has also had some on her forehead. She had not had any pimples. PAST MEDICAL, FAMILY, AND SOCIAL HISTORY Medical: Hypertension, arthritis, 3 para 3, tonsillectomy and adenoidectomy, and closed fracture of her arm. She had a colonoscopy in 2005. Family: Parkinsons disease, lung cancer, prostate cancer, kidney disease, dementia, colon cancer, and breast cancer. Social: She does not smoke. She goes to [facility] 2-3 times a week and is exercising while she is there. MEDICATIONS Hydrochlorothiazide 25 mg daily; lisinopril 10 mg daily; calcium with vitamin D 1 tablet daily; ibuprofen 800 mg 3 times a day p.r.n. pain; multivitamin. ALLERGIES NEOSPORIN. TOBRAMYCIN. GENTAMICIN. FLU VACCINES. REVIEW OF SYSTEMS ENT: No ear, nose, throat problems. Chest: No shortness of breath or cough. Cardiovascular: No chest pain or palpitation. GI: She gets heartburn and takes Prilosec [id number] occasionally. : She occasionally has urgency and occasionally she complains about dryness in the vaginal vault. Musculoskeletal: She has some aches and pains associated with her age. Neurologic: No numbness, tingling, or seizures. Psychiatric: No depression or anxiety. Skin: As mentioned the rash on her face. Endocrine: No increased thirst, urination, heat or cold intolerance. EXAMINATION VITALS: Blood pressure 148/80, recheck was 140/80. We did give her a diary to keep track of that andif she is not getting lower we might have to increase her blood pressure medicines. She will contactmt on that. Pulse 76. Respirations 16. Temperature 36.4. Weight 99.2. Height 167.5. HEENT: Tympanic membranes: Kind of hairy and they have some wax in the hairs. Oropharynx: Nonerythematous. Pupils equal and reactive to light. Fundi are normal. NECK: Supple without lymphadenopathy, thyromegaly, or bruits. CHEST: Clear to auscultation bilaterally. CARDIOVASCULAR: Regular rate and rhythm, no murmur. BREASTS: Without dominant mass, discharge, supraclavicular axillary nodes. ABDOMEN: Soft, plus bowel sounds. Nontender. : There is no discharge. External genitalia appears normal. No lesions or erythema on the labia orurethra. Speculum examination shows minimal atrophy. Pap smear was taken. Bimanual examination: Withnormal anteverted uterus. They was some erythema in her groin area and I told her she should get an antifungal and possibly even blow dry the area after she showers. Told her she could use znud-hfv-gbqyfoj antifungal at first to see if that would improve it. EXTREMITIES: She has varicosities on the right. No edema. NEUROLOGIC: Deep tendon reflexes are 2 plus over 4. Strengths are 5/5. IMPRESSION/REPORT/PLAN 1. Routine general medical examination. 2. Screening for lipid disorders. 3. Rash. 4. Hypertension. We are going to check a BUN, creatinine, potassium, and lipids. We are also going to check for JAXON and rheumatoid arthritis. She is setting a mammogram and bone density up and she is getting a tetanustoday. She should return as needed and in a year. NATALIIAW:gonzalez Doc#: [id number] Electronically Signed By: CHATSITY DAVIDSON MD On: 01/05/2011 09:51 Source: [facility] ISJDICTAPHONESYS Document Id: [id number] documented in this encounter Miscellaneous Notes Miscellaneous - Chastity Davidson M.D. - 12/18/2010 3:01 PM CDT Ambulatory Patient Summary [address] [address] Visit Information Name: CHRIS ROCKWELL Current Date: 12/18/2010 15:01:16 Primary Care Provider: CHASTITY DAVIDSON MD Your Medications Here is a list of your medications. It is important to take your medications as directed. Use a pillbox or chart to help remind you to take your medications. Please let your doctor or nurse know if you have problems taking your medications. Medication/Strength Dose Route Frequency Indications/Special Instructions/Comments lisinopril (lisinopril 10 mg oral tablet) 10 mg Oral once a day hydrochlorothiazide (hydrochlorothiazide 25 mg oral tablet) 25 mg Oral once a day calcium-vitamin D (Calcium 600+D) 1 tab Oral once a day multivitamin (multivitamin) 1 tab Oral once a day ibuprofen (ibuprofen 800 mg oral tablet) 1 tab(s) Oral three times a day as needed for Pain Take with food Your Allergies & Intolerances Substance Reaction Symptoms [...] disease Active Family history of dementia Active Your Recommendations We want to make sure you get the tests, immunizations, and guidance you need to stay healthy. Here is a customized list of recommendations, based on information we have in your medical record. Your doctor may have additional recommendations for you, based on your personal medical history and risk factors. You can help us by calling us to make an appointment when you are due for your tests. Additional information regarding recommendations: Test/Treatment Last Done Next Due Additional Information Screening Bone Density Once Women greater than age 64 12/18/2010 02/16/2011 Checks for bone loss andosteoporosis. Screening Colonoscopy or Flex Sig or Barium Enema or Occult Blood X3 01/27/2006 01/25/2016 Checks for signs of cancer of the colon. Screening Mammogram every 1 year Women 40-75 12/18/2010 02/16/2011 X-rays of breast to check for breast cancer. Screening Pap Smear every 3 years Women 21-65 12/18/2010 02/16/2011 Checks for signs of cancer of the cervix. Lipid Panel every 5 years Age 20-75 12/18/2010 02/16/2011 Checks blood for good (HDL) and bad (LDL) cholesterol. Know your numbers, they are one indicator of your risk for heart attack and stroke. Vaccine: Flu every 1 year 12/18/2010 06/16/2011 Immunization to help prevent you from getting the flu strain expected to be a problem for that year's flu season. Vaccine: Pneumococcal Once 12/18/2010 Immunization to help prevent you from getting 23 kinds of pneumococcal bacteria that can lead to pneumonia, bacteremia and meningitis. Vaccine: Tetanus every 10 years 11/14/2009 12/14/2009 Immunization to help prevent you from getting the serious disease Tetanus (Lockjaw). Your Upcoming Appointments Date Time Location Reason Provider No Appointments found Your Goals/Additional instructions: Source: [facility] POWERCHART Document Id: [id number] Electronically signed by Conversion, [facility] Complaint Investigations Officer [id number] at 03/08/2017 5:11 PM CDT Luis Miguel - Chastity Davidson M.D. - 12/18/2010 3:01 PM CDT Ambulatory Depart Summary [address] [address] Visit Information Name: CHRIS ROCKWELL Current Date: 12/18/2010 15:01:15 Primary Care Provider: CHASTITY DAVIDSON MD CHRIS ROCKWELL has been given the following list of medications: Your Medications It is important to take your medications as directed. Use a pill box or chart to help remind you to take your medications. Please let your doctor or nurse know if you have problems taking your medications. Medication/Strength Dose Route Frequency Indications/Special Instructions/Comments lisinopril (lisinopril 10 mg oral tablet) 10 mg Oral once a day hydrochlorothiazide (hydrochlorothiazide 25 mg oral tablet) 25 mg Oral once a day calcium-vitamin D (Calcium 600+D) 1 tab Oral once a day multivitamin (multivitamin) 1 tab Oral once a day ibuprofen (ibuprofen 800 mg oral tablet) 1 tab(s) Oral three times a day as needed for Pain Take with food Additional Information: Yes - Current list of reconciled medications is provided and explained to the patient and/or family, guardian/caregiver. Source: [facility] POWERCHART Document Id: [id number] Electronically signed by Conversion, [facility] Complaint Investigations Officer [id number] at 03/08/2017 5:11 PM CDT Samantacellnatalia - Geovanna Fajardo L.P.N. - 12/18/2010 2:10 PM CDT Ambulatory Vitals Height Weight Ambulatory Vitals Height Weight Entered On: 12/18/2010 14:10 CDT Performed On: 12/18/2010 14:10 CDT by GEOVANNA FAJARDO LPN Vitals/Ht/Wt Systolic Blood Pressure: 140mmHg Diastolic Blood Pressure: 80mmHg NIBP Mean: 100mmHg BP Location: Left upper extremity TANA GEOVANNA ROGERS LPN - 12/18/2010 14:10 CDT Source: [facility] [employer] Document Id: [id number] CDT!6 Miscellaneous - Geovanna Fajardo L.P.NLa - 12/18/2010 2:05 PM CDT Adult Transcripter Intake/History Adult Transcripter Intake/History Entered On: 12/18/2010 14:07 CDT Performed On: 12/18/2010 14:05 CDT by GEOVANNA FAJARDO LPN Intake Chief Complaint: physical and pap Temperature Core: 36.4C(Converted to: 97.5DegF) (LOW) Peripheral Pulse Rate: 76/min Respiratory Rate: 16/min Systolic Blood Pressure: 148mmHg (HI) Diastolic Blood Pressure: 80mmHg NIBP Mean: 103mmHg BP Location: Left upper extremity Height: 157.50cm(Converted to: 5ft 2in, 62.01in) Actual Weight: 99.200kg(Converted to: 218lb 11oz) Dosing Weight Clinic: 99.20kg Clinic BSA: 2.08 Body Mass Index: 40kg/m2 GEOVANNA FAJARDO LPN - 12/18/2010 14:05 CDT General Info Information Given By: Patient Preferred Communication Mode: Verbal Languages: Icelandic GEOVANNA FAJARDO LPN - 12/18/2010 14:05 CDT Subjective Pain Symptoms: No GEOVANNA FAJARDO LPN - 12/18/2010 14:05 CDT Dependent Habits Tobacco Use/Currently Using: No GEOVANNA FAJARDO LPN - 12/18/2010 14:05 CDT Allergies Allergies (Active) flu vaccines Estimated Onset Date: <not entered> 07/14/2004 ; Reactions: Redness ; Created By:CHASTITY DAVIDSON MD; Reaction Status: Active ; Category: Drug ; Substance: flu vaccines ; Type: Allergy ; Updated By: CHASTITY DAVIDSON MD; Reviewed Date: 11/14/2009 9:37 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 gentamicin Estimated Onset Date: Unspecified ; Created By: GEOVANNA FAJARDO LPN; Reaction Status: Active ; Category: Drug ; Substance: gentamicin ; Type: Allergy ; Updated By: GEOVANNA FAJARDO LPN; Reviewed Date: 11/14/2009 9:15 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 Neosporin Estimated Onset Date: Unspecified ; Created By: GEOVANNA FAJARDO LPN; Reaction Status: Active ; Category: Drug ; Substance: Neosporin ; Type: Allergy ; Updated By: GEOVANNA FAJARDO LPN; Reviewed Date: 11/14/2009 9:15 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 tobramycin Estimated Onset Date: Unspecified ; Created By: GEOVANNA FAJARDO LPN; Reaction Status: Active ; Category: Drug ; Substance: tobramycin ; Type: Allergy ; Updated By: GEOVANNA FAJARDO LPN; Reviewed Date: 11/14/2009 9:15 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 documented in this encounter Results ZZPATHOLOGY NON-DRAFTER CIVIL (CAD) CYTOLOGY (12/18/2010 12:00 AM CDT) Specimen (Source) Anatomical Location Collection Method / Collectio n Time Received Time / Laterality Volume 12/18/2010 Narrative [facility] - 01/02/20 11 1:39 PM CDT [address] [place] [address] [id number] ? Patient: CHRIS ROCKWELL [address] [place], [place] ??[address] Soc. Sec. #: [id number] /Age/Sex: 1945 (Age: 65)F Collected: ? 12/18/2010 Received: ?12/20/2010 Reported: ?01/01/2011 Physician(s): NATALIIA DAVIDSON MD Copy To: [facility] ??[id number] [address] [place] [address], ??[place] ??[id number] CYTOPATHOLOGY DRAFTER CIVIL (CAD) REPORT FINAL CYTOLOGIC DIAGNOSIS Vaginal/Endocervical PAP Smear: NEGATIVE FOR INTRAEPITHELIAL LESION OR MALIGNANCY REACTIVE/REPARATIVE CHANGES. ENDOCERVICAL CELLS/COMPONENT PRESENT. SATISFACTORY SPECIMEN FOR EVALUATION. ??This specimen required a physician interpretation under CLIA 1987 ?? Electronically Signed Out By eae01/01/2011 CAMMY HAYES M.D. [facility]ASCP) The Pap test is a screening procedure an d, as such, is subject to both false positive and false negative results as evidenced by published data. ??It is not a diagnostic test and results should be inter preted in the context of the patient's h istory and other clinical findings. ??Obtaining per iodic Pap tests may help to minimize the consequences of any false negatives that may occur. SPECIMEN(S) RECEIVED: Vaginal/Endocervical PAP Smear CLINICAL HISTORY: Menstrual History: Postmenopausal Historical Provider LAB PATHOLOGY/CYTOLOGY ORDER SAMMY Performing Organization Address City/State/ZIP Code Phon e Number [facility] documented in this encounter Visit Diagnoses Not on filedocumented in this encounter
--- OUTSIDE RECORDS SUMMARY | 2022-08-31 10:10 | XMS_ITS | Encounter Summary ---
:1945 Author Organization [facility] Address [address] [place] [address] Care Team Providers Name Role Phone Unavailable Primary Care Provider Unavailable Encounter Details Date Type Department Care Team Description 11/10/2012 Hospital Encounter [facility] Rosalind Tyson M.D. 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 documented as of this encounter Plan of Treatment Not on filedocumented as of this encounter Procedures Procedure Name Priority Date/Time Associated Diagnosis Comme nts BI BREAST SCREENING Routine 11/10/2012 2:30 PM Re sults for this BILATERAL STAINED GLASS WINDOW DESIGNER procedure are i n the results section. documented in this encounter Results BI Breast Screening Bilateral (11/10/2012 2:30 PM STAINED GLASS WINDOW DESIGNER) Anatomical Region Laterality Modality Breast Bilateral Mammography Specimen (Source) Anatomical Collection Method Collection Time Re ceived Time Location / / Volume Laterality 11/10/2012 2:30 PM STAINED GLASS WINDOW DESIGNER Addenda Addendum by Provider, Ankush Monson 11/10/2012 2:30 PM STAINED GLASS WINDOW DESIGNER RAD^^^[facility] MAMMO SCREENING W CADD 11/10/2012 14:30:00 Impressions 11/10/2012 3:33 PM STAINED GLASS WINDOW DESIGNER 1. Benign findings only, ACR category 2. 2. I recommend routine yearly mammograms on this patient. BREAST MAMMOGRAPHY-GENERAL OBSERVATION: The false negative rate for mammography is 15 to 20%. It cannot be u sed, therefore, to replace regular physical examination. A normal o r noncontributory mammogram report should also not deter the aggress tin further workup of any suspected palpable masses. 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 The breast parenchyma remains predominan tly fatty and fibroglandular in appearance. Benign appearing calcific ations are again noted bilaterally. There are no suspicious katie upings of calcifications, dominant nodules, areas of skin thickeni ng or nipple retraction to suggest malignancy. Computer Aided Detection was utilized du ring the interpretation of this exam. Procedure Note Ag Tinsley D.O. / Vera España M.D. - 02/20/2017 EXAM: [place] Mammo Screening w/ CADD INDICATION: screening Bilateral craniocaudal and oblique views of the breasts were obtained digitally, and compared to the patient's prior studies of 01/23/2011 and prior. The breast parenchyma remains predominan tly fatty and fibroglandular in appearance. Benign appearing calcific ations are again noted bilaterally. There are no suspicious katie upings of calcifications, dominant nodules, areas of skin thickeni ng or nipple retraction to suggest malignancy. Computer Aided Detection was utilized du ring the interpretation of this exam. IMPRESSION: 1. Benign findings only, ACR category 2. 2. I recommend routine yearly mammograms on this patient. BREAST MAMMOGRAPHY-GENERAL OBSERVATION: The false negative rate for mammography is 15 to 20%. It cannot be u sed, therefore, to replace regular physical examination. A normal o r noncontributory mammogram report should also not deter the aggress tin further workup of any suspected palpable masses. Lora AguirreR)(CT), RLaTLa(R) DERECK THOMASON documented in this encounter Visit Diagnoses Not on filedocumented in this encounter
--- OUTSIDE RECORDS SUMMARY | 2022-08-31 10:10 | XMS_ITS | Encounter Summary ---
:1945 Author Organization [facility] Address [address] [place] [address] Care Team Providers Name Role Phone Unavailable Primary Care Provider Unavailable Encounter Details Date Type Department Care Team Description 11/14/2009 Hospital Encounter HX [facility] Chastity Paige M.D. 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 - 11/14/2009 9:06 AM CST CN DATE OF SERVICE: 11/14/2009 REASON FOR VISIT She is a 64-year-old female here for medication check. HISTORY OF PRESENT ILLNESS We noted on her last refill she had not been seen in more than a year and asked her to come in. However, she would like to have the least amount done at this appointment because she wants to have a more thorough appointment done in April when her Medicare kicks in. She says she is feeling fine. PAST, FAMILY, AND SOCIAL HISTORY Past: Hypertension, bilateral knee arthritis, tonsillectomy and adenoidectomy, and she had a right fractured wrist. She is III Para III. Family: Mother had breast cancer. Father had colon cancer. Grandfather had lung cancer. Another grandfather had prostate cancer. Aunt had parkinsonism. One grandmother had kidney disease. One had dementia. Social: She quit smoking July of 2008. She uses alcohol only occasionally. 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 MEDICATIONS Lisinopril 10 mg; hydrochlorothiazide 25 mg; calcium with vitamin D 1 tablet a day; multivitamin daily; ibuprofen 800 mg p.r.n. for her arthritis. ALLERGIES NEOSPORIN, TOBRAMYCIN, GENTAMICIN. She had a local reaction to the INFLUENZA SHOT, so she stopped getting those 6 years ago. REVIEW OF SYSTEMS General: No fevers, night sweats, weight gain, or weight loss. ENT: No ear, nose, or throat problems. Chest: No shortness of breath or cough. Cardiovascular: No chest pain or palpitations. GI: She has occasional heartburn. : No dysuria, hematuria, or vaginal discharge. Musculoskeletal: Her knees both er her somewhat. Endocrine: No increased thirst, urination, heat, or cold intolerance. Psyche: Negative for depression or anxiety. Skin: Negative. EXAMINATION Blood pressure 132/82. Pulse 76. Respirations 12. Temperature 35.9. Height 158 cm. Weight 100.5 kg. Neck: Supple, without lymphadenopathy or thyromegaly. Chest: Clear to auscultation bilaterally. Cardiovascular: Regular rate and rhythm, no murmur. Abdomen: Soft, plus bowel sounds, nontender. Extremities: Without edema. IMPRESSION/REPORT/PLAN Hypertension. We will check a potassium because of the diuretic. We will check more thoroughly in April when she comes back. DAINA:tea Doc#: [id number] Electronically Signed By:CHASTITY DAVIDSON MD On 11/19/2009 11:14 PM Source: [facility] ISJDICTAPHONESYS Document Id: [id number] REDUCTION EQUIPMENT OPERATOR documented in this encounter Miscellaneous Notes Miscellaneous - Chastity Davidson M.D. - 11/14/2009 9:56 AM CST Ambulatory Depart Summary [address] [address] Visit Information Name: RAZACHRIS Current Date: 11/14/2009 09:56:43 Primary Care Provider: CHASTITY ADVIDSON MD SRIESTEBAN HINTONMIKAELA Wood has been given the following list of medications: Your Medications It is important to take your medications as directed. Use a pill box or chart to help remind you to take your medications. Please let your doctor or nurse know if you have problems taking your medications. Medication/Strength Dose Route Frequency Indications/Special Instructions/Comments calcium-vitamin D (Calcium 600+D) 1 tab Oral once a day multivitamin (multivitamin) 1 tab Oral once a day ibuprofen (ibuprofen 800 mg oral tablet) 1 tab(s) Oral three times a day as needed for Pain Take with food metoprolol (metoprolol 25 mg oral tablet) 1 tab(s) Oral two times a day lisinopril (lisinopril 10 mg oral tablet) 10 mg Oral once a day will not fill again without appt, last seen 4-08 hydrochlorothiazide (hydrochlorothiazide 25 mg oral tablet) 25 mg Oral once a day Additional Information: Yes - Medication list reviewed, patient verbalizes understanding of current medications, and list given to patient. Source: [facility] POWERCHART Document Id: [id number] Electronically signed by Gia [facility] Flatbed Truck Driver [id number] at 03/09/2017 5:55 AM CDT Miscellaneous - Geovanna Fajardo L.PSuresh - 11/14/2009 9:16 AM CST Adult Winch Runner Intake/History Adult Winch Runner Intake/History Entered On: 11/14/2009 9:18 AIR REDUCTION EQUIPMENT OPERATOR Performed On: 11/14/2009 9:16 AIR REDUCTION EQUIPMENT OPERATOR by GEOVANNA FAJARDO LPN Intake Chief Complaint: med check Temperature Core: 35.9DegC(Converted to: 96.6DegF) (LOW) Peripheral Pulse Rate: 76bpm Respiratory Rate: 12br/min (LOW) Systolic Blood Pressure: 132mmHg Diastolic Blood Pressure: 82mmHg NIBP Mean: 99mmHg BP Location: Left upper extremity Height: 158.00cm(Converted to: 5ft 2in, 5.18ft, 62.20in) Clinic BSA: 2.10 Actual Weight: 100.500kg(Converted to: 221.565lb) Body Mass Index: 40kg/m2 Dosing Weight Clinic: 100.50kg GEOVANNA FAJARDO LPN - 11/14/2009 9:16 AIR REDUCTION EQUIPMENT OPERATOR General Info Information Given By: Patient Preferred Communication Mode: Verbal Languages: Frisian GEOVANNA FAJARDO LPN - 11/14/2009 9:16 AIR REDUCTION EQUIPMENT OPERATOR Subjective Pain Symptoms: No GEOVANNA FAJARDO LPN - 11/14/2009 9:16 AIR REDUCTION EQUIPMENT OPERATOR Dependent Habits Tobacco Use/Currently Using: No GEOVANNA FAJARDO LPN - 11/14/2009 9:16 AIR REDUCTION EQUIPMENT OPERATOR Alcohol Use Grid Alcohol Use: Current Frequency: Occasionally GEOVANNA FAJARDO LPN - 11/14/2009 9:16 AIR REDUCTION EQUIPMENT OPERATOR Allergies Allergies (Active) gentamicin Estimated Onset Date: Unspecified ; Created By: GEOVANNA FAJARDO LPN; Reaction Status: Active ; Category: Drug ; Substance: gentamicin ; Type: Allergy ; Updated By: GEOVANNA FAJARDO LPN; Reviewed Date: 11/14/2009 9:15 AIR REDUCTION EQUIPMENT OPERATOR Neosporin Estimated Onset Date: Unspecified ; Created By: GEOVANNA FAJARDO LPN; Reaction Status: Active ; Category: Drug ; Substance: Neosporin ; Type: Allergy ; Updated By: GEOVANNA FAJARDO LPN; Reviewed Date: 11/14/2009 9:15 AIR REDUCTION EQUIPMENT OPERATOR tobramycin Estimated Onset Date: Unspecified ; Created By: GEOVANNA FAJARDO LPN; Reaction Status: Active ; Category: Drug ; Substance: tobramycin ; Type: Allergy ; Updated By: GEOVANNA FAJARDO LPN; Reviewed Date: 11/14/2009 9:15 AIR REDUCTION EQUIPMENT OPERATOR Source: [facility] [employer] Trust[employer]ART Document Id: [id number] AIR REDUCTION EQUIPMENT OPERATOR!27 REDUCTION EQUIPMENT OPERATOR documented in this encounter Plan of Treatment Not on filedocumented as of this encounter Visit Diagnoses Not on filedocumented in this encounter
--- OUTSIDE RECORDS SUMMARY | 2022-08-31 10:10 | XMS_ITS | Encounter Summary ---
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
--- OUTSIDE RECORDS SUMMARY | 2022-08-31 10:10 | XMS_ITS | Encounter Summary ---
:1945 Author Organization [facility] Address [address] [place] [address] Care Team Providers Name Role Phone Unavailable Primary Care Provider Unavailable Encounter Details Date Type Department Care Team Description 01/14/2011 Hospital Encounter [facility] Chastity Paige M.D. 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
--- OUTSIDE RECORDS SUMMARY | 2022-08-31 10:10 | XMS_ITS | Encounter Summary ---
:1945 Author Organization [facility] Address [address] [place] [address] Care Team Providers Name Role Phone Unavailable Primary Care Provider Unavailable Encounter Details Date Type Department Care Team Description 12/17/2011 Hospital Encounter [facility] Tiki Paige M.D. 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 - 12/17/2011 1:17 PM CDT FAMILY MEDICINE DATE: 12/17/2011 REASON FOR VISIT A 66-year-old female here for a medication check. HISTORY OF PRESENT ILLNESS For the last six weeks she has been with her daughter who had to be on bed rest. 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 She had a Pap last year, so she defers that. She is deferring a breast check. She had a colonoscopy in 2005 which was okay. PAST MEDICAL, FAMILY, AND SOCIAL HISTORY Medical: 1. Gastroesophageal reflux disease. 2. Benign hypertension. 3. Arthritis. 4. 3, para 3. 5. Tonsillectomy and adenoidectomy in 1949. 6. Closed fracture of the arm in 1954. 7. Fracture of the hand. Family: Dementia in an aunt, kidney disease, prostate cancer, lung cancer, Parkinsons disease, coloncancer, breast cancer in her mother that was metastatic. She is getting a mammogram, though. Social: She used to smoke. Occasional alcohol. Caffeine of 1 to 4 cups a day. For exercise, she is swimming one to three times a week at [facility]. MEDICATIONS 1. Hydrochlorothiazide 25 mg. 2. Lisinopril 10 mg. 3. Pantoprazole 20 mg. 4. Calcium with vitamin D two to four tablets daily. 5. Ibuprofen 800 mg one tablet t.i.d. p.r.n. pain. 6. Multivitamin daily. ar ALLERGIES 1. NEOSPORIN. 2. TOBRAMYCIN. 3. GENTAMICIN. 4. FLU VACCINE. REVIEW OF SYSTEMS ENT: No ear, nose, throat problems. Chest: No shortness of breath or cough. Cardiovascular: No chest pain or palpitations. Genitourinary: No dysuria, hematuria. Musculoskeletal: Knees bother her. GI: She has lots of heartburn and that is why she is using Prilosec. We went ahead and started pantoprazole 20 mg to see if she can get that cheaper than the [id number] medications. Neurologic: No numbness or tingling. Psychiatric: No anxiety or depression. Skin: Negative for rashes or lesions. Endocrine: No increased thirst, urination, heat or cold intolerance. EXAMINATION VITALS: Blood pressure 124/78. Pulse 76. Respirations 16. Temperature 36.4. Weight 96.5 kg. Height 167.5 cm. HEENT: Tympanic membranes are clear. Oropharynx: Yellow drainage, but she is not having any sinus problems at this time and no sinus tenderness. NECK: Supple without lymphadenopathy, thyromegaly or bruits. CHEST: Clear to auscultation bilaterally. CARDIOVASCULAR: Regular rate and rhythm. BACK: Nontender to percussion. ABDOMEN: Soft, plus bowel sounds, nontender. GENITOURINARY: Deferred. BREASTS: Deferred. NEUROLOGIC: DTRs are 2+/4. Strengths are 5/5. IMPRESSION/REPORT/PLAN 1. Hypertension. 2. Gastroesophageal reflux disease. We are going to check potassium, BUN and creatinine. As mentioned, she is going to get a mammogram soon. VISIT BASED ON TIME Total time spent was 25 minutes with 20 minutes in counseling and care. We did refill medications that needed it. She should return in six months for laboratory studies, or sooner as needed. DAINA:aníbal Doc#: [id number] cc: Electronically Signed By: TIKI DAVIDSON MD On: 01/26/2012 11:37 AM Source: [facility] ISJDICTAPHONESYS Document Id: [id number] documented in this encounter Miscellaneous Notes Miscellaneous - Tiki Davidson M.D. - 12/17/2011 2:24 PM CDT Ambulatory Patient Summary [place] - [address] [id number] Visit Information Name: CHRIS ROCKWELL Current Date: 12/17/2011 14:24:46 Physicians Attending Provider: TIKI DAVIDSON MD Primary Care Provider: TIKI DAVIDSON MD Your Medications Here is a [...] tablet) 25 mg Oral once a day pantoprazole (pantoprazole 20 mg oral enteric coated tablet) 20 mg Oral once a day calcium-vitamin D (Calcium 600+D) 1 tab Oral once a day multivitamin (multivitamin) 1 tab Oral once a day ibuprofen (ibuprofen 800 mg oral tablet) 1 tab(s) Oral three times a day as needed for Pain Take with food Attention: If you have any medications at home that are not on this list, DO NOT take them until youcontact your provider for clarification. Your Allergies & Intolerances Substance Reaction Symptoms [...] GERD [Gastroesophageal reflux disease] Active 12/17/2011 Your Recommendations We want to make sure [...] Test/Treatment Last Done Next Due Additional Information Health Assessment every 1 year 12/17/2011 12/16/2012 Screening Bone Density Once Women greater than age 64 01/23/2011 Completed Checks for bone loss and osteoporosis. Screening Colonoscopy or Flex Sig or Occult Blood 01/27/2006 01/25/2016 Checks for signs of cancer of the colon. Screening Mammogram every 1 year Women 40-75 01/23/2011 01/24/2012 X-rays of breast to check for breast cancer. Lipid Panel every 5 years Age 20-75 12/19/2010 12/18/2015 Checks blood for good (HDL) and bad (LDL) cholesterol. Know your numbers, they are one indicator of your risk for heart attack and stroke. Vaccine: Flu every 1 year 12/17/2011 06/14/2012 Immunization to help prevent you from getting the flu strain expected to be a problem for that year's flu season. Vaccine: Pneumococcal Once 12/18/2010 Completed Immunization to help prevent you from getting 23 kinds of pneumococcal bacteria that can lead to pneumonia, bacteremia and meningitis. Vaccine: Tetanus every 10 years 01/14/2011 01/11/2021 Immunization to help prevent you from getting the serious disease Tetanus (Lockjaw). Your Upcoming Appointments Date Time Location Reason Provider No Appointments found Your Goals/Additional instructions: Source: [facility] POWERCHART Document Id: [id number] Miscellaneous - Tiki Davidson M.D. - 12/17/2011 2:24 PM CDT Ambulatory Depart Summary [address] [address] Visit Information Name: CHRIS ROCKWELL Visit Date: 12/17/2011 14:24:46 Attending Provider: TIKI DAVIDSON MD Primary Care [...] tablet) 25 mg Oral once a day pantoprazole (pantoprazole 20 mg oral enteric coated tablet) 20 mg Oral once a day calcium-vitamin D (Calcium 600+D) 1 tab Oral once a day multivitamin (multivitamin) 1 tab Oral once a day ibuprofen (ibuprofen 800 mg oral tablet) 1 tab(s) Oral three times a day as needed for Pain Take with food Attention: If you have any medications at home that are not on this list, DO NOT take them until youcontact your provider for clarification. Additional Information: Yes - . Source: [facility] NextVRCHART Document Id: [id number] Luis Miguel - Chapo Fajardo L.PSuresh - 12/17/2011 1:32 PM CDT Health Assessment Health Assessment Entered On: 12/17/2011 13:33 CDT Performed On: 12/17/2011 13:32 CDT by CHAPO FAJARDO LPN Health Assessment Complete Health Assessment Complete or Modified : Annual Health Assessment Annual Health Assessment Completed : Yes CHAPO FAJARDO LPN - 12/17/2011 13:32 CDT Nutrition Nutrition Risk Factors by History Adult : None CHAPO FAJARDO LPN - 12/17/2011 13:32 CDT Functional Current Daily Living Assistance : None CHAPO FAJARDO LPN - 12/17/2011 13:32 CDT Dependent Habits Tobacco Use/Currently Using : No Smoking Status : Former smoker CHAPO FAJARDO LPN - 12/17/2011 13:32 CDT Psychosocial Domestic Abuse Concerns : None CHAPO FAJARDO LPN - 12/17/2011 13:32 CDT Advance Directive Advanced Directives : No CHAPO FAJARDO LPN - 12/17/2011 13:32 CDT Educ Needs Learning Style Preference Adult Grid Patient : None Family : None CHAPO FAJARDO LPN - 12/17/2011 13:32 CDT Source: [facility] [employer] Document Id: [id number] CDT!19 Luis Miguel - Chapo Fajardo L.P.N. 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 Intake/History Entered On: 12/17/2011 13:30 CDT Performed On: 12/17/2011 13:26 CDT by CHAPO FAJARDO LPN Intake Chief Complaint : annual physical Temperature Core : 36.4C(Converted to: 97.5DegF) (LOW) Peripheral Pulse Rate : 76/min Respiratory Rate : 16/min Heart Rhythm : Regular Systolic Blood Pressure : 124mmHg Diastolic Blood Pressure : 78mmHg NIBP Mean : 93mmHg BP Location : Left upper extremity Blood Pressure Cuff Size : Large Height : 157.5cm(Converted to: 5ft 2inch(es), 62.01inch(es)) Actual Weight : 96.5kg(Converted to: 212lb 12oz) Dosing Weight Clinic : 96.50kg Clinic BSA : 2.05 Body Mass Index : 38.90kg/m2 CHAPO FAJARDO LPN - 12/17/2011 13:26 CDT General Info Information Given By : Patient Preferred Communication Mode : Verbal Languages : Scottish CHAPO FAJARDO LPN - 12/17/2011 13:26 CDT Subjective Pain Symptoms : No CHAPO FAJARDO LPN - 12/17/2011 13:26 CDT Dependent Habits Tobacco Use/Currently Using : No Smoking Status : Former smoker CHAPO FAJARDO LPN - 12/17/2011 13:26 CDT Allergy Allergies (Active) flu vaccines Estimated Onset Date: <not entered> 07/14/2004 ; Reactions: Redness ; Created By:TIKI DAVIDSON MD; Reaction Status: Active ; Category: Drug ; Substance: flu vaccines ; Type: Allergy ; Updated By: TIKI DAVIDSON MD; Reviewed Date: 11/14/2009 9:37 BACKUP SAWYER gentamicin Estimated Onset Date: Unspecified ; Created By: CHAPO FAJARDO LPN; Reaction Status: Active ; Category: Drug ; Substance: gentamicin ; Type: Allergy ; Updated By: CHAPO FAJARDO LPN; Reviewed Date: 11/14/2009 9:15 BACKUP SAWYER Neosporin Estimated Onset Date: Unspecified ; Created By: CHAPO FAJARDO LPN; Reaction Status: Active ; Category: Drug ; Substance: Neosporin ; Type: Allergy ; Updated By: CHAPO FAJARDO LPN; Reviewed Date: 11/14/2009 9:15 BACKUP SAWYER tobramycin Estimated Onset Date: Unspecified ; Created By: CHAPO FAJARDO LPN; Reaction Status: Active ; Category: Drug ; Substance: tobramycin ; Type: Allergy ; Updated By: CHAPO FAJARDO LPN; Reviewed Date: 11/14/2009 9:15 BACKUP SAWYER Source: [facility] POWERCHART Document Id: [id number] CDT!26 Miscellaneous - Tiki Davidson M.D. - 12/17/2011 1:17 PM CDT CL December 21, 2011 CHRIS ROCKWELL [address] [employer], [place] [id number] Patient Date of : 1945 Dear Chris: Your kidney function is normal at 0.8. Normal is 04 to 1.5. You are a little bit on the dry side because your BUN was 28. Normal is up to 24. Your potassium is slightly low at 3.4. Normal is 3.5 to 5. Contact me if you want to take potassium tablets or if you would like to use more potassium in your diet. If you have any questions, please contact me. Sincerely, Tiki Davidson M.D. [facility] [email or web address] :sbs Doc#: [id number] Electronically Signed By: TIKI DAVIDSON MD On: 12/22/2011 02:41 PM This document has images extracted. Source: [facility] ISJDICTAPHONESYS Document Id: [id number] documented in this encounter Plan of Treatment Not on filedocumented as of this encounter Procedures Procedure Name Priority Date/Time Associated Comments Diagnosis BUN (BLOOD UREA Routine 12/17/2011 2:30 PM Result s for this NITROGEN), S/P CDT procedure are in the results section. POTASSIUM, S/P Routine 12/17/2011 2:30 PM Results for this CDT procedure are i n the results section. CREATININE WITH Routine 12/17/2011 2:30 PM Result s for this EGFR, S/P CDT procedure are i n the results section. documented in this encounter Results (ABNORMAL) Potassium (12/17/2011 2:30 PM CDT) P athologist Signature Potassium, S 3.4 (L) 3.5 - 5.0 POWERCHART MML Specimen (Source) Anatomical Collection Method Collection Time Re ceived Time Location / / Volume Laterality Blood 12/17/2011 2:30 PM CDT Tiki Davidson M.D. LAB BLOOD ADD-ON Performing Organization Address City/State/ZIP Code Phon e Number POWERCHART Creatinine with eGFR (12/17/2011 2:30 PM CDT) P athologist Signature Creatinine 0.8 0.4 - 1.5 POWERCHART MGDL HXeGFR (MDRD) >60.0 POWERCHART Comment: Results are in mL/min/1.73m squared CKD Stage I: GFR > 90 CKD Stage II: GFR 60 to 89 CKD Stage III: GFR 30 to 59 CKD Stage IV: GFR 15 to 29 CKD Stage V: GFR < 15 or Dialysis eGFR Black/ >60 MLMIN PO WERCHART Specimen (Source) Anatomical Collection Method Collection Time Re ceived Time Location / / Volume Laterality Blood 12/17/2011 2:30 PM CDT Tiki Davidson M.D. LAB BLOOD ADD-ON Performing Organization Address City/State/ZIP Code Phon e Number POWERCHART (ABNORMAL) BUN (Blood Urea Nitrogen) (12/17/2011 2:30 PM CDT) P athologist Signature BUN (Blood Urea 28 (H) 5 - 24 POWERCHART Nitrogen), S MGDL Specimen (Source) Anatomical Collection Method Collection Time Re ceived Time Location / / Volume Laterality Blood 12/17/2011 2:30 PM CDT Tiki Davidson M.D. LAB BLOOD ADD-ON Performing Organization Address City/State/ZIP Code Phon e Number POWERCHART documented in this encounter Visit Diagnoses Not on filedocumented in this encounter
--- OUTSIDE RECORDS SUMMARY | 2022-08-31 10:10 | XMS_ITS | Encounter Summary ---
:1945 Author Organization [facility] Address [address] [place] [address] Care Team Providers Name Role Phone Unavailable Primary Care Provider Unavailable Encounter Details Date Type Department Care Team Description 11/10/2012 Hospital Encounter HX [facility] Chastity Blackmon M.D. 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 documented in this encounter Results US Pelvis Transvaginal and Transabdominal (11/10/2012 1:37 PM IV THERAPY NURSE) Anatomical Region Laterality Modality Pelvis N/A Ultrasound Specimen (Source) Anatomical Collection Method Collection Time Re ceived Time Location / / Volume Laterality 11/10/2012 1:37 PM IV THERAPY NURSE Addenda Addendum by Provider, Ankush Monson 11/10/2012 1:37 PM IV THERAPY NURSE RAD^^^MA US Pelvic And Endovaginal 11/10/2012 13:37:00 Addendum by Provider, Ankush Monson 11/10/2012 1:30 PM IV THERAPY NURSE RAD^^^MA US Pelvic And Endovaginal 11/10/2012 13:30:00 Impressions 11/10/2012 3:10 PM IV THERAPY NURSE Abnormally thickened endometrium with en dometrial canal fluid and faintly delineated cystic foci, findings concerning for endometrial carcinoma in the setting of postmenopaus al bleeding. Direct visualization with tissue sampling recom mended. Narrative 11/10/2012 3:10 PM IV THERAPY NURSE Sonographic evaluation of the pelvis per formed utilizing transabdominal and endovaginal scanning technique. Comparison: No prior. Findings: Uterus measures approximately 7.5 x 3.5 x 4 cm. Endometrial complex is abnormally thicke olimpia in a postmenopausal patient measuring between 8-11 mm. Fluid present within the endometrial canal. Echogenic focus posterior lower uterine segment near the endocervical canal with posterior acoustic enhancemen t. No vascularity. Cervical nabothian cysts. Ovaries not visualized. No abnormal adne xal mass or free pelvic fluid identified. Procedure Note Marc Bull M.D. / Provider, Julio Cesar ortiz M.D. - 02/20/2017 Sonographic evaluation of the pelvis per formed utilizing transabdominal and endovaginal scanning technique. Comparison: No prior. Findings: Uterus measures approximately 7.5 x 3.5 x 4 cm. Endometrial complex is abnormally thicke olimpia in a postmenopausal patient measuring between 8-11 mm. Fluid present within the endometrial canal. Echogenic focus posterior lower uterine segment near the endocervical canal with posterior acoustic enhancemen t. No vascularity. Cervical nabothian cysts. Ovaries not visualized. No abnormal adne xal mass or free pelvic fluid identified. IMPRESSION: Abnormally thickened endometrium with en dometrial canal fluid and faintly delineated cystic foci, findings concerning for endometrial carcinoma in the setting of postmenopaus al bleeding. Direct visualization with tissue sampling recom mended. Ashley Mtz R.V.T., [employer] IMG US PROCEDURES documented in this encounter Visit Diagnoses Not on filedocumented in this encounter
--- OUTSIDE RECORDS SUMMARY | 2022-08-31 10:10 | XMS_ITS | Encounter Summary ---
:1945 Author Organization [facility] Address [address] [place] [address] Care Team Providers Name Role Phone Unavailable Primary Care Provider Unavailable Encounter Details Date Type Department Care Team Description 12/07/2007 Hospital Encounter [facility] Chastity Paige M.D. 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 - 12/07/2007 12:00 [place] [address] Name: CHRIS ROCKWELL MR#: [id number] : [birth year] Dictating Provider: Chastity Davidson MD Serv Date: 12/07/07 CLINIC NOTE S: Chris is a 62-year-old female who is here because she noted her tongue starting to swell after she was eating lunch. Her tongue feels numb only on the left side of the tongue. She has not tried any other measures. Her lunch consisted of some lettuce, which was new, spinach, onion, broccoli, cauliflower, carrots, radishes, and [employer] ranch and sibley dressing. She used all the rest of the stuff previously on Thursday. She feels it is somewhat going away now; it started about half an hour ago. One times years ago her eyes swelled up, but she thought that was due to a bite. MEDICATIONS: Lisinopril and hydrochlorothiazide and has been taking those for a week. She also started enteric coated aspirin last week. We talked about perfumes, shampoos, career representative detergents. She did say she changes the career representative detergent to whatever is the cheapest. She is also fighting a stuffy nose with some yellow rhinorrhea for the last two days; it is not as yellow today. O: Blood pressure 116/74. Pulse 80. Respirations 16. Temperature 36.8. Sinuses are nontender. Oropharynx with some drainage. The left side of her tongue in the front is swollen. I did not see any trauma or bite eldridge. Neck is supple without lymphadenopathy. Chest - Clear to auscultation bilaterally. Cardiovascular - Regular rate and rhythm. No murmur. A: UNUSUAL ALLERGIC REACTION. P: I did write out for an Epi-Pen for her to use if she has worsening swelling and will put her on Benadryl 50 mg q6h. Will stop her lisinopril and hydrochlorothiazide and recheck on her blood pressure as it is controlling her blood pressure really well. Chastity Davidson MD /wn/lb Authenticated by Chastity Davidson MD on 01/02/2008 20:09:30 Authorized physician signature on file [facility] NAME: CHRIS ROCKWELL [facility] MR#: [id number] [place] [address] : 1945 PHYSICIAN: Chastity Davidson MD VISIT DATE: 12/07/2007 CLINIC PROGRESS NOTE [facility] Name: CHRIS ROCKWELL CLINIC PROGRESS NOTE Source: [facility]AY[facility] ISJHXDICTAPHONESYS Document Id: [id number] documented in this encounter Plan of Treatment Not on filedocumented as of this encounter Visit Diagnoses Not on filedocumented in this encounter
--- OUTSIDE RECORDS SUMMARY | 2022-08-31 10:10 | XMS_ITS | Encounter Summary ---
:1945 Author Organization [facility] Address [address] [place] [address] Care Team Providers Name Role Phone Unavailable Primary Care Provider Unavailable Encounter Details Date Type Department Care Team Description 01/13/2006 Hospital Encounter [facility]X [facility] Chastity Davidson M.D. 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
--- OUTSIDE RECORDS SUMMARY | 2022-08-31 10:10 | XMS_ITS | Encounter Summary ---
:1945 Author Organization [facility] Address [address] [place] [address] Care Team Providers Name Role Phone Unavailable Primary Care Provider Unavailable Encounter Details Date Type Department Care Team Description 01/26/2008 Hospital Encounter [facility] [facility] Chastity Paige M.D. 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 - 01/26/2008 12:00 [place] [address] Name: CHRIS PERSON MR#: [id number] : [birth year] Dictating Provider: Chastity Davidson MD Serv Date: 01/26/08 CLINIC NOTE S: She is a 62-year-old female here for followup blood pressure. She has actually run out of her blood pressure medications and has been off for the last 2 days. It was well controlled while she was on it. They were running from 112 to 130 over 70 to 85. About a week after she began these medications, we were a little worried that she might be allergic to them. She has an unusual allergic reaction where the top of her lip felt tingly and then she started having some moving symptoms of swelling. She continued on her medications and she did not have any further allergy symptoms. She did get an EpiPen just in case she had symptoms like that again. She occasionally has a tickle cough, but it is not bad. She thinks she should continue with the medications. She is not having chest pain, shortness of breath. No other symptoms. MEDICATIONS: Metoprolol 25 mg; ibuprofen 800 mg 2 to 3 times a day p.r.n. pain; Zantac 150 mg p.r.n.; multivitamin; calcium with D; aspirin 81 mg; lisinopril 10 mg; hydrochlorothiazide 25 mg, the last 2 are the ones she recently started. O: Blood pressure 150/100. As mentioned, she hasn't had her extra medications for a few days. Pulse 60. Respirations 16. Temperature 37.2. Weight 104.7. Neck - Supple, without bruits. Chest - Clear to auscultation bilaterally. Cardiovascular - Regular rate and rhythm, no murmur. A: HYPERTENSION. P: Refill lisinopril and Dyazide for 6 months. We will check a Chem-8 to make her potassium isn't lowered. Chastity Davidson MD /[facility] Authenticated by Chastity Davidson MD on 02/09/2008 21:10:18 Authorized physician signature on file Doc#: [id number] [facility] NAME: CHRIS PERSON [facility] MR#: [id number] [place] [address] : 1945 PHYSICIAN: Chastity Davidson MD VISIT DATE: 01/26/2008 CLINIC PROGRESS NOTE [facility] Name: CHRIS PERSON CLINIC PROGRESS NOTE [facility]: [facility] ISJHXDICTAPHONESYS Document Id: [id number] documented in this encounter Plan of Treatment Not on filedocumented as of this encounter Visit Diagnoses Not on filedocumented in this encounter
--- OUTSIDE RECORDS SUMMARY | 2022-08-31 10:10 | XMS_ITS | Encounter Summary ---
:1945 Author Organization [facility] Address [address] [place] [address] Care Team Providers Name Role Phone Unavailable Primary Care Provider Unavailable Encounter Details Date Type Department Care Team Description 11/11/2012 Hospital Encounter HX [facility] Clement Lunsford M.D. 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 documented as of this encounter Consult Notes Kent, Abdirahman J, M.D. - 11/11/2012 1:58 PM CST CC DATE: 11/11/2012 REQUESTING PROVIDER: Chastity Davidson M.D. CONSULTING: Dr. Abdirahman Jain. CHIEF COMPLAINT/REASON FOR VISIT Postmenopausal vaginal bleeding. HISTORY OF PRESENT ILLNESS The patient is a 67-year-old, G3, P3 who presents today for a one-week history of very light vaginalbleeding. The patient states she went through menopause multiple years ago, sometime in her 40s or 50s. She reports an episode of spotting in 2003 which resolved after some sort of biopsy. She then noted a very small light amount of spotting on some toilet paper over the last week. The bleeding is nowstopped. She denies any pain associated with it. She denies any increasing abdominal girth. She had this new spotting investigated by her primary provider, Dr. Davidson, who had an ultrasound obtained on November 10. This showed a thickened endometrial complex measuring 8-11 mm. The uterus itself measures 7.5 x2.5 x4 cm. There is an echogenic focus in the posterior lower uterine segment. The ovaries were not visualized. 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 She reports regular gynecologic examinations. Denies any history of abnormal Paps. MEDICAL: 1. Gastroesophageal reflux disease. 2. Benign hypertension. 3. Arthritis. SURGICAL: 1. Tonsillectomy and adenoidectomy in 1950. 2. Closed fracture of her arm in 1955. 3. Hand fracture. SOCIAL HISTORY She is a former smoker with some occasional alcohol use. Denies any illegal drug use. FAMILY HISTORY Dementia in an aunt. Her mother had metastatic breast cancer. CURRENT MEDICATIONS 1. Hydrochlorothiazide. 2. Pantoprazole. 3. Lisinopril. 4. Calcium and vitamin D. 5. Multivitamin. 6. Ibuprofen p.r.n. ALLERGIES 1. NEOSPORIN. 2. TOBRAMYCIN. 3. GENTAMICIN. 4. FLU VACCINE. SYSTEMS REVIEW Negative except as per history of present illness. PROCEDURE: The risks, benefits, indications, alternatives of an endometrial biopsy were discussed with the patient in detail. Informed consent is obtained. The patient is placed in the supine position.A speculum was placed into her vagina. The cervix is swabbed with Betadine. An endometrial biopsy Pipelle was inserted through the cervix into the uterus to a depth of 7 cm. A small amount of tissue isobtained with two passes of the endometrial biopsy Pipelle. The Pipelle and speculum were then removed. The patient tolerated the procedure very well. IMPRESSION/REPORT/PLAN Postmenopausal vaginal bleeding. PLAN: The patient will be informed of the results from today. She is informed of the possibility of the results showing a malignancy. She desires to be notified by phone next Thursday afternoon or . She is encouraged to call or return to clinic should she experience significant pain or bleeding in the meantime. JJD:psbb Doc#: [id number] cc: Chastity Davidson M.D. Electronically Signed By: ABDIRAHMAN JAIN MD On: 12/13/2012 04:24 PM Source: [facility] ISJDICTAPHONESYS Document Id: [id number] documented in this encounter Miscellaneous Notes Miscellaneous - Ana Pizano, R.N. - 11/11/2012 2:05 PM CST Adult Multimedia Coordinator Intake/History Adult Multimedia Coordinator Intake/History Entered On: 11/11/2012 14:09 FORESTRY CREW CHIEF Performed On: 11/11/2012 14:05 FORESTRY CREW CHIEF by ANA PIZANO LPN Intake Chief Complaint : Chris is as a referral from Dr Haywood for an abnormal US LMP Date : Postmenopausal Peripheral Pulse Rate : 72/min Systolic Blood Pressure : 130mmHg Diastolic Blood Pressure : 70mmHg NIBP Mean : 90mmHg BP Location : Right upper extremity Blood Pressure Cuff Size : Regular Actual Weight : 94.3kg(Converted to: 207lb 14oz) Dosing Weight Clinic : 94.30kg ANA PIZANO LPN - 11/11/2012 14:05 FORESTRY CREW CHIEF General Info Information Given By : Patient Languages : Filipino ANA PIZANO LPN - 11/11/2012 14:05 FORESTRY CREW CHIEF Subjective Pain Symptoms : No ANA PIZANO ELECTROPHYSIOLOGY SCIENTIST - 11/11/2012 14:05 FORESTRY CREW CHIEF Dependent Habits Tobacco Use/Currently Using : No Smoking Status : Former smoker Alcohol Use : Yes ANA PIZANO LPN - 11/11/2012 14:05 FORESTRY CREW CHIEF Caffeine Use Grid Caffeine Use : Current Type : Chocolate, Coffee Frequency : Daily ANA PIZANO LPN - 11/11/2012 14:05 FORESTRY CREW CHIEF Recreational Drug Use Grid Drug Use : None ANA PIZANO LPN - 11/11/2012 14:05 FORESTRY CREW CHIEF Allergy Allergies (Active) flu vaccines Estimated Onset Date: <not entered> 07/14/2004 ; Reactions: Redness ; Created By:CHASTITY DAVIDSON MD; Reaction Status: Active ; Category: Drug ; Substance: flu vaccines ; Type: Allergy ; Updated By: CHASTITY DAVIDSON MD; Reviewed Date: 11/11/2012 14:03 FORESTRY CREW CHIEF gentamicin Estimated Onset Date: Unspecified ; Created By: CHAPO FAJARDO LPN; Reaction Status: Active ; Category: Drug ; Substance: gentamicin ; Type: Allergy ; Updated By: CHAPO FAJARDO LPN; Reviewed Date: 11/11/2012 14:03 FORESTRY CREW CHIEF Neosporin Estimated Onset Date: Unspecified ; Created By: CHAPO FAJARDO LPN; Reaction Status: Active ; Category: Drug ; Substance: Neosporin ; Type: Allergy ; Updated By: CHAPO FAJARDO LPN; Reviewed Date: 11/11/2012 14:03 FORESTRY CREW CHIEF tobramycin Estimated Onset Date: Unspecified ; Created By: CHAPO FAJARDO LPN; Reaction Status: Active ; Category: Drug ; Substance: tobramycin ; Type: Allergy ; Updated By: CHAPO FAJARDO LPN; Reviewed Date: 11/11/2012 14:03 FORESTRY CREW CHIEF Source: [employer] Document Id: [id number] STRY CREW CHIEF documented in this encounter Plan of Treatment Not on filedocumented as of this encounter Procedures Procedure Name Priority Date/Time Associated Diagnosis Comme nts SURGICAL PATHOLOGY Routine 11/11/2012 4:13 PM Res ults for this FORESTRY CREW CHIEF procedure are i n the results section. documented in this encounter Results Pathology Surgical Pathology (11/11/2012 4:13 PM FORESTRY CREW CHIEF) Specimen (Source) Anatomical Collection Method Collection Time Re ceived Time Location / / Volume Laterality 11/11/2012 4:13 PM FORESTRY CREW CHIEF Narrative [facility] - 11/12/2012 11:27 AM FORESTRY CREW CHIEF [facility] [address] [facility] [address] [place] [id number] Patient Name: CHRIS ROCKWELL Patient ID #: [id number] Collected: 11/11/2012 Address: [facility]/State/Zip: [address] [place], [place] ??[id number] Received: Reported: 11/11/2012 11/12/2012 Soc. Sec. #: [id number] ?? /Age/Sex 1945 (Age: 67) ??F Physician(s): MIKEL JAIN MD Copy To: ? [facility] ??[phone] [facility] [address] [place] [address], ??[place] ??[id number] SURGICAL PATHOLOGY REPORT FINAL DIAGNOSIS: ENDOMETRIUM, BIOPSY: --- POLYPOID ENDOMETRIAL FRAGMENT WITH A SIMPLE HYPERPLASTIC GLAND PATTERN. --- ACCOMPANYING INACTIVE ENDOMETRIAL FR AGMENTS. Signed Copy in Chart dms/11/12/2012 NEY CARUSO M.D. SPECIMEN(S) RECEIVED: ENDOMETRIAL BIOPSY CLINICAL HISTORY: POSTMENOPAUSAL BLEEDING GROSS DESCRIPTION: Consists of corbett tissue debris to a 0.8 c m diameter. ESB, one cassette. ([id number]) DDG/KEANU/11/11/2012 MICROSCOPIC DESCRIPTION: Reviewed by Ney Caruso M.D., Path ologist [facility]/11/12/2012 Abdirahman Jain M.D. LAB SURG PATH ORDERABLES Performing Organization Address City/[facility]/ZIP Code Phon e Number [facility] documented in this encounter Visit Diagnoses Not on filedocumented in this encounter
--- OUTSIDE RECORDS SUMMARY | 2022-08-31 10:10 | XMS_ITS | Encounter Summary ---
:1945 Author Organization [facility] Address [address] [place] [address] Care Team Providers Name Role Phone Unavailable Primary Care Provider Unavailable Encounter Details Date Type Department Care Team Description 02/03/[address] [facility] Chastity Paige M.D. 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
--- OUTSIDE RECORDS SUMMARY | 2022-08-31 10:10 | XMS_ITS | Encounter Summary ---
:1945 Author Organization [facility] Address [address] [place] [address] Care Team Providers Name Role Phone Unavailable Primary Care Provider Unavailable Encounter Details Date Type Department Care Team Description 01/07/2006 Hospital Encounter [facility] [place] [place] Chastity Paige M.D. 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
--- OUTSIDE RECORDS SUMMARY | 2022-08-31 10:10 | XMS_ITS | Encounter Summary ---
:[address] [facility] Address [address] [place] [address] Care Team Providers Name Role Phone Unavailable Primary Care Provider Unavailable Encounter Details Date Type Department Care Team Description 12/19/2010 Hospital Encounter HX [facility] Velasquez Davidson M.D. 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
--- OUTSIDE RECORDS SUMMARY | 2022-08-31 10:10 | XMS_ITS | Encounter Summary ---
:1945 Author Organization [facility] Address [address] [place] [address] Care Team Providers Name Role Phone Unavailable Primary Care Provider Unavailable Encounter Details Date Type Department Care Team Description 01/23/2011 Hospital Encounter HX [facility] BONE DENS Chastity Davidson M.D. 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 BMD BONE DENSITY Routine 01/23/2011 11:20 AM Resu lts for this SPINE HIPS CDT procedure are i n the results section. documented in this encounter Results BI Breast Screening Bilateral (01/23/2011 11:25 AM CDT) Anatomical Region Laterality Modality Breast Bilateral Mammography Specimen (Source) Anatomical Collection Method Collection Time Re ceived Time Location / / Volume Laterality 01/23/2011 11:25 AM CDT Addenda Addendum by Provider, Ankush Monson o yamile 01/23/2011 11:25 AM CDT RAD^^^ANNIE VALENCIA MAMMO SCREENING W CADD 01/23/2011 11:25:00 Impressions 01/23/2011 1:32 PM CDT 1. Benign findings only, ACR category 2. ?? 2. I recommend routine yearly mammograms on this patient. ?? BREAST MAMMOGRAPHY-GENERAL OBSERVATION: The false negative rate for mammography is 15 to 20%. It cannot be u sed, therefore, to replace regular physical examination. A normal o r noncontributory mammogram report should also not deter the aggress tin further workup of any suspected palpable masses. Narrative 01/23/2011 1:32 PM CDT Bilateral craniocaudal and oblique views of the breasts were obtained digitally, and compared to the patient's prior studies of 01/13/2006 and 06/04/2004. ?? The breast parenchyma remains predominan tly fatty and fibroglandular in appearance. Benign appearing calcific ations are again noted bilaterally. There are no suspicious katie upings of calcifications, dominant nodules, areas of skin thickeni ng or nipple retraction to suggest malignancy. ?? Computer Aided Detection was utilized du ring the interpretation of this exam. ?? Procedure Note Wai Ralph M.D. / Provider, Zac stern M.D. - 02/25/2017 Bilateral craniocaudal and oblique views of the breasts were obtained digitally, and compared to the patient's prior studies of 01/13/2006 and 06/04/2004. The breast parenchyma remains predominan tly fatty [...] further workup of any suspected palpable masses. Tomasa Cantor(R)(CT), Sakshi(R) IMG BI PROCED URES BMD BONE DENSITY SPINE HIPS (01/23/2011 11:20 AM CDT) Anatomical Region Laterality Modality Hip, Lumbar Spine N/A Radiographic Imaging Specimen (Source) Anatomical Collection Method Collection Time Re ceived Time Location / / Volume Laterality 01/23/2011 11:20 AM CDT Addenda Addendum by ProviderErmias M.D. o yamile 01/23/2011 11:20 AM CDT RAD^^^MA BD Bone Density Screening 01/23/2011 11:20:00 Impressions 01/23/2011 11:51 AM CDT Osteopenia in both of the hips indicates increased fracture risk according to WHO criteria. Narrative 01/23/2011 11:51 AM CDT DEXA bone density is performed of the L- spine and both hips. ?? Lumbar spine:total T-score -0.1 total BMD 1.166 grams/cm squared ?? B. hips:FRANTZ appropriate, total T-score - 1.1 (worst T-score -2 in the femoral necks) total BMD 0.871 grams/cm squared ?? The LVA morphometry does not yield any u seful diagnostic information. ?? Procedure Note Ata Alba M.D. / Provider, Zac stern M.D. - 02/25/2017 DEXA bone density is performed of the L- spine and both hips. Lumbar spine:total T-score -0.1 total BMD 1.166 grams/cm squared B. hips:FRANTZ appropriate, total T-score - 1.1 (worst T-score -2 in the femoral necks) total BMD 0.871 grams/cm squared The LVA morphometry does not yield any u seful diagnostic information. IMPRESSION: Osteopenia in both of the hi ps indicates increased fracture risk according to WHO criteria. Historical Provider IMG DXA PROCEDURES documented in this encounter Visit Diagnoses Not on filedocumented in this encounter
--- OUTSIDE RECORDS SUMMARY | 2022-08-31 10:10 | XMS_ITS | Encounter Summary ---
:1945 Author Organization [facility] Address [address] [place] [address] Care Team Providers Name Role Phone Unavailable Primary Care Provider Unavailable Encounter Details Date Type Department Care Team Description 02/21/2013 Hospital Encounter HX [facility] Clement Lunsford M.D. 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 - 02/21/2013 1:06 PM CDT [id number] CHIEF COMPLAINT/REASON FOR VISIT Simple endometrial hyperplasia. HISTORY OF PRESENT ILLNESS The patient is a 67-year-old female who was last seen in November. At that time, she was noted to have some postmenopausal vaginal bleeding and had endometrial biopsy that showed simple hyperplastic gland pattern. The patient at that time was placed on Provera. She has been taking this, and it has been going very well. She has no particular complaints. She does not describe any particular fatigue, headaches, or difficulty sleeping. VITAL SIGNS Pulse is 88, blood pressure 110/70. Weight is 94.4 kg. PHYSICAL EXAMINATION GENERAL: She is a well-developed, well-nourished female in no acute distress. ABDOMEN: Soft, nontender, nondistended. EXTREMITIES: Warm and dry without edema. PSYCHIATRIC: She is alert and oriented x3. IMPRESSION/REPORT/PLAN Simple hyperplasia. PLAN: I recommended an additional 3 months of the Provera. I then recommended a repeat endometrial biopsy be obtained at that time. Further management will be based on the results of the endometrial biopsy. It is noted to her that should the hypoplasia regress that she may be able to discontinue Premarin and not necessarily need further treatment. It is also noted to her that should the hyperplasia progress and any atypia be identified that surgical treatment may be necessary. Abdirahman Jain M.D./pos Electronically Signed By: ABDIRAHMAN JAIN MD On: 03/11/2013 11:21 AM Source: [facility] [email or web address] Document Id: [id number] documented in this encounter Miscellaneous Notes Miscellaneous - Conversion, Historical Provider Ser - 02/21/2013 1:24 PM CDT Adult Java Tech Intake/History Adult Java Tech Intake/History Entered On: 02/21/2013 13:28 CDT Performed On: 02/21/2013 13:24 CDT by CHAPO TILLEY KELTON Intake Chief Complaint : follow up on postmenopausal bleeding Peripheral Pulse Rate : 88 /min Heart Rhythm : Regular Systolic Blood Pressure : 110 mmHg Diastolic Blood Pressure : 70 mmHg NIBP Mean : 83 mmHg BP Location : Left upper extremity Blood Pressure Cuff Size : Large Oxygen Therapy : Room air Actual Weight : 94.4 kg(Converted to: 208 lb 2 oz) Weight Source : Standing scale Dosing Weight Clinic : 94.4 kg CHAPO TILLEY KELTON - 02/21/2013 13:24 CDT General Info Information Given By : Patient, Spouse Preferred Communication Mode : Verbal Languages : Lithuanian CHAPO TILLEY KELTON - 02/21/2013 13:24 CDT Subjective Pain Symptoms : No CHAPO TILLEY KELTON - 02/21/2013 13:24 CDT Dependent Habits Tobacco Use/Currently Using : No Smoking Status : Former smoker Alcohol Use : Yes CHAPO TILLEY KELTON - 02/21/2013 13:24 CDT Caffeine Use Grid Caffeine Use : Current Type : Chocolate, Coffee Frequency : Daily Amount : 2-3 CHAPO TILLEY KELTON - 02/21/2013 13:24 CDT Recreational Drug Use Grid Drug Use : None CHAPO TILLEY KELTON - 02/21/2013 13:24 CDT Source: [employer] Document Id: [id number] CDT!33 documented in this encounter Plan of Treatment Not on filedocumented as of this encounter Visit Diagnoses Not on filedocumented in this encounter
--- OUTSIDE RECORDS SUMMARY | 2022-08-31 10:10 | XMS_ITS | Encounter Summary ---
:1945 Author Organization [facility] Address [address] [place] [address] Care Team Providers Name Role Phone Unavailable Primary Care Provider Unavailable Encounter Details Date Type Department Care Team Description 01/27/2006 Hospital Encounter HX [facility] Jeyson Kevin M.D. 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
--- OUTSIDE RECORDS SUMMARY | 2022-08-31 10:10 | XMS_ITS | Encounter Summary ---
:1945 Author Organization [facility] Address [address] [place] [address] Care Team Providers Name Role Phone Unavailable Primary Care Provider Unavailable Encounter Details Date Type Department Care Team Description 11/30/2007 [facility] En[place] [facility] [facility] [place]astity Paige M.D. 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 - 11/30/2007 12:00 [place] [address] Name: CHRIS PERSON MR#: [id number] : [birth year] Dictating Provider: Chastity Davidson MD Serv Date: 11/30/07 CLINIC NOTE S: Chris is a 62-year-old female here for med check. MEDICATIONS: Metoprolol 25 mg b.i.d., ibuprofen two to three times a day, Zantac p.r.n., multivitamins, and calcium with D daily. Today her blood pressure is up quite high. She is retired and says she has gained weight, which is part of the reason it is higher. She also says her right knee bothers her. It was worse in September. We do have an x-ray, which shows advanced arthritis on the medial side of both knees, the right was worse than the left. ALLERGIES: TOBRAMYCIN, GENTAMICIN, AND NEOSPORIN SECONDARY TO AN EYE INFECTION THAT WOULD NOT HEAL A FEW YEARS AGO. She denies visual changes except she is having to use her glasses. She does not have any nausea, vomiting or severe headache. REVIEW OF SYSTEMS: Positive for occasional stress incontinence, but negative for everything else. She did have an upper respiratory infection in October. O: Blood pressure 170/120, recheck was 176/114. Pulse 64. Respirations 20. Temperature 36.5. Weight 104.1. Height 160 cm. Neck is supple without lymphadenopathy or bruits. She does have thyromegaly. Chest - Clear to auscultation bilaterally. Cardiovascular - Regular rate and rhythm. Abdomen - Soft, plus bowel sounds, nontender. Extremities without edema. A: 1. HYPERTENSION, POOR CONTROL. 2. RIGHT KNEE ARTHRITIS. P: We are going to start Prinzide 07/29 and have her come back in a month to check BUN, creatinine, potassium, and TSH. Chastity Davidson MD /wn/lb Authenticated by Chastity Davidson MD on 12/20/2007 00:34:26 Authorized physician signature on file [facility] NAME: CHRIS PERSON [facility] MR#: [id number] [place] [address] : 1945 PHYSICIAN: Chastity Davidson MD VISIT DATE: 11/30/2007 CLINIC PROGRESS NOTE [facility] Name: CHRIS PERSON CLINIC PROGRESS NOTE Source: [facility] ISJHXDICTAPHONESYS Document Id: [id number] Electronically signed by Conversion, [facility] Dietary Services Director [id number] at 03/09/2017 1:04 AM CDT documented in this encounter Plan of Treatment Not on filedocumented as of this encounter Visit Diagnoses Not on filedocumented in this encounter
--- OUTSIDE RECORDS SUMMARY | 2022-08-31 10:10 | XMS_ITS | Encounter Summary ---
:1945 Author Organization [facility] Address [address] [place] [address] Care Team Providers Name Role Phone Unavailable Primary Care Provider Unavailable Encounter Details Date Type Department Care Team Description 01/13/2006 Hospital Encounter HX NO MAPPING Chastity Davidson M.D. 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
--- OUTSIDE RECORDS SUMMARY | 2022-08-31 10:10 | XMS_ITS | Encounter Summary ---
:1945 Author Organization [facility] Address [address] [place] [address] Care Team Providers Name Role Phone Unavailable Primary Care Provider Unavailable Encounter Details Date Type Department Care Team Description 02/10/[address] [facility] Chastity Paige M.D. 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
--- OUTSIDE RECORDS SUMMARY | 2022-08-31 10:10 | XMS_ITS | Encounter Summary ---
:1945 Author Organization [facility] Address [address] [place] [address] Care Team Providers Name Role Phone Unavailable Primary Care Provider Unavailable Encounter Details Date Type Department Care Team Description 11/09/[address] [facility] Chastity Paige M.D. 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 encounter Last Filed Vital Signs Vital Sign Reading Time Taken Comments Blood Pressure 136/80 11/09/2012 3:43 PM SALES SUPPORT COORDINATOR Pulse 72 11/09/2012 3:38 PM SALES SUPPORT COORDINATOR Temperature - - Respiratory Rate 16 11/09/2012 3:38 PM SALES SUPPORT COORDINATOR Oxygen Saturation - - Inhaled Oxygen Concentration - - Weight 94.1 kg (207 lb 7.3 oz) 11/09/2012 3:38 PM SALES SUPPORT COORDINATOR Height 157.4 cm (5' 1.97) 11/09/2012 3:38 PM SALES SUPPORT COORDINATOR Body Mass Index 37.98 11/09/2012 3:38 PM SALES SUPPORT COORDINATOR documented in this encounter Medications at Time [...] encounter H&P Notes Chastity Davidson M.D. - 11/09/2012 3:18 PM CST [facility] DATE: 11/09/2012 CHIEF COMPLAINT/REASON FOR VISIT A 67-year-old female here for her annual physical, and she also mentions some vaginal spotting. HISTORY OF PRESENT ILLNESS The spotting quit a couple of days ago, but it lasted a week. She only noticed it when she wiped after urination. She has been wearing a pad. She had a similar problem a few years ago back in 2003. We did an endometrial biopsy, and nothing showed up. Other than that, she has felt normal. She did have sexual intercourse prior t o the spotting. PAST MEDICAL/SURGICAL HISTORY MEDICAL: 1. Arthritis. 2. Benign hypertension. 3. GERD. 4. 3, Para 3. 5. Colonoscopy in 2005. 6. Pap smear in 2010. 7. Closed fracture of the arm in 1954. 8. Tonsillectomy and adenoidectomy in 1949. 9. Fracture of the hand. SOCIAL HISTORY She is a former smoker. 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 FAMILY HISTORY Breast cancer in her mother. Kidney disease. Parkinsons disease in an aunt. Prostate cancer. Colon cancer. Lung cancer. Dementia. CURRENT MEDICATIONS 1. Calcium with D one tablet daily. 2. Hydrochlorothiazide 25 mg daily. 3. Ibuprofen p.r.n. 4. Lisinopril 10 mg daily. 5. Multivitamin daily. 6. Pantoprazole 20 mg one tablet daily. ALLERGIES 1. FLU VACCINE. 2. GENTAMICIN. 3. NEOSPORIN. 4. TOBRAMYCIN. SYSTEMS REVIEW EXTREMITIES: She has chronic knee pain. GI: She had diarrhea around [place] time, but since then has been normal stools about 3 times a day. The remainder of her review of systems is negative, except for what is mentioned in the history of present illness. VITAL SIGNS Blood pressure 142/80. Recheck 136/80. Pulse 72. Respirations 16. Temperature 36.5. Weight 94.1 kg. Height 157.4 cm. PHYSICAL EXAMINATION HEENT: Tympanic membranes are clear. Oropharynx is erythematous on the left side and in the posterior pharynx. She denies any pain. NECK: Supple without lymphadenopathy, thyromegaly, or bruits. CHEST: Clear to auscultation bilaterally. CARDIOVASCULAR: Regular rate and rhythm, no murmur. ABDOMEN: Soft, plus bowel sounds, nontender. BACK: Nontender to percussion. : The patient deferred. BREAST EXAMINATION: The patient deferred. NEUROLOGIC: Deep tendon reflexes are 2+/4. EXTREMITIES: Without edema. IMPRESSION/REPORT/PLAN 1. Benign hypertension. 2. Postmenopausal bleeding. 3. Routine general medical examination. PLAN We are going to get an ultrasound of the pelvis, basic metabolic panel. Refilled her blood pressure medicines. She is going to set up her own mammogram. She should return as needed and annually. ADMINISTRATIVE BILLING Total time spent was 15 minutes, with 10 minutes in counseling and coordination of care. DAINA:tea Doc#: [id number] cc: Electronically Signed By: CHASTITY DAVIDSON MD On: 01/09/2013 03:12 PM Source: [facility] ISJDICTAPHONESYS Document Id: [id number] documented in this encounter Miscellaneous Notes Miscellaneous - Chastity Davidson M.D. - 11/10/2012 5:16 PM CST General Message From: CHASTITY DAIVDSON MD Sent: 11/10/2012 17:16:46 SALES SUPPORT COORDINATOR Subject: General Message gave results. dishroom attendant consult anjelica Source: [facility] POWERCHART Document Id: [id number] Miscellaneous - Chastity Davidson M.D. - 11/10/2012 12:18 PM CST Normal Results Letter 10 November 2012 CHRIS FIERROMARY JANE [address] [place], [place] [phone] Dear CHRIS ROCKWELL, I am pleased to report that your results from the following diagnostic test(s) are normal. Please follow up with us as we discussed during your visit or sooner if you have any concerns. If you have questions or concerns, please do not hesitate to call our office. Result Name Current Result Previous Result Normal Range Sodium Lvl (mmol/L) 141 11/09/2012 135 - 145 Potassium Lvl (mmol/L) 4.0 11/09/2012 (L) 3.4 12/17/2011 3.5 - 5.0 Chloride (mmol/L) 104 11/09/2012 95 - 106 CO2 (mmol/L) 29 11/09/2012 21 - 30 Glucose Lvl (mg/dL) 98 11/09/2012 70 - 139 Creatinine (mg/dL) 0.8 11/09/2012 0.8 12/17/2011 0.6 - 1.2 EGFR (MDRD) >60.0 11/09/2012 >60.0 12/17/2011 EGFR (MDRD) (mL/min) >60 11/09/2012 >60 12/17/2011 BUN (mg/dL) (H) 25 11/09/2012 (H) 28 12/17/2011 5 - 24 Calcium Lvl (mg/dL) 10.2 11/09/2012 8.4 - 10.3 Sincerely, CHASTITY DAVIDSON [address] [place] [address] [id number] Electronic Signature Electronically Signed By: CHASTITY DAVIDSON MD On: 10 November 2012 This document has images extracted. Source: [facility] POWERCHART Document Id: [id number] Electronically signed by Conversion, [facility] Sweatband Separator [id number] at 03/04/2017 6:09 PM CDT Miscellaneous - Chastity Davidson M.D. - 11/09/2012 4:10 PM CST Ambulatory [facility] [address] [place] [address] [phone] Visit Information Name: CHRIS ROCKWELL [facility] Number: [id number] Current Date: 11/09/2012 16:10:39 Physicians Attending Provider: CHASTITY DAVIDSON MD Primary Care Provider: CHASTITY DAVIDSON MD Your [...] No Appointments found Your Goals/Additional instructions: Source: [facility] POWERCHART Document Id: [id number] S SUPPORT COORDINATOR Miscellaneous - Chastity Davidson M.D. - 11/09/2012 4:10 PM CST Ambulatory Depart Summary [address] [address] Visit Information Name: CHRIS ROCKWELL [facility] Number: [id number] Visit Date: 11/09/2012 16:10:38 Attending Provider: CHASTITY DAVIDSON MD Primary Care Provider: CHASTITY DAVIDSON MD CHRIS [...] clarification. Additional Information: Yes - . Source: [facility]ART Document Id: [id number] S SUPPORT COORDINATOR Samantacellnatalia - Geovanna Fajardo L.P.NLa - 11/09/2012 3:43 PM CST Quality Measures Quality Measures Entered On: 11/09/2012 15:44 SALES SUPPORT COORDINATOR Performed On: 11/09/2012 15:43 SALES SUPPORT COORDINATOR by GEOVANNA FAJARDO LPN BP/Tobacco/Misc Systolic Blood Pressure : 136mmHg Diastolic Blood Pressure : 80mmHg GEOVANNA FAJARDO LPN - 11/09/2012 15:43 SALES SUPPORT COORDINATOR Source: [facility] [employer] Document Id: [id number] S SUPPORT COORDINATOR Miscellaneous - Geovanna Fajardo L.P.N. - 11/09/2012 3:38 PM CST Adult Financial Data Analyst Intake/History Adult Financial Data Analyst Intake/History Entered On: 11/09/2012 15:40 SALES SUPPORT COORDINATOR Performed On: 11/09/2012 15:38 SALES SUPPORT COORDINATOR by GEOVANNA FAJARDO LPN Intake Chief Complaint : annual physical and pt has had some vaginal spotting recently. Temperature Core : 36.5C(Converted to: 97.7DegF) Peripheral Pulse Rate : 72/min Respiratory Rate : 16/min Heart Rhythm : Regular Systolic Blood Pressure : 142mmHg (HI) Diastolic Blood Pressure : 80mmHg NIBP Mean : 101mmHg BP Location : Left upper extremity Blood Pressure Cuff Size : Large Height : 157.4cm(Converted to: 5ft 2inch(es), 61.97inch(es)) Actual Weight : 94.1kg(Converted to: 207lb 7oz) Dosing Weight Clinic : 94.10kg Clinic BSA : 2.03 Body Mass Index : 37.98kg/m2 GEOVANNA FAJARDO LPN - 11/09/2012 15:38 SALES SUPPORT COORDINATOR General Info Information Given By : Patient Preferred Communication Mode : Verbal Languages : Andorran GEOVANNA FAJARDO LPN - 11/09/2012 15:38 SALES SUPPORT COORDINATOR Subjective Pain Symptoms : No GEOVANNA FAJARDO LPN - 11/09/2012 15:38 SALES SUPPORT COORDINATOR Dependent Habits Tobacco Use/Currently Using : No Smoking Status : Former smoker GEOVANNA FAJARDO LPN - 11/09/2012 15:38 SALES SUPPORT COORDINATOR Allergy Allergies (Active) flu vaccines Estimated Onset Date: <not entered> 07/14/2004 ; Reactions: Redness ; Created By:CHASTITY DAVIDSON MD; Reaction Status: Active ; Category: Drug ; Substance: flu vaccines ; Type: Allergy ; Updated By: CHASTTIY DAVIDSON MD; Reviewed Date: 12/17/2011 13:30 CDT gentamicin Estimated Onset Date: Unspecified ; Created By: GEOVANNA FAJARDO LPN; Reaction Status: Active ; Category: Drug ; Substance: gentamicin ; Type: Allergy ; Updated By: GEOVANNA FAJARDO LPN; Reviewed Date: 12/17/2011 13:30 CDT Neosporin Estimated Onset Date: Unspecified ; Created By: GEOVANNA FAJARDO LPN; Reaction Status: Active ; Category: Drug ; Substance: Neosporin ; Type: Allergy ; Updated By: GEOVANNA FAJARDO LPN; Reviewed Date: 12/17/2011 13:30 CDT tobramycin Estimated Onset Date: Unspecified ; Created By: GEOVANNA FAJARDO LPN; Reaction Status: Active ; Category: Drug ; Substance: tobramycin ; Type: Allergy ; Updated By: GEOVANNA FAJARDO LPN; Reviewed Date: 12/17/2011 13:30 CDT Source: [facility] POWERCHART Document Id: [id number] S SUPPORT COORDINATOR documented in this encounter Plan of Treatment Not on filedocumented as of this encounter Procedures Procedure Name Priority Date/Time Associated Diagnosis Comme nts BASIC METABOLIC Routine 11/09/2012 4:15 PM Result s for this PANEL, S/P SALES SUPPORT COORDINATOR procedure are i n the results section. documented in this encounter Results (ABNORMAL) BMP (Basic Metabolic Panel) (11/09/2012 4:15 PM SALES SUPPORT COORDINATOR) P athologist Signature Sodium, S 141 135 - 145 POWERCHART MMOLL Potassium, S 4.0 3.5 - 5.0 POWERCHART MMOLL Chloride, S 104 95 - 106 POWERCHART MMOLL CO2 Total 29 21 - 30 POWERCHART MMOLL BUN (Blood Urea 25 (H) 5 - 24 POWERCHART Nitrogen), S MGDL Creatinine 0.8 0.6 - 1.2 POWERCHART MGDL Calcium, Total, 10.2 8.4 - 10.3 POWERCHART S MGDL HXeGFR (MDRD) >60.0 POWERCHART Comment: Results are in mL/min/1.73m squared CKD Stage I: GFR > 90 CKD Stage II: GFR 60 to 89 CKD Stage III: GFR 30 to 59 CKD Stage IV: GFR 15 to 29 CKD Stage V: GFR < 15 or Dialysis eGFR Black/ >60 MLMIN PO WERCHART Glucose 98 70 - 139 MGDL POWERCHART Specimen (Source) Anatomical Collection Method Collection Time Re ceived Time Location / / Volume Laterality Blood 11/09/2012 4:15 PM SALES SUPPORT COORDINATOR Chastity Waldschmidt M.D. LAB BLOOD ADD-ON Performing Organization Address City/State/ZIP Code Phon e Number POWERCHART documented in this encounter Visit Diagnoses Not on filedocumented in this encounter
--- OUTSIDE RECORDS SUMMARY | 2022-08-31 10:10 | XMS_ITS | Encounter Summary ---
:1945 Author Organization [facility] Address [address] [place] [id number] Care Team Providers Name Role Phone Unavailable Primary Care Provider Unavailable Encounter Details Date Type Department Care Team Description 01/22/2006 Hospital Encounter [facility] Chastity Davidson M.D. 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
[2022-08-31 10:11] LABS: Basophils Absolute Auto 0.04 K/uL (0.00-0.30); Basophils Percent Auto 0.6 % (0.0-3.0); Eosinophils Percent Auto 3.2 % (0.0-7.0); Hematocrit 38.8 % (33.0-51.0); Hemoglobin* 12.2 gm/dL (12.0-16.0); Immature Granulocytes Abs Auto 0.01 K/uL (0.00-0.30); Immature Granulocytes Pct Auto 0.2 %; Lymphocytes Absolute Auto 1.43 K/uL (0.90-2.90); Lymphocytes Percent Auto 22.7 % (20-44); Mean Corpuscular HGB Conc 31 gm/dL (32-36); Mean Corpuscular Hemoglobin 30 pg (26-34); Mean Corpuscular Volume 97 fL (80-100); Monocytes Percent Auto 8.3 % (0.0-11.0); Neutrophils Absolute Auto 4.09 K/uL (1.7-7.0); Platelet Count* 332 K/uL (140-440); RDW Coefficient of Variation % 13.1 % (11.5-15.5); Red Blood Count 4.02 m/uL (4.00-5.20); White Blood Count* 6.29 K/uL (4.50-11.00)
[2022-08-31 10:12] LABS: Slide Review Reflex No
[2022-08-31 10:26] LABS: Albumin* 4.4 g/dL (3.3-5.0); Chloride* 107 mmol/L (96-114); Sodium* 141 mmol/L (135-149)
[2022-08-31 10:28] LABS: Bilirubin Total* 0.6 mg/dL (0.1-1.5); Creatinine* 0.9 mg/dL (0.5-1.5); Estimated Glomerular Filt Rate 66 ml/min
[2022-08-31 10:29] LABS: Alanine Aminotransferase* 25 U/L (4-35); Alkaline Phosphatase* 87 U/L (40-150); Aspartate Amino Transferase* 31 U/L (12-35); Blood Urea Nitrogen* 21 mg/dL (7-30); Calcium* 9.4 mg/dL (8.4-10.6); Carbon Dioxide* 27 mmol/L (20-32); Glucose* 105 mg/dL (60-115); Total Protein* 7.8 g/dL (6.0-8.3)
[2022-08-31 10:32] LABS: C Reactive Protein* 0.7 mg/dL (0.5-1.0)
[2022-08-31 10:46] LABS: Procalcitonin* 0.05 ng/mL (<0.50)
[2022-08-31] MEDS: EPINEPHrine 0.3 MG PEN IM (14:35)
[2022-08-31] MEDS: dexAMETHasone 4 MG/ML VIAL 10 MG IV (14:36)
--- NOTE | 2022-08-31 19:56 | ED.NURSE ---
Pt noted to have runs of ST 150s on monitor, confirmed HR with radial pulse. Pt denies pain or change in symptoms. HR down to 110s. MD informed, EKG done per verbal order. VSS at this time.
[2022-08-31 20:03] LABS: SARS Antigen* negative (Negative)
--- NOTE | 2022-08-31 21:28 | ED.NURSE ---
Report given to ANSHU Perez.
[2022-08-31] MEDS: hydrOXYzine pamoate 25 MG CAPSULE 50 MG PO (21:46)
[2022-09-01] VITALS (35 sets, daily range): BP systolic 116–155; BP diastolic 56–89; PULSE 85–118; O2SAT 89–97
--- NOTE | 2022-09-01 01:06 | ED.NURSE ---
pt ambulated to restroom. states she feels ok.
[2022-09-01] MEDS: hydrOXYzine pamoate 25 MG CAPSULE PO (03:59)
== END 2022-09-01 08:21 | disposition home or self-care (01) ==
PROVIDERS: Family Medicine; Emergency Provider Family Medicine; PCP Family Medicine
DX: T78.3XXA Angioneurotic edema, initial encounter (principal)
CPT/HCPCS: 36415; 80053; 83520; 84145; 85025; 86140; 87426; 93005; 94761; 96372; 96374; 96375; 99285; 99291; 99292; A9270; J0171; J1100; J1200; J3410; S0028

== ENCOUNTER 2023-07-08 08:27 | Outpatient (CLI) | payer MEDICARE, SELFPAY ==
--- NOTE | 2023-07-08 08:45 | CRLHL7_ITS ---
For Patients: As a result of the Cures Act, medical imaging exams and procedure reports are released immediately into your electronic medical record. You may view this report before your referring provider. If you have questions, please contact your health care provider. DIGITAL DIAGNOSTIC BILATERAL MAMMOGRAM USING TOMOSYNTHESIS AND COMPUTER-AIDED DETECTION LEFT BREAST ULTRASOUND CLINICAL HISTORY: LEFT breast lump. COMPARISON: 12/20/2022, 11/22/2021, 11/20/2021, 10/22/2020. TECHNIQUE: Digital BILATERAL mammogram in four projections. Tomosynthesis and CAD utilized. Real-time ultrasound imaging of LEFT breast with imaging documentation. BREAST COMPOSITION: The breasts are heterogeneously dense, which may obscure small masses. FINDINGS: 3D CC/MLO BILATERAL mammogram images submitted. Benign calcifications are present bilaterally. No suspicious masses or architectural distortion. No adenopathy. Targeted LEFT breast ultrasound performed in the area of concern at 11 o`clock 2 cm from the nipple. Normal fibroglandular tissue is present. No fibrocystic change or mass. IMPRESSION: No evidence of malignancy. RECOMMENDATIONS: Annual BILATERAL screening mammography. Results and recommendations discussed with the patient. BI-RADS Category 2: Benign A lay language report of this examination will be provided to the patient. Dictated by Anderson Hart MD @ 07/08/2023 9:28:57 AM /Dictated by: Anderson Hart MD @ 07/08/2023 9:29:00 AM (Electronically Signed)
--- NOTE | 2023-07-08 09:15 | CRLHL7_ITS ---
For Patients: As a result of the Cures Act, medical imaging exams and procedure reports are released immediately into your electronic medical record. You may view this report before your referring provider. If you have questions, please contact your health care provider. PLEASE SEE DIGITAL DIAGNOSTIC BILATERAL MAMMOGRAM PERFORMED SAME DAY CRL:mishel florentino/Dictated by: Anderson Hart MD @ 07/08/2023 9:29:00 AM (Electronically Signed)
== END 2023-07-08 08:28 | disposition home or self-care (01) ==
LOC: MAMMO 08:28
PROVIDERS: PCP Family Medicine; Visit Provider Family Medicine
DX: N63.20 Unspecified lump in the left breast, unspecified quadrant (principal); R92.2 Inconclusive mammogram
CPT/HCPCS: 76642; 77066; G0279

== ENCOUNTER 2024-03-07 10:46 | Outpatient (CLI) | payer MEDICARE, SELFPAY ==
--- OUTSIDE RECORDS SUMMARY | 2024-03-07 10:49 | XMS_ITS | Clinical Summary ---
Author Organization [employer] [facility] Address [place], [place] [address] Care Team Providers Care Petrology Teacher Name Role Phone Anderson Castillo MD Primary Care Provider + Family History Medical History Relation Name Comments Cancer-breast Mother Relation Name Status Comments Mother Social History Tobacco Use Types Packs/Day Years Used Date Smoking Tobacco: Never Assessed Social Connections Answer Date Recorded Frequency of Communication with Friends and Fami ly Not on file 01/26/2022 Sex and Gender Information Value Date Recorded Sex Assigned at Not on file Gender Identity Not on file Sexual Orientation Not on file Obstetrics History Plan of Treatment Health Maintenance Due Date Last Done Comments Tdap 1956 Depression screening for age 12+ 1957 BMI (ht and wt on same day) for age 18+ 1963 Hepatitis C screening for age 18-79 1963 Tetanus booster 1965 Zoster (shingles) series for age 50+ (1 of 2) 1995 DEXA/DXA scan for age 65+ 2010 Pneumococcal series for age 65+ (1 of 1 - PCV) 2010 COVID-19 vaccine series ( season) 2023 06/23/2022, 08/01/2021, 12/16/2020 Influenza for age 65+ 06/05/2024 Care Teams Petrology Teacher Relationship Specialty Start Date End Date Anderson Castillo MD [address] [place] [address] PCP - General Family Practice 11/07/21
== END 2024-03-07 10:47 | disposition home or self-care (01) ==
PROVIDERS: PCP Family Medicine; Visit Provider Family Medicine
DX: E55.9 Vitamin D deficiency, unspecified (principal); I10 Essential (primary) hypertension; Z13.220 Encounter for screening for lipoid disorders
CPT/HCPCS: 80048; 80061; 82306; 85025

== ENCOUNTER 2024-03-14 06:39 | Outpatient (CLI) | payer MEDICARE, SELFPAY ==
--- OUTSIDE RECORDS SUMMARY | 2024-03-14 06:41 | XMS_ITS | Clinical Summary ---
Author Organization [employer] [facility] Address [place], [place] [address] Care Team Providers Care House Rn Name Role Phone Anderson Castillo MD Primary [...] Influenza for age 65+ 06/05/2024 Care Teams House Rn Relationship Specialty Start Date End Date Anderson Castillo MD [address] [place] [address] PCP - General Family Practice 11/07/21
--- NOTE | 2024-03-14 07:53 | W.ANESCHARGE ---
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
--- NOTE | 2024-03-14 10:02 | W.ANESCHARGE ---
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
== END 2024-03-14 06:40 | disposition home or self-care (01) ==
LOC: OP CLINIC 06:40
PROVIDERS: PCP Family Medicine; Visit Provider Surgery
DX: K22.70 Barrett's esophagus without dysplasia (principal); K44.9 Diaphragmatic hernia without obstruction or gangrene; K31.7 Polyp of stomach and duodenum
CPT/HCPCS: 00731; 43239; 88305; 99100; J2704

== ENCOUNTER 2024-08-11 11:37 | Outpatient (CLI) | payer MEDICARE, SELFPAY ==
--- OUTSIDE RECORDS SUMMARY | 2024-08-11 11:40 | XMS_ITS | Clinical Summary ---
Author Organization [facility] [facility] Address [place], [place] [address] Care Team Providers Care Architecture Department Chair Name Role Phone Anderson Castillo MD Primary [...] on file Obstetrics History Plan of Treatment Upcoming Encounters Date Type Department Care Team (Latest Contact Info) Description 09/08/2024 11:55 AM BOOKING OFFICER Hospital Encounter [facility] [address] [place] [address] Fausto Huitron MD [address] [facility] [[email or web address] [address] [place], [place] [id number] 09/08/2024 12:55 PM BOOKING OFFICER - 09/08/2024 1:40 PM BOOKING OFFICER Surgery [facility] [address] [place] [address] Fausto Huitron MD [address] [facility] [[email or web address]] [address] [place], [place] [id number] ESOPHAGOGASTRODUODENOSCOPY 360 [address] ABLATION Scheduled Procedures Name Priority Associated Diagnoses Date/Ti md ESOPHAGOGASTRODUODENOSCOPY 3 60 DEGREE ABLATION Elective Mendez's Esophagus, Dyphasia 09/08/2024 12:55 PM BOOKING OFFICER Health Maintenance Due Date Last Done Comments Tdap 1956 Depression screening for age 12+ 1957 BMI (ht and wt on same day) for age 18+ 1963 Hepatitis C screening for age 18-79 1963 Tetanus booster 1965 Zoster (shingles) series for age 50+ (1 of 2) 1995 DEXA/DXA scan for age 65+ 2010 Pneumococcal series for age 65+ (1 of 1 - PCV) 2010 RSV vaccine for adults or pr egnancy (1 - 1-dose 75+ series) 2020 COVID-19 vaccine series ( - 2023- season) 2024 06/23/2022, 08/01/2021, 12/16/2020 Influenza for age 65+ 06/05/2024 Care Teams Architecture Department Chair Relationship Specialty Start Date End Date Anderson Castillo MD [address] [place] [address] PCP - General Family Practice 11/07/21
== END 2024-08-11 11:38 | disposition home or self-care (01) ==
PROVIDERS: PCP Family Medicine; Visit Provider Family Medicine
DX: I10 Essential (primary) hypertension (principal)
CPT/HCPCS: 80048; 85025

== ENCOUNTER 2024-11-16 15:07 | Outpatient (CLI) | payer MEDICARE, SELFPAY | END 2024-11-16 15:08 | disposition home or self-care (01) | LOC: MAMMO 15:09 | PROVIDERS: PCP Family Medicine; Visit Provider Family Medicine | DX: Z12.31 Encounter for screening mammogram for malignant neoplasm of breast (principal); R92.333 Mammographic heterogeneous density, bilateral breasts | CPT/HCPCS: 77063; 77067 ==

== ENCOUNTER 2024-12-29 11:46 | Outpatient (CLI) | payer MEDICARE, SELFPAY | END 2024-12-29 11:47 | disposition home or self-care (01) | LOC: FBOREF 11:47 | PROVIDERS: PCP Family Medicine; Visit Provider Family Medicine | DX: I10 Essential (primary) hypertension (principal) | CPT/HCPCS: 80048; 85025 ==

== ENCOUNTER 2025-04-10 11:29 | Outpatient (CLI) | payer MEDICARE, SELFPAY | END 2025-04-10 11:30 | disposition home or self-care (01) | PROVIDERS: PCP Family Medicine; Visit Provider Family Medicine | DX: I10 Essential (primary) hypertension (principal); M81.0 Age-related osteoporosis without current pathological fracture; R53.83 Other fatigue | CPT/HCPCS: 80048; 80061; 82306; 85025 ==

== ENCOUNTER 2025-04-27 13:11 | Outpatient (CLI) | payer MEDICARE, SELFPAY ==
--- NOTE | 2025-04-27 13:30 | CRLHL7_ITS ---
For Patients: As a result of the Century Cures Act, medical imaging exams and procedure reports are released immediately into your electronic medical record. You may view this report before your referring provider. If you have questions, please contact your health care provider. DXA BONE MINERAL DENSITY STUDY Reason for exam: Age-related osteoporosis without current pathology. Current height (in): 62. Weight (lb): 210. Menopause age: 52. Ethnicity: White. 1. Have you had a previous hip or vertebral fracture? No. 2. Have you had any fractures during your adult life which did not result from significant trauma (e.g., auto accident)? No. 3. Did either of your parents have a hip fracture? No. 4. Do you smoke? No. 5. Have you ever taken Glucocorticoids? Yes. 6. Do you have rheumatoid arthritis? No. 7. Do you have secondary osteoporosis? No. 8. Do you drink 3 or more alcoholic drinks per day? No. 9. Are you being treated for osteoporosis? Yes. 10. Have you ever taken any of the following medications: Actonel, Evista, Fosamax, Miacalcin, Reclast, Boniva, Forteo, HRT (i.e. estrogen/hormone therapy), Protelos, Prolia, Vitamin D, Calcium, other ??? please specify. ANSWER: Yes, Vitamin D and Calcium. 11. Do you have any of the following medical conditions: Anorexia or bulimia, asthma or emphysema, end stage renal disease, hyperparathyroidism, any seizure disorders, cancer, inflammatory bowel diseases, hysterectomy, other ??? please specify. ANSWER: No. 12. What was your maximum height (inches)? 64. 13. Do you perform weight bearing exercise regularly? Yes. 14. Do you regularly consume dairy products? Yes. 15. Do you drink caffeinated beverages? Yes. 16. At what age did your period start? 10. 17. Are you premenopausal? No. 18. How many full term pregnancies have you had? 3. 19. Have you ever missed your period for more than 6 months in a row (not including or menopause)? No. TECHNIQUE: Bone mineral density study was performed using the [employer]. FINDINGS: The results of the study expressed as bone mineral density (BMD) are as follows: Lumbar spine L1 to L3: BMD: 1.047 g/cm2. T-score: 0.3. Z-score: 2.9. Neck Left: BMD: 0.505 g/cm2. T-score: -3.1. Z-score: -0.8. Right: BMD: 0.579 g/cm2. T-score: -2.4 . Z-score: -0.1. Total Left: BMD: 0.743 g/cm2. T-score: -1.6 . Z-score: 0.4. Right: BMD: 0.794 g/cm2. T-score: -1.2. Z-score: 0.8. IMPRESSION: Osteoporosis. *Comparison exams done prior to 03/2020 were performed on different unit, [employer]. COMPARISON: Compared with scan of 03/11/2023, the bone mineral density has increased by 12.0 percent at the spine and increased by 7.2 percent at the hip. Emerald Borjas M.D. Diagnostic Radiologist [email or web address] RAFA/rony SP/Dictated by: Emerald Borjas MD @ 05/01/2025 7:13:00 AM (Electronically Signed)
== END 2025-04-27 13:12 | disposition home or self-care (01) ==
LOC: RAD 13:12
PROVIDERS: PCP Family Medicine; Visit Provider Family Medicine
DX: M81.0 Age-related osteoporosis without current pathological fracture (principal)
CPT/HCPCS: 77080